=== PATIENT | male | born 1960 | race Caucasian/White ===

== ENCOUNTER 2017-02-09 18:19 | Inpatient (IN) | payer MEDICAID, OTHER ==
[~2017-02-09] VITALS: Ht 182.9 cm; Wt 60.0 kg
[~2017-02-09 18:19] MED LIST: IBUP-232 PO
[2017-02-09 18:39] VITALS: BP 98/57; PULSE 101; RESP 16; TEMP 98.5; O2SAT 95
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
[2017-02-09] MEDS ORDERED: SODIUM CHLOR 0.9% 1000 ML INJ 1,000 ML IV ONE (19:15)
[2017-02-09] MEDS ORDERED: predniSONE 20 MG TAB PO ONE (19:15)
[2017-02-09] MEDS: RESP: ALBUTEROL 2.5 MG/IPRATROPIUM 0.5 MG NEB (SCH) INH ×2 (19:33→19:34)
[2017-02-09 19:34] VITALS: O2SAT 94
[2017-02-09] MEDS ORDERED: HYDR-3534 PO (19:39)
[2017-02-09] MEDS ORDERED: OXYC30TA62 PO (19:39)
--- NOTE | 2017-02-09 19:55 | RADRPT ---
EXAM DATE/TIME: 02/09/2017 19:27 [place] COMPARISON: CHEST SINGLE AP, November 18, 2016, 12:59. INDICATIONS : Short of breath. MEDICAL HISTORY : None. SURGICAL HISTORY : None. ENCOUNTER: Initial ACUITY: 2 days PAIN SCORE: 2/10 LOCATION: Bilateral chest FINDINGS: Trace left base atelectasis. Potentially a hazy infiltrate developing in the right upper lobe. No ple ural effusion. No pneumothorax. Heart size stable, within normal limits. CONCLUSION: Suspected early or mild pneumonia in the right upper lobe. Clinical correlation and followup radiogra phs are recommended. Mild left base atelectasis. Kilo Rowell MD on February 09, 2017 at 19:52 Board Certified Radiologist. This report was verified electronically.
[2017-02-09 20:14] LABS: AUTOMATED NEUTROPHIL # 4.7 TH/MM3 (1.8-7.7); BASOPHIL % 0.3 % (0.0-2.0); EOSINOPHIL # 0.1 TH/MM3 (0-0.4); EOSINOPHIL % 0.8 % (0.0-4.0); HEMATOCRIT 37.4 % (39.0-51.0); HEMO FLAGS DIFF FINAL; LYMPH % 21.4 % (9.0-44.0); LYMPHOCYTE # 1.5 TH/MM3 (1.0-4.8); MEAN CELL VOLUME 106.8 FL (80.0-100.0); MEAN CORPUSCULAR HEMOGLOBIN 35.9 PG (27.0-34.0); MEAN CORPUSCULAR HGB CONC 33.6 % (32.0-36.0); MONO % 9.5 % (0.0-8.0); PLATELET COUNT 110 TH/MM3 (150-450); RED CELL DISTRIBUTION WIDTH 14.2 % (11.6-17.2); WHITE BLOOD COUNT 6.9 TH/MM3 (4.0-11.0)
[2017-02-09 20:21] VITALS: O2SAT 86
[2017-02-09 20:22] LABS: BICARBONATE 29.2 MEQ/L (21.0-32.0); TOTAL BILIRUBIN ADULT 1.1 MG/DL (0.2-1.0)
[2017-02-09 20:23] LABS: POTASSIUM 2.9 MEQ/L (3.5-5.1)
[2017-02-09 20:24] LABS: CALCIUM-PROTEIN CORRECTED 7.2 MG/DL (8.5-10.1)
[2017-02-09] MEDS ORDERED: AZITHROMYCIN INJ 500 MG in SODIUM CHLOR 0.9% 250 ML INJ 250 ML IV ONE (20:45)
[2017-02-09] MEDS ORDERED: POTASSIUM CHLORIDE 25 MEQ EFFERVESCENT TAB PO ONE (20:45)
[2017-02-09] MEDS ORDERED: cefTRIAXone INJ 1,000 MG in SODIUM CHLORIDE 0.9% INJ 100 ML IV ONE (20:45)
[2017-02-09] MEDS ORDERED: CALCIUM GLUCONATE INJ 1 GM in SODIUM CHLORIDE 0.9% INJ 100 ML IV ONE (20:45)
--- NOTE | 2017-02-09 21:07 | HHI.HP ---
[facility] No Primary Care Physician Admission Diagnosis pneumonia, hypokalemia, hypocalcemia Diagnoses: (1) Alcohol abuse Diagnosis: Principal (2) PNA (pneumonia) Diagnosis: Principal (3) Hypoxia Diagnosis: Principal (4) COPD (chronic obstructive pulmonary disease) Diagnosis: Principal (5) Thrombocytopenia Diagnosis: Principal (6) Hypocalcemia Diagnosis: Principal (7) Hypokalemia Diagnosis: Principal (8) Lactic acidosis Diagnosis: Principal Travel History International Travel<30 Days: No Contact w/Intl Traveler <30 Da: No Traveled to Known Affected Are: No History of Present Illness This is a 56-year-old Homeless male with a PMH of Depression, Alcohol Abuse and Tobacco Abuse was brought to the ER by Police under [place] Act. Per patient he drinks half a gallon of unknown alcohol daily. Today was found lying on a bench and unable to ambulate. Patient does report recent cough and generalized malaise. On arrival, BP 98/57, HR 101, O2 sat 95% on RA, Afebrile. While in ER , episode of hypoxia with O2 sat 86% on RA. Currently 98%. CBC at baseline. K + 2.9. Lactic Acid 4.8. Ca 7.3. Alcohol 297. CXR with early or mild pneumonia right upper lobe. S/p Blood Cultures, Rocephin/Zithro in ER. Review of Systems Except as stated in HPI: all other systems reviewed are Neg ROS: 14 point review of systems otherwise negative. Past Family Social History Past Medical History PMH: Depression, Alcohol Abuse and Tobacco Abuse Past Surgical History PAST SURGICAL HISTORY: Plate Head Allergies: Coded Allergies: No Known Allergies (Verified , 02/09/17) Family History PAST FAMILY HISTORY: Reviewed. No h/o DM or CAD Social History PAST SOCIAL HISTORY: Positive for alcohol, tobacco and drugs. Physical Exam Vital Signs Vital Signs Date Time Temp Pulse Resp B/P Pulse Ox O2 Delivery O2 Flow Rate FiO2 02/09/17 20:21 86 Room Air 02/09/17 19:34 94 21 02/09/17 18:39 98.5 101 16 98/57 95 Physical Exam PE: GENERAL: Middle-aged male in no acute distress. HEENT: PERRLA, EOMI. No scleral icterus or conjunctival pallor. No lid lag or facial droop. CARDIOVASCULAR: Regular rate and rhythm. No obvious murmurs to auscultation. No chest tenderness to palpation. RESPIRATORY: No obvious rhonchi, +wheezing. Clear to auscultation. Breath sounds equal bilaterally. GASTROINTESTINAL: Abdomen soft, non-tender, nondistended. BS normal. MUSCULOSKELETAL: Extremities without clubbing, cyanosis, or edema. No obvious deformities. NEUROLOGICAL: Awake, alert and oriented x4. No focal neurologic deficits. Moving both upper and lower extremities spontaneously. Laboratory Laboratory Tests Test 02/09/17 19:47 White Blood Count 6.9 Red Blood Count 3.50 Hemoglobin 12.5 Hematocrit 37.4 Mean Corpuscular Volume 106.8 Mean Corpuscular Hemoglobin 35.9 Mean Corpuscular Hemoglobin 33.6 Concent Red Cell Distribution Width 14.2 Platelet Count 110 Mean Platelet Volume 9.1 Neutrophils (%) (Auto) 68.0 Lymphocytes (%) (Auto) 21.4 Monocytes (%) (Auto) 9.5 Eosinophils (%) (Auto) 0.8 Basophils (%) (Auto) 0.3 Neutrophils # (Auto) 4.7 Lymphocytes # (Auto) 1.5 Monocytes # (Auto) 0.7 Eosinophils # (Auto) 0.1 Basophils # (Auto) 0.0 CBC Comment DIFF FINAL Differential Comment Sodium Level 137 Potassium Level 2.9 Chloride Level 99 Carbon Dioxide Level 29.2 Anion Gap 9 Blood Urea Nitrogen 2 Creatinine 0.51 Estimat Glomerular Filtration 169 Rate Random Glucose 82 Calcium Level 7.3 Protein Corrected Calcium 7.2 Total Bilirubin 1.1 Aspartate Amino Transf 191 (AST/SGOT) Alanine Aminotransferase 52 (ALT/SGPT) Alkaline Phosphatase 129 Total Protein 7.4 Albumin 2.1 Ethyl Alcohol Level 297 Result Diagram: 02/09/17194602/09/171946 Assessment and Plan Problem List: (1) Alcohol abuse ICD Code: F10.10 Status: Acute (2) PNA (pneumonia) ICD Code: J18.9 Status: Acute (3) COPD (chronic obstructive pulmonary disease) ICD Code: J44.9 Status: Acute (4) Lactic acidosis ICD Code: E87.2 Status: Acute (5) Hypoxia ICD Code: R09.02 Status: Acute (6) Hypocalcemia ICD Code: E83.51 Status: Acute (7) Hypokalemia ICD Code: E87.6 Status: Acute (8) Thrombocytopenia ICD Code: D69.6 Status: Acute Assessment and Plan A/P: 1. Alcohol Abuse: w/ Acute Alcohol Intoxication, arrived w/ Police under Dean 's Act. Reports drinking "a gallon" of alcohol today. Alcohol 297. CIWA, Seizure Precautions, MVT/Thiamine/Folate replacement. 2. PNA: +cough, episode of Hypoxia while in ER w/ O2 sat 86% on RA, currently 98%. CXR w/ early or mild pneumonia right upper lobe, images reviewed by me. S /p Rocephin/Zithro in ER, will continue w/ IV Abx, DuoNeb prn. 3. COPD: Chronic Respiratory Failure w/ Acute Exacerbation, +wheezing on exam , s/p Prednisone po in ER, will continue w/ Solu-Medrol, DuoNeb, Symbicort, Mucinex 4. Lactic Acidosis: Lactate 4.8, likely combination of acute infection w/ alcohol intoxication. S/p Blood Cultures, will follow, IVF for hydration, repeat Lactic for trend. 5. Hypocalcemia: Ca 7.3, s/p replacement, will recheck and replace as needed. 6. Hypokalemia: K+ 2.9, s/p replacement, recheck labs in am, replace if needed. 7. Thrombocytopenia: Platelets 110, preivously 155 on 10/21/16, no active bleeding, will repeat labs in am. 8. DVT Prophylaxis: SCD/Teds. 9. Social work for d/c planning as needed. 10. Case discussed w/ ER physician at length. Physician Certification 2 Midnight Certification Type: Admission for Inpatient Services Order for Inpatient Services The services are ordered in accordance with Medicare regulations or non- Medicare payer requirements, as applicable. In the case of services not specified as inpatient-only, they are appropriately provided as inpatient services in accordance with the 2-midnight benchmark. Estimated LOS (days): 2 days is the estimated time the patient will need to remain in the hospital, assuming treatment plan goals are met and no additional complications. Post-Hospital Plan: Not yet determined Mary Salcedo MD Feb 09, 2017 21:06
[2017-02-09] MEDS ORDERED: RESP: ALBUTEROL 2.5 MG/IPRATROPIUM 0.5 MG NEB (PRN) NEB (21:15)
[2017-02-09] MEDS ORDERED: MAGNESIUM HYDROXIDE SUSP 30 ML CUP PO PRN (21:15)
[2017-02-09] MEDS ORDERED: HALOPERIDOL LACTATE 5 MG/ML AMP IM PRN (21:15)
[2017-02-09] MEDS ORDERED: LORazepam 2 MG/ML VIAL IV PUSH PRN ×2 (21:15)
[2017-02-09] MEDS ORDERED: ACETAMINOPHEN 325 MG TAB PO PRN (21:15)
[2017-02-09] MEDS ORDERED: SODIUM CHLORIDE 0.9% FLUSH 10 ML FLUSH IV FLUSH PRN (21:15)
[2017-02-09] MEDS ORDERED: SENNOSIDES 8.6 MG TAB PO PRN (21:15)
[2017-02-09] MEDS ORDERED: LACTULOSE SYRUP 20 GM/30 ML CUP PO PRN (21:15)
[2017-02-09] MEDS ORDERED: MORPHINE SULFATE 4 MG/ML INJ IV PRN (21:15)
[2017-02-09] MEDS ORDERED: FLUMAZENIL 0.5 MG/5 ML VIAL IV PUSH PRN (21:15)
[2017-02-09] MEDS ORDERED: BISACODYL 10 MG SUPP RECTAL PRN (21:15)
[2017-02-09] MEDS ORDERED: ONDANSETRON HCL 4 MG/2 ML VIAL IVP PRN (21:15)
[2017-02-09 22:01] VITALS: BP 100/66; PULSE 112; RESP 20; TEMP 98.2; O2SAT 90
[2017-02-09] MEDS: LORazepam 2 MG/ML VIAL IV PUSH PRN (22:02)
[2017-02-09] MEDS: SODIUM CHLOR 0.9% 1000 ML INJ 1,000 ML IV SCH (22:12)
[2017-02-09] MEDS: guaiFENesin E.R. 600 MG TAB PO SCH (22:12)
[2017-02-09] MEDS: BUDESONIDE-FORMOTEROL 160/4.5 MCG INHALER INH SCH (22:46)
[2017-02-09 23:06] LABS: LACTIC ACID GHOST NOT REPORTABLE
[2017-02-09] MEDS: methylPREDNISolone SOD SUCC 40 MG/1 ML VIAL IV PUSH SCH (23:57)
[2017-02-10] VITALS (13 sets, daily range): BP systolic 103–127; BP diastolic 62–94; PULSE 82–120; RESP 18–20; TEMP 96.9–98.3; O2SAT 92–99
[2017-02-10] MEDS: methylPREDNISolone SOD SUCC 40 MG/1 ML VIAL IV PUSH SCH ×4 (06:15→23:11)
[2017-02-10] MEDS: SODIUM CHLOR 0.9% 1000 ML INJ 1,000 ML IV SCH ×2 (07:01→17:01)
[2017-02-10] MEDS: BUDESONIDE-FORMOTEROL 160/4.5 MCG INHALER INH SCH ×2 (08:48→21:44)
[2017-02-10] MEDS: THIAMINE HCL 100 MG TAB PO SCH (08:49)
[2017-02-10] MEDS: MULTIVITAMINS/MINERALS THERAPEUTIC TAB PO SCH (08:49)
[2017-02-10] MEDS: guaiFENesin E.R. 600 MG TAB PO SCH ×2 (08:49→21:44)
[2017-02-10] MEDS: SODIUM CHLORIDE 0.9% FLUSH 10 ML FLUSH IV FLUSH SCH ×2 (08:49→21:45)
[2017-02-10] MEDS: DOCUSATE SODIUM 50 MG/SENNA 8.6 MG TAB PO SCH ×2 (08:49→21:00)
[2017-02-10] MEDS: FOLIC ACID 1 MG TAB PO SCH (08:49)
[2017-02-10] MEDS: LORazepam 1 MG TAB PO PRN ×2 (09:22→21:45)
--- NOTE | 2017-02-10 09:58 | HHI.PR ---
Subjective Remarks Follow up for pneumonia, COPD exacerbation, alcohol abuse. The patient is drowsy upon my evaluation but awakens to answer few questions. He reports recent productive cough with yellow-green sputum. He reports chills and sweats sometimes, but no fevers. He denies chest pain. Does have shortness of breath and occasional wheezing. He states he feels just weak. He does report history of alcohol withdrawal and seizures in the past. Objective Vitals Vital Signs Date Time Temp Pulse Resp B/P Pulse Ox O2 Delivery O2 Flow Rate FiO2 02/10/17 07:48 98.0 82 18 123/89 99 02/10/17 04:04 96.9 89 18 110/73 94 02/10/17 03:45 87 02/10/17 00:21 97 02/10/17 00:08 97.0 98 18 103/62 98 02/09/17 22:01 98.2 112 20 100/66 90 Room Air 02/09/17 20:21 86 Room Air 02/09/17 19:34 94 21 02/09/17 18:39 98.5 101 16 98/57 95 Result Diagram: 02/09/17194602/09/171946 Imaging Last Impressions Chest X-Ray 02/09/17 0000 Signed Impressions: Service Date/Time: Thursday, February 09, 2017 19:27 - CONCLUSION: Suspected early or mild pneumonia in the right upper lobe. Clinical correlation and followup radiographs are recommended. Mild left base atelectasis. Kilo Rowell MD Objective Remarks GENERAL: Well-nourished, well-developed unkempt appearing middle aged male patient in [facility]. SKIN: Warm and dry. No rash. HEENT: Normocephalic. Atraumatic.Pupils equal and round. Mucous membranes pink and moist. NECK: Supple. Trachea midline. CARDIOVASCULAR: Regular rate and rhythm. S1, S2 noted. No murmur appreciated. RESPIRATORY: No accessory muscle use. Diffuse expiratory wheezing. Breath sounds equal bilaterally. GASTROINTESTINAL: Abdomen soft, non-tender, nondistended. Normoactive bowel sounds x4. MUSCULOSKELETAL: No obvious deformities. Extremities without clubbing, cyanosis , or edema. NEUROLOGICAL: Awake and alert. No obvious cranial nerve deficits. Motor grossly within normal limits. Normal speech. PSYCHIATRIC: Appropriate mood and affect; insight and judgment normal. Medications and IVs Current Medications Medications (Trade) Dose Ordered Sig/Veronika Route Start Time Stop Time Status Last Admin (Levaquin 750 Mg Premix Inj) 150 ml @ 100 mls/hr Q24H IV 02/10/17 21:00 (Mucinex Er) 600 mg BID PO 02/09/17 21:15 02/10/17 08:49 (Symbicort 160-4.5 Inh) 2 puff Q12HR INH 02/09/17 21:15 02/10/17 08:48 (Folate) 1 mg DAILY PO 02/10/17 09:00 02/15/17 08:59 02/10/17 08:49 (Vitamin B1) 100 mg DAILY PO 02/10/17 09:00 02/10/17 08:49 (Theragran M Tab) 1 tab DAILY PO 02/10/17 09:00 02/15/17 08:59 02/10/17 08:49 (Romazicon Inj) 0.2 mg Q1M PRN IV PUSH 02/09/17 21:15 (Ativan) 1 mg Q4H PRN PO 02/09/17 21:15 02/10/17 09:22 (Ativan Inj) 1 mg Q4H PRN IV PUSH 02/09/17 21:15 02/10/17 06:15 (Ativan) 2 mg Q2H PRN PO 02/09/17 21:15 (Ativan Inj) 2 mg Q2H PRN IV PUSH 02/09/17 21:15 (Ativan Inj) 2 mg Q1H PRN IV PUSH 02/09/17 21:15 02/09/17 22:02 (Ativan Inj) 2 mg Q15M PRN IV PUSH 02/09/17 21:15 Haloperidol Lactate 2 mg 2 mg Q15M PRN IM 02/09/17 21:15 (NS 1000 ml Inj) 1,000 ml @ 100 mls/hr Q10H IV 02/09/17 21:01 02/10/17 07:01 (NS Flush) 2 ml UNSCH PRN IV FLUSH 02/09/17 21:15 (NS Flush) 2 ml BID IV FLUSH 02/10/17 09:00 (Zofran Inj) 4 mg Q6H PRN IVP 02/09/17 21:15 (Tylenol) 650 mg Q6H PRN PO 02/09/17 21:15 ([place] 5-325 Mg) 1 tab Q4H PRN PO 02/09/17 21:15 (Morphine Inj) 2 mg Q3H PRN IV 02/09/17 21:15 (Christal-Colace) 1 tab BID PO 02/10/17 09:00 (Milk Of Magnesia Liq) 30 ml Q12H PRN PO 02/09/17 21:15 (Senokot) 17.2 mg Q12H PRN PO 02/09/17 21:15 (Dulcolax Supp) 10 mg DAILY PRN RECTAL 02/09/17 21:15 (Lactulose Liq) 30 ml DAILY PRN PO 02/09/17 21:15 (SoluMEDROL INJ) 40 mg Q6HR IV PUSH 02/10/17 00:00 02/10/17 06:15 A/P Problem List: (1) Alcohol abuse ICD Code: F10.10 Status: Acute (2) PNA (pneumonia) ICD Code: J18.9 Status: Acute (3) COPD (chronic obstructive pulmonary disease) ICD Code: J44.9 Status: Acute (4) Lactic acidosis ICD Code: E87.2 Status: Acute (5) Hypoxia ICD Code: R09.02 Status: Acute (6) Hypocalcemia ICD Code: E83.51 Status: Acute (7) Hypokalemia ICD Code: E87.6 Status: Acute (8) Thrombocytopenia ICD Code: D69.6 Status: Acute Assessment and Plan 56-year-old Homeless male with a PMH of Depression, Alcohol Abuse and Tobacco Abuse was brought to the ER by Police under [place] Act. Alcohol Abuse: w/ Acute Alcohol Intoxication, arrived w/ Police under [place]'s Act. Reports drinking "a gallon" of alcohol today. Alcohol 297. CIWA, Seizure Precautions, MVT/Thiamine/Folate replacement. Community Acquired PNA: +cough/sputum; episode of hypoxia while in ER w/ O2 sat 86% on RA, currently 98%. CXR images reviewed, shows pneumonia right upper lobe. Check sputum culture. Continue antibiotics with IV Levaquin. DuoNeb prn. Acute COPD Exacerbation: +wheezing on exam with hypoxia. Continue w/ Solu- Medrol 40mg IV q6h, DuoNeb q6h veronika and q4h prn, Symbicort bid, Mucinex bid. O2 as needed. Monitor for improvement. Lactic Acidosis: Lactate 4.8, likely combination of acute infection w/ alcohol intoxication. Monitor Blood Cultures. Give IVF for hydration. Monitor lactic acid, currently 3.3. Hypocalcemia: Ca 7.3, s/p replacement, will recheck and replace as needed. Hypokalemia: K+ 2.9, s/p replacement, recheck labs in am, replace if needed. Thrombocytopenia: Platelets 110, previously 155 on 10/21/16, no active bleeding , will repeat labs. DVT Prophylaxis: SCD/Teds. Discharge Planning Discharge pending further clinical improvement. Likely needs additional 2-3 days of hospitalization. Lis Darling PA-C Feb 10, 2017 9:58 am
[2017-02-10 10:10] LABS: AUTOMATED NEUTROPHIL # 4.2 TH/MM3 (1.8-7.7); BASOPHIL % 0.3 % (0.0-2.0); HEMATOCRIT 38.4 % (39.0-51.0); HEMO FLAGS DIFF FINAL; LYMPH % 10.9 % (9.0-44.0); LYMPHOCYTE # 0.5 TH/MM3 (1.0-4.8); MEAN CELL VOLUME 105.9 FL (80.0-100.0); MEAN CORPUSCULAR HEMOGLOBIN 36.3 PG (27.0-34.0); MEAN CORPUSCULAR HGB CONC 34.3 % (32.0-36.0); MONO % 2.1 % (0.0-8.0); NEUT % 86.7 % (16.0-70.0); PLATELET COUNT 100 TH/MM3 (150-450); RED BLOOD COUNT 3.62 MIL/MM3 (4.50-5.90); RED CELL DISTRIBUTION WIDTH 13.9 % (11.6-17.2); WHITE BLOOD COUNT 4.9 TH/MM3 (4.0-11.0)
[2017-02-10 10:38] LABS: BICARBONATE 29.5 MEQ/L (21.0-32.0); MAGNESIUM 1.5 MG/DL (1.5-2.5); POTASSIUM 3.6 MEQ/L (3.5-5.1); TOTAL BILIRUBIN ADULT 1.1 MG/DL (0.2-1.0)
[2017-02-10 10:43] LABS: CALCIUM-PROTEIN CORRECTED 7.2 MG/DL (8.5-10.1)
[2017-02-10 12:36] LABS: AUTOMATED NEUTROPHIL # 5.5 TH/MM3 (1.8-7.7); BASOPHIL % 0.3 % (0.0-2.0); HEMATOCRIT 38.2 % (39.0-51.0); HEMO FLAGS DIFF FINAL; LYMPH % 11.5 % (9.0-44.0); LYMPHOCYTE # 0.8 TH/MM3 (1.0-4.8); MEAN CELL VOLUME 105.9 FL (80.0-100.0); MEAN CORPUSCULAR HEMOGLOBIN 35.6 PG (27.0-34.0); MEAN CORPUSCULAR HGB CONC 33.6 % (32.0-36.0); MONO % 6.4 % (0.0-8.0); NEUT % 81.8 % (16.0-70.0); PLATELET COUNT 104 TH/MM3 (150-450); WHITE BLOOD COUNT 6.7 TH/MM3 (4.0-11.0)
[2017-02-10] MEDS: LORazepam 2 MG TAB PO PRN (13:12)
[2017-02-10] MEDS: MAGNESIUM SULFATE 1 GM PREMIX 100 ML IV SCH ×2 (13:43→14:47)
[2017-02-10] MEDS ORDERED: CALCIUM GLUCONATE INJ 1 GM in SODIUM CHLORIDE 0.9% INJ 100 ML IV ONE (14:00)
[2017-02-10 15:41] LABS: BLOOD, URINE MOD (NEG); GLUCOSE,URINE NEG (NEG); KETONE, URINE NEG (NEG); MUCUS URINE FEW /lpf (OCC); NITRITE,URINE NEG (NEG); PH, URINE 5.5 (5.0-8.5); SQUAMOUS EPITHELIAL CELL URINE 1 /hpf (0-5)
[2017-02-10 15:43] LABS: COMMENT (UR) CULT NOT INDICATED; CULTURE IF INDICATED CULT NOT INDICATED; URINE COLOR DARK-BROWN (YELLW/STRAW)
[2017-02-10] MEDS: RESP: ALBUTEROL 2.5 MG/IPRATROPIUM 0.5 MG NEB (SCH) NEB (20:52)
[2017-02-10] MEDS: CALCIUM CARBONATE 500 MG CHEWABLE TAB CHEW SCH (21:44)
[2017-02-10] MEDS: LEVOFLOXACIN 750 MG PREMIX INJ 150 ML IV SCH (21:45)
[2017-02-10 22:26] LABS: LACTIC ACID GHOST NOT REPORTABLE
[2017-02-11] VITALS (9 sets, daily range): BP systolic 119–142; BP diastolic 80–96; PULSE 68–112; RESP 17–20; TEMP 96.8–98.3; O2SAT 62–100
[2017-02-11] MEDS: SODIUM CHLOR 0.9% 1000 ML INJ 1,000 ML IV SCH ×2 (02:01→13:01)
[2017-02-11] MEDS: LORazepam 1 MG TAB PO PRN (02:08)
[2017-02-11 02:37] LABS: BICARBONATE 32.2 MEQ/L (21.0-32.0); MAGNESIUM 1.9 MG/DL (1.5-2.5); POTASSIUM 3.8 MEQ/L (3.5-5.1)
[2017-02-11] MEDS: methylPREDNISolone SOD SUCC 40 MG/1 ML VIAL IV PUSH SCH ×3 (05:03→17:32)
[2017-02-11] MEDS ORDERED: MAGNESIUM SULFATE 1 GM PREMIX 100 ML IV ONE (07:00)
[2017-02-11] MEDS: RESP: ALBUTEROL 2.5 MG/IPRATROPIUM 0.5 MG NEB (SCH) NEB ×3 (07:09→21:39)
[2017-02-11] MEDS: CALCIUM CARBONATE 500 MG CHEWABLE TAB CHEW SCH ×3 (09:00→20:19)
[2017-02-11] MEDS: guaiFENesin E.R. 600 MG TAB PO SCH ×3 (09:00→20:19)
[2017-02-11] MEDS: FOLIC ACID 1 MG TAB PO SCH ×2 (09:00→09:53)
[2017-02-11] MEDS: BUDESONIDE-FORMOTEROL 160/4.5 MCG INHALER INH SCH ×3 (09:00→21:00)
[2017-02-11] MEDS: DOCUSATE SODIUM 50 MG/SENNA 8.6 MG TAB PO SCH ×2 (09:00→20:23)
[2017-02-11] MEDS: SODIUM CHLORIDE 0.9% FLUSH 10 ML FLUSH IV FLUSH SCH ×2 (09:00→20:23)
[2017-02-11] MEDS: MULTIVITAMINS/MINERALS THERAPEUTIC TAB PO SCH ×2 (09:00→09:53)
[2017-02-11] MEDS: THIAMINE HCL 100 MG TAB PO SCH ×2 (09:00→09:53)
--- NOTE | 2017-02-11 13:41 | HHI.PR ---
Subjective Remarks Follow up for pneumonia, COPD exacerbation, alcohol abuse. Patient seen at 9am. The patient is sleeping upon arrival but easily awakens. He reports continued cough productive of yellow-green sputum. He reports shortness of breath and occasional wheezing. Denies fevers/chills today. Denies chest pains. He is oriented to person, place, month/year. He has no other medical complaints at this time. Objective Vitals Vital Signs Date Time Temp Pulse Resp B/P (MAP) Pulse Ox O2 Delivery O2 Flow Rate FiO2 02/11/17 07:46 98.0 95 20 119/81 (94) 93 02/11/17 07:45 96.8 83 127/80 (96) 96 02/11/17 07:09 98 Nasal Cannula 3.00 02/11/17 04:05 98.0 87 19 142/96 (111) 100 02/11/17 04:00 112 02/11/17 00:00 92 02/10/17 23:07 98.0 101 20 121/90 (100) 97 02/10/17 20:54 97 Nasal Cannula 3.00 02/10/17 20:00 112 02/10/17 19:38 97.9 99 18 124/94 (104) 97 02/10/17 15:39 98.3 101 18 119/89 (99) 95 02/10/17 14:08 120 I/O 02/10/17 02/10/17 02/10/17 02/11/17 02/11/17 02/11/17 07:00 15:00 23:00 07:00 15:00 23:00 Output Total 350 ml 300 ml 700 ml Balance -350 ml -300 ml -700 ml Output Urine Total 350 ml 300 ml 700 ml # Voids 2 Result Diagram: 02/10/17 1218 02/11/17 0213 Imaging Last Impressions Chest X-Ray 02/09/17 0000 Signed Impressions: Service Date/Time: Thursday, February 09, 2017 19:27 - CONCLUSION: Suspected early or mild pneumonia in the right upper lobe. Clinical correlation and followup radiographs are recommended. Mild left base atelectasis. Kilo Rowell MD Objective Remarks GENERAL: Well-nourished, well-developed unkempt appearing middle aged male patient in [facility]. SKIN: Warm and dry. No rash. HEENT: Normocephalic. Atraumatic.Pupils equal and round. Mucous membranes pink and moist. NECK: Supple. Trachea midline. CARDIOVASCULAR: Regular rate and rhythm. S1, S2 noted. No murmur appreciated. RESPIRATORY: No accessory muscle use. Diffuse expiratory wheezing with scattered rhonchi. Breath sounds equal bilaterally. GASTROINTESTINAL: Abdomen soft, non-tender, nondistended. Normoactive bowel sounds x4. MUSCULOSKELETAL: No obvious deformities. Extremities without clubbing, cyanosis , or edema. NEUROLOGICAL: Awake and alert. No obvious cranial nerve deficits. Motor grossly within normal limits. Normal speech. PSYCHIATRIC: Appropriate mood and affect; insight and judgment normal. Medications and IVs Current Medications Medications (Trade) Dose Ordered Sig/Veronika Route Start Time Stop Time Status Last Admin Levofloxacin/ Dextrose 150 ml @ 100 mls/hr Q24H IV 02/10/17 21:00 02/10/17 21:45 (Duoneb Neb) 1 ampule Q4HR NEB PRN NEB 02/09/17 21:15 (Mucinex Er) 600 mg BID PO 02/09/17 21:15 02/10/17 21:44 (Symbicort 160-4.5 Inh) 2 puff Q12HR INH 02/09/17 21:15 02/10/17 21:44 (Folate) 1 mg DAILY PO 02/10/17 09:00 02/15/17 08:59 02/10/17 08:49 (Vitamin B1) 100 mg DAILY PO 02/10/17 09:00 02/10/17 08:49 (Theragran M Tab) 1 tab DAILY PO 02/10/17 09:00 02/15/17 08:59 02/10/17 08:49 (Romazicon Inj) 0.2 mg Q1M PRN IV PUSH 02/09/17 21:15 (Ativan) 1 mg Q4H PRN PO 02/09/17 21:15 02/11/17 02:08 (Ativan Inj) 1 mg Q4H PRN IV PUSH 02/09/17 21:15 02/10/17 06:15 (Ativan) 2 mg Q2H PRN PO 02/09/17 21:15 02/10/17 13:12 (Ativan Inj) 2 mg Q2H PRN IV PUSH 02/09/17 21:15 (Ativan Inj) 2 mg Q1H PRN IV PUSH 02/09/17 21:15 02/09/17 22:02 (Ativan Inj) 2 mg Q15M PRN IV PUSH 02/09/17 21:15 (Haldol Inj) 2 mg Q15M PRN IM 02/09/17 21:15 Sodium Chloride 1,000 ml @ 100 mls/hr Q10H IV 02/09/17 21:01 02/11/17 02:01 (NS Flush) 2 ml UNSCH PRN IV FLUSH 02/09/17 21:15 (NS Flush) 2 ml BID IV FLUSH 02/10/17 09:00 02/10/17 21:45 (Zofran Inj) 4 mg Q6H PRN IVP 02/09/17 21:15 (Tylenol) 650 mg Q6H PRN PO 02/09/17 21:15 (Elizabeth 5-325 Mg) 1 tab Q4H PRN PO 02/09/17 21:15 (Morphine Inj) 2 mg Q3H PRN IV 02/09/17 21:15 02/10/17 21:57 (Christal-Colace) 1 tab BID PO 02/10/17 09:00 (Milk Of Magnesia Liq) 30 ml Q12H PRN PO 02/09/17 21:15 (Senokot) 17.2 mg Q12H PRN PO 02/09/17 21:15 (Dulcolax Supp) 10 mg DAILY PRN RECTAL 02/09/17 21:15 (Lactulose Liq) 30 ml DAILY PRN PO 02/09/17 21:15 (SoluMEDROL INJ) 40 mg Q6HR IV PUSH 02/10/17 00:00 02/11/17 05:03 (Duoneb Neb) 1 ampule Q6HR WHILE AWAKE NEB NEB 02/10/17 14:00 02/11/17 13:15 (Tums Chew) 500 mg Q12HR CHEW 02/10/17 21:00 02/10/17 21:44 (Librium) 10 mg Q6H PO 02/10/17 17:00 02/11/17 05:03 A/P Problem List: (1) Alcohol abuse ICD Code: F10.10 - Alcohol abuse, uncomplicated Status: Acute (2) PNA (pneumonia) ICD Code: J18.9 - Pneumonia, unspecified organism Status: Acute (3) COPD (chronic obstructive pulmonary disease) ICD Code: J44.9 - Chronic obstructive pulmonary disease, unspecified Status: Acute (4) Lactic acidosis ICD Code: E87.2 - Acidosis Status: Acute (5) Hypoxia ICD Code: R09.02 - Hypoxemia Status: Acute (6) Hypocalcemia ICD Code: E83.51 - Hypocalcemia Status: Acute (7) Hypokalemia ICD Code: E87.6 - Hypokalemia Status: Acute (8) Thrombocytopenia ICD Code: D69.6 - Thrombocytopenia, unspecified Status: Acute Assessment and Plan 56-year-old Homeless male with a PMH of Depression, Alcohol Abuse and Tobacco Abuse was brought to the ER by Police under [employer] Act. Alcohol Abuse: presented w/ Acute Alcohol Intoxication, arrived w/ Police under [employer] Act. Reports drinking "a gallon" of alcohol. Alcohol 297. High risk of withdrawal. CIWA, Seizure Precautions, MVT/Thiamine/Folate replacement. Started on Librium 10mg q6h. The patient will need to go to [facility] once medically stable. Community Acquired PNA: +cough/sputum; episode of hypoxia while in ER w/ O2 sat 86% on RA, currently 98%. CXR images reviewed, shows pneumonia right upper lobe. Sputum culture pending. Continue antibiotics with IV Levaquin. DuoNeb q6h and prn. Acute COPD Exacerbation: +wheezing on exam with hypoxia. Continue w/ Solu- Medrol 40mg IV q6h, DuoNeb q6h veronika and q4h prn, Symbicort bid, Mucinex bid. O2 as needed. Monitor for improvement. Lactic Acidosis: Lactate 4.8, likely combination of acute infection w/ alcohol intoxication. Monitor Blood Cultures. Give IVF for hydration. Monitor lactic acid, currently 2.3. Hypocalcemia: Ca 7.3, s/p IV Calcium gluconate replacement, repeat Ca 7.9. Continue calcium carbonate bid. Hypokalemia: K+ 2.9, s/p replacement, repeat K 3.8. Hypomagnesemia: Mag 1.5, s/p IV Mag Sulfate x2G, repeat Mag 1.9. Thrombocytopenia: Platelets 110, previously 155 on 10/21/16, no active bleeding , repeat plts stable. DVT Prophylaxis: SCD/Teds. Discharge Planning Discharge pending further clinical improvement. Likely needs additional 2-3 days of hospitalization. Patient is here under Act, will need to go to [facility] after discharge. Lis Darling PA-C Feb 11, 2017 1:41 pm
[2017-02-11] MEDS: LORazepam 2 MG/ML VIAL IV PUSH PRN ×2 (14:08→20:16)
[2017-02-11] MEDS: LORazepam 2 MG TAB PO PRN (18:18)
[2017-02-11] MEDS: LEVOFLOXACIN 750 MG PREMIX INJ 150 ML IV SCH (20:19)
[2017-02-11] MEDS: THIAMINE INJ 100 MG in SODIUM CHLORIDE 0.9% INJ 100 ML IV SCH (22:27)
[2017-02-12] VITALS (7 sets, daily range): BP systolic 116–154; BP diastolic 75–106; PULSE 105–126; RESP 18–22; TEMP 95.6–98; O2SAT 93–96
[2017-02-12] MEDS: methylPREDNISolone SOD SUCC 40 MG/1 ML VIAL IV PUSH SCH ×3 (00:49→10:47)
[2017-02-12] MEDS: SODIUM CHLOR 0.9% 1000 ML INJ 1,000 ML IV SCH (00:49)
[2017-02-12] MEDS: ACETAMINOPHEN/HYDROcodone 325 MG/5 MG TAB PO PRN (02:00)
[2017-02-12] MEDS: LORazepam 2 MG/ML VIAL IV PUSH PRN (05:00)
--- NOTE | 2017-02-12 06:11 | RADRPT ---
EXAM DATE/TIME: 02/12/2017 05:48 [place] COMPARISON: CHEST SINGLE AP, February 09, 2017, 19:27. INDICATIONS : Short of breath, evaluate pneumonia MEDICAL HISTORY : prior rib fractures SURGICAL HISTORY : right arm ENCOUNTER: Subsequent ACUITY: 1 day PAIN SCORE: Non-responsive. LOCATION: Bilateral chest FINDINGS: Subsegmental basilar airspace disease. No significant effusion. No pneumothorax. Heart size within no rmal limits. CONCLUSION: 1. Subsegmental basilar airspace disease most characteristic of atelectasis. Ruy Hussein MD on February 12, 2017 at 6:09 Board Certified Radiologist. This report was verified electronically.
[2017-02-12 08:00] LABS: AUTOMATED NEUTROPHIL # 4.5 TH/MM3 (1.8-7.7); HEMATOCRIT 39.3 % (39.0-51.0); LYMPH % 6.8 % (9.0-44.0); LYMPHOCYTE # 0.3 TH/MM3 (1.0-4.8); MEAN CELL VOLUME 106.2 FL (80.0-100.0); NEUT % 89.2 % (16.0-70.0); PLATELET COUNT 97 TH/MM3 (150-450); RED CELL DISTRIBUTION WIDTH 14.3 % (11.6-17.2)
[2017-02-12 08:07] LABS: HEMO FLAGS AUTO DIFF
[2017-02-12 08:29] LABS: BICARBONATE 30.6 MEQ/L (21.0-32.0); POTASSIUM 3.7 MEQ/L (3.5-5.1)
[2017-02-12] MEDS: RESP: ALBUTEROL 2.5 MG/IPRATROPIUM 0.5 MG NEB (SCH) NEB ×2 (08:39→13:50)
[2017-02-12 08:46] LABS: PLATELET ESTIMATE SMEAR LOW (NORMAL); PLATELET MORPHOLOGY ENLARGED (NORMAL); SCAN/DIFF AUTO DIFF CONFIRMED
[2017-02-12] MEDS: DOCUSATE SODIUM 50 MG/SENNA 8.6 MG TAB PO SCH ×2 (09:00→20:22)
[2017-02-12] MEDS: MULTIVITAMINS/MINERALS THERAPEUTIC TAB PO SCH (10:46)
[2017-02-12] MEDS: FOLIC ACID 1 MG TAB PO SCH (10:46)
[2017-02-12] MEDS: CALCIUM CARBONATE 500 MG CHEWABLE TAB CHEW SCH ×2 (10:46→20:11)
[2017-02-12] MEDS: guaiFENesin E.R. 600 MG TAB PO SCH ×2 (10:46→20:11)
--- NOTE | 2017-02-12 13:50 | HHI.PR ---
Subjective Remarks Follow up for pneumonia, COPD exacerbation, alcohol abuse. Patient is doing well on room air. However, he feels fatigued. No fever, chills. Objective Vitals Vital Signs Date Time Temp Pulse Resp B/P (MAP) Pulse Ox O2 Delivery O2 Flow Rate FiO2 02/12/17 12:50 95.6 114 22 116/99 (105) 96 02/12/17 11:00 115 18 142/97 (112) 96 02/12/17 08:00 97.6 116 20 144/98 (113) 95 02/12/17 05:00 97.7 105 22 140/94 (109) 94 02/12/17 00:00 97.0 108 19 142/94 (110) 93 02/11/17 21:41 96 Nasal Cannula 2.00 02/11/17 20:00 98.3 102 17 123/92 (102) 92 02/11/17 14:59 96.9 68 18 122/80 (94) 62 I/O 02/11/17 02/11/17 02/11/17 02/12/17 02/12/17 02/12/17 06:59 14:59 22:59 06:59 14:59 22:59 Intake Total 720 ml 480 ml Output Total 300 ml 700 ml 2700 ml 4000 ml Balance -300 ml -700 ml -1980 ml -3520 ml Intake Oral 720 ml 480 ml Output Urine Total 300 ml 700 ml 2700 ml 4000 ml # Bowel Movements 1 0 Result Diagram: 02/12/17 0730 02/12/17 0730 Imaging Last Impressions Chest X-Ray 02/09/17 0000 Signed Impressions: Service Date/Time: Thursday, February 09, 2017 19:27 - CONCLUSION: Suspected early or mild pneumonia in the right upper lobe. Clinical correlation and followup radiographs are recommended. Mild left base atelectasis. Kilo Rowell MD Objective Remarks GENERAL: AOX3, NAD. SKIN: Warm and dry. HEAD: Normocephalic. EYES: No scleral icterus. No injection or drainage. NECK: Supple, trachea midline. No JVD or lymphadenopathy. CARDIOVASCULAR: Regular rate and rhythm without murmurs, gallops, or rubs. RESPIRATORY: Moderate air entry, scattered mild wheezing, no accessory muscle use. GASTROINTESTINAL: Abdomen soft, non-tender, nondistended. MUSCULOSKELETAL: No cyanosis, or edema. BACK: Nontender without obvious deformity. No CVA tenderness. Procedures None. A/P Problem List: (1) Alcohol abuse ICD Code: F10.10 - Alcohol abuse, uncomplicated Status: Acute (2) PNA (pneumonia) ICD Code: J18.9 - Pneumonia, unspecified organism Status: Acute (3) COPD (chronic obstructive pulmonary disease) ICD Code: J44.9 - Chronic obstructive pulmonary disease, unspecified Status: Acute (4) Lactic acidosis ICD Code: E87.2 - Acidosis Status: Acute (5) Hypoxia ICD Code: R09.02 - Hypoxemia Status: Acute (6) Hypocalcemia ICD Code: E83.51 - Hypocalcemia Status: Acute (7) Hypokalemia ICD Code: E87.6 - Hypokalemia Status: Acute (8) Thrombocytopenia ICD Code: D69.6 - Thrombocytopenia, unspecified Status: Acute Assessment and Plan 56-year-old Homeless male with a PMH of Depression, Alcohol Abuse and Tobacco Abuse was brought to the ER by Police under [employer] Act. Alcohol Abuse: presented w/ Acute Alcohol Intoxication, [facility]. Reports drinking "a gallon" of alcohol. Alcohol 297. High risk of withdrawal. CIWA, Seizure Precautions, MVT/Thiamine/Folate replacement. Started on Librium 10mg q6h. The patient will need to go to [facility] once medically stable. Community Acquired PNA: +cough/sputum; episode of hypoxia while in ER w/ O2 sat 86% on RA, currently 98%. - CXR images reviewed by me on 02/12/2017, shows pneumonia right upper lobe. - Will start incentive spirometry as well. CXR showed atelectasis. - Repeat CXR reviewed by me on 02/12/2017, shows blunting of the costophrenic angles. Suspicious for aspiration PNA as well. - Continue antibiotics with Levaquin. Will add Flagyl. DuoNeb q6h and prn. Acute COPD Exacerbation: +wheezing on exam - Symbicort bid, Mucinex bid. O2 as needed. - D/C Solu-medrol, start Prednisone 20mg BID and continue breathing tx. Lactic Acidosis: Lactate 4.8, likely combination of acute infection w/ alcohol intoxication. currently 2.3. Hypocalcemia: Ca 7.3, s/p IV Calcium gluconate replacement, repeat Ca 7.9. Continue calcium carbonate bid. Hypokalemia: K+ 2.9, s/p replacement, repeat K 3.8. Hypomagnesemia: Mag 1.5, s/p IV Mag Sulfate x2G, repeat Mag 1.9. Thrombocytopenia: Platelets 110, previously 155 on 10/21/16, no active bleeding , repeat plts stable. DVT Prophylaxis: SCD/Teds. Merna Millard DO Feb 12, 2017 13:50
[2017-02-12] MEDS: LEVOFLOXACIN 750 MG TAB PO SCH (18:26)
[2017-02-12] MEDS: SODIUM CHLORIDE 0.9% FLUSH 10 ML FLUSH IV FLUSH SCH ×2 (18:27→20:16)
[2017-02-12] MEDS: BUDESONIDE-FORMOTEROL 160/4.5 MCG INHALER INH SCH ×2 (18:35→20:21)
[2017-02-12] MEDS: DIAZEPAM 5 MG TAB PO PRN (20:11)
[2017-02-12] MEDS: predniSONE 20 MG TAB PO SCH (20:11)
[2017-02-12] MEDS: NICOTINE 14 MG/24 HR PATCH T-DERMAL SCH (20:14)
[2017-02-12] MEDS ORDERED: REMOVE OLD PATCH T-DERMAL SCH (21:00)
[2017-02-12] MEDS: metroNIDAZOLE 500 MG TAB PO SCH (22:14)
[2017-02-12] MEDS: THIAMINE INJ 100 MG in SODIUM CHLORIDE 0.9% INJ 100 ML IV SCH (22:14)
[2017-02-13] VITALS: BP 148/104; PULSE 86; RESP 18; TEMP 97.6; O2SAT 100
[2017-02-13] MEDS: DIAZEPAM 5 MG TAB PO PRN ×2 (03:30→11:49)
[2017-02-13 04:00] VITALS: BP 145/99; PULSE 93; RESP 18; TEMP 96.4; O2SAT 97
[2017-02-13] MEDS: ACETAMINOPHEN/HYDROcodone 325 MG/5 MG TAB PO PRN ×2 (04:10→08:34)
[2017-02-13] MEDS: metroNIDAZOLE 500 MG TAB PO SCH (04:11)
[2017-02-13 08:00] VITALS: BP 159/111; PULSE 93; RESP 18; TEMP 97.8; O2SAT 97
[2017-02-13] MEDS: RESP: ALBUTEROL 2.5 MG/IPRATROPIUM 0.5 MG NEB (SCH) NEB ×2 (08:00→09:10)
[2017-02-13] MEDS: guaiFENesin E.R. 600 MG TAB PO SCH (08:34)
[2017-02-13] MEDS: DOCUSATE SODIUM 50 MG/SENNA 8.6 MG TAB PO SCH (08:34)
[2017-02-13] MEDS: NICOTINE 14 MG/24 HR PATCH T-DERMAL SCH (08:34)
[2017-02-13] MEDS: predniSONE 20 MG TAB PO SCH (08:34)
[2017-02-13] MEDS: CALCIUM CARBONATE 500 MG CHEWABLE TAB CHEW SCH (08:34)
[2017-02-13] MEDS: FOLIC ACID 1 MG TAB PO SCH (08:34)
[2017-02-13] MEDS: MULTIVITAMINS/MINERALS THERAPEUTIC TAB PO SCH (08:34)
[2017-02-13] MEDS: BUDESONIDE-FORMOTEROL 160/4.5 MCG INHALER INH SCH (08:35)
[2017-02-13] MEDS: SODIUM CHLORIDE 0.9% FLUSH 10 ML FLUSH IV FLUSH SCH (08:35)
[2017-02-13 09:10] VITALS: O2SAT 98
[2017-02-13] MEDS: LEVOFLOXACIN 750 MG TAB PO SCH (11:49)
[2017-02-13 12:00] VITALS: BP 152/99; PULSE 85; RESP 18; TEMP 97; O2SAT 98
[2017-02-13] MEDS ORDERED: PRED20 PO (12:20)
[2017-02-13] MEDS ORDERED: LEVA750T9 PO (12:20)
[2017-02-13] MEDS ORDERED: METR-1 PO (12:20)
[2017-02-13] MEDS ORDERED: FOLI-31 PO (12:20)
[2017-02-13] MEDS ORDERED: DIAZ5 PO (12:20)
[2017-02-13] MEDS ORDERED: GNP100TA3 PO (12:20)
[2017-02-13] MEDS ORDERED: SYMB160A INH (12:20)
--- NOTE | 2017-02-13 12:21 | HHI.DS ---
Discharge Summary Admission Date Feb 09, 2017 at 21:05 Discharge Date: Feb 13, 2017 Admitting Diagnosis pneumonia, hypokalemia, hypocalcemia (1) Alcohol abuse ICD Code: F10.10 - Alcohol abuse, uncomplicated Status: Acute (2) PNA (pneumonia) ICD Code: J18.9 - Pneumonia, unspecified organism Status: Acute (3) COPD (chronic obstructive pulmonary disease) ICD Code: J44.9 - Chronic obstructive pulmonary disease, unspecified Status: Acute (4) Lactic acidosis ICD Code: E87.2 - Acidosis Status: Acute (5) Hypoxia ICD Code: R09.02 - Hypoxemia Status: Acute (6) Hypocalcemia ICD Code: E83.51 - Hypocalcemia Status: Acute (7) Hypokalemia ICD Code: E87.6 - Hypokalemia Status: Acute (8) Thrombocytopenia ICD Code: D69.6 - Thrombocytopenia, unspecified Status: Acute Procedures None. Brief History - From Admission This is a 56-year-old Homeless male with a PMH of Depression, Alcohol Abuse and Tobacco Abuse was brought to the ER by Police under [employer] Act. Per patient he drinks half a gallon of unknown alcohol daily. Today was found lying on a bench and unable to ambulate. Patient does report recent cough and generalized malaise. On arrival, BP 98/57, HR 101, O2 sat 95% on RA, Afebrile. While in ER , episode of hypoxia with O2 sat 86% on RA. Currently 98%. CBC at baseline. K + 2.9. Lactic Acid 4.8. Ca 7.3. Alcohol 297. CXR with early or mild pneumonia right upper lobe. S/p Blood Cultures, Rocephin/Zithro in ER. CBC/BMP: 02/12/17 0730 02/12/17 0730 Significant Findings Laboratory Tests Test 02/10/17 12:42 02/10/17 20:21 02/11/17 02:13 02/11/17 11:58 Urine Color DARK-BROWN (YELLW/STRAW) Urine Occult Blood MOD (NEG) Urine Urobilinogen 8.0 MG/DL (LESS THAN Urine Leukocyte Esterase TRACE (NEG) Urine RBC 27 /hpf (0-3) Urine WBC 7 /hpf (0-5) Urine Mucus FEW /lpf (OCC) Urine Benzodiazepines Screen POS (NEG) Urine Cannabinoids Screen POS (NEG) Lactic Acid Level 2.3 mmol/L (0.4-2.0) 2.1 mmol/L (0.4-2.0) 2.3 mmol/L (0.4-2.0) Blood Urea Nitrogen 6 MG/DL (7-18) Creatinine 0.51 MG/DL (0.60-1.30) Random Glucose 142 MG/DL (74-106) Calcium Level 7.9 MG/DL (8.5-10.1) Carbon Dioxide Level 32.2 MEQ/L (21.0-32.0) Test 02/12/17 07:30 Red Blood Count 3.70 MIL/MM3 (4.50-5.90) Hemoglobin 12.9 GM/DL (13.0-17.0) Mean Corpuscular Volume 106.2 FL (80.0-100.0) Mean Corpuscular Hemoglobin 35.0 PG (27.0-34.0) Platelet Count 97 TH/MM3 (150-450) Neutrophils (%) (Auto) 89.2 % (16.0-70.0) Lymphocytes (%) (Auto) 6.8 % (9.0-44.0) Lymphocytes # (Auto) 0.3 TH/MM3 (1.0-4.8) Platelet Estimate LOW (NORMAL) Platelet Morphology Comment ENLARGED (NORMAL) Creatinine 0.52 MG/DL (0.60-1.30) Random Glucose 192 MG/DL (74-106) Calcium Level 8.0 MG/DL (8.5-10.1) Sodium Level 135 MEQ/L (136-145) Lactic Acid Level 3.0 mmol/L (0.4-2.0) Imaging Last Impressions Chest X-Ray 02/12/17 0600 Signed Impressions: Service Date/Time: Sunday, February 12, 2017 05:48 - CONCLUSION: 1. Subsegmental basilar airspace disease most characteristic of atelectasis. Ruy Hussein MD PE at Discharge GENERAL: AOX3, NAD. SKIN: Warm and dry. HEAD: Normocephalic. EYES: No scleral icterus. No injection or drainage. NECK: Supple, trachea midline. No JVD or lymphadenopathy. CARDIOVASCULAR: Regular rate and rhythm without murmurs, gallops, or rubs. RESPIRATORY: Moderate air entry, scattered mild wheezing, no accessory muscle use. GASTROINTESTINAL: Abdomen soft, non-tender, nondistended. MUSCULOSKELETAL: No cyanosis, or edema. BACK: Nontender without obvious deformity. No CVA tenderness. Pt update on day of discharge Patient is doing well. No fever, chills. Wants to go home. Currently on room air. Hospital Course 56-year-old Homeless male with a PMH of Depression, Alcohol Abuse and Tobacco Abuse was brought to the ER by Police under [employer] Act. Alcohol Abuse: presented w/ Acute Alcohol Intoxication, arrived w/ Police under [employer] Act. Reports drinking "a gallon" of alcohol. Alcohol 297. High risk of withdrawal. CIWA, Seizure Precautions, MVT/Thiamine/Folate replacement. Started on Librium 10mg q6h. The patient will need to go to [facility] once medically stable. Community Acquired PNA: +cough/sputum; episode of hypoxia while in ER w/ O2 sat 86% on RA, currently 98%. - CXR images reviewed by me on 02/12/2017, shows pneumonia right upper lobe. - Will start incentive spirometry as well. CXR showed atelectasis. - Repeat CXR reviewed by me on 02/12/2017, shows blunting of the costophrenic angles. Suspicious for aspiration PNA as well. - Continue antibiotics with Levaquin. Will add Flagyl. DuoNeb q6h and prn. Acute COPD Exacerbation: +wheezing on exam - Symbicort bid, Mucinex bid. O2 as needed. - D/C Solu-medrol, start Prednisone 20mg BID and continue breathing tx. Lactic Acidosis: Lactate 4.8, likely combination of acute infection w/ alcohol intoxication. currently 2.3. Hypocalcemia: Ca 7.3, s/p IV Calcium gluconate replacement, repeat Ca 7.9. Continue calcium carbonate bid. Hypokalemia: K+ 2.9, s/p replacement, repeat K 3.8. Hypomagnesemia: Mag 1.5, s/p IV Mag Sulfate x2G, repeat Mag 1.9. Thrombocytopenia: Platelets 110, previously 155 on 10/21/16, no active bleeding , repeat plts stable. DVT Prophylaxis: SCD/Teds. Pt Condition on Discharge: Good Discharge Disposition: Discharge Home Discharge Time: > 30 minutes Discharge Instructions DIET: Follow Instructions for: As Tolerated, No Restrictions Activities you can perform: Regular-No Restrictions Follow up Referrals: PCP Follow-up - 1 Week New Medications: Folic Acid-B12-B6 (Foltabs) 0.8-115-10 Mg Tab 1 TAB PO DAILY for Nutritional Supplement, #30 TAB 0 Refills Budesonide-Formoterol Inh (Symbicort Inh) 160-4.5 Mcg/Act Aero 2 PUFF INH Q12HR for COPD for 30 Days, INHALER 3 Refills Diazepam (Valium) 5 Mg Tab 5 MG PO Q6HR PRN for WITHDRAWAL SYMPTOMS, #20 TAB Levofloxacin (Levaquin) 750 Mg Tablet 750 MG PO DAILY@1200 for Infection, #5 TAB Metronidazole (Flagyl) 500 Mg Tab 500 MG PO Q8HR for Infection, #15 TAB Prednisone (Prednisone) 20 Mg Tab 20 MG PO BID for COPD, #10 TAB Thiamine HCl (Gnp Vitamin B-1) 100 Mg Tab 100 MG PO DAILY for VITAMIN, #30 TAB Continued Medications: Hydrocodone-Acetaminophen (Lortab) 7.5-325 Mg Tab 1 TAB PO Q4H PRN for PAIN, TAB 0 Refills Discontinued Medications: Oxycodone ER (Oxycontin) 30 Mg Tab 40 MG PO TID for Pain Management, TAB 0 Refills Merna Millard DO Feb 13, 2017 12:21
[2017-02-15] MEDS ORDERED: THIAMINE HCL 100 MG TAB PO SCH (09:00)
== END 2017-02-13 14:35 | disposition home or self-care (01) | DRG 190 ==
LOC: NEPD 18:19 → NEDA 21:05 → NEPFCDU 23:27 → HOCB 02-11 18:51
PROVIDERS: ADMIT Hospitalist; ATTEND Hospitalist
DX: J44.0 Chronic obstructive pulmonary disease with (acute) lower respiratory infection (principal); J18.9 Pneumonia, unspecified organism; J96.21 Acute and chronic respiratory failure with hypoxia; E87.2 Acidosis; D69.6 Thrombocytopenia, unspecified; E83.42 Hypomagnesemia; J44.1 Chronic obstructive pulmonary disease with (acute) exacerbation; E83.51 Hypocalcemia; E87.6 Hypokalemia; Z59.0 Homelessness; F10.129 Alcohol abuse with intoxication, unspecified; Y90.8 Blood alcohol level of 240 mg/100 ml or more; F32.9 Major depressive disorder, single episode, unspecified; F17.200 Nicotine dependence, unspecified, uncomplicated
CPT/HCPCS: 71010; 80048; 80053; 80307; 81001; 82948; 83605; 83735; 85025; 87040; 87070; 87205; 94150; 94640; 94664; 94667; 96361; 96374; J0456; J0610; J0696; J1630; J1956; J2060; J2270; J2920; J3411; J3475; J7030; J7050; J7512

== ENCOUNTER 2017-02-23 06:11 | Inpatient (IN) | payer MEDICAID, OTHER ==
[~2017-02-23] VITALS: Ht 180.3 cm; Wt 53.2 kg
[~2017-02-23 06:11] MED LIST changes: +DIAZ5 PO; +FOLI-31 PO; +GNP100TA3 PO; +HYDR-3534 PO; -IBUP-232 PO; +LEVA750T9 PO; +METR-1 PO; +PRED20 PO; +SYMB160A INH
[2017-02-23 06:14] VITALS: BP 174/96; PULSE 122; RESP 20; TEMP 98.8; O2SAT 94
[2017-02-23] MEDS ORDERED: SODIUM CHLOR 0.9% 1000 ML INJ 1,000 ML IV ONE ×4 (06:19→19:15)
[2017-02-23] MEDS ORDERED: SODIUM CHLOR 0.9% 1000 ML INJ 800 ML IV ONE (06:19)
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
[2017-02-23] MEDS ORDERED: LORazepam 2 MG/ML VIAL IV PUSH ONE ×3 (06:30→09:45)
[2017-02-23] MEDS ORDERED: PIPERACIL-TAZO 3.375 GM PREMIX 50 ML IV ONE (06:30)
[2017-02-23] MEDS ORDERED: VANCOMYCIN INJ 1,000 MG in SODIUM CHLOR 0.9% 250 ML INJ 250 ML IV ONE (06:30)
--- NOTE | 2017-02-23 06:45 | RADRPT ---
EXAM DATE/TIME: 02/23/2017 06:32 [facility] COMPARISON: CHEST SINGLE AP, February 12, 2017, 5:48. INDICATIONS : Shortness of breath MEDICAL HISTORY : None. SURGICAL HISTORY : None. ENCOUNTER: Initial ACUITY: 1 day PAIN SCORE: Non-responsive. LOCATION: Bilateral chest FINDINGS: Examination quality is degraded by motion artifact. Underinflated AP view of the chest demonstrates a normal-sized cardiac silhouette. No pleural effusion, airspace consolidation, or pneumothorax is segun reciated. There is atelectasis at the lung bases. Bones and soft tissues demonstrate no acute finding . There is partially visualized right distal humerus hardware. CONCLUSION: Motion degraded examination. There is underinflation with atelectasis at the lung bases. Otherwise, n o acute finding is appreciated given the technique. Kilo Coulter MD on February 23, 2017 at 6:43 Board Certified Radiologist. This report was verified electronically.
[2017-02-23 06:49] LABS: AUTOMATED NEUTROPHIL # 9.1 TH/MM3 (1.8-7.7); BASOPHIL % 0.1 % (0.0-2.0); HEMATOCRIT 40.3 % (39.0-51.0); HEMO FLAGS DIFF FINAL; LYMPH % 5.4 % (9.0-44.0); LYMPHOCYTE # 0.5 TH/MM3 (1.0-4.8); MEAN CELL VOLUME 106.1 FL (80.0-100.0); MEAN CORPUSCULAR HEMOGLOBIN 36.4 PG (27.0-34.0); MEAN CORPUSCULAR HGB CONC 34.3 % (32.0-36.0); MONO % 3.6 % (0.0-8.0); NEUT % 90.9 % (16.0-70.0); PLATELET COUNT 158 TH/MM3 (150-450); RED CELL DISTRIBUTION WIDTH 14.2 % (11.6-17.2)
[2017-02-23 06:55] LABS: APTT (PATIENT) 29.6 SEC (24.3-30.1); PROTHROMBIN TIME - PATIENT 10.8 SEC (9.8-11.6)
[2017-02-23] MEDS ORDERED: DEXTROSE 50% IN WATER 50 ML VIAL(D50) IV PUSH ONE ×2 (07:00→09:30)
[2017-02-23] MEDS ORDERED: DEXTROSE 50% IN WATER 50 ML SYRINGE ONE (07:01)
[2017-02-23 07:06] LABS: ALT (GPT) 115 U/L (12-78); ANION GAP 8 MEQ/L (5-15); AST (GOT) 196 U/L (15-37); BICARBONATE 31.5 MEQ/L (21.0-32.0); BLOOD UREA NITROGEN 4 MG/DL (7-18); CHLORIDE 95 MEQ/L (98-107); GLOMERULAR FILTRATION RATE 194 ML/MIN (>89); POTASSIUM 3.8 MEQ/L (3.5-5.1); SODIUM (NA) 134 MEQ/L (136-145)
[2017-02-23 07:09] LABS: ALKALINE PHOSPHATASE 169 U/L (45-117); TOTAL BILIRUBIN ADULT 0.9 MG/DL (0.2-1.0)
--- NOTE | 2017-02-23 07:17 | PD ---
Physical Exam Date Seen by Provider: Feb 23, 2017 Narrative seen and reviewed labs, currently pending toxscreen and ct head...currently accucheck is 45 (given d50 amp) GENERAL: SKIN: Warm and dry. HEAD: Atraumatic. Normocephalic. EYES: Pupils equal and round. No scleral icterus. No injection or drainage. ENT: No nasal bleeding or discharge. Mucous membranes pink and moist. NECK: Trachea midline. No JVD. CARDIOVASCULAR: Regular rhythm but tachycardic 120's (decreasing from initial eval) RESPIRATORY: No accessory muscle use. Clear to auscultation. Breath sounds equal bilaterally. GASTROINTESTINAL: Abdomen soft, non-tender, nondistended. Hepatic and splenic margins not palpable. MUSCULOSKELETAL: Extremities without clubbing, cyanosis, or edema. No obvious deformities. rue contracture noted NEUROLOGICAL: Awake but confused, gcs 14/15. No obvious cranial nerve deficits. Motor grossly within normal limits. Five out of 5 muscle strength in the arms and legs. Normal speech. PSYCHIATRIC: Appropriate mood and affect; insight and judgment normal. Data Data Last Documented VS Vital Signs Date Time Temp Pulse Resp B/P (MAP) Pulse Ox O2 Delivery O2 Flow Rate FiO2 02/23/17 08:21 97 Room Air 02/23/17 06:14 98.8 122 20 174/96 (122) Orders Orders Complete Blood Count With Diff (02/23/17 06:19) Comprehensive Metabolic Panel (02/23/17 06:19) Prothrombin Time / Inr (Pt) (02/23/17 06:19) Act Partial Throm Time (Ptt) (02/23/17 06:19) Lactic Acid Sepsis Protocol (02/23/17 06:19) Urinalysis - C+S If Indicated (02/23/17 06:19) Blood Culture (02/23/17 06:19) Chest, Single Ap (02/23/17 06:19) Blood Glucose (02/23/17 06:19) Ecg Monitoring (02/23/17 06:19) Iv Access Insert/Monitor (02/23/17 06:19) Oximetry (02/23/17 06:19) Oxygen Administration (02/23/17 06:19) Sodium Chlor 0.9% 1000 Ml Inj (Ns 1000 M (02/23/17 06:19) Sodium Chlor 0.9% 1000 Ml Inj (Ns 1000 M (02/23/17 06:19) Lorazepam Inj (Ativan Inj) (02/23/17 06:30) Ct Brain W/O Iv Contrast(Rout) (02/23/17 ) Alcohol (Ethanol) (02/23/17 06:21) Vancomycin Inj (Vancomycin Inj) (02/23/17 06:30) Piperacil-Tazo 3.375 Gm Premix (Zosyn 3. (02/23/17 06:30) Sodium Chlor 0.9% 1000 Ml Inj (Ns 1000 M (02/23/17 06:30) Electrocardiogram (02/23/17 ) Dextrose 50% In Orin (Vial) Inj (D50w (Vi (02/23/17 07:00) Dextrose 50% In Orin (Syr) Inj (D50w (Syr (02/23/17 07:01) Lorazepam Inj (Ativan Inj) (02/23/17 07:15) Dextrose 50% In Orin (Vial) Inj (D50w (Vi (02/23/17 09:30) Lorazepam Inj (Ativan Inj) (02/23/17 09:45) Dextrose 50% In Orin (Syr) Inj (D50w (Syr (02/23/17 09:45) Admit Order (Ed Use Only) (02/23/17 09:41) Dextrose 10% Inj (D... W/Sodium Chloride (02/23/17 09:45) Labs Laboratory Tests Test 02/23/17 06:25 02/23/17 08:55 White Blood Count 10.0 TH/MM3 Red Blood Count 3.80 MIL/MM3 Hemoglobin 13.8 GM/DL Hematocrit 40.3 % Mean Corpuscular Volume 106.1 FL Mean Corpuscular Hemoglobin 36.4 PG Mean Corpuscular Hemoglobin Concent 34.3 % Red Cell Distribution Width 14.2 % Platelet Count 158 TH/MM3 Mean Platelet Volume 9.8 FL Neutrophils (%) (Auto) 90.9 % Lymphocytes (%) (Auto) 5.4 % Monocytes (%) (Auto) 3.6 % Eosinophils (%) (Auto) 0.0 % Basophils (%) (Auto) 0.1 % Neutrophils # (Auto) 9.1 TH/MM3 Lymphocytes # (Auto) 0.5 TH/MM3 Monocytes # (Auto) 0.4 TH/MM3 Eosinophils # (Auto) 0.0 TH/MM3 Basophils # (Auto) 0.0 TH/MM3 CBC Comment DIFF FINAL Differential Comment Prothrombin Time 10.8 SEC Prothromb Time International Ratio 1.0 RATIO Activated Partial Thromboplast Time 29.6 SEC Blood Urea Nitrogen 4 MG/DL Creatinine 0.45 MG/DL Random Glucose 105 MG/DL Total Protein 8.0 GM/DL Albumin 2.6 GM/DL Calcium Level 8.1 MG/DL Alkaline Phosphatase 169 U/L Aspartate Amino Transf (AST/SGOT) 196 U/L Alanine Aminotransferase (ALT/SGPT) 115 U/L Total Bilirubin 0.9 MG/DL Sodium Level 134 MEQ/L Potassium Level 3.8 MEQ/L Chloride Level 95 MEQ/L Carbon Dioxide Level 31.5 MEQ/L Anion Gap 8 MEQ/L Estimat Glomerular Filtration Rate 194 ML/MIN Lactic Acid Level 2.5 mmol/L B-Type Natriuretic Peptide 216 PG/ML Ethyl Alcohol Level LESS THAN 3 MG/DL Urine Color YELLOW Urine Turbidity HAZY Urine pH 7.0 Urine Specific [place] 1.008 Urine Protein NEG mg/dL Urine Glucose (UA) TRACE mg/dL Urine Ketones NEG mg/dL Urine Occult Blood MOD Urine Nitrite NEG Urine Bilirubin NEG Urine Urobilinogen LESS THAN 2.0 MG/DL Urine Leukocyte Esterase NEG Urine RBC 2 /hpf Urine WBC 1 /hpf Urine Squamous Epithelial Cells <1 /hpf Urine Bacteria MANY /hpf Microscopic Urinalysis Comment CATH-CULTURE IND Urine Opiates Screen NEG Urine Barbiturates Screen NEG Urine Amphetamines Screen NEG Urine Benzodiazepines Screen POS Urine Cocaine Screen POS Urine Cannabinoids Screen NEG [facility] Medical Record Reviewed: Yes Supervised Visit with YESSICA: No Narrative Course aggressive hydration, benzo iv dosing given improved hr down to 102 and sub 100. patient was also started on a dextrose drip to avoid further continued episodes of hypoglycemia. Critical Care Narrative CRITICAL CARE NOTE: With evaluation of the patient, labs, EKG, receipt of radiologic studies, administration of medications, reevaluation the patient and discussion of the patient with the admitting physicians, the total critical care time was [45] minutes. Time to perform other separately billable procedures was not included in the critical care time. Diagnosis Primary Impression: Alcohol withdrawal Qualified Codes: F10.231 - Alcohol dependence with withdrawal delirium Additional Impression: Hypoglycemia Admitting Information Admitting Physician Requests: Admit Yogesh Barnard MD Feb 23, 2017 07:17
--- NOTE | 2017-02-23 07:57 | RADRPT ---
EXAM DATE/TIME: 02/23/2017 07:38 [facility] COMPARISON: CT BRAIN W/O CONTRAST, March 02, 2015, 12:54. INDICATIONS : Altered mental status RADIATION DOSE: 33.54 CTDIvol (mGy) MEDICAL HISTORY : Cardiovascular disease. Hypertension. SURGICAL HISTORY : None. ENCOUNTER: Initial ACUITY: 1 day PAIN SCALE: Non-responsive LOCATION: cranial TECHNIQUE: Multiple contiguous axial images were obtained of the head. Using automated exposure control and adj ustment of the mA and/or kV according to patient size, radiation dose was kept as low as reasonably a chievable to obtain optimal diagnostic quality images. DICOM format image data is available electro nically for review and comparison. FINDINGS: The examination again demonstrates patchy hypodensity in the bilateral periventricular white matter a nd centrum semiovale, not significantly changed and characteristic of chronic microvascular ischemic disease. No signs of acute infarct, hemorrhage or mass. No fractures. CONCLUSION: No significant change has occurred. Maximus Pavon MD on February 23, 2017 at 7:55 Board Certified Radiologist. This report was verified electronically.
[2017-02-23 08:21] VITALS: O2SAT 97
[2017-02-23 08:41] LABS: LACTIC ACID GHOST NOT REPORTABLE
[2017-02-23] MEDS ORDERED: SODIUM CHLORIDE 23.4% INJ 77 MEQ in DEXTROSE 10% INJ 1,000 ML IV SCH (09:45)
[2017-02-23] MEDS ORDERED: DEXTROSE 50% IN WATER 50 ML SYRINGE IV ONE (09:45)
[2017-02-23 09:47] LABS: BACTERIA, URINE MANY /hpf; BLOOD, URINE MOD (NEG); GLUCOSE,URINE TRACE mg/dL (NEG); KETONE, URINE NEG (NEG); NITRITE,URINE NEG (NEG); SQUAMOUS EPITHELIAL CELL URINE <1 /hpf (0-5)
[2017-02-23 09:53] LABS: URINE COLOR YELLOW (YELLW/STRAW)
[2017-02-23 09:54] LABS: COMMENT (UR) CATH-CULTURE IND; CULTURE IF INDICATED CATH CULTURE IND
[2017-02-23] MEDS ORDERED: LORazepam 2 MG TAB PO PRN (10:00)
[2017-02-23] MEDS ORDERED: LORazepam 2 MG/ML VIAL IV PUSH PRN (10:00)
[2017-02-23] MEDS ORDERED: FLUMAZENIL 0.5 MG/5 ML VIAL IV PUSH PRN (10:00)
[2017-02-23] MEDS ORDERED: SODIUM CHLORIDE 0.9% FLUSH 10 ML FLUSH IV FLUSH PRN (10:00)
[2017-02-23] MEDS ORDERED: ONDANSETRON HCL 4 MG/2 ML VIAL IV PRN (10:00)
[2017-02-23] MEDS ORDERED: GLUCAGON 1 MG/ML VIAL OTHER PRN (10:15)
[2017-02-23] MEDS ORDERED: DEXT 5%-NACL 0.45% 1000 ML INJ 1,000 ML IV SCH (10:15)
[2017-02-23] MEDS ORDERED: DEXTROSE 50% IN WATER 50 ML VIAL(D50) IV PRN (10:15)
--- NOTE | 2017-02-23 11:05 | HHI.HP ---
HPI Service Family Medicine Primary Care Physician Unknown Admission Diagnosis AMS, SUSPECT DELIRIUM TREMENS Diagnoses: International Travel<30 Days: No Contact w/Intl Traveler<30days: No Known Affected Area: No History of Present Illness Patient unable to provide any history. Speech is incoherent. Informed by Dr. Barnard that he was [place] in by [place] Accu-Chek showed glucose in the 40s. They administered glucose and repeat was in the 170s. After administration and upon arrival to the ED, patient remained in an altered mental state. (Joanne Orosco MD R1) Review of Systems ROS Limitations: Clinical Condition, Altered Mental Status, Unresponsive (Joanne Orosco MD R1) Past Family Social History Past Medical History Unable to obtain due to patient's altered mental status Past Surgical History Unable to obtain due to patient's altered mental status Reported Medications Reported Meds & Active Scripts Active Foltabs (Folic Acid-B12-B6) 0.8-115-10 Mg Tab 1 Tab PO DAILY Gnp Vitamin B-1 (Thiamine HCl) 100 Mg Tab 100 Mg PO DAILY Prednisone 20 Mg Tab 20 Mg PO BID Symbicort Inh (Budesonide/Formoterol Fumarate) 160-4.5 Mcg/Act Aero 2 Puff INH Q12HR 30 Days Valium (Diazepam) 5 Mg Tab 5 Mg PO Q6HR PRN Flagyl (Metronidazole) 500 Mg Tab 500 Mg PO Q8HR Levaquin (Levofloxacin) 750 Mg Tablet 750 Mg PO DAILY@1200 Reported Lortab (Hydrocodone-Acetaminophen) 7.5-325 Mg Tab 1 Tab PO Q4H PRN (Joanne Orosco MD R1) Allergies: Coded Allergies: No Known Allergies (Verified , 02/09/17) Active Ordered Medications Current Medications Medications (Trade) Dose Ordered Sig/Veronika Route Start Time Stop Time Status Last Admin Sodium Chloride 77 meq/Dextrose 1,019.25 ml @ 5 mls/hr Q24H IV 02/23/17 09:45 (NS Flush) 2 ml UNSCH PRN IV FLUSH 02/23/17 10:00 UNV (NS Flush) 2 ml BID IV FLUSH 02/23/17 21:00 UNV Multivitamins 10 ml/Folic Acid 1 mg/Sodium Chloride 510.2 ml @ 125 mls/hr Q24H IV 02/23/17 10:00 02/28/17 09:59 UNV Thiamine HCl 100 mg/Sodium Chloride 101 ml @ 100 mls/hr Q24H IV 02/23/17 10:00 02/26/17 09:59 UNV (Zofran Inj) 4 mg Q6H PRN IV 02/23/17 10:00 UNV (Catapres) 0.1 mg Q6H PRN PO 02/23/17 10:00 UNV (Romazicon Inj) 0.2 mg Q1M PRN IV PUSH 02/23/17 10:00 UNV (Ativan) 1 mg Q4H PRN PO 02/23/17 10:00 UNV (Ativan Inj) 1 mg Q4H PRN IV PUSH 02/23/17 10:00 UNV (Ativan) 2 mg Q2H PRN PO 02/23/17 10:00 UNV (Ativan Inj) 2 mg Q2H PRN IV PUSH 02/23/17 10:00 UNV (Ativan Inj) 2 mg Q1H PRN IV PUSH 02/23/17 10:00 UNV (Ativan Inj) 2 mg Q15M PRN IV PUSH 02/23/17 10:00 UNV (Heparin Inj) 5,000 units Q12H SQ 02/23/17 10:00 UNV Dextrose/Sodium Chloride 1,000 ml @ 125 mls/hr Q8H IV 02/23/17 10:15 UNV (D50w (Vial) Inj) 50 ml UNSCH PRN IV 02/23/17 10:15 UNV (Glucagon Inj) 1 mg UNSCH PRN OTHER 02/23/17 10:15 UNV (Duoneb Neb) 1 ampule Q4HR NEB NEB 02/23/17 12:00 UNV Family History Unable to obtain due to patient's altered mental status Social History Unable to obtain due to patient's altered mental status (Joanne Orosco MD R1) Physical Exam Vital Signs Vital Signs Date Time Temp Pulse Resp B/P (MAP) Pulse Ox O2 Delivery O2 Flow Rate FiO2 02/23/17 08:21 97 Room Air 02/23/17 06:15 Room Air 02/23/17 06:14 98.8 122 20 174/96 (122) 94 Physical Exam GENERAL: This is a well-nourished, well-developed patient, laying on the bed, wet with urine, writhing around in no apparent distress. SKIN: No rashes or lesions. Cool and dry. Ecchymoses on bilateral arms HEAD: Atraumatic. Normocephalic. EYES: Pupils equal round and reactive. Extraocular motions intact. No scleral icterus. No injection or drainage. ENT: Nose without bleeding, purulent drainage or septal hematoma. Unable to visualize throat because of patient's inability to cooperate with examination NECK: Trachea midline. No JVD or lymphadenopathy. Supple, nontender, no meningeal signs. CARDIOVASCULAR: Regular rate and rhythm without murmurs, gallops, or rubs. RESPIRATORY: Coarse breath sounds bilaterally auscultated anteriorly. Breath sounds equal bilaterally. GASTROINTESTINAL: Abdomen soft, non-tender, nondistended. No hepato-splenomegaly , or palpable masses. No guarding. MUSCULOSKELETAL: Extremities without clubbing, cyanosis, 2+ pitting edema in bilateral lower extremities to mid calf. No joint tenderness, effusion, or edema noted. No calf tenderness. Negative Homans sign bilaterally. NEUROLOGICAL: Awake and alert. Motor and sensory grossly within normal limits. Incoherent speech. Laboratory Laboratory Tests Test 02/23/17 06:25 02/23/17 08:55 White Blood Count 10.0 Red Blood Count 3.80 Hemoglobin 13.8 Hematocrit 40.3 Mean Corpuscular Volume 106.1 Mean Corpuscular Hemoglobin 36.4 Mean Corpuscular Hemoglobin Concent 34.3 Red Cell Distribution Width 14.2 Platelet Count 158 Mean Platelet Volume 9.8 Neutrophils (%) (Auto) 90.9 Lymphocytes (%) (Auto) 5.4 Monocytes (%) (Auto) 3.6 Eosinophils (%) (Auto) 0.0 Basophils (%) (Auto) 0.1 Neutrophils # (Auto) 9.1 Lymphocytes # (Auto) 0.5 Monocytes # (Auto) 0.4 Eosinophils # (Auto) 0.0 Basophils # (Auto) 0.0 CBC Comment DIFF FINAL Differential Comment Prothrombin Time 10.8 Prothromb Time International Ratio 1.0 Activated Partial Thromboplast Time 29.6 Blood Urea Nitrogen 4 Creatinine 0.45 Random Glucose 105 Total Protein 8.0 Albumin 2.6 Calcium Level 8.1 Alkaline Phosphatase 169 Aspartate Amino Transf (AST/SGOT) 196 Alanine Aminotransferase (ALT/SGPT) 115 Total Bilirubin 0.9 Sodium Level 134 Potassium Level 3.8 Chloride Level 95 Carbon Dioxide Level 31.5 Anion Gap 8 Estimat Glomerular Filtration Rate 194 Lactic Acid Level 2.5 Ethyl Alcohol Level LESS THAN 3 Urine Color YELLOW Urine Turbidity HAZY Urine pH 7.0 Urine Specific [place] 1.008 Urine Protein NEG Urine Glucose (UA) TRACE Urine Ketones NEG Urine Occult Blood MOD Urine Nitrite NEG Urine Bilirubin NEG Urine Urobilinogen LESS THAN 2.0 Urine Leukocyte Esterase NEG Urine RBC 2 Urine WBC 1 Urine Squamous Epithelial Cells <1 Urine Bacteria MANY Microscopic Urinalysis Comment CATH-CULTURE IND Date/Time Source Procedure Growth Status 02/23/17 06:40 Blood Peripheral Aerobic Blood Culture Pending Received 02/23/17 06:40 Blood Peripheral Anaerobic Blood Culture Pending Received 02/23/17 08:55 Urine Catheterized Urine Urine Culture Pending Received (Joanne Orosco MD R1) Result Diagram: 02/23/1725 02/23/1725 Imaging Last Impressions Chest X-Ray 02/23/1719 Signed Impressions: Service Date/Time: Thursday, February 23, 2017 06:32 - CONCLUSION: Motion degraded examination. There is underinflation with atelectasis at the lung bases. Otherwise, no acute finding is appreciated given the technique. Kilo Coulter MD Head CT 02/23/17 0000 Signed Impressions: Service Date/Time: Thursday, February 23, 2017 07:38 - CONCLUSION: No significant change has occurred. Maximus Pavon MD (Joanne Orosco MD R1) Caprini VTE Risk Assessment Caprini VTE Risk Assessment: Mod/High Risk (score >= 2) Caprini Risk Assessment Model Point Value = 1 Point Value = 2 Point Value = 3 Point Value = 5 Age 41-60 Minor surgery BMI > 25 kg/m2 Swollen legs Varicose veins or History of unexplained or recurrent spontaneous Oral contraceptives or hormone replacement Sepsis (< 1 month) Serious lung disease, including pneumonia (< 1 month) Abnormal pulmonary function Acute myocardial infarction Congestive heart failure (< 1 month) History of inflammatory bowel disease Medical patient at bed rest Age 61-74 Arthroscopic surgery Major open surgery (> 45 min) Laparoscopic surgery (> 45 min) Malignancy Confined to bed (> 72 hours) Immobilizing plaster cast Central venous access Age >= 75 History of VTE Family history of VTE Factor V Leiden Prothrombin [id number] Lupus anticoagulant Anticardiolipin antibodies Elevated serum homocysteine Heparin-induced thrombocytopenia Other congenital or acquired thrombophilia Stroke (< 1 month) Elective arthroplasty Hip, pelvis, or leg fracture Acute spinal cord injury (< 1 month) Prophylaxis Regimen Total Risk Factor Score Risk Level Prophylaxis Regimen 0-1 Low Early ambulation 2 Moderate Order ONE of the following: *Sequential Compression Device (SCD) *Heparin 5000 units SQ BID 3-4 Higher Order ONE of the following medications: *Heparin 5000 units SQ TID *Enoxaparin/Lovenox 40 mg SQ daily (WT < 150 kg, CrCl > 30 mL/min) *Enoxaparin/Lovenox 30 mg SQ daily (WT < 150 kg, CrCl > 10-29 mL/min) *Enoxaparin/Lovenox 30 mg SQ BID (WT < 150 kg, CrCl > 30 mL/min) AND/OR *Sequential Compression Device (SCD) 5 or more Highest Order ONE of the following medications: *Heparin 5000 units SQ TID (Preferred with Epidurals) *Enoxaparin/Lovenox 40 mg SQ daily (WT < 150 kg, CrCl > 30 mL/min) *Enoxaparin/Lovenox 30 mg SQ daily (WT < 150 kg, CrCl > 10-29 mL/min) *Enoxaparin/Lovenox 30 mg SQ BID (WT < 150 kg, CrCl > 30 mL/min) AND *Sequential Compression Device (SCD) (Joanne Orosco MD R1) Assessment and Plan Assessment and Plan Mr. Cuevas is a 57-year-old white male with past medical history of alcohol withdrawal presenting to the ED with hypoglycemia and altered mental status. He is being admitted for alcohol withdrawal. Code Status Full code Discussed Condition With Dr. Machado and Dr. Borden (Joanne Orosco MD R1) Attending Attestation The patient has been seen and examined. The chart and all resident notes have been reviewed. I agree that inpatient care is appropriate and that a two midnight stay is expected for the reasons documented in the resident history and physical. I have discussed this with the resident and certify the resident s order for inpatient admission. (Kamala Borden MD) Problem List: (1) Hypoglycemia ICD Codes: E16.2 - Hypoglycemia, unspecified Status: Resolved Plan: [place] with blood glucose in the 40s. Glucose was then administered which increased it to 170s; however, hypoglycemia persisted in the ED. - IVF of D5 1/2 NS at 125 ml/hr - Regular Accuchecks (2) Alcohol withdrawal ICD Codes: F10.239 - Alcohol dependence with withdrawal, unspecified Status: Acute Plan: Patient has a history of multiple admissions to the ED from alcohol intoxication and withdrawal. Labs show macrocytosis on CBC, AST greater than ALT on hepatic function panel. - CIWA protocol - Alcohol withdrawal assessments every 4 hours - Ativan as needed - Rally pack - Nothing by mouth - EEG ordered (3) Cellulitis ICD Codes: L03.90 - Cellulitis, unspecified Status: Acute Plan: Possible cellulitis noted on physical exam - Started Zosyn IV every 6 hours - Vancomycin IV every 12 hrs * Pharmacy consult for dosing * Vanc trough to be drawn in the morning - Blood cultures drawn (4) Lactic acidosis ICD Codes: E87.2 - Acidosis Status: Acute Plan: Lactic acid elevated at 2.5 upon presentation to the ED. Has now trended to normal. -Placed patient on lactic acidosis protocol (5) FEN Status: Acute Plan: Fluids: IVF of D5 1/2 NS at 125 ml/hr Electrolytes: Monitor and replete as needed Nutrition: Nothing by mouth VTE prophylaxis: Heparin 5000 units every 12 hours (Joanne Orosco MD R1) Physician Certification 2 Midnight Certification Type: Admission for Inpatient Services Order for Inpatient Services The services are ordered in accordance with Medicare regulations or non- Medicare payer requirements, as applicable. In the case of services not specified as inpatient-only, they are appropriately provided as inpatient services in accordance with the 2-midnight benchmark. Estimated LOS (days): 3 days is the estimated time the patient will need to remain in the hospital, assuming treatment plan goals are met and no additional complications. Post-Hospital Plan: Home (Joanne Orosco MD R1) Problem Qualifiers (1) Cellulitis: Qualified Codes: L03.119 - Cellulitis of unspecified part of limb Joanne Orosco MD R1 Feb 23, 2017 11:05 Kamala Borden MD Feb 26, 2017 16:16
[2017-02-23] MEDS: RESP: ALBUTEROL 2.5 MG/IPRATROPIUM 0.5 MG NEB (SCH) NEB ×2 (12:29→19:58)
[2017-02-23 13:16] LABS: MAGNESIUM 1.5 MG/DL (1.5-2.5)
[2017-02-23] MEDS: HEPARIN SODIUM - SQ 10,000 UNITS/ML VIAL SQ SCH ×2 (13:52→23:08)
[2017-02-23] MEDS: THIAMINE INJ 100 MG in SODIUM CHLORIDE 0.9% INJ 100 ML IV SCH (13:53)
[2017-02-23] MEDS: MULTIVITAMIN INJ 10 ML, FOLIC ACID INJ 1 MG in SODIUM CHLORID 0.9% 500 ML INJ 500 ML IV SCH (13:53)
[2017-02-23] MEDS: LORazepam 2 MG/ML VIAL IV PUSH PRN ×4 (14:01→23:15)
[2017-02-23] MEDS ORDERED: Vancomycin Consult Pharmacy 1 EA OTHER SCH (15:00)
--- NOTE | 2017-02-23 16:31 | HHI.FPPN ---
Subjective Subjective Patient seen and examined. Case reviewed and discussed Please refer to resident H&P for further details regarding HPI, ROS, PMH, SurgHx , FH and SocHx In summary, patient is a 57-year-old disheveled male who is brought into the emergency room after being brought in by EMS and found to have hypoglycemia at 40. He has a known history of severe alcohol dependence and frequent ER visits. Per the record, he is homeless with a PMH of depression, Hepatitis C, alcohol and tobacco dependence, and drinks half a gallon of unknown alcohol daily. At the time of my encounter, the patient is lying in the emergency room on his hospital bed, awake but minimally responsive. He is able to follow some commands. Nursing reports intermittent agitation with CIWA scores around 11, requiring Ativan and q2h rechecks. [facility] Objective Objective Last Impressions Chest X-Ray 02/23/17 0619 Signed Impressions: Service Date/Time: Thursday, February 23, 2017 06:32 - CONCLUSION: Motion degraded examination. There is underinflation with atelectasis at the lung bases. Otherwise, no acute finding is appreciated given the technique. Kilo Coulter MD Head CT 02/23/17 0000 Signed Impressions: Service Date/Time: Thursday, February 23, 2017 07:38 - CONCLUSION: No significant change has occurred. Maximus Pavon MD Laboratory Tests - Abnormals Test 02/23/17 06:25 02/23/17 08:55 02/23/17 12:45 02/23/17 12:46 Red Blood Count 3.80 MIL/MM3 Mean Corpuscular Volume 106.1 FL Mean Corpuscular Hemoglobin 36.4 PG Neutrophils (%) (Auto) 90.9 % Lymphocytes (%) (Auto) 5.4 % Neutrophils # (Auto) 9.1 TH/MM3 Lymphocytes # (Auto) 0.5 TH/MM3 Blood Urea Nitrogen 4 MG/DL Creatinine 0.45 MG/DL Albumin 2.6 GM/DL Calcium Level 8.1 MG/DL Alkaline Phosphatase 169 U/L Aspartate Amino Transf (AST/SGOT) 196 U/L Alanine Aminotransferase (ALT/SGPT) 115 U/L Sodium Level 134 MEQ/L Chloride Level 95 MEQ/L Lactic Acid Level 2.5 mmol/L B-Type Natriuretic Peptide 216 PG/ML Urine Turbidity HAZY Urine Occult Blood MOD Urine Bacteria MANY /hpf Urine Benzodiazepines Screen POS Troponin I LESS THAN 0.02 NG/ML Test 02/23/17 14:45 Vital Signs 02/23/17 02/23/17 02/23/17 06:14 06:15 08:21 Temp 98.8 Pulse 122 Resp 20 B/P (MAP) 174/96 (122) Pulse Ox 94 97 O2 Delivery Room Air Room Air INTAKE & OUTPUT 02/24/17 07:00 Intake Total 3205 ml Balance 3205 ml Physical exam GENERAL: Disheveled male, lying in bed minimally responsive SKIN: Warm and dry. Bilateral upper extremities with mild edema and erythema and multiple abrasions with evidence of cellulitic changes HEAD: Normocephalic. Atraumatic EYES: No scleral icterus. + injection, no drainage. Pupils sluggishly reactive ENT: Poor oral hygiene, MM dry NECK: Supple, trachea midline. CARDIOVASCULAR: Tachycardic to the 120s without audible murmurs, gallops, or rubs. RESPIRATORY: Breath sounds coarse bilaterally. No accessory muscle use. GASTROINTESTINAL: Abdomen soft, non-tender, nondistended. Normal active bowel sounds. MUSCULOSKELETAL: No cyanosis, or edema. Upper extremities stiff with mild posturing NEURO: Sleepy, minimally responsive, intermittently agitated. Follow some commands, moves all extremities. Does not answer questions clearly. Assessment Assessment 57-year-old male admitted with: Altered mental status, suspect acute alcohol withdrawal Lactic acidosis Tachycardia Uncontrolled Hypertension Transaminitis Alcohol dependency Tobacco use Depression Hepatitis C PLAN PLAN IV fluid resuscitation CIWA protocol Thiamine Accu-Cheks EEG Control blood pressure, likely with Ativan Admit to ICU Neurochecks ABG Drug screen Trend CMP UA, blood cultures, chest x-ray Empiric antibiotics for cellulitis upper extremity If CIWA continues to trend up, will have low threshold for reimbursement auditor consult AMS work-up with ammonia, TSH, RPR Patient seen and examined. Case reviewed and discussed. Agree with plan of care as discussed with me and documented in the resident note. Kamala Borden MD Feb 23, 2017 16:31
[2017-02-23 16:36] LABS: BLOOD GAS BASE EXCESS 4.6 mmol/L (-2-2); BLOOD GAS CARBOXYHEMOGLOBIN 2.1 % (0-4); BLOOD GAS HCO3 29 mmol/L (22-26); BLOOD GAS METHEMOGLOBIN 0.6 % (0-2); BLOOD GAS O2 HGB SATURATION 89 % (90-100); BLOOD GAS OXYGEN CONTENT 15.8 Vol % (12.0-20.0); BLOOD GAS PCO2 42 mmHg (38-42); BLOOD GAS PO2 60 mmHG (61-120); BLOOD GAS TOTAL HGB 12.7 G/DL (12.0-16.0); TEMP CORR TO 98.6
[2017-02-23 16:37] LABS: CRITICAL VALUE YES; DRAW SITE LT RADIAL; FIO2 21 %; NUMBER OF ARTERIAL PUNCTURES 1; STAT YES; ULNAR PULSE PRESENT
[2017-02-23 16:38] VITALS: BP 119/82; PULSE 98; RESP 18; O2SAT 65; O2SAT 98
[2017-02-23 17:25] VITALS: BP 166/106; PULSE 121; RESP 20; TEMP 97.3; O2SAT 97
[2017-02-23] MEDS ORDERED: VANCOMYCIN INJ 1,000 MG in SODIUM CHLOR 0.9% 250 ML INJ 250 ML IV SCH (18:00)
[2017-02-23 19:15] VITALS: BP 150/99; PULSE 122; RESP 18; TEMP 98.1; O2SAT 97
[2017-02-23 20:04] VITALS: O2SAT 98
--- NOTE | 2017-02-23 20:22 | EKG ---
Date Performed: 02/23/2017 Time Performed: 07:57:13 PTAGE: 57 years EKG: Sinus rhythm WITH FREQUENT VENTRICULAR PREMATURE COMPLEXES NON-SPECIFIC ST/T WAVE CHANGES ABNORMAL RHYTHM ECG WAR EDER: DATA QUALITY MAY AFFECT INTERPRETATION PREVIOUS TRACING : 10/21/2016 14.07 Compared to the previous tracing, PVC now noted DOCTOR: Jaziel Mercado Interpretating Date/Time 02/23/2017 20:20:44
[2017-02-23] MEDS: SODIUM CHLORIDE 0.9% FLUSH 10 ML FLUSH IV FLUSH SCH (21:00)
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
[2017-02-23] MEDS: DEXT 5%-NACL 0.45% 1000 ML INJ 1,000 ML IV SCH (23:30)
[2017-02-24] VITALS (16 sets, daily range): BP systolic 90–158; BP diastolic 55–112; PULSE 81–122; RESP 16–18; TEMP 95.6–97.9; O2SAT 90–100
[2017-02-24] MEDS: PIPERACIL-TAZO 3.375 GM PREMIX 50 ML IV SCH ×3 (00:04→11:10)
[2017-02-24] MEDS: LORazepam 2 MG/ML VIAL IV PUSH PRN ×9 (01:45→20:40)
[2017-02-24] MEDS: RESP: ALBUTEROL 2.5 MG/IPRATROPIUM 0.5 MG NEB (SCH) NEB ×5 (04:59→19:29)
[2017-02-24] MEDS: VANCOMYCIN INJ 1,750 MG in SODIUM CHLORID 0.9% 500 ML INJ 500 ML IV SCH ×2 (05:19→16:12)
[2017-02-24 06:42] LABS: PROTHROMBIN TIME - PATIENT 11.1 SEC (9.8-11.6)
[2017-02-24 06:50] LABS: AUTOMATED NEUTROPHIL # 5.2 TH/MM3 (1.8-7.7); BASOPHIL % 0.4 % (0.0-2.0); EOSINOPHIL # 0.1 TH/MM3 (0-0.4); EOSINOPHIL % 0.9 % (0.0-4.0); HEMATOCRIT 43.8 % (39.0-51.0); HEMO FLAGS DIFF FINAL; LYMPH % 23.6 % (9.0-44.0); LYMPHOCYTE # 1.8 TH/MM3 (1.0-4.8); MEAN CELL VOLUME 106.4 FL (80.0-100.0); MEAN CORPUSCULAR HEMOGLOBIN 35.6 PG (27.0-34.0); MEAN CORPUSCULAR HGB CONC 33.5 % (32.0-36.0); MONO % 7.6 % (0.0-8.0); NEUT % 67.5 % (16.0-70.0); PLATELET COUNT 143 TH/MM3 (150-450); RED BLOOD COUNT 4.12 MIL/MM3 (4.50-5.90); RED CELL DISTRIBUTION WIDTH 14.6 % (11.6-17.2); WHITE BLOOD COUNT 7.7 TH/MM3 (4.0-11.0)
[2017-02-24 07:09] LABS: ANION GAP 6 MEQ/L (5-15); AST (GOT) 155 U/L (15-37); BICARBONATE 33.8 MEQ/L (21.0-32.0); BLOOD UREA NITROGEN 2 MG/DL (7-18); CHLORIDE 97 MEQ/L (98-107); GLOMERULAR FILTRATION RATE 223 ML/MIN (>89); POTASSIUM 3.4 MEQ/L (3.5-5.1); SODIUM (NA) 137 MEQ/L (136-145)
[2017-02-24 07:13] LABS: ALKALINE PHOSPHATASE 163 U/L (45-117); ALT (GPT) 99 U/L (12-78); TOTAL BILIRUBIN ADULT 1.6 MG/DL (0.2-1.0)
[2017-02-24] MEDS ORDERED: CALCIUM GLUCONATE INJ 1 GM in SODIUM CHLORIDE 0.9% INJ 100 ML IV ONE (08:15)
[2017-02-24] MEDS: DEXT 5%-NACL 0.45% 1000 ML INJ 1,000 ML IV SCH ×2 (08:30→12:00)
[2017-02-24] MEDS: SODIUM CHLORIDE 0.9% FLUSH 10 ML FLUSH IV FLUSH SCH ×2 (08:30→20:40)
[2017-02-24 08:32] LABS: BETA-HYDROXYBUTYRATE 0.18 MMOL/L (0.00-0.39)
[2017-02-24 08:59] LABS: BLOOD GAS CARBOXYHEMOGLOBIN 1.9 % (0-4); BLOOD GAS HCO3 30 mmol/L (22-26); BLOOD GAS METHEMOGLOBIN 0.6 % (0-2); BLOOD GAS O2 HGB SATURATION 91 % (90-100); BLOOD GAS OXYGEN CONTENT 18.5 Vol % (12.0-20.0); BLOOD GAS PCO2 43 mmHg (38-42); BLOOD GAS PO2 66 mmHg (61-120); BLOOD GAS TOTAL HGB 14.5 G/DL (12.0-16.0); TEMP CORR TO 98.6
[2017-02-24 09:00] LABS: CRITICAL VALUE NO; DRAW SITE RT RADIAL; LITER FLOW 3 L/M; NUMBER OF ARTERIAL PUNCTURES 2; OXYGEN DEVICE NASAL CANNULA; STAT YES; ULNAR PULSE PRESENT
[2017-02-24] MEDS: THIAMINE INJ 100 MG in SODIUM CHLORIDE 0.9% INJ 100 ML IV SCH (10:15)
[2017-02-24] MEDS: HEPARIN SODIUM - SQ 10,000 UNITS/ML VIAL SQ SCH ×2 (10:15→21:10)
[2017-02-24] MEDS: MULTIVITAMIN INJ 10 ML, FOLIC ACID INJ 1 MG in SODIUM CHLORID 0.9% 500 ML INJ 500 ML IV SCH (11:57)
--- NOTE | 2017-02-24 13:42 | HHI.FPPN ---
Subjective Remarks No acute events overnight. Patient is sedated currently, likely from Ativan doses per CIWA protocol. He will say yes or no to simple questions but is not following commands. He is not verbalizing more than that. He falls back asleep easily. He has some diaphoresis. He has no nausea or vomiting. No obvious tremors. Unable to assess for delirium or hallucinations. No seizures reported. CIWA scores have been (from recent to old) 11, 14, 14, 13, 13, 15, 11. He has received nine 2mg doses of IV lorazepam since admission. He is currently on 4L O2 via nasal cannula. (Anderson Marte MD R3) Objective Vitals Vital Signs Date Time Temp Pulse Resp B/P (MAP) Pulse Ox O2 Delivery O2 Flow Rate FiO2 02/24/17 11:53 95.6 103 16 152/99 (116) 94 02/24/17 09:25 95 Nasal Cannula 4.00 02/24/17 09:11 83 02/24/17 09:11 94 Nasal Cannula 3.00 02/24/17 08:00 95.6 122 17 148/100 (116) 96 02/24/17 04:00 97.1 108 16 156/105 (122) 97 02/24/17 00:00 97.9 87 16 138/95 (109) 97 02/23/17 20:04 98 Nasal Cannula 3.00 02/23/17 19:15 98.1 122 18 150/99 (116) 97 02/23/17 17:25 97.3 121 20 166/106 (126) 97 02/23/17 17:01 02/23/17 16:41 99 Nasal Cannula 3.00 02/23/17 16:38 98 18 119/82 (94) 98 Room Air I/O 02/23/17 02/23/17 02/23/17 02/24/17 02/24/17 02/24/17 07:00 15:00 23:00 07:00 15:00 23:00 Intake Total 3205 ml 0 ml 0 ml 250 ml Output Total 2850 ml 2450 ml Balance 3205 ml -2850 ml -2450 ml 250 ml Intake Oral 0 ml 0 ml IV Total 3205 ml 250 ml Output Urine Total 2850 ml 2450 ml (Anderson Marte MD R3) Result Diagram: 02/24/17 0553 02/24/17 0553 Imaging Last 72 hours Impressions Chest X-Ray 02/23/17 0619 Signed Impressions: Service Date/Time: Thursday, February 23, 2017 06:32 - CONCLUSION: Motion degraded examination. There is underinflation with atelectasis at the lung bases. Otherwise, no acute finding is appreciated given the technique. Kilo Coulter MD Head CT 02/23/17 0000 Signed Impressions: Service Date/Time: Thursday, February 23, 2017 07:38 - CONCLUSION: No significant change has occurred. Maximus Pavon MD Objective Remarks GENERAL: Disheveled male, lying in bed, sleeping, will open eyes a little, answers yes or no to simple questions, not following commands, falls back asleep easily SKIN: Bilateral upper extremities with mild edema and erythema and multiple abrasions with evidence of cellulitic changes, appears better today compared to admission, less edema on the right arm, no purulence or abscesses HEAD: Normocephalic. Atraumatic. Some beads of sweat on forehead. ENT: some frothy saliva at mouth, no nasal discharge CARDIOVASCULAR: Tachycardic to the 120s without audible murmurs, gallops, or rubs. RESPIRATORY: Breath sounds coarse bilaterally, listened to anteriorly GASTROINTESTINAL: Abdomen soft, non-tender, nondistended. Hyperactive bowel sounds MUSCULOSKELETAL: No cyanosis, or edema. NEURO: Sleepy, answers yes or no questions. Not following commands very well. Does not answer questions clearly. (Anderson Marte MD R3) A/P Assessment and Plan 57-year-old white male with past medical history of alcohol withdrawal presenting to the ED with hypoglycemia, alcohol withdrawal, and altered mental status. Discharge Planning Pending resolution of alcohol withdrawal and completed workup for altered mental status. (Anderson Marte MD R3) Attending Attestation Patient seen and examined. Case reviewed and discussed Agree with plan of care as discussed with me and documented in the resident note. (Kamala Borden MD) Problem List: (1) Alcohol withdrawal ICD Codes: F10.239 - Alcohol dependence with withdrawal, unspecified Status: Acute Plan: Patient has a history of multiple admissions to the ED from alcohol intoxication and withdrawal. CIWA scores (from recent to old) 11, 14, 14, 13, 13 , 15, 11. Required nine 2mg doses of IV lorazepam. Currently sedated but calm, beads of sweat on forehead, not acutely agitated. Unable to assess for hallucinations. - [facility] protocol - Ativan as needed per protocol - Rally pack, switch to oral when tolerated - Nothing by mouth until more alert and evaluated by speech therapy - Seizure precautions - ICU and precedex/intubation if progressing to more severe withdrawals. (2) Altered mental status ICD Codes: R41.82 - Altered mental status, unspecified Status: Acute Plan: Likely related to alcohol intoxication, also possible alcohol withdrawal seizure and electrolyte disturbances. Also with acute hypoglycemia, was found down on the beach. CK normal. Head CT normal. EEG showing possible mild encephalopathic process. Has respiratory alkalosis, possibly as rebound compensation for metabolic acidosis from lactic acid and/or ketoacid accumulation. Beta hydroxybutyrate normal. Chest x-ray shows no acute process. Drug screen with benzodiazepines and cocaine. Ammonia normal. - Blood cultures pending. - RPR pending (3) Dyspnea ICD Codes: R06.00 - Dyspnea, unspecified Status: Acute Plan: Increasing oxygen needs this morning. Now on 3L nasal cannula. ABG showing high-normal pH, CO2 slightly elevated, bicarb elevated. He has some increased work on breathing on examination. Possible developing aspiration pneumonia versus compensation for metabolic acidosis versus respiratory depression from Ativan. RR is normal. - Continuous pulse ox - Titrate O2 therapy - Monitor for respiratory depression - Check PA/Lateral chest x-ray when more alert (4) Cellulitis ICD Codes: L03.90 - Cellulitis, unspecified Status: Acute Plan: Possible cellulitis noted on physical exam, non-purulent. - Started Zosyn IV every 6 hours, received 02/23/17, d/c'ed on 02/24/17 - Vancomycin IV every 12 hrs * Pharmacy consult for dosing * Vanc trough to be drawn in the morning * Narrow when appropriate - Blood cultures pending, negative to date (5) Hypoglycemia ICD Codes: E16.2 - Hypoglycemia, unspecified Status: Resolved Plan: [place] with blood glucose in the 40s. Now euglycemic with D5 half normal saline. - IVF of D5 1/2 NS at 125 ml/hr - Regular AccuChecks (6) FEN Status: Acute Plan: Fluids: IVF of D5 1/2 NS at 125 ml/hr Electrolytes: Monitor and replace as needed, has mild hypokalemia Nutrition: Nothing by mouth VTE prophylaxis: Heparin 5000 units every 12 hours (Anderson Marte MD R3) Problem Qualifiers (1) Dyspnea: Qualified Codes: R06.02 - Shortness of breath (2) Cellulitis: Qualified Codes: L03.119 - Cellulitis of unspecified part of limb Anderson Marte MD R3 Feb 24, 2017 13:42 Kamala Borden MD Feb 26, 2017 16:21
--- NOTE | 2017-02-24 15:29 | RADRPT ---
EXAM DATE/TIME: 02/24/2017 15:05 [facility] COMPARISON: CHEST SINGLE AP, February 23, 2017, 6:32. INDICATIONS : Shortness of breath. MEDICAL HISTORY : None. SURGICAL HISTORY : None. ENCOUNTER: Subsequent ACUITY: 3 days PAIN SCORE: Non-responsive. LOCATION: chest FINDINGS: There is moderate elevation of the left hemidiaphragm. The lungs are clear. Heart is minimally larg e with vascular is normal. CONCLUSION: Elevation left hemidiaphragm, negative for acute process. Nasir Mack MD FACR on February 24, 2017 at 15:26 Board Certified Radiologist. This report was verified electronically.
[2017-02-24] MEDS: cloNIDine HCL 0.1 MG TAB PO PRN (17:59)
--- NOTE | 2017-02-24 18:38 | HHI.FPPN ---
Addendum to progress note ADDENDUM Reason for addendum: Additonal documentation Additional information S: Interval note: Paged at [phone] by nursing, Meenu, concerning inability to perform head MRI due to pt shaking too much and now concern for elevated BP 157/ 109. Lactic acid up from 1.0 on 02/23 to 1.6 on 02/24, with concern for rattly breathing. O: Vital Signs Date Time Temp Pulse Resp B/P (MAP) Pulse Ox O2 Delivery O2 Flow Rate FiO2 02/24/17 16:08 96.4 118 18 158/112 (127) 90 02/24/17 15:36 Nasal Cannula 3.50 MRI - not done due to pt shaking A/P: High CIWA in 14-17 range and inability to perform MRI. 1. EtOH withdrawal -Continue ativan as per CIWA -Labetalol 10 mg IV q4h PRN for HTN >160/100 2. Respiratory infection vs pneumonitis w/o respiratory depression, but O2 sat 90% on 3.5L NC, rising Lactic acid: 1.0->1.6 - Duonebs q4h -Procalcitonin to r/o bacterial etiology (Eze Castellanos MD R1) Eze Castellanos MD R1 Feb 24, 2017 18:38 Kamala Borden MD Feb 26, 2017 16:21
[2017-02-24] MEDS: LABETALOL HCL 100 MG/20 ML VIAL IV PUSH PRN ×2 (19:04→19:05)
[2017-02-24] MEDS ORDERED: MULTIVITAMIN INJ 10 ML, THIAMINE INJ 100 MG, FOLIC ACID INJ 1 MG in SODIUM CHLOR 0.45% ... IV SCH (20:00)
[2017-02-25] VITALS (12 sets, daily range): BP systolic 129–160; BP diastolic 92–99; PULSE 80–109; RESP 16–33; TEMP 97.4–98.1; O2SAT 93–98
[2017-02-25] MEDS: RESP: ALBUTEROL 2.5 MG/IPRATROPIUM 0.5 MG NEB (SCH) NEB ×7 (00:05→23:49)
[2017-02-25] MEDS: LORazepam 2 MG/ML VIAL IV PUSH PRN ×7 (00:54→21:38)
[2017-02-25] MEDS: DEXT 5%-NACL 0.45% 1000 ML INJ 1,000 ML IV SCH ×3 (00:55→15:30)
[2017-02-25] MEDS: VANCOMYCIN INJ 1,750 MG in SODIUM CHLORID 0.9% 500 ML INJ 500 ML IV SCH (05:22)
[2017-02-25 05:44] LABS: HEMATOCRIT 37.5 % (39.0-51.0); MEAN CELL VOLUME 105.4 FL (80.0-100.0); MEAN CORPUSCULAR HEMOGLOBIN 35.2 PG (27.0-34.0); MEAN CORPUSCULAR HGB CONC 33.4 % (32.0-36.0); PLATELET COUNT 143 TH/MM3 (150-450); RED BLOOD COUNT 3.56 MIL/MM3 (4.50-5.90); RED CELL DISTRIBUTION WIDTH 14.3 % (11.6-17.2); REVIEW FLAG FINAL; WHITE BLOOD COUNT 7.6 TH/MM3 (4.0-11.0)
[2017-02-25] MEDS ORDERED: PHARMACY ORDERED LAB ONE (05:45)
[2017-02-25 06:07] LABS: ANION GAP 6 MEQ/L (5-15); AST (GOT) 118 U/L (15-37); BICARBONATE 31.2 MEQ/L (21.0-32.0); BLOOD UREA NITROGEN 5 MG/DL (7-18); CHLORIDE 100 MEQ/L (98-107); GLOMERULAR FILTRATION RATE 92 ML/MIN (>89); SODIUM (NA) 137 MEQ/L (136-145)
[2017-02-25 06:13] LABS: ALKALINE PHOSPHATASE 116 U/L (45-117); ALT (GPT) 68 U/L (12-78); POTASSIUM 4.1 MEQ/L (3.5-5.1); TOTAL BILIRUBIN ADULT 1.3 MG/DL (0.2-1.0); VANCOMYCIN TROUGH 17.4 MCG/ML (5.0-10.0)
[2017-02-25] MEDS: SODIUM CHLORIDE 0.9% FLUSH 10 ML FLUSH IV FLUSH SCH ×2 (08:26→21:37)
[2017-02-25] MEDS: MULTIVITAMIN INJ 10 ML, THIAMINE INJ 100 MG, FOLIC ACID INJ 1 MG in SODIUM CHLOR 0.45% ... IV SCH (08:26)
[2017-02-25] MEDS: HEPARIN SODIUM - SQ 10,000 UNITS/ML VIAL SQ SCH ×2 (11:00→21:37)
--- NOTE | 2017-02-25 13:53 | RADRPT ---
EXAM DATE/TIME: 02/25/2017 12:37 [facility] COMPARISON: No previous studies available for comparison. INDICATIONS : Altered mental status. MEDICAL HISTORY : Hepatitis C, Seizures, ID, Arthritis, Depression SURGICAL HISTORY : Plates in Bilat legs ENCOUNTER: Subsequent ACUITY: 3 day PAIN SCORE: Nonresponsive. LOCATION: cranial TECHNIQUE: Multiplanar, multisequence MRI of the brain was performed without contrast. FINDINGS: CEREBRUM: There is moderate central and cortical atrophy scattered periventricular white matter changes. There is no extra-axial fluid collection appreciated. There is no restricted diffusion. There is no pare nchymal hemorrhage or acute infarction. WHITE MATTER: Moderate white matter changes EXTRACRANIAL: The visualized portions of the orbits and paranasal sinuses are unremarkable. CONCLUSION: Atrophy, periventricular changes without evidence for acute infarction. Nasir Mack MD FACR on February 25, 2017 at 13:49 Board Certified Radiologist. This report was verified electronically.
--- NOTE | 2017-02-25 14:43 | HHI.FPPN ---
Subjective Remarks Saw and examined the patient this morning. He was unable to respond to any questions as he had just gotten a dose of Ativan. Was transferred to the ICU overnight because of high CIWA scores on the floor. CIWA scores of 22, 22, 16, 16 overnight with 4 doses of Ativan. (Joanne Orosco MD R1) Objective Vitals Vital Signs Date Time Temp Pulse Resp B/P (MAP) Pulse Ox O2 Delivery O2 Flow Rate FiO2 02/25/17 14:00 84 02/25/17 12:00 97.8 97 18 160/97 (118) 97 02/25/17 12:00 84 02/25/17 10:00 84 02/25/17 08:00 87 02/25/17 08:00 98.1 80 18 135/97 (110) 97 02/25/17 07:46 95 Nasal Cannula 2.00 02/25/17 07:00 Nasal Cannula 02/25/17 04:00 97.4 83 16 129/93 (105) 97 02/25/17 04:00 86 02/25/17 00:00 92 02/25/17 00:00 97.9 92 20 131/92 (105) 94 02/24/17 20:00 97.6 81 18 90/55 (67) 100 02/24/17 20:00 81 02/24/17 19:31 95 Nasal Cannula 3.50 02/24/17 19:00 94 Nasal Cannula 2.00 02/24/17 19:00 82 02/24/17 18:50 86 02/24/17 18:42 92 02/24/17 18:40 88 02/24/17 18:38 88 02/24/17 18:29 97.5 02/24/17 16:08 96.4 118 18 158/112 (127) 90 02/24/17 15:36 94 Nasal Cannula 3.50 I/O 02/24/17 02/24/17 02/24/17 02/25/17 02/25/17 02/25/17 07:00 15:00 23:00 07:00 15:00 23:00 Intake Total 0 ml 250 ml 3607 ml 0 ml 1034.5 ml Output Total 2450 ml 1800 ml 375 ml Balance -2450 ml 250 ml 1807 ml -375 ml 1034.5 ml Intake Oral 0 ml 0 ml IV Total 250 ml 3607 ml 1034.5 ml Output Urine Total 2450 ml 1800 ml 375 ml (Joanne Orosco MD R1) Result Diagram: 02/25/17 0455 02/25/17 0600 Objective Remarks GENERAL: Disheveled male, lying in bed, sleeping, will open eyes a little, but does not answer questions SKIN: Bilateral upper extremities with mild edema and erythema and multiple abrasions with evidence of cellulitic changes, no purulence or abscesses HEAD: Normocephalic. Atraumatic. Some beads of sweat on forehead. ENT: some frothy saliva at mouth, no nasal discharge CARDIOVASCULAR: RRR without audible murmurs, gallops, or rubs. RESPIRATORY: Breath sounds coarse bilaterally, listened to anteriorly GASTROINTESTINAL: Abdomen soft, non-tender, nondistended. +bowel sounds MUSCULOSKELETAL: No cyanosis, or edema. NEURO: Afocal. Sleepy (Joanne Orosco MD R1) A/P Assessment and Plan 57-year-old white male with past medical history of alcohol withdrawal presenting to the ED with hypoglycemia, alcohol withdrawal, and altered mental status. Discharge Planning Pending resolution of alcohol withdrawal and completed workup for altered mental status. (Joanne Orosco MD R1) Attending Attestation Patient seen and examined. Case reviewed and discussed Agree with plan of care as discussed with me and documented in the resident note. (Kamala Borden MD) Problem List: (1) Alcohol withdrawal ICD Codes: F10.239 - Alcohol dependence with withdrawal, unspecified Status: Acute Plan: Patient has a history of multiple admissions to the ED from alcohol intoxication and withdrawal. CIWA scores (from recent to old) 12, 12, 12, 12, 12. Transferred to ICU last night because of high CIWA scores. - CIWA protocol - Ativan as needed per protocol - Rally pack, switch to oral when tolerated - Nothing by mouth until more alert and evaluated by speech therapy - Seizure precautions - Precedex/intubation if progressing to more severe withdrawals. (2) Altered mental status ICD Codes: R41.82 - Altered mental status, unspecified Status: Acute Plan: Likely related to alcohol intoxication, also possible alcohol withdrawal seizure and electrolyte disturbances. Also with acute hypoglycemia, [place]. CK normal. Head CT normal. EEG showing possible mild encephalopathic process. Has respiratory alkalosis, possibly as rebound compensation for metabolic acidosis from lactic acid and/or ketoacid accumulation. Beta hydroxybutyrate normal. Chest x-ray shows no acute process. Drug screen with benzodiazepines and cocaine. Ammonia normal. - Blood cultures showing Staph sp coagulase negative. ID to follow - RPR pending (3) Hypertension ICD Codes: I10 - Essential (primary) hypertension Status: Acute Plan: Patient with high pressures not being resolved with Ativan. May have underlying hypertension. -Started on labetalol 10mg IV q4hrs overnight (4) Dyspnea ICD Codes: R06.00 - Dyspnea, unspecified Status: Acute Plan: Increasing oxygen needs yesterday morning. Was on 3L nasal cannula. ABG showed high-normal pH, CO2 slightly elevated, bicarb elevated. He had some increased work on breathing on examination yesterday. Possible developing aspiration pneumonia versus compensation for metabolic acidosis versus respiratory depression from Ativan. RR is normal. Exam improved as of this morning. Repeat chest x-ray was clear. - Continuous pulse ox - Titrate O2 therapy - Monitor for respiratory depression (5) Cellulitis ICD Codes: L03.90 - Cellulitis, unspecified Status: Acute Plan: Possible cellulitis noted on admission physical exam, non-purulent. - Zosyn IV every 6 hours, received 02/23/17, d/c'ed on 02/24/17 - Vancomycin IV every 12 hrs * Pharmacy consult for dosing * Vanc trough to be drawn in the morning * Narrow when appropriate - Blood cultures showing Staph sp coagulase negative. ID to follow (6) Hypoglycemia ICD Codes: E16.2 - Hypoglycemia, unspecified Status: Resolved Plan: [place] with blood glucose in the 40s. Now euglycemic with D5 half normal saline. - IVF of D5 1/2 NS at 125 ml/hr - Regular AccuChecks (7) FEN Status: Acute Plan: Fluids: IVF of D5 1/2 NS at 125 ml/hr Electrolytes: Monitor and replace as needed Nutrition: Nothing by mouth VTE prophylaxis: Heparin 5000 units every 12 hours (Joanne Orosco MD R1) Problem Qualifiers (1) Hypertension: Qualified Codes: I10 - Essential (primary) hypertension (2) Dyspnea: Qualified Codes: R06.02 - Shortness of breath (3) Cellulitis: Qualified Codes: L03.119 - Cellulitis of unspecified part of limb Joanne Orosco MD R1 Feb 25, 2017 14:43 Kamala Borden MD Feb 26, 2017 16:20
[2017-02-25] MEDS: VANCOMYCIN INJ 1,500 MG in SODIUM CHLORID 0.9% 500 ML INJ 500 ML IV SCH (18:17)
[2017-02-25] MEDS: LABETALOL HCL 100 MG/20 ML VIAL IV PUSH PRN (22:06)
[2017-02-26] VITALS (15 sets, daily range): BP systolic 104–156; BP diastolic 74–95; PULSE 85–107; RESP 16–22; TEMP 97.5–98.7; O2SAT 92–100
[2017-02-26] MEDS: RESP: ALBUTEROL 2.5 MG/IPRATROPIUM 0.5 MG NEB (SCH) NEB ×5 (02:57→21:31)
[2017-02-26] MEDS: LORazepam 2 MG/ML VIAL IV PUSH PRN ×3 (05:19→23:05)
[2017-02-26] MEDS: VANCOMYCIN INJ 1,500 MG in SODIUM CHLORID 0.9% 500 ML INJ 500 ML IV SCH (05:20)
[2017-02-26 06:23] LABS: HEMATOCRIT 38.2 % (39.0-51.0); MEAN CELL VOLUME 106.9 FL (80.0-100.0); MEAN CORPUSCULAR HEMOGLOBIN 36.2 PG (27.0-34.0); MEAN CORPUSCULAR HGB CONC 33.9 % (32.0-36.0); PLATELET COUNT 110 TH/MM3 (150-450); RED BLOOD COUNT 3.57 MIL/MM3 (4.50-5.90); RED CELL DISTRIBUTION WIDTH 14.3 % (11.6-17.2); REVIEW FLAG FINAL; WHITE BLOOD COUNT 8.9 TH/MM3 (4.0-11.0)
[2017-02-26 06:49] LABS: ALKALINE PHOSPHATASE 112 U/L (45-117); ALT (GPT) 56 U/L (12-78); ANION GAP 8 MEQ/L (5-15); AST (GOT) 82 U/L (15-37); BICARBONATE 28.4 MEQ/L (21.0-32.0); BLOOD UREA NITROGEN 10 MG/DL (7-18); CHLORIDE 102 MEQ/L (98-107); GLOMERULAR FILTRATION RATE 29 ML/MIN (>89); POTASSIUM 3.2 MEQ/L (3.5-5.1); SODIUM (NA) 138 MEQ/L (136-145); TOTAL BILIRUBIN ADULT 1.2 MG/DL (0.2-1.0)
[2017-02-26] MEDS ORDERED: NS + KCL 40 MEQ INJ 1,000 ML IV SCH (07:45)
[2017-02-26] MEDS ORDERED: SODIUM CHLOR 0.9% 1000 ML INJ 1,000 ML IV ONE (08:00)
--- NOTE | 2017-02-26 08:58 | HHI.FPPN ---
Subjective Remarks Afebrile and vital signs stable overnight. Patient is still difficult to arouse. He is unable to answer questions. After sternal rub, he is able to follow the command of squeeze my finger. Per nurse report, patient is intermittently combative and cursing at her. Family friend at bedside. Apparently, he has been a depressed drinker since his . He has a h/o recent hypoglycemia and seizures. Last drink of alcohol may have been on . (Anderson Matt MD R2) Objective Vitals Vital Signs Date Time Temp Pulse Resp B/P (MAP) Pulse Ox O2 Delivery O2 Flow Rate FiO2 02/26/17 08:00 98.6 89 16 114/77 (89) 92 02/26/17 08:00 86 02/26/17 07:36 94 Nasal Cannula 2.50 02/26/17 06:00 91 02/26/17 04:00 97.5 89 16 131/84 (100) 92 02/26/17 04:00 89 02/26/17 02:00 85 02/26/17 00:00 98.0 95 17 104/74 (84) 98 02/26/17 00:00 95 02/25/17 22:00 108 02/25/17 20:00 109 02/25/17 20:00 97.6 109 33 148/99 (115) 93 02/25/17 19:32 98 Nasal Cannula 2.50 02/25/17 19:00 93 Nasal Cannula 2.00 02/25/17 18:00 84 02/25/17 16:00 84 02/25/17 16:00 98.0 99 18 138/93 (108) 97 02/25/17 14:00 84 02/25/17 12:00 97.8 97 18 160/97 (118) 97 02/25/17 12:00 84 02/25/17 10:00 84 I/O 02/25/17 02/25/17 02/25/17 02/26/17 02/26/17 02/26/17 07:00 15:00 23:00 07:00 15:00 23:00 Intake Total 0 ml 1545.7 ml 2625 ml 515 ml Output Total 375 ml 850 ml 375 ml Balance -375 ml 1545.7 ml 1775 ml 140 ml Intake Oral 0 ml 0 ml IV Total 1545.7 ml 2625 ml 515 ml Output Urine Total 375 ml 850 ml 375 ml (Anderson Matt MD R2) Result Diagram: 02/26/17 0519 02/26/17 0519 Imaging Last Impressions Chest X-Ray 02/26/17 0000 Signed Impressions: Service Date/Time: Sunday, February 26, 2017 09:10 - CONCLUSION: Interval development of mild left lower lobe airspace disease and atelectasis. Maximus Pavon MD Brain MRI 02/25/17 0000 Signed Impressions: Service Date/Time: Saturday, February 25, 2017 12:37 - CONCLUSION: Atrophy, periventricular changes without evidence for acute infarction. Nasir Mack MD FACR Head CT 02/23/17 0000 Signed Impressions: Service Date/Time: Thursday, February 23, 2017 07:38 - CONCLUSION: No significant change has occurred. Maximus Pavon MD Objective Remarks GENERAL: Disheveled male, lying in bed, sleeping, will open eyes a little, but does not answer questions SKIN: Bilateral upper extremities with mild erythema and warmth and multiple well-healing scabs, no purulence or abscesses HEAD: Normocephalic. Atraumatic. Some beads of sweat on forehead. ENT: PERRL, some frothy saliva at mouth, no nasal discharge CARDIOVASCULAR: RRR without audible murmurs, gallops, or rubs. RESPIRATORY: Decreased breath sounds bilaterally, poor air movement GASTROINTESTINAL: Abdomen soft, non-tender, nondistended. +bowel sounds MUSCULOSKELETAL: No cyanosis, or edema. NEURO: Afocal. Sleepy. Patient does open his eyes with sternal rub, and he does squeeze my fingers as commanded. (Anderson Matt MD R2) A/P Assessment and Plan 57-year-old white male with past medical history of alcohol withdrawal presented to the ED with hypoglycemia, alcohol withdrawal, and altered mental status. Discharge Planning Pending resolution of alcohol withdrawal and completed workup for altered mental status. (Anderson Matt MD R2) Attending Attestation Patient seen and examined with the resident team this am. Case reviewed and discussed Agree with plan of care as discussed with me and documented in the resident note. Discussed case with patients friend and nursing at the bedside. ARF and will provide IVF. Monitor accu-checks, urine output Trend BMP (Kamala Borden MD) Problem List: (1) Alcohol withdrawal ICD Codes: F10.239 - Alcohol dependence with withdrawal, unspecified Status: Acute Plan: Patient has a history of multiple admissions to the ED from alcohol intoxication and withdrawal. CIWA scores: 12 for the last nine scorings. Transferred to ICU because of high CIWA scores and difficult to arouse. - CIWA protocol - Ativan as needed per protocol - Rally pack, switch to oral when tolerated - Nothing by mouth until more alert and evaluated by speech therapy. Speech therapy consulted for swallow evaluation and cognitive evaluation - Bolus of normal saline this morning, and then continue maintenance fluids with D5 half-normal saline - Seizure precautions - Precedex/intubation if progressing to more severe withdrawals. (2) Altered mental status ICD Codes: R41.82 - Altered mental status, unspecified Status: Acute Plan: Likely related to alcohol intoxication, also possible alcohol withdrawal seizure, hepatic encephalopathy, Wernicke-Korsakoff syndrome. - Blood cultures showing Staphylococcus hominis hominis. Called microbiology lab. Likely contaminant. We'll repeat blood cultures to be sure. - RPR, hepatitis panel pending (3) SAQIB (acute kidney injury) ICD Codes: N17.9 - Acute kidney failure, unspecified Plan: Patient with SAQIB. Creatinine increased from 0.86 yesterday to 2.35 today. BUN increased from 5 yesterday to 10 today. Unlikely prerenal given BUN to creatinine ratio. Likely caused by vancomycin. -Discontinued vancomycin; replaced with Clindamycin -Normal saline IV fluid bolus -Maintenance fluids with D5 half-normal saline -BMP tomorrow (4) Decreased breath sounds ICD Codes: R06.89 - Other abnormalities of breathing Plan: Patient with decreased breath sounds on exam. - Repeat Chest x-ray today - Duo nebs every 4 hours (5) Cellulitis ICD Codes: L03.90 - Cellulitis, unspecified Status: Acute Plan: Possible cellulitis noted on admission physical exam, non-purulent. - Zosyn IV every 6 hours, received 02/24/17, d/c'ed on 02/24/17. Patient received 3 doses. - Vancomycin IV every 12 hrs, from 02/25-02/26, d/c'ed on 02/26/17. Patient received 2 doses. - Started clindamycin 600 mg IV every 8 hours on 02/26 - Blood cultures showing Staph hominis hominis. Likely contaminant. We'll repeat blood cultures. (6) Dyspnea ICD Codes: R06.00 - Dyspnea, unspecified Status: Acute Plan: On O2 via NC. Weaning off. - Continuous pulse ox - Titrate O2 therapy - Monitor for respiratory depression (7) Hypertension ICD Codes: I10 - Essential (primary) hypertension Status: Acute Plan: Patient with high pressures not being resolved with Ativan. May have underlying hypertension. -Started on labetalol 10mg IV q4hrs PRN for blood pressure over 160/90 -Clonidine 0.1 mg by mouth every 6 hours when necessary For SBP >/= 180, DBP >/ = 100 (8) Hypoglycemia ICD Codes: E16.2 - Hypoglycemia, unspecified Status: Resolved Plan: [place] with blood glucose in the 40s. Now euglycemic with D5 half normal saline. - IVF of D5 1/2 NS at 110 ml/hr - Regular AccuChecks (9) FEN Status: Acute Plan: Fluids: IVF of D5 1/2 NS at 110 ml/hr Electrolytes: Monitor and replace as needed Nutrition: Nothing by mouth VTE prophylaxis: Heparin 5000 units every 12 hours (Anderson Matt MD R2) Problem Qualifiers (1) Cellulitis: Qualified Codes: L03.119 - Cellulitis of unspecified part of limb (2) Dyspnea: Qualified Codes: R06.02 - Shortness of breath (3) Hypertension: Qualified Codes: I10 - Essential (primary) hypertension Anderson Matt MD R2 Feb 26, 2017 08:58 Kamala Borden MD Feb 26, 2017 16:20
[2017-02-26] MEDS: MULTIVITAMIN INJ 10 ML, THIAMINE INJ 100 MG, FOLIC ACID INJ 1 MG in SODIUM CHLOR 0.45% ... IV SCH (09:00)
[2017-02-26] MEDS: SODIUM CHLORIDE 0.9% FLUSH 10 ML FLUSH IV FLUSH SCH ×2 (09:00→22:11)
[2017-02-26] MEDS: DEXT 5%-NACL 0.45% 1000 ML INJ 1,000 ML IV SCH ×2 (09:00→18:06)
--- NOTE | 2017-02-26 09:34 | RADRPT ---
EXAM DATE/TIME: 02/26/2017 09:10 [facility] COMPARISON: CHEST SINGLE AP, February 24, 2017, 15:05. INDICATIONS : Short of breath. MEDICAL HISTORY : Cardiovascular disease. Hypertension SURGICAL HISTORY : None. ENCOUNTER: Subsequent ACUITY: 3 days PAIN SCORE: Non-responsive. LOCATION: Bilateral chest FINDINGS: There is atelectasis at the left lung base and patchy airspace disease present right lung is clear. C ardiomegaly. Mild elevation of the left hemidiaphragm. CONCLUSION: Interval development of mild left lower lobe airspace disease and atelectasis. Maximus Pavon MD on February 26, 2017 at 9:32 Board Certified Radiologist. This report was verified electronically.
[2017-02-26] MEDS: LACTULOSE SYRUP 20 GM/30 ML CUP PO SCH ×4 (09:55→22:11)
[2017-02-26] MEDS: CLINDAMYCIN INJ 600 MG in SODIUM CHLORIDE 0.9% INJ 100 ML IV SCH ×2 (10:00→18:00)
[2017-02-26] MEDS: HEPARIN SODIUM - SQ 10,000 UNITS/ML VIAL SQ SCH ×2 (11:00→22:11)
[2017-02-26] MEDS: LABETALOL HCL 100 MG/20 ML VIAL IV PUSH PRN ×2 (19:31→23:21)
[2017-02-26] MEDS: LORazepam 1 MG TAB PO PRN (19:31)
[2017-02-26] MEDS: cloNIDine HCL 0.1 MG TAB PO PRN (22:12)
[2017-02-27] VITALS (10 sets, daily range): BP systolic 118–144; BP diastolic 80–105; PULSE 80–101; RESP 14; TEMP 97.3–98; O2SAT 98–100
[2017-02-27] MEDS: RESP: ALBUTEROL 2.5 MG/IPRATROPIUM 0.5 MG NEB (SCH) NEB ×6 (00:45→20:21)
[2017-02-27] MEDS: LORazepam 2 MG/ML VIAL IV PUSH PRN ×6 (00:47→21:42)
[2017-02-27] MEDS: CLINDAMYCIN INJ 600 MG in SODIUM CHLORIDE 0.9% INJ 100 ML IV SCH ×3 (01:46→18:23)
[2017-02-27] MEDS: LABETALOL HCL 100 MG/20 ML VIAL IV PUSH PRN ×3 (03:32→18:23)
[2017-02-27] MEDS ORDERED: PHARMACY ORDERED LAB ONE (05:45)
[2017-02-27 06:18] LABS: HEMATOCRIT 36.7 % (39.0-51.0); MEAN CELL VOLUME 106.3 FL (80.0-100.0); MEAN CORPUSCULAR HEMOGLOBIN 35.9 PG (27.0-34.0); MEAN CORPUSCULAR HGB CONC 33.8 % (32.0-36.0); PLATELET COUNT 108 TH/MM3 (150-450); RED BLOOD COUNT 3.45 MIL/MM3 (4.50-5.90); RED CELL DISTRIBUTION WIDTH 14.3 % (11.6-17.2); REVIEW FLAG FINAL; WHITE BLOOD COUNT 6.8 TH/MM3 (4.0-11.0)
[2017-02-27 06:38] LABS: BICARBONATE 24.8 MEQ/L (21.0-32.0); POTASSIUM 3.2 MEQ/L (3.5-5.1)
[2017-02-27] MEDS: cloNIDine HCL 0.1 MG TAB PO PRN (08:24)
[2017-02-27] MEDS: DEXT 5%-NACL 0.45% 1000 ML INJ 1,000 ML IV SCH ×3 (08:24→21:44)
[2017-02-27] MEDS: SODIUM CHLORIDE 0.9% FLUSH 10 ML FLUSH IV FLUSH SCH ×2 (08:32→20:36)
[2017-02-27] MEDS: LACTULOSE SYRUP 20 GM/30 ML CUP PO SCH ×4 (09:00→20:36)
[2017-02-27] MEDS: HEPARIN SODIUM - SQ 10,000 UNITS/ML VIAL SQ SCH (10:52)
[2017-02-27] MEDS: MULTIVITAMIN INJ 10 ML, THIAMINE INJ 100 MG, FOLIC ACID INJ 1 MG in SODIUM CHLOR 0.45% ... IV SCH (14:43)
[2017-02-27] MEDS ORDERED: SODIUM CHLOR 0.9% 1000 ML INJ 1,000 ML IV ONE (15:45)
[2017-02-27] MEDS ORDERED: POTASSIUM CHLORIDE 25 MEQ EFFERVESCENT TAB PO ONE (16:00)
--- NOTE | 2017-02-27 16:38 | HHI.FPPN ---
Subjective Remarks Patient afebrile with vital signs stable overnight. He seems much more awake and alert today. He is opening his eyes and moving his limbs spontaneously. He nods and mumbles in response to questions. I understand him to say that he is not in any pain and he is not having any difficulty breathing. Per nurse report , he is occasionally cursing at her. (Anderson Matt MD R2) Objective Vitals Vital Signs Date Time Temp Pulse Resp B/P (MAP) Pulse Ox O2 Delivery O2 Flow Rate FiO2 02/27/17 12:14 98.0 02/27/17 08:33 97.9 02/27/17 07:29 99 Nasal Cannula 2.00 02/27/17 07:00 Nasal Cannula 2.00 02/27/17 06:00 89 02/27/17 04:00 93 02/27/17 04:00 97.5 93 144/105 (118) 100 02/27/17 02:00 101 02/27/17 00:00 97.3 90 14 118/80 (93) 98 02/27/17 00:00 90 02/26/17 22:00 107 02/26/17 21:32 95 Nasal Cannula 2.00 02/26/17 20:00 91 02/26/17 20:00 98.2 91 19 141/93 (109) 95 02/26/17 19:00 100 Nasal Cannula 2.00 02/26/17 18:00 86 02/26/17 18:00 86 I/O 02/26/17 02/26/17 02/26/17 02/27/17 02/27/17 02/27/17 07:00 15:00 23:00 07:00 15:00 23:00 Intake Total 515 ml 2026 ml 150 ml 1229 ml Output Total 375 ml 850 ml 550 ml Balance 140 ml 2026 ml -700 ml 679 ml Intake Oral 150 ml 100 ml IV Total 515 ml 2026 ml 1129 ml Output Urine Total 375 ml 850 ml 550 ml Stool Total 0 ml # Bowel Movements 1 (Anderson Matt MD R2) Result Diagram: 02/27/17 0546 02/27/17 0546 Imaging Last Impressions Chest X-Ray 02/26/17 0000 Signed Impressions: Service Date/Time: Sunday, February 26, 2017 09:10 - CONCLUSION: Interval development of mild left lower lobe airspace disease and atelectasis. Maximus Pavon MD Brain MRI 02/25/17 0000 Signed Impressions: Service Date/Time: Saturday, February 25, 2017 12:37 - CONCLUSION: Atrophy, periventricular changes without evidence for acute infarction. Nasir Mack MD FACR Head CT 02/23/17 0000 Signed Impressions: Service Date/Time: Thursday, February 23, 2017 07:38 - CONCLUSION: No significant change has occurred. Maximus Pavon MD Objective Remarks GENERAL: Disheveled male, lying in bed, opens eyes and moves limbs spontaneously , mumbles in response to questions SKIN: Bilateral upper extremities with mild erythema and multiple well-healing scabs, no purulence or abscesses. No warmth of UE's today, which is a change from yesterday. HEAD: Normocephalic. Atraumatic. ENT: PERRL, dry mucous membranes, poor dentition CARDIOVASCULAR: RRR without audible murmurs, gallops, or rubs. RESPIRATORY: Coarse, Snoring breath sounds bilaterally, which localized to the upper airway likely transmitted upper airway sounds. Much improved air movement BL GASTROINTESTINAL: Abdomen soft, non-tender, nondistended. +bowel sounds MUSCULOSKELETAL: No cyanosis, or edema. NEURO: Afocal. Awake and alert. Patient does squeeze my fingers as commanded. (Anderson Matt MD R2) A/P Assessment and Plan 57-year-old white male with past medical history of alcohol withdrawal presented to the ED with hypoglycemia, alcohol withdrawal, and altered mental status. Discharge Planning Pending resolution of alcohol withdrawal and completed workup for altered mental status. (Anderson Matt MD R2) Attending Attestation Patient seen and examined. Case reviewed and discussed Agree with plan of care as discussed with me and documented in the resident note. (Kamala Borden MD) Problem List: (1) Alcohol withdrawal ICD Codes: F10.239 - Alcohol dependence with withdrawal, unspecified Status: Acute Plan: Patient has a history of multiple admissions to the ED from alcohol intoxication and withdrawal. CIWA scores since last night at 8 PM: 17, 8, 14 Transferred to ICU because of high CIWA scores and difficult to arouse. - CIWA protocol - Ativan as needed per protocol - Rally pack, switch to oral when tolerated - Speech therapy recommended pure and thin liquids. Feed only when alert. Speech therapy consulted for swallow evaluation and cognitive evaluation - Bolus of normal saline, and continue maintenance fluids with D5 half-normal saline - Seizure precautions - Precedex/intubation if progressing to more severe withdrawals. (2) Altered mental status ICD Codes: R41.82 - Altered mental status, unspecified Status: Acute Plan: Likely related to alcohol intoxication, also possible alcohol withdrawal seizure, hepatic encephalopathy, Wernicke-Korsakoff syndrome, infection. - Blood cultures showing Staphylococcus hominis hominis. Called microbiology lab. Likely contaminant. We'll repeat blood cultures to be sure. Repeat blood cultures negative so far. - RPR, hepatitis panel pending - Continue clindamycin to treat cellulitis (3) SAQIB (acute kidney injury) ICD Codes: N17.9 - Acute kidney failure, unspecified Plan: Patient with SAQIB. Creatinine trended: 0.86, 2.35, to 3.17 today. BUN trended: 5, 15, to 15 today. Unlikely prerenal given BUN to creatinine ratio. Less likely caused by vancomycin. Will initiate work up today. - Renal ultrasound - Urine microscopy -Discontinued vancomycin; replaced with Clindamycin -Normal saline IV fluid bolus -Maintenance fluids with D5 half-normal saline -BMP tomorrow (4) Cellulitis ICD Codes: L03.90 - Cellulitis, unspecified Status: Acute Plan: Possible cellulitis noted on admission physical exam, non-purulent. - Zosyn IV every 6 hours, received 02/24/17, d/c'ed on 02/24/17. Patient received 3 doses. - Vancomycin IV every 12 hrs, from 02/25-02/26, d/c'ed on 02/26/17. Patient received 2 doses. - Started clindamycin 600 mg IV every 8 hours on 02/26 - present. - Blood cultures showing Staph hominis hominis. Likely contaminant. We'll repeat blood cultures. Blood cultures negative so far. (5) Atelectasis ICD Codes: J98.11 - Atelectasis Plan: Patient with decreased breath sounds on exam had repeat Chest x-ray that showed left lung atelectasis. -Chest physiotherapy -Acapella -Patient not using incentive spirometer -Sputum culture -Continue clindamycin to treat possible aspiration pneumonia -Duo nebs every 4 hours (6) Dyspnea ICD Codes: R06.00 - Dyspnea, unspecified Status: Acute Plan: On O2 via NC. Weaning off. - Continuous pulse ox - Titrate O2 therapy - Monitor for respiratory depression (7) Hypertension ICD Codes: I10 - Essential (primary) hypertension Status: Acute Plan: Patient with high pressures not being resolved with Ativan. May have underlying hypertension. -Started on labetalol 10mg IV q4hrs PRN for blood pressure over 160/90 -Clonidine 0.1 mg by mouth every 6 hours when necessary For SBP >/= 180, DBP >/ = 100 (8) Hypoglycemia ICD Codes: E16.2 - Hypoglycemia, unspecified Status: Resolved Plan: [place] with blood glucose in the 40s. Now euglycemic with D5 half normal saline. - IVF of D5 1/2 NS at 110 ml/hr - Regular AccuChecks (9) FEN Status: Acute Plan: Fluids: NS bolus x1, maintenance IVF of D5 1/2 NS at 110 ml/hr Electrolytes: Monitor and replace as needed Nutrition: Nothing by mouth VTE prophylaxis: Heparin 5000 units every 12 hours (Anderson Matt MD R2) Problem Qualifiers (1) Cellulitis: Qualified Codes: L03.119 - Cellulitis of unspecified part of limb (2) Dyspnea: Qualified Codes: R06.02 - Shortness of breath (3) Hypertension: Qualified Codes: I10 - Essential (primary) hypertension Anderson Matt MD R2 Feb 27, 2017 16:38 Kamala Borden MD Feb 27, 2017 23:19
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
[2017-02-28] VITALS (23 sets, daily range): BP systolic 109–163; BP diastolic 67–112; PULSE 75–119; RESP 13–25; TEMP 97.9–98.8; O2SAT 89–100
[2017-02-28] MEDS: HEPARIN SODIUM - SQ 10,000 UNITS/ML VIAL SQ SCH ×3 (00:01→23:38)
[2017-02-28] MEDS: LABETALOL HCL 100 MG/20 ML VIAL IV PUSH PRN ×2 (01:04→21:06)
[2017-02-28] MEDS: LORazepam 2 MG/ML VIAL IV PUSH PRN ×5 (02:51→20:05)
[2017-02-28] MEDS: CLINDAMYCIN INJ 600 MG in SODIUM CHLORIDE 0.9% INJ 100 ML IV SCH ×3 (03:43→15:54)
[2017-02-28] MEDS: RESP: ALBUTEROL 2.5 MG/IPRATROPIUM 0.5 MG NEB (SCH) NEB ×6 (04:00→19:35)
[2017-02-28] MEDS: DEXT 5%-NACL 0.45% 1000 ML INJ 1,000 ML IV SCH ×2 (06:30→09:09)
[2017-02-28] MEDS: MULTIVITAMIN INJ 10 ML, THIAMINE INJ 100 MG, FOLIC ACID INJ 1 MG in SODIUM CHLOR 0.45% ... IV SCH (09:00)
[2017-02-28] MEDS: SODIUM CHLORIDE 0.9% FLUSH 10 ML FLUSH IV FLUSH SCH ×2 (09:08→20:05)
[2017-02-28] MEDS: LACTULOSE SYRUP 20 GM/30 ML CUP PO SCH ×4 (09:08→21:06)
[2017-02-28 14:56] LABS: AUTOMATED NEUTROPHIL # 4.9 TH/MM3 (1.8-7.7); BASOPHIL % 0.4 % (0.0-2.0); EOSINOPHIL # 0.2 TH/MM3 (0-0.4); EOSINOPHIL % 2.7 % (0.0-4.0); HEMATOCRIT 35.9 % (39.0-51.0); HEMO FLAGS DIFF FINAL; LYMPH % 15.7 % (9.0-44.0); LYMPHOCYTE # 1.2 TH/MM3 (1.0-4.8); MEAN CELL VOLUME 105.2 FL (80.0-100.0); MEAN CORPUSCULAR HEMOGLOBIN 35.9 PG (27.0-34.0); MEAN CORPUSCULAR HGB CONC 34.2 % (32.0-36.0); MONO % 14.5 % (0.0-8.0); NEUT % 66.7 % (16.0-70.0); PLATELET COUNT 116 TH/MM3 (150-450); RED BLOOD COUNT 3.41 MIL/MM3 (4.50-5.90); WHITE BLOOD COUNT 7.4 TH/MM3 (4.0-11.0)
--- NOTE | 2017-02-28 15:09 | HHI.FPPN ---
Subjective Remarks Mr. Cuevas was afebrile with intermittent tachycardia (to 105bpm) and BP elevation (SBP in 160's) overnight. Per discussion with nursing staff, patient has been intermittently screening curse words and seems away, but other times since MRSA needed. Patient intermittently pulls at Hall catheter. Patient reportedly had most recent CIWA score of 11 today. In response to questioning, patient was at times understandable with statement of "get the __ away from me" but was generally unintelligible but awake. (Robles Pollock MD, R3) Objective Vitals Vital Signs Date Time Temp Pulse Resp B/P (MAP) Pulse Ox O2 Delivery O2 Flow Rate FiO2 02/28/17 08:34 100 Nasal Cannula 2.00 02/28/17 06:00 77 02/28/17 04:00 105 02/28/17 04:00 98.3 105 25 161/109 (126) 94 02/28/17 02:00 97 02/28/17 00:00 78 02/28/17 00:00 97.9 78 24 163/91 (115) 100 02/27/17 22:00 93 02/27/17 20:22 98 Nasal Cannula 2.00 02/27/17 20:00 80 02/27/17 20:00 97.8 80 133/98 (110) 98 02/27/17 19:00 Room Air I/O 02/27/17 02/27/17 02/27/17 02/28/17 02/28/17 02/28/17 07:00 15:00 23:00 07:00 15:00 23:00 Intake Total 1229 ml 1844 ml 2958 ml 1000 ml Output Total 550 ml 600 ml 650 ml Balance 679 ml 1244 ml 2308 ml 1000 ml Intake Oral 100 ml 240 ml IV Total 1129 ml 1604 ml 2958 ml 1000 ml Output Urine Total 550 ml 600 ml 650 ml Stool Total 0 ml # Bowel Movements 1 0 (Robles Pollock MD, R3) Result Diagram: 02/28/17 1421 02/27/17 0546 Imaging Last Impressions Renal Ultrasound 02/27/17 0000 Signed Impressions: Service Date/Time: Monday, February 27, 2017 20:36 - CONCLUSION: 1. Mildly dilated left renal collecting system. Kidneys normal in size. Trace free fluid. Ruy Hussein MD Chest X-Ray 02/26/17 0000 Signed Impressions: Service Date/Time: Sunday, February 26, 2017 09:10 - CONCLUSION: Interval development of mild left lower lobe airspace disease and atelectasis. Maximus Pavon MD Brain MRI 02/25/17 0000 Signed Impressions: Service Date/Time: Saturday, February 25, 2017 12:37 - CONCLUSION: Atrophy, periventricular changes without evidence for acute infarction. Nasir Mack MD FACR Head CT 02/23/17 0000 Signed Impressions: Service Date/Time: Thursday, February 23, 2017 07:38 - CONCLUSION: No significant change has occurred. Maximus Pavon MD Objective Remarks GENERAL: Disheveled male, lying in bed, awake and moves limbs spontaneously, mumbles in response to questions SKIN: Bilateral upper extremities with mild erythema and multiple well-healing scabs, no purulence or abscesses. No warmth of UE's appreciated. No obvious pain to palpation ENT: Pupils appeared equal and reactive; EOM grossly I. Normal mucous membranes CARDIOVASCULAR: RRR without appreciable murmurs RESPIRATORY: Coughing during exam; course in nature suggestive of lower airway congestion. Also suspect upper airway congestion. GASTROINTESTINAL: Abdomen soft, non-tender, nondistended; normal bowel sounds MUSCULOSKELETAL: No cyanosis, or edema. NEURO: Afocal. Awake and alert. Clear speech at times but other times unintelligible. Patient seemingly oriented to city but would not answer in response to questioning regarding the year or current president. (Robles Pollock MD, R3) A/P Assessment and Plan 57-year-old white male with past medical history of alcohol withdrawal presented to the ED with hypoglycemia, alcohol withdrawal, and altered mental status. Discharge Planning Pending resolution of alcohol withdrawal and completed workup for altered mental status. (Robles Pollock MD, R3) Attending Attestation Patient seen and examined. Case reviewed and discussed Agree with plan of care as discussed with me and documented in the resident note. (Kamala Borden MD) Problem List: (1) Alcohol withdrawal ICD Codes: F10.239 - Alcohol dependence with withdrawal, unspecified Status: Chronic Plan: Impression: Patient has a history of multiple admissions to the ED from alcohol intoxication and withdrawal. Transferred ICU due to concern regarding arousal and agitation/elevated CIWA scores 02/28: Last CIWA score of 11; was previously more elevated 02/27- 19 (02/27 at 1999), 14 (02/27 at 0825) -Continue CIWA protocol - Ativan as needed per protocol - Continue IV Rally pack, switch to oral when tolerated -ST consulted -pure and thin liquids per ST when alert. Feed only when alert - Continue D5 / NS - Seizure precautions - Precedex/intubation if progressing to more severe withdrawals. (2) Altered mental status ICD Codes: R41.82 - Altered mental status, unspecified Status: Acute Plan: Impression: Likely related to alcohol intoxication, also possible alcohol withdrawal seizure, hepatic encephalopathy, Wernicke-Korsakoff syndrome Brain MRI trophy, periventricular changes without evidence for acute infarction Head CT on admission- no significant change EEG Mild background slowing without epileptiform features, may be mild encephalopathic process Ammonia 20, RPR nonreactive CMP on admission with mild hyponatremia (134), transaminase elevations, calcium of 8.1 -Continue IV rally pack -Continue CIWA/ ativan -Hep panel pending -Continue to monitor labs daily (3) SAQIB (acute kidney injury) ICD Codes: N17.9 - Acute kidney failure, unspecified Status: Acute Plan: Impression: Patient with SAQIB. Creatinine trended: 0.86, 2.35, to 3.17 (02/27) BUN/Cr ratio <20/1 On Vancomycin-> discontinued Renal US 02/27 with mild L hydronephrosis; normal kidneys -BMP pending -Will check urine eosinophils -Will repeat UA -Continue maintenance IVF -Will consider nephrology consultation -Continue to monitor urine with catheterization (4) Cellulitis ICD Codes: L03.90 - Cellulitis, unspecified Status: Acute Plan: Impression: Possible cellulitis noted on admission physical exam, non- purulent. Blood cultures 02/23 showing Staph hominis hominis. Likely contaminant. Repeat blood cultures 02/26 negative to date - Started clindamycin 600 mg IV every 8 hours on 02/26 - present. Antibiotic history: - Zosyn IV every 6 hours, received 02/24/17, d/c'ed on 02/24/17. Patient received 3 doses. - Vancomycin IV every 12 hrs, from 02/25-9/4, d/c'ed on 02/26/17. Patient received 2 doses. (5) Atelectasis ICD Codes: J98.11 - Atelectasis Plan: Impression: Patient with decreased breath sounds on exam had repeat Chest x-ray that showed left lung atelectasis. Patient not using incentive spirometer CXR 02/26 with mild LLL airspace disease and atelectasis -Chest physiotherapy -Acapella -Sputum culture ordered; will reorder -Continue clindamycin to treat possible aspiration pneumonia -Duo nebs every 4 hours (6) Dyspnea ICD Codes: R06.00 - Dyspnea, unspecified Status: Acute Plan: Impression: On 2 L O2 via NC. Cough on exam 02/28 CXR 02/26 with mild LLL airspace disease and atelectasis - Continuous pulse ox - Titrate O2 therapy - Monitor for respiratory depression -Duo nebs every 4 hours -Sputum culture ordered; will reorder -Continue clindamycin to treat possible aspiration pneumonia -Will repeat CXR due to cough (7) Hypertension ICD Codes: I10 - Essential (primary) hypertension Status: Chronic Plan: Patient with high pressures not being resolved with Ativan. May have underlying hypertension. -will consider Metoprolol since persistent and may help withdrawal -Started on labetalol 10mg IV q4hrs PRN for blood pressure over 160/90 -Clonidine 0.1 mg by mouth every 6 hours when necessary For SBP >/= 180, DBP >/ = 100 (8) Hypoglycemia ICD Codes: E16.2 - Hypoglycemia, unspecified Status: Resolved Plan: Impression: [place] blood glucose in the 40s. Now euglycemic with D5 half normal saline. Regular accuchecks have been stable - IVF of D5 1/2 NS at 110 ml/hr - Will plan to d/c AccuChecks (9) FEN Status: Acute Plan: Fluids: maintenance IVF of D5 1/2 NS at 110 ml/hr Electrolytes: Monitor and replace as needed Nutrition: Mechanical soft diet VTE prophylaxis: Heparin 5000 units every 12 hours (Robles Pollock MD, R3) Problem Qualifiers (1) Alcohol withdrawal: Qualified Codes: F10.231 - Alcohol dependence with withdrawal delirium (2) Altered mental status: Qualified Codes: R41.0 - Disorientation, unspecified (3) Cellulitis: Qualified Codes: L03.119 - Cellulitis of unspecified part of limb (4) Dyspnea: Qualified Codes: R06.02 - Shortness of breath (5) Hypertension: Qualified Codes: I10 - Essential (primary) hypertension Robles Pollock MD, R3 Feb 28, 2017 15:09 Kamala Borden MD Mar 02, 2017 08:23
[2017-02-28 15:38] LABS: CHLORIDE 110 MEQ/L (98-107); POTASSIUM 3.5 MEQ/L (3.5-5.1); SODIUM (NA) 140 MEQ/L (136-145)
[2017-02-28 15:45] LABS: ALT (GPT) 47 U/L (12-78)
[2017-02-28 16:00] LABS: AST (GOT) 67 U/L (15-37); GLOMERULAR FILTRATION RATE 17 ML/MIN (>89)
[2017-02-28 16:19] LABS: ANION GAP 9 MEQ/L (5-15); BICARBONATE 21.2 MEQ/L (21.0-32.0); BLOOD UREA NITROGEN 17 MG/DL (7-18)
[2017-02-28 16:27] LABS: ALKALINE PHOSPHATASE 104 U/L (45-117); TOTAL BILIRUBIN ADULT 0.9 MG/DL (0.2-1.0)
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
[2017-02-28] MEDS: METOPROLOL TARTRATE 25 MG TAB PO SCH (21:06)
[2017-03-01] VITALS (10 sets, daily range): BP systolic 109–171; BP diastolic 72–112; PULSE 68–121; RESP 14–27; TEMP 97.5–98.9; O2SAT 89–98
[2017-03-01] MEDS: CLINDAMYCIN INJ 600 MG in SODIUM CHLORIDE 0.9% INJ 100 ML IV SCH ×3 (01:24→18:54)
[2017-03-01] MEDS: DEXT 5%-NACL 0.45% 1000 ML INJ 1,000 ML IV SCH ×2 (01:25→22:47)
[2017-03-01] MEDS: LORazepam 2 MG/ML VIAL IV PUSH PRN ×4 (04:29→18:41)
[2017-03-01 06:01] LABS: AUTOMATED NEUTROPHIL # 3.9 TH/MM3 (1.8-7.7); BASOPHIL % 0.5 % (0.0-2.0); EOSINOPHIL # 0.2 TH/MM3 (0-0.4); HEMATOCRIT 35.7 % (39.0-51.0); HEMO FLAGS DIFF FINAL; LYMPH % 16.4 % (9.0-44.0); MEAN CELL VOLUME 105.3 FL (80.0-100.0); MEAN CORPUSCULAR HEMOGLOBIN 35.6 PG (27.0-34.0); MEAN CORPUSCULAR HGB CONC 33.8 % (32.0-36.0); MONO % 15.4 % (0.0-8.0); NEUT % 64.7 % (16.0-70.0); PLATELET COUNT 113 TH/MM3 (150-450); RED BLOOD COUNT 3.39 MIL/MM3 (4.50-5.90); RED CELL DISTRIBUTION WIDTH 14.1 % (11.6-17.2)
--- NOTE | 2017-03-01 06:28 | RADRPT ---
EXAM DATE/TIME: 03/01/2017 05:01 [facility] COMPARISON: CHEST SINGLE AP, February 26, 2017, 9:10. INDICATIONS : Respiratory status. MEDICAL HISTORY : None. SURGICAL HISTORY : None. ENCOUNTER: Subsequent ACUITY: 4 - 6 days PAIN SCORE: Non-responsive. LOCATION: Bilateral chest FINDINGS: Stable left lower lobe airspace disease and associated volume loss. Mild diffuse interstitial promine nce. Cardi result contours are stable. Remainder of the exam is unchanged. CONCLUSION: 1. Stable left lower lobe airspace disease and volume loss. 2. No significant interval change. Kingsley Ricardo MD on March 01, 2017 at 6:25 Board Certified Radiologist. This report was verified electronically.
[2017-03-01 06:32] LABS: ANION GAP 9 MEQ/L (5-15); AST (GOT) 76 U/L (15-37); BLOOD UREA NITROGEN 17 MG/DL (7-18); CHLORIDE 108 MEQ/L (98-107); GLOMERULAR FILTRATION RATE 16 ML/MIN (>89); POTASSIUM 3.5 MEQ/L (3.5-5.1); SODIUM (NA) 139 MEQ/L (136-145)
[2017-03-01 06:34] LABS: ALT (GPT) 47 U/L (12-78)
[2017-03-01 06:36] LABS: ALKALINE PHOSPHATASE 106 U/L (45-117)
--- NOTE | 2017-03-01 07:01 | MB ---
cc: RADHA BAZZI M.D. DATE OF CONSULTATION 02/28/2017 REASON FOR CONSULTATION Mental status change. HISTORY OF PRESENT ILLNESS Mr. Cuevas is a 57-year man who has a history of alcohol abuse who was found to have an alteration in mental status. His drug screen showed cocaine in the urine and benzodiazepines. The patient was very confused. PAST MEDICAL HISTORY No known past medical history. MEDICATIONS Currently are: 1. Clindamycin 2. Metoprolol 25 mg b.i.d. 3. Lactulose 4. DuoNeb 5. Trandate 6. Heparin 5000 b.i.d. 7. Zofran p.r.n. 8. Catapres p.r.n. Ativan p.r.n. NEUROLOGIC EXAMINATION VITAL SIGNS: Blood pressure is 144/105, pulse 77. Higher cortical function, the patient is lethargic but arousable, disoriented to date and place. He has poor recall for both remote and recent events. Poor naming ability. Speech is dysarthric. Cranial nerves intact. Motor exam, there are no focal deficits, but he is generally weak. Reflexes symmetric. MRI of the brain shows atrophy, no acute change present. CT of the brain is unremarkable for any acute change. LABORATORY DATA White count 7004, hemoglobin 12.3, hematocrit 35%, blood count 116,000, PT is 11.1, INR 1, APTT 29.6. Sodium is 140, potassium 3.5, chloride 110, the BUN is 17, creatinine 3.7, GFR 17, AST 67, ALT 47, ammonia level is 20. IMPRESSION Metabolic encephalopathy, I suspect related to alcohol abuse versus alcohol withdrawal. Tox screen was positive as well for benzodiazepines and he also for cocaine which could be contributory. RECOMMENDATIONS Continue supportive care. We will treat the patient with parenteral thiamine as well. MD HOANG Madden/JUAN FRANCISCO /6:48 PM /6:51 AM
[2017-03-01] MEDS: SODIUM CHLORIDE 0.9% FLUSH 10 ML FLUSH IV FLUSH SCH ×2 (09:00→22:56)
[2017-03-01] MEDS: LACTULOSE SYRUP 20 GM/30 ML CUP PO SCH ×4 (09:08→22:49)
[2017-03-01] MEDS: MULTIVITAMIN INJ 10 ML, THIAMINE INJ 100 MG, FOLIC ACID INJ 1 MG in SODIUM CHLOR 0.45% ... IV SCH (09:08)
[2017-03-01] MEDS: METOPROLOL TARTRATE 25 MG TAB PO SCH ×2 (09:08→22:49)
[2017-03-01] MEDS: HEPARIN SODIUM - SQ 10,000 UNITS/ML VIAL SQ SCH ×2 (09:09→22:50)
--- NOTE | 2017-03-01 10:56 | HHI.NPPN ---
Subjective History of Present Illness Naronesi-slwx-lym male with the alcohol withdrawal, altered mental status, acute renal failure Objective Data Data Vital Signs Date Time Temp Pulse Resp B/P (MAP) Pulse Ox O2 Delivery O2 Flow Rate FiO2 03/01/17 08:00 68 03/01/17 07:00 98 Nasal Cannula 2.00 03/01/17 06:00 75 03/01/17 04:00 93 03/01/17 04:00 98.7 93 20 149/94 (112) 03/01/17 02:00 74 03/01/17 00:00 98.8 81 22 109/72 (84) 03/01/17 00:00 81 02/28/17 22:00 98 02/28/17 20:00 98.8 103 18 151/102 (118) 02/28/17 20:00 103 02/28/17 19:36 99 Nasal Cannula 2.00 02/28/17 19:00 98 23 140/101 (114) 02/28/17 19:00 96 Nasal Cannula 2.00 02/28/17 18:13 102 20 151/98 (115) 02/28/17 17:00 100 16 146/91 (109) 98 02/28/17 16:44 104 19 155/112 (126) 99 02/28/17 16:33 108 22 153/107 (122) 94 02/28/17 16:00 105 21 148/103 (118) 96 02/28/17 15:58 108 23 152/107 (122) 95 02/28/17 15:00 119 21 152/104 (120) 95 02/28/17 14:00 101 22 147/103 (118) 98 02/28/17 13:00 100 21 143/96 (112) 89 02/28/17 12:00 95 23 140/95 (110) 93 -: 03/01/17 0552 03/01/17 0552 Physical Exam General Appearance: Malnourished Eyes Eye Exam: Pupils Equal Neck Neck Exam: Neck Supple Pulmonary Resp Exam: Clear Bilaterally, Breath Sounds Equal Cardiology CV Exam: Regular, Normal Sinus Rhythm Gastrointestinal/Abdomen GI Exam: Soft, Non-Tender, Bowel Sounds Present Extremeties Extremities Exam: No Edema Assessment/Plan Problem List: (1) SAQIB (acute kidney injury) ICD Codes: N17.9 - Acute kidney failure, unspecified Status: Acute Plan: Acute renal failure due to dehydration possible vancomycin toxicity and acute tubular necrosis with drug use Continue to hydrate him well Supportive care Await urine studies Monitor BMP His urine output is maintained Creatinine went up to 3.8 (2) Alcohol withdrawal ICD Codes: F10.239 - Alcohol dependence with withdrawal, unspecified Status: Acute Plan: Patient remained in altered mental status (3) Hypertension ICD Codes: I10 - Essential (primary) hypertension Status: Chronic Plan: Patient's blood pressure was labile continue to monitor Problem Qualifiers (1) Hypertension: Qualified Codes: I10 - Essential (primary) hypertension Daryl Martinez MD Mar 01, 2017 10:56
[2017-03-01] MEDS: LORazepam 1 MG TAB PO PRN (12:16)
[2017-03-01] MEDS ORDERED: SODIUM CHLORID 0.9% 500 ML INJ 500 ML IV ONE (13:00)
[2017-03-01] MEDS: LABETALOL HCL 100 MG/20 ML VIAL IV PUSH PRN (15:51)
--- NOTE | 2017-03-01 18:16 | HHI.FPPN ---
Subjective Remarks Mr. Cuevas had no acute events overnight. However, there has been no documentation concerning his CIWA scoring overnight. Vital signs stable with exception for intermittent hypertension to 149/94 and resolving tachycardia below 103. Patient is still in restraints. He is able to respond to yes or no questions however, does not know the name date or place. (Eze Castellanos MD R1) Objective Vitals Vital Signs Date Time Temp Pulse Resp B/P (MAP) Pulse Ox O2 Delivery O2 Flow Rate FiO2 03/01/17 16:00 91 03/01/17 16:00 98.9 91 27 151/101 (118) 89 03/01/17 14:00 85 03/01/17 12:00 98.1 73 17 143/91 (108) 98 03/01/17 12:00 73 03/01/17 10:00 79 03/01/17 08:00 68 03/01/17 08:00 98.4 68 14 114/76 (89) 98 03/01/17 07:00 98 Nasal Cannula 2.00 03/01/17 06:00 75 03/01/17 04:00 93 03/01/17 04:00 98.7 93 20 149/94 (112) 03/01/17 02:00 74 03/01/17 00:00 98.8 81 22 109/72 (84) 03/01/17 00:00 81 02/28/17 22:00 98 02/28/17 20:00 98.8 103 18 151/102 (118) 02/28/17 20:00 103 02/28/17 19:36 99 Nasal Cannula 2.00 02/28/17 19:00 98 23 140/101 (114) 02/28/17 19:00 96 Nasal Cannula 2.00 02/28/17 18:13 102 20 151/98 (115) I/O 02/28/17 02/28/17 02/28/17 03/01/17 03/01/17 03/01/17 07:00 15:00 23:00 07:00 15:00 23:00 Intake Total 2958 ml 1000 ml 240 ml 1471 ml 100 ml 500 ml Output Total 650 ml 700 ml 600 ml Balance 2308 ml 1000 ml -460 ml 871 ml 100 ml 500 ml Intake Oral 240 ml 150 ml IV Total 2958 ml 1000 ml 1321 ml 100 ml 500 ml Output Urine Total 650 ml 700 ml 600 ml # Bowel Movements 0 0 0 (Eze Castellanos MD R1) Result Diagram: 03/01/17 0552 03/01/17 0552 Imaging Last Impressions Chest X-Ray 03/01/17 0600 Signed Impressions: Service Date/Time: February 05:01 - CONCLUSION: 1. Stable left lower lobe airspace disease and volume loss. 2. No significant interval change. Kingsley Ricardo MD Renal Ultrasound 02/27/17 0000 Signed Impressions: Service Date/Time: Monday, February 27, 2017 20:36 - CONCLUSION: 1. Mildly dilated left renal collecting system. Kidneys normal in size. Trace free fluid. Ruy Hussein MD Brain MRI 02/25/17 0000 Signed Impressions: Service Date/Time: Saturday, February 25, 2017 12:37 - CONCLUSION: Atrophy, periventricular changes without evidence for acute infarction. Nasir Mack MD FACR Head CT 02/23/17 0000 Signed Impressions: Service Date/Time: Thursday, February 23, 2017 07:38 - CONCLUSION: No significant change has occurred. Maximus Pavon MD Objective Remarks GENERAL: Disheveled male, lying in bed, awake and moves limbs spontaneously, mumbles in response to questions SKIN: Bilateral upper extremities with mild erythema and multiple well-healing scabs, no purulence or abscesses. No warmth of UE's appreciated. No obvious pain to palpation ENT: Pupils appeared equal and reactive; EOM grossly intact. Normal mucous membranes CARDIOVASCULAR: RRR without appreciable murmurs RESPIRATORY: Coughing during exam; course and nature suggestive of lower airway congestion. Also suspect upper airway congestion from secretions. GASTROINTESTINAL: Abdomen soft, non-tender, nondistended; normal bowel sounds MUSCULOSKELETAL: No cyanosis, or edema. NEURO: Afocal. Awake and alert. Clear speech at times but other times unintelligible. Patient not oriented to name, place or date. (Eze Castellanos MD R1) Urinary Catheter: Yes Assessment to: Continue Hall insert reason: ICU Pt Getting Diuretics Date of Insertion: Feb 23, 2017 (Eze Castellanos MD R1) A/P Assessment and Plan 57-year-old white male with past medical history of alcohol withdrawal presented to the ED with hypoglycemia, alcohol withdrawal, and altered mental status. Metabolic encephalopathy 2/2 EtOH abuse. Discharge Planning Pending resolution of alcohol withdrawal and completed workup for altered mental status. (Eze Castellanos MD R1) Attending Attestation Patient seen and examined with Dr. Castellanos. Case reviewed and discussed Agree with plan of care as discussed with me and documented in the resident note. Discussed with nursing need to continue CIWA protocol as ordered. Transfer out of ICU today if scores remain ok. Monitor BMP, Cr worsening. 1L bolus (Kamala Borden MD) Problem List: (1) Alcohol withdrawal ICD Codes: F10.239 - Alcohol dependence with withdrawal, unspecified Status: Chronic Plan: Impression: Patient has a history of multiple admissions to the ED from alcohol intoxication and withdrawal. Transferred ICU due to concern regarding arousal and agitation/elevated CIWA scores 02/28: Last CIWA score of 11; was previously more elevated 02/27- 19 (02/27 at 2000), 14 (02/27 at 0825) -Continue CIWA protocol - Ativan as needed per protocol - Continue IV Rally pack, switch to oral when tolerated -ST consulted -pure and thin liquids per ST when alert. Feed only when alert - Continue D5 1/2 NS - Seizure precautions - Precedex/intubation if progressing to more severe withdrawals. -Thymine level pending -Neurology consulted -03/01 - Pt more stable today, but still in restraints and moved to the floor (2) Altered mental status ICD Codes: R41.82 - Altered mental status, unspecified Status: Acute Plan: Impression: Likely related to alcohol intoxication, also possible alcohol withdrawal seizure, hepatic/metabolic encephalopathy, Wernicke- Korsakoff syndrome UDS positive for Benzos and Cocaine Brain MRI trophy, periventricular changes without evidence for acute infarction Head CT on admission- no significant change EEG - Mild background slowing without epileptiform features, may be mild encephalopathic process Ammonia 20, RPR nonreactive CMP on admission with mild hyponatremia (134), transaminase elevations, calcium of 8.1 -Continue IV rally pack -Continue CIWA/ ativan -Hep panel pending -Continue to monitor labs daily (3) SAQIB (acute kidney injury) ICD Codes: N17.9 - Acute kidney failure, unspecified Status: Acute Plan: Impression: Patient with SAQIB. Creatinine trended: 0.86, 2.35, to 3.17 (02/27) BUN/Cr ratio <20/1 --> to 3.88 03/01 On Vancomycin-> discontinued Renal US 02/27 with mild L hydronephrosis; normal kidneys -BMP pending -Will check urine eosinophils -Will repeat UA -Given NS 1L bolus today; continue mx IVF -Nephrology consulted, following recs--likely acute tubular necrosis -Continue to monitor urine with catheterization (4) Cellulitis ICD Codes: L03.90 - Cellulitis, unspecified Status: Acute Plan: Impression: Possible cellulitis noted on admission physical exam, non- purulent. Blood cultures 02/23 showing Staph hominis hominis. Likely contaminant. Repeat blood cultures 02/26 negative to date Appear to be resolving on exam 03/01 - Started clindamycin 600 mg IV every 8 hours on 02/26 - present. Antibiotic history: - Zosyn IV every 6 hours, received 02/24/17, d/c'ed on 02/24/17. Patient received 3 doses. - Vancomycin IV every 12 hrs, from 02/25-02/26, d/c'ed on 02/26/17. Patient received 2 doses. (5) Atelectasis ICD Codes: J98.11 - Atelectasis Plan: Impression: Patient with decreased breath sounds on exam had repeat Chest x-ray that showed left lung atelectasis. Patient not using incentive spirometer CXR 02/26 with mild LLL airspace disease and atelectasis -Chest physiotherapy -Acapella -Sputum culture ordered; will reorder -Continue clindamycin to treat possible aspiration pneumonia -Duo nebs every 4 hours -CXR 03/02 ordered as per above (6) Dyspnea ICD Codes: R06.00 - Dyspnea, unspecified Status: Acute Plan: Impression: On 2 L O2 via NC. Cough on exam 02/28 CXR 02/26 with mild LLL airspace disease and atelectasis 03/01 - no longer SOB, but occasional coughing with coarse breath sound bilaterally - Continuous pulse ox - Titrate O2 therapy - Monitor for respiratory depression -Duo nebs every 4 hours -Sputum culture ordered; will reorder -Continue clindamycin to treat possible aspiration pneumonia -Will repeat CXR due to cough (7) Hypertension ICD Codes: I10 - Essential (primary) hypertension Status: Chronic Plan: Patient with high pressures not being resolved with Ativan. May have underlying hypertension. -will consider Metoprolol since persistent and may help withdrawal -Started on labetalol 10mg IV q4hrs PRN for blood pressure over 160/90 -Clonidine 0.1 mg by mouth every 6 hours when necessary For SBP >/= 180, DBP >/ = 100 -03/01 - intermittent systolic BP above 140 overnight--resolving (8) Hypoglycemia ICD Codes: E16.2 - Hypoglycemia, unspecified Status: Resolved Plan: Impression: [place] with blood glucose in the 40s. Now euglycemic with D5 half normal saline. Regular accuchecks have been stable - IVF of D5 1/2 NS at 110 ml/hr - Will plan to d/c AccuChecks (9) FEN Status: Acute Plan: Fluids: maintenance IVF of D5 1/2 NS at 110 ml/hr; given 1L bolus as per above on 03/01 Electrolytes: Monitor and replace as needed Nutrition: Mechanical soft diet VTE prophylaxis: Heparin 5000 units every 12 hours Strict I/Os nursing order to determine if taking PO food so we can d/c D5 IVF (Eze Castellanos MD R1) Problem Qualifiers (1) Alcohol withdrawal: Qualified Codes: F10.231 - Alcohol dependence with withdrawal delirium (2) Altered mental status: Qualified Codes: R41.0 - Disorientation, unspecified (3) Cellulitis: Qualified Codes: L03.119 - Cellulitis of unspecified part of limb (4) Dyspnea: Qualified Codes: R06.02 - Shortness of breath (5) Hypertension: Qualified Codes: I10 - Essential (primary) hypertension Eze Castellanos MD R1 Mar 01, 2017 18:16 Kamala Borden MD Mar 02, 2017 08:28
[2017-03-02] VITALS (12 sets, daily range): BP systolic 122–174; BP diastolic 80–119; PULSE 74–105; RESP 18–28; TEMP 97.5–98.5; O2SAT 90–99
[2017-03-02] MEDS: CLINDAMYCIN INJ 600 MG in SODIUM CHLORIDE 0.9% INJ 100 ML IV SCH ×2 (02:21→09:36)
[2017-03-02] MEDS: LORazepam 2 MG/ML VIAL IV PUSH PRN ×2 (03:48→12:07)
[2017-03-02] MEDS: DEXT 5%-NACL 0.45% 1000 ML INJ 1,000 ML IV SCH (03:53)
[2017-03-02] MEDS: LACTULOSE SYRUP 20 GM/30 ML CUP PO SCH ×4 (09:00→21:00)
[2017-03-02] MEDS: SODIUM CHLORIDE 0.9% FLUSH 10 ML FLUSH IV FLUSH SCH ×2 (09:00→21:20)
[2017-03-02 09:27] LABS: BLOOD GAS VENOUS BASE EXCESS -5.4 mmol/L (-2-2); BLOOD GAS VENOUS HCO3 21 mmol/L (22-26); BLOOD GAS VENOUS O2 CONTENT 10.5 Vol % (9.0-17.0); BLOOD GAS VENOUS O2 HGB SAT 64 % (70-76); BLOOD GAS VENOUS PCO2 49 mmHg (44-48); BLOOD GAS VENOUS PO2 39 mmHg (35-40); BLOOD GAS VENOUS pH 7.25 (7.360-7.400); CRITICAL VALUE YES; DRAW SITE I.V.; LITER FLOW 3 L/M; OXYGEN DEVICE NASAL CANNULA; STAT YES; TEMP CORR TO 98.6
[2017-03-02] MEDS: METOPROLOL TARTRATE 25 MG TAB PO SCH ×2 (09:35→21:00)
--- NOTE | 2017-03-02 09:36 | RADRPT ---
EXAM DATE/TIME: 03/02/2017 08:18 [facility] COMPARISON: CHEST SINGLE AP, March 01, 2017, 5:01. INDICATIONS : Labored breathing. MEDICAL HISTORY : None. SURGICAL HISTORY : None. ENCOUNTER: Initial ACUITY: 4 - 6 days PAIN SCORE: Non-responsive. LOCATION: Bilateral chest FINDINGS: There are increasing consolidative changes left base. The right lung is clear. The heart and pulmona ry vascularity are normal. The portion of the bony skeleton visualized is unremarkable. CONCLUSION: Increasing consolidative changes left base. Nasir Mack MD FACR on March 02, 2017 at 9:34 Board Certified Radiologist. This report was verified electronically.
[2017-03-02 10:02] LABS: BACTERIA, URINE OCC /hpf; BLOOD, URINE SMALL (NEG); GLUCOSE,URINE NEG (NEG); KETONE, URINE NEG (NEG); MUCUS URINE FEW /lpf (OCC); NITRITE,URINE NEG (NEG); URINE COLOR YELLOW (YELLW/STRAW)
[2017-03-02 10:03] LABS: COMMENT2 (UR) CATH
[2017-03-02 10:08] LABS: PHENCYCLIDINE URINE NEG (NEG)
[2017-03-02 10:09] LABS: BATH SALTS (MDPV) UR NEG (NEG); ECSTASY (MDMA) UR NEG (NEG); GABAPENTIN UR NEG (NEG); HEROIN (6-ACETYLMORPHINE) UR NEG (NEG); HYDROMORPHONE U NEG (NEG); K2 SPICE UR NEG (NEG); OBMETHADONE UR NEG (NEG)
[2017-03-02] MEDS: MULTIVITAMIN INJ 10 ML, THIAMINE INJ 100 MG, FOLIC ACID INJ 1 MG in SODIUM CHLOR 0.45% ... IV SCH (10:28)
--- NOTE | 2017-03-02 11:13 | EKG ---
Date Performed: 03/02/2017 Time Performed: 10:47:35 PTAGE: 57 years EKG: Sinus rhythm NORMAL ECG PREVIOUS TRACING : 02/23/2017 07.57 Compared to previous tracing, PAC's are no longer present. DOCTOR: Don Mcgill Interpretating Date/Time 03/02/2017 11:13:07
[2017-03-02 11:16] LABS: AUTOMATED NEUTROPHIL # 4.4 TH/MM3 (1.8-7.7); BASOPHIL % 0.4 % (0.0-2.0); EOSINOPHIL # 0.2 TH/MM3 (0-0.4); EOSINOPHIL % 2.2 % (0.0-4.0); HEMATOCRIT 35.3 % (39.0-51.0); HEMO FLAGS DIFF FINAL; LYMPH % 16.8 % (9.0-44.0); LYMPHOCYTE # 1.2 TH/MM3 (1.0-4.8); MEAN CELL VOLUME 105.8 FL (80.0-100.0); MEAN CORPUSCULAR HEMOGLOBIN 35.5 PG (27.0-34.0); MEAN CORPUSCULAR HGB CONC 33.6 % (32.0-36.0); MONO % 17.6 % (0.0-8.0); PLATELET COUNT 108 TH/MM3 (150-450); RED BLOOD COUNT 3.34 MIL/MM3 (4.50-5.90); RED CELL DISTRIBUTION WIDTH 14.2 % (11.6-17.2)
[2017-03-02 11:32] LABS: ANION GAP 10 MEQ/L (5-15); AST (GOT) 63 U/L (15-37); BICARBONATE 19.5 MEQ/L (21.0-32.0); BLOOD UREA NITROGEN 18 MG/DL (7-18); CHLORIDE 111 MEQ/L (98-107); GLOMERULAR FILTRATION RATE 17 ML/MIN (>89); POTASSIUM 3.6 MEQ/L (3.5-5.1); SODIUM (NA) 140 MEQ/L (136-145)
[2017-03-02 11:35] LABS: ALKALINE PHOSPHATASE 97 U/L (45-117); ALT (GPT) 44 U/L (12-78); TOTAL BILIRUBIN ADULT 0.8 MG/DL (0.2-1.0)
[2017-03-02] MEDS: HEPARIN SODIUM - SQ 10,000 UNITS/ML VIAL SQ SCH ×2 (12:06→21:21)
[2017-03-02] MEDS ORDERED: FUROSEMIDE 100 MG/10 ML VIAL IV PUSH ONE (13:00)
[2017-03-02] MEDS: PANTOPRAZOLE SODIUM 40 MG VIAL IV PUSH SCH ×2 (13:03→21:20)
--- NOTE | 2017-03-02 13:03 | HHI.NPPN ---
Subjective History of Present Illness 57-year-old male with the alcohol withdrawal, altered mental status, acute renal failure Objective Data Data 03/02/17 03/03/17 19:00 07:00 Intake Total 700 ml Balance 700 ml IV Total 700 ml Vital Signs Date Time Temp Pulse Resp B/P (MAP) Pulse Ox O2 Delivery O2 Flow Rate FiO2 03/02/17 08:00 97.5 92 21 164/104 (124) 95 03/02/17 05:38 94 03/02/17 04:00 98.0 88 20 162/99 (120) 99 03/02/17 02:32 94 Nasal Cannula 2.00 03/02/17 00:00 98.4 90 18 146/84 (104) 93 03/01/17 22:01 94 Nasal Cannula 2.00 03/01/17 20:00 97.5 121 20 171/112 (131) 94 03/01/17 16:00 91 03/01/17 16:00 98.9 91 27 151/101 (118) 89 03/01/17 14:00 85 -: 03/02/17 1056 03/02/17 1056 Microbiology 03/02/17 Aerobic Blood Culture, Received Pending 03/02/17 Anaerobic Blood Culture, Received Pending 03/02/17 Aerobic Blood Culture, Received Pending 03/02/17 Anaerobic Blood Culture, Received Pending 03/02/17 Urine Culture, Received Pending 03/02/17 Legionella Antigen - Final, Complete PRESUMPTIVE NEGATIVE FOR LEGIONELLA P... 03/02/17 Streptococcus pneumoniae Antigen (M - Final, Complete PRESUMPTIVE NEGATIVE FOR STREPTOCOCCU... Physical Exam General Appearance: Malnourished Eyes Eye Exam: Pupils Equal Neck Neck Exam: Neck Supple Pulmonary Resp Exam: Crackles, Rhonchi, Diminished Breath Sounds Cardiology CV Exam: Regular, Normal Sinus Rhythm Gastrointestinal/Abdomen GI Exam: Soft, Non-Tender, Bowel Sounds Present Extremeties Extremities Exam: No Edema Assessment/Plan Problem List: (1) SAQIB (acute kidney injury) ICD Codes: N17.9 - Acute kidney failure, unspecified Status: Acute Plan: Acute renal failure acute tubular necrosis with drug use slow down IVF added bicarb CXR increase edema give Lasix Supportive care Await urine studies Monitor BMP His urine output is maintained Creatinine went up to 3.7 (2) Alcohol withdrawal ICD Codes: F10.239 - Alcohol dependence with withdrawal, unspecified Status: Chronic Plan: Patient remained in altered mental status (3) Hypertension ICD Codes: I10 - Essential (primary) hypertension Status: Chronic Plan: Patient's blood pressure was labile continue to monitor Problem Qualifiers (1) Alcohol withdrawal: Qualified Codes: F10.231 - Alcohol dependence with withdrawal delirium (2) Hypertension: Qualified Codes: I10 - Essential (primary) hypertension Daryl Martinez MD Mar 02, 2017 13:02
[2017-03-02] MEDS: SODIUM BICARBONATE 8.4% INJ 100 MEQ in DEXTROSE 5% IN WATE 1000ML INJ 1,000 ML IV SCH ×2 (13:04)
[2017-03-02] MEDS: methylPREDNISolone SOD SUCC 40 MG/1 ML VIAL IV PUSH SCH (13:04)
[2017-03-02] MEDS: PIPERACIL-TAZO 2.25 GM PREMIX 50 ML IV SCH ×2 (14:21→18:55)
[2017-03-02 14:38] LABS: BLOOD GAS VENOUS BASE EXCESS -7.3 mmol/L (-2-2); BLOOD GAS VENOUS HCO3 19 mmol/L (22-26); BLOOD GAS VENOUS O2 CONTENT 12.9 Vol % (9.0-17.0); BLOOD GAS VENOUS O2 HGB SAT 74 % (70-76); BLOOD GAS VENOUS PCO2 46 mmHg (44-48); BLOOD GAS VENOUS PO2 48 mmHg (35-40); BLOOD GAS VENOUS pH 7.23 (7.360-7.400); TEMP CORR TO 98.6
[2017-03-02 14:39] LABS: CRITICAL VALUE YES; DRAW SITE I.V.; LITER FLOW 3 L/M; OXYGEN DEVICE NASAL CANNULA
[2017-03-02 14:40] LABS: STAT NO
[2017-03-02] MEDS: AZITHROMYCIN INJ 500 MG in SODIUM CHLOR 0.9% 250 ML INJ 250 ML IV SCH (14:57)
--- NOTE | 2017-03-02 15:19 | HHI.FPPN ---
Subjective Remarks Patient seen ~0820 Mr. Cuevas was intermittently hypertensive with intermittent tachycardia to HR 90 's and tachypnea to 20's overnight. Patient did not respond to questioning on exam; he appeared to be tearful. Labored breathing at normal rate. Per nursing staff: patient reportedly pulled out IVs overnight. Patient has generally had mumbling speech. Patient had approximately 3 loose, dark stools; nursing staff requested C. difficile and occult blood testing. Patient has continued to cough (Robles Pollock MD, R3) Objective Vitals Vital Signs Date Time Temp Pulse Resp B/P (MAP) Pulse Ox O2 Delivery O2 Flow Rate FiO2 03/02/17 12:00 97.9 105 20 174/114 (134) 92 167/119 (135) 03/02/17 08:00 97.5 92 21 164/104 (124) 95 03/02/17 05:38 94 03/02/17 04:00 98.0 88 20 162/99 (120) 99 03/02/17 02:32 94 Nasal Cannula 2.00 03/02/17 00:00 98.4 90 18 146/84 (104) 93 03/01/17 22:01 94 Nasal Cannula 2.00 03/01/17 20:00 97.5 121 20 171/112 (131) 94 03/01/17 16:00 91 03/01/17 16:00 98.9 91 27 151/101 (118) 89 I/O 03/01/17 03/01/17 03/01/17 03/02/17 03/02/17 03/02/17 07:00 15:00 23:00 07:00 15:00 23:00 Intake Total 1471 ml 100 ml 2111.2 ml 1410 ml Output Total 600 ml 800 ml Balance 871 ml 100 ml 2111.2 ml -800 ml 1410 ml Intake Oral 150 ml IV Total 1321 ml 100 ml 2111.2 ml 1410 ml Output Urine Total 600 ml 800 ml # Bowel Movements 0 3 (Robles Pollock MD, R3) Result Diagram: 03/02/17 1056 03/02/17 1056 Imaging Last Impressions Chest X-Ray 03/02/17 0000 Signed Impressions: Service Date/Time: Thursday, March 02, 2017 08:18 - CONCLUSION: Increasing consolidative changes left base. Nasir Mack MD FACR Renal Ultrasound 02/27/17 Signed Impressions: Service Date/Time: Monday, February 27, 2017 20:36 - CONCLUSION: 1. Mildly dilated left renal collecting system. Kidneys normal in size. Trace free fluid. Ruy Hussein MD Brain MRI 02/25/17 Signed Impressions: Service Date/Time: Saturday, February 25, 2017 12:37 - CONCLUSION: Atrophy, periventricular changes without evidence for acute infarction. Nasir Mack MD FACR Head CT 02/23/17 Signed Impressions: Service Date/Time: Thursday, February 23, 2017 07:38 - CONCLUSION: No significant change has occurred. Maximus Pavon MD Objective Remarks GENERAL: Disheveled male, lying in bed, awake and moves limbs spontaneously, mumbles in response to questions SKIN: Bilateral upper extremities with mild erythema and multiple well-healing scabs, no purulence or abscesses. No warmth of UE's appreciated. No obvious pain to palpation ENT: Pupils appeared equal and reactive; EOM grossly intact. Normal mucous membranes CARDIOVASCULAR: RRR without appreciable murmurs. grossly normal perfusion. No obvious edema RESPIRATORY: Patient with normal rate but increased inspiratory effort. Breath sounds course bilaterally. No audible coughing. GASTROINTESTINAL: Abdomen soft, non-tender, nondistended; normal bowel sounds MUSCULOSKELETAL: No cyanosis, or edema. NEURO: No focal CN defects or peripheral motor/sensory focal defects. Patient did not answer questions but awake (Robles Pollock MD, R3) Date of Insertion: Feb 23, 2017 (Robles Pollock MD, R3) A/P Assessment and Plan 57-year-old white male with past medical history of alcohol withdrawal presented to the ED with hypoglycemia, alcohol withdrawal, and altered mental status. (Robles Pollock MD, R3) Attending Attestation Patient seen and examined. Case reviewed and discussed Agree with plan of care as discussed with me and documented in the resident note. (Kamala Borden MD) Problem List: (1) Altered mental status ICD Codes: R41.82 - Altered mental status, unspecified Status: Acute Plan: Impression: Likely related to alcohol intoxication, also possible alcohol withdrawal seizure, hepatic/metabolic encephalopathy, Wernicke- Korsakoff syndrome UDS positive for Benzos and Cocaine Brain MRI 9/3atrophy, periventricular changes without evidence for acute infarction Head CT on admission- no significant change EEG - Mild background slowing without epileptiform features, may be mild encephalopathic process Ammonia 20, RPR nonreactive CMP on admission with mild hyponatremia (134), transaminase elevations, calcium of 8.1 -Continue IV rally pack -Continue CIWA/ ativan -Hep panel pending -Neuro consulted -Continue supportive care; continue parenteral thiamine -Due to labored breathing and concern for worsened mental status, labs ordered including venous blood gas, lactic acid, blood cultures, CBC, CMP (2) Dyspnea ICD Codes: R06.00 - Dyspnea, unspecified Status: Acute Plan: Impression: Labored breathing 03/02 on exam suggestive of metabolic etiology, but also with congestion. On 2 L O2 via NC. Cough on exam 02/28 CXR 02/26 with mild LLL airspace disease and atelectasis -Will obtain VBG -Will recheck CBC, MP, lactic acid, blood cultures - Continuous pulse ox; titrate O2 therapy -Duo nebs every 4 hours -Started on IV solumedrol 40mg IV BID -Sputum culture ordered; will reorder -Will repeat CXR due to cough (3) SAQIB (acute kidney injury) ICD Codes: N17.9 - Acute kidney failure, unspecified Status: Acute Plan: Impression: Patient with SAQIB. Creatinine trended: 0.86 on admission -> 3.77 03/02 (has been >3 since 02/27) Suspect intrinsic cause as Cr elevation refractory to fluid supplementation, BUN /Cr ratio <20/1, and catheterized Previously on Vancomycin-> discontinued Renal US 02/27 with mild L hydronephrosis; normal kidneys No urine eosinophils Cr 41.6 Urine sodium 97 -Nephrology consulted -Suspect ATN with drug use -Continue IVF -Await urine studies -Monitor BMP (4) Alcohol withdrawal ICD Codes: F10.239 - Alcohol dependence with withdrawal, unspecified Status: Chronic Plan: Impression: Patient has a history of multiple admissions to the ED from alcohol intoxication and withdrawal. Transferred ICU due to concern regarding arousal and agitation/elevated CIWA score. Since prolonged; suspect agitation from cause other than alcohol withdrawal 03/02: Persistent elevations not suspected secondary to withdrawal: 16<-13<-5<-11 -Continue CIWA protocol - Ativan as needed per protocol - Continue IV Rally pack, switch to oral when tolerated -ST consulted -pure and thin liquids per ST when alert. Feed only when alert - Continue IVF while not having adequate intake - Seizure precautions -Thymine level pending -Neurology consulted (5) Cellulitis ICD Codes: L03.90 - Cellulitis, unspecified Status: Resolved Plan: Impression: Possible cellulitis noted on admission physical exam, non- purulent. Blood cultures 02/23 showing Staph hominis hominis. Likely contaminant. Repeat blood cultures 02/26 negative to date 03/02- Not appreciated on exam - Started clindamycin 600 mg IV every 8 hours on 02/26 - present. Antibiotic history: - Zosyn IV every 6 hours, received 02/24/17, d/c'ed on 02/24/17. Patient received 3 doses. - Vancomycin IV every 12 hrs, from 02/25-02/26, d/c'ed on 02/26/17. Patient received 2 doses. (6) Atelectasis ICD Codes: J98.11 - Atelectasis Status: Acute Plan: Impression: Patient with decreased breath sounds on exam had repeat Chest x-ray that showed left lung atelectasis. Patient not using incentive spirometer CXR 02/26 with mild LLL airspace disease and atelectasis -Chest physiotherapy -Acapella -Sputum culture ordered; will reorder -Continue clindamycin to treat possible aspiration pneumonia -Duo nebs every 4 hours -CXR 03/02 ordered as per above (7) Hypertension ICD Codes: I10 - Essential (primary) hypertension Status: Chronic Plan: Patient with high pressures not being resolved with Ativan. May have underlying hypertension. -Continue Metoprolol 25mg BID -Continue labetalol 10mg IV q4hrs PRN for blood pressure over 160/90 -Clonidine 0.1 mg by mouth every 6 hours when necessary For SBP >/= 180, DBP >/ = 100 (8) Hypoglycemia ICD Codes: E16.2 - Hypoglycemia, unspecified Status: Resolved Plan: Impression: [place] with blood glucose in the 40s. Now euglycemic with D5 half normal saline. Regular accuchecks have been stable - Continue IVF containing dextrose supplementation (9) FEN Status: Acute Plan: Fluids: maintenance IVF Electrolytes: Monitor and replace as needed Nutrition: Mechanical soft diet VTE prophylaxis: Heparin 5000 units every 12 hours (Robles Pollock MD, R3) Remarks Labs/imaging reviewed this morning: vBG with pH 7.25, HCO3 21, pO2 39, [id number] Chemistry panel with stable cr ~3.8; other electrolytes wnl, bicarb 21.2 Lactic acid 0.8 CBC largely unchanged with mild anemia and thrombocytopenia CXR 03/02 with increasing consolidative changes L base Plan: Respiratory: -Due to worsening CXR and vBG, patient's clindamycin changed to Azithromycin and Zosyn; will defer addition of Vancomycin initially since poor renal function not on dialysis -Will recheck blood gas -Will monitor labs/cultures/urinary antigen SAQIB (Cr 3.77) w/ labored breathing; low bicarbonate and vBG pH -Discussed with Nephrology; will add 2 amps bicarb to IVF report of blood in stool -Will check C diff and FOBT -Will start on IV Protonix 40mg BID while awaiting FOBT (Robles Pollock MD, R3) Problem Qualifiers (1) Altered mental status: Qualified Codes: R41.0 - Disorientation, unspecified (2) Dyspnea: Qualified Codes: R06.02 - Shortness of breath (3) Alcohol withdrawal: Qualified Codes: F10.231 - Alcohol dependence with withdrawal delirium (4) Cellulitis: Qualified Codes: L03.119 - Cellulitis of unspecified part of limb (5) Hypertension: Qualified Codes: I10 - Essential (primary) hypertension Robles Pollock MD, R3 Mar 02, 2017 15:19 Kamala Borden MD Mar 04, 2017 15:52
[2017-03-02] MEDS: RESP: ALBUTEROL 2.5 MG/IPRATROPIUM 0.5 MG NEB (SCH) NEB ×2 (15:29→21:17)
--- NOTE | 2017-03-02 15:32 | HHI.PR ---
Addendum to Inpatient Note Addendum Reason: Additional Documentation Additional Information Patient re-evaluated this afternoon by attending physician Dr. Borden; patient reportedly had poor worsening respiratory status and signs of fluid overload. -Patient transferred to [facility] for closer monitoring and assistance in management -Per EMR, Lasix 80mg IV per Nephrology given at 1517 for signs of fluid overload Robles Pollock MD, R3 Mar 02, 2017 15:32
[2017-03-02 15:43] LABS: C. DIFF EPI 027 PRESUMPTIVE NEGATIVE (NEGATIVE)
[2017-03-02 17:43] LABS: BLOOD GAS CARBOXYHEMOGLOBIN 1.8 % (0-4); BLOOD GAS HCO3 18 mmol/L (22-26); BLOOD GAS O2 HGB SATURATION 93 % (90-100); BLOOD GAS OXYGEN CONTENT 15.5 Vol % (12.0-20.0); BLOOD GAS PCO2 42 mmHg (38-42); BLOOD GAS PO2 93 mmHg (61-120); BLOOD GAS TOTAL HGB 11.7 G/DL (12.0-16.0); CRITICAL VALUE YES; OXYGEN DEVICE NASAL CANNULA; TEMP CORR TO 98.6
--- NOTE | 2017-03-02 17:43 | PD.CONS ---
[facility] Service Critical Care Medicine Consult Requested By Family Medicine service Dr. Nicole Reason for Consult Respiratory insufficiency with fluid overload, acute kidney injury, altered mental status, EtOH withdrawal Primary Care Physician Unknown History of Present Illness This is a 57-year-old male that was found down and admitted to this hospital 02/23/2017. Urine tox screen revealed patient was positive for benzodiazepines and cocaine at that time. Since admission the patient has been on a [facility] protocol, neurology has been consulted Dr. Wayne, with continued supportive care. Over the last 48 hours the patient was noted to have elevation in his creatinine with a significant decrease in urine output acute renal failure nephrology was consulted the patient continues on gentle diuresis and received 80 mg of Lasix IV this afternoon and is currently on sodium bicarbonate infusion at 110 cc/an hour. Due to the patient's respiratory insufficiency, and altered mental status concern for possible continued respiratory decompensation the patient was transferred to the ICU, and critical care was consulted for management. Upon entering the patient's room the patient was noted to be lethargic having received 4 mg of Ativan in the last 4 hours, but opens eyes to sternal rub. The patient was noted to have O2 saturation of 95% on O2 via nasal cannula at 5 L with no accessory respiratory efforts. Stat ABG was ordered pending, to rule out CO2 narcosis. Since admission to ICU the patient was noted to diuresis of 700 cc. Review of Systems ROS Limitations: Clinical Condition (extremely lethargic.) Past Family Social History Allergies: Coded Allergies: No Known Allergies (Verified , 02/09/17) Past Medical History EtOH abuse, polysubstance abuse, hypertension Past Surgical History Unable to obtain Reported Medications see MAR Active Ordered Medications see MAR Family History Unable to obtain secondary to patient's current medical condition . Social History Polysubstance use Physical Exam Vital Signs Vital Signs Date Time Temp Pulse Resp B/P (MAP) Pulse Ox O2 Delivery O2 Flow Rate FiO2 03/02/17 15:29 90 Nasal Cannula 4.00 03/02/17 12:00 97.9 105 20 174/114 (134) 92 167/119 (135) 03/02/17 09:16 92 Nasal Cannula 3.00 03/02/17 08:00 97.5 92 21 164/104 (124) 95 03/02/17 05:38 94 03/02/17 04:00 98.0 88 20 162/99 (120) 99 03/02/17 02:32 94 Nasal Cannula 2.00 03/02/17 00:00 98.4 90 18 146/84 (104) 93 03/01/17 22:01 94 Nasal Cannula 2.00 03/01/17 20:00 97.5 121 20 171/112 (131) 94 Physical Exam GENERAL: This is a malnourished, lethargic ill male, responsive to deep sternal rub SKIN: Warm and dry. Noted gauze dressing right forearm HEAD: Atraumatic. Normocephalic. EYES: Pupils equal and round. No scleral icterus. No injection or drainage. ENT: No nasal bleeding or discharge. Mucous membranes pink and moist. NECK: Trachea midline. No JVD. CARDIOVASCULAR: Normal rate, regular rhythm. RESPIRATORY: No accessory muscle use. Clear to auscultation. Breath sounds equal bilaterally. Nasal cannula GASTROINTESTINAL: Abdomen soft, non-tender, nondistended. No guarding. MUSCULOSKELETAL: Extremities without clubbing, cyanosis, or edema. No obvious deformities. NEUROLOGICAL: Patient extremely lethargic, not cooperative following my commands. Patient does wake up to painful stimuli, and provides inappropriate voice response Laboratory Laboratory Tests Test 03/02/17 09:17 03/02/17 09:20 03/02/17 10:56 03/02/17 11:50 Blood Gas Puncture Site I.V. Blood Gas Patient Temperature 98.6 Venous Blood pH 7.25 Venous Blood Partial Pressure CO2 49 Venous Blood Partial Pressure O2 39 Venous Blood HCO3 21 Venous Blood Oxygen Saturation 64 Venous Blood Oxygen Content 10.5 Venous Blood Base Excess -5.4 Oxygen Delivery Device NASAL CANNULA Blood Gas Liter Flow 3 Urine Color YELLOW Urine Turbidity CLEAR Urine pH 5.0 Urine Specific Baldwin 1.007 Urine Protein NEG Urine Glucose (UA) NEG Urine Ketones NEG Urine Occult Blood SMALL Urine Nitrite NEG Urine Bilirubin NEG Urine Urobilinogen LESS THAN 2.0 Urine Leukocyte Esterase SMALL Urine RBC 4 Urine WBC 2 Urine Bacteria OCC Urine Mucus FEW Urine Eosinophils NONE SEEN Urine Random Creatinine 41.6 Urine Random Sodium 97 White Blood Count 7.0 Red Blood Count 3.34 Hemoglobin 11.9 Hematocrit 35.3 Mean Corpuscular Volume 105.8 Mean Corpuscular Hemoglobin 35.5 Mean Corpuscular Hemoglobin Concent 33.6 Red Cell Distribution Width 14.2 Platelet Count 108 Mean Platelet Volume 9.8 Neutrophils (%) (Auto) 63.0 Lymphocytes (%) (Auto) 16.8 Monocytes (%) (Auto) 17.6 Eosinophils (%) (Auto) 2.2 Basophils (%) (Auto) 0.4 Neutrophils # (Auto) 4.4 Lymphocytes # (Auto) 1.2 Monocytes # (Auto) 1.2 Eosinophils # (Auto) 0.2 Basophils # (Auto) 0.0 CBC Comment DIFF FINAL Differential Comment Blood Urea Nitrogen 18 Creatinine 3.77 Random Glucose 78 Total Protein 6.5 Albumin 2.1 Calcium Level 8.0 Alkaline Phosphatase 97 Aspartate Amino Transf (AST/SGOT) 63 Alanine Aminotransferase (ALT/SGPT) 44 Total Bilirubin 0.8 Sodium Level 140 Potassium Level 3.6 Chloride Level 111 Carbon Dioxide Level 19.5 Anion Gap 10 Estimat Glomerular Filtration Rate 17 Lactic Acid Level 0.8 Stool C. difficile Toxin (PCR) NEGATIVE Stl C. difficile Toxin Epiderm 027 PRESUMPTIVE NEGATIVE Test 03/02/17 14:28 03/02/17 17:38 Blood Gas Puncture Site I.V. Blood Gas Patient Temperature 98.6 Venous Blood pH 7.23 Venous Blood Partial Pressure CO2 46 Venous Blood Partial Pressure O2 48 Venous Blood HCO3 19 Venous Blood Oxygen Saturation 74 Venous Blood Oxygen Content 12.9 Venous Blood Base Excess -7.3 Oxygen Delivery Device NASAL CANNULA Blood Gas Liter Flow 3 Date/Time Source Procedure Growth Status 03/02/17 10:56 Blood Peripheral Aerobic Blood Culture Pending Received 03/02/17 10:56 Blood Peripheral Anaerobic Blood Culture Pending Received 03/02/17 11:50 Stool Stool Stool Occult Blood (LILLY) Pending Received 03/02/17 09:20 Urine Catheterized Urine Urine Culture Pending Received Result Diagram: 03/02/17 1056 03/02/17 1056 Imaging Last Impressions Chest X-Ray 03/02/17 0000 Signed Impressions: Service Date/Time: Thursday, March 02, 2017 08:18 - CONCLUSION: Increasing consolidative changes left base. Nasir Mack MD FACR Renal Ultrasound 02/27/17 0000 Signed Impressions: Service Date/Time: Monday, February 27, 2017 20:36 - CONCLUSION: 1. Mildly dilated left renal collecting system. Kidneys normal in size. Trace free fluid. Ruy Hussein MD Brain MRI 02/25/17 0000 Signed Impressions: Service Date/Time: Saturday, February 25, 2017 12:37 - CONCLUSION: Atrophy, periventricular changes without evidence for acute infarction. Nasir Mack MD FACR Head CT 02/23/17 0000 Signed Impressions: Service Date/Time: Thursday, February 23, 2017 07:38 - CONCLUSION: No significant change has occurred. Maximus Pavon MD Septic Shock Reassessment Heart: Regular rate and rhythm Lungs: Crackles (in bases) Peripheral Pulses: Bounding Right Radial Bounding Left Radial Bounding Right Dorsalis Pedis Bounding Left Dorsalis Pedis Capillary Refill: Brisk Assessment and Plan Assessment and Plan Neurologic: EtOH withdrawal Polysubstance abuse Altered mental status Neurochecks per ICU protocol Neurology following-Dr. 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 Martinez -- Strict I/Os FEN/GI: Monitor LFT Sodium bicarbonate infusion- Management per nephrology Electrolyte replacement per ICU protocol Maintain nothing by mouth status currently secondary to lethargy and possible aspiration Heme/ID: Cellulitis right forearm Monitor CBC Continue antibiotics Monitor INR Endocrine: Glucose monitoring per ICU protocol -- SSI Prophylaxis: GI Prophylaxis Pepcid DVT Prophylaxis -- SCDs Lines: Peripheral IVs providing adequate access at this time Dispo: This patient remains critically ill with one or more organ systems which are or may become a threat to life. I have spent in excess of 30 minutes discontinuously in the care and management of this patient. This time is exclusive of procedures, and includes, but is not limited to, evaluation of the patient, review of the medical record, discussions with family, consultants, nursing staff, or respiratory therapy, and documentation in the medical record. Code Status Full Discussed Condition With SEISMIC PROSPECTING OBSERVER at bedside Edie Marte MD Mar 02, 2017 17:43
[2017-03-02 17:44] LABS: DRAW SITE LT RADIAL; LITER FLOW 6 L/M; NUMBER OF ARTERIAL PUNCTURES 1; STAT YES; ULNAR PULSE PRESENT
[2017-03-02] MEDS ORDERED: LORazepam 2 MG/ML VIAL IV PUSH PRN ×4 (22:45)
[2017-03-02] MEDS ORDERED: LORazepam 1 MG TAB PO PRN (22:45)
[2017-03-02] MEDS ORDERED: LORazepam 2 MG TAB PO PRN (22:45)
[2017-03-02] MEDS ORDERED: HALOPERIDOL LACTATE 5 MG/ML AMP IM PRN (22:45)
[2017-03-02] MEDS ORDERED: FLUMAZENIL 0.5 MG/5 ML VIAL IV PUSH PRN (22:45)
[2017-03-03] VITALS (8 sets, daily range): BP systolic 146–164; BP diastolic 57–95; PULSE 65–110; RESP 18–24; TEMP 98–98.6; O2SAT 95–99
[2017-03-03] MEDS: PIPERACIL-TAZO 2.25 GM PREMIX 50 ML IV SCH ×5 (00:15→23:32)
[2017-03-03] MEDS: methylPREDNISolone SOD SUCC 40 MG/1 ML VIAL IV PUSH SCH ×2 (00:16→13:08)
[2017-03-03] MEDS: RESP: ALBUTEROL 2.5 MG/IPRATROPIUM 0.5 MG NEB (SCH) NEB ×6 (00:27→20:00)
[2017-03-03] MEDS: LABETALOL HCL 100 MG/20 ML VIAL IV PUSH PRN ×2 (02:20→20:49)
[2017-03-03 06:01] LABS: AUTOMATED NEUTROPHIL # 5.3 TH/MM3 (1.8-7.7); BASOPHIL % 0.3 % (0.0-2.0); HEMATOCRIT 36.6 % (39.0-51.0); HEMO FLAGS DIFF FINAL; LYMPH % 9.9 % (9.0-44.0); LYMPHOCYTE # 0.6 TH/MM3 (1.0-4.8); MEAN CORPUSCULAR HEMOGLOBIN 34.8 PG (27.0-34.0); MEAN CORPUSCULAR HGB CONC 33.2 % (32.0-36.0); MONO % 3.2 % (0.0-8.0); NEUT % 86.6 % (16.0-70.0); PLATELET COUNT 124 TH/MM3 (150-450); RED BLOOD COUNT 3.49 MIL/MM3 (4.50-5.90); RED CELL DISTRIBUTION WIDTH 13.9 % (11.6-17.2); WHITE BLOOD COUNT 6.1 TH/MM3 (4.0-11.0)
[2017-03-03 06:10] LABS: PROTHROMBIN TIME - PATIENT 11.6 SEC (9.8-11.6)
[2017-03-03 06:26] LABS: ALT (GPT) 45 U/L (12-78); ANION GAP 9 MEQ/L (5-15); AST (GOT) 61 U/L (15-37); BICARBONATE 25.2 MEQ/L (21.0-32.0); BLOOD UREA NITROGEN 22 MG/DL (7-18); CHLORIDE 103 MEQ/L (98-107); GLOMERULAR FILTRATION RATE 16 ML/MIN (>89); POTASSIUM 3.6 MEQ/L (3.5-5.1); SODIUM (NA) 137 MEQ/L (136-145)
[2017-03-03 06:29] LABS: ALKALINE PHOSPHATASE 93 U/L (45-117); TOTAL BILIRUBIN ADULT 0.7 MG/DL (0.2-1.0)
[2017-03-03] MEDS: PANTOPRAZOLE SODIUM 40 MG VIAL IV PUSH SCH ×2 (08:34→20:48)
[2017-03-03] MEDS: METOPROLOL TARTRATE 25 MG TAB PO SCH ×2 (08:34→21:00)
[2017-03-03] MEDS: SODIUM BICARBONATE 8.4% INJ 100 MEQ in DEXTROSE 5% IN WATE 1000ML INJ 1,000 ML IV SCH ×2 (08:34)
[2017-03-03] MEDS: SODIUM CHLORIDE 0.9% FLUSH 10 ML FLUSH IV FLUSH SCH ×2 (08:35→20:48)
[2017-03-03] MEDS: chlordiazePOXIDE 25 MG CAP PO SCH ×4 (08:35→17:00)
[2017-03-03] MEDS: LACTULOSE SYRUP 20 GM/30 ML CUP PO SCH ×4 (08:35→21:00)
[2017-03-03] MEDS: MULTIVITAMIN INJ 10 ML, THIAMINE INJ 100 MG, FOLIC ACID INJ 1 MG in SODIUM CHLOR 0.45% ... IV SCH ×2 (08:36→08:46)
--- NOTE | 2017-03-03 09:12 | HHI.CCPN ---
Subjective Remarks/Hospital Course This is a 57-year-old male that was found down and admitted to this hospital 02/23/2017. Urine tox screen revealed patient was positive for benzodiazepines and cocaine at that time. Since admission the patient has been on a [facility] protocol, neurology has been consulted Dr. Wayne, with continued supportive care. Over the last 48 hours the patient was noted to have elevation in his creatinine with a significant decrease in urine output acute renal failure nephrology was consulted the patient continues on gentle diuresis and received 80 mg of Lasix IV this afternoon and is currently on sodium bicarbonate infusion at 110 cc/an hour. Due to the patient's respiratory insufficiency, and altered mental status concern for possible continued respiratory decompensation the patient was transferred to the ICU, and critical care was consulted for management. Upon entering the patient's room the patient was noted to be lethargic having received 4 mg of Ativan in the last 4 hours, but opens eyes to sternal rub. The patient was noted to have O2 saturation of 95% on O2 via nasal cannula at 5 L with no accessory respiratory efforts. Stat ABG was ordered pending, to rule out CO2 narcosis. Since admission to ICU the patient was noted to diuresis of 700 cc. Subjective: 03/03: Afebrile. The patient did not receive any Ativan since 3 PM on 03/02/17. The patient rested well overnight, eventually waking and responding. This a.m. the patient's noted to be sitting up in bed, alert and responsive. Librium has been added to medication regimen for alcohol withdrawal. Noted to be oriented to date of unable to provide name or place at this time. Essential tremors, fine tremors noted. The patient severely weak and unable to feed self without assistance. The patient's diet was advanced to regular diet, tolerating well, 100% consumption. PO meds were held since admission to ICU secondary to lethargy, all by mouth meds resumed this a.m.. The patient currently is compliant following commands, inappropriate responses, with noted incomprehensible words, language at times. Patient is noted to be very weak. Nasal cannula O2 has been weaned down to approximately 3 L, the patient appears in no respiratory distress. Objective Vital Signs Date Time Temp Pulse Resp B/P (MAP) Pulse Ox O2 Delivery O2 Flow Rate FiO2 03/03/17 08:02 95 21 03/03/17 07:31 86 03/03/17 07:31 98.0 20 146/95 (112) Manual Cuff/Auscultation 03/03/17 07:29 Nasal Cannula 2.00 Intake and Output 03/03/17 03/03/17 03/04/17 08:00 16:00 00:00 Intake Total 1530 ml Output Total 1400 ml Balance 130 ml Result Diagram: 03/03/17 0545 03/03/17 0545 Other Results Microbiology Date/Time Source Procedure Growth Status 03/02/17 11:50 Stool Stool Stool Occult Blood (LILLY) - Final HEMOCCULT NEGATIVE Complete 03/02/17 09:20 Urine Catheterized Urine Legionella Antigen - Final PRESUMPTIVE NEGATIVE FOR LEGIONELLA P... Complete 03/02/17 09:20 Urine Catheterized Urine Streptococcus pneumoniae Antigen (M - Final PRESUMPTIVE NEGATIVE FOR STREPTOCOCCU... Complete Laboratory Tests Test 03/02/17 09:17 03/02/17 14:28 03/02/17 17:38 Blood Gas Puncture Site I.V. I.V. LT RADIAL Blood Gas Patient Temperature 98.6 98.6 98.6 Venous Blood pH 7.25 (7.360-7.400) 7.23 (7.360-7.400) Venous Blood Partial Pressure CO2 49 mmHg (44-48) 46 mmHg (44-48) Venous Blood Partial Pressure O2 39 mmHg (35-40) 48 mmHg (35-40) Venous Blood HCO3 21 mmol/L (22-26) 19 mmol/L (22-26) Venous Blood Oxygen Saturation 64 % (70-76) 74 % (70-76) Venous Blood Oxygen Content 10.5 Vol % (9.0-17.0) 12.9 Vol % (9.0-17.0) Venous Blood Base Excess -5.4 mmol/L (-2-2) -7.3 mmol/L (-2-2) Oxygen Delivery Device NASAL CANNULA NASAL CANNULA NASAL CANNULA Blood Gas Liter Flow 3 L/M 3 L/M 6 L/M Blood Gas HCO3 18 mmol/L (22-26) Blood Gas Base Excess -8.0 mmol/L (-2-2) Blood Gas Oxygen Saturation 93 % (90-100) Arterial Blood pH 7.25 (7.380-7.420) Arterial Blood Partial Pressure CO2 42 mmHg (38-42) Arterial Blood Partial Pressure O2 93 mmHg (61-120) Arterial Blood Oxygen Content 15.5 Vol % (12.0-20.0) Arterial Blood Carboxyhemoglobin 1.8 % (0-4) Arterial Blood Methemoglobin 1.0 % (0-2) Blood Gas Hemoglobin 11.7 G/DL (12.0-16.0) Imaging Last Impressions Chest X-Ray 03/02/17 0000 Signed Impressions: Service Date/Time: Thursday, March 02, 2017 08:18 - CONCLUSION: Increasing consolidative changes left base. Nasir Mack MD FACR Renal Ultrasound 02/27/17 0000 Signed Impressions: Service Date/Time: Monday, February 27, 2017 20:36 - CONCLUSION: 1. Mildly dilated left renal collecting system. Kidneys normal in size. Trace free fluid. Ruy Hussein MD Brain MRI 02/25/17 0000 Signed Impressions: Service Date/Time: Saturday, February 25, 2017 12:37 - CONCLUSION: Atrophy, periventricular changes without evidence for acute infarction. Nasir Mack MD FACR Head CT 02/23/17 0000 Signed Impressions: Service Date/Time: Thursday, February 23, 2017 07:38 - CONCLUSION: No significant change has occurred. Maximus Pavon MD Objective Remarks GENERAL: This is a malnourished, male, alert and responsive. Compliant with directions,intermittently conversation/ words incomprehensible SKIN: Warm and dry. Noted gauze dressing right forearm HEAD: Atraumatic. Normocephalic. EYES: Pupils equal and round. No scleral icterus. No injection or drainage. ENT: No nasal bleeding or discharge. Mucous membranes pink and moist. NECK: Trachea midline. No JVD. CARDIOVASCULAR: Normal rate, regular rhythm. RESPIRATORY: No accessory muscle use. Clear to auscultation. Breath sounds equal bilaterally. Nasal cannula@3LPM GASTROINTESTINAL: Abdomen soft, non-tender, nondistended. No guarding. MUSCULOSKELETAL: Extremities without clubbing, cyanosis, or edema. No obvious deformities. Right forearm dressing, noted cellulitis NEUROLOGICAL: GCS 14. Confused, confabulations, incomprehensible words intermittently. Compliant to follow commands. Moves extremities 4. Motor strength 4/5 B/L extremities. Intention tremors noted. Date of Insertion: Feb 23, 2017 A/P Assessment and Plan Neurologic: EtOH withdrawal Polysubstance abuse Altered mental status Polyneuropathy of critical illness Neurochecks per ICU protocol Neurology following-Dr. Wayne Continued monitoring for signs of withdrawal-patient currently on CIWA protocol , discontinue concern for oversedation with Ativan, patient has been admitted approximately 8 days, with acute phase of alcohol withdrawal most likely ended. Ativan 1 mg PRN q 3 hrs added. Patient with noted baseline intention / essential tremors. Librium 50mg TID Seizure precautions Continue MVI, noted thiamine level supratherapeutic F/U ammonia level Continue OT, and PT- currently patient unable to perform ADLs Psychiatry consulted-complete evaluation to determine adequacy for self-care Discontinue soft wrist restraints Respiratory: Possible CO2 narcosis-resolved 03/02 ABG- 7.25/42/93/18/-8-mixed acidosis Maintain O2 sat greater than 92%-patient currently on 3 L nasal cannula Incentive spirometry-encourage use Obtain CXR Cardiovascular: Hypertension Continue antihypertensive meds as scheduled Maintain MAP > 65 mmHG Renal: Nephrology following Dr. Martinez -- Strict I/Os FEN/GI: Mild protein calorie malnutrition Monitor LFT- AST still elevated 63->61. Continue lactulose, recommend twice a day dosing Sodium bicarbonate infusion- Management per nephrology Electrolyte replacement per ICU protocol Resume regular diet, Boost supplemental shakes added with meals Albumin level 2.2 Heme/ID: Cellulitis right forearm Monitor CBC Continue antibiotics Monitor INR Endocrine: Glucose monitoring per ICU protocol -- SSI Prophylaxis: GI Prophylaxis Pepcid DVT Prophylaxis -- SCDs Lines: Peripheral IVs providing adequate access at this time Dispo: The patient is awake and alert, compliant with instructions. The patient remains confused with confabulations as well as inappropriate and incomprehensible use of words. The patient is noted to have essential tremors, concern for ability to self-care. Noted acute/peak phase of alcohol withdrawal which is normally 72 hours should have resolved at this point, the patient is noted baseline tremors may be possibly defined as impending seizure activity and patient provided frequent dosing of Ativan. Ativan dosing now provided as a PRN, with seizure precautions in place. The patient has been hospitalized for approximately 8 days. Psychiatry consulted for complete evaluation for disposition the patient has inability to provide self-care at this time. Social work has also been consulted for disposition post discharge. Level 2 Discussed with JOB HONER at bedside. The patient has a improved from a respiratory standpoint, maintaining his airway adequately. The patient is now alert and responsive. Critical care medicine will sign off now. Case discussed with Dr. Anderson Matt.Thank you for allowing me to participate in the care of this patient. Physician Edie De La Fuente MD Mar 03, 2017 09:12
[2017-03-03] MEDS: HEPARIN SODIUM - SQ 10,000 UNITS/ML VIAL SQ SCH ×2 (11:17→22:35)
--- NOTE | 2017-03-03 11:17 | PD.PSY.CON ---
Provisional Diagnosis Admission Date Feb 23, 2017 at 10:04 [place]. Altered mental status, delirium r 41.0, polysubstance abuse f 19.10, long history of alcohol abuse History of Present Illness Service Psychiatry Consult Requested By Attending David. Reason for Consult Assessment Primary Care Physician Unknown HPI Patient is a 57-year-old thin cachectic appearing white male who is found homeless in the neighborhood brought to the ED with a blood sugar level of 40 urine toxicology positive for cocaine and benzodiazepines, negative for alcohol. Upon review of EMR patient's had multiple ED visits with varying levels of alcohol intoxication ranging into the 2 to 300s going back to 2001. He has been seen at least twice over the years by psychiatry for alcohol- related behavioral issues. Patient discussed with staff nurse prior to seeing patient patient seen in his room soft restraints are released. He is awake alert to my presence, he does answer questions slowly with a marked confusion on his face. He is disoriented to place time situation and date. He does denies suicidality he does deny voices or visions. However he does know his birthday. He has no recollection of events that led to this hospitalization. However staff does state they see some mild improvement in his cognitive ability today. In any event at the present time it appears patient's altered mental status, perhaps delirium he showing some mild resolution. I agree with neurology that she be further supportive care for this patient in observation to assess whenever further improvement might develop. He is not at this time a candidate for admission to the psychiatric unit. He may possibly benefit from extended care facility or rehabilitation type facility. Though I think that decision needs to be referred to a later date. At this time I have no specific recommendations for medications except as noted above with the use of benzodiazepines being judicious. Thanks for consult I will follow on a as needed basis Review of Systems ROS Limitations: Clinical Condition, Altered Mental Status Past Family Social History Coded Allergies: No Known Allergies (Verified , 02/09/17) Past Medical History Please see MedSurg assessments Active Scripts Folic Acid-B12-B6 (Foltabs) 0.8-115-10 Mg Tab, 1 TAB PO DAILY for Nutritional Supplement, #30 TAB 0 Refills Prov:Merna Millard DO 02/13/17 Thiamine HCl (Gnp Vitamin B-1) 100 Mg Tab, 100 MG PO DAILY for VITAMIN, #30 TAB Prov:Merna Millard DO 02/13/17 Prednisone (Prednisone) 20 Mg Tab, 20 MG PO BID for COPD, #10 TAB Prov:Merna Millard DO 02/13/17 Budesonide-Formoterol Inh (Symbicort Inh) 160-4.5 Mcg/Act Aero, 2 PUFF INH Q12HR for COPD for 30 Days, INHALER 3 Refills Prov:Merna Millard DO 02/13/17 Diazepam (Valium) 5 Mg Tab, 5 MG PO Q6HR Y for WITHDRAWAL SYMPTOMS, #20 TAB Prov:Merna Millard DO 02/13/17 Metronidazole (Flagyl) 500 Mg Tab, 500 MG PO Q8HR for Infection, #15 TAB Prov:Merna Millard 02/13/17 Levofloxacin (Levaquin) 750 Mg Tablet, 750 MG PO DAILY@1200 for Infection, #5 TAB Prov:Merna Millard 02/13/17 Reported Medications Hydrocodone-Acetaminophen (Lortab) 7.5-325 Mg Tab, 1 TAB PO Q4H Y for PAIN, TAB 0 Refills 02/09/17 Current Medications Medications (Trade) Dose Ordered Sig/Veronika Route Start Time Stop Time Status Last Admin (NS Flush) 2 ml UNSCH PRN IV FLUSH 02/23/17 10:00 (NS Flush) 2 ml BID IV FLUSH 02/23/17 21:00 03/02/17 21:20 (Zofran Inj) 4 mg Q6H PRN IV 02/23/17 10:00 (Catapres) 0.1 mg Q6H PRN PO 02/23/17 10:00 02/27/17 08:24 (Heparin Inj) 5,000 units Q12H SQ 02/23/17 11:00 03/02/17 21:21 (D50w (Vial) Inj) 50 ml UNSCH PRN IV 02/23/17 10:15 (Glucagon Inj) 1 mg UNSCH PRN OTHER 02/23/17 10:15 (Trandate Inj) 10 mg Q4H PRN IV PUSH 02/24/17 18:15 03/03/17 02:20 Multivitamins 10 ml/Thiamine HCl 100 mg/Folic Acid 1 mg/Sodium Chloride 511.2 ml @ 125 mls/hr DAILY IV 02/25/17 09:00 03/03/17 08:46 (Lactulose Liq) 30 ml QID PO 02/26/17 09:00 03/01/17 22:49 (Lopressor) 25 mg Q12HR PO 02/28/17 21:00 03/03/17 08:34 Azithromycin 500 mg/Sodium Chloride 250 ml @ 250 mls/hr Q24H IV 03/02/17 13:00 03/02/17 14:57 Piperacillin Sod/ Tazobactam Sod 50 ml @ 100 mls/hr Q6H IV 03/02/17 12:00 03/03/17 05:55 (SoluMEDROL INJ) 40 mg Q12H IV PUSH 03/02/17 13:00 03/03/17 00:16 (Duoneb Neb) 1 ampule Q4HR NEB NEB 03/02/17 14:00 03/03/17 08:02 Sodium Bicarbonate 100 meq/Dextrose 1,100 ml @ 70 mls/hr [id number] IV 03/02/17 12:00 03/03/17 08:34 (Protonix Inj) 40 mg Q12HR IV PUSH 03/02/17 12:15 03/03/17 08:34 (Ativan Inj) 1 mg Q3H PRN IV PUSH 03/02/17 18:30 (Librium) 50 mg Q8H PO 03/03/17 09:00 03/03/17 09:11 (Haldol Inj) 2 mg Q15M PRN IM 03/02/17 22:45 (Romazicon Inj) 0.2 mg Q1M PRN IV PUSH 03/02/17 22:45 Family History Unknown at this time due to patient's altered mental status Social History Patient appears homeless chronic alcohol abuse and polysubstance abuse Patient's Strengths (min. 2) Patient appears to be a survivor. I will access healthcare Physical Exam Please see MedSur assessments Vital Signs Vital Signs Date Time Temp Pulse Resp B/P (MAP) Pulse Ox O2 Delivery O2 Flow Rate FiO2 03/03/17 08:02 95 21 03/03/17 07:31 86 03/03/17 07:31 98.0 20 146/95 (112) Manual Cuff/Auscultation 03/03/17 07:29 Nasal Cannula 2.00 I/O 03/03/17 03/03/17 03/04/17 08:00 16:00 00:00 Intake Total 1530 ml Output Total 1400 ml Balance 130 ml Lab Results Test 03/02/17 11:50 03/02/17 14:28 03/02/17 17:38 03/03/17 05:45 Stool C. difficile Toxin (PCR) NEGATIVE Stl C. difficile Toxin Epiderm 027 PRESUMPTIVE NEGATIVE Blood Gas Puncture Site I.V. LT RADIAL Blood Gas Patient Temperature 98.6 98.6 Venous Blood pH 7.23 Venous Blood Partial Pressure CO2 46 mmHg Venous Blood Partial Pressure O2 48 mmHg Venous Blood HCO3 19 mmol/L Venous Blood Oxygen Saturation 74 % Venous Blood Oxygen Content 12.9 Vol % Venous Blood Base Excess -7.3 mmol/L Oxygen Delivery Device NASAL CANNULA NASAL CANNULA Blood Gas Liter Flow 3 L/M 6 L/M Blood Gas HCO3 18 mmol/L Blood Gas Base Excess -8.0 mmol/L Blood Gas Oxygen Saturation 93 % Arterial Blood pH 7.25 Arterial Blood Partial Pressure CO2 42 mmHg Arterial Blood Partial Pressure O2 93 mmHg Arterial Blood Oxygen Content 15.5 Vol % Arterial Blood Carboxyhemoglobin 1.8 % Arterial Blood Methemoglobin 1.0 % Blood Gas Hemoglobin 11.7 G/DL White Blood Count 6.1 TH/MM3 Red Blood Count 3.49 MIL/MM3 Hemoglobin 12.2 GM/DL Hematocrit 36.6 % Mean Corpuscular Volume 105.0 FL Mean Corpuscular Hemoglobin 34.8 PG Mean Corpuscular Hemoglobin Concent 33.2 % Red Cell Distribution Width 13.9 % Platelet Count 124 TH/MM3 Mean Platelet Volume 9.3 FL Neutrophils (%) (Auto) 86.6 % Lymphocytes (%) (Auto) 9.9 % Monocytes (%) (Auto) 3.2 % Eosinophils (%) (Auto) 0.0 % Basophils (%) (Auto) 0.3 % Neutrophils # (Auto) 5.3 TH/MM3 Lymphocytes # (Auto) 0.6 TH/MM3 Monocytes # (Auto) 0.2 TH/MM3 Eosinophils # (Auto) 0.0 TH/MM3 Basophils # (Auto) 0.0 TH/MM3 CBC Comment DIFF FINAL Differential Comment Prothrombin Time 11.6 SEC Prothromb Time International Ratio 1.0 RATIO Blood Urea Nitrogen 22 MG/DL Creatinine 3.97 MG/DL Random Glucose 109 MG/DL Total Protein 6.7 GM/DL Albumin 2.2 GM/DL Calcium Level 7.6 MG/DL Alkaline Phosphatase 93 U/L Aspartate Amino Transf (AST/SGOT) 61 U/L Alanine Aminotransferase (ALT/SGPT) 45 U/L Total Bilirubin 0.7 MG/DL Sodium Level 137 MEQ/L Potassium Level 3.6 MEQ/L Chloride Level 103 MEQ/L Carbon Dioxide Level 25.2 MEQ/L Anion Gap 9 MEQ/L Estimat Glomerular Filtration Rate 16 ML/MIN Date/Time Source Procedure Growth Status 03/02/17 10:56 Blood Peripheral Aerobic Blood Culture Pending Received 03/02/17 10:56 Blood Peripheral Anaerobic Blood Culture Pending Received 03/02/17 11:50 Stool Stool Stool Occult Blood (LILLY) - Final HEMOCCULT NEGATIVE Complete 03/02/17 09:20 Urine Catheterized Urine Urine Culture Pending Received Mental Status Examination Patient thin slender cachectic up. White male confused and delirious Appearance Disheveled Speech: Hesitant, Slow, Other (very faint) Orientation: Person (vaguely) Memory: Impaired (describe) Thought Process: Loose Association Thought Content: Other (markedly disorganized) Language Very poor Fund of Knowledge Very poor Hallucination Type: None (denies) Attention and Concentration: Other (very poor) Suicidal Ideation: No (denies) Previous Suicide Attempts: No (unknown at this time) Homicidal Ideation: No Previous Homicide Attempts: No (denies) Insight: Poor Judgment: Poor Affect: Other (decreased range intensity) Mood: Other (restricted) Motor Activity: Abnormal gait-specify (patient in bed unable to ascertain) Assessment & Plan Problem List: (1) Altered mental status ICD Codes: R41.82 - Altered mental status, unspecified Status: Acute (2) Polysubstance abuse ICD Codes: F19.10 - Other psychoactive substance abuse, uncomplicated Status: Acute Assessment & Plan Estimated LOS: days patient remains with significant altered mental status, perhaps a delirium that may be superimposed on some mild dementing process secondary to his severe chronic alcoholism. For now I would agree with neurology continue supportive treatment. Observe I would be judicious with the benzodiazepines. Also at this time for patient is not a candidate for [facility], there may benefit from some type of extended care facility for inpatient rehabilitation facility. We'll follow on a when necessary basis Discharge Planning See above Problem Qualifiers (1) Altered mental status: Qualified Codes: R41.0 - Disorientation, unspecified Kilo Gamez MD Mar 03, 2017 11:17
[2017-03-03] MEDS: AZITHROMYCIN INJ 500 MG in SODIUM CHLOR 0.9% 250 ML INJ 250 ML IV SCH (13:08)
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
--- NOTE | 2017-03-03 16:44 | HHI.NPPN ---
Subjective History of Present Illness 57-year-old male with the alcohol withdrawal, altered mental status, acute renal failure Additional Remarks transfer due to AMS SOB Objective Data Data 03/03/17 03/04/17 18:59 06:59 Intake Total 50 ml Balance 50 ml IV Total 50 ml Vital Signs Date Time Temp Pulse Resp B/P (MAP) Pulse Ox O2 Delivery O2 Flow Rate FiO2 03/03/17 15:10 98.6 110 20 164/57 (92) 95 03/03/17 15:10 110 03/03/17 15:09 95 Room Air 03/03/17 11:09 108 03/03/17 11:09 95 Room Air 03/03/17 11:06 98.3 108 20 153/92 (112) 98 03/03/17 08:02 95 21 03/03/17 07:31 86 03/03/17 07:31 98.0 86 20 146/95 (112) 98 Manual Cuff/Auscultation 03/03/17 07:29 98 Nasal Cannula 2.00 03/03/17 04:59 98 Nasal Cannula 2.00 03/03/17 03:00 68 03/03/17 03:00 98.0 65 18 164/94 (117) 99 03/03/17 03:00 99 Nasal Cannula 3.00 03/02/17 23:00 74 03/02/17 23:00 99 Nasal Cannula 4.00 03/02/17 23:00 97.6 77 18 122/80 (94) 99 03/02/17 19:00 99 Nasal Cannula 6.00 03/02/17 19:00 98.5 79 18 135/94 (108) 99 03/02/17 19:00 90 03/02/17 17:05 97 Nasal Cannula 6.00 03/02/17 16:45 94 Nasal Cannula 6.00 03/02/17 16:45 88 03/02/17 16:45 97.5 92 28 143/102 (116) 95 -: 03/03/17 0545 03/03/17 0545 Physical Exam General Appearance: Malnourished Eyes Eye Exam: Pupils Equal Neck Neck Exam: Neck Supple Pulmonary Resp Exam: Crackles, Rhonchi, Diminished Breath Sounds Cardiology CV Exam: Regular, Normal Sinus Rhythm Gastrointestinal/Abdomen GI Exam: Soft, Non-Tender, Bowel Sounds Present Extremeties Extremities Exam: No Edema Assessment/Plan Problem List: (1) SAQIB (acute kidney injury) ICD Codes: N17.9 - Acute kidney failure, unspecified Status: Acute Plan: Acute renal failure acute tubular necrosis with drug use inc UOP Cr again 3.9 Monitor BMP His urine output is maintained Creatinine went up to 3.9 (2) Alcohol withdrawal ICD Codes: F10.239 - Alcohol dependence with withdrawal, unspecified Status: Chronic Plan: Patient remained in altered mental status (3) Hypertension ICD Codes: I10 - Essential (primary) hypertension Status: Chronic Plan: Patient's blood pressure was labile continue to monitor Problem Qualifiers (1) Alcohol withdrawal: Qualified Codes: F10.231 - Alcohol dependence with withdrawal delirium (2) Hypertension: Qualified Codes: I10 - Essential (primary) hypertension Daryl Martinez MD Mar 03, 2017 16:44
[2017-03-03] MEDS: LORazepam 2 MG/ML VIAL IV PUSH PRN (22:34)
[2017-03-04] VITALS (7 sets, daily range): BP systolic 112–187; BP diastolic 59–98; PULSE 70–101; RESP 18–21; TEMP 96–98.4; O2SAT 94–96
[2017-03-04] MEDS: methylPREDNISolone SOD SUCC 40 MG/1 ML VIAL IV PUSH SCH ×2 (01:56→15:06)
[2017-03-04] MEDS: SODIUM BICARBONATE 8.4% INJ 100 MEQ in DEXTROSE 5% IN WATE 1000ML INJ 1,000 ML IV SCH ×4 (01:57→10:34)
[2017-03-04] MEDS: LORazepam 2 MG/ML VIAL IV PUSH PRN ×2 (03:25→08:41)
[2017-03-04] MEDS: cloNIDine HCL 0.1 MG TAB PO PRN (05:55)
[2017-03-04] MEDS: PIPERACIL-TAZO 2.25 GM PREMIX 50 ML IV SCH ×4 (05:56→23:39)
[2017-03-04] MEDS: RESP: ALBUTEROL 2.5 MG/IPRATROPIUM 0.5 MG NEB (SCH) NEB ×5 (08:30→20:00)
[2017-03-04 08:38] LABS: BICARBONATE 28.4 MEQ/L (21.0-32.0); POTASSIUM 3.7 MEQ/L (3.5-5.1)
[2017-03-04] MEDS: PANTOPRAZOLE SODIUM 40 MG VIAL IV PUSH SCH ×2 (08:39→20:39)
[2017-03-04] MEDS: SODIUM CHLORIDE 0.9% FLUSH 10 ML FLUSH IV FLUSH SCH ×2 (08:39→20:39)
[2017-03-04] MEDS: LACTULOSE SYRUP 20 GM/30 ML CUP PO SCH ×4 (08:40→20:40)
[2017-03-04] MEDS: MULTIVITAMIN TAB PO SCH (08:40)
[2017-03-04] MEDS: METOPROLOL TARTRATE 25 MG TAB PO SCH (08:40)
[2017-03-04] MEDS ORDERED: chlordiazePOXIDE 25 MG CAP PO PRN ×2 (09:00→17:00)
[2017-03-04] MEDS ORDERED: chlordiazePOXIDE 25 MG CAP PO SCH (09:00)
--- NOTE | 2017-03-04 10:59 | HHI.NPPN ---
Subjective History of Present Illness 57-year-old male with the alcohol withdrawal, altered mental status, acute renal failure Additional Remarks back on floor no change Objective Data Data Vital Signs Date Time Temp Pulse Resp B/P (MAP) Pulse Ox O2 Delivery O2 Flow Rate FiO2 03/04/17 08:31 95 03/04/17 08:00 97.3 101 21 154/97 (116) 95 03/04/17 05:30 97.8 98 18 187/96 (126) 95 03/04/17 00:30 98.0 88 18 142/84 (103) 96 03/03/17 21:21 21 03/03/17 20:00 98 Room Air 03/03/17 20:00 98.0 109 24 148/95 (112) 98 03/03/17 20:00 110 03/03/17 15:10 98.6 110 20 164/57 (92) 95 03/03/17 15:10 110 03/03/17 15:09 95 Room Air 03/03/17 11:09 108 03/03/17 11:09 95 Room Air 03/03/17 11:06 98.3 108 20 153/92 (112) 98 -: 03/03/17 0545 03/04/17 0732 Physical Exam General Appearance: Malnourished Eyes Eye Exam: Pupils Equal Neck Neck Exam: Neck Supple Pulmonary Resp Exam: Crackles, Rhonchi, Diminished Breath Sounds Cardiology CV Exam: Regular, Normal Sinus Rhythm Gastrointestinal/Abdomen GI Exam: Soft, Non-Tender, Bowel Sounds Present Extremeties Extremities Exam: No Edema Assessment/Plan Problem List: (1) SAQIB (acute kidney injury) ICD Codes: N17.9 - Acute kidney failure, unspecified Status: Acute Plan: Acute renal failure acute tubular necrosis with drug use inc UOP Cr again 4 Monitor BMP His urine output is good check CT scan suspect Liver issues give albumin BP high on medications (2) Alcohol withdrawal ICD Codes: F10.239 - Alcohol dependence with withdrawal, unspecified Status: Chronic Plan: Patient remained in altered mental status (3) Hypertension ICD Codes: I10 - Essential (primary) hypertension Status: Chronic Plan: Patient's blood pressure was labile continue to monitor Problem Qualifiers (1) Alcohol withdrawal: Qualified Codes: F10.231 - Alcohol dependence with withdrawal delirium (2) Hypertension: Qualified Codes: I10 - Essential (primary) hypertension Daryl Martinez MD Mar 04, 2017 10:59
--- NOTE | 2017-03-04 11:01 | RADRPT ---
EXAM DATE/TIME: 03/04/2017 10:31 [place] COMPARISON: No previous studies available for comparison. INDICATIONS : Renal failure. ORAL CONTRAST: No oral contrast ingested. RADIATION DOSE: 17.75 CTDIvol (mGy) ; Patient positioning MEDICAL HISTORY : Hypertension. SURGICAL HISTORY : Sternum surgery. ENCOUNTER: Initial ACUITY: 1 day PAIN SCALE: Non-responsive LOCATION: abdomen TECHNIQUE: Volumetric scanning of the abdomen and pelvis was performed. Using automated exposure control and ad justment of the mA and/or kV according to patient size, radiation dose was kept as low as reasonably achievable to obtain optimal diagnostic quality images. DICOM format image data is available electro nically for review and comparison. FINDINGS: There is mild respiratory motion artifact and artifact related to patient are in position. Metallic h ardware in the right arm causes beam hardening artifact. LOWER LUNGS: There are small bilateral pleural effusions, left larger than right with associated compressive atele ctasis. Severe coronary artery calcification is present. LIVER: Diffuse low density without lesion. There is no dilation of the biliary tree. No calcified gallston es. SPLEEN: The spleen has an abnormal appearance with lobulated heterogeneous density structure abutting or moi ing from the spleen and containing linear areas of calcification. This structure measures approximate ly 7.5 x 4.4 cm. PANCREAS: No acute abnormality. KIDNEYS: There is no hydronephrosis or mass. Subtle perinephric high density is present on the medial aspect o f the right kidney and extending to the upper pole where there is high density stranding. ADRENAL GLANDS: Within normal limits. VASCULAR: There is no aortic aneurysm. There is moderate atherosclerotic disease. BOWEL/MESENTERY: The stomach, small bowel, and colon demonstrate no acute abnormality. There is no free intraperitone al air or fluid. ABDOMINAL WALL: Within normal limits. RETROPERITONEUM: There is no lymphadenopathy. BLADDER: No wall thickening or mass. Small amount of air is present within the bladder lumen. REPRODUCTIVE: Within normal limits. INGUINAL: There is no lymphadenopathy or hernia. MUSCULOSKELETAL: There are degenerative changes of the lumbar spine. CONCLUSION: 1. There is no hydronephrosis or renal abnormality to explain the renal failure. However, there is prado btle high density stranding along the medial and upper pole of the right kidney. Suggest followup CT to assess for change. 2. Abnormal mass arising from or abutting the spleen in the left upper quadrant measuring up to 7.5 c m. It contains a small amount of calcification. Suggest correlating with any prior imaging study that could offer additional characterization. If none are available suggest followup imaging to confirm s tability and consider contrast enhanced CT or MRI for further characterization when patient condition permits. 3. Small bilateral pleural effusions, left larger than right, with associated compressive atelectasis . 4. Severe coronary artery calcification. Kilo Coulter MD on March 04, 2017 at 10:53 Board Certified Radiologist. This report was verified electronically.
[2017-03-04] MEDS ORDERED: HALOPERIDOL LACTATE 5 MG/ML AMP IM PRN (12:45)
--- NOTE | 2017-03-04 13:37 | HHI.FPPN ---
Subjective Remarks Mr. Guido was afebrile with intermittent tachycardia and hypertension overnight ; patient's heart rate ranged from 80s - 101 and BP ranged from 140s - 180s systolically. Per nursing staff, patient has been more awake recently but that she was concerned for agitation since he was scheduled to be taken for CT abdomen/ pelvis and several minutes. Interviewing the patient was attempted but limited due to patient's mumbled speech. After repeated questioning, patient provided a telephone number [ presumably to inform a friend/relative regarding his status]. (Robles Pollock MD, R3) Objective Vitals Vital Signs Date Time Temp Pulse Resp B/P (MAP) Pulse Ox O2 Delivery O2 Flow Rate FiO2 03/04/17 12:00 96.0 80 18 112/59 (76) 94 03/04/17 08:31 95 03/04/17 08:00 97.3 101 21 154/97 (116) 95 03/04/17 05:30 97.8 98 18 187/96 (126) 95 03/04/17 00:30 98.0 88 18 142/84 (103) 96 03/03/17 21:21 21 03/03/17 20:00 98 Room Air 03/03/17 20:00 98.0 109 24 148/95 (112) 98 03/03/17 20:00 110 03/03/17 15:10 98.6 110 20 164/57 (92) 95 03/03/17 15:10 110 03/03/17 15:09 95 Room Air I/O 03/03/17 03/03/17 03/03/17 03/04/17 03/04/17 03/04/17 06:59 14:59 22:59 06:59 14:59 22:59 Intake Total 1530 ml 50 ml 2124 ml 504 ml Output Total 1400 ml 1050 ml Balance 130 ml 50 ml 1074 ml 504 ml Intake Oral 800 ml 60 ml Oral Supplement 230 ml IV Total 1530 ml 50 ml 1094 ml 444 ml Output Urine Total 1400 ml 1050 ml # Voids 2 # Bowel Movements 0 0 1 (Robles Pollock MD, R3) Result Diagram: 03/03/17 0545 03/04/17 0732 Imaging Last Impressions Abdomen/Pelvis CT 03/04/17 0000 Signed Impressions: Service Date/Time: Saturday, March 04, 2017 10:31 - CONCLUSION: 1. There is no hydronephrosis or renal abnormality to explain the renal failure. However, there is subtle high density stranding along the medial and upper pole of the right kidney. Suggest followup CT to assess for change. 2. Abnormal mass arising from or abutting the spleen in the left upper quadrant measuring up to 7.5 cm. It contains a small amount of calcification. Suggest correlating with any prior imaging study that could offer additional characterization. If none are available suggest followup imaging to confirm stability and consider contrast enhanced CT or MRI for further characterization when patient condition permits. 3. Small bilateral pleural effusions, left larger than right, with associated compressive atelectasis. 4. Severe coronary artery calcification. Kilo Coulter MD Chest X-Ray 03/02/17 0000 Signed Impressions: Service Date/Time: Thursday, March 02, 2017 08:18 - CONCLUSION: Increasing consolidative changes left base. Nasir Mack MD FACR Renal Ultrasound 02/27/17 0000 Signed Impressions: Service Date/Time: Monday, February 27, 2017 20:36 - CONCLUSION: 1. Mildly dilated left renal collecting system. Kidneys normal in size. Trace free fluid. Ruy Hussein MD Brain MRI 02/25/17 0000 Signed Impressions: Service Date/Time: Saturday, February 25, 2017 12:37 - CONCLUSION: Atrophy, periventricular changes without evidence for acute infarction. Nasir Mack MD FACR Head CT 02/23/17 0000 Signed Impressions: Service Date/Time: Thursday, February 23, 2017 07:38 - CONCLUSION: No significant change has occurred. Maximus Pavon MD Objective Remarks GENERAL: Disheveled male, lying in bed, awake and moves limbs spontaneously, mumbles in response to questions SKIN: Bilateral upper extremities with multiple well-healing scabs; no appreciated erythema or warmth appreciated today. ENT: Pupils appeared symmetrical/3-4 mm in diameter e and were equal and reactive to light; EOM grossly intact CARDIOVASCULAR: RRR without appreciable murmurs. grossly normal perfusion. HR approximately 100 bpm. No obvious edema RESPIRATORY: normal rate; breath sounds equal/course bilaterally without wheezing GASTROINTESTINAL: Abdomen soft, non-tender, nondistended; normal bowel sounds MUSCULOSKELETAL: No cyanosis, or edema. NEURO: No focal CN defects or peripheral motor/sensory focal defects. Patient did answer questions but is difficult to understand (Robles Pollock MD, R3) Date of Insertion: Feb 23, 2017 (Robles Pollock MD, R3) A/P Assessment and Plan 57-year-old white male with past medical history of alcohol withdrawal presented to the ED with hypoglycemia and altered mental status; patient has had progressively worsening renal function and is currently being treated for renal failure and continued altered mental status (Robles Pollock MD, R3) Attending Attestation Pt. examined and case discussed with resident physicians. I have read the above note and agree with the assessment and plan as discussed with me. I was involved in all medical decision making for this patient. Aris Martinez MD (Aris Martinez MD) Problem List: (1) Altered mental status ICD Codes: R41.82 - Altered mental status, unspecified Status: Acute Plan: 03/04: Patient seems to have improved in response to decreasing sedation. 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 -Continue supportive treatment -Recommend judicious benzodiazepine usage -May benefit from some type of extended care facility -Continue occupational therapy -ST consulted -pure and thin liquids per ST when alert. Feed only when alert -Continue IVF while not having adequate intake -Seizure precautions Impression: AMS initially suspected secondary to alcoholism; persistent UDS positive for Benzos and Cocaine Brain MRI 3atrophy, periventricular changes without evidence for acute infarction Head CT on admission- no significant change EEG - Mild background slowing without epileptiform features, may be mild encephalopathic process Ammonia 20, RPR nonreactive CMP on admission with mild hyponatremia (134), transaminase elevations, calcium of 8.1 Hep panel pending Thiamine level high at 325 (2) SAQIB (acute kidney injury) ICD Codes: N17.9 - Acute kidney failure, unspecified Status: Acute Plan: 03/02-03/03- patient given Lasix 80mg IV x1 for concern for fluid overload; patient w/ 3000ml UOP 03/03- 03/04- urine output 1050ml overnight -Nephrology consulted -Suspect ATN -Increase UOP -Monitor BMP -Continue IVF with Bicarbonate (D5 w/ 2 amp bicarb at 70ml/hr) -Albumin 25 g IV every 12hrs scheduled -CT abdomen/pelvis ordered to further evaluate etiology of renal dysfunction -No hydronephrosis. Subtle high density stranding medial/upper right kidney. Abnormal mass arising from/abutting spleen LUQ measuring up to 7.5 cm with small amount of calcification Impression: Patient with SAQIB. Creatinine trended: 0.86 on admission -> 3.97 on 03/03 (has been >3 since 02/27) Suspect intrinsic cause as Cr elevation refractory to fluid supplementation, BUN /Cr ratio <20/1, and catheterized Previously on Vancomycin-> discontinued Renal US 02/27 with mild L hydronephrosis; normal kidneys No urine eosinophils Cr 41.6 Urine sodium 97 (3) PNA (pneumonia) ICD Codes: J18.9 - Pneumonia, unspecified organism Status: Acute Plan: -Continue antibiotic therapy -Azithromycin 500mg IV daily -Zosyn 2/25mg IV q6hrs -Continue Solumedrol 40mg IV BID -Continue Duonebs -Continue O2 as needed Impression: 03/02 chest x-ray with increasing consolidative changes in the left base: Patient with symptoms of cough and intermittent low O2 sats requiring NC O2 supplementation Initial blood cultures + for staph hominis; subsequently negative 02/26, 03/02 Sputum cultures not obtained Urine Legionella, strep pneumo negative (4) Atelectasis ICD Codes: J98.11 - Atelectasis Status: Acute Plan: -Chest physiotherapy -Acapella -Duo nebs every 4 hours Impression: Patient with decreased breath sounds on exam had repeat Chest x-ray that showed left lung atelectasis. Patient not using incentive spirometer. CXR 02/26 with mild LLL airspace disease and atelectasis (5) Hypertension ICD Codes: I10 - Essential (primary) hypertension Status: Chronic Plan: 03/04: SBP 140's-180's overnight -Increase Metoprolol to 50 mg BID -Will schedule Clonidine 0.2mg PO BID -Clonidine 0.1 mg by mouth every 6 hours when necessary For SBP >/= 180, DBP >/ = 100 Impression: Patient with high pressures not being resolved with Ativan. May have underlying hypertension. (6) Hypoglycemia ICD Codes: E16.2 - Hypoglycemia, unspecified Status: Resolved Plan: - Continue IVF containing dextrose supplementation Impression: [place] blood glucose in the 40s. Now euglycemic with D5 w/ Bicarb at 70ml/hr Regular accuchecks have been stable (7) Cellulitis ICD Codes: L03.90 - Cellulitis, unspecified Status: Resolved Plan: Impression: Possible cellulitis noted on admission physical exam, non- purulent. Blood cultures 02/23 showing Staph hominis hominis. Likely contaminant. Repeat blood cultures 02/26 negative to date 03/02-present, Not appreciated on exam Antibiotic history: - Zosyn IV every 6 hours, received 02/24/17, d/c'ed on 02/24/17. Patient received 3 doses. - Vancomycin IV every 12 hrs, from 02/25-02/26, d/c'ed on 02/26/17. Patient received 2 doses. - clindamycin 600 mg IV every 8 hours on 02/26 - 03/02. (8) FEN Status: Acute Plan: Fluids: gentle IVF Electrolytes: Monitor and replace as needed Nutrition: Mechanical soft diet VTE prophylaxis: Heparin 5000 units every 12 hours (Robles Pollock MD, R3) Problem Qualifiers (1) Altered mental status: Qualified Codes: R41.0 - Disorientation, unspecified (2) Hypertension: Qualified Codes: I10 - Essential (primary) hypertension (3) Cellulitis: Qualified Codes: L03.119 - Cellulitis of unspecified part of limb Robles Pollock MD, R3 Mar 04, 2017 13:37 Aris Martinez MD Mar 04, 2017 17:29
[2017-03-04] MEDS: cloNIDine HCL 0.2 MG TAB PO SCH ×2 (15:11→20:39)
[2017-03-04] MEDS: METOPROLOL TARTRATE 50 MG TAB PO SCH ×2 (15:11→20:39)
[2017-03-04] MEDS: ALBUMIN HUMAN 25% 25 GM/100 ML BAGP IV SCH ×2 (15:27→23:17)
[2017-03-04] MEDS: HEPARIN SODIUM - SQ 10,000 UNITS/ML VIAL SQ SCH ×2 (15:27→23:17)
[2017-03-04] MEDS: AZITHROMYCIN INJ 500 MG in SODIUM CHLOR 0.9% 250 ML INJ 250 ML IV SCH (15:28)
[2017-03-05] VITALS (11 sets, daily range): BP systolic 120–178; BP diastolic 79–107; PULSE 70–103; RESP 17–19; TEMP 96.2–98; O2SAT 88–99
[2017-03-05] MEDS: methylPREDNISolone SOD SUCC 40 MG/1 ML VIAL IV PUSH SCH ×3 (00:31→23:50)
[2017-03-05] MEDS: SODIUM BICARBONATE 8.4% INJ 100 MEQ in DEXTROSE 5% IN WATE 1000ML INJ 1,000 ML IV SCH ×4 (01:39→18:45)
[2017-03-05] MEDS: RESP: ALBUTEROL 2.5 MG/IPRATROPIUM 0.5 MG NEB (SCH) NEB ×8 (04:00→19:11)
[2017-03-05] MEDS: PIPERACIL-TAZO 2.25 GM PREMIX 50 ML IV SCH ×4 (06:20→23:20)
[2017-03-05 06:21] LABS: ALT (GPT) 54 U/L (12-78); ANION GAP 9 MEQ/L (5-15); AST (GOT) 70 U/L (15-37); BICARBONATE 29.9 MEQ/L (21.0-32.0); BLOOD UREA NITROGEN 31 MG/DL (7-18); CHLORIDE 103 MEQ/L (98-107); GLOMERULAR FILTRATION RATE 16 ML/MIN (>89); POTASSIUM 3.6 MEQ/L (3.5-5.1); SODIUM (NA) 142 MEQ/L (136-145)
[2017-03-05 06:23] LABS: ALKALINE PHOSPHATASE 59 U/L (45-117); TOTAL BILIRUBIN ADULT 0.6 MG/DL (0.2-1.0)
[2017-03-05 06:26] LABS: AUTOMATED NEUTROPHIL # 5.1 TH/MM3 (1.8-7.7); BASOPHIL % 0.1 % (0.0-2.0); HEMATOCRIT 32.1 % (39.0-51.0); HEMO FLAGS DIFF FINAL; LYMPH % 11.3 % (9.0-44.0); LYMPHOCYTE # 0.7 TH/MM3 (1.0-4.8); MEAN CELL VOLUME 104.4 FL (80.0-100.0); MEAN CORPUSCULAR HEMOGLOBIN 35.5 PG (27.0-34.0); MONO % 5.6 % (0.0-8.0); PLATELET COUNT 115 TH/MM3 (150-450); RED BLOOD COUNT 3.08 MIL/MM3 (4.50-5.90); RED CELL DISTRIBUTION WIDTH 14.1 % (11.6-17.2); WHITE BLOOD COUNT 6.2 TH/MM3 (4.0-11.0)
--- NOTE | 2017-03-05 08:48 | HHI.FPPN ---
Subjective Remarks No acute events overnight. Patient remains intermittently tachycardic and hypertensive and hypoxic. Patient's speech is also still difficult to understand. However, I understand him to say that he is in no pain, going to the bathroom well, breathing okay. (Anderson Matt MD R2) Objective Vitals Vital Signs Date Time Temp Pulse Resp B/P (MAP) Pulse Ox O2 Delivery O2 Flow Rate FiO2 03/05/17 08:20 88 21 03/05/17 04:46 94 Nasal Cannula 1.50 03/05/17 04:06 97.9 86 18 176/98 (124) 94 03/05/17 00:00 98.0 70 18 155/94 (114) 93 03/04/17 19:52 98.4 70 19 152/98 (116) 95 03/04/17 16:00 96.2 96 19 136/81 (99) 94 03/04/17 12:00 96.0 80 18 112/59 (76) 94 I/O 03/04/17 03/04/17 03/04/17 03/05/17 03/05/17 03/05/17 07:00 15:00 23:00 07:00 15:00 23:00 Intake Total 504 ml 480 ml 120 ml 120 ml Output Total 400 ml Balance 504 ml 80 ml 120 ml 120 ml Intake Oral 60 ml 480 ml 120 ml 120 ml IV Total 444 ml Output Urine Total 400 ml # Voids 2 1 1 3 # Bowel Movements 1 2 2 3 (Anderson Matt MD R2) Result Diagram: 03/05/17 0526 03/05/17 0526 Imaging Last Impressions Abdomen/Pelvis CT 03/04/17 0000 Signed Impressions: Service Date/Time: Saturday, March 04, 2017 10:31 - CONCLUSION: 1. There is no hydronephrosis or renal abnormality to explain the renal failure. However, there is subtle high density stranding along the medial and upper pole of the right kidney. Suggest followup CT to assess for change. 2. Abnormal mass arising from or abutting the spleen in the left upper quadrant measuring up to 7.5 cm. It contains a small amount of calcification. Suggest correlating with any prior imaging study that could offer additional characterization. If none are available suggest followup imaging to confirm stability and consider contrast enhanced CT or MRI for further characterization when patient condition permits. 3. Small bilateral pleural effusions, left larger than right, with associated compressive atelectasis. 4. Severe coronary artery calcification. Kilo Coulter MD Chest X-Ray 03/02/17 Signed Impressions: Service Date/Time: Thursday, March 02, 2017 08:18 - CONCLUSION: Increasing consolidative changes left base. Nasir Mack MD FACR Renal Ultrasound 02/27/17 Signed Impressions: Service Date/Time: Monday, February 27, 2017 20:36 - CONCLUSION: 1. Mildly dilated left renal collecting system. Kidneys normal in size. Trace free fluid. Ruy Hussein MD Brain MRI 02/25/17 Signed Impressions: Service Date/Time: Saturday, February 25, 2017 12:37 - CONCLUSION: Atrophy, periventricular changes without evidence for acute infarction. Nasir Mack MD FACR Head CT 02/23/17 Signed Impressions: Service Date/Time: Thursday, February 23, 2017 07:38 - CONCLUSION: No significant change has occurred. Maximus Pavon MD Objective Remarks GENERAL: male, lying in bed, awake and moves limbs spontaneously despite restraints, whispers and mumbles in response to questions, tremulous SKIN: Bilateral upper extremities with multiple well-healing scabs; no appreciated erythema or warmth appreciated today. HEENT: Pupils grossly symmetrical; EOM grossly intact; dry MM CARDIOVASCULAR: RRR without appreciable murmurs. grossly normal perfusion. No edema RESPIRATORY: normal rate; coarse breath sounds bilaterally, likely from upper airway, without wheezing GASTROINTESTINAL: Abdomen soft, non-tender, nondistended; + bowel sounds MUSCULOSKELETAL: No cyanosis or edema. NEURO: No focal CN defects or peripheral motor/sensory focal defects. Patient did answer questions but is difficult to understand. Patient remains tremulous. PSYCH: Seems anxious, but good eye contact; patient seems cordial with male staff members; anxious and insulting with female staff members (Anderson Matt MD R2) Date of Insertion: Feb 23, 2017 (Anderson Matt MD R2) A/P Assessment and Plan 57-year-old white male with past medical history of alcohol withdrawal presented to the ED with hypoglycemia and altered mental status; patient has had progressively worsening renal function and is currently being treated for renal failure and continued altered mental status (Anderson Matt MD R2) Attending Attestation Pt. examined and case discussed with resident physicians. I have read the above note and agree with the assessment and plan as discussed with me. I was involved in all medical decision making for this patient. Aris Martinez MD (Aris Martinez MD) Problem List: (1) Altered mental status ICD Codes: R41.82 - Altered mental status, unspecified Status: Acute Plan: 03/05: Patient seems to have improved in response to decreasing sedation. Patient continues to be difficult to understand. 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 -Continue supportive treatment -Recommend judicious benzodiazepine usage -May benefit from some type of extended care facility -Occupational therapy recommended OT at rehabilitation (PT recommended OT) -ST consulted -regular and thin liquids per ST. patient is dependent with total help required. -Continue IVF while not having adequate intake -Seizure precautions Impression: AMS initially suspected secondary to alcoholism; persistent UDS positive for Benzos and Cocaine Brain MRI on 02/25- atrophy, periventricular changes without evidence for acute infarction Head CT on admission- no significant change EEG- Mild background slowing without epileptiform features, may be mild encephalopathic process Ammonia 20, RPR nonreactive CMP on admission with mild hyponatremia (134), transaminase elevations, calcium of 8.1 Hep panel pending Thiamine level high at 325 (2) SAQIB (acute kidney injury) ICD Codes: N17.9 - Acute kidney failure, unspecified Status: Acute Plan: -Nephrology consulted -Suspect ATN -Increase UOP -Monitor BMP -Continue IVF with Bicarbonate (D5 w/ 2 amp bicarb at 70ml/hr) -Albumin 25 g IV every 12hrs scheduled -CT abdomen/pelvis ordered to further evaluate etiology of renal dysfunction -No hydronephrosis. Subtle high density stranding medial/upper right kidney. Abnormal mass arising from/abutting spleen LUQ measuring up to 7.5 cm with small amount of calcification Impression: Patient with SAQIB. Creatinine trended: 0.86 on admission -> 3.97 on 03/03 (has been >3 since 02/27) Suspect intrinsic cause as Cr elevation refractory to fluid supplementation, BUN /Cr ratio <20/1, and catheterized Previously on Vancomycin-> discontinued Renal US 02/27 with mild L hydronephrosis; normal kidneys No urine eosinophils Cr 41.6 Urine sodium 97 (3) PNA (pneumonia) ICD Codes: J18.9 - Pneumonia, unspecified organism Status: Acute Plan: -Continue antibiotic therapy from 03/02 - present -Azithromycin 500mg IV daily -Zosyn 2/25mg IV q6hrs -Continue Solumedrol 40mg IV BID -Continue Duonebs -Continue O2 as needed Impression: 03/02 chest x-ray with increasing consolidative changes in the left base: Patient with symptoms of cough and intermittent low O2 sats requiring NC O2 supplementation Initial blood cultures + for staph hominis; subsequently negative 02/26, 03/02 Sputum cultures not obtained Urine Legionella, strep pneumo negative (4) Atelectasis ICD Codes: J98.11 - Atelectasis Status: Acute Plan: -Chest physiotherapy -Acapella, incentive spirometer -Duo nebs every 4 hours Impression: Patient with decreased breath sounds on exam had repeat Chest x-ray that showed left lung atelectasis. Patient not using incentive spirometer. CXR 02/26 with mild LLL airspace disease and atelectasis (5) Hypertension ICD Codes: I10 - Essential (primary) hypertension Status: Chronic Plan: 03/04: SBP 140's-180's overnight -Continue Metoprolol to 50 mg BID -Increased Clonidine 0.2mg PO to TID -Clonidine 0.1 mg by mouth every 6 hours when necessary For SBP >/= 180, DBP >/ = 100 Impression: Patient with high pressures not being resolved with Ativan. May have underlying hypertension. (6) FEN Status: Acute Plan: Fluids: gentle IVF Electrolytes: Monitor and replace as needed Nutrition: Regular basic diet thin liquids and boost shakes as supplement VTE prophylaxis: Heparin 5000 units every 12 hours (Anderson Matt MD R2) Problem Qualifiers (1) Altered mental status: Qualified Codes: R41.0 - Disorientation, unspecified (2) Hypertension: Qualified Codes: I10 - Essential (primary) hypertension Anderson Matt MD R2 Mar 05, 2017 08:48 Aris Martinez MD Mar 07, 2017 21:46
[2017-03-05] MEDS: METOPROLOL TARTRATE 50 MG TAB PO SCH ×3 (09:34→21:39)
[2017-03-05] MEDS: MULTIVITAMIN TAB PO SCH ×2 (09:34→09:39)
[2017-03-05] MEDS: LACTULOSE SYRUP 20 GM/30 ML CUP PO SCH ×4 (09:37→21:00)
[2017-03-05] MEDS: SODIUM CHLORIDE 0.9% FLUSH 10 ML FLUSH IV FLUSH SCH ×2 (09:38→23:20)
[2017-03-05] MEDS: cloNIDine HCL 0.2 MG TAB PO SCH ×3 (09:39→17:57)
[2017-03-05] MEDS: PANTOPRAZOLE SODIUM 40 MG VIAL IV PUSH SCH ×2 (09:39→23:20)
[2017-03-05] MEDS ORDERED: chlordiazePOXIDE 25 MG CAP PO ONE (10:30)
[2017-03-05] MEDS: HEPARIN SODIUM - SQ 10,000 UNITS/ML VIAL SQ SCH ×2 (11:35→23:19)
[2017-03-05] MEDS: ALBUMIN HUMAN 25% 25 GM/100 ML BAGP IV SCH ×2 (11:35→23:49)
[2017-03-05] MEDS: AZITHROMYCIN INJ 500 MG in SODIUM CHLOR 0.9% 250 ML INJ 250 ML IV SCH (13:56)
[2017-03-05] MEDS: cloNIDine HCL 0.1 MG TAB PO PRN ×2 (16:15→23:49)
--- NOTE | 2017-03-05 17:46 | HHI.NPPN ---
Subjective History of Present Illness 57-year-old male with the alcohol withdrawal, altered mental status, acute renal failure Additional Remarks no change in clinical picture c/o Left shoulder pain Objective Data Data 03/05/17 03/06/17 19:00 07:00 Intake Total 640 ml Balance 640 ml Intake Oral 240 ml IV Total 400 ml # Voids 4 # Bowel Movements 4 Vital Signs Date Time Temp Pulse Resp B/P (MAP) Pulse Ox O2 Delivery O2 Flow Rate FiO2 03/05/17 16:00 96.2 86 17 166/107 (126) 99 03/05/17 15:33 96 2.00 03/05/17 12:00 97.0 95 17 134/84 (101) 96 03/05/17 10:25 103 150/96 (114) 03/05/17 09:43 Nasal Cannula 03/05/17 08:20 88 21 03/05/17 08:00 96.2 89 17 178/107 (130) 93 03/05/17 04:46 94 Nasal Cannula 1.50 03/05/17 04:06 97.9 86 18 176/98 (124) 94 03/05/17 00:00 98.0 70 18 155/94 (114) 93 03/04/17 19:52 98.4 70 19 152/98 (116) 95 -: 03/05/17 0526 03/05/17 0526 Physical Exam General Appearance: Malnourished Eyes Eye Exam: Pupils Equal Neck Neck Exam: Neck Supple Pulmonary Resp Exam: Crackles, Rhonchi, Diminished Breath Sounds Cardiology CV Exam: Regular, Normal Sinus Rhythm Gastrointestinal/Abdomen GI Exam: Soft, Non-Tender, Bowel Sounds Present Musculoskeletal MS Exam: Unable to Ambulate MS Remarks left shoulder sub laxation ? dislocated Extremeties Extremities Exam: No Edema Assessment/Plan Problem List: (1) SAQIB (acute kidney injury) ICD Codes: N17.9 - Acute kidney failure, unspecified Status: Acute Plan: Acute renal failure acute tubular necrosis with drug use inc UOP Cr 3.9 has ATN refractory to fluids, possible vanco induced pt has possible dislocated left shoulder per Nurse will get Xray Pl consult ortho Monitor BMP His urine output is good CT scan reviewed Subtle high density stranding medial/upper right kidney. Abnormal mass arising from/abutting spleen LUQ measuring up to 7.5 cm with small amount of calcification BP high on medications (2) Alcohol withdrawal ICD Codes: F10.239 - Alcohol dependence with withdrawal, unspecified Status: Chronic Plan: Patient remained in altered mental status (3) Hypertension ICD Codes: I10 - Essential (primary) hypertension Status: Chronic Plan: Patient's blood pressure was labile continue to monitor Problem Qualifiers (1) Alcohol withdrawal: Qualified Codes: F10.231 - Alcohol dependence with withdrawal delirium (2) Hypertension: Qualified Codes: I10 - Essential (primary) hypertension Daryl Martinez MD Mar 05, 2017 17:46
[2017-03-05] MEDS ORDERED: QUEtiapine FUMARATE 25 MG TAB PO SCH (21:00)
--- NOTE | 2017-03-05 21:43 | RADRPT ---
EXAM DATE/TIME: 03/05/2017 20:57 [facility] COMPARISON: No previous studies available for comparison. INDICATIONS : Left shoulder pain, possible dislocation. MEDICAL HISTORY : Unobtainable. SURGICAL HISTORY : Unobtainable. ENCOUNTER: Initial ACUITY: 1 day PAIN SCORE: 10/10 LOCATION: Left shoulder. FINDINGS: Multiple view examination of the left shoulder demonstrates no evidence of fracture or dislocation. The glenohumeral and acromioclavicular joints are maintained. There is normal range of motion betwee n internal and external rotation. Bony mineralization is normal. CONCLUSION: No acute disease. Rick Sanford MD on March 05, 2017 at 21:40 Board Certified Radiologist. This report was verified electronically.
[2017-03-06] VITALS (12 sets, daily range): BP systolic 162–206; BP diastolic 90–134; PULSE 51–87; RESP 16–20; TEMP 95.9–98.5; O2SAT 91–100
[2017-03-06] MEDS: RESP: ALBUTEROL 2.5 MG/IPRATROPIUM 0.5 MG NEB (SCH) NEB ×7 (01:17→19:28)
[2017-03-06] MEDS ORDERED: hydrALAZINE HCL 10 MG TAB PO PRN ×2 (03:00→21:00)
[2017-03-06] MEDS: PIPERACIL-TAZO 2.25 GM PREMIX 50 ML IV SCH (06:31)
[2017-03-06] MEDS: MULTIVITAMIN TAB PO SCH (07:55)
[2017-03-06] MEDS: METOPROLOL TARTRATE 50 MG TAB PO SCH ×2 (07:55→22:15)
[2017-03-06] MEDS: cloNIDine HCL 0.2 MG TAB PO SCH ×3 (07:56→16:46)
[2017-03-06] MEDS: SODIUM CHLORIDE 0.9% FLUSH 10 ML FLUSH IV FLUSH SCH ×2 (07:56→21:00)
[2017-03-06] MEDS: PANTOPRAZOLE SODIUM 40 MG VIAL IV PUSH SCH ×2 (07:56→22:15)
[2017-03-06] MEDS: LACTULOSE SYRUP 20 GM/30 ML CUP PO SCH ×2 (07:56→13:30)
[2017-03-06 09:02] LABS: HEMATOCRIT 31.6 % (39.0-51.0); MEAN CELL VOLUME 104.6 FL (80.0-100.0); MEAN CORPUSCULAR HEMOGLOBIN 35.7 PG (27.0-34.0); MEAN CORPUSCULAR HGB CONC 34.1 % (32.0-36.0); PLATELET COUNT 107 TH/MM3 (150-450); RED BLOOD COUNT 3.02 MIL/MM3 (4.50-5.90); REVIEW FLAG FINAL; WHITE BLOOD COUNT 5.7 TH/MM3 (4.0-11.0)
[2017-03-06 09:18] LABS: BICARBONATE 36.2 MEQ/L (21.0-32.0); POTASSIUM 3.6 MEQ/L (3.5-5.1)
[2017-03-06] MEDS ORDERED: PHENOL 1.4% SOLN 180 ML BTL OROPHARYNG PRN (10:00)
[2017-03-06] MEDS: SODIUM BICARBONATE 8.4% INJ 100 MEQ in DEXTROSE 5% IN WATE 1000ML INJ 1,000 ML IV SCH ×2 (10:37)
[2017-03-06] MEDS: ALBUMIN HUMAN 25% 25 GM/100 ML BAGP IV SCH (11:13)
[2017-03-06] MEDS: HEPARIN SODIUM - SQ 10,000 UNITS/ML VIAL SQ SCH (11:28)
--- NOTE | 2017-03-06 11:33 | HHI.FPPN ---
Subjective Remarks Overnight, patient was overly sedated from dose of Seroquel. Patient has been more hypertensive than usual with one episode of hypoxia to 91% on 2 L nasal cannula. Otherwise, patient has been afebrile with vital signs stable. After spending several minutes trying to understand what the patient was saying in an incoherent whisper, the nurse came in and asked what he is trying to say. He finally became audible and said "you stupid fucking bitch". I understood him to be c/o a sore throat. (Anderson Matt MD R2) Objective Vitals Vital Signs Date Time Temp Pulse Resp B/P (MAP) Pulse Ox O2 Delivery O2 Flow Rate FiO2 03/06/17 08:27 91 Nasal Cannula 2.00 03/06/17 04:30 97.5 62 17 162/96 (118) 98 03/06/17 02:40 97.3 63 20 192/108 (136) 96 03/06/17 01:17 96 Nasal Cannula 2.00 03/06/17 00:48 98.0 51 19 171/100 (123) 98 03/05/17 20:40 97.3 93 19 163/101 (121) 94 03/05/17 18:48 120/79 (93) 03/05/17 16:00 96.2 86 17 166/107 (126) 99 03/05/17 15:33 96 2.00 03/05/17 12:00 97.0 95 17 134/84 (101) 96 I/O 03/05/17 03/05/17 03/05/17 03/06/17 03/06/17 03/06/17 07:00 15:00 23:00 07:00 15:00 23:00 Intake Total 120 ml 640 ml 1420 ml 120 ml Balance 120 ml 640 ml 1420 ml 120 ml Intake Oral 120 ml 240 ml 477 ml 120 ml IV Total 400 ml 943 ml # Voids 3 4 0 4 # Bowel Movements 3 4 0 0 (Anderson Matt MD R2) Result Diagram: 03/06/17 0820 03/06/17 0820 Imaging Last Impressions Shoulder X-Ray 03/05/17 0000 Signed Impressions: Service Date/Time: Sunday, March 05, 2017 20:57 - CONCLUSION: No acute disease. Rick Sanford MD Abdomen/Pelvis CT 03/04/17 0000 Signed Impressions: Service Date/Time: Saturday, March 04, 2017 10:31 - CONCLUSION: 1. There is no hydronephrosis or renal abnormality to explain the renal failure. However, there is subtle high density stranding along the medial and upper pole of the right kidney. Suggest followup CT to assess for change. 2. Abnormal mass arising from or abutting the spleen in the left upper quadrant measuring up to 7.5 cm. It contains a small amount of calcification. Suggest correlating with any prior imaging study that could offer additional characterization. If none are available suggest followup imaging to confirm stability and consider contrast enhanced CT or MRI for further characterization when patient condition permits. 3. Small bilateral pleural effusions, left larger than right, with associated compressive atelectasis. 4. Severe coronary artery calcification. Kilo Coulter MD Chest X-Ray 03/02/17 0000 Signed Impressions: Service Date/Time: Thursday, March 02, 2017 08:18 - CONCLUSION: Increasing consolidative changes left base. Nasir Mack MD FACR Renal Ultrasound 02/27/17 0000 Signed Impressions: Service Date/Time: Monday, February 27, 2017 20:36 - CONCLUSION: 1. Mildly dilated left renal collecting system. Kidneys normal in size. Trace free fluid. Ruy Hussein MD Brain MRI 02/25/17 0000 Signed Impressions: Service Date/Time: Saturday, February 25, 2017 12:37 - CONCLUSION: Atrophy, periventricular changes without evidence for acute infarction. Nasir Mack MD FACR Head CT 02/23/17 0000 Signed Impressions: Service Date/Time: Thursday, February 23, 2017 07:38 - CONCLUSION: No significant change has occurred. Maximus Pavon MD Objective Remarks GENERAL: male, lying in bed, awake and moves limbs spontaneously despite restraints, whispers and mumbles in response to questions, less tremulous today SKIN: Bilateral upper extremities with multiple well-healing scabs; no appreciated erythema or warmth appreciated today. HEENT: Pupils grossly symmetrical; EOM grossly intact; dry MM CARDIOVASCULAR: RRR without appreciable murmurs. grossly normal perfusion. No edema RESPIRATORY: normal rate; coarse breath sounds bilaterally, likely from upper airway, without wheezing GASTROINTESTINAL: Abdomen soft, non-tender, nondistended; + bowel sounds MUSCULOSKELETAL: No cyanosis or edema. NEURO: No focal CN defects or peripheral motor/sensory focal defects. Patient attempts to answer questions but is whispering and difficult to understand. Patient remains tremulous. PSYCH: Seems anxious, but good eye contact; patient seems cordial with male staff members and insulting with female staff members (Anderson Matt MD R2) Date of Insertion: Feb 23, 2017 (Anderson Matt MD R2) A/P Assessment and Plan 57-year-old white male with past medical history of alcohol withdrawal presented to the ED with hypoglycemia and altered mental status; patient has had progressively worsening renal function and is currently being treated for renal failure and continued altered mental status Discharge Planning Pending workup for declining renal function (Anderson Matt MD R2) Attending Attestation Patient seen and examined. Case reviewed and discussed with the resident team. Agree with plan of care as discussed with me and documented in the resident note. will consider asking neurology what his mental state and best case neurologic function could be. an EEG may be helpful. his MRI shows atrophy and white matter changes. it is unclear if his previous low glucose levels, vs alcohol and drug history etc. have effected his cognition permanently. he has some splenic mass. perhaps radiology can give advice about whether this may be malignant. called his brother listed in chart. evidently per old records he has been estranged from his 6 or 7 siblings for quite awhile with his alcohol abuse and personality disorders and had also "been to nursing home 50 times" for various things. if he cannot improve to the point where he can make his own decisions, will need a family member or friend to make them for him but there is no one who visits him or will speak for him that I am aware of. (Betzaida Connolly MD) Problem List: (1) SAQIB (acute kidney injury) ICD Codes: N17.9 - Acute kidney failure, unspecified Status: Acute Plan: Creatinine finally downtrending. -Nephrology consulted -Suspect ATN, likely in the context of drug use -Increase UOP -Monitor BMP -Continue IVF with Bicarbonate (D5 w/ 2 amp bicarb at 70ml/hr) -Albumin 25 g IV every 12hrs scheduled -CT abdomen/pelvis ordered to further evaluate etiology of renal dysfunction -No hydronephrosis. Subtle high density stranding medial/upper right kidney. Abnormal mass arising from/abutting spleen LUQ measuring up to 7.5 cm with small amount of calcification Impression: Patient with SAQIB. Creatinine trended: 0.86 on admission -> 3.97 on 03/03 (has been >3 since 02/27) Suspect intrinsic cause as Cr elevation refractory to fluid supplementation, BUN /Cr ratio <20/1, and catheterized Previously on Vancomycin-> discontinued Renal US 02/27 with mild L hydronephrosis; normal kidneys No urine eosinophils Urine random Cr 41.6 Urine random sodium 97 (2) Altered mental status ICD Codes: R41.82 - Altered mental status, unspecified Status: Acute Plan: 03/05: Patient seems to have improved in response to decreasing sedation. Patient continues to be difficult to understand. -Will continue to treat agitation taper CIWA -Stopped Librium -Stopped Ativan 1mg IV for agitation (patient given 1mg today prior to CT for sedation) -Haldol 1mg PRN q8hrs for agitation/psychosis -Started Seroquel 50 mg by mouth daily at bedtime, but this oversedated the patient. Decreased to Seroquel 25 mg by mouth daily at bedtime. -Continue treatment of chronic alcoholism -Continue PO multivitamin -Thiamine discontinued since Thiamine level high -Neuro consulted- supportive care and parenteral thiamine -Psychiatry consulted- delirium suspected to be superimposed on mild dementing process secondary to severe alcoholism. -Continue supportive treatment -Recommend judicious benzodiazepine usage -May benefit from some type of extended care facility -Occupational therapy recommended OT at rehabilitation (PT recommended OT) -ST consulted -regular and thin liquids per ST. patient is dependent with total help required. -Continue IVF while not having adequate intake -Seizure precautions Impression: AMS initially suspected secondary to alcoholism; persistent UDS positive for Benzos and Cocaine Brain MRI on 02/25- atrophy, periventricular changes without evidence for acute infarction Head CT on admission- no significant change EEG- Mild background slowing without epileptiform features, may be mild encephalopathic process Ammonia 20, RPR nonreactive CMP on admission with mild hyponatremia (134), transaminase elevations, calcium of 8.1 Hep panel pending Thiamine level high at 325 (3) PNA (pneumonia) ICD Codes: J18.9 - Pneumonia, unspecified organism Status: Acute Plan: -Continue antibiotic therapy from 03/02 - present -Azithromycin 500mg IV daily -Zosyn 2/25mg IV q6hrs -Continue Solumedrol 40mg IV BID -Continue Duonebs -Continue O2 as needed Impression: 03/02 chest x-ray with increasing consolidative changes in the left base: Patient with symptoms of cough and intermittent low O2 sats requiring NC O2 supplementation Initial blood cultures + for staph hominis; subsequently negative 02/26, 03/02 Sputum cultures not obtained Urine Legionella, strep pneumo negative (4) Atelectasis ICD Codes: J98.11 - Atelectasis Status: Acute Plan: -Chest physiotherapy -Acapella, incentive spirometer -Duo nebs every 4 hours Impression: Patient with decreased breath sounds on exam had repeat Chest x-ray that showed left lung atelectasis. Patient not using incentive spirometer. CXR 02/26 with mild LLL airspace disease and atelectasis (5) Hypertension ICD Codes: I10 - Essential (primary) hypertension Status: Chronic Plan: Patient still hypertensive. -added amlodipine 5mg po qd -Continue Metoprolol to 50 mg BID -Increased Clonidine 0.2mg PO to TID -Clonidine 0.1 mg by mouth every 6 hours when necessary For SBP >/= 180, DBP >/ = 100 Impression: Patient with high pressures not being resolved with Ativan. May have underlying hypertension. (6) FEN Status: Acute Plan: Fluids: gentle IVF with D5 W with sodium bicarbonate Electrolytes: Monitor and replace as needed Nutrition: Regular basic diet thin liquids and boost shakes as supplement VTE prophylaxis: Heparin 5000 units every 12 hours (Anderson Matt MD R2) Problem Qualifiers (1) Altered mental status: Qualified Codes: R41.0 - Disorientation, unspecified (2) Hypertension: Qualified Codes: I10 - Essential (primary) hypertension Anderson Matt MD R2 Mar 06, 2017 11:33 Betzaida Connolly MD Mar 06, 2017 17:03
[2017-03-06] MEDS: NYSTAT/DIPHENHY/LIDO MOUTHWASH (Adult) 120ML SWISH-SWAL SCH ×3 (13:00→21:00)
[2017-03-06] MEDS: AZITHROMYCIN INJ 500 MG in SODIUM CHLOR 0.9% 250 ML INJ 250 ML IV SCH (13:29)
[2017-03-06] MEDS: cloNIDine HCL 0.1 MG TAB PO PRN (13:29)
[2017-03-06] MEDS: methylPREDNISolone SOD SUCC 40 MG/1 ML VIAL IV PUSH SCH (13:29)
--- NOTE | 2017-03-06 14:12 | HHI.NPPN ---
Subjective History of Present Illness 57-year-old male with the alcohol withdrawal, altered mental status, acute renal failure Additional Remarks no change in clinical picture Objective Data Data Vital Signs Date Time Temp Pulse Resp B/P (MAP) Pulse Ox O2 Delivery O2 Flow Rate FiO2 03/06/17 12:00 97.7 87 16 168/111 (130) 98 03/06/17 08:27 91 Nasal Cannula 2.00 03/06/17 08:00 96.2 72 17 194/116 (142) 95 03/06/17 04:30 97.5 62 17 162/96 (118) 98 03/06/17 02:40 97.3 63 20 192/108 (136) 96 03/06/17 01:17 96 Nasal Cannula 2.00 03/06/17 00:48 98.0 51 19 171/100 (123) 98 03/05/17 20:40 97.3 93 19 163/101 (121) 94 03/05/17 18:48 120/79 (93) 03/05/17 16:00 96.2 86 17 166/107 (126) 99 03/05/17 15:33 96 2.00 -: 03/06/17 0820 03/06/17 0820 Physical Exam General Appearance: Malnourished Eyes Eye Exam: Pupils Equal Neck Neck Exam: Neck Supple Pulmonary Resp Exam: Crackles, Rhonchi, Diminished Breath Sounds Cardiology CV Exam: Regular, Normal Sinus Rhythm Gastrointestinal/Abdomen GI Exam: Soft, Non-Tender, Bowel Sounds Present Musculoskeletal MS Exam: Unable to Ambulate Extremeties Extremities Exam: No Edema Assessment/Plan Problem List: (1) SAQIB (acute kidney injury) ICD Codes: N17.9 - Acute kidney failure, unspecified Status: Acute Plan: Acute renal failure acute tubular necrosis with drug use inc UOP Cr 3.6 has ATN refractory to fluids, possible vanco induced X ray shoulder normal Monitor BMP His urine output is good CT scan reviewed Subtle high density stranding medial/upper right kidney. Abnormal mass arising from/abutting spleen LUQ measuring up to 7.5 cm with small amount of calcification BP Better (2) Alcohol withdrawal ICD Codes: F10.239 - Alcohol dependence with withdrawal, unspecified Status: Chronic Plan: Patient remained in altered mental status (3) Hypertension ICD Codes: I10 - Essential (primary) hypertension Status: Chronic Plan: Patient's blood pressure was labile continue to monitor Problem Qualifiers (1) Alcohol withdrawal: Qualified Codes: F10.231 - Alcohol dependence with withdrawal delirium (2) Hypertension: Qualified Codes: I10 - Essential (primary) hypertension Daryl Martinez MD Mar 06, 2017 14:12
[2017-03-06] MEDS ORDERED: amLODIPine BESYLATE 5 MG TAB PO ONE (16:00)
[2017-03-06] MEDS ORDERED: hydrALAZINE HCL 10 MG TAB PO ONE (16:45)
--- NOTE | 2017-03-06 16:54 | HHI.PR ---
Addendum to Inpatient Note Addendum Reason: Additional Documentation Additional Information Received pages regarding hypertension and patient respiratory exam sounding "junky." Placed orders for hydralazine 10 mg 1 and scheduled and placed new order for more breathing treatments (previous order ) and chest physiotherapy and acapella. Anderson Matt MD R2 Mar 06, 2017 16:54
[2017-03-06] MEDS ORDERED: RESP: ALBUTEROL 2.5 MG/IPRATROPIUM 0.5 MG NEB (PRN) ONE (17:07)
[2017-03-06] MEDS ORDERED: hydrALAZINE HCL 10 MG TAB PO SCH (21:00)
[2017-03-06] MEDS: QUEtiapine FUMARATE 25 MG TAB PO SCH (22:15)
[2017-03-07] VITALS (10 sets, daily range): BP systolic 121–178; BP diastolic 81–108; PULSE 71–85; RESP 18–20; TEMP 95.5–98.1; O2SAT 90–96
[2017-03-07] MEDS: HEPARIN SODIUM - SQ 10,000 UNITS/ML VIAL SQ SCH ×3 (01:01→22:42)
[2017-03-07] MEDS: PIPERACIL-TAZO 2.25 GM PREMIX 50 ML IV SCH ×4 (01:01→18:15)
[2017-03-07] MEDS: methylPREDNISolone SOD SUCC 40 MG/1 ML VIAL IV PUSH SCH ×2 (01:01→13:02)
[2017-03-07] MEDS: SODIUM BICARBONATE 8.4% INJ 100 MEQ in DEXTROSE 5% IN WATE 1000ML INJ 1,000 ML IV SCH ×2 (01:02)
[2017-03-07] MEDS: RESP: ALBUTEROL 2.5 MG/IPRATROPIUM 0.5 MG NEB (SCH) NEB ×5 (03:07→20:30)
[2017-03-07] MEDS: PANTOPRAZOLE SODIUM 40 MG VIAL IV PUSH SCH ×2 (08:47→22:42)
[2017-03-07] MEDS: cloNIDine HCL 0.2 MG TAB PO SCH ×3 (08:47→18:15)
[2017-03-07] MEDS: MULTIVITAMIN TAB PO SCH (08:47)
[2017-03-07] MEDS: METOPROLOL TARTRATE 50 MG TAB PO SCH ×2 (08:47→22:43)
[2017-03-07] MEDS: SODIUM CHLORIDE 0.9% FLUSH 10 ML FLUSH IV FLUSH SCH ×2 (08:47→21:00)
[2017-03-07] MEDS: NYSTAT/DIPHENHY/LIDO MOUTHWASH (Adult) 120ML SWISH-SWAL SCH ×4 (09:00→22:43)
[2017-03-07] MEDS ORDERED: amLODIPine BESYLATE 5 MG TAB PO SCH (09:00)
[2017-03-07] MEDS: AZITHROMYCIN INJ 500 MG in SODIUM CHLOR 0.9% 250 ML INJ 250 ML IV SCH (13:02)
--- NOTE | 2017-03-07 14:10 | HHI.NPPN ---
Subjective History of Present Illness 57-year-old male with the alcohol withdrawal, altered mental status, acute renal failure Additional Remarks no change in clinical picture Objective Data Data Vital Signs Date Time Temp Pulse Resp B/P (MAP) Pulse Ox O2 Delivery O2 Flow Rate FiO2 03/07/17 11:17 95.5 76 20 121/81 (94) 94 03/07/17 07:31 98.1 71 20 167/108 (127) 92 03/07/17 07:30 93 Nasal Cannula 2.00 03/07/17 04:05 96.2 71 20 178/92 (120) 96 Automatic Cuff 03/07/17 00:16 90 Nasal Cannula 3.00 03/06/17 23:55 98.5 80 17 165/90 (115) 92 03/06/17 19:44 Nasal Cannula 2.00 03/06/17 19:00 96.4 75 16 165/90 (115) 93 03/06/17 18:30 178/110 (132) 03/06/17 17:09 98 Nasal Cannula 2.00 03/06/17 16:00 95.9 68 17 206/134 (158) 100 -: 03/06/17 0820 03/06/17 0820 Physical Exam General Appearance: Malnourished Eyes Eye Exam: Pupils Equal Neck Neck Exam: Neck Supple Pulmonary Resp Exam: Crackles, Rhonchi, Diminished Breath Sounds Cardiology CV Exam: Regular, Normal Sinus Rhythm Gastrointestinal/Abdomen GI Exam: Soft, Non-Tender, Bowel Sounds Present Musculoskeletal MS Exam: Unable to Ambulate MS Remarks left shoulder sub laxation ? dislocated Extremeties Extremities Exam: No Edema Assessment/Plan Problem List: (1) SAQIB (acute kidney injury) ICD Codes: N17.9 - Acute kidney failure, unspecified Status: Acute Plan: Acute renal failure acute tubular necrosis with drug use inc UOP Cr 3.6 has ATN refractory to fluids, possible vanco induced may dc Bicarbonate Monitor BMP His urine output is good CT scan reviewed Subtle high density stranding medial/upper right kidney. Abnormal mass arising from/abutting spleen LUQ measuring up to 7.5 cm with small amount of calcification BP high on medications (2) Alcohol withdrawal ICD Codes: F10.239 - Alcohol dependence with withdrawal, unspecified Status: Chronic Plan: Patient remained in altered mental status (3) Hypertension ICD Codes: I10 - Essential (primary) hypertension Status: Chronic Plan: Patient's blood pressure was labile continue to monitor Problem Qualifiers (1) Alcohol withdrawal: Qualified Codes: F10.231 - Alcohol dependence with withdrawal delirium (2) Hypertension: Qualified Codes: I10 - Essential (primary) hypertension Daryl Martinez MD Mar 07, 2017 14:10
--- NOTE | 2017-03-07 15:31 | HHI.FPPN ---
Subjective Remarks No acute events overnight. Patient remains hypertensive with some low pulse ox on 2-3 L nasal cannula. Otherwise, he remains afebrile with vital signs stable. He is still whispering and difficult to understand today. He whispers a phone number and tells us that it is his mother's phone number. We called, but they did not know Mr. Cuevas. (Anderson Matt MD R2) Objective Vitals Vital Signs Date Time Temp Pulse Resp B/P (MAP) Pulse Ox O2 Delivery O2 Flow Rate FiO2 03/07/17 15:25 95.6 72 20 143/89 (107) 92 03/07/17 11:17 95.5 76 20 121/81 (94) 94 03/07/17 07:31 98.1 71 20 167/108 (127) 92 03/07/17 07:30 93 Nasal Cannula 2.00 03/07/17 04:05 96.2 71 20 178/92 (120) 96 Automatic Cuff 03/07/17 00:16 90 Nasal Cannula 3.00 03/06/17 23:55 98.5 80 17 165/90 (115) 92 03/06/17 19:44 Nasal Cannula 2.00 03/06/17 19:00 96.4 75 16 165/90 (115) 93 03/06/17 18:30 178/110 (132) 03/06/17 17:09 98 Nasal Cannula 2.00 03/06/17 16:00 95.9 68 17 206/134 (158) 100 I/O 03/06/17 03/06/17 03/06/17 03/07/17 03/07/17 03/07/17 07:00 15:00 23:00 07:00 15:00 23:00 Intake Total 120 ml 640 ml 1545 ml 800 ml Balance 120 ml 640 ml 1545 ml 800 ml Intake Oral 120 ml 640 ml 240 ml 800 ml IV Total 1305 ml # Voids 4 4 3 4 # Bowel Movements 0 1 0 4 (Anderson Matt MD R2) Result Diagram: 03/06/17 0820 03/06/17 0820 Imaging Last Impressions Shoulder X-Ray 03/05/17 0000 Signed Impressions: Service Date/Time: Sunday, March 05, 2017 20:57 - CONCLUSION: No acute disease. Rick Sanford MD Abdomen/Pelvis CT 03/04/17 0000 Signed Impressions: Service Date/Time: Saturday, March 04, 2017 10:31 - CONCLUSION: 1. There is no hydronephrosis or renal abnormality to explain the renal failure. However, there is subtle high density stranding along the medial and upper pole of the right kidney. Suggest followup CT to assess for change. 2. Abnormal mass arising from or abutting the spleen in the left upper quadrant measuring up to 7.5 cm. It contains a small amount of calcification. Suggest correlating with any prior imaging study that could offer additional characterization. If none are available suggest followup imaging to confirm stability and consider contrast enhanced CT or MRI for further characterization when patient condition permits. 3. Small bilateral pleural effusions, left larger than right, with associated compressive atelectasis. 4. Severe coronary artery calcification. Kilo Coulter MD Chest X-Ray 03/02/17 0000 Signed Impressions: Service Date/Time: Thursday, March 02, 2017 08:18 - CONCLUSION: Increasing consolidative changes left base. Nasir Mack MD FACR Renal Ultrasound 02/27/17 0000 Signed Impressions: Service Date/Time: Monday, February 27, 2017 20:36 - CONCLUSION: 1. Mildly dilated left renal collecting system. Kidneys normal in size. Trace free fluid. Ruy Hussein MD Brain MRI 02/25/17 0000 Signed Impressions: Service Date/Time: Saturday, February 25, 2017 12:37 - CONCLUSION: Atrophy, periventricular changes without evidence for acute infarction. Nasir Mack MD FACR Head CT 02/23/17 0000 Signed Impressions: Service Date/Time: Thursday, February 23, 2017 07:38 - CONCLUSION: No significant change has occurred. Maximus Pavon MD Objective Remarks GENERAL: male, lying in bed, awake and moves limbs spontaneously despite restraints, whispers and mumbles in response to questions, less tremulous today SKIN: Bilateral upper extremities with multiple well-healing scabs; no appreciated erythema or warmth appreciated today. HEENT: Pupils grossly symmetrical; EOM grossly intact; dry MM CARDIOVASCULAR: RRR without appreciable murmurs. grossly normal perfusion. No edema RESPIRATORY: normal rate; more clear breath sounds bilaterally, without wheezing GASTROINTESTINAL: Abdomen soft, non-tender, nondistended; + bowel sounds MUSCULOSKELETAL: No cyanosis or edema. NEURO: No focal CN defects or peripheral motor/sensory focal defects. Patient attempts to answer questions but is whispering and difficult to understand. Patient remains tremulous. (Anderson Matt MD R2) Date of Insertion: Feb 23, 2017 (Anderson Matt MD R2) A/P Assessment and Plan 57-year-old white male with past medical history of alcohol withdrawal presented to the ED with hypoglycemia and altered mental status; patient has had progressively worsening renal function and is currently being worked up for renal failure and continued altered mental status Discharge Planning Pending workup for declining renal function Discussing with case management regarding placement. Possibly SNF (Anderson Matt MD R2) Attending Attestation Patient seen and examined. Case reviewed and discussed with the resident team. Agree with plan of care as discussed with me and documented in the resident note. having a hard time reaching any family or even a friend that will help make decisions for him. his sedation is lightened up tremendously and he is not withdrawing anymore. will keep working on getting his mentation clearer (Betzaida Connolly MD) Problem List: (1) Altered mental status ICD Codes: R41.82 - Altered mental status, unspecified Status: Acute Plan: Patient seems to have improved in response to decreasing sedation. Patient continues to be difficult to understand. -Will continue to treat agitation taper CIWA -Stopped Librium -Stopped Ativan 1mg IV for agitation (patient given 1mg today prior to CT for sedation) -Haldol 1mg PRN q8hrs for agitation/psychosis -Started Seroquel 50 mg by mouth daily at bedtime, but this oversedated the patient. Decreased to Seroquel 25 mg by mouth daily at bedtime. 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 -Continue supportive treatment -Recommend judicious benzodiazepine usage -May benefit from some type of extended care facility -Occupational therapy recommended OT at rehabilitation (PT recommended OT) -ST consulted -regular and thin liquids per ST. patient is dependent with total help required. -Continue IVF while not having adequate intake -Seizure precautions Impression: AMS initially suspected secondary to alcoholism; persistent UDS positive for Benzos and Cocaine Brain MRI on 02/25- atrophy, periventricular changes without evidence for acute infarction Head CT on admission- no significant change EEG- Mild background slowing without epileptiform features, may be mild encephalopathic process Ammonia 20, RPR nonreactive CMP on admission with mild hyponatremia (134), transaminase elevations, calcium of 8.1 Hep panel pending Thiamine level high at 325 (2) SAQIB (acute kidney injury) ICD Codes: N17.9 - Acute kidney failure, unspecified Status: Acute Plan: Creatinine finally downtrending. -Nephrology consulted -Suspect ATN, refractory to fluids, likely in the context of drug use, maybe vancomycin, or other etiology -Increase UOP -Monitor BMP -Discontinue IVF with Bicarbonate (D5 w/ 2 amp bicarb at 70ml/hr) -Stopped Albumin 25 g IV every 12hrs scheduled -CT abdomen/pelvis ordered to further evaluate etiology of renal dysfunction -No hydronephrosis. Subtle high density stranding medial/upper right kidney. Abnormal mass arising from/abutting spleen LUQ measuring up to 7.5 cm with small amount of calcification. Discussed with radiologist. Likely from previous trauma. No further workup indicated. Impression: Patient with SAQIB. Creatinine trended: 0.86 on admission -> 3.97 on 03/03 (has been >3 since 02/27) Suspect intrinsic cause as Cr elevation refractory to fluid supplementation, BUN /Cr ratio <20/1, and catheterized Previously on Vancomycin-> discontinued Renal US 02/27 with mild L hydronephrosis; normal kidneys No urine eosinophils Urine random Cr 41.6 Urine random sodium 97 (3) PNA (pneumonia) ICD Codes: J18.9 - Pneumonia, unspecified organism Status: Acute Plan: -Continue antibiotic therapy from 03/02 - 03/07 for 5-6 days to treat pneumonia; stop today -Azithromycin 500mg IV daily -Zosyn 2/25mg IV q6hrs -Discontinue Solumedrol 40mg IV BID -Continue Duonebs -Continue O2 as needed Impression: 03/02 chest x-ray with increasing consolidative changes in the left base: Patient with symptoms of cough and intermittent low O2 sats requiring NC O2 supplementation Initial blood cultures + for staph hominis; subsequently negative 02/26, 03/02 Sputum cultures not obtained Urine Legionella, strep pneumo negative (4) Atelectasis ICD Codes: J98.11 - Atelectasis Status: Acute Plan: -Chest physiotherapy -Acapella, incentive spirometer -Duo nebs every 4 hours Impression: Patient with decreased breath sounds on exam had repeat Chest x-ray that showed left lung atelectasis. Patient not using incentive spirometer. CXR 02/26 with mild LLL airspace disease and atelectasis (5) Hypertension ICD Codes: I10 - Essential (primary) hypertension Status: Chronic Plan: Patient still hypertensive. -Amlodipine 5mg po qd -Metoprolol 50 mg BID -Clonidine 0.2mg PO to TID -Clonidine 0.1 mg by mouth every 6 hours when necessary For SBP >/= 180, DBP >/ = 100 -hydralazine PRN Impression: Patient with high pressures not being resolved with Ativan. Likely has underlying hypertension. (6) FEN Status: Acute Plan: Fluids: gentle IVF with D5W until tolerating enough PO Electrolytes: Monitor and replace as needed Nutrition: Regular basic diet mechanical soft and boost shakes as supplement VTE prophylaxis: Heparin 5000 units every 12 hours (Anderson Matt MD R2) Problem Qualifiers (1) Altered mental status: Qualified Codes: R41.0 - Disorientation, unspecified (2) Hypertension: Qualified Codes: I10 - Essential (primary) hypertension Anderson Matt MD R2 Mar 07, 2017 15:31 Betzaida Connolly MD Mar 09, 2017 18:00
[2017-03-07] MEDS: DEXTROSE 5% IN WATE 1000ML INJ 1,000 ML IV SCH (16:24)
[2017-03-07] MEDS: QUEtiapine FUMARATE 25 MG TAB PO SCH (22:43)
[2017-03-08] VITALS (8 sets, daily range): BP systolic 109–175; BP diastolic 77–117; PULSE 71–91; RESP 18–19; TEMP 95.9–97.9; O2SAT 87–97
[2017-03-08] MEDS: RESP: ALBUTEROL 2.5 MG/IPRATROPIUM 0.5 MG NEB (SCH) NEB ×6 (00:37→19:45)
[2017-03-08] MEDS: DEXTROSE 5% IN WATE 1000ML INJ 1,000 ML IV SCH ×3 (06:43→20:35)
[2017-03-08 08:43] LABS: BICARBONATE 32.9 MEQ/L (21.0-32.0)
[2017-03-08 08:48] LABS: POTASSIUM 5.9 MEQ/L (3.5-5.1)
[2017-03-08] MEDS: MULTIVITAMIN TAB PO SCH (09:00)
[2017-03-08] MEDS: SODIUM CHLORIDE 0.9% FLUSH 10 ML FLUSH IV FLUSH SCH ×2 (09:00→20:35)
[2017-03-08] MEDS: NYSTAT/DIPHENHY/LIDO MOUTHWASH (Adult) 120ML SWISH-SWAL SCH ×4 (09:00→20:36)
[2017-03-08] MEDS: THIAMINE HCL 100 MG TAB PO SCH (09:15)
[2017-03-08] MEDS ORDERED: amLODIPine BESYLATE 5 MG TAB PO ONE (09:15)
--- NOTE | 2017-03-08 09:32 | HHI.HCPN ---
Palliative care consulted to assist with finding family for this gentleman. In review of records appears patient has a brother listed in EMR that does not want to be involved. Left message this morning around 10am requesting call back to provide any additional information on patient's family and contact information if possible. No return call as of 2pm. Unable to locate on social media. Per past psychiatric records patient has a "grown child" and "many sisters" and the one brother. Spoke with ERNESTO Hay to request accurints. Results found no family members or contact. Accurints ran on patient's brother. Also no family members or contact found. No family member names to attend google/social media searches. Spoke with case mgr to update on above and recommend follow policy for patient's with no available health care proxy. Per medical team currently trying to clear up patient's mental status. If patient's mentation does not improve and he remains confused, social work advantage or guardianship would be needed prior to addressing any goals of care. Spoke with Dr. Rboerto. Updated on above. If brother is unable/unwilling to participate in medical decision making and no further information on other family members can be identified. Social work advantaged recommended if inpatient medical decision is needed. Social work advantage is only utilized during the hospitalization. They do not follow the patient after discharge. Recommend pursuing guardianship through courts if patient is going to need ongoing assistance both during and after the hospitalization. Mr. Cuevas will be potentially a difficult discharge given his history. Palliative care unable to address goals of care until medical proxy decision maker in place. Palliative care will be available if needed to further assist once decision maker identified. Anna Quach, [employer] Mar 08, 2017 09:32
[2017-03-08] MEDS: PANTOPRAZOLE SODIUM 40 MG VIAL IV PUSH SCH (10:13)
--- NOTE | 2017-03-08 10:29 | HHI.FPPN ---
Subjective Remarks Patient is talking and audible today. Though still difficult to understand at times, this is most conversation I have had with this gentleman. He thinks he is in a school and the year is 1978. He is able to joke around with me. He denies any problems breathing or pain anywhere in his body. (Anderson Matt MD R2) Objective Vitals Vital Signs Date Time Temp Pulse Resp B/P (MAP) Pulse Ox O2 Delivery O2 Flow Rate FiO2 03/08/17 07:43 95.9 78 19 175/117 (136) 92 03/08/17 07:28 87 Nasal Cannula 3.00 03/08/17 04:58 97.5 79 18 172/98 (122) 92 03/07/17 23:50 96.4 81 18 149/93 (111) 92 03/07/17 20:30 93 Nasal Cannula 3.00 03/07/17 20:15 Nasal Cannula 2.00 03/07/17 19:00 96.9 85 18 131/92 (105) 94 03/07/17 16:15 82 03/07/17 15:25 95.6 72 20 143/89 (107) 92 03/07/17 11:17 95.5 76 20 121/81 (94) 94 I/O 03/07/17 03/07/17 03/07/17 03/08/17 03/08/17 03/08/17 07:00 15:00 23:00 07:00 15:00 23:00 Intake Total 1545 ml 800 ml 1882 ml 674 ml Balance 1545 ml 800 ml 1882 ml 674 ml Intake Oral 240 ml 800 ml 240 ml 120 ml IV Total 1305 ml 1642 ml 554 ml # Voids 3 4 2 2 # Bowel Movements 0 4 2 0 (Anderson Matt MD R2) Result Diagram: 03/06/17 0820 03/08/17 0747 Imaging Last Impressions Shoulder X-Ray 03/05/17 0000 Signed Impressions: Service Date/Time: Sunday, March 05, 2017 20:57 - CONCLUSION: No acute disease. Rick Sanford MD Abdomen/Pelvis CT 03/04/17 0000 Signed Impressions: Service Date/Time: Saturday, March 04, 2017 10:31 - CONCLUSION: 1. There is no hydronephrosis or renal abnormality to explain the renal failure. However, there is subtle high density stranding along the medial and upper pole of the right kidney. Suggest followup CT to assess for change. 2. Abnormal mass arising from or abutting the spleen in the left upper quadrant measuring up to 7.5 cm. It contains a small amount of calcification. Suggest correlating with any prior imaging study that could offer additional characterization. If none are available suggest followup imaging to confirm stability and consider contrast enhanced CT or MRI for further characterization when patient condition permits. 3. Small bilateral pleural effusions, left larger than right, with associated compressive atelectasis. 4. Severe coronary artery calcification. Kilo Coulter MD Chest X-Ray 03/02/17 0000 Signed Impressions: Service Date/Time: Thursday, March 02, 2017 08:18 - CONCLUSION: Increasing consolidative changes left base. Nasir Mack MD FACR Renal Ultrasound 02/27/17 0000 Signed Impressions: Service Date/Time: Monday, February 27, 2017 20:36 - CONCLUSION: 1. Mildly dilated left renal collecting system. Kidneys normal in size. Trace free fluid. Ruy Hussein MD Brain MRI 02/25/17 0000 Signed Impressions: Service Date/Time: Saturday, February 25, 2017 12:37 - CONCLUSION: Atrophy, periventricular changes without evidence for acute infarction. Nasir Mack MD FACR Head CT 02/23/17 0000 Signed Impressions: Service Date/Time: Thursday, February 23, 2017 07:38 - CONCLUSION: No significant change has occurred. Maximus Pavon MD Objective Remarks GENERAL: male, lying in bed, awake and moves limbs spontaneously despite restraints, responds to questions SKIN: Bilateral upper extremities with multiple well-healing scabs; no appreciated erythema or warmth appreciated today. HEENT: Pupils grossly symmetrical; EOM grossly intact; dry MM CARDIOVASCULAR: RRR without appreciable murmurs. grossly normal perfusion. No edema RESPIRATORY: normal rate; more clear breath sounds bilaterally, without wheezing GASTROINTESTINAL: Abdomen soft, non-tender, nondistended; + bowel sounds MUSCULOSKELETAL: No cyanosis or edema. NEURO: Patient is alert and oriented to person but not place or time or situation. No focal CN defects or peripheral motor/sensory focal defects. Patient attempts to answer questions but is still difficult to understand. (Anderson Matt MD R2) Date of Insertion: Feb 23, 2017 (Anderson Matt MD R2) A/P Assessment and Plan 57-year-old white male with past medical history of alcohol withdrawal presented to the ED with hypoglycemia and altered mental status; patient has had progressively worsening renal function and is currently being worked up for renal failure and continued altered mental status Discharge Planning Pending workup for declining renal function Discussing with case management regarding placement. Possibly SNF (Anderson Matt MD R2) Attending Attestation Patient seen and examined. Case reviewed and discussed with the resident team. Agree with plan of care as discussed with me and documented in the resident note. he is not able to cooperate or make decisions for himself at this time. agree with acapella. he cannot use incentive spirometer properly. he has some physical strength but is not cooperative with PT enough to walk. (Betzaida Connolly MD) Problem List: (1) Altered mental status ICD Codes: R41.82 - Altered mental status, unspecified Status: Acute Plan: Patient seems to have improved in response to decreasing sedation. Patient continues to be difficult to understand. Will need guardianship or competence. -Will continue to treat agitation taper CIWA -Stopped Librium -Stopped Ativan 1mg IV for agitation (patient given 1mg today prior to CT for sedation) -Haldol 1mg PRN q8hrs for agitation/psychosis -Started Seroquel 50 mg by mouth daily at bedtime, but this oversedated the patient. Decreased to Seroquel 25 mg by mouth daily at bedtime. 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 -Continue supportive treatment -Recommend judicious benzodiazepine usage -May benefit from some type of extended care facility -Occupational therapy recommended OT at rehabilitation (PT recommended OT) -ST consulted -regular and thin liquids per ST. patient is dependent with total help required. -Continue IVF while not having adequate intake -Seizure precautions Impression: AMS initially suspected secondary to alcoholism; persistent UDS positive for Benzos and Cocaine Brain MRI on 02/25- atrophy, periventricular changes without evidence for acute infarction Head CT on admission- no significant change EEG- Mild background slowing without epileptiform features, may be mild encephalopathic process Ammonia 20, RPR nonreactive CMP on admission with mild hyponatremia (134), transaminase elevations, calcium of 8.1 Hep panel pending Thiamine level high at 325 (2) SAQIB (acute kidney injury) ICD Codes: N17.9 - Acute kidney failure, unspecified Status: Acute Plan: Creatinine finally downtrending. -Nephrology consulted -Suspect ATN, refractory to fluids, likely in the context of drug use, maybe vancomycin, or other etiology -Increase UOP -Monitor BMP -Discontinue IVF with Bicarbonate (D5 w/ 2 amp bicarb at 70ml/hr) -Stopped Albumin 25 g IV every 12hrs scheduled -CT abdomen/pelvis ordered to further evaluate etiology of renal dysfunction -No hydronephrosis. Subtle high density stranding medial/upper right kidney. Abnormal mass arising from/abutting spleen LUQ measuring up to 7.5 cm with small amount of calcification. Discussed with radiologist. Likely from previous trauma. No further workup indicated. Impression: Patient with SAQIB. Creatinine trended: 0.86 on admission -> 3.97 on 03/03 (has been >3 since 02/27) Suspect intrinsic cause as Cr elevation refractory to fluid supplementation, BUN /Cr ratio <20/1, and catheterized Previously on Vancomycin-> discontinued Renal US 02/27 with mild L hydronephrosis; normal kidneys No urine eosinophils Urine random Cr 41.6 Urine random sodium 97 (3) PNA (pneumonia) ICD Codes: J18.9 - Pneumonia, unspecified organism Status: Acute Plan: -Continue antibiotic therapy from 03/02 - 03/07 for 5-6 days to treat pneumonia; stop today -Azithromycin 500mg IV daily -Zosyn 2/25mg IV q6hrs -Discontinue Solumedrol 40mg IV BID -Continue Duonebs -Continue O2 as needed Impression: 03/02 chest x-ray with increasing consolidative changes in the left base: Patient with symptoms of cough and intermittent low O2 sats requiring NC O2 supplementation Initial blood cultures + for staph hominis; subsequently negative 02/26, 03/02 Sputum cultures not obtained Urine Legionella, strep pneumo negative (4) Atelectasis ICD Codes: J98.11 - Atelectasis Status: Acute Plan: -Chest physiotherapy -Acapella, incentive spirometer -Duo nebs every 4 hours Impression: Patient with decreased breath sounds on exam had repeat Chest x-ray that showed left lung atelectasis. Patient not using incentive spirometer. CXR 02/26 with mild LLL airspace disease and atelectasis (5) Hypertension ICD Codes: I10 - Essential (primary) hypertension Status: Chronic Plan: Patient still hypertensive. -Amlodipine 5mg po qd -Metoprolol 50 mg BID -Clonidine 0.2mg PO to TID -Clonidine 0.1 mg by mouth every 6 hours when necessary For SBP >/= 180, DBP >/ = 100 -hydralazine PRN Impression: Patient with high pressures not being resolved with Ativan. Likely has underlying hypertension. (6) FEN Status: Acute Plan: Fluids: gentle IVF with D5W until tolerating enough PO Electrolytes: Monitor and replace as needed Nutrition: Regular basic diet mechanical soft and boost shakes as supplement VTE prophylaxis: Heparin 5000 units every 12 hours (Anderson Matt MD R2) Problem Qualifiers (1) Altered mental status: Qualified Codes: R41.0 - Disorientation, unspecified (2) Hypertension: Qualified Codes: I10 - Essential (primary) hypertension Anderson Matt MD R2 Mar 08, 2017 10:29 Betzaida Connolly MD Mar 09, 2017 18:03
[2017-03-08] MEDS: HEPARIN SODIUM - SQ 10,000 UNITS/ML VIAL SQ SCH ×2 (12:05→23:00)
[2017-03-08] MEDS: cloNIDine HCL 0.1 MG TAB PO SCH ×2 (13:08→17:34)
--- NOTE | 2017-03-08 13:34 | HHI.NPPN ---
Subjective History of Present Illness 57-year-old male with the alcohol withdrawal, altered mental status, acute renal failure Additional Remarks no change in clinical picture Objective Data Data Vital Signs Date Time Temp Pulse Resp B/P (MAP) Pulse Ox O2 Delivery O2 Flow Rate FiO2 03/08/17 11:33 96.5 71 19 149/91 (110) 94 03/08/17 07:43 95.9 78 19 175/117 (136) 92 03/08/17 07:28 87 Nasal Cannula 3.00 03/08/17 04:58 97.5 79 18 172/98 (122) 92 03/07/17 23:50 96.4 81 18 149/93 (111) 92 03/07/17 20:30 93 Nasal Cannula 3.00 03/07/17 20:15 Nasal Cannula 2.00 03/07/17 19:00 96.9 85 18 131/92 (105) 94 03/07/17 16:15 82 03/07/17 15:25 95.6 72 20 143/89 (107) 92 -: 03/06/17 0820 03/08/17 0747 Physical Exam General Appearance: Malnourished Eyes Eye Exam: Pupils Equal Neck Neck Exam: Neck Supple Pulmonary Resp Exam: Crackles, Rhonchi, Diminished Breath Sounds Cardiology CV Exam: Regular, Normal Sinus Rhythm Gastrointestinal/Abdomen GI Exam: Soft, Non-Tender, Bowel Sounds Present Musculoskeletal MS Exam: Unable to Ambulate MS Remarks left shoulder sub laxation ? dislocated Extremeties Extremities Exam: No Edema Assessment/Plan Problem List: (1) SAQIB (acute kidney injury) ICD Codes: N17.9 - Acute kidney failure, unspecified Status: Acute Plan: Acute renal failure acute tubular necrosis with drug use inc UOP Cr 3.25 has ATN refractory to fluids, possible vanco induced on IVF slow improvement K high but specimen was hemolyzed Monitor BMP His urine output is good CT scan reviewed Subtle high density stranding medial/upper right kidney. Abnormal mass arising from/abutting spleen LUQ measuring up to 7.5 cm with small amount of calcification BP high on medications add Hydralazine 25 mg bid (2) Alcohol withdrawal ICD Codes: F10.239 - Alcohol dependence with withdrawal, unspecified Status: Chronic Plan: Patient remained in altered mental status (3) Hypertension ICD Codes: I10 - Essential (primary) hypertension Status: Chronic Plan: Patient's blood pressure was labile continue to monitor Problem Qualifiers (1) Alcohol withdrawal: Qualified Codes: F10.231 - Alcohol dependence with withdrawal delirium (2) Hypertension: Qualified Codes: I10 - Essential (primary) hypertension Daryl Martinez MD Mar 08, 2017 13:34
--- NOTE | 2017-03-08 15:59 | MG ---
cc: RADHA BAZZI M.D. Lab No: [id number] Date: 03/08/2017 Age: Sex: M Race: TECHNIQUE 17-channel EEG. DESCRIPTION: The background rhythm reveals mild slowing in the theta range at 6 Hz. Amplitude 20-30 microvolts. A fairly prominent muscle artifact is identified. No lateralizing features are identified. No epileptiform features are seen. Photic stimulation results in a poor driving response. INTERPRETATION Abnormal study consistent with a moderate encephalopathy. MD HOANG Madden/TLL /3:30 PM /3:46 PM
[2017-03-08] MEDS: METOPROLOL TARTRATE 100 MG TAB PO SCH (20:35)
[2017-03-08] MEDS: hydrALAZINE HCL 25 MG TAB PO SCH (20:35)
[2017-03-08] MEDS: QUEtiapine FUMARATE 25 MG TAB PO SCH (20:35)
[2017-03-09] VITALS (18 sets, daily range): BP systolic 102–156; BP diastolic 70–95; PULSE 55–80; RESP 14–18; TEMP 96.6–97.8; O2SAT 90–100
[2017-03-09] MEDS: RESP: ALBUTEROL 2.5 MG/IPRATROPIUM 0.5 MG NEB (SCH) NEB ×6 (00:30→20:49)
--- NOTE | 2017-03-09 04:34 | HHI.FPPN ---
Addendum to progress note ADDENDUM Reason for addendum: Additonal documentation Additional information Delayed documentation due to unscheduled [employer] downtime. Patient is a 57-year-old male who was brought to the hospital via [place] Patient was found to have low blood glucose. Patient remained altered following correction of blood glucose. Differential diagnosis for altered mental status includes encephalopathy; patient has history of alcohol use. During hospital stay, patient developed SAQIB and was treated for suspected HCAP versus atelectasis. Patient also suffers from chronic hypertension. Resident team was paged about patient at 23:52. Charge nurse was concerned about change in breathing. She described breathing as "gasping for air." Patient 's oxygen saturation was recorded in upper 90s. Patient was receiving 4 L of oxygen via nasal cannula at that time. Resident team evaluated the patient at bedside shortly after midnight. Patient was laying in bed, sleeping. Breathing appeared labored; patient moved head up and away from pillow with every breath he took. Patient appeared to be breathing through mouth, taking shallow breaths. Patient was aroused easily but appeared lethargic/drowsy. When asked, patient denied shortness of breath and pain, including chest pain. Patient was not oriented to person, time, and place. Vital signs at that time were as follows: Temperature 97.3, heart rate 71, respiratory rate 18, oxygen saturation 94%, blood pressure 109/77. Patient remained on 4 L of oxygen. On exam, regular heart rate and rhythm were noted. Breath sounds were equal bilaterally. Neuro exam grossly normal. Patient responded to commands appropriately. slot technician arrived for scheduled breathing treatment. Oxygen saturation improved slightly (98%) following breathing treatment. Labored breathing, however, continued. Resident team ordered chest x-ray, CBC, CMP, lactic acid, D-dimer, and ammonia level. Resident team received a second page at 4:02. Charge nurse noted that patient's oxygen saturation was now registering at 88/89%. She had called respiratory to switch patient from nasal cannula to breathing mask. The report for the chest X-ray had come available and read as: progressive opacification of the left hemithorax which is now homogeneously opaque; findings could represent a large effusion and/or complete collapse of the left lung. The resident team evaluated the patient again at bedside. Patient's breathing was unchanged from a few hours earlier. He was now receiving 6L of oxygen via a venti-mask. STAT ordered labs were still not available. Dr. Vazquez, intensive care, was called. He asked for a CT chest to be ordered at that time. [facility] arranged. Sobeida Garcia MD R1 Mar 09, 2017 04:34
[2017-03-09 04:50] LABS: AUTOMATED NEUTROPHIL # 5.8 TH/MM3 (1.8-7.7); BASOPHIL % 0.2 % (0.0-2.0); EOSINOPHIL # 0.3 TH/MM3 (0-0.4); EOSINOPHIL % 3.1 % (0.0-4.0); HEMATOCRIT 31.3 % (39.0-51.0); HEMO FLAGS DIFF FINAL; LYMPH % 22.9 % (9.0-44.0); MEAN CELL VOLUME 102.6 FL (80.0-100.0); MEAN CORPUSCULAR HEMOGLOBIN 34.6 PG (27.0-34.0); MEAN CORPUSCULAR HGB CONC 33.7 % (32.0-36.0); MONO % 8.7 % (0.0-8.0); NEUT % 65.1 % (16.0-70.0); PLATELET COUNT 135 TH/MM3 (150-450); RED BLOOD COUNT 3.05 MIL/MM3 (4.50-5.90); RED CELL DISTRIBUTION WIDTH 14.1 % (11.6-17.2); WHITE BLOOD COUNT 8.9 TH/MM3 (4.0-11.0)
[2017-03-09] MEDS ORDERED: ETOMIDATE 20 MG/10 ML VIAL ONE (05:19)
[2017-03-09] MEDS ORDERED: ROCURONIUM INJ 50 MG/5 ML VIAL IV ONE (05:30)
[2017-03-09] MEDS ORDERED: ETOMIDATE 40 MG/20 ML VIAL IV PUSH ONE (05:30)
--- NOTE | 2017-03-09 05:42 | RADRPT ---
EXAM DATE/TIME: 03/09/2017 04:59 [facility] COMPARISON: CT THORAX W/O CONTRAST, February 09, 2011, 8:18. INDICATIONS : Shortness of breath. RADIATION DOSE: 5.73 CTDIvol (mGy) MEDICAL HISTORY : Hypertension. Renal failure. Myocardial infarction. SURGICAL HISTORY : Sternum surgery. ENCOUNTER: Initial ACUITY: 1 day PAIN SCALE: 0/10 LOCATION: chest TECHNIQUE: Volumetric scanning of the chest was performed. Using automated exposure control and adjustment of t he mA and/or kV according to patient size, radiation dose was kept as low as reasonably achievable to obtain optimal diagnostic quality images. DICOM format image data is available electronically for r eview and comparison. Follow-up recommendations for detected pulmonary nodules are based at a minimum on nodule size and pa tient risk factors according to Fleischner Society Guidelines. FINDINGS: LUNGS: Marked atelectasis of the left lung with only a small remaining aerated section in the left upper hem ithorax. There is some right basilar atelectasis as well. Patchy airspace disease in the apices. PLEURAE: Bilateral pleural effusions. Small on the right and moderately large on the left. MEDIASTINUM: Atherosclerotic calcification of the coronary arteries. AXILLAE: Within normal limits. No lymphadenopathy. MUSCULOSKELETAL: Within normal limits for patient age. MISCELLANEOUS: The visualized upper abdominal organs demonstrate no acute abnormality. CONCLUSION: 1. Marked volume loss in the left hemithorax with near-complete collapse of the left lower lobe/lingu la. There is still some aeration in the left upper lung. Some of this is due to the moderate sized le ft-sided effusion although there may be element of airway obstruction/mucus plugging as well. 2. Small right-sided effusion with become atelectatic changes in the right base. 3. Patchy biapical airspace disease.. Tone Henry MD on March 09, 2017 at 5:36 Board Certified Radiologist. This report was verified electronically.
--- NOTE | 2017-03-09 06:29 | PD.PROCEDR ---
Procedure Note Procedure DATE: 03/09/2017 Bronchoscopy with LAVAGE INDICATION: Acute respiratory failure/hypoxemic with mucous plugging CONSENT Informed consent for procedure was obtained DESCRIPTION OF THE PROCEDURE The patient was placed in supine position. The ventilator was ACV 16/500/5/100 %. Patient was intubated at 50 mEq rocuronium. Sedated with propofol at 20 mics grams per kilo per minute and fentanyl drip at 50 mg an hour. Saturations 100%. I entered the 8.0 ET tube with flexible bronchoscopy. There was thick white secretions throughout ET tube. The jared was sharp. The left and main right bronchus were apparent with copious thick white secretions. These were lavaged copiously with multiple saline washings. The left upper lobe/lingula and left lower lobe were investigated to the second subsegments. No masses. Mucosa was normal. In the left main bronchus, 30 cc sterile saline and injected with return small mucous plugs. Sent for appropriate sample see orders. ESTIMATED BLOOD LOSS: Minimal COMPLICATIONS: No apparent complications. STAT chest x-ray pending at time of dictation Barrington Vazquez MD Mar 09, 2017 06:29
[2017-03-09] MEDS: fentaNYL DRIP 250 ML IV PRN (06:30)
[2017-03-09] MEDS: PROPOFOL 1000 MG/100 ML INJ 100 ML IV PRN ×4 (06:30→19:48)
--- NOTE | 2017-03-09 06:30 | PD.PROCEDR ---
Procedure Note Procedure DATE: 03/09/2017 PROCEDURE: Orotracheal intubation INDICATION: Respiratory failure DETAILS OF PROCEDURE The patient was placed in optimal position and preoxygenated with 100% FiO2 via bag valve mask. At the start oxygen saturation was 100%. The patient was administered 20 mg etomidate IV and 50 mg rocuronium IV. I entered the oropharynx with a size 3 Len laryngoscope blade and was only able to observe the epiglottis. Monroe scope was broken. Used #4 Martines blade to lift the epiglottis and ventricle visualized the vocal cords. On single attempt a size 10 cuffed endotracheal tube was passed through the vocal cords. Correct tube location was confirmed with end tidal CO2 detector and by auscultating over bilateral lung thomas. The endotracheal tube was secured with adhesive tape at a depth of 24 cm at the lips. The patient was connected to the ventilator. The patient tolerated the procedure well without any apparent complications. Oxygen saturations were maintained greater than 90% all times. STAT chest x-ray pending at time dictation. Barrington Vazquez MD Mar 09, 2017 06:30
[2017-03-09 06:42] LABS: BLOOD GAS BASE EXCESS 10.4 mmol/L (-2-2); BLOOD GAS CARBOXYHEMOGLOBIN 1.7 % (0-4); BLOOD GAS HCO3 34 mmol/L (22-26); BLOOD GAS METHEMOGLOBIN 0.6 % (0-2); BLOOD GAS O2 HGB SATURATION 98 % (90-100); BLOOD GAS OXYGEN CONTENT 15.5 Vol % (12.0-20.0); BLOOD GAS PCO2 44 mmHg (38-42); BLOOD GAS PO2 271 mmHg (61-120); BLOOD GAS TOTAL HGB 10.9 G/DL (12.0-16.0); CRITICAL VALUE NO; OXYGEN DEVICE VENTILATOR; TEMP CORR TO 98.6
[2017-03-09 06:43] LABS: DRAW SITE LT RADIAL; FIO2 100 %; NUMBER OF ARTERIAL PUNCTURES 1
[2017-03-09 06:44] LABS: STAT NO; ULNAR PULSE PRESENT
--- NOTE | 2017-03-09 06:46 | HHI.CCPN ---
Subjective Remarks/Hospital Course This is a 57-year-old male that was found down and admitted to this hospital 02/23/2017. Urine tox screen revealed patient was positive for benzodiazepines and cocaine at that time. Since admission the patient has been on a [facility] protocol, neurology has been consulted Dr. Wayne, with continued supportive care. Over the last 48 hours the patient was noted to have elevation in his creatinine with a significant decrease in urine output acute renal failure nephrology was consulted the patient continues on gentle diuresis and received 80 mg of Lasix IV this afternoon and is currently on sodium bicarbonate infusion at 110 cc/an hour. Due to the patient's respiratory insufficiency, and altered mental status concern for possible continued respiratory decompensation the patient was transferred to the ICU, and critical care was consulted for management. Upon entering the patient's room the patient was noted to be lethargic having received 4 mg of Ativan in the last 4 hours, but opens eyes to sternal rub. The patient was noted to have O2 saturation of 95% on O2 via nasal cannula at 5 L with no accessory respiratory efforts. Stat ABG was ordered pending, to rule out CO2 narcosis. Since admission to ICU the patient was noted to diuresis of 700 cc. 03/03: Afebrile. The patient did not receive any Ativan since 3 PM on 03/02/17. The patient rested well overnight, eventually waking and responding. This a.m. the patient's noted to be sitting up in bed, alert and responsive. Librium has been added to medication regimen for alcohol withdrawal. Noted to be oriented to date of unable to provide name or place at this time. Essential tremors, fine tremors noted. The patient severely weak and unable to feed self without assistance. The patient's diet was advanced to regular diet, tolerating well, 100% consumption. PO meds were held since admission to ICU secondary to lethargy, all by mouth meds resumed this a.m.. The patient currently is compliant following commands, inappropriate responses, with noted incomprehensible words, language at times. Patient is noted to be very weak. Nasal cannula O2 has been weaned down to approximately 3 L, the patient appears in no respiratory distress. Subjective: 03/09: Reconsulted secondary acute respiratory failure. Chest x-ray earlier in the morning revealed collapse versus large pleural effusion left side. Patient oxygen requirements had increased from 4 L to a nonrebreather mask. CT thorax revealed likely mucous plugging/collapsed lung left side. Small to moderate left pleural effusion. Patient was combative upon arrival ICU in place in soft restraints. Due to mental status/mucous plugging patient was electively intubated using 20 mg etomidate and 50 mg, rocuronium. Patient was prompt aureus which revealed thick white mucous plugging in the left and right mainstem. These were lavaged to left upper lobe/lingula and left lower lobe, right upper middle and lower lobes. Samples were sent see orders. Currently sedated with propofol and fentanyl drips. Objective Vital Signs Date Time Temp Pulse Resp B/P (MAP) Pulse Ox O2 Delivery O2 Flow Rate FiO2 03/09/17 04:30 94 Venturi Mask 6.00 35 03/09/17 03:55 96.6 80 18 129/80 (96) Intake and Output 03/09/17 03/09/17 03/10/17 08:00 16:00 00:00 Intake Total 886 ml Balance 886 ml Result Diagram: 03/09/17 0100 03/08/17 0747 Other Results Microbiology Date/Time Source Procedure Growth Status 03/02/17 10:56 Blood Peripheral Aerobic Blood Culture - Final NO GROWTH IN 5 DAYS Complete 03/02/17 10:56 Blood Peripheral Anaerobic Blood Culture - Final NO GROWTH IN 5 DAYS Complete 03/02/17 11:50 Stool Stool Stool Occult Blood (LILLY) - Final HEMOCCULT NEGATIVE Complete 03/02/17 09:20 Urine Catheterized Urine Urine Culture - Final NO GROWTH IN 48 HOURS. Complete Imaging Last Impressions Shoulder X-Ray 03/05/17 0000 Signed Impressions: Service Date/Time: Sunday, March 05, 2017 20:57 - CONCLUSION: No acute disease. Rick Sanford MD Abdomen/Pelvis CT 03/04/17 0000 Signed Impressions: Service Date/Time: Saturday, March 04, 2017 10:31 - CONCLUSION: 1. There is no hydronephrosis or renal abnormality to explain the renal failure. However, there is subtle high density stranding along the medial and upper pole of the right kidney. Suggest followup CT to assess for change. 2. Abnormal mass arising from or abutting the spleen in the left upper quadrant measuring up to 7.5 cm. It contains a small amount of calcification. Suggest correlating with any prior imaging study that could offer additional characterization. If none are available suggest followup imaging to confirm stability and consider contrast enhanced CT or MRI for further characterization when patient condition permits. 3. Small bilateral pleural effusions, left larger than right, with associated compressive atelectasis. 4. Severe coronary artery calcification. Kilo Coulter MD Chest X-Ray 03/02/17 0000 Signed Impressions: Service Date/Time: Thursday, March 02, 2017 08:18 - CONCLUSION: Increasing consolidative changes left base. Nasir Mack MD FACR Renal Ultrasound 02/27/17 0000 Signed Impressions: Service Date/Time: Monday, February 27, 2017 20:36 - CONCLUSION: 1. Mildly dilated left renal collecting system. Kidneys normal in size. Trace free fluid. Ruy Hussein MD Brain MRI 02/25/17 0000 Signed Impressions: Service Date/Time: Saturday, February 25, 2017 12:37 - CONCLUSION: Atrophy, periventricular changes without evidence for acute infarction. Nasir Mack MD FACR Head CT 02/23/17 0000 Signed Impressions: Service Date/Time: Thursday, February 23, 2017 07:38 - CONCLUSION: No significant change has occurred. Maximus Pavon MD Objective Remarks GENERAL: 57-year-old male, combative on nonrebreather mask SKIN: Warm and dry. Clean gauze dressing right forearm HEAD: Atraumatic. Normocephalic. EYES: Pupils equal and round around 2 mm bilaterally and reactive. No scleral icterus. No injection or drainage. ENT: No nasal bleeding or discharge. Mucous membranes pink and moist. NECK: Trachea midline. No JVD. CARDIOVASCULAR: RRR. S1, S2 no S4. Without murmur RESPIRATORY: Diminished breath sounds left lung thomas. Few crackles appreciated right lower lobe. No wheezing GASTROINTESTINAL: Abdomen soft, non-tender, nondistended. Hypoactive bowel sounds appreciated MUSCULOSKELETAL: Extremities without without significant peripheral edema. No obvious deformities. Right forearm dressing, noted cellulitis NEUROLOGICAL: Cranial nerves II through XII grossly intact. Moving all 4 extremity spontaneously. Withdraws to stimulation. Date of Insertion: Feb 23, 2017 A/P Assessment and Plan Neuro/Psych: Admission with EtOH withdrawal - likely completed Polysubstance abuse including cocaine and benzodiazepines Acute delirium/multifactorial likely toxic metabolic secondary to hypoxia Polyneuropathy of critical illness Patient is currently on propofol/fentanyl drips for sedation/analgesia while intubated Goal of RASS -2 Daily sedation vacation Patient is followed by Dr. Wayne/urology. EEG's reveal moderate encephalopathy no epileptiform activity Previous on Seroquel 25 mg at night and Haldol when necessary Seizure precautions Continue thiamine 100 mg daily Psychiatry consulted-complete evaluation to determine adequacy for self-care Respiratory: Acute hypoxemic respiratory failure secondary to aspiration PRVC 16/500/1//100 Ventilator bundle Albuterol/ipratropium aerosols every 4 hours with albuterol aerosols every 2 hours. Dyspnea At hypertonic saline aerosols every 4 hours 5 days to thin secretions Follow-up chest x-ray CT thorax from 03/09 revealed collapse left upper/lingula lobes with significant secretions left main bronchus. Cardiovascular: Hypertension Currently on amlodipine 10 mg daily, clonidine 0.1 mg 3 times a day and metoprolol 5 mg by mouth twice a day for hypertension Maintain MAP > 65 mmHG Currently on D5 water at 70 cc an hour. Renal: Acute kidney injury secondary to ATN Nephrology following Dr. Martinez Accurate I's and O's Monitor urine output No signs of hydronephrosis on renal imaging Urine eosinophils negative FEN/GI: Mild protein calorie malnutrition HYPERKALEMIA Hep C AB + Patient is currently nothing by mouth NGT to JOSEE Lansoprazole for GI prophylaxis Docusate sodium senna 1 tablet twice a day for bowel regimen AM potassium pending Heme/ID: Macro Anemia Thrombocytopenia Pneumonia Patiently pancultured including bronchoscopy washings, UA. Blood cultures 2 performed Currently on cefepime, Flagyl and azithromycin renally dosed Endocrine: Sliding-scale insulin to maintain euglycemia/low regimen with novulog every 6 hours Prophylaxis: GI Prophylaxis Lansoprazole DVT Prophylaxis -- SCDs/heparin subcutaneous Lines: Peripheral IVs providing adequate access at this time Critical care time 30 minutes Barrington Vazquez MD Mar 09, 2017 06:46
[2017-03-09] MEDS ORDERED: NITROGLYCERIN 2% OINT 1 GM PACKET TOPICAL PRN (07:00)
[2017-03-09] MEDS ORDERED: hydrALAZINE HCL 20 MG/ML VIAL IV PUSH PRN (07:00)
--- NOTE | 2017-03-09 07:07 | RADRPT ---
EXAM DATE/TIME: 03/09/2017 06:27 [facility] COMPARISON: CHEST SINGLE AP, March 09, 2017, 0:36. INDICATIONS : Evaluate intubation- post Bronch MEDICAL HISTORY : None. SURGICAL HISTORY : None. ENCOUNTER: Subsequent ACUITY: 2 weeks PAIN SCORE: Non-responsive. LOCATION: Bilateral chest FINDINGS: There is improved aeration of the left lung. Moderate left effusion and patchy bilateral airspace dis ease. There is cardiomegaly. Endotracheal tube tip at the inferior margin of the clavicles. Enteric t ube side-port at the esophagogastric junction expected location. Left fourth and sixth rib fractures are noted as before. CONCLUSION: Improved aeration. Maximus Pavon MD on March 09, 2017 at 7:05 Board Certified Radiologist. This report was verified electronically.
--- NOTE | 2017-03-09 07:08 | RADRPT ---
EXAM DATE/TIME: 03/09/2017 06:31 [facility] COMPARISON: No previous studies available for comparison. INDICATIONS : Evaluate OG tube MEDICAL HISTORY : None. SURGICAL HISTORY : None. ENCOUNTER: Subsequent ACUITY: 2 weeks PAIN SCORE: Non-responsive. LOCATION: Bilateral Abdomen FINDINGS: The side port of the enteric tube overlies the expected location of the distal esophagus, distal tip of the tube overlies the expected location of the proximal stomach. There is left lower lobe consolid ation and left effusion. CONCLUSION: Enteric tube as above. Maximus Pavon MD on March 09, 2017 at 7:06 Board Certified Radiologist. This report was verified electronically.
[2017-03-09 07:12] LABS: BLOOD UREA NITROGEN 35 MG/DL (7-18); GLOMERULAR FILTRATION RATE 20 ML/MIN (>89)
[2017-03-09 07:13] LABS: ALKALINE PHOSPHATASE 61 U/L (45-117); ALT (GPT) 68 U/L (12-78); ANION GAP 6 MEQ/L (5-15); AST (GOT) 68 U/L (15-37); BICARBONATE 36.5 MEQ/L (21.0-32.0); CHLORIDE 95 MEQ/L (98-107); POTASSIUM 3.9 MEQ/L (3.5-5.1); SODIUM (NA) 137 MEQ/L (136-145); TOTAL BILIRUBIN ADULT 0.5 MG/DL (0.2-1.0)
[2017-03-09] MEDS: RESP: SODIUM CHLORIDE 3% 4 ML NEB NEB SCH ×4 (08:46→20:49)
[2017-03-09] MEDS: METOPROLOL TARTRATE 100 MG TAB PO SCH ×2 (09:00→21:00)
[2017-03-09] MEDS ORDERED: PANTOPRAZOLE SOD 40 MG DELAYED RELEASE TAB PO SCH (09:00)
[2017-03-09] MEDS: NYSTAT/DIPHENHY/LIDO MOUTHWASH (Adult) 120ML SWISH-SWAL SCH ×4 (09:00→21:00)
--- NOTE | 2017-03-09 09:10 | RADRPT ---
EXAM DATE/TIME: 03/09/2017 00:36 [facility] COMPARISON: CHEST SINGLE AP, March 02, 2017, 8:18. INDICATIONS : Shortness of breath. MEDICAL HISTORY : None. SURGICAL HISTORY : None. ENCOUNTER: Subsequent ACUITY: 2 weeks PAIN SCORE: Non-responsive. LOCATION: chest FINDINGS: A single view of the chest demonstrates increasing opacification of the left hemithorax which is now completely opacified. Right lung remains clear. Degenerative spurring of the dorsal spine.. CONCLUSION: Progressive opacification of the left hemithorax which is now homogeneously opaque. Findings cou ld represent a large effusion and/or complete collapse of the left lung. Tone Henry MD on March 09, 2017 at 1:12 Board Certified Radiologist. This report was verified electronically.
[2017-03-09] MEDS: MULTIVITAMIN TAB PO SCH (09:57)
[2017-03-09] MEDS: hydrALAZINE HCL 25 MG TAB PO SCH ×2 (09:57→21:00)
[2017-03-09] MEDS: LANSOPRAZOLE SOLUTAB 30 MG TAB NG SCH (09:57)
[2017-03-09] MEDS: THIAMINE HCL 100 MG TAB PO SCH (09:57)
[2017-03-09] MEDS: cloNIDine HCL 0.1 MG TAB PO SCH ×3 (09:57→18:41)
[2017-03-09] MEDS: SODIUM CHLORIDE 0.9% FLUSH 10 ML FLUSH IV FLUSH SCH ×2 (09:57→21:00)
[2017-03-09] MEDS: metroNIDAZOLE 500 MG INJ 100 ML IV SCH ×2 (09:59→18:41)
[2017-03-09] MEDS: CEFEPIME INJ 2,000 MG in SODIUM CHLORIDE 0.9% INJ 100 ML IV SCH (09:59)
[2017-03-09] MEDS: AZITHROMYCIN INJ 500 MG in SODIUM CHLOR 0.9% 250 ML INJ 250 ML IV SCH (09:59)
[2017-03-09] MEDS: CHLORHEXIDINE 0.12% (ORAL KIT) 15 ML CUP MT SCH ×2 (09:59→20:00)
[2017-03-09 10:09] LABS: BRONCHOAVEOLAR HISTIOCYTES 1 %; BRONCHOAVEOLAR NEUTROPHILS 83 %
[2017-03-09 10:18] LABS: BRONCHOALVEOLAR LAVAGE RBC 34 /MM3; BRONCHOALVEOLAR LAVAGE WBC 31 /MM3
[2017-03-09 10:20] LABS: BRONCHOAVEOLAR LYMPHOCYTES 0 %
--- NOTE | 2017-03-09 10:34 | HHI.HCPN ---
Mr. Cuevas transferred to [facility] overnight. Palliative care following up to assist. In further review of records additional potential family identified. Accurints requested again on these individuals: mom: Steve Cuevas-- (obituary found via google search) additional family information obtained spouse: Meenu Cuevas sister: Trixie Durand (last known in [facility]) #[phone] (just rings no answer no vm) potential match found on social media, private message sent requesting call sister: Lore Darling (last known in [place], [place]) #[phone] (vm for "caesar?" left message requesting call back) potential match living in [facility] found on social media, private message sent requesting call Brother: Vito Cuevas #[phone] (just rings no answer no vm) potential match living in [facility] found on social media, private message sent requesting call Niece/nephew: Yobany Phong (no number w/ google search) and Elvia Phong [employer], wrong number) relationship unknown: Chepe Dewitt possible brother: Chepe Cuevas Palliative care COD[facility]IER telephoned individuals with numbers in chart, see note for information. Either wrong numbers or no answer and unable to leave a message. Awaiting accurints on updated family information. Anna Quach, LARD REFINER Mar 09, 2017 10:34
[2017-03-09] MEDS: ARTIFICIAL TEARS OPTH SOLN 15 ML BTL EACH EYE SCH ×2 (12:15→22:00)
[2017-03-09] MEDS: HEPARIN SODIUM - SQ 10,000 UNITS/ML VIAL SQ SCH ×2 (12:15→23:22)
--- NOTE | 2017-03-09 14:06 | HHI.FPPN ---
Subjective Remarks Mr Cuevas had a progressive respiratory decompensation last night w/O2 sats to 88 % and chest CT concerning for lung collapse vs . The radiation protection specialist was consulted and Dr Vazquez ordered pt transfer to ICU whereupon pt was noted to be combative and was placed in soft restraints, then intubated and a bronchial lavage was performed, removing mucus plugging in left and right main bronchi. Pt is afebrile and breathing comfortably w/O2 sat 94% on 6L venturi mask at 40% FiO2 this morning. He is still intubated and sedated with propofol and fentanyl. (Eze Castellanos MD R1) Objective Vitals Vital Signs Date Time Temp Pulse Resp B/P (MAP) Pulse Ox O2 Delivery O2 Flow Rate FiO2 03/09/17 12:44 100 30 03/09/17 08:51 99 40 03/09/17 06:40 100 100 03/09/17 06:20 100 100 03/09/17 04:30 94 Venturi Mask 6.00 35 03/09/17 03:55 96.6 80 18 129/80 (96) 90 03/09/17 03:25 90 Nasal Cannula 5.00 03/09/17 00:30 94 Nasal Cannula 5.00 03/08/17 23:33 97.3 71 18 109/77 (88) 94 03/08/17 20:00 Nasal Cannula 2.00 03/08/17 19:46 94 Nasal Cannula 4.00 03/08/17 18:55 97.9 90 18 117/88 (98) 97 03/08/17 15:43 96.6 91 19 124/95 (105) 94 I/O 03/08/17 03/08/17 03/08/17 03/09/17 03/09/17 03/09/17 07:00 15:00 23:00 07:00 15:00 23:00 Intake Total 674 ml 650 ml 240 ml 886 ml Output Total 150 ml 600 ml Balance 674 ml 500 ml -360 ml 886 ml Intake Oral 120 ml 650 ml 240 ml IV Total 554 ml 886 ml Output Urine Total 150 ml 600 ml # Voids 2 5 2 # Bowel Movements 0 1 (Eze Castellanos MD R1) Result Diagram: 03/09/17 0100 03/09/17 0100 Imaging Last 24 hours Impressions Chest X-Ray 03/09/17 0000 Signed Impressions: Service Date/Time: Thursday, March 09, 2017 06:27 - CONCLUSION: Improved aeration. Maximus Pavon MD Chest X-Ray 03/09/17 0000 Signed Impressions: Service Date/Time: Thursday, March 09, 2017 00:36 - CONCLUSION: Progressive opacification of the left hemithorax which is now homogeneously opaque. Findings could represent a large effusion and/or complete collapse of the left lung. Tone Henry MD Chest CT 03/09/17 0000 Signed Impressions: Service Date/Time: Thursday, March 09, 2017 04:59 - CONCLUSION: 1. Marked volume loss in the left hemithorax with near-complete collapse of the left lower lobe/lingula. There is still some aeration in the left upper lung. Some of this is due to the moderate sized left-sided effusion although there may be element of airway obstruction/mucus plugging as well. 2. Small right-sided effusion with become atelectatic changes in the right base. 3. Patchy biapical airspace disease.. Tone Henry MD Abdomen X-Ray 03/09/17 0000 Signed Impressions: Service Date/Time: Thursday, March 09, 2017 06:31 - CONCLUSION: Enteric tube as above. Maximus Pavon MD Objective Remarks GENERAL: male, lying in bed, awake and moves limbs spontaneously despite restraints, responds to questions SKIN: Bilateral upper extremities with multiple well-healing scabs; no appreciated erythema or warmth appreciated today. HEENT: Pupils grossly symmetrical; EOM grossly intact; dry MM CARDIOVASCULAR: RRR without appreciable murmurs. grossly normal perfusion. No edema RESPIRATORY: normal rate; more clear breath sounds bilaterally, without wheezing GASTROINTESTINAL: Abdomen soft, non-tender, nondistended; + bowel sounds MUSCULOSKELETAL: No cyanosis or edema. NEURO: Patient is alert and oriented to person but not place or time or situation. No focal CN defects or peripheral motor/sensory focal defects. Patient attempts to answer questions but is still difficult to understand. Medications and IVs Current Medications Medications (Trade) Dose Ordered Sig/Veronika Route Start Time Stop Time Status Last Admin (NS Flush) 2 ml UNSCH PRN IV FLUSH 02/23/17 10:00 (NS Flush) 2 ml BID IV FLUSH 02/23/17 21:00 03/09/17 09:57 (Zofran Inj) 4 mg Q6H PRN IV 02/23/17 10:00 (Catapres) 0.1 mg Q6H PRN PO 02/23/17 10:00 03/06/17 13:29 (Heparin Inj) 5,000 units Q12H SQ 02/23/17 11:00 03/09/17 12:15 (D50w (Vial) Inj) 50 ml UNSCH PRN IV 02/23/17 10:15 (Glucagon Inj) 1 mg UNSCH PRN OTHER 02/23/17 10:15 (Ativan Inj) 1 mg Q3H PRN IV PUSH 03/02/17 18:30 Future Hold 03/04/17 08:41 (Haldol Inj) 2 mg Q15M PRN IM 03/02/17 22:45 Future hold 03/03/17 20:49 (Romazicon Inj) 0.2 mg Q1M PRN IV PUSH 03/02/17 22:45 (Theragran) 1 tab DAILY PO 03/04/17 09:00 03/09/17 09:57 (Haldol Inj) 1 mg Q8H PRN IM 03/04/17 12:45 Future hold 03/05/17 01:38 (Chloraseptic Randolph) 2 spray Q2H PRN OROPHARYNG 03/06/17 10:00 (Magic Mouthwash Adult Liq) 10 ml QID SWISH-SWAL 03/06/17 13:00 03/07/17 22:43 (Duoneb Neb) 1 ampule Q4HR NEB NEB 03/06/17 20:00 03/09/17 12:48 (Apresoline) 10 mg QID PRN PO 03/06/17 21:00 Future hold 03/07/17 04:22 Dextrose 1,000 ml @ 70 mls/hr [id number] IV 03/07/17 14:15 03/08/17 20:35 (Norvasc) 10 mg DAILY PO 03/09/17 09:00 03/09/17 09:57 (Vitamin B1) 100 mg DAILY PO 03/08/17 09:15 03/09/17 09:57 (Lopressor) 100 mg Q12HR PO 03/08/17 21:00 03/08/17 20:35 (Catapres) 0.1 mg TID PO 03/08/17 13:00 03/09/17 12:15 (Apresoline) 25 mg Q12HR PO 03/08/17 21:00 03/09/17 09:57 (Peridex 0.12% Liq) 15 ml BID@08,20 MT 03/09/17 08:00 03/09/17 09:59 Propofol 100 ml @ 2.367 mls/ hr TITRATE PRN IV 03/09/17 05:30 03/09/17 10:00 Fentanyl Citrate 250 ml @ 5 mls/hr TITRATE PRN IV 03/09/17 05:30 03/09/17 06:30 (Albuterol Neb) 2.5 mg Q2HR NEB PRN NEB 03/09/17 06:15 (Sodium Chloride 3% Neb) 2 ml Q4HR NEB NEB 03/09/17 08:00 03/14/17 07:59 03/09/17 12:48 Cefepime HCl 2000 mg/Sodium Chloride 100 ml @ 200 mls/hr DAILY IV 03/09/17 09:00 03/09/17 09:59 Azithromycin 500 mg/Sodium Chloride 250 ml @ 250 mls/hr Q24H IV 03/09/17 08:00 03/09/17 09:59 Metronidazole 100 ml @ 100 mls/hr Q8H IV 03/09/17 10:00 03/09/17 09:59 (Prevacid Odt) 30 mg DAILY NG 03/09/17 09:00 03/09/17 09:57 (Tears Naturale Opth Soln) 1 drop Q8HR EACH EYE 03/09/17 14:00 03/09/17 12:15 (Apresoline Inj) 10 mg Q1HR PRN IV PUSH 03/09/17 07:00 (Nitroglycerin 2% Oint) 2 inch Q6HR PRN TOPICAL 03/09/17 07:00 (Eze Castellanos MD R1) Date of Insertion: Feb 23, 2017 (Eze Castellanos MD R1) A/P Assessment and Plan 57-year-old white male with past medical history of alcohol withdrawal presented to the ED with hypoglycemia and altered mental status; patient has had progressively worsening renal function and is currently being worked up for renal failure and continued altered mental status. Overnight, pt required intubation and sedation for respiratory distress and CT with opacification of the left lung concerning for left lung collapse vs mucus plugging. -Pt intubated and sedated on propofol/fentanyl as managed by radiation protection specialist Discharge Planning Pending workup for declining renal function Discussing with case management regarding placement and establish guardianship. Possibly SNF (Eze Castellanos MD R1) Attending Attestation Patient seen and examined. Case reviewed and discussed with the resident team. Agree with plan of care as discussed with me and documented in the resident note. sadly, Mr Cuevas deteriorated overnight. he has been too confused to give a useful history in some days or really since admission. appreciate help of Director Of Research And Development especially with his mucus plugging. he was on the acapella machine but probably has not been coughing properly for awhile (Betzaiad Connolly MD) Problem List: (1) Mucus plugging of bronchi ICD Codes: J98.09 - Other diseases of bronchus, not elsewhere classified Status: Acute Plan: Progressive worsening of respiratory status 03/09 requiring move to ICU and intubation/sedation and bronchial lavage to remove mucous plugs from both left and right mainstem bronchi -Cx of bronchial washings pending for GS, AFB, Fungal (2) Altered mental status ICD Codes: R41.82 - Altered mental status, unspecified Status: Acute Plan: Patient seems to have improved in response to decreasing sedation. Patient continues to be difficult to understand. Will need guardianship or competence. -Will continue to treat agitation taper CIWA -Stopped Librium -Stopped Ativan 1mg IV for agitation (patient given 1mg today prior to CT for sedation) -Haldol 1mg PRN q8hrs for agitation/psychosis -Started Seroquel 50 mg by mouth daily at bedtime, but this oversedated the patient. Decreased to Seroquel 25 mg by mouth daily at bedtime. 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 -Continue supportive treatment -Recommend judicious benzodiazepine usage -May benefit from some type of extended care facility -Occupational therapy recommended OT at rehabilitation (PT recommended OT) -ST consulted -regular and thin liquids per ST. patient is dependent with total help required. -Continue IVF while not having adequate intake -Seizure precautions Impression: AMS initially suspected secondary to alcoholism; persistent UDS positive for Benzos and Cocaine Brain MRI on 02/25- atrophy, periventricular changes without evidence for acute infarction Head CT on admission- no significant change EEG- Mild background slowing without epileptiform features, may be mild encephalopathic process Ammonia 20, RPR nonreactive CMP on admission with mild hyponatremia (134), transaminase elevations, calcium of 8.1 Hep panel pending Thiamine level high at 325 (3) SAQIB (acute kidney injury) ICD Codes: N17.9 - Acute kidney failure, unspecified Status: Acute Plan: Creatinine finally downtrending. -Nephrology consulted -Suspect ATN, refractory to fluids, likely in the context of drug use, maybe vancomycin, or other etiology -Increase UOP -Monitor BMP -Discontinue IVF with Bicarbonate (D5 w/ 2 amp bicarb at 70ml/hr) -Stopped Albumin 25 g IV every 12hrs scheduled -CT abdomen/pelvis ordered to further evaluate etiology of renal dysfunction -No hydronephrosis. Subtle high density stranding medial/upper right kidney. Abnormal mass arising from/abutting spleen LUQ measuring up to 7.5 cm with small amount of calcification. Discussed with radiologist. Likely from previous trauma. No further workup indicated. Impression: Patient with SAQIB. Creatinine trended: 0.86 on admission -> 3.21 on 03/09 (has been >3 since 02/27) Suspect intrinsic cause as Cr elevation refractory to fluid supplementation, BUN /Cr ratio <20/1, and catheterized Previously on Vancomycin-> discontinued Renal US 02/27 with mild L hydronephrosis; normal kidneys No urine eosinophils Urine random Cr 41.6 Urine random sodium 97 (4) PNA (pneumonia) ICD Codes: J18.9 - Pneumonia, unspecified organism Status: Acute Plan: -Continue antibiotic therapy from 03/02 - 03/07 for 5-6 days to treat pneumonia -Azithromycin 500mg IV daily -Cefepime 2g IV daily renally dosed -Flagyl 500 mg IV daily renally dosed -Discontinue Solumedrol 40mg IV BID -Continue Duonebs q4h -Continue O2 as needed Impression: 03/02 chest x-ray with increasing consolidative changes in the left base: Patient with symptoms of cough and intermittent low O2 sats requiring NC O2 supplementation Initial blood cultures + for staph hominis; subsequently negative 02/26, 03/02 Sputum cultures not obtained Urine Legionella, strep pneumo negative (5) Atelectasis ICD Codes: J98.11 - Atelectasis Status: Acute Plan: -Chest physiotherapy -Acapella, incentive spirometer -Duonebs q4h Impression: Patient with decreased breath sounds on exam had repeat Chest x-ray that showed left lung atelectasis. Patient not using incentive spirometer. CXR 02/26 with mild LLL airspace disease and atelectasis (6) Hypertension ICD Codes: I10 - Essential (primary) hypertension Status: Chronic Plan: Patient BPs normalized over last 24 hours on current regimen. -Amlodipine 10mg PO daily -Metoprolol 100 mg q12h -Clonidine 0.1mg TID -Clonidine 0.1 mg q6h PRN For SBP >/= 180, DBP >/= 100 -Hydralazine 25 mg q12h -Hydralazine 10 mg IV q1h PRN Impression: Patient with high pressures not being resolved with Ativan. Likely has underlying hypertension. (7) Agitation ICD Codes: R45.1 - Restlessness and agitation Status: Chronic Plan: Pt on CIWA for EtOH withdrawal on admission, now weaned from benzodiazepine therapy and increased agitation -Haldol 1 mg q8h IM -Haldol 2mg q15m PRN (8) FEN Status: Acute Plan: Fluids: gentle IVF with D5W @ 75 ml/hr until tolerating enough PO Electrolytes: Monitor and replace as needed Nutrition: Regular basic diet mechanical soft and boost shakes as supplement GI PPx: Lansoprazole 30 mg NG/day VTE prophylaxis: Heparin 5000 units every 12 hours (Eze Castellanos MD R1) Problem Qualifiers (1) Altered mental status: Qualified Codes: R41.0 - Disorientation, unspecified (2) Hypertension: Qualified Codes: I10 - Essential (primary) hypertension Eze Castellanos MD R1 Mar 09, 2017 14:06 Betzaida Connolly MD Mar 09, 2017 18:07
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
--- NOTE | 2017-03-09 19:02 | HHI.NPPN ---
Subjective History of Present Illness 57-year-old male with the alcohol withdrawal, altered mental status, acute renal failure Additional Remarks Patient was intubated and transferred to ICU had a mucous plug in the left bronchus was also was removed Objective Data Data Vital Signs Date Time Temp Pulse Resp B/P (MAP) Pulse Ox O2 Delivery O2 Flow Rate FiO2 03/09/17 15:50 98 30 03/09/17 12:44 100 30 03/09/17 08:51 99 40 03/09/17 06:40 100 100 03/09/17 06:20 100 100 03/09/17 04:30 94 Venturi Mask 6.00 35 03/09/17 03:55 96.6 80 18 129/80 (96) 90 03/09/17 03:25 90 Nasal Cannula 5.00 03/09/17 00:30 94 Nasal Cannula 5.00 03/08/17 23:33 97.3 71 18 109/77 (88) 94 03/08/17 20:00 Nasal Cannula 2.00 03/08/17 19:46 94 Nasal Cannula 4.00 -: 03/09/17 0100 03/09/17 0100 Microbiology 03/09/17 Fungal Smear, Received Pending 03/09/17 Fungal Culture, Received Pending 03/09/17 Acid Fast Stain - Final, Resulted NO ACID FAST BACILLI SEEN 03/09/17 Mycobacterial Culture, Resulted Pending 03/09/17 Gram Stain - Final, Resulted 03/09/17 Bronchial Culture, Resulted Pending Imaging Last Impressions Chest X-Ray 03/09/17 0000 Signed Impressions: Service Date/Time: Thursday, March 09, 2017 06:27 - CONCLUSION: Improved aeration. Maximus Pavon MD Chest CT 03/09/17 0000 Signed Impressions: Service Date/Time: Thursday, March 09, 2017 04:59 - CONCLUSION: 1. Marked volume loss in the left hemithorax with near-complete collapse of the left lower lobe/lingula. There is still some aeration in the left upper lung. Some of this is due to the moderate sized left-sided effusion although there may be element of airway obstruction/mucus plugging as well. 2. Small right-sided effusion with become atelectatic changes in the right base. 3. Patchy biapical airspace disease.. Tone Henry MD Abdomen X-Ray 03/09/17 0000 Signed Impressions: Service Date/Time: Thursday, March 09, 2017 06:31 - CONCLUSION: Enteric tube as above. Maximus Pavon MD Shoulder X-Ray 03/05/17 0000 Signed Impressions: Service Date/Time: Sunday, March 05, 2017 20:57 - CONCLUSION: No acute disease. Rick Sanford MD Abdomen/Pelvis CT 03/04/17 0000 Signed Impressions: Service Date/Time: Saturday, March 04, 2017 10:31 - CONCLUSION: 1. There is no hydronephrosis or renal abnormality to explain the renal failure. However, there is subtle high density stranding along the medial and upper pole of the right kidney. Suggest followup CT to assess for change. 2. Abnormal mass arising from or abutting the spleen in the left upper quadrant measuring up to 7.5 cm. It contains a small amount of calcification. Suggest correlating with any prior imaging study that could offer additional characterization. If none are available suggest followup imaging to confirm stability and consider contrast enhanced CT or MRI for further characterization when patient condition permits. 3. Small bilateral pleural effusions, left larger than right, with associated compressive atelectasis. 4. Severe coronary artery calcification. Kilo Coulter MD Renal Ultrasound 02/27/17 0000 Signed Impressions: Service Date/Time: Monday, February 27, 2017 20:36 - CONCLUSION: 1. Mildly dilated left renal collecting system. Kidneys normal in size. Trace free fluid. Ruy Hussein MD Brain MRI 02/25/17 0000 Signed Impressions: Service Date/Time: Saturday, February 25, 2017 12:37 - CONCLUSION: Atrophy, periventricular changes without evidence for acute infarction. Nasir Mack MD FACR Head CT 02/23/17 0000 Signed Impressions: Service Date/Time: Thursday, February 23, 2017 07:38 - CONCLUSION: No significant change has occurred. Maximus Pavon MD Physical Exam General Appearance: Malnourished Eyes Eye Exam: Pupils Equal Neck Neck Exam: Neck Supple Pulmonary Resp Exam: Crackles, Rhonchi, Diminished Breath Sounds Cardiology CV Exam: Regular, Normal Sinus Rhythm Gastrointestinal/Abdomen GI Exam: Soft, Non-Tender, Bowel Sounds Present Musculoskeletal MS Exam: Unable to Ambulate MS Remarks left shoulder sub laxation ? dislocated Extremeties Extremities Exam: No Edema Assessment/Plan Problem List: (1) SAQIB (acute kidney injury) ICD Codes: N17.9 - Acute kidney failure, unspecified Status: Acute Plan: Acute renal failure acute tubular necrosis with drug use inc UOP Cr 3.21 has ATN refractory to fluids, possible vanco induced on IVF slow improvement Patient is now intubated he has a left bronchus mucous plug which was removed as fourth and sixth broken drips on x-ray Post bronchoscopy with removal of mucous plug intubated Monitor BMP Getting D5W at 70 cc His urine output is good CT scan abdominal reviewed Subtle high density stranding medial/upper right kidney. Abnormal mass arising from/abutting spleen LUQ measuring up to 7.5 cm with small amount of calcification (2) Alcohol withdrawal ICD Codes: F10.239 - Alcohol dependence with withdrawal, unspecified Status: Chronic Plan: Patient remained in altered mental status (3) Hypertension ICD Codes: I10 - Essential (primary) hypertension Status: Chronic Plan: Patient's blood pressure was labile continue to monitor Problem Qualifiers (1) Alcohol withdrawal: Qualified Codes: F10.231 - Alcohol dependence with withdrawal delirium (2) Hypertension: Qualified Codes: I10 - Essential (primary) hypertension Daryl Martinez MD Mar 09, 2017 19:02
[2017-03-09] MEDS: DEXTROSE 5% IN WATE 1000ML INJ 1,000 ML IV SCH (23:21)
[2017-03-10] VITALS (15 sets, daily range): BP systolic 84–117; BP diastolic 53–77; PULSE 56–90; RESP 12–14; TEMP 98.3–99.1; O2SAT 97–100
[2017-03-10] MEDS: RESP: ALBUTEROL 2.5 MG/IPRATROPIUM 0.5 MG NEB (SCH) NEB ×5 (01:08→17:18)
[2017-03-10] MEDS: RESP: SODIUM CHLORIDE 3% 4 ML NEB NEB SCH ×6 (01:08→20:17)
[2017-03-10] MEDS: metroNIDAZOLE 500 MG INJ 100 ML IV SCH ×3 (02:26→18:03)
[2017-03-10] MEDS: PROPOFOL 1000 MG/100 ML INJ 100 ML IV PRN ×4 (02:29→22:42)
--- NOTE | 2017-03-10 05:22 | RADRPT ---
EXAM DATE/TIME: 03/10/2017 04:07 [facility] COMPARISON: CHEST SINGLE AP, March 09, 2017, 6:27. INDICATIONS : Respiratory failure post bronch yesterday. MEDICAL HISTORY : None. SURGICAL HISTORY : None. ENCOUNTER: Subsequent ACUITY: 2 weeks PAIN SCORE: Non-responsive. LOCATION: Bilateral chest FINDINGS: A single view of the chest demonstrates persistent left basilar consolidation/effusion. There may be some improving aeration in the right base. Heart size is normal. Endotracheal and nasogastric tubes a re stable in position. CONCLUSION: 1. Persistent left basilar consolidation/effusion. 2. Improving aeration in the right base. 3. Stable position of life support tubes. Tone Henry MD on March 10, 2017 at 5:20 Board Certified Radiologist. This report was verified electronically.
[2017-03-10] MEDS: fentaNYL DRIP 250 ML IV PRN (05:40)
[2017-03-10] MEDS: ARTIFICIAL TEARS OPTH SOLN 15 ML BTL EACH EYE SCH ×3 (05:41→22:00)
[2017-03-10 07:32] LABS: AUTOMATED NEUTROPHIL # 4.6 TH/MM3 (1.8-7.7); BASOPHIL % 0.4 % (0.0-2.0); EOSINOPHIL # 0.3 TH/MM3 (0-0.4); EOSINOPHIL % 4.6 % (0.0-4.0); HEMO FLAGS DIFF FINAL; LYMPH % 24.9 % (9.0-44.0); LYMPHOCYTE # 1.9 TH/MM3 (1.0-4.8); MEAN CELL VOLUME 104.3 FL (80.0-100.0); MEAN CORPUSCULAR HEMOGLOBIN 35.6 PG (27.0-34.0); MEAN CORPUSCULAR HGB CONC 34.1 % (32.0-36.0); MONO % 7.8 % (0.0-8.0); NEUT % 62.3 % (16.0-70.0); PLATELET COUNT 125 TH/MM3 (150-450); RED BLOOD COUNT 3.16 MIL/MM3 (4.50-5.90); WHITE BLOOD COUNT 7.5 TH/MM3 (4.0-11.0)
[2017-03-10 07:39] LABS: APTT (PATIENT) 30.5 SEC (24.3-30.1); PROTHROMBIN TIME - PATIENT 11.1 SEC (9.8-11.6)
[2017-03-10 08:16] LABS: ALKALINE PHOSPHATASE 67 U/L (45-117); ALT (GPT) 80 U/L (12-78); AMYLASE 34 U/L (25-115); ANION GAP 7 MEQ/L (5-15); AST (GOT) 103 U/L (15-37); BICARBONATE 32.9 MEQ/L (21.0-32.0); BLOOD UREA NITROGEN 33 MG/DL (7-18); CHLORIDE 99 MEQ/L (98-107); GLOMERULAR FILTRATION RATE 21 ML/MIN (>89); MAGNESIUM 1.8 MG/DL (1.5-2.5); POTASSIUM 3.4 MEQ/L (3.5-5.1); SODIUM (NA) 139 MEQ/L (136-145); TOTAL BILIRUBIN ADULT 0.6 MG/DL (0.2-1.0)
[2017-03-10] MEDS: cloNIDine HCL 0.1 MG TAB PO SCH ×3 (09:00→16:52)
[2017-03-10] MEDS: METOPROLOL TARTRATE 100 MG TAB PO SCH ×2 (09:00→21:00)
[2017-03-10] MEDS: SODIUM CHLORIDE 0.9% FLUSH 10 ML FLUSH IV FLUSH SCH ×2 (09:00→21:00)
[2017-03-10] MEDS: hydrALAZINE HCL 25 MG TAB PO SCH ×2 (09:00→21:00)
[2017-03-10] MEDS: AZITHROMYCIN INJ 500 MG in SODIUM CHLOR 0.9% 250 ML INJ 250 ML IV SCH (09:04)
[2017-03-10] MEDS: THIAMINE HCL 100 MG TAB PO SCH (09:05)
[2017-03-10] MEDS: MULTIVITAMIN TAB PO SCH (09:05)
[2017-03-10] MEDS: NYSTAT/DIPHENHY/LIDO MOUTHWASH (Adult) 120ML SWISH-SWAL SCH ×4 (09:05→22:43)
[2017-03-10] MEDS: LANSOPRAZOLE SOLUTAB 30 MG TAB NG SCH (09:05)
--- NOTE | 2017-03-10 09:05 | HHI.CCPN ---
Subjective Remarks/Hospital Course This is a 57-year-old male that was found down and admitted to this hospital 02/23/2017. Urine tox screen revealed patient was positive for benzodiazepines and cocaine at that time. Since admission the patient has been on a [facility] protocol, neurology has been consulted Dr. Wayne, with continued supportive care. Over the last 48 hours the patient was noted to have elevation in his creatinine with a significant decrease in urine output acute renal failure nephrology was consulted the patient continues on gentle diuresis and received 80 mg of Lasix IV this afternoon and is currently on sodium bicarbonate infusion at 110 cc/an hour. Due to the patient's respiratory insufficiency, and altered mental status concern for possible continued respiratory decompensation the patient was transferred to the ICU, and critical care was consulted for management. Upon entering the patient's room the patient was noted to be lethargic having received 4 mg of Ativan in the last 4 hours, but opens eyes to sternal rub. The patient was noted to have O2 saturation of 95% on O2 via nasal cannula at 5 L with no accessory respiratory efforts. Stat ABG was ordered pending, to rule out CO2 narcosis. Since admission to ICU the patient was noted to diuresis of 700 cc. 03/03: Afebrile. The patient did not receive any Ativan since 3 PM on 03/02/17. The patient rested well overnight, eventually waking and responding. This a.m. the patient's noted to be sitting up in bed, alert and responsive. Librium has been added to medication regimen for alcohol withdrawal. Noted to be oriented to date of unable to provide name or place at this time. Essential tremors, fine tremors noted. The patient severely weak and unable to feed self without assistance. The patient's diet was advanced to regular diet, tolerating well, 100% consumption. PO meds were held since admission to ICU secondary to lethargy, all by mouth meds resumed this a.m.. The patient currently is compliant following commands, inappropriate responses, with noted incomprehensible words, language at times. Patient is noted to be very weak. Nasal cannula O2 has been weaned down to approximately 3 L, the patient appears in no respiratory distress. Subjective: 03/09: Reconsulted secondary acute respiratory failure. Chest x-ray earlier in the morning revealed collapse versus large pleural effusion left side. Patient oxygen requirements had increased from 4 L to a nonrebreather mask. CT thorax revealed likely mucous plugging/collapsed lung left side. Small to moderate left pleural effusion. Patient was combative upon arrival ICU in place in soft restraints. Due to mental status/mucous plugging patient was electively intubated using 20 mg etomidate and 50 mg, rocuronium. Patient was prompt aureus which revealed thick white mucous plugging in the left and right mainstem. These were lavaged to left upper lobe/lingula and left lower lobe, right upper middle and lower lobes. Samples were sent see orders. Currently sedated with propofol and fentanyl drips. 03/10: Tonic seizures today when propofol stopped. Seizures ceased with propofol bolus. Left pneumonia persists but improved aeration after bronch 03/09 Objective Vital Signs Date Time Temp Pulse Resp B/P (MAP) Pulse Ox O2 Delivery O2 Flow Rate FiO2 03/10/17 08:28 100 30 03/10/17 08:28 Ventilator 03/10/17 03:00 56 14 107/71 (83) 03/09/17 19:00 97.7 03/09/17 04:30 6.00 Intake and Output 03/10/17 03/10/17 03/11/17 08:00 16:00 00:00 Intake Total 890 ml Output Total 550 ml Balance 340 ml Result Diagram: 03/10/17 0655 03/10/17 0655 Other Results Microbiology Date/Time Source Procedure Growth Status 03/09/17 18:50 Nasal Aspirate Influenza Types A,B Antigen (LILLY) - Final NEGATIVE FOR FLU A AND B ANTIGEN.... Complete 03/09/17 18:50 Urine Catheterized Urine Streptococcus pneumoniae Antigen (M - Final PRESUMPTIVE NEGATIVE FOR STREPTOCOCCU... Complete 03/09/17 18:50 Urine Clean Catch Legionella Antigen - Final PRESUMPTIVE NEGATIVE FOR LEGIONELLA P... Complete Imaging Last Impressions Shoulder X-Ray 03/05/17 0000 Signed Impressions: Service Date/Time: Sunday, March 05, 2017 20:57 - CONCLUSION: No acute disease. Rick Sanford MD Abdomen/Pelvis CT 03/04/17 0000 Signed Impressions: Service Date/Time: Saturday, March 04, 2017 10:31 - CONCLUSION: 1. There is no hydronephrosis or renal abnormality to explain the renal failure. However, there is subtle high density stranding along the medial and upper pole of the right kidney. Suggest followup CT to assess for change. 2. Abnormal mass arising from or abutting the spleen in the left upper quadrant measuring up to 7.5 cm. It contains a small amount of calcification. Suggest correlating with any prior imaging study that could offer additional characterization. If none are available suggest followup imaging to confirm stability and consider contrast enhanced CT or MRI for further characterization when patient condition permits. 3. Small bilateral pleural effusions, left larger than right, with associated compressive atelectasis. 4. Severe coronary artery calcification. Kilo Coulter MD Chest X-Ray 03/02/17 0000 Signed Impressions: Service Date/Time: Thursday, March 02, 2017 08:18 - CONCLUSION: Increasing consolidative changes left base. Nasir Mack MD FACR Renal Ultrasound 02/27/17 0000 Signed Impressions: Service Date/Time: Monday, February 27, 2017 20:36 - CONCLUSION: 1. Mildly dilated left renal collecting system. Kidneys normal in size. Trace free fluid. Ruy Hussein MD Brain MRI 02/25/17 0000 Signed Impressions: Service Date/Time: Saturday, February 25, 2017 12:37 - CONCLUSION: Atrophy, periventricular changes without evidence for acute infarction. Nasir Mack MD FACR Head CT 02/23/17 0000 Signed Impressions: Service Date/Time: Thursday, February 23, 2017 07:38 - CONCLUSION: No significant change has occurred. Maximus Pavon MD Objective Remarks GENERAL: 57-year-old male, combative on nonrebreather mask SKIN: Warm and dry. Clean gauze dressing right forearm HEAD: Atraumatic. Normocephalic. EYES: Pupils equal and round around 2 mm bilaterally and reactive. No scleral icterus. No injection or drainage. ENT: No nasal bleeding or discharge. Mucous membranes pink and moist. NECK: Trachea midline. Orally intubated. CARDIOVASCULAR: RRR. S1, S2 no S4. Without murmur. No JVD. RESPIRATORY: Diminished breath sounds left lung thomas. No wheezing GASTROINTESTINAL: Abdomen soft, non-tender, nondistended. Active bowel sounds appreciated MUSCULOSKELETAL: Extremities without without significant peripheral edema. No obvious deformities. Right forearm dressing, noted cellulitis NEUROLOGICAL: Tonic seizures involving head, neck, left side. Date of Insertion: Feb 23, 2017 A/P Assessment and Plan Neuro/Psych: Admission with EtOH withdrawal - likely completed Polysubstance abuse including cocaine and benzodiazepines Acute delirium/multifactorial likely toxic metabolic secondary to hypoxia Polyneuropathy of critical illness Patient is currently on propofol/fentanyl drips for sedation/analgesia while intubated Goal of RASS -2 Daily sedation vacation Patient is followed by Dr. Wayne/urology. EEG's reveal moderate encephalopathy no epileptiform activity Previous on Seroquel 25 mg at night and Haldol when necessary Seizure precautions Continue thiamine 100 mg daily Psychiatry consulted-complete evaluation to determine adequacy for self-care Seizures 03/10. Respiratory: Acute hypoxemic respiratory failure secondary to aspiration PRVC 16/500///100 Ventilator bundle Albuterol/ipratropium aerosols every 4 hours with albuterol aerosols every 2 hours. Dyspnea At hypertonic saline aerosols every 4 hours 5 days to thin secretions Follow-up chest x-ray CT thorax from 03/09 revealed collapse left upper/lingula lobes with significant secretions left main bronchus. Improved aeration 03/10 Cardiovascular: Hypertension Currently on amlodipine 10 mg daily, clonidine 0.1 mg 3 times a day and metoprolol 5 mg by mouth twice a day for hypertension Maintain MAP > 65 mmHG D/C D5 water at 70 cc an hour. Renal: Acute kidney injury secondary to ATN Nephrology following Dr. Martinez Accurate I's and O's Monitor urine output No signs of hydronephrosis on renal imaging Urine eosinophils negative FEN/GI: Mild protein calorie malnutrition HYPERKALEMIA Hep C AB + Patient is currently nothing by mouth NGT to JOSEE Lansoprazole for GI prophylaxis Docusate sodium senna 1 tablet twice a day for bowel regimen AM potassium pending Start TFs jevity 1.5 Heme/ID: Macro Anemia Thrombocytopenia Pneumonia Patiently pancultured including bronchoscopy washings, UA. Blood cultures 2 performed Currently on cefepime, Flagyl and azithromycin renally dosed Endocrine: Sliding-scale insulin to maintain euglycemia/low regimen with novulog every 6 hours Prophylaxis: GI Prophylaxis Lansoprazole DVT Prophylaxis -- SCDs/heparin subcutaneous Lines: Peripheral IVs providing adequate access at this time Overall impression: Critically ill with new onset seizures and hypoxemic respiratory failure. Unable to wean ventilator. Critical care 37 mins Edward Hernandez MD Mar 10, 2017 09:05
[2017-03-10] MEDS: CHLORHEXIDINE 0.12% (ORAL KIT) 15 ML CUP MT SCH ×2 (09:26→20:39)
[2017-03-10] MEDS: CEFEPIME INJ 2,000 MG in SODIUM CHLORIDE 0.9% INJ 100 ML IV SCH (09:26)
--- NOTE | 2017-03-10 09:57 | HHI.NPPN ---
Subjective History of Present Illness 57-year-old male with the alcohol withdrawal, altered mental status, acute renal failure Additional Remarks Intubated yesterday, had bronchoscopy because of mucus plug. On Cefepime, Zithromax and Flagyl. Objective Data Data Vital Signs Date Time Temp Pulse Resp B/P (MAP) Pulse Ox O2 Delivery O2 Flow Rate FiO2 03/10/17 08:28 100 30 03/10/17 08:28 100 Ventilator 30 03/10/17 03:34 99 30 03/10/17 03:00 56 14 107/71 (83) 98 03/10/17 03:00 56 03/10/17 01:11 98 30 03/09/17 23:00 56 14 112/75 (87) 98 03/09/17 23:00 56 03/09/17 20:53 98 30 03/09/17 19:00 98 Mechanical Ventilator 40 03/09/17 19:00 59 03/09/17 19:00 97.7 59 14 102/70 (81) 98 03/09/17 18:00 58 03/09/17 16:00 57 03/09/17 16:00 97.4 57 14 156/95 (115) 100 03/09/17 15:50 98 30 03/09/17 14:00 57 03/09/17 12:44 100 30 03/09/17 12:00 96.8 55 14 136/92 (107) 100 03/09/17 12:00 55 03/09/17 10:00 58 -: 03/10/17 0655 03/10/17 0655 Microbiology 03/09/17 Influenza Types A,B Antigen (LILLY) - Final, Complete NEGATIVE FOR FLU A AND B ANTIGEN.... 03/09/17 Streptococcus pneumoniae Antigen (M - Final, Complete PRESUMPTIVE NEGATIVE FOR STREPTOCOCCU... 03/09/17 Legionella Antigen - Final, Complete PRESUMPTIVE NEGATIVE FOR LEGIONELLA P... Physical Exam General Appearance: Malnourished Eyes Eye Exam: Pupils Equal Neck Neck Exam: Neck Supple Pulmonary Resp Exam: Crackles, Rhonchi, Diminished Breath Sounds Cardiology CV Exam: Regular, Normal Sinus Rhythm Gastrointestinal/Abdomen GI Exam: Soft, Non-Tender, Bowel Sounds Present Musculoskeletal MS Exam: Unable to Ambulate Extremeties Extremities Exam: No Edema Assessment/Plan Problem List: (1) SAQIB (acute kidney injury) ICD Codes: N17.9 - Acute kidney failure, unspecified Status: Acute Plan: Acute renal failure acute tubular necrosis with drug use Non oliguric, creatinine is better. Change IVF to D51/2NS. Patient is now intubated he has a left bronchus mucous plug which was removed as fourth and sixth broken drips on x-ray s/p bronchoscopy with removal of mucous plug intubated Monitor BMP CT scan abdominal reviewed Subtle high density stranding medial/upper right kidney. Abnormal mass arising from/abutting spleen LUQ measuring up to 7.5 cm with small amount of calcification (2) Alcohol withdrawal ICD Codes: F10.239 - Alcohol dependence with withdrawal, unspecified Status: Chronic Plan: Patient remained in altered mental status (3) Hypertension ICD Codes: I10 - Essential (primary) hypertension Status: Chronic Plan: Patient's blood pressure was labile continue to monitor Problem Qualifiers (1) Alcohol withdrawal: Qualified Codes: F10.231 - Alcohol dependence with withdrawal delirium (2) Hypertension: Qualified Codes: I10 - Essential (primary) hypertension Darren Dobson MD Mar 10, 2017 09:56
[2017-03-10] MEDS: chlordiazePOXIDE 25 MG CAP PO SCH ×2 (12:12→22:42)
[2017-03-10] MEDS: HEPARIN SODIUM - SQ 10,000 UNITS/ML VIAL SQ SCH ×2 (12:12→22:43)
[2017-03-10] MEDS: DEXT 5%-NACL 0.45% 1000 ML INJ 1,000 ML IV SCH ×2 (12:27→22:43)
[2017-03-10] MEDS: BENEPROTEIN POWDER 1 PACK G-TUBE SCH ×2 (12:28→18:00)
[2017-03-10] MEDS ORDERED: levETIRAcetam 1000 MG INJ 100 ML IV ONE (12:30)
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
[2017-03-10 15:02] LABS: POTASSIUM 3.7 MEQ/L (3.5-5.1)
--- NOTE | 2017-03-10 16:16 | RADRPT ---
EXAM DATE/TIME: 03/10/2017 15:01 [facility] COMPARISON: MRI BRAIN W/O CONTRAST, February 25, 2017, 12:37. INDICATIONS : Seizures. MEDICAL HISTORY : Hepatitis C. Seizures. SURGICAL HISTORY : Orthopaedic. ENCOUNTER: Initial ACUITY: 1 day PAIN SCORE: 0/10 LOCATION: cranial TECHNIQUE: Multiplanar, multisequence MRI of the brain was performed without contrast. FINDINGS: CEREBRUM: The ventricles are normal for age. No evidence of midline shift, mass lesion, hemorrhage or acute in farction. No extraaxial fluid collections are seen. The pituitary gland and suprasellar cistern are normal in configuration. Atrophy again noted. WHITE MATTER: Moderate to severe, chronic symmetric periventricular white matter flair signal abnormality again not ed. POSTERIOR FOSSA: The cerebellum and brainstem are intact. The 4th ventricle is midline. The cerebellopontine angle is unremarkable. The cerebellar tonsils are normal in position. DIFFUSION IMAGING: No focal areas of restricted diffusion are seen. No evidence of acute infarction. EXTRACRANIAL: The visualized portions of the orbits and paranasal sinuses are unremarkable. Left March oh again n oted. CONCLUSION: No acute infarct or other acute intracranial abnormality. Atrophy and chronic white matter changes ar e again noted. Kilo Rowell MD on March 10, 2017 at 16:12 Board Certified Radiologist. This report was verified electronically.
[2017-03-10] MEDS ORDERED: LORazepam 2 MG/ML VIAL IV PUSH ONE (20:15)
[2017-03-10] MEDS: SODIUM CHLORID 0.9% 500 ML INJ 500 ML IV SCH ×5 (20:15→22:19)
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
--- NOTE | 2017-03-10 21:42 | MG ---
cc: RAUL ROWAN Lab No: [id number] Date: 03/10/17 Age: 57 Sex: M Race: A 57-year-old man, alcohol, depression, shaking. MEDICATIONS 1. Keppra. 2. Diprivan. Bifrontal muscle artifact is seen towards the end of the recording. The beginning of the recording shows diffuse 4-5 Hz symmetric rhythms and looks like primarily medication effect. No epileptiform or seizure activity is noted. No hemisphere asymmetries. Photic stimulation was performed without significant posterior driving. Some left arm jerking and head-shaking was noted without any seizure activity. IMPRESSION Just medication effect. No focal abnormality. No seizure activity was noted. Raul Rowan MD DJM/EO /9:15 PM /9:34 PM
[2017-03-11] VITALS (18 sets, daily range): BP systolic 92–109; BP diastolic 63–75; PULSE 60–98; RESP 12–18; TEMP 98.4–99.2; O2SAT 95–100
[2017-03-11] MEDS: RESP: SODIUM CHLORIDE 3% 4 ML NEB NEB SCH ×6 (00:38→20:03)
[2017-03-11] MEDS: metroNIDAZOLE 500 MG INJ 100 ML IV SCH ×3 (02:45→17:32)
[2017-03-11 05:36] LABS: ALKALINE PHOSPHATASE 83 U/L (45-117); ALT (GPT) 74 U/L (12-78); ANION GAP 8 MEQ/L (5-15); AST (GOT) 101 U/L (15-37); BICARBONATE 29.2 MEQ/L (21.0-32.0); BLOOD UREA NITROGEN 33 MG/DL (7-18); CHLORIDE 101 MEQ/L (98-107); GLOMERULAR FILTRATION RATE 21 ML/MIN (>89); POTASSIUM 4.7 MEQ/L (3.5-5.1); SODIUM (NA) 138 MEQ/L (136-145); TOTAL BILIRUBIN ADULT 0.7 MG/DL (0.2-1.0)
[2017-03-11] MEDS: PROPOFOL 1000 MG/100 ML INJ 100 ML IV PRN ×2 (05:58→16:29)
[2017-03-11] MEDS: ARTIFICIAL TEARS OPTH SOLN 15 ML BTL EACH EYE SCH ×3 (06:00→22:07)
[2017-03-11 06:06] LABS: AUTOMATED NEUTROPHIL # 6.3 TH/MM3 (1.8-7.7); BASOPHIL # 0.1 TH/MM3 (0-0.2); BASOPHIL % 0.6 % (0.0-2.0); EOSINOPHIL # 0.3 TH/MM3 (0-0.4); HEMATOCRIT 36.2 % (39.0-51.0); HEMO FLAGS DIFF FINAL; LYMPH % 19.3 % (9.0-44.0); LYMPHOCYTE # 1.9 TH/MM3 (1.0-4.8); MEAN CELL VOLUME 104.6 FL (80.0-100.0); MEAN CORPUSCULAR HEMOGLOBIN 34.2 PG (27.0-34.0); MEAN CORPUSCULAR HGB CONC 32.7 % (32.0-36.0); MONO % 12.2 % (0.0-8.0); NEUT % 64.9 % (16.0-70.0); PLATELET COUNT 115 TH/MM3 (150-450); RED BLOOD COUNT 3.47 MIL/MM3 (4.50-5.90); RED CELL DISTRIBUTION WIDTH 14.2 % (11.6-17.2); WHITE BLOOD COUNT 9.8 TH/MM3 (4.0-11.0)
[2017-03-11] MEDS: CHLORHEXIDINE 0.12% (ORAL KIT) 15 ML CUP MT SCH ×2 (08:00→20:00)
[2017-03-11] MEDS: RESP: ALBUTEROL 2.5 MG/3 ML NEB (PRN) NEB (08:36)
[2017-03-11] MEDS: METOPROLOL TARTRATE 100 MG TAB PO SCH ×2 (09:00→20:56)
[2017-03-11] MEDS: CEFEPIME INJ 2,000 MG in SODIUM CHLORIDE 0.9% INJ 100 ML IV SCH (09:00)
[2017-03-11] MEDS: SODIUM CHLORIDE 0.9% FLUSH 10 ML FLUSH IV FLUSH SCH ×2 (09:00→20:57)
[2017-03-11] MEDS: BENEPROTEIN POWDER 1 PACK G-TUBE SCH ×3 (09:00→17:29)
[2017-03-11] MEDS: hydrALAZINE HCL 25 MG TAB PO SCH ×2 (09:00→20:57)
[2017-03-11] MEDS: cloNIDine HCL 0.1 MG TAB PO SCH ×3 (09:00→17:28)
--- NOTE | 2017-03-11 09:07 | HHI.PR ---
Objective Vital Signs Date Time Temp Pulse Resp B/P (MAP) Pulse Ox O2 Delivery O2 Flow Rate FiO2 03/11/17 08:36 100 30 03/11/17 08:36 100 Ventilator 30 03/11/17 06:00 76 03/11/17 04:15 95 30 03/11/17 04:00 76 03/11/17 04:00 98.5 76 12 104/64 (77) 96 03/11/17 02:00 70 03/11/17 00:38 100 30 03/11/17 00:00 98.8 98 18 109/73 (85) 100 03/11/17 00:00 60 03/10/17 22:00 60 03/10/17 20:17 99 30 03/10/17 20:00 98.3 90 13 114/77 (89) 100 03/10/17 20:00 100 Mechanical Ventilator 30 03/10/17 20:00 90 03/10/17 17:27 100 30 03/10/17 16:00 98.6 61 12 84/53 (63) 97 03/10/17 16:00 61 03/10/17 14:30 100 100 03/10/17 14:00 63 03/10/17 12:24 100 30 03/10/17 12:00 60 03/10/17 12:00 99.1 60 12 100/66 (77) 97 03/10/17 10:00 62 I/O 03/10/17 03/10/17 03/10/17 03/11/17 03/11/17 03/11/17 07:00 15:00 23:00 07:00 15:00 23:00 Intake Total 890 ml 1650 ml 729 ml 1637 ml Output Total 550 ml 0 ml 500.0 ml 400 ml Balance 340 ml 1650 ml 229.0 ml 1237 ml IV Total 890 ml 1650 ml 598 ml 961 ml Tube Feeding 131 ml 436 ml Other 240 ml Output Urine Total 550 ml 500 ml 400 ml Gastric Drainage Total 0 ml Tube Feeding Residual Discard 0 ml 0 ml 0 ml # Bowel Movements 0 0 1 Result Diagram: 03/11/1744403/11/17444 Objective Remarks sedated when nurse stimulates with sx he begins to have rhythmic jerks of head arms and eyelids and slowly fatigues Assessment and Plan Assessment and Plan imp eeg yest neg will recheck today with stimulation and if eeg neg may be med rxt and dc sedatives and see how does check cpk and abg b12 esr etc rpr on [facility] Raul Giles am, MD Mar 11, 2017 09:07
[2017-03-11] MEDS: AZITHROMYCIN INJ 500 MG in SODIUM CHLOR 0.9% 250 ML INJ 250 ML IV SCH (09:53)
[2017-03-11] MEDS: THIAMINE HCL 100 MG TAB PO SCH (09:53)
[2017-03-11] MEDS: MULTIVITAMIN TAB PO SCH (09:53)
[2017-03-11] MEDS: LANSOPRAZOLE SOLUTAB 30 MG TAB NG SCH (09:53)
[2017-03-11] MEDS: chlordiazePOXIDE 25 MG CAP PO SCH ×2 (09:53→22:06)
[2017-03-11] MEDS: NYSTAT/DIPHENHY/LIDO MOUTHWASH (Adult) 120ML SWISH-SWAL SCH ×4 (09:53→20:59)
--- NOTE | 2017-03-11 09:56 | HHI.FPPN ---
Subjective Remarks Per nurse report, yesterday, patient was noted to have what looked like seizure activity. EEG was performed, but no seizure activity was noted. Neurologist Dr. Kingston ordered another EEG for today. Tube feeds were advanced until patient had an episode of emesis. Patient did have a BM yesterday. Urine output is between 400-500 mL q12h. Patient slightly opens his eyes with sternal rub, but is otherwise unresponsive on vent with sedation with Propofol and Fentanyl. (Anedrson Matt MD R2) Objective Vitals Vital Signs Date Time Temp Pulse Resp B/P (MAP) Pulse Ox O2 Delivery O2 Flow Rate FiO2 03/11/17 08:36 100 30 03/11/17 08:36 100 Ventilator 30 03/11/17 06:00 76 03/11/17 04:15 95 30 03/11/17 04:00 76 03/11/17 04:00 98.5 76 12 104/64 (77) 96 03/11/17 02:00 70 03/11/17 00:38 100 30 03/11/17 00:00 98.8 98 18 109/73 (85) 100 03/11/17 00:00 60 03/10/17 22:00 60 03/10/17 20:17 99 30 03/10/17 20:00 98.3 90 13 114/77 (89) 100 03/10/17 20:00 100 Mechanical Ventilator 30 03/10/17 20:00 90 03/10/17 17:27 100 30 03/10/17 16:00 98.6 61 12 84/53 (63) 97 03/10/17 16:00 61 03/10/17 14:30 100 100 03/10/17 14:00 63 03/10/17 12:24 100 30 03/10/17 12:00 60 03/10/17 12:00 99.1 60 12 100/66 (77) 97 03/10/17 10:00 62 I/O 03/10/17 03/10/17 03/10/17 03/11/17 03/11/17 03/11/17 07:00 15:00 23:00 07:00 15:00 23:00 Intake Total 890 ml 1650 ml 729 ml 1637 ml Output Total 550 ml 0 ml 500.0 ml 400 ml Balance 340 ml 1650 ml 229.0 ml 1237 ml IV Total 890 ml 1650 ml 598 ml 961 ml Tube Feeding 131 ml 436 ml Other 240 ml Output Urine Total 550 ml 500 ml 400 ml Gastric Drainage Total 0 ml Tube Feeding Residual Discard 0 ml 0 ml 0 ml # Bowel Movements 0 0 1 (Anderson Matt MD R2) Result Diagram: 03/11/17 0445 03/11/17 0445 Imaging Last Impressions Chest X-Ray 03/10/17 0600 Signed Impressions: Service Date/Time: Friday, March 10, 2017 04:07 - CONCLUSION: 1. Persistent left basilar consolidation/effusion. 2. Improving aeration in the right base. 3. Stable position of life support tubes. Tone Henry MD Brain MRI 03/10/17 0000 Signed Impressions: Service Date/Time: Friday, March 10, 2017 15:01 - CONCLUSION: No acute infarct or other acute intracranial abnormality. Atrophy and chronic white matter changes are again noted. Kilo Rowell MD Chest CT 03/09/17 0000 Signed Impressions: Service Date/Time: Thursday, March 09, 2017 04:59 - CONCLUSION: 1. Marked volume loss in the left hemithorax with near-complete collapse of the left lower lobe/lingula. There is still some aeration in the left upper lung. Some of this is due to the moderate sized left-sided effusion although there may be element of airway obstruction/mucus plugging as well. 2. Small right-sided effusion with become atelectatic changes in the right base. 3. Patchy biapical airspace disease.. Tone Henry MD Abdomen X-Ray 03/09/17 0000 Signed Impressions: Service Date/Time: Thursday, March 09, 2017 06:31 - CONCLUSION: Enteric tube as above. Maximus Pavon MD Shoulder X-Ray 03/05/17 0000 Signed Impressions: Service Date/Time: Sunday, March 05, 2017 20:57 - CONCLUSION: No acute disease. Rick Sanford MD Abdomen/Pelvis CT 03/04/17 0000 Signed Impressions: Service Date/Time: Saturday, March 04, 2017 10:31 - CONCLUSION: 1. There is no hydronephrosis or renal abnormality to explain the renal failure. However, there is subtle high density stranding along the medial and upper pole of the right kidney. Suggest followup CT to assess for change. 2. Abnormal mass arising from or abutting the spleen in the left upper quadrant measuring up to 7.5 cm. It contains a small amount of calcification. Suggest correlating with any prior imaging study that could offer additional characterization. If none are available suggest followup imaging to confirm stability and consider contrast enhanced CT or MRI for further characterization when patient condition permits. 3. Small bilateral pleural effusions, left larger than right, with associated compressive atelectasis. 4. Severe coronary artery calcification. Kilo Coulter MD Renal Ultrasound 02/27/17 0000 Signed Impressions: Service Date/Time: Monday, February 27, 2017 20:36 - CONCLUSION: 1. Mildly dilated left renal collecting system. Kidneys normal in size. Trace free fluid. Ruy Hussein MD Head CT 02/23/17 0000 Signed Impressions: Service Date/Time: Thursday, February 23, 2017 07:38 - CONCLUSION: No significant change has occurred. Maximus Pavon MD Objective Remarks GENERAL: male, lying in bed, Patient slightly opens his eyes with sternal rub, but is otherwise unresponsive on vent with sedation with Propofol and Fentanyl. SKIN: Bilateral upper extremities with multiple well-healing scabs; no erythema or warmth HEENT: ETT in place. Pupils pinpoint and grossly symmetrical CARDIOVASCULAR: RRR without appreciable murmurs. grossly normal perfusion. No edema RESPIRATORY: normal rate; more clear breath sounds bilaterally, without wheezing GASTROINTESTINAL: Abdomen soft, non-tender, nondistended; + bowel sounds MUSCULOSKELETAL: No cyanosis or edema. NEURO: Patient slightly opens his eyes with sternal rub, but is otherwise unresponsive on vent with sedation with Propofol and Fentanyl. (Anderson Matt MD R2) Date of Insertion: Feb 23, 2017 (Anderson Matt MD R2) A/P Assessment and Plan 57-year-old white male with past medical history of alcohol withdrawal presented to the ED with hypoglycemia and altered mental status; patient has had progressively worsening renal function and is currently being worked up for renal failure and continued altered mental status. Pt recently required intubation and sedation for respiratory distress and CT with opacification of the left lung concerning for left lung collapse vs mucus plugging. -Pt intubated and sedated on propofol/fentanyl as managed by humanities division chair 03/10-03/11 - Pt having seizure-like activity - neuro consulted (Dr Kingston), stat Brain MRI w/o contrast, stat EEG, and Keppra 1g IV bolus, Lactate 1.9 today vs 1.5 yesterday. Repeat EEG today. Discharge Planning Pending workup for declining renal function, AMS Discussing with case management regarding placement and establish guardianship. Possibly SNF (Anderson Matt MD R2) Attending Attestation Patient seen and examined. Case reviewed and discussed with the resident team. Agree with plan of care as discussed with me and documented in the resident note. unclear exactly what caused Mr Cuevas to get worse Neurologically. Thankfully he is not having seizures and he is off sedation today. He just stares absently with no purposeful movement but is breathing (Betzaida Connolly MD) Problem List: (1) Observed seizure-like activity ICD Codes: R56.9 - Unspecified convulsions Status: Acute Plan: Seizure-like activity observed this morning in setting of no known prior seizures and s/p CIWA protocol -Neuro consult appreciated: eeg yesterday negative. will recheck today with stimulation. if eeg negative, may be medically treated. dc sedatives and see how he does. check cpk and abg, b12, esr, etc, rpr -MRI brain w/o contrast -EEG -Keppra 1g IV bolus (2) Mucus plugging of bronchi ICD Codes: J98.09 - Other diseases of bronchus, not elsewhere classified Status: Acute Plan: Progressive worsening of respiratory status 03/09 requiring move to ICU and intubation/sedation and bronchial lavage to remove mucous plugs from both left and right mainstem bronchi. Much improved physical exam since then. -Cx of bronchial washings for GS, AFB, Fungal -AFB negative -GS and Fungal pending (3) Altered mental status ICD Codes: R41.82 - Altered mental status, unspecified Status: Acute Plan: Patient currently intubated and sedated. However, patient seemed to have improved in response to decreasing sedation. Patient continued to be difficult to understand. Will need guardianship or competence. -Treat agitation taper CIWA -Stopped Librium -Stopped Ativan 1mg IV for agitation (patient given 1mg today prior to CT for sedation) -Haldol 1mg PRN q8hrs for agitation/psychosis -Holding Seroquel 25 mg PO qhs due to being intubated/sedated. -Continue treatment of chronic alcoholism -Continue PO multivitamin -Thiamine discontinued since Thiamine level high -Neuro consulted- supportive care and parenteral thiamine -EEG 03/06 normal -Neuro re-consulted 03/10 for seizure-like activity--new EEG ordered -Psychiatry consulted- delirium suspected to be superimposed on mild dementing process secondary to severe alcoholism. -Continue supportive treatment -Recommend judicious benzodiazepine usage--benzos stopped -May benefit from some type of extended care facility -Occupational therapy recommended OT at rehabilitation (PT recommended OT) -ST consulted -regular and thin liquids per ST. patient is dependent with total help required. -Continue IVF while not having adequate intake -Seizure precautions Impression: AMS initially suspected secondary to alcoholism; persistent UDS positive for Benzos and Cocaine Brain MRI on 02/25- atrophy, periventricular changes without evidence for acute infarction Head CT on admission- no significant change EEG- Mild background slowing without epileptiform features, may be mild encephalopathic process Ammonia 20, RPR nonreactive CMP on admission with mild hyponatremia (134), transaminase elevations, calcium of 8.1 Hep panel pending Thiamine level high at 325 (4) SAQIB (acute kidney injury) ICD Codes: N17.9 - Acute kidney failure, unspecified Status: Acute Plan: Creatinine stuck around 3. -Nephrology consulted: Diagnosed with Acute renal failure acute tubular necrosis with drug use, Non oliguric, creatinine is slightly worse. Changed IVF to D51/2NS, reduced the rate to 40 ml/hour. Monitor BMP -CT abdomen/pelvis ordered to further evaluate etiology of renal dysfunction -No hydronephrosis. Subtle high density stranding medial/upper right kidney. Abnormal mass arising from/abutting spleen LUQ measuring up to 7.5 cm with small amount of calcification. Discussed with radiologist. Likely from previous trauma. No further workup indicated. Impression: Patient with SAQIB. Creatinine trended: 0.86 on admission -> 3.21 on 03/09 (has been >3 since 02/27) Suspect intrinsic cause as Cr elevation refractory to fluid supplementation, BUN /Cr ratio <20/1, and catheterized Previously on Vancomycin-> discontinued Renal US 02/27 with mild L hydronephrosis; normal kidneys No urine eosinophils Urine random Cr 41.6 Urine random sodium 97 (5) PNA (pneumonia) ICD Codes: J18.9 - Pneumonia, unspecified organism Status: Acute Plan: -Was treated with antibiotic therapy from 03/02 - 03/07 for 5-6 days to treat pneumonia; repeat broader spectrum abx since 03/09 to present: -Azithromycin 500mg IV daily -Cefepime 2g IV daily renally dosed -Flagyl 500 mg IV daily renally dosed -Discontinue Solumedrol 40mg IV BID -Continue Duonebs q4h -Continue O2 as needed Impression: 03/02 chest x-ray with increasing consolidative changes in the left base: Patient with symptoms of cough and intermittent low O2 sats requiring NC O2 supplementation Initial blood cultures + for staph hominis; subsequently negative 02/26, 03/02 Sputum cultures not obtained Urine Legionella, strep pneumo negative (6) Atelectasis ICD Codes: J98.11 - Atelectasis Status: Acute Plan: When more awake: -Chest physiotherapy -Acapella, incentive spirometer -Duonebs q4h Impression: Patient with decreased breath sounds on exam had repeat Chest x-ray that showed left lung atelectasis. Patient not using incentive spirometer. CXR 02/26 with mild LLL airspace disease and atelectasis Mucus plugs removed 03/09. (7) Hypertension ICD Codes: I10 - Essential (primary) hypertension Status: Chronic Plan: Patient BPs normalized over last 24 hours on current regimen. -Amlodipine 10mg PO daily -Metoprolol 100 mg q12h -Clonidine 0.1mg TID -Clonidine 0.1 mg q6h PRN For SBP >/= 180, DBP >/= 100 -Hydralazine 25 mg q12h -Hydralazine 10 mg IV q1h PRN Impression: Patient with high pressures not being resolved with Ativan. Likely has underlying hypertension. (8) Agitation ICD Codes: R45.1 - Restlessness and agitation Status: Chronic Plan: Pt on CIWA for EtOH withdrawal on admission, now weaned from benzodiazepine therapy and increased agitation -Haldol 1 mg q8h IM -Haldol 2mg q15m PRN (9) FEN Status: Acute Plan: Fluids: gentle IVF with D5W @ 75 ml/hr until tolerating enough PO Electrolytes: Monitor and replace as needed Nutrition: Regular basic diet mechanical soft and boost shakes as supplement GI PPx: Lansoprazole 30 mg NG/day VTE prophylaxis: Heparin 5000 units every 12 hours (Anderson Matt MD R2) Problem Qualifiers (1) Altered mental status: Qualified Codes: R41.0 - Disorientation, unspecified (2) Hypertension: Qualified Codes: I10 - Essential (primary) hypertension Anderson Matt MD R2 Mar 11, 2017 09:56 Betzaida Connolly MD Mar 12, 2017 14:00
[2017-03-11 10:06] LABS: BLOOD GAS BASE EXCESS 5.7 mmol/L (-2-2); BLOOD GAS CARBOXYHEMOGLOBIN 1.7 % (0-4); BLOOD GAS HCO3 31 mmol/L (22-26); BLOOD GAS METHEMOGLOBIN 0.7 % (0-2); BLOOD GAS O2 HGB SATURATION 91 % (90-100); BLOOD GAS OXYGEN CONTENT 13.2 Vol % (12.0-20.0); BLOOD GAS PCO2 54 mmHg (38-42); BLOOD GAS PO2 69 mmHg (61-120); BLOOD GAS TOTAL HGB 10.2 G/DL (12.0-16.0); TEMP CORR TO 98.6
[2017-03-11 10:07] LABS: CRITICAL VALUE YES; OXYGEN DEVICE VENTILATOR
[2017-03-11 10:08] LABS: DRAW SITE RT RADIAL; FIO2 30 %; NUMBER OF ARTERIAL PUNCTURES 1; STAT YES; ULNAR PULSE PRESENT
--- NOTE | 2017-03-11 10:45 | HHI.CCPN ---
Subjective Remarks/Hospital Course This is a 57-year-old male that was found down and admitted to this hospital 02/23/2017. Urine tox screen revealed patient was positive for benzodiazepines and cocaine at that time. Since admission the patient has been on a [facility] protocol, neurology has been consulted Dr. Wayne, with continued supportive care. Over the last 48 hours the patient was noted to have elevation in his creatinine with a significant decrease in urine output acute renal failure nephrology was consulted the patient continues on gentle diuresis and received 80 mg of Lasix IV this afternoon and is currently on sodium bicarbonate infusion at 110 cc/an hour. Due to the patient's respiratory insufficiency, and altered mental status concern for possible continued respiratory decompensation the patient was transferred to the ICU, and critical care was consulted for management. Upon entering the patient's room the patient was noted to be lethargic having received 4 mg of Ativan in the last 4 hours, but opens eyes to sternal rub. The patient was noted to have O2 saturation of 95% on O2 via nasal cannula at 5 L with no accessory respiratory efforts. Stat ABG was ordered pending, to rule out CO2 narcosis. Since admission to ICU the patient was noted to diuresis of 700 cc. 03/03: Afebrile. The patient did not receive any Ativan since 3 PM on 03/02/17. The patient rested well overnight, eventually waking and responding. This a.m. the patient's noted to be sitting up in bed, alert and responsive. Librium has been added to medication regimen for alcohol withdrawal. Noted to be oriented to date of unable to provide name or place at this time. Essential tremors, fine tremors noted. The patient severely weak and unable to feed self without assistance. The patient's diet was advanced to regular diet, tolerating well, 100% consumption. PO meds were held since admission to ICU secondary to lethargy, all by mouth meds resumed this a.m.. The patient currently is compliant following commands, inappropriate responses, with noted incomprehensible words, language at times. Patient is noted to be very weak. Nasal cannula O2 has been weaned down to approximately 3 L, the patient appears in no respiratory distress. Subjective: 03/09: Reconsulted secondary acute respiratory failure. Chest x-ray earlier in the morning revealed collapse versus large pleural effusion left side. Patient oxygen requirements had increased from 4 L to a nonrebreather mask. CT thorax revealed likely mucous plugging/collapsed lung left side. Small to moderate left pleural effusion. Patient was combative upon arrival ICU in place in soft restraints. Due to mental status/mucous plugging patient was electively intubated using 20 mg etomidate and 50 mg, rocuronium. Patient was prompt aureus which revealed thick white mucous plugging in the left and right mainstem. These were lavaged to left upper lobe/lingula and left lower lobe, right upper middle and lower lobes. Samples were sent see orders. Currently sedated with propofol and fentanyl drips. 03/10: Tonic seizures today when propofol stopped. Seizures ceased with propofol bolus. Left pneumonia persists but improved aeration after bronch . 03/11: Gas exchange acceptable. Continues to have tonic "seizures" when propofol is lightened. EEG 03/10 states no seizures but we will repeat EEG again today with stimulation and off propofol. Can't extubate until this "seizure" activity is resolved. Vomited tube feeds, will reduce and add reglan. Objective Vital Signs Date Time Temp Pulse Resp B/P (MAP) Pulse Ox O2 Delivery O2 Flow Rate FiO2 03/11/17 08:36 100 30 03/11/17 08:36 Ventilator 03/11/17 06:00 76 03/11/17 04:00 98.5 12 104/64 (77) 03/09/17 04:30 6.00 Intake and Output 03/11/17 03/11/17 03/12/17 08:00 16:00 00:00 Intake Total 1637 ml Output Total 400 ml Balance 1237 ml Result Diagram: 03/11/17 0445 03/11/17 0445 Other Results Microbiology Date/Time Source Procedure Growth Status 03/09/17 18:50 Nasal Aspirate Influenza Types A,B Antigen (LILLY) - Final NEGATIVE FOR FLU A AND B ANTIGEN.... Complete 03/09/17 18:50 Urine Catheterized Urine Streptococcus pneumoniae Antigen (M - Final PRESUMPTIVE NEGATIVE FOR STREPTOCOCCU... Complete 03/09/17 18:50 Urine Clean Catch Legionella Antigen - Final PRESUMPTIVE NEGATIVE FOR LEGIONELLA P... Complete Laboratory Tests Test 03/11/17 09:49 Blood Gas Puncture Site RT RADIAL Blood Gas Patient Temperature 98.6 Blood Gas HCO3 31 mmol/L (22-26) Blood Gas Base Excess 5.7 mmol/L (-2-2) Blood Gas Oxygen Saturation 91 % (90-100) Arterial Blood pH 7.38 (7.380-7.420) Arterial Blood Partial Pressure CO2 54 mmHg (38-42) Arterial Blood Partial Pressure O2 69 mmHg (61-120) Arterial Blood Oxygen Content 13.2 Vol % (12.0-20.0) Arterial Blood Carboxyhemoglobin 1.7 % (0-4) Arterial Blood Methemoglobin 0.7 % (0-2) Blood Gas Hemoglobin 10.2 G/DL (12.0-16.0) Oxygen Delivery Device VENTILATOR Blood Gas Ventilator Setting 500/12/+5/1.0 Blood Gas Inspired Oxygen 30 % Imaging Last Impressions Shoulder X-Ray 03/05/17 0000 Signed Impressions: Service Date/Time: Sunday, March 05, 2017 20:57 - CONCLUSION: No acute disease. Rick Sanford MD Abdomen/Pelvis CT 03/04/17 0000 Signed Impressions: Service Date/Time: Saturday, March 04, 2017 10:31 - CONCLUSION: 1. There is no hydronephrosis or renal abnormality to explain the renal failure. However, there is subtle high density stranding along the medial and upper pole of the right kidney. Suggest followup CT to assess for change. 2. Abnormal mass arising from or abutting the spleen in the left upper quadrant measuring up to 7.5 cm. It contains a small amount of calcification. Suggest correlating with any prior imaging study that could offer additional characterization. If none are available suggest followup imaging to confirm stability and consider contrast enhanced CT or MRI for further characterization when patient condition permits. 3. Small bilateral pleural effusions, left larger than right, with associated compressive atelectasis. 4. Severe coronary artery calcification. Kilo Coulter MD Chest X-Ray 03/02/17 0000 Signed Impressions: Service Date/Time: Thursday, March 02, 2017 08:18 - CONCLUSION: Increasing consolidative changes left base. Nasir Mack MD FACR Renal Ultrasound 02/27/17 0000 Signed Impressions: Service Date/Time: Monday, February 27, 2017 20:36 - CONCLUSION: 1. Mildly dilated left renal collecting system. Kidneys normal in size. Trace free fluid. Ruy Hussein MD Brain MRI 9/3/17 0000 Signed Impressions: Service Date/Time: Saturday, February 25, 2017 12:37 - CONCLUSION: Atrophy, periventricular changes without evidence for acute infarction. Nasir Mack MD FACR Head CT 02/23/17 0000 Signed Impressions: Service Date/Time: Thursday, February 23, 2017 07:38 - CONCLUSION: No significant change has occurred. Maximus Pavon MD Objective Remarks GENERAL: 57-year-old male, combative on nonrebreather mask SKIN: Warm and dry. Clean gauze dressing right forearm HEAD: Atraumatic. Normocephalic. EYES: Pupils equal and round around 2 mm bilaterally and reactive. No scleral icterus. No injection or drainage. ENT: No nasal bleeding or discharge. Mucous membranes pink and moist. NECK: Trachea midline. Orally intubated. CARDIOVASCULAR: RRR. S1, S2 no S4. Without murmur. No JVD. RESPIRATORY: Diminished breath sounds left lung thomas. No wheezing GASTROINTESTINAL: Abdomen soft, non-tender, nondistended. Active bowel sounds appreciated MUSCULOSKELETAL: Extremities without without significant peripheral edema. No obvious deformities. Right forearm dressing, noted cellulitis NEUROLOGICAL: Tonic seizures involving head, neck, left side. Stop with propofol bolus. Date of Insertion: Feb 23, 2017 A/P Assessment and Plan Neuro/Psych: Admission with EtOH withdrawal - likely completed Polysubstance abuse including cocaine and benzodiazepines Acute delirium/multifactorial likely toxic metabolic secondary to hypoxia Polyneuropathy of critical illness Patient is currently on propofol/fentanyl drips for sedation/analgesia while intubated Goal of RASS -2 Daily sedation vacation Patient is followed by Dr. Wayne/urology. EEG's reveal moderate encephalopathy no epileptiform activity Previous on Seroquel 25 mg at night and Haldol when necessary Seizure precautions Continue thiamine 100 mg daily Psychiatry consulted-complete evaluation to determine adequacy for self-care Seizures 03/10, recur when propofol off. Respiratory: Acute hypoxemic respiratory failure secondary to aspiration PRVC 16/500/1/5/100 Ventilator bundle Albuterol/ipratropium aerosols every 4 hours with albuterol aerosols every 2 hours. Dyspnea At hypertonic saline aerosols every 4 hours 5 days to thin secretions Follow-up chest x-ray CT thorax from 03/09 revealed collapse left upper/lingula lobes with significant secretions left main bronchus. Improved aeration 09/16 Cardiovascular: Hypertension Currently on amlodipine 10 mg daily, clonidine 0.1 mg 3 times a day and metoprolol 5 mg by mouth twice a day for hypertension Maintain MAP > 65 mmHG D/C D5 water at 70 cc an hour. Renal: Acute kidney injury secondary to ATN Nephrology following Dr. Martinez Accurate I's and O's Monitor urine output No signs of hydronephrosis on renal imaging Urine eosinophils negative FEN/GI: Mild protein calorie malnutrition HYPERKALEMIA Hep C AB + Patient is currently nothing by mouth NGT to LIWS Lansoprazole for GI prophylaxis Docusate sodium senna 1 tablet twice a day for bowel regimen AM potassium pending Start TFs jevity 1.5 Heme/ID: Macro Anemia Thrombocytopenia Pneumonia Patiently pancultured including bronchoscopy washings, UA. Blood cultures 2 performed Currently on cefepime, Flagyl and azithromycin renally dosed Endocrine: Sliding-scale insulin to maintain euglycemia/low regimen with novulog every 6 hours Prophylaxis: GI Prophylaxis Lansoprazole DVT Prophylaxis -- SCDs/heparin subcutaneous Lines: Peripheral IVs providing adequate access at this time Overall impression: Critically ill with new onset recurrent seizures and hypoxemic respiratory failure. Left lung more well aerated after bronchoscopy. Unable to wean ventilator. Chronic alcoholic. Critical care 35 mins Edward Hernandez MD Mar 11, 2017 10:45
[2017-03-11] MEDS: HEPARIN SODIUM - SQ 10,000 UNITS/ML VIAL SQ SCH ×2 (11:16→22:08)
--- NOTE | 2017-03-11 11:51 | HHI.NPPN ---
Subjective History of Present Illness 57-year-old male with the alcohol withdrawal, altered mental status, acute renal failure Additional Remarks Intubated on the , had bronchoscopy because of mucus plug. On Cefepime, Zithromax and Flagyl. Underwent EEG today, he is having involuntary jerky movements of the arms. Objective Data Data Vital Signs Date Time Temp Pulse Resp B/P (MAP) Pulse Ox O2 Delivery O2 Flow Rate FiO2 03/11/17 08:36 100 30 03/11/17 08:36 100 Ventilator 30 03/11/17 06:00 76 03/11/17 04:15 95 30 03/11/17 04:00 76 03/11/17 04:00 98.5 76 12 104/64 (77) 96 03/11/17 02:00 70 03/11/17 00:38 100 30 03/11/17 00:00 98.8 98 18 109/73 (85) 100 03/11/17 00:00 60 03/10/17 22:00 60 03/10/17 20:17 99 30 03/10/17 20:00 98.3 90 13 114/77 (89) 100 03/10/17 20:00 100 Mechanical Ventilator 30 03/10/17 20:00 90 03/10/17 17:27 100 30 03/10/17 16:00 98.6 61 12 84/53 (63) 97 03/10/17 16:00 61 03/10/17 14:30 100 100 03/10/17 14:00 63 03/10/17 12:24 100 30 03/10/17 12:00 60 03/10/17 12:00 99.1 60 12 100/66 (77) 97 -: 03/11/17 0445 03/11/17 0445 Physical Exam General Appearance: Malnourished Eyes Eye Exam: Pupils Equal Neck Neck Exam: Neck Supple Pulmonary Resp Exam: Crackles, Rhonchi, Diminished Breath Sounds Cardiology CV Exam: Regular, Normal Sinus Rhythm Gastrointestinal/Abdomen GI Exam: Soft, Non-Tender, Bowel Sounds Present Musculoskeletal MS Exam: Unable to Ambulate Extremeties Extremities Exam: No Edema Assessment/Plan Problem List: (1) SAQIB (acute kidney injury) ICD Codes: N17.9 - Acute kidney failure, unspecified Status: Acute Plan: Acute renal failure acute tubular necrosis with drug use Non oliguric, creatinine is slightly worse. Changed IVF to D51/2NS, reduce the rate to 40 ml/hour. s/p bronchoscopy with removal of mucous plug intubated Monitor BMP CT scan abdominal reviewed Subtle high density stranding medial/upper right kidney. Abnormal mass arising from/abutting spleen LUQ measuring up to 7.5 cm with small amount of calcification (2) Alcohol withdrawal ICD Codes: F10.239 - Alcohol dependence with withdrawal, unspecified Status: Chronic Plan: Patient remained in altered mental status (3) Hypertension ICD Codes: I10 - Essential (primary) hypertension Status: Chronic Plan: Patient's blood pressure was labile continue to monitor Problem Qualifiers (1) Alcohol withdrawal: Qualified Codes: F10.231 - Alcohol dependence with withdrawal delirium (2) Hypertension: Qualified Codes: I10 - Essential (primary) hypertension Darren Dobson MD Mar 11, 2017 11:51
[2017-03-11] MEDS: DEXT 5%-NACL 0.45% 1000 ML INJ 1,000 ML IV SCH (13:16)
[2017-03-11] MEDS: METOCLOPRAMIDE HCL 10 MG/2 ML VIAL IV PUSH SCH ×2 (13:17→22:06)
[2017-03-11] MEDS: fentaNYL DRIP 250 ML IV PRN (16:30)
[2017-03-12] VITALS (18 sets, daily range): BP systolic 82–165; BP diastolic 59–107; PULSE 64–134; RESP 12–24; TEMP 98–98.6; O2SAT 86–100
[2017-03-12] MEDS: RESP: SODIUM CHLORIDE 3% 4 ML NEB NEB SCH ×7 (00:21→23:59)
[2017-03-12] MEDS: metroNIDAZOLE 500 MG INJ 100 ML IV SCH ×3 (01:13→18:06)
[2017-03-12] MEDS: PROPOFOL 1000 MG/100 ML INJ 100 ML IV PRN ×3 (01:14→22:00)
[2017-03-12] MEDS: RESP: ALBUTEROL 2.5 MG/3 ML NEB (PRN) NEB ×3 (03:25→23:59)
[2017-03-12] MEDS: METOCLOPRAMIDE HCL 10 MG/2 ML VIAL IV PUSH SCH ×3 (05:41→22:12)
[2017-03-12] MEDS: ARTIFICIAL TEARS OPTH SOLN 15 ML BTL EACH EYE SCH ×3 (05:43→21:58)
[2017-03-12 05:53] LABS: HEMATOCRIT 34.1 % (39.0-51.0); MEAN CELL VOLUME 103.4 FL (80.0-100.0); MEAN CORPUSCULAR HEMOGLOBIN 34.3 PG (27.0-34.0); MEAN CORPUSCULAR HGB CONC 33.2 % (32.0-36.0); PLATELET COUNT 100 TH/MM3 (150-450); RED CELL DISTRIBUTION WIDTH 14.1 % (11.6-17.2); WHITE BLOOD COUNT 10.2 TH/MM3 (4.0-11.0)
[2017-03-12 05:54] LABS: HEMO FLAGS AUTO DIFF
--- NOTE | 2017-03-12 05:54 | MG ---
cc: SAJAN ROWAN M.D. Lab No: [id number] Date: 03/11/2017 Age: Sex: M Race: NOTE Alcohol, seizure-like activity. FINDINGS The recording begins with a diffuse 4 Hz slowing. The recording overall is synchronous and symmetric. No epileptiform or seizure activity is noted. Photic stimulation was performed without significant posterior driving. The patient is then stimulated by the nurse and muscle artifact is seen, but no epileptiform or seizure activity is associated with that. No seizure activity is noted. No hemisphere asymmetries are noted. Has head shaking, biting tube, left arm shaking. None of that correlates with any epileptiform activity on EEG. IMPRESSION Diffuse slowing with medication effect and diffuse encephalopathy but no focal abnormalities noted. No seizure activity was seen, specifically with his jerking episodes no seizure activity was noted. MD CHRISS Hansen/PERRY /11:44 PM /5:47 AM
[2017-03-12 06:24] LABS: BICARBONATE 28.6 MEQ/L (21.0-32.0); MAGNESIUM 1.9 MG/DL (1.5-2.5); POTASSIUM 4.1 MEQ/L (3.5-5.1)
[2017-03-12 07:20] LABS: BANDS 1 % (0-6); BASOPHILS 2 % (0-2); EOSINOPHILS 2 % (0-4); NEUTROPHIL # MANUAL DIFF 5.4 TH/MM3 (1.8-7.7); POLYS (SEG NEUTROPHILS) 52 % (16-70); WBC DIFF SAMPLE 100
[2017-03-12 07:21] LABS: PLATELET ESTIMATE SMEAR LOW (NORMAL); PLATELET MORPHOLOGY NORMAL (NORMAL); TARGET CELLS 1+ (NORMAL)
[2017-03-12 07:22] LABS: SCAN/DIFF FINAL DIFF MANUAL
--- NOTE | 2017-03-12 07:59 | HHI.PR ---
Objective Vital Signs Date Time Temp Pulse Resp B/P (MAP) Pulse Ox O2 Delivery O2 Flow Rate FiO2 03/12/17 07:42 100 30 03/12/17 06:00 64 03/12/17 04:00 98.0 64 24 82/60 (67) 100 03/12/17 04:00 64 03/12/17 02:00 64 03/12/17 00:22 97 30 03/12/17 00:00 98.3 67 15 93/59 (70) 99 03/12/17 00:00 67 03/11/17 22:00 68 03/11/17 22:00 70 03/11/17 20:03 98 30 03/11/17 20:00 70 03/11/17 20:00 98.8 70 12 92/64 (73) 97 03/11/17 20:00 100 Mechanical Ventilator 30 03/11/17 18:00 77 03/11/17 16:48 100 30 03/11/17 16:00 98.4 70 13 107/75 (86) 98 03/11/17 16:00 70 03/11/17 14:00 76 03/11/17 12:19 100 30 03/11/17 12:00 98.8 72 12 92/63 (73) 98 03/11/17 12:00 72 03/11/17 10:00 69 03/11/17 08:36 100 30 03/11/17 08:36 100 Ventilator 30 03/11/17 08:00 99.2 74 12 94/67 (76) 98 03/11/17 08:00 74 I/O 03/11/17 03/11/17 03/11/17 03/12/17 03/12/17 03/12/17 07:00 15:00 23:00 07:00 15:00 23:00 Intake Total 1637 ml 1015 ml 444 ml 1328 ml Output Total 400 ml 0 ml 400.0 ml 425 ml Balance 1237 ml 1015 ml 44.0 ml 903 ml IV Total 961 ml 1015 ml 263 ml 864 ml Tube Feeding 436 ml 181 ml 224 ml Other 240 ml 240 ml Output Urine Total 400 ml 400 ml 425 ml Tube Feeding Residual Discard 0 ml 0 ml 0 ml 0 ml # Bowel Movements 1 1 0 Result Diagram: 03/12/1752203/12/17522 Objective Remarks arouses slightly w/o jerk this am Assessment and Plan Assessment and Plan imp 2 eeg neg during jerks ok to get off sedatives on keppra Raul Giles am, MD Mar 12, 2017 07:59
[2017-03-12] MEDS: cloNIDine HCL 0.1 MG TAB PO SCH ×3 (09:00→18:00)
[2017-03-12] MEDS: hydrALAZINE HCL 25 MG TAB PO SCH (09:00)
[2017-03-12] MEDS: CHLORHEXIDINE 0.12% (ORAL KIT) 15 ML CUP MT SCH ×2 (09:57→21:57)
[2017-03-12] MEDS: MULTIVITAMIN TAB PO SCH (09:58)
[2017-03-12] MEDS: SODIUM CHLORIDE 0.9% FLUSH 10 ML FLUSH IV FLUSH SCH ×2 (09:58→21:00)
[2017-03-12] MEDS: THIAMINE HCL 100 MG TAB PO SCH (09:58)
[2017-03-12] MEDS: chlordiazePOXIDE 25 MG CAP PO SCH ×2 (09:58→22:13)
[2017-03-12] MEDS: LANSOPRAZOLE SOLUTAB 30 MG TAB NG SCH (09:58)
[2017-03-12] MEDS: HEPARIN SODIUM - SQ 10,000 UNITS/ML VIAL SQ SCH ×2 (09:58→22:13)
[2017-03-12] MEDS: AZITHROMYCIN INJ 500 MG in SODIUM CHLOR 0.9% 250 ML INJ 250 ML IV SCH (09:59)
[2017-03-12] MEDS: NYSTAT/DIPHENHY/LIDO MOUTHWASH (Adult) 120ML SWISH-SWAL SCH (09:59)
[2017-03-12] MEDS: CEFEPIME INJ 2,000 MG in SODIUM CHLORIDE 0.9% INJ 100 ML IV SCH (10:25)
[2017-03-12] MEDS: BENEPROTEIN POWDER 1 PACK G-TUBE SCH ×3 (10:25→18:00)
--- NOTE | 2017-03-12 12:08 | HHI.HCPN ---
No return calls or messages from social media engagement with potential family last week. 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 RELATIVES LISTED. ~ NO RECORDS FOUND FOR CHEMO FREED IN [facility] ~ TOO MANY DOREEN ARRIAGA'S ALL IN 40'S" 330pm- requested additional accurints as Chemo Freed evidently in [place], [place] per social media. Also requested accurints on neice/nephaustin Haywood and Elvia Freed. Awaiting results. Anna Quach STATISTICAL PROGRAMMER, ANIMATION DIRECTOR Mar 12, 2017 11:29
[2017-03-12] MEDS: METOPROLOL TARTRATE 100 MG TAB PO SCH ×2 (12:18→21:00)
[2017-03-12] MEDS: DEXT 5%-NACL 0.45% 1000 ML INJ 1,000 ML IV SCH (12:19)
--- NOTE | 2017-03-12 13:50 | HHI.FPPN ---
Subjective Remarks Mr. Cuevas was afebrile with hypotension overnight (MAP in upper 60's). Per nursing staff and respiratory therapy staff at bedside: patient breathing well on CPAP. Patient's sedation has been weaned; he has not been responsive to verbal commands. Patient not responsive on exam. (Robles Pollock MD, R3) Objective Vitals Vital Signs Date Time Temp Pulse Resp B/P (MAP) Pulse Ox O2 Delivery O2 Flow Rate FiO2 03/12/17 11:23 94 30 03/12/17 10:53 30 03/12/17 07:42 100 30 03/12/17 07:00 98 Mechanical Ventilator 30 03/12/17 06:00 64 03/12/17 04:00 98.0 64 24 82/60 (67) 100 03/12/17 04:00 64 03/12/17 02:00 64 03/12/17 00:22 97 30 03/12/17 00:00 98.3 67 15 93/59 (70) 99 03/12/17 00:00 67 03/11/17 22:00 68 03/11/17 22:00 70 03/11/17 20:03 98 30 03/11/17 20:00 70 03/11/17 20:00 98.8 70 12 92/64 (73) 97 03/11/17 20:00 100 Mechanical Ventilator 30 03/11/17 18:00 77 03/11/17 16:48 100 30 03/11/17 16:00 98.4 70 13 107/75 (86) 98 03/11/17 16:00 70 03/11/17 14:00 76 I/O 03/11/17 03/11/17 03/11/17 03/12/17 03/12/17 03/12/17 07:00 15:00 23:00 07:00 15:00 23:00 Intake Total 1637 ml 1015 ml 444 ml 1328 ml 299 ml Output Total 400 ml 0 ml 400.0 ml 425 ml 0 ml Balance 1237 ml 1015 ml 44.0 ml 903 ml 299 ml IV Total 961 ml 1015 ml 263 ml 864 ml Tube Feeding 436 ml 181 ml 224 ml 139 ml Other 240 ml 240 ml 160 ml Output Urine Total 400 ml 400 ml 425 ml Tube Feeding Residual Discard 0 ml 0 ml 0 ml 0 ml 0 ml # Bowel Movements 1 1 0 (Robles Pollock MD, R3) Result Diagram: 03/12/17 0503/12/17 0523 Imaging Last Impressions Chest X-Ray 03/10/17 0600 Signed Impressions: Service Date/Time: Friday, March 10, 2017 04:07 - CONCLUSION: 1. Persistent left basilar consolidation/effusion. 2. Improving aeration in the right base. 3. Stable position of life support tubes. Tone Henry MD Brain MRI 03/10/17 0000 Signed Impressions: Service Date/Time: Friday, March 10, 2017 15:01 - CONCLUSION: No acute infarct or other acute intracranial abnormality. Atrophy and chronic white matter changes are again noted. Kilo Rowell MD Chest CT 03/09/17 0000 Signed Impressions: Service Date/Time: Thursday, March 09, 2017 04:59 - CONCLUSION: 1. Marked volume loss in the left hemithorax with near-complete collapse of the left lower lobe/lingula. There is still some aeration in the left upper lung. Some of this is due to the moderate sized left-sided effusion although there may be element of airway obstruction/mucus plugging as well. 2. Small right-sided effusion with become atelectatic changes in the right base. 3. Patchy biapical airspace disease.. Tone Henry MD Abdomen X-Ray 03/09/17 0000 Signed Impressions: Service Date/Time: Thursday, March 09, 2017 06:31 - CONCLUSION: Enteric tube as above. Maximus Pavon MD Shoulder X-Ray 03/05/17 0000 Signed Impressions: Service Date/Time: Sunday, March 05, 2017 20:57 - CONCLUSION: No acute disease. Rick Sanford MD Abdomen/Pelvis CT 03/04/17 0000 Signed Impressions: Service Date/Time: Saturday, March 04, 2017 10:31 - CONCLUSION: 1. There is no hydronephrosis or renal abnormality to explain the renal failure. However, there is subtle high density stranding along the medial and upper pole of the right kidney. Suggest followup CT to assess for change. 2. Abnormal mass arising from or abutting the spleen in the left upper quadrant measuring up to 7.5 cm. It contains a small amount of calcification. Suggest correlating with any prior imaging study that could offer additional characterization. If none are available suggest followup imaging to confirm stability and consider contrast enhanced CT or MRI for further characterization when patient condition permits. 3. Small bilateral pleural effusions, left larger than right, with associated compressive atelectasis. 4. Severe coronary artery calcification. Kilo Coulter MD Renal Ultrasound 02/27/17 0000 Signed Impressions: Service Date/Time: Monday, February 27, 2017 20:36 - CONCLUSION: 1. Mildly dilated left renal collecting system. Kidneys normal in size. Trace free fluid. Ruy Hussein MD Head CT 02/23/17 0000 Signed Impressions: Service Date/Time: Thursday, February 23, 2017 07:38 - CONCLUSION: No significant change has occurred. Maximus Pavon MD Objective Remarks GENERAL: male, lying in bed, awake; no obvious distress SKIN: Bilateral upper extremities with multiple well-healing scabs HEENT: ETT in place. Pupils grossly symmetrical; diameter ~2-3mm CARDIOVASCULAR: RRR without appreciable murmurs. grossly normal perfusion. No edema RESPIRATORY: normal rate; more clear breath sounds bilaterally, without wheezing GASTROINTESTINAL: Abdomen soft, non-tender, nondistended; + bowel sounds MUSCULOSKELETAL: No cyanosis or edema. NEURO: Awake, not alert. Not responsive to verbal commands. No obvious facial asymmetry. Peripheral motor/sensory function not assessed due to lack of responsiveness to questioning/command. (Robles Pollock MD, R3) Date of Insertion: Feb 23, 2017 (Robles Pollock MD, R3) A/P Assessment and Plan 57-year-old white male with past medical history of alcohol withdrawal presented to the ED with hypoglycemia and altered mental status; patient has had progressively worsening renal function and is currently being worked up for renal failure and continued altered mental status. Pt recently required intubation and sedation for respiratory distress and CT with opacification of the left lung concerning for left lung collapse vs mucus plugging. -Pt intubated and sedated on propofol/fentanyl as managed by base wad operator adjuster 03/10-03/11 - Pt having seizure-like activity - neuro consulted (Dr Kingston), stat Brain MRI w/o contrast, stat EEG, and Keppra 1g IV bolus, Lactate 1.9 today vs 1.5 yesterday. Repeat EEG today. Discharge Planning Pending workup for declining renal function, AMS Discussing with case management regarding placement and establish guardianship. Possibly SNF (Robles Pollock MD, R3) Attending Attestation Patient seen and examined. Case reviewed and discussed with the resident team. Agree with plan of care as discussed with me and documented in the resident note. hopefully Mr Cuevas improves. there was no more tremulous activity today. appreciate Dr Kingston's help! will need to start again to see what shape he will be in and if he can get accepted at a SNF. Hopefully, he is pleasant and cooperative. (Betzaida Connolly MD) Problem List: (1) Altered mental status ICD Codes: R41.82 - Altered mental status, unspecified Status: Acute Plan: 03/12- Sedation stopped this morning. Patient awake but not responsive to commands. -Neuro consulted- -Continue Keppra -OK to stop sedatives -EEG negative; jerking not suspected to be seizure activity -Treat agitation -CIWA tapered -Stopped Librium, stopped Ativan -Haldol 1mg PRN q8hrs for agitation/psychosis -Holding Seroquel 25 mg PO qhs due to being intubated/sedated. 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 -Continue supportive treatment -Recommend judicious benzodiazepine usage--benzos stopped -May benefit from some type of extended care facility -Occupational therapy recommended OT at rehabilitation (PT recommended OT) -ST consulted -regular and thin liquids per ST. patient is dependent with total help required. -Continue IVF while not having adequate intake -D5 1/2 NS at 40ml/hr -Seizure precautions Impression: AMS initially suspected secondary to alcoholism; persistent UDS positive for Benzos and Cocaine Brain MRI on 02/25- atrophy, periventricular changes without evidence for acute infarction Head CT on admission- no significant change EEG 03/12- diffuse slowing with medication effect and diffuse encephalopathy without focal abnormalities. No seizure activity; jerking episodes witnessed w/ o seizure activity Ammonia 20, RPR nonreactive CMP on admission with mild hyponatremia (134), transaminase elevations, calcium of 8.1 Hep panel pending Thiamine level high at 325 (2) Observed seizure-like activity ICD Codes: R56.9 - Unspecified convulsions Status: Resolved Plan: Impression: EEG 03/12 not suggestive of seizure activity MRI 03/10 without acute infarct or other acute intracranial abnormality. Atrophy and chronic white matter changes again noted ABG 03/11- pH 7.38, pCO2 54, pO2 69 Labs 03/11- ESR 33, B12 602, CK 24, RPR nonreactive, Cr 2.83, Ca 8.2, Na 139 -Neurology consulted -Continue Keppra -OK to wean sedation (3) Respiratory disease ICD Codes: J98.9 - Respiratory disorder, unspecified Plan: Impression: Progressive worsening of respiratory status 03/09 requiring move to ICU and intubation/sedation and bronchial lavage to remove mucous plugs from both left and right mainstem bronchi. CXR 03/10 with persistent L basilar consolidation/effusion. Improving aeration in right base. Stable position of life support tubes Bronchial washing cultures: Fungal culture with yeast AFB negative; culture pending Bronchial bacterial culture with light growth of normal ariela -Continue CPAP, O2 per CC/respiratory therapy (4) PNA (pneumonia) ICD Codes: J18.9 - Pneumonia, unspecified organism Status: Acute Plan: -Was treated with antibiotic therapy from 03/02 - 03/07 for 5-6 days to treat pneumonia; repeat broader spectrum abx since 03/09 to present: -Azithromycin 500mg IV daily -Cefepime 2g IV daily renally dosed -Flagyl 500 mg IV daily renally dosed -s/p Solumedrol 40mg IV BID -Continue Duonebs q4h -Continue O2 as needed Impression: Patient with symptoms of cough and intermittent hypoxia to low 90' s requiring O2 supplementation; worsening of respiratory disease 03/09 with subsequent intubation and bronchoscopy w/ washing. CXR 03/02 with increasing consolidative changes in the left base. CXR 03/10 with persistent L basilar consolidation/effusion. Improving aeration in right base. Stable position of life support tubes Initial blood cultures + for staph hominis; subsequently negative 02/26, 03/02 Sputum cultures not obtained Urine Legionella, strep pneumo negative (5) SAQIB (acute kidney injury) ICD Codes: N17.9 - Acute kidney failure, unspecified Status: Acute Plan: 03/12: Creatinine 2.83 -Nephrology consulted: Diagnosed with Acute renal failure acute tubular necrosis with drug use, Non oliguric, creatinine is slightly worse. -Changed IVF to D51/2NS, reduced the rate to 40 ml/hour. -Monitor BMP -CT abdomen/pelvis- No hydronephrosis. Subtle high density stranding medial/ upper right kidney. Abnormal mass arising from/abutting spleen LUQ measuring up to 7.5 cm with small amount of calcification. - Discussed with radiologist. Likely from previous trauma. No further workup indicated. Impression: Patient with SAQIB. Creatinine trended: 0.86 on admission -> 3.21 on 03/09 (has been >3 since 02/27) Suspect intrinsic cause as Cr elevation refractory to fluid supplementation, BUN /Cr ratio <20/1, and catheterized Previously on Vancomycin-> discontinued Renal US 02/27 with mild L hydronephrosis; normal kidneys No urine eosinophils Urine random Cr 41.6 Urine random sodium 97 (6) Hypertension ICD Codes: I10 - Essential (primary) hypertension Status: Resolved Plan: 03/12- Patient has recently been hypotensive with MAP's in upper 60's -Continue Amlodipine 10mg PO daily -Will hold Hydralazine 25 mg q12h since hypotensive -Metoprolol 100 mg q12h -Clonidine 0.1mg TID -Clonidine 0.1 mg q6h PRN For SBP >/= 180, DBP >/= 100 (7) FEN Status: Acute Plan: Fluids: gentle IVF with D5W 1/2 NS @ 40 ml/hr Electrolytes: Monitor and replace as needed Nutrition: Tube feeds GI PPx: Lansoprazole 30 mg NG/day VTE prophylaxis: Heparin 5000 units every 12 hours (Robles Pollock MD, R3) Problem Qualifiers (1) Altered mental status: Qualified Codes: R41.0 - Disorientation, unspecified (2) Hypertension: Qualified Codes: I10 - Essential (primary) hypertension Robles Pollock MD, R3 Mar 12, 2017 13:50 Betzaida Connolly MD Mar 12, 2017 15:46
[2017-03-12 14:30] LABS: ANA SCREEN POS (NEG)
--- NOTE | 2017-03-12 14:48 | HHI.CCPN ---
Subjective Remarks/Hospital Course This is a 57-year-old male that was found down and admitted to this hospital 02/23/2017. Urine tox screen revealed patient was positive for benzodiazepines and cocaine at that time. Since admission the patient has been on a [facility] protocol, neurology has been consulted Dr. Wayne, with continued supportive care. Over the last 48 hours the patient was noted to have elevation in his creatinine with a significant decrease in urine output acute renal failure nephrology was consulted the patient continues on gentle diuresis and received 80 mg of Lasix IV this afternoon and is currently on sodium bicarbonate infusion at 110 cc/an hour. Due to the patient's respiratory insufficiency, and altered mental status concern for possible continued respiratory decompensation the patient was transferred to the ICU, and critical care was consulted for management. Upon entering the patient's room the patient was noted to be lethargic having received 4 mg of Ativan in the last 4 hours, but opens eyes to sternal rub. The patient was noted to have O2 saturation of 95% on O2 via nasal cannula at 5 L with no accessory respiratory efforts. Stat ABG was ordered pending, to rule out CO2 narcosis. Since admission to ICU the patient was noted to diuresis of 700 cc. 03/03: Afebrile. The patient did not receive any Ativan since 3 PM on 03/02/17. The patient rested well overnight, eventually waking and responding. This a.m. the patient's noted to be sitting up in bed, alert and responsive. Librium has been added to medication regimen for alcohol withdrawal. Noted to be oriented to date of unable to provide name or place at this time. Essential tremors, fine tremors noted. The patient severely weak and unable to feed self without assistance. The patient's diet was advanced to regular diet, tolerating well, 100% consumption. PO meds were held since admission to ICU secondary to lethargy, all by mouth meds resumed this a.m.. The patient currently is compliant following commands, inappropriate responses, with noted incomprehensible words, language at times. Patient is noted to be very weak. Nasal cannula O2 has been weaned down to approximately 3 L, the patient appears in no respiratory distress. Subjective: 03/09: Reconsulted secondary acute respiratory failure. Chest x-ray earlier in the morning revealed collapse versus large pleural effusion left side. Patient oxygen requirements had increased from 4 L to a nonrebreather mask. CT thorax revealed likely mucous plugging/collapsed lung left side. Small to moderate left pleural effusion. Patient was combative upon arrival ICU in place in soft restraints. Due to mental status/mucous plugging patient was electively intubated using 20 mg etomidate and 50 mg, rocuronium. Patient was prompt aureus which revealed thick white mucous plugging in the left and right mainstem. These were lavaged to left upper lobe/lingula and left lower lobe, right upper middle and lower lobes. Samples were sent see orders. Currently sedated with propofol and fentanyl drips. 03/10: Tonic seizures today when propofol stopped. Seizures ceased with propofol bolus. Left pneumonia persists but improved aeration after bronch . 03/11: Gas exchange acceptable. Continues to have tonic "seizures" when propofol is lightened. EEG 03/10 states no seizures but we will repeat EEG again today with stimulation and off propofol. Can't extubate until this "seizure" activity is resolved. Vomited tube feeds, will reduce and add reglan. 03/12: Off sedation tolerating CPAP even though intermittently apneic. Appears to follows commands but weekly on the upper extremity. No obvious seizures. EEG negative for seizure 03/11/17. Creatinine slightly improved to 2.8 from 3 Objective Vital Signs Date Time Temp Pulse Resp B/P (MAP) Pulse Ox O2 Delivery O2 Flow Rate FiO2 03/12/17 13:45 93 Nasal Cannula 5.00 03/12/17 11:23 30 03/12/17 06:00 64 03/12/17 04:00 98.0 24 82/60 (67) Intake and Output 03/12/17 03/12/17 03/13/17 08:00 16:00 00:00 Intake Total 1328 ml 299 ml Output Total 425.0 ml Balance 903.0 ml 299 ml Result Diagram: 03/12/17 0523 03/12/17 0523 Other Results Microbiology Date/Time Source Procedure Growth Status 03/09/17 18:50 Nasal Aspirate Influenza Types A,B Antigen (LILLY) - Final NEGATIVE FOR FLU A AND B ANTIGEN.... Complete 03/09/17 18:50 Urine Catheterized Urine Streptococcus pneumoniae Antigen (M - Final PRESUMPTIVE NEGATIVE FOR STREPTOCOCCU... Complete 03/09/17 18:50 Urine Clean Catch Legionella Antigen - Final PRESUMPTIVE NEGATIVE FOR LEGIONELLA P... Complete Imaging Last Impressions Shoulder X-Ray 03/05/17 0000 Signed Impressions: Service Date/Time: Sunday, March 05, 2017 20:57 - CONCLUSION: No acute disease. Rick Sanford MD Abdomen/Pelvis CT 03/04/17 0000 Signed Impressions: Service Date/Time: Saturday, March 04, 2017 10:31 - CONCLUSION: 1. There is no hydronephrosis or renal abnormality to explain the renal failure. However, there is subtle high density stranding along the medial and upper pole of the right kidney. Suggest followup CT to assess for change. 2. Abnormal mass arising from or abutting the spleen in the left upper quadrant measuring up to 7.5 cm. It contains a small amount of calcification. Suggest correlating with any prior imaging study that could offer additional characterization. If none are available suggest followup imaging to confirm stability and consider contrast enhanced CT or MRI for further characterization when patient condition permits. 3. Small bilateral pleural effusions, left larger than right, with associated compressive atelectasis. 4. Severe coronary artery calcification. Kilo Coulter MD Chest X-Ray 03/02/17 0000 Signed Impressions: Service Date/Time: Thursday, March 02, 2017 08:18 - CONCLUSION: Increasing consolidative changes left base. Nasir Mack MD FACR Renal Ultrasound 02/27/17 0000 Signed Impressions: Service Date/Time: Monday, February 27, 2017 20:36 - CONCLUSION: 1. Mildly dilated left renal collecting system. Kidneys normal in size. Trace free fluid. Ruy Hussein MD Brain MRI 02/25/17 0000 Signed Impressions: Service Date/Time: Saturday, February 25, 2017 12:37 - CONCLUSION: Atrophy, periventricular changes without evidence for acute infarction. Nasir Mack MD FACR Head CT 02/23/17 0000 Signed Impressions: Service Date/Time: Thursday, February 23, 2017 07:38 - CONCLUSION: No significant change has occurred. Maximus Pavon MD Objective Remarks GENERAL: 57-year-old male, Awake on vent, encephalopathy SKIN: Warm and dry. Clean gauze dressing right forearm HEAD: Atraumatic. Normocephalic. EYES: Pupils equal and round around 2 mm bilaterally and reactive. No scleral icterus. No injection or drainage. ENT: No nasal bleeding or discharge. Mucous membranes pink and moist. NECK: Trachea midline. Orally intubated. CARDIOVASCULAR: RRR. S1, S2 no S4. Without murmur. No JVD. RESPIRATORY: Diminished breath sounds left lung thomas. No wheezing GASTROINTESTINAL: Abdomen soft, non-tender, nondistended. Active bowel sounds appreciated MUSCULOSKELETAL: Extremities without without significant peripheral edema. No obvious deformities. Right forearm dressing, noted cellulitis NEUROLOGICAL: Eyes are open spontaneously follows commands intermittently in the upper extremity. Moving all 4 extremities equally. Tolerating CPAP Date of Insertion: Feb 23, 2017 A/P Assessment and Plan Neuro/Psych: Admission with EtOH withdrawal - likely completed Polysubstance abuse including cocaine and benzodiazepines Acute delirium/multifactorial likely toxic metabolic secondary to hypoxia Polyneuropathy of critical illness Patient is currently on propofol/fentanyl drips for sedation/analgesia while intubated. Hold all sedation for possible extubation Goal of RASS -0 Patient is followed by Dr. Wayne/neurology. EEG's reveal moderate encephalopathy no epileptiform activity Previous on Seroquel 25 mg at night and Haldol when necessary Currently on Librium 50 mg twice a day, will reduce to 25 mg twice a day Seizure precautions Seizures 03/10, recur when propofol off. Continue thiamine 100 mg daily Psychiatry consulted-complete evaluation to determine adequacy for self-care Respiratory: Acute hypoxemic respiratory failure secondary to aspiration PRVC 16/500/1/5/100. CPAP trial with possible extubation Ventilator bundle. Albuterol/ipratropium aerosols every 4 hours with albuterol aerosols every 2 hours. Dyspnea At hypertonic saline aerosols every 4 hours 5 days to thin secretions Follow-up chest x-ray. CT thorax from 03/09 revealed collapse left upper/lingula lobes with significant secretions left main bronchus. Improved aeration 03/10 Cardiovascular: Hypertension Currently on amlodipine 10 mg daily, clonidine 0.1 mg 3 times a day and metoprolol 5 mg by mouth twice a day for hypertension Maintain MAP > 65 mmHG Renal: Acute kidney injury secondary to ATN Nephrology following Dr. Martinez. Creat improved from 3 to 2.8 Accurate I's and O's Monitor urine output No signs of hydronephrosis on renal imaging Urine eosinophils negative FEN/GI: Mild protein calorie malnutrition Hyperkalemia Hep C AB + Patient is currently nothing by mouth for possible extubation Place NGT post extubation. Swallowing eval in 24 hours Lansoprazole for GI prophylaxis Docusate sodium senna 1 tablet twice a day for bowel regimen Heme/ID: Macro Anemia Thrombocytopenia Pneumonia Patiently pancultured including bronchoscopy washings, UA. Blood cultures 2 performed Currently on cefepime, Flagyl and azithromycin renally dosed since 03/09/17 Endocrine: Sliding-scale insulin to maintain euglycemia/low regimen with NovoLog every 6 hours Prophylaxis: GI Prophylaxis Lansoprazole DVT Prophylaxis -- SCDs/heparin subcutaneous Lines: Peripheral IVs providing adequate access at this time Overall impression: Critically ill with new onset recurrent seizures and hypoxemic respiratory failure. Left lung more well aerated after bronchoscopy. Tolerated weaning trial today. Extubate. Level 3 Grace Boateng MD Mar 12, 2017 14:48
[2017-03-12] MEDS ORDERED: DEXMEDETOMIDINE INJ 200 MCG in SODIUM CHLORIDE 0.9% INJ 50 ML IV PRN (18:00)
[2017-03-12] MEDS ORDERED: BUMETANIDE INJ 1 MG/4 ML VIAL IV PUSH ONE (18:00)
--- NOTE | 2017-03-12 18:05 | HHI.NPPN ---
Subjective History of Present Illness 57-year-old male with the alcohol withdrawal, altered mental status, acute renal failure Additional Remarks Intubated on the , had bronchoscopy because of mucus plug. On Cefepime, Zithromax and Flagyl. extubated remains confused Objective Data Data 03/12/17 03/13/17 19:00 07:00 Intake Total 1156 ml Output Total 0 ml Balance 1156 ml IV Total 857 ml Tube Feeding 139 ml Other 160 ml Tube Feeding Residual Discard 0 ml Vital Signs Date Time Temp Pulse Resp B/P (MAP) Pulse Ox O2 Delivery O2 Flow Rate FiO2 03/12/17 18:00 87 Nasal Cannula 5.00 03/12/17 16:00 98.4 84 15 104/67 (79) 95 03/12/17 16:00 84 03/12/17 14:00 104 03/12/17 13:45 93 Nasal Cannula 5.00 03/12/17 13:45 93 Nasal Cannula 5 03/12/17 13:45 93 Nasal Cannula 5.00 03/12/17 12:00 98.6 134 17 165/107 (126) 94 03/12/17 12:00 134 03/12/17 11:23 94 30 03/12/17 10:53 30 03/12/17 10:00 87 03/12/17 08:00 98.2 90 12 100/66 (77) 99 03/12/17 08:00 90 03/12/17 07:42 100 30 03/12/17 07:00 98 Mechanical Ventilator 30 03/12/17 06:00 64 03/12/17 04:00 98.0 64 24 82/60 (67) 100 03/12/17 04:00 64 03/12/17 02:00 64 03/12/17 00:22 97 30 03/12/17 00:00 98.3 67 15 93/59 (70) 99 03/12/17 00:00 67 03/11/17 22:00 68 03/11/17 22:00 70 03/11/17 20:03 98 30 03/11/17 20:00 70 03/11/17 20:00 98.8 70 12 92/64 (73) 97 03/11/17 20:00 100 Mechanical Ventilator 30 -: 03/12/17 0523 03/12/17 0523 Physical Exam General Appearance: Malnourished Eyes Eye Exam: Pupils Equal Neck Neck Exam: Neck Supple Pulmonary Resp Exam: Crackles, Rhonchi, Diminished Breath Sounds Cardiology CV Exam: Regular, Normal Sinus Rhythm Gastrointestinal/Abdomen GI Exam: Soft, Non-Tender, Bowel Sounds Present Musculoskeletal MS Exam: Unable to Ambulate MS Remarks left shoulder sub laxation ? dislocated Extremeties Extremities Exam: No Edema Assessment/Plan Problem List: (1) SAQIB (acute kidney injury) ICD Codes: N17.9 - Acute kidney failure, unspecified Status: Acute Plan: Acute renal failure acute tubular necrosis with drug use Non oliguric, creatinine is better Hepatitis C positive check Ammonia s/p bronchoscopy with removal of mucous plug intubated Monitor BMP CT scan abdominal reviewed Subtle high density stranding medial/upper right kidney. Abnormal mass arising from/abutting spleen LUQ measuring up to 7.5 cm with small amount of calcification (2) Alcohol withdrawal ICD Codes: F10.239 - Alcohol dependence with withdrawal, unspecified Status: Chronic Plan: Patient remained in altered mental status (3) Hypertension ICD Codes: I10 - Essential (primary) hypertension Status: Resolved Plan: Patient's blood pressure was labile continue to monitor Problem Qualifiers (1) Alcohol withdrawal: Qualified Codes: F10.231 - Alcohol dependence with withdrawal delirium (2) Hypertension: Qualified Codes: I10 - Essential (primary) hypertension Daryl Martinez MD Mar 12, 2017 18:05
--- NOTE | 2017-03-12 18:27 | RADRPT ---
EXAM DATE/TIME: 03/12/2017 17:55 [facility] COMPARISON: CHEST SINGLE AP, March 10, 2017, 4:07. INDICATIONS : Respiratory distress. MEDICAL HISTORY : Hepatitis C, Seizures, MT, Arthritis, Depression SURGICAL HISTORY : None. ENCOUNTER: Subsequent ACUITY: 2 weeks PAIN SCORE: Non-responsive. LOCATION: Bilateral chest FINDINGS: A single view of the chest demonstrates continued improvement aeration right base with persistent lef t basilar consolidation/effusion. Heart size remains prominent. Endotracheal and nasogastric tubes perry ve been removed. CONCLUSION: 1. Interval removal of the endotracheal and nasogastric tubes. 2. Continued improved aeration in the right base. Persistent but stable left basilar consolidation/ef fusion. Tone Henry MD on March 12, 2017 at 18:25 Board Certified Radiologist. This report was verified electronically.
[2017-03-12] MEDS ORDERED: PROPOFOL 1000 MG/100 ML INJ 100 ML ONE (19:37)
[2017-03-12] MEDS ORDERED: SUCCINYLCHOLINE CHLORIDE 100 MG/5 ML SYRINGE IV PUSH ONE (20:00)
--- NOTE | 2017-03-12 20:17 | RADRPT ---
EXAM DATE/TIME: 03/12/2017 19:45 [facility] COMPARISON: CHEST SINGLE AP, March 10, 2017, 4:07. CHEST SINGLE AP, March 12, 2017, 17:55. INDICATIONS : ET tube placement MEDICAL HISTORY : Hepatitis C, Seizures, CT, Arthritis, Depression SURGICAL HISTORY : None. ENCOUNTER: Subsequent ACUITY: 2 weeks PAIN SCORE: Non-responsive. LOCATION: Chest FINDINGS: The endotracheal tube has its tip in good position 4 cm above the jared. The left lung is clear. M ild diffuse increased interstitial markings are noted involving the right lung. The heart is enlarge d. Degenerative changes are noted throughout the thoracolumbar spine. CONCLUSION: 1. Endotracheal tube in good position 4 cm above the jared. 2. Mild diffuse increased interstitial markings involving the right lung consistent with atelectasis and/or infiltrate. 3. Cardiomegaly. 4. Degenerative changes and scoliosis of the thoracolumbar spine. Rick Sanford MD on March 12, 2017 at 20:12 Board Certified Radiologist. This report was verified electronically.
--- NOTE | 2017-03-12 21:04 | PD.PROCEDR ---
Procedure Note Procedure Endotracheal Intubation A time-out was completed verifying correct patient, procedure, site, positioning , and special equipment if applicable. The patient was placed in a flat position. Sedation was obtained using Etomidate 20mg. The patient was easily ventilated using an ambu bag. The [employer]/ MAC 4 BLADE was used and inserted into the oropharynx at which time there was a Grade 1 view of the vocal cords. A 8-malay endotracheal tube was inserted and visualized going through the vocal cords. The stylette was removed. Colorimetric change was visualized on the CO2 meter. Breath sounds were heard in both lung thomas equally. The endotracheal tube was placed at 23 cm, measured at the teeth. A chest x-ray was ordered to assess for pneumothorax and verify endotrachealtube placement. Estimated Blood Loss: 0 The patient tolerated the procedure well and there were no complications. El Cid MD Mar 12, 2017 9:04 pm
[2017-03-12 22:11] LABS: BLOOD GAS CARBOXYHEMOGLOBIN 1.3 % (0-4); BLOOD GAS HCO3 27 mmol/L (22-26); BLOOD GAS METHEMOGLOBIN 0.8 % (0-2); BLOOD GAS O2 HGB SATURATION 65 % (90-100); BLOOD GAS OXYGEN CONTENT 10.3 Vol % (12.0-20.0); BLOOD GAS PCO2 50 mmHg (38-42); BLOOD GAS PO2 37 mmHg (61-120); BLOOD GAS TOTAL HGB 11.2 G/DL (12.0-16.0); TEMP CORR TO 98.6
[2017-03-12 22:13] LABS: CRITICAL VALUE YES; OXYGEN DEVICE VENTILATOR
[2017-03-12 22:15] LABS: DRAW SITE RT RADIAL; FIO2 100 %; NUMBER OF ARTERIAL PUNCTURES 1; ULNAR PULSE PRESENT
[2017-03-12 22:16] LABS: STAT YES
[2017-03-13] VITALS (18 sets, daily range): BP systolic 85–117; BP diastolic 56–87; PULSE 72–107; RESP 18–24; TEMP 97.9–98.5; O2SAT 100
[2017-03-13] MEDS: PROPOFOL 1000 MG/100 ML INJ 100 ML IV PRN ×3 (02:34→19:12)
[2017-03-13] MEDS: metroNIDAZOLE 500 MG INJ 100 ML IV SCH ×3 (02:34→17:12)
[2017-03-13] MEDS: RESP: SODIUM CHLORIDE 3% 4 ML NEB NEB SCH ×5 (03:55→19:58)
[2017-03-13] MEDS: RESP: ALBUTEROL 2.5 MG/3 ML NEB (PRN) NEB ×3 (03:55→19:58)
[2017-03-13] MEDS: METOCLOPRAMIDE HCL 10 MG/2 ML VIAL IV PUSH SCH ×2 (05:31→12:42)
[2017-03-13] MEDS: ARTIFICIAL TEARS OPTH SOLN 15 ML BTL EACH EYE SCH ×3 (05:31→22:07)
[2017-03-13] MEDS ORDERED: BUMETANIDE INJ 1 MG/4 ML VIAL IV PUSH ONE (06:00)
[2017-03-13 06:06] LABS: ANION GAP 10 MEQ/L (5-15); AST (GOT) 59 U/L (15-37); BICARBONATE 28.1 MEQ/L (21.0-32.0); CHLORIDE 102 MEQ/L (98-107); GLOMERULAR FILTRATION RATE 23 ML/MIN (>89); POTASSIUM 4.5 MEQ/L (3.5-5.1); SODIUM (NA) 140 MEQ/L (136-145)
[2017-03-13 06:09] LABS: ALKALINE PHOSPHATASE 82 U/L (45-117); ALT (GPT) 42 U/L (12-78); TOTAL BILIRUBIN ADULT 0.9 MG/DL (0.2-1.0)
[2017-03-13 06:15] LABS: BLOOD UREA NITROGEN 33 MG/DL (7-18)
[2017-03-13] MEDS: CHLORHEXIDINE 0.12% (ORAL KIT) 15 ML CUP MT SCH ×2 (08:00→20:00)
[2017-03-13] MEDS: AZITHROMYCIN INJ 500 MG in SODIUM CHLOR 0.9% 250 ML INJ 250 ML IV SCH (08:17)
[2017-03-13] MEDS: chlordiazePOXIDE 25 MG CAP PO SCH ×2 (08:22→22:02)
[2017-03-13] MEDS: LANSOPRAZOLE SOLUTAB 30 MG TAB NG SCH (08:22)
[2017-03-13] MEDS: MULTIVITAMIN TAB PO SCH (08:22)
[2017-03-13] MEDS: BENEPROTEIN POWDER 1 PACK G-TUBE SCH ×3 (08:23→17:12)
[2017-03-13] MEDS: THIAMINE HCL 100 MG TAB PO SCH (08:23)
[2017-03-13] MEDS: cloNIDine HCL 0.1 MG TAB PO SCH ×3 (08:23→17:11)
[2017-03-13] MEDS: SODIUM CHLORIDE 0.9% FLUSH 10 ML FLUSH IV FLUSH SCH ×2 (08:24→22:02)
--- NOTE | 2017-03-13 08:55 | HHI.CCPN ---
Subjective Remarks/Hospital Course This is a 57-year-old male that was found down and admitted to this hospital 02/23/2017. Urine tox screen revealed patient was positive for benzodiazepines and cocaine at that time. Since admission the patient has been on a [facility] protocol, neurology has been consulted Dr. Wayne, with continued supportive care. Over the last 48 hours the patient was noted to have elevation in his creatinine with a significant decrease in urine output acute renal failure nephrology was consulted the patient continues on gentle diuresis and received 80 mg of Lasix IV this afternoon and is currently on sodium bicarbonate infusion at 110 cc/an hour. Due to the patient's respiratory insufficiency, and altered mental status concern for possible continued respiratory decompensation the patient was transferred to the ICU, and critical care was consulted for management. Upon entering the patient's room the patient was noted to be lethargic having received 4 mg of Ativan in the last 4 hours, but opens eyes to sternal rub. The patient was noted to have O2 saturation of 95% on O2 via nasal cannula at 5 L with no accessory respiratory efforts. Stat ABG was ordered pending, to rule out CO2 narcosis. Since admission to ICU the patient was noted to diuresis of 700 cc. 03/03: Afebrile. The patient did not receive any Ativan since 3 PM on 03/02/17. The patient rested well overnight, eventually waking and responding. This a.m. the patient's noted to be sitting up in bed, alert and responsive. Librium has been added to medication regimen for alcohol withdrawal. Noted to be oriented to date of unable to provide name or place at this time. Essential tremors, fine tremors noted. The patient severely weak and unable to feed self without assistance. The patient's diet was advanced to regular diet, tolerating well, 100% consumption. PO meds were held since admission to ICU secondary to lethargy, all by mouth meds resumed this a.m.. The patient currently is compliant following commands, inappropriate responses, with noted incomprehensible words, language at times. Patient is noted to be very weak. Nasal cannula O2 has been weaned down to approximately 3 L, the patient appears in no respiratory distress. Subjective: 03/09: Reconsulted secondary acute respiratory failure. Chest x-ray earlier in the morning revealed collapse versus large pleural effusion left side. Patient oxygen requirements had increased from 4 L to a nonrebreather mask. CT thorax revealed likely mucous plugging/collapsed lung left side. Small to moderate left pleural effusion. Patient was combative upon arrival ICU in place in soft restraints. Due to mental status/mucous plugging patient was electively intubated using 20 mg etomidate and 50 mg, rocuronium. Patient was prompt aureus which revealed thick white mucous plugging in the left and right mainstem. These were lavaged to left upper lobe/lingula and left lower lobe, right upper middle and lower lobes. Samples were sent see orders. Currently sedated with propofol and fentanyl drips. 03/10: Tonic seizures today when propofol stopped. Seizures ceased with propofol bolus. Left pneumonia persists but improved aeration after bronch . 03/11: Gas exchange acceptable. Continues to have tonic "seizures" when propofol is lightened. EEG 03/10 states no seizures but we will repeat EEG again today with stimulation and off propofol. Can't extubate until this "seizure" activity is resolved. Vomited tube feeds, will reduce and add reglan. 03/12: Off sedation tolerating CPAP even though intermittently apneic. Appears to follows commands but weekly on the upper extremity. No obvious seizures. EEG negative for seizure 03/11/17. Creatinine slightly improved to 2.8 from 3 03/13: Failed extubation on 03/12. Currently sedated, orally intubated on mechanical ventilation. Has thick copious respiratory secretions per [employer]. Objective Vital Signs Date Time Temp Pulse Resp B/P (MAP) Pulse Ox O2 Delivery O2 Flow Rate FiO2 03/13/17 07:55 100 40 03/13/17 06:00 86 03/13/17 04:00 98.5 24 85/60 (68) 03/12/17 20:00 Mechanical Ventilator 03/12/17 18:00 5.00 Intake and Output 03/13/17 03/13/17 03/14/17 08:00 16:00 00:00 Intake Total 252 ml Output Total 900 ml Balance -648 ml Result Diagram: 03/12/17 0523 03/13/17 0501 Other Results Laboratory Tests Test 03/12/17 20:00 03/13/17 05:01 Blood Gas Puncture Site RT RADIAL Blood Gas Patient Temperature 98.6 Blood Gas HCO3 27 mmol/L Blood Gas Base Excess 2.0 mmol/L Blood Gas Oxygen Saturation 65 % Arterial Blood pH 7.35 Arterial Blood Partial Pressure CO2 50 mmHg Arterial Blood Partial Pressure O2 37 mmHg Arterial Blood Oxygen Content 10.3 Vol % Arterial Blood Carboxyhemoglobin 1.3 % Arterial Blood Methemoglobin 0.8 % Blood Gas Hemoglobin 11.2 G/DL Oxygen Delivery Device VENTILATOR Blood Gas Ventilator Setting SEE COMMENT Blood Gas Inspired Oxygen 100 % Blood Urea Nitrogen 33 MG/DL Creatinine 2.88 MG/DL Random Glucose 75 MG/DL Total Protein 6.1 GM/DL Albumin 2.5 GM/DL Calcium Level 8.6 MG/DL Alkaline Phosphatase 82 U/L Aspartate Amino Transf (AST/SGOT) 59 U/L Alanine Aminotransferase (ALT/SGPT) 42 U/L Total Bilirubin 0.9 MG/DL Sodium Level 140 MEQ/L Potassium Level 4.5 MEQ/L Chloride Level 102 MEQ/L Carbon Dioxide Level 28.1 MEQ/L Anion Gap 10 MEQ/L Estimat Glomerular Filtration Rate 23 ML/MIN Ammonia 19 MCMOL/L Imaging Last Impressions Shoulder X-Ray 03/05/17 0000 Signed Impressions: Service Date/Time: Sunday, March 05, 2017 20:57 - CONCLUSION: No acute disease. Rick Sanford MD Abdomen/Pelvis CT 03/04/17 0000 Signed Impressions: Service Date/Time: Saturday, March 04, 2017 10:31 - CONCLUSION: 1. There is no hydronephrosis or renal abnormality to explain the renal failure. However, there is subtle high density stranding along the medial and upper pole of the right kidney. Suggest followup CT to assess for change. 2. Abnormal mass arising from or abutting the spleen in the left upper quadrant measuring up to 7.5 cm. It contains a small amount of calcification. Suggest correlating with any prior imaging study that could offer additional characterization. If none are available suggest followup imaging to confirm stability and consider contrast enhanced CT or MRI for further characterization when patient condition permits. 3. Small bilateral pleural effusions, left larger than right, with associated compressive atelectasis. 4. Severe coronary artery calcification. Kilo Coulter MD Chest X-Ray 03/02/17 0000 Signed Impressions: Service Date/Time: Thursday, March 02, 2017 08:18 - CONCLUSION: Increasing consolidative changes left base. Nasir Mack MD FACR Renal Ultrasound 02/27/17 0000 Signed Impressions: Service Date/Time: Monday, February 27, 2017 20:36 - CONCLUSION: 1. Mildly dilated left renal collecting system. Kidneys normal in size. Trace free fluid. Ruy Hussein MD Brain MRI 02/25/17 0000 Signed Impressions: Service Date/Time: Saturday, February 25, 2017 12:37 - CONCLUSION: Atrophy, periventricular changes without evidence for acute infarction. Nasir Mack MD FACR Head CT 02/23/17 0000 Signed Impressions: Service Date/Time: Thursday, February 23, 2017 07:38 - CONCLUSION: No significant change has occurred. Maximus Pavon MD Objective Remarks GENERAL: 57-year-old male, Awake on vent, encephalopathy SKIN: Warm and dry. Clean gauze dressing right forearm HEAD: Atraumatic. Normocephalic. EYES: Pupils equal and round around 2 mm bilaterally and reactive. No scleral icterus. No injection or drainage. ENT: No nasal bleeding or discharge. Mucous membranes pink and moist. NECK: Trachea midline. Orally intubated. CARDIOVASCULAR: RRR. S1, S2 no S4. Without murmur. No JVD. RESPIRATORY: Orally intubated on mechanical ventilation, Diminished breath sounds left lung thomas. No wheezing GASTROINTESTINAL: Abdomen soft, non-tender, nondistended. Active bowel sounds appreciated MUSCULOSKELETAL: Extremities without without significant peripheral edema. No obvious deformities. Right forearm dressing, noted cellulitis NEUROLOGICAL: Eyes are open spontaneously follows commands intermittently in the upper extremity. Moving all 4 extremities equally. Date of Insertion: Feb 23, 2017 A/P Assessment and Plan Neuro/Psych: Admission with EtOH withdrawal - likely completed Polysubstance abuse including cocaine and benzodiazepines Acute delirium/multifactorial likely toxic metabolic secondary to hypoxia Polyneuropathy of critical illness Patient is currently on propofol/fentanyl drips for sedation/analgesia while intubated. Hold all sedation for possible extubation Goal of RASS -0 Patient is followed by Dr. Wayne/neurology. EEG's reveal moderate encephalopathy no epileptiform activity Previous on Seroquel 25 mg at night and Haldol when necessary Librium decreaswed from 50mg BID to 25 mg twice a day on 03/12 Seizure precautions Seizures 03/10, recur when propofol off. Continue thiamine 100 mg daily Psychiatry consulted-complete evaluation to determine adequacy for self-care Respiratory: Acute hypoxemic respiratory failure secondary to aspiration [facility] 16/500/06/29/39. CPAP trial with possible extubation Ventilator bundle. Albuterol/ipratropium aerosols every 4 hours with albuterol aerosols every 2 hours. Dyspnea hypertonic saline aerosols every 4 hours 5 days to thin secretions Follow-up chest x-ray. CT thorax from 03/09 revealed collapse left upper/lingula lobes with significant secretions left main bronchus. Improved aeration 03/10 Cardiovascular: Hypertension Currently on amlodipine 10 mg daily, clonidine 0.1 mg 3 times a day and metoprolol 5 mg by mouth twice a day for hypertension Maintain MAP > 65 mmHG Renal: Acute kidney injury secondary to ATN Nephrology following Dr. Martinez. Creat improved from 3 to 2.8 Accurate I's and O's Monitor urine output No signs of hydronephrosis on renal imaging Urine eosinophils negative FEN/GI: Mild protein calorie malnutrition Hyperkalemia Hep C AB + Patient is currently nothing by mouth for possible extubation Place NGT post extubation. Swallowing eval in 24 hours Lansoprazole for GI prophylaxis Docusate sodium senna 1 tablet twice a day for bowel regimen Heme/ID: Macro Anemia Thrombocytopenia Pneumonia Patiently pancultured including bronchoscopy washings, UA. Blood cultures 2 performed Currently on cefepime, Flagyl and azithromycin renally dosed since 03/09/17 Endocrine: Sliding-scale insulin to maintain euglycemia/low regimen with NovoLog every 6 hours Prophylaxis: GI Prophylaxis Lansoprazole DVT Prophylaxis -- SCDs/heparin subcutaneous Lines: Peripheral IVs providing adequate access at this time Overall impression: Critically ill with new onset recurrent seizures and hypoxemic respiratory failure. Left lung more well aerated after bronchoscopy. Failed extubation on 03/12 and required reintubation. Level 3 Kevon Morales MD Mar 13, 2017 08:55
[2017-03-13] MEDS: METOPROLOL TARTRATE 100 MG TAB PO SCH ×2 (09:00→21:00)
[2017-03-13] MEDS: CEFEPIME INJ 2,000 MG in SODIUM CHLORIDE 0.9% INJ 100 ML IV SCH (09:09)
[2017-03-13] MEDS: HEPARIN SODIUM - SQ 10,000 UNITS/ML VIAL SQ SCH ×2 (10:06→22:03)
--- NOTE | 2017-03-13 11:03 | HHI.FPPN ---
Subjective Remarks Patient was extubated yesterday. He was not following commands. He had an increasing oxygen requirement, and was subsequently reintubated around 8 PM last night. Per nurse report, he is still not following commands, he is having bowel movements and being given lactulose for hyperammonemia, and they are unsure about OG-tube placement. Ordered x-ray to confirm OG tube placement. Patient is unresponsive and not following commands. (Anderson Matt MD R2) Objective Vitals Vital Signs Date Time Temp Pulse Resp B/P (MAP) Pulse Ox O2 Delivery O2 Flow Rate FiO2 03/13/17 07:55 100 40 03/13/17 07:00 100 Mechanical Ventilator 50 03/13/17 06:00 86 03/13/17 04:00 88 03/13/17 04:00 98.5 88 24 85/60 (68) 100 03/13/17 03:57 100 50 03/13/17 02:00 92 03/13/17 00:00 90 03/13/17 00:00 98.2 90 21 99/70 (80) 100 03/12/17 23:59 100 90 03/12/17 22:00 85 03/12/17 20:28 94 100 03/12/17 20:00 86 Mechanical Ventilator 100 03/12/17 20:00 98.5 78 18 102/71 (81) 86 03/12/17 20:00 78 03/12/17 18:00 84 03/12/17 18:00 87 Nasal Cannula 5.00 03/12/17 16:00 98.4 84 15 104/67 (79) 95 03/12/17 16:00 84 03/12/17 14:00 104 03/12/17 13:45 93 Nasal Cannula 5.00 03/12/17 13:45 93 Nasal Cannula 5 03/12/17 13:45 93 Nasal Cannula 5.00 03/12/17 12:00 98.6 134 17 165/107 (126) 94 03/12/17 12:00 134 03/12/17 11:23 94 30 I/O 03/12/17 03/12/17 03/12/17 03/13/17 03/13/17 03/13/17 07:00 15:00 23:00 07:00 15:00 23:00 Intake Total 1328 ml 1156 ml 100 ml 252 ml 250 ml Output Total 425 ml 0 ml 850 ml 900 ml Balance 903 ml 1156 ml -750 ml -648 ml 250 ml IV Total 864 ml 857 ml 100 ml 222 ml 250 ml Tube Feeding 224 ml 139 ml Other 240 ml 160 ml 30 ml Output Urine Total 425 ml 850 ml 900 ml Tube Feeding Residual Discard 0 ml 0 ml # Bowel Movements 0 3 1 (Anderson Matt MD R2) Result Diagram: 03/12/17 0523 03/13/17 0501 Imaging Last Impressions Chest X-Ray 03/12/17 0000 Signed Impressions: Service Date/Time: Sunday, March 12, 2017 19:45 - CONCLUSION: 1. Endotracheal tube in good position 4 cm above the jared. 2. Mild diffuse increased interstitial markings involving the right lung consistent with atelectasis and/or infiltrate. 3. Cardiomegaly. 4. Degenerative changes and scoliosis of the thoracolumbar spine. Rick Sanford MD Brain MRI 03/10/17 0000 Signed Impressions: Service Date/Time: Friday, March 10, 2017 15:01 - CONCLUSION: No acute infarct or other acute intracranial abnormality. Atrophy and chronic white matter changes are again noted. Kilo Rowell MD Chest CT 03/09/17 0000 Signed Impressions: Service Date/Time: Thursday, March 09, 2017 04:59 - CONCLUSION: 1. Marked volume loss in the left hemithorax with near-complete collapse of the left lower lobe/lingula. There is still some aeration in the left upper lung. Some of this is due to the moderate sized left-sided effusion although there may be element of airway obstruction/mucus plugging as well. 2. Small right-sided effusion with become atelectatic changes in the right base. 3. Patchy biapical airspace disease.. Tone Henry MD Abdomen X-Ray 03/09/17 0000 Signed Impressions: Service Date/Time: Thursday, March 09, 2017 06:31 - CONCLUSION: Enteric tube as above. Maximus Pavon MD Shoulder X-Ray 03/05/17 0000 Signed Impressions: Service Date/Time: Sunday, March 05, 2017 20:57 - CONCLUSION: No acute disease. Rick Sanford MD Abdomen/Pelvis CT 03/04/17 0000 Signed Impressions: Service Date/Time: Saturday, March 04, 2017 10:31 - CONCLUSION: 1. There is no hydronephrosis or renal abnormality to explain the renal failure. However, there is subtle high density stranding along the medial and upper pole of the right kidney. Suggest followup CT to assess for change. 2. Abnormal mass arising from or abutting the spleen in the left upper quadrant measuring up to 7.5 cm. It contains a small amount of calcification. Suggest correlating with any prior imaging study that could offer additional characterization. If none are available suggest followup imaging to confirm stability and consider contrast enhanced CT or MRI for further characterization when patient condition permits. 3. Small bilateral pleural effusions, left larger than right, with associated compressive atelectasis. 4. Severe coronary artery calcification. Kilo Coulter MD Renal Ultrasound 02/27/17 0000 Signed Impressions: Service Date/Time: Monday, February 27, 2017 20:36 - CONCLUSION: 1. Mildly dilated left renal collecting system. Kidneys normal in size. Trace free fluid. Ruy Hussein MD Head CT 02/23/17 0000 Signed Impressions: Service Date/Time: Thursday, February 23, 2017 07:38 - CONCLUSION: No significant change has occurred. Maximus Pavon MD Objective Remarks GENERAL: male, lying in bed, eyes open but sedated and unresponsive; no obvious distress SKIN: Bilateral upper extremities with multiple well-healing scabs HEENT: ETT in place; OGT in place. Pupils grossly symmetrical; diameter ~2-3mm CARDIOVASCULAR: RRR without appreciable murmurs. grossly normal perfusion. No edema RESPIRATORY: normal rate; more clear breath sounds bilaterally, without wheezing GASTROINTESTINAL: Abdomen soft, non-tender, nondistended; + bowel sounds MUSCULOSKELETAL: No cyanosis or edema. NEURO: Awake, not alert. Not responsive to verbal commands. No obvious facial asymmetry. Peripheral motor/sensory function not assessed due to lack of responsiveness to questioning/command. (Anderson Matt MD R2) Date of Insertion: Feb 23, 2017 (Anderson Matt MD R2) A/P Assessment and Plan 57-year-old white male with past medical history of alcohol withdrawal presented to the ED with hypoglycemia and altered mental status; patient has had progressively worsening renal function and is currently being worked up for renal failure and continued altered mental status. Pt recently required intubation and sedation for respiratory distress and CT with opacification of the left lung concerning for left lung collapse in the context of mucus plugging , which was removed on 03/09. -Pt intubated and sedated on propofol/fentanyl as managed by career coach 03/10-03/12 - Pt having seizure-like activity - neuro consulted (Dr Kingston), stat Brain MRI w/o contrast, stat EEG, and Keppra 1g IV bolus, Lactate 1.9 today vs 1.5 yesterday. Repeat EEG still negative. 03/12 - Pt ex-tubated, had increasing O2 requirement, and was subsequently re- intubated. Discharge Planning Pending workup for declining renal function, AMS Discussing with case management regarding placement and establish guardianship. Possibly SNF (Anderson Matt MD R2) Attending Attestation Patient seen and examined. Case reviewed and discussed with the resident team. Agree with plan of care as discussed with me and documented in the resident note. failing extubation is a bad prognostic sign unfortunately (Betzaida Connolly MD) Problem List: (1) Altered mental status ICD Codes: R41.82 - Altered mental status, unspecified Status: Acute Plan: Patient awake with eyes open but not responsive to commands. -Neuro consulted- -Continue Keppra -OK to stop sedatives -EEG negative; jerking not suspected to be seizure activity -Treat agitation -CIWA tapered -Stopped Librium, stopped Ativan -Haldol 1mg PRN q8hrs for agitation/psychosis -Holding Seroquel 25 mg PO qhs due to being intubated/sedated. 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 -Continue supportive treatment -Recommend judicious benzodiazepine usage--benzos stopped -May benefit from some type of extended care facility -Occupational therapy recommended OT at rehabilitation (PT recommended OT) -ST consulted -regular and thin liquids per ST. patient is dependent with total help required. -Continue IVF while not having adequate intake -D5 1/2 NS at 40ml/hr -Seizure precautions Impression: AMS initially suspected secondary to alcoholism; persistent UDS positive for Benzos and Cocaine Brain MRI on 02/25- atrophy, periventricular changes without evidence for acute infarction Head CT on admission- no significant change EEG 03/12- diffuse slowing with medication effect and diffuse encephalopathy without focal abnormalities. No seizure activity; jerking episodes witnessed w/ o seizure activity Ammonia 20, RPR nonreactive CMP on admission with mild hyponatremia (134), transaminase elevations, calcium of 8.1 Hep panel pending Thiamine level high at 325 (2) Respiratory disease ICD Codes: J98.9 - Respiratory disorder, unspecified Plan: Impression: Progressive worsening of respiratory status 03/09 requiring move to ICU and intubation/sedation and bronchial lavage to remove mucous plugs from both left and right mainstem bronchi. CXR 03/10 with persistent L basilar consolidation/effusion. Improving aeration in right base. Stable position of life support tubes Bronchial washing cultures: Fungal culture with yeast AFB negative; culture pending Bronchial bacterial culture with light growth of normal ariela -Continue CPAP, O2 per CC/respiratory therapy (3) PNA (pneumonia) ICD Codes: J18.9 - Pneumonia, unspecified organism Status: Acute Plan: -Was treated with antibiotic therapy from 03/02 - 03/07 for 5-6 days to treat pneumonia; repeat broader spectrum abx since 03/09 to present: -Azithromycin 500mg IV daily -Cefepime 2g IV daily renally dosed -Flagyl 500 mg IV daily renally dosed -s/p Solumedrol 40mg IV BID -Continue Duonebs q4h -Continue O2 as needed Impression: Patient with symptoms of cough and intermittent hypoxia to low 90' s requiring O2 supplementation; worsening of respiratory disease 03/09 with subsequent intubation and bronchoscopy w/ washing. CXR 03/02 with increasing consolidative changes in the left base. CXR 03/10 with persistent L basilar consolidation/effusion. Improving aeration in right base. Stable position of life support tubes Initial blood cultures + for staph hominis; subsequently negative 02/26, 03/02 Sputum cultures not obtained Urine Legionella, strep pneumo negative (4) SAQIB (acute kidney injury) ICD Codes: N17.9 - Acute kidney failure, unspecified Status: Acute Plan: Cr downtrending since 03/13. -Nephrology consulted: Diagnosed with Acute renal failure acute tubular necrosis with drug use, Non oliguric, creatinine is slightly worse. -Changed IVF to D51/2NS, reduced the rate to 40 ml/hour. -Monitor BMP -CT abdomen/pelvis- No hydronephrosis. Subtle high density stranding medial/ upper right kidney. Abnormal mass arising from/abutting spleen LUQ measuring up to 7.5 cm with small amount of calcification. Discussed with radiologist. Likely from previous trauma. No further workup indicated. Impression: Patient with SAQIB. Creatinine trended: 0.86 on admission Suspect intrinsic cause as Cr elevation refractory to fluid supplementation, BUN /Cr ratio <20/1, and catheterized Previously on Vancomycin-> discontinued Renal US 02/27 with mild L hydronephrosis; normal kidneys No urine eosinophils Urine random Cr 41.6 Urine random sodium 97 (5) Hypertension ICD Codes: I10 - Essential (primary) hypertension Status: Resolved Plan: 03/12- Patient has recently been hypotensive with MAP's in upper 60's -Continue Amlodipine 10mg PO daily -Will hold Hydralazine 25 mg q12h since hypotensive -Metoprolol 100 mg q12h -Clonidine 0.1mg TID -Clonidine 0.1 mg q6h PRN For SBP >/= 180, DBP >/= 100 (6) FEN Status: Acute Plan: Fluids: gentle IVF with D5W 1/2 NS @ 40 ml/hr Electrolytes: Monitor and replace as needed Nutrition: Tube feeds GI PPx: Lansoprazole 30 mg NG/day VTE prophylaxis: Heparin 5000 units every 12 hours (Anderson Matt MD R2) Problem Qualifiers (1) Altered mental status: Qualified Codes: R41.0 - Disorientation, unspecified (2) PNA (pneumonia): Qualified Codes: J18.9 - Pneumonia, unspecified organism (3) Hypertension: Qualified Codes: I10 - Essential (primary) hypertension Anderson Matt MD R2 Mar 13, 2017 11:03 Betzaida Connolly MD Mar 16, 2017 15:51
--- NOTE | 2017-03-13 12:11 | HHI.NPPN ---
Subjective History of Present Illness 57-year-old male with the alcohol withdrawal, altered mental status, acute renal failure Additional Remarks reintubated Objective Data Data 03/13/17 03/14/17 18:59 06:59 Intake Total 250 ml Balance 250 ml IV Total 250 ml Vital Signs Date Time Temp Pulse Resp B/P (MAP) Pulse Ox O2 Delivery O2 Flow Rate FiO2 03/13/17 11:21 100 40 03/13/17 10:00 87 03/13/17 08:00 97.9 107 20 117/87 (97) 100 03/13/17 08:00 107 03/13/17 07:55 100 40 03/13/17 07:00 100 Mechanical Ventilator 50 03/13/17 06:00 86 03/13/17 04:00 88 03/13/17 04:00 98.5 88 24 85/60 (68) 100 03/13/17 03:57 100 50 03/13/17 02:00 92 03/13/17 00:00 90 03/13/17 00:00 98.2 90 21 99/70 (80) 100 03/12/17 23:59 100 90 03/12/17 22:00 85 03/12/17 20:28 94 100 03/12/17 20:00 86 Mechanical Ventilator 100 03/12/17 20:00 98.5 78 18 102/71 (81) 86 03/12/17 20:00 78 03/12/17 18:00 84 03/12/17 18:00 87 Nasal Cannula 5.00 03/12/17 16:00 98.4 84 15 104/67 (79) 95 03/12/17 16:00 84 03/12/17 14:00 104 03/12/17 13:45 93 Nasal Cannula 5.00 03/12/17 13:45 93 Nasal Cannula 5 03/12/17 13:45 93 Nasal Cannula 5.00 -: 03/12/17 0523 03/13/17 0501 Physical Exam General Appearance: Malnourished Eyes Eye Exam: Pupils Equal Neck Neck Exam: Neck Supple Pulmonary Resp Exam: Crackles, Rhonchi, Diminished Breath Sounds Cardiology CV Exam: Regular, Normal Sinus Rhythm Gastrointestinal/Abdomen GI Exam: Soft, Non-Tender, Bowel Sounds Present Musculoskeletal MS Exam: Unable to Ambulate MS Remarks left shoulder sub laxation ? dislocated Extremeties Extremities Exam: No Edema Assessment/Plan Problem List: (1) SAQIB (acute kidney injury) ICD Codes: N17.9 - Acute kidney failure, unspecified Status: Acute Plan: Acute renal failure acute tubular necrosis with drug use Non oliguric, creatinine is stable at 2.88 Hepatitis C positive Ammonia not high s/p bronchoscopy with removal of mucous plug self extubated FU FIDEL TB test Monitor BMP CT scan abdominal reviewed Subtle high density stranding medial/upper right kidney. Abnormal mass arising from/abutting spleen LUQ measuring up to 7.5 cm with small amount of calcification (2) Alcohol withdrawal ICD Codes: F10.239 - Alcohol dependence with withdrawal, unspecified Status: Chronic Plan: Patient remained in altered mental status (3) Hypertension ICD Codes: I10 - Essential (primary) hypertension Status: Resolved Plan: Patient's blood pressure was labile continue to monitor Problem Qualifiers (1) Alcohol withdrawal: Qualified Codes: F10.231 - Alcohol dependence with withdrawal delirium (2) Hypertension: Qualified Codes: I10 - Essential (primary) hypertension Daryl Martinez MD Mar 13, 2017 12:11
--- NOTE | 2017-03-13 12:56 | HHI.HCPN ---
Reason for visit a. To assist with evaluation and management of symptoms including: Shortness of breath, debility b. To assist medical decision maker(s) with: better understanding of current medical conditions; weighing benefits/burdens of medical treatment options; making medical treatment decisions. Subjective/Interval History Mr. Cuevas is a 57 years old male with a medical history significant for EtOH use and abuse, tobacco use and abuse and depression. Patient was brought to [facility] ED on 02/23/17 via [place] the 40s. Patient was admitted for management of altered mental status associated with withdrawal delirium tremens and cellulitis to right upper extremity. Clinical course complicated by acute kidney failure, persistent altered mental status and respiratory failure requiring intubation and mechanical ventilation. Palliative care consulted for further clarifications of goals of care. Patient seen in ICU, lying in bed orally intubated and sedated. FIO2 40%. O2 saturation high 90s. Patient was medically extubated yesterday 03/12/17, he was not following commands. Patient failed extubation, requiring subsequent reintubation secondary to acute respiratory failure. Laboratory work Today revealing sodium 140, potassium 4.5, BUN/creatinine 33/2.88. Ammonia 19. Albumin 2.5. Patient remains afebrile, stable hemodynamically. Patient remains sedated on propofol. No signs of discomfort noted. Case discussed with Dr. Morales. Ongoing attempts at contacting next of kin. See palliative care social group worker Anna Quach notes. . Family/friend interactions No family at bedside. Attempted to contact pt's family members as follow. -Zachary Cuevas -listed as mother. --. -Vito Cuevas -listed as mother? . Telephone call, no answer. Unable to leave message. -Meenu Cuevas -listed as spouse . Telephone call, no answer. Unable to leave message. -? Patient reported being a . -Ed Slatter -listed as family/other . - -wrong number -Ed Faith -listed as brother -wrong number Pending [employer] reports from additional family members. . Advance Directives Advance Directive Specifics Health Care Surrogate(s): Unknown at this time if advance directives has been completed, no records in file. Palliative care has been unable to locate any family member at this time. . Significant change in goals: Full code, aggressive care by default at this time. . Objective Vital Signs Date Time Temp Pulse Resp B/P (MAP) Pulse Ox O2 Delivery O2 Flow Rate FiO2 03/13/17 12:00 98.3 91 18 114/69 (84) 100 03/13/17 12:00 91 03/13/17 11:21 100 40 03/13/17 10:00 87 03/13/17 08:00 97.9 107 20 117/87 (97) 100 03/13/17 08:00 107 03/13/17 07:55 100 40 03/13/17 07:00 100 Mechanical Ventilator 50 03/13/17 06:00 86 03/13/17 04:00 88 03/13/17 04:00 98.5 88 24 85/60 (68) 100 03/13/17 03:57 100 50 03/13/17 02:00 92 03/13/17 00:00 90 03/13/17 00:00 98.2 90 21 99/70 (80) 100 03/12/17 23:59 100 90 03/12/17 22:00 85 03/12/17 20:28 94 100 03/12/17 20:00 86 Mechanical Ventilator 100 03/12/17 20:00 98.5 78 18 102/71 (81) 86 03/12/17 20:00 78 03/12/17 18:00 84 03/12/17 18:00 87 Nasal Cannula 5.00 03/12/17 16:00 98.4 84 15 104/67 (79) 95 03/12/17 16:00 84 03/12/17 14:00 104 03/12/17 13:45 93 Nasal Cannula 5.00 03/12/17 13:45 93 Nasal Cannula 5 03/12/17 13:45 93 Nasal Cannula 5.00 Intake & Output 03/13/17 03/13/17 07:00 19:00 Intake Total 352 ml 450 ml Output Total 900 ml Balance -548 ml 450 ml IV Total 322 ml 450 ml Other 30 ml Output Urine Total 900 ml # Bowel Movements 1 Physical Exam CONSTITUTIONAL/GENERAL: This is an ill looking male who looks older than stated age, orally intubated and sedated. TUBES/LINES/DRAINS: ETT, OG, PIVs, Hall catheter, SCDs, bilateral soft wrist restraints. SKIN: Rash/ecchymosis to RUE. Scattered ecchymoses on upper extremities. Open areas/scabs to right upper extremity. Edema to right upper extremity. Skin temperature appropriate. Not diaphoretic. HEAD: Atraumatic. Normocephalic. EYES: Pupils equal and round and reactive. No scleral icterus. No injection or drainage. Fundi not examined. ENT: Nose without bleeding or purulent drainage. Moist oral mucosa. Orally intubated. Copious amounts of clear oral secretions noted. NECK: Trachea midline. Supple, nontender. CARDIOVASCULAR: Regular rate- sinus bradycardic and rhythm without murmurs, gallops, or rubs. No JVD. Peripheral pulses symmetric. RESPIRATORY/CHEST: Symmetric, unlabored respirations. Clear to auscultation. GASTROINTESTINAL: Abdomen soft, non-tender, nondistended. Bowel sounds present. GENITOURINARY: Without palpable bladder distension. Hall catheter in place with moderate amount of straw colored urine. MUSCULOSKELETAL: Extremities without clubbing, cyanosis. Edema to right forearm. . No mottling or clubbing. NEUROLOGICAL: Patient orally intubated on mechanical ventilation and sedated. Not following any commands. PSYCHIATRIC: Unable to assess at this time due to clinical condition. Appears calm. . Diagnostic Tests Laboratory Laboratory Tests Test 03/10/17 14:18 03/11/17 04:45 03/11/17 09:49 03/11/17 11:24 Blood Urea Nitrogen 33 MG/DL (7-18) 33 MG/DL (7-18) Creatinine 2.96 MG/DL (0.60-1.30) 3.06 MG/DL (0.60-1.30) Random Glucose 91 MG/DL (74-106) 92 MG/DL (74-106) Calcium Level 8.0 MG/DL (8.5-10.1) 8.3 MG/DL (8.5-10.1) Sodium Level 140 MEQ/L (136-145) 138 MEQ/L (136-145) Potassium Level 3.7 MEQ/L (3.5-5.1) 4.7 MEQ/L (3.5-5.1) Chloride Level 102 MEQ/L (98-107) 101 MEQ/L (98-107) Carbon Dioxide Level 31.0 MEQ/L (21.0-32.0) 29.2 MEQ/L (21.0-32.0) Anion Gap 7 MEQ/L (5-15) 8 MEQ/L (5-15) Estimat Glomerular Filtration Rate 22 ML/MIN (>89) 21 ML/MIN (>89) White Blood Count 9.8 TH/MM3 (4.0-11.0) Red Blood Count 3.47 MIL/MM3 (4.50-5.90) Hemoglobin 11.8 GM/DL (13.0-17.0) Hematocrit 36.2 % (39.0-51.0) Mean Corpuscular Volume 104.6 FL (80.0-100.0) Mean Corpuscular Hemoglobin 34.2 PG (27.0-34.0) Mean Corpuscular Hemoglobin Concent 32.7 % (32.0-36.0) Red Cell Distribution Width 14.2 % (11.6-17.2) Platelet Count 115 TH/MM3 (150-450) Mean Platelet Volume 10.8 FL (7.0-11.0) Neutrophils (%) (Auto) 64.9 % (16.0-70.0) Lymphocytes (%) (Auto) 19.3 % (9.0-44.0) Monocytes (%) (Auto) 12.2 % (0.0-8.0) Eosinophils (%) (Auto) 3.0 % (0.0-4.0) Basophils (%) (Auto) 0.6 % (0.0-2.0) Neutrophils # (Auto) 6.3 TH/MM3 (1.8-7.7) Lymphocytes # (Auto) 1.9 TH/MM3 (1.0-4.8) Monocytes # (Auto) 1.2 TH/MM3 (0-0.9) Eosinophils # (Auto) 0.3 TH/MM3 (0-0.4) Basophils # (Auto) 0.1 TH/MM3 (0-0.2) CBC Comment DIFF FINAL Differential Comment Hematology Comments Total Protein 6.5 GM/DL (6.4-8.2) Albumin 2.3 GM/DL (3.4-5.0) Alkaline Phosphatase 83 U/L (45-117) Aspartate Amino Transf (AST/SGOT) 101 U/L (15-37) Alanine Aminotransferase (ALT/SGPT) 74 U/L (12-78) Total Bilirubin 0.7 MG/DL (0.2-1.0) Blood Gas Puncture Site RT RADIAL Blood Gas Patient Temperature 98.6 Blood Gas HCO3 31 mmol/L (22-26) Blood Gas Base Excess 5.7 mmol/L (-2-2) Blood Gas Oxygen Saturation 91 % (90-100) Arterial Blood pH 7.38 (7.380-7.420) Arterial Blood Partial Pressure CO2 54 mmHg (38-42) Arterial Blood Partial Pressure O2 69 mmHg (61-120) Arterial Blood Oxygen Content 13.2 Vol % (12.0-20.0) Arterial Blood Carboxyhemoglobin 1.7 % (0-4) Arterial Blood Methemoglobin 0.7 % (0-2) Blood Gas Hemoglobin 10.2 G/DL (12.0-16.0) Oxygen Delivery Device VENTILATOR Blood Gas Ventilator Setting 500/12/+5/1.0 Blood Gas Inspired Oxygen 30 % Erythrocyte Sedimentation Rate 33 mm/hr (0-20) Total Creatine Kinase 24 U/L (39-308) Vitamin B12 Level 602 PG/ML (193-986) Folate 10.9 NG/ML (3.1-17.5) Anti-Nuclear Antibody Screen POS (NEG) Rapid Plasma Reagin NON-REACTIVE (NON-REACTVE) Test 03/12/17 05:23 03/12/17 20:00 03/13/17 05:01 White Blood Count 10.2 TH/MM3 (4.0-11.0) Red Blood Count 3.30 MIL/MM3 (4.50-5.90) Hemoglobin 11.3 GM/DL (13.0-17.0) Hematocrit 34.1 % (39.0-51.0) Mean Corpuscular Volume 103.4 FL (80.0-100.0) Mean Corpuscular Hemoglobin 34.3 PG (27.0-34.0) Mean Corpuscular Hemoglobin Concent 33.2 % (32.0-36.0) Red Cell Distribution Width 14.1 % (11.6-17.2) Platelet Count 100 TH/MM3 (150-450) Mean Platelet Volume 10.6 FL (7.0-11.0) CBC Comment AUTO DIFF Differential Total Cells Counted 100 Neutrophils % (Manual) 52 % (16-70) Band Neutrophils % 1 % (0-6) Lymphocytes % 28 % (9-44) Monocytes % 15 % (0-8) Eosinophils % 2 % (0-4) Basophils % 2 % (0-2) Neutrophils # (Manual) 5.4 TH/MM3 (1.8-7.7) Differential Comment FINAL DIFF MANUAL Platelet Estimate LOW (NORMAL) Platelet Morphology Comment NORMAL (NORMAL) Target Cells 1+ (NORMAL) Blood Urea Nitrogen 31 MG/DL (7-18) 33 MG/DL (7-18) Creatinine 2.83 MG/DL (0.60-1.30) 2.88 MG/DL (0.60-1.30) Random Glucose 91 MG/DL (74-106) 75 MG/DL (74-106) Calcium Level 8.2 MG/DL (8.5-10.1) 8.6 MG/DL (8.5-10.1) Phosphorus Level 4.1 MG/DL (2.5-4.9) Magnesium Level 1.9 MG/DL (1.5-2.5) Sodium Level 139 MEQ/L (136-145) 140 MEQ/L (136-145) Potassium Level 4.1 MEQ/L (3.5-5.1) 4.5 MEQ/L (3.5-5.1) Chloride Level 102 MEQ/L (98-107) 102 MEQ/L (98-107) Carbon Dioxide Level 28.6 MEQ/L (21.0-32.0) 28.1 MEQ/L (21.0-32.0) Anion Gap 8 MEQ/L (5-15) 10 MEQ/L (5-15) Estimat Glomerular Filtration Rate 23 ML/MIN (>89) 23 ML/MIN (>89) Blood Gas Puncture Site RT RADIAL Blood Gas Patient Temperature 98.6 Blood Gas HCO3 27 mmol/L (22-26) Blood Gas Base Excess 2.0 mmol/L (-2-2) Blood Gas Oxygen Saturation 65 % (90-100) Arterial Blood pH 7.35 (7.380-7.420) Arterial Blood Partial Pressure CO2 50 mmHg (38-42) Arterial Blood Partial Pressure O2 37 mmHg (61-120) Arterial Blood Oxygen Content 10.3 Vol % (12.0-20.0) Arterial Blood Carboxyhemoglobin 1.3 % (0-4) Arterial Blood Methemoglobin 0.8 % (0-2) Blood Gas Hemoglobin 11.2 G/DL (12.0-16.0) Oxygen Delivery Device VENTILATOR Blood Gas Ventilator Setting SEE COMMENT Blood Gas Inspired Oxygen 100 % Total Protein 6.1 GM/DL (6.4-8.2) Albumin 2.5 GM/DL (3.4-5.0) Alkaline Phosphatase 82 U/L (45-117) Aspartate Amino Transf (AST/SGOT) 59 U/L (15-37) Alanine Aminotransferase (ALT/SGPT) 42 U/L (12-78) Total Bilirubin 0.9 MG/DL (0.2-1.0) Ammonia 19 MCMOL/L (11-32) Result Diagram: 03/12/17 0523 03/13/17 0501 Procedures * 03/12/17 -reintubated * 03/12/17 -medical extubated * 03/09/17 -endotracheal Intubation * 03/09/17 -Bronchoscopy . Assessment and Plan Disease Oriented Problem List: (1) Acute hypoxemic respiratory failure (2) Acute kidney injury (3) PNA (pneumonia) (4) Encephalopathy (5) Cellulitis (6) Protein-calorie malnutrition (7) Physical deconditioning Symptom Scale: (1) Shortness of breath 0-10 Scale: Unable to quantify Comment: Currently intubated on mechanical ventilation. Reintubated 03/12/17. (2) Anxiety 0-10 Scale: Unable to quantify (3) Debility 0-10 Scale: Unable to quantify Comment: Progressive given acute events and prolonged hospitalization. Pertinent Non-Medical Issues Psychosocial: Patient is homeless. Chronic alcohol abuse and polysubstance abuse. On an admission in April, patient stated that he grew up in [place], [place], highest level of education is high school. Patient has as per records. Patient's mother and father . Patient also reported that he had been incarcerated at least 50 times. Spiritual: Unknown. Legal: unknown if advance directives have been completed. Ethical issues impacting care: Patient currently unable to make any medical decisions for himself secondary to current clinical condition, intubated on mechanical ventilation, sedated. Ongoing attempts at contacting next of kin. Important Contacts Ongoing attempts at contacting next of kin. Please see palliative care social group worker note. . Prognosis Mr. Cuevas is a 57 years old male with a medical history significant for EtOH use and abuse, tobacco use and abuse and depression. Patient was brought to [facility] ED on 02/23/17 via [place] sugar [place] the 40s. Patient was admitted for management of altered mental status associated with withdrawal delirium tremens and cellulitis to right upper extremity. Clinical course complicated by persistent encephalopathy, acute kidney injury and respiratory failure required intubation and mechanical ventilation. Patient is at high risk for further complications, continue decline and . . Code Status: Full Code Plan * CODE STATUS: Full Code by default. * HEALTHCARE DECISION-MAKING: Patient is unable to make medical decisions at this time given clinical status -persistent encephalopathy, delirium, polysubstance abuse, no history of alcohol abuse. Patient now endotracheally intubated on mechanical ventilation, sedated. Unclear at this time if advance directives have been completed, no records in chart. Ongoing attempts at contacting next of kin. * GOALS OF CARE: 03/13/17 -Palliative care is unable at this time to address goals of care until medical proxy decision maker is in place. Goals of care aggressive at this time by default. Ongoing attempts at contacting next of kin , please see palliative care social group worker notes, pending [employer] report on possible additional family members. * SYMPTOMS:== Pain, multifactorial, secondary to endotracheal intubation, cellulitis to right arm, bedrest. Currently on Fentanyl gtt. patient appears comfortable. == Shortness of breath, secondary to acute respiratory failure. Currently intubated on mechanical ventilation. Reintubated 03/12/17. == Debility, secondary to acute illness and prolonged hospitalization. * Case discussed with Dr. Morales. * Palliative care will continue to follow up for further clarification of goals of care as patient's clinical course continues to evolve. . Time Spent Total Floor Time (mins): 33 (Total time to include review medical records, physical exam, attempts at contacting patient's family members -multiple telephone calls. Case discussed with Dr. Morales.) >50% Counseling/Coord of Care: Yes Attestation To help prompt me to consider important information that might be impacting today's encounter and assessment, information from prior notes written by myself or my colleagues may have been "brought forward" into today's note. My signature on this note, however, is an attestation that I personally performed the exam, history, and/or decision-making noted today, and, unless otherwise indicated, the interactions with patient, family, and staff as well as the review of records all occurred today. I also attest that the listed assessment and stated plan reflect my best clinical judgment today based on the combination of historical information, prior notes, and today's exam/ interactions. When time spent is documented, it refers only to time spent today by the signer, or if indicated, combined time spent today by collaborating physician/nurse practitioner. Gini Cummins Mar 13, 2017 12:56
--- NOTE | 2017-03-13 14:04 | RADRPT ---
EXAM DATE/TIME: 03/13/2017 13:04 [facility] COMPARISON: CHEST SINGLE AP, March 12, 2017, 19:45. INDICATIONS : Confirm NG tube placement. MEDICAL HISTORY : Hypertension. Renal failure. Myocardial infarction. SURGICAL HISTORY : Sternum surgery. ENCOUNTER: Subsequent ACUITY: 3 weeks PAIN SCORE: Non-responsive. LOCATION: Bilateral Abdomen. FINDINGS: There is a nasogastric tube present with the tip of the tube is just through the GE junction within t he stomach. There is bowel gas pattern is within normal limits. Note is made of small effusion and consolidation in the left lung base. The osseous structures are grossly intact. CONCLUSION: 1. The tip of the NG tube is just through the GE junction and into the stomach. Cliff Mack MD on March 13, 2017 at 14:02 Board Certified Radiologist. This report was verified electronically.
[2017-03-13 16:30] LABS: HEMATOCRIT 32.4 % (39.0-51.0); MEAN CELL VOLUME 103.1 FL (80.0-100.0); MEAN CORPUSCULAR HEMOGLOBIN 34.5 PG (27.0-34.0); MEAN CORPUSCULAR HGB CONC 33.4 % (32.0-36.0); PLATELET COUNT 142 TH/MM3 (150-450); RED BLOOD COUNT 3.15 MIL/MM3 (4.50-5.90); RED CELL DISTRIBUTION WIDTH 14.1 % (11.6-17.2); REVIEW FLAG FINAL; WHITE BLOOD COUNT 9.4 TH/MM3 (4.0-11.0)
[2017-03-14] VITALS (20 sets, daily range): BP systolic 105–137; BP diastolic 69–91; PULSE 64–114; RESP 18–25; TEMP 97.9–99.2; O2SAT 94–100
[2017-03-14] MEDS: RESP: SODIUM CHLORIDE 3% 4 ML NEB NEB SCH ×2 (00:32→04:23)
[2017-03-14] MEDS: PROPOFOL 1000 MG/100 ML INJ 100 ML IV PRN ×3 (01:12→22:39)
[2017-03-14] MEDS: metroNIDAZOLE 500 MG INJ 100 ML IV SCH ×3 (01:21→17:26)
[2017-03-14] MEDS: RESP: ALBUTEROL 2.5 MG/3 ML NEB (PRN) NEB ×2 (04:23→08:10)
[2017-03-14] MEDS: ARTIFICIAL TEARS OPTH SOLN 15 ML BTL EACH EYE SCH ×3 (05:13→22:00)
[2017-03-14 05:39] LABS: BICARBONATE 27.5 MEQ/L (21.0-32.0); POTASSIUM 3.2 MEQ/L (3.5-5.1)
[2017-03-14] MEDS: AZITHROMYCIN INJ 500 MG in SODIUM CHLOR 0.9% 250 ML INJ 250 ML IV SCH (08:07)
[2017-03-14] MEDS: MULTIVITAMIN TAB PO SCH (08:27)
[2017-03-14] MEDS: METOPROLOL TARTRATE 100 MG TAB PO SCH ×2 (08:27→20:14)
[2017-03-14] MEDS: chlordiazePOXIDE 25 MG CAP PO SCH ×2 (08:27→22:31)
[2017-03-14] MEDS: BENEPROTEIN POWDER 1 PACK G-TUBE SCH ×3 (08:27→17:26)
[2017-03-14] MEDS: cloNIDine HCL 0.1 MG TAB PO SCH ×3 (08:27→17:26)
[2017-03-14] MEDS: LANSOPRAZOLE SOLUTAB 30 MG TAB NG SCH (08:27)
[2017-03-14] MEDS: THIAMINE HCL 100 MG TAB PO SCH (08:27)
[2017-03-14] MEDS: SODIUM CHLORIDE 0.9% FLUSH 10 ML FLUSH IV FLUSH SCH ×2 (08:28→20:14)
[2017-03-14] MEDS: CHLORHEXIDINE 0.12% (ORAL KIT) 15 ML CUP MT SCH ×2 (08:28→20:10)
--- NOTE | 2017-03-14 09:15 | HHI.FPPN ---
Subjective Remarks Poor Mr Cuevas is not waking up well and failed his extubation. He still has occasional rhythmic movements of his arms and head that thankfully are not seizures. Unfortunately, he has no friend or relative who has come by the hospital or even answered a phone call except one friend who was here at the beginning of his hospitalization and has not been seen again. His eyes are a little dry today. he was placed back on some propofol because off all sedation he was "bucking the vent" plus making his rhythmic movements where he would lift his head off the bed and move his arms in a tremor like manner. A guardian has been applied for by case management or that is in process at this time. he does not exhibit any meaningful interaction with anyone. He does not respond to voice or light touch nor follow any commands. appreciate help of palliative who is contacting any family members they can. per their note, Mr Cuevas had alienated everyone by threatening to kill them and their families and/ or burn their houses down. Objective Vitals Vital Signs Date Time Temp Pulse Resp B/P (MAP) Pulse Ox O2 Delivery O2 Flow Rate FiO2 03/14/17 08:10 100 40 03/14/17 06:00 76 03/14/17 04:23 100 40 03/14/17 04:00 98.1 64 18 115/72 (86) 99 03/14/17 04:00 40 03/14/17 04:00 64 03/14/17 02:00 76 03/14/17 01:18 100 40 03/14/17 00:00 79 03/14/17 00:00 40 03/14/17 00:00 98.2 79 25 129/91 (104) 99 03/13/17 22:18 100 40 03/13/17 22:00 72 03/13/17 20:00 40 03/13/17 20:00 98.4 82 18 90/60 (70) 100 03/13/17 20:00 82 03/13/17 19:59 100 40 03/13/17 19:00 100 Mechanical Ventilator 40 03/13/17 18:00 82 03/13/17 16:00 98.2 82 18 93/56 (68) 100 03/13/17 16:00 82 03/13/17 15:42 100 40 03/13/17 14:00 106 03/13/17 12:00 98.3 91 18 114/69 (84) 100 03/13/17 12:00 91 03/13/17 11:21 100 40 03/13/17 10:00 87 I/O 03/13/17 03/13/17 03/13/17 03/14/17 03/14/17 03/14/17 07:00 15:00 23:00 07:00 15:00 23:00 Intake Total 252 ml 550 ml 663 ml 687 ml 250 ml Output Total 900 ml 800 ml 375 ml Balance -648 ml 550 ml -137 ml 312 ml 250 ml IV Total 222 ml 550 ml 100 ml 300 ml 250 ml Tube Feeding 113 ml 387 ml Other 30 ml 450 ml Output Urine Total 900 ml 800 ml 375 ml Bladder Scan Volume Amount 375 ml 230 ml # Bowel Movements 1 1 0 Result Diagram: 03/13/17 1535 03/14/17 0420 Objective Remarks GENERAL: male, lying in bed, eyes open but sedated and unresponsive; no obvious distress SKIN: Bilateral upper extremities with multiple well-healing scabs HEENT: ETT in place; OGT in place. Pupils grossly symmetrical; diameter ~2-3mm CARDIOVASCULAR: RRR without appreciable murmurs. grossly normal perfusion. No edema RESPIRATORY: normal rate; more clear breath sounds bilaterally, without wheezing GASTROINTESTINAL: Abdomen soft, non-tender, nondistended; + bowel sounds + condom cath MUSCULOSKELETAL: No cyanosis or edema. NEURO: Awake, not alert. Not responsive to verbal commands. No obvious facial asymmetry. Peripheral motor/sensory function not assessed due to lack of responsiveness to questioning/command.He does move his arms spontaneously but not purposefully. Urinary Catheter: No Date of Insertion: Feb 23, 2017 A/P Assessment and Plan 57-year-old white male with past medical history of alcohol withdrawal presented to the ED with severe hypoglycemia and altered mental status; patient has had progressively worsening renal function and is currently being followed for renal failure and continued altered mental status. Pt recently required intubation and sedation for respiratory distress and CT with opacification of the left lung concerning for left lung collapse in the context of mucus plugging , which was removed on 03/09. -Pt intubated and sedated on propofol/fentanyl as managed by blueprint blocker 03/10-03/12 - Pt having seizure-like activity - neuro consulted (Dr Kingston), stat Brain MRI w/o contrast, stat EEG, and Keppra 1g IV bolus, Lactate 1.9 today vs 1.5 yesterday. Repeat EEG still negative. Not having true seizures 03/12 - Pt ex-tubated, had increasing O2 requirement, and was subsequently re- intubated. Discharge Planning Pending workup for declining renal function, AMS Discussing with case management regarding placement and establish guardianship. Possibly SNF. Hope for some direction and guidance on his wishes from his family. appreciate help palliative Problem List: (1) Altered mental status ICD Codes: R41.82 - Altered mental status, unspecified Status: Acute Plan: Patient awake with eyes open but not responsive to commands. -Neuro consulted- -Continue Keppra -he requires minimal sedation as he moves erratically without it and fights his ventilator -EEG negative; jerking not suspected to be seizure activity -Treat agitation with minimal sedation -CIWA tapered -Stopped Librium, stopped Ativan -Haldol 1mg PRN q8hrs for agitation/psychosis -Holding Seroquel 25 mg PO qhs due to being intubated/sedated. 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 -Continue supportive treatment -Recommend judicious benzodiazepine usage initially now benzos stopped as he is done with alcohol withdrawal -May benefit from some type of extended care facility if he can improve enough for placement if he does well enough to be placed, will need to see if he can participate in PT/OT -ST consulted -regular and thin liquids per ST prior to his latest decline. he would need reevaluation if able to stay off his vent Impression: AMS initially suspected secondary to alcoholism and report glucose of 16!, persistent UDS positive for Benzos and Cocaine Brain MRI on 02/25- atrophy, periventricular changes without evidence for acute infarction Head CT on admission- no significant change EEG 03/12- diffuse slowing with medication effect and diffuse encephalopathy without focal abnormalities. No seizure activity; jerking episodes witnessed w/ o seizure activity Ammonia not extremely high, RPR nonreactive, FIDEL positive but titers pending Thiamine level high at 325 now but had severe hypoglycemia prior to admission reportedly for hours It is unclear at this point how much cognitive function he will be able to develop. He has never in this hospitalization had the capacity to make decisions for himself. Hope very much that some family member steps forward. (2) Respiratory disease ICD Codes: J98.9 - Respiratory disorder, unspecified Plan: Impression: Progressive worsening of respiratory status 03/09 requiring move to ICU and intubation/sedation and bronchial lavage to remove mucous plugs from both left and right mainstem bronchi. CXR 03/10 with persistent L basilar consolidation/effusion. Improving aeration in right base. Stable position of life support tubes 03/12 he was extubated and reintubated as he was unable to protect his airway Bronchial washing cultures: Fungal culture with yeast AFB negative; culture pending Bronchial bacterial culture with light growth of normal ariela -Continue CPAP as tolerated, O2 per CC/respiratory therapy. because he failed extubation, it is more difficult to get and keep him off a vent (3) PNA (pneumonia) ICD Codes: J18.9 - Pneumonia, unspecified organism Status: Acute Plan: -Was treated with antibiotic therapy from 03/02 - 03/07 for 5-6 days to treat pneumonia; repeat broader spectrum abx since 03/09 to present: -Azithromycin 500mg IV daily -Cefepime 2g IV daily renally dosed -Flagyl 500 mg IV daily renally dosed -s/p Solumedrol 40mg IV BID -Continue Duonebs q4h -Continue O2 as needed Impression: Patient with symptoms of cough and intermittent hypoxia to low 90' s requiring O2 supplementation; worsening of respiratory disease 03/09 with subsequent intubation and bronchoscopy w/ washing. CXR 03/02 with increasing consolidative changes in the left base. CXR 03/10 with persistent L basilar consolidation/effusion. Improving aeration in right base. Stable position of life support tubes Initial blood cultures + for staph hominis; subsequently negative 02/26, 03/02 Sputum cultures not obtained Urine Legionella, strep pneumo negative (4) SAQIB (acute kidney injury) ICD Codes: N17.9 - Acute kidney failure, unspecified Status: Acute Plan: Cr downtrending since 03/13. -Nephrology consulted: Diagnosed with Acute renal failure acute tubular necrosis with drug use, Non oliguric -Changed IVF to D51/2NS, reduced the rate to 40 ml/hour. -Monitor BMP -CT abdomen/pelvis- No hydronephrosis. Subtle high density stranding medial/ upper right kidney. Abnormal mass arising from/abutting spleen LUQ measuring up to 7.5 cm with small amount of calcification. Discussed with radiologist. Likely from previous trauma. No further workup indicated. Impression: Patient with SAQIB. Creatinine trended: 0.86 on admission Suspect intrinsic cause as Cr elevation refractory to fluid supplementation, BUN /Cr ratio <20/1, and catheterized Previously on Vancomycin-> discontinued Renal US 02/27 with mild L hydronephrosis; normal kidneys No urine eosinophils Urine random Cr 41.6 Urine random sodium 97 he is slowly improving with his renal fxn (5) Hypertension ICD Codes: I10 - Essential (primary) hypertension Status: Resolved Plan: 03/12- Patient has recently been hypotensive with MAP's in upper 60's -Continue Amlodipine 10mg PO daily -Will hold Hydralazine 25 mg q12h since hypotensive -Metoprolol 100 mg q12h, will decrease as he had some bradycardia overnight -Clonidine 0.1mg TID -Clonidine 0.1 mg q6h PRN For SBP >/= 180, DBP >/= 100 (6) FEN Status: Acute Plan: Fluids: gentle IVF with D5W 1/2 NS @ 40 ml/hr Electrolytes: Monitor and replace as needed Nutrition: Tube feeds GI PPx: Lansoprazole 30 mg NG/day VTE prophylaxis: Heparin 5000 units every 12 hours (7) Observed seizure-like activity ICD Codes: R56.9 - Unspecified convulsions Status: Resolved Plan: Impression: EEG 03/12 not suggestive of seizure activity MRI 03/10 without acute infarct or other acute intracranial abnormality. Atrophy and chronic white matter changes again noted ABG 03/11- pH 7.38, pCO2 54, pO2 69 Labs 03/11- ESR 33, B12 602, CK 24, RPR nonreactive, Cr 2.83, Ca 8.2, Na 139 unclear why he has these movements but suspect this may be due to his underlying brain dysfunction -Neurology consulted -Continue Keppra -OK to wean sedation Problem Qualifiers (1) Altered mental status: Qualified Codes: R41.0 - Disorientation, unspecified (2) PNA (pneumonia): Qualified Codes: J18.9 - Pneumonia, unspecified organism (3) Hypertension: Qualified Codes: I10 - Essential (primary) hypertension Betzaida Connolly MD Mar 14, 2017 09:15
[2017-03-14] MEDS: CEFEPIME INJ 2,000 MG in SODIUM CHLORIDE 0.9% INJ 100 ML IV SCH (09:41)
--- NOTE | 2017-03-14 10:18 | HHI.HCPN ---
[facility] results: Lay Darling: [phone], -- straight to VM- left message on both numbers requesting call back Hugo Darling (Lay ): [phone]--Was able to speak with Lay. Elvia/Yobany Darling (Lay's children?): #[phone] Lay is unsure if Mr. Cuevas ever had children. There was reportedly a son but "it was never confirmed by DNA". 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 Lay confirms parents are . Confirms there are multiple siblings. per [place] Statutes, medical decision making falls to majority of siblings as patient is not , no confirmed children, and both parents . Lay is currently reaching out to other siblings to see if they wish to participate in medical decision making. Informed her if they do not wish to participate they need to contact palliative SW. Otherwise, family meeting via conference will be set up. Awaiting call back from Lay with day/time for meeting to address goals of care. Lay reports Mr. Cuevas has estranged himself from family due to his behaviors. She reports he is very threatening towards family (threatens to kill them, their kids, burn their homes down). States he was the same way to their mother all his life. 11am-- recevied call from brother Vito Cuevas. Confirms desire to be involved in decision making. Also attempting to set up meeting with siblings. Will contact palliative care with day and time. 12pm- received call form sister Trixie Durand. Answered her questions to the best of my ability. Expressed concerns with patient being estranged and not knowing him well enough anymore to make decisions, reports she "didn't even know if he was already ". States she will contact her siblings. 140pm- received call from sister Trixie Durand. States she has spoken with her brother and sister, Lay and Vito, and none of them wish to serve as medical proxy decision maker. Informed her I would need to speak with Lay and Vito directly to hear they do not wish to serve. Inquired about any additional family. She confirms there is NO OTHER FAMILY. She inquires about "what happens next" regarding who would make decisions. Explained given there is no other family and none of the siblings wish to serve in this capacity, the hospital would get a marketing representative from [employer] to review his medical record, speak with the medical providers, and make educated decisions regarding what's in the patient's best interest given his medical condition, etc. Trixie Durand confirms she DOES NOT wish to participate in medical decision making. Currently awaiting to hear back from other siblings. May need [employer] if brother and other sister (lay) indeed do not wish to serve as health care proxy(ies). Important Contacts: Lay Darling (sister): [phone]- Hugo Phong (brother in law): [phone] Vito Faith (brother): [phone] Trixie Durand (sister): [phone]-- does not wish to participate in decision making. Damien Mackemili (half brother): Lay provided my contact information for him to contact palliative care regarding participate in decision making. Palliative care will continue to follow throughout hospitalization. Anna Quach, BUDGET TECHNICIAN Mar 14, 2017 10:18
--- NOTE | 2017-03-14 10:50 | HHI.NPPN ---
Subjective History of Present Illness 57-year-old male with the alcohol withdrawal, altered mental status, acute renal failure Additional Remarks reintubated Objective Data Data 03/14/17 03/15/17 19:00 07:00 Intake Total 350 ml Balance 350 ml IV Total 350 ml Vital Signs Date Time Temp Pulse Resp B/P (MAP) Pulse Ox O2 Delivery O2 Flow Rate FiO2 03/14/17 09:55 40 03/14/17 09:55 98 40 03/14/17 08:10 100 40 03/14/17 06:00 76 03/14/17 04:23 100 40 03/14/17 04:00 98.1 64 18 115/72 (86) 99 03/14/17 04:00 40 03/14/17 04:00 64 03/14/17 02:00 76 03/14/17 01:18 100 40 03/14/17 00:00 79 03/14/17 00:00 40 03/14/17 00:00 98.2 79 25 129/91 (104) 99 03/13/17 22:18 100 40 03/13/17 22:00 72 03/13/17 20:00 40 03/13/17 20:00 98.4 82 18 90/60 (70) 100 03/13/17 20:00 82 03/13/17 19:59 100 40 03/13/17 19:00 100 Mechanical Ventilator 40 03/13/17 18:00 82 03/13/17 16:00 98.2 82 18 93/56 (68) 100 03/13/17 16:00 82 03/13/17 15:42 100 40 03/13/17 14:00 106 03/13/17 12:00 98.3 91 18 114/69 (84) 100 03/13/17 12:00 91 03/13/17 11:21 100 40 -: 03/13/17 1535 03/14/17 0420 Physical Exam General Appearance: Malnourished Eyes Eye Exam: Pupils Equal Neck Neck Exam: Neck Supple Pulmonary Resp Exam: Crackles, Rhonchi, Diminished Breath Sounds Cardiology CV Exam: Regular, Normal Sinus Rhythm Gastrointestinal/Abdomen GI Exam: Soft, Non-Tender, Bowel Sounds Present Musculoskeletal MS Exam: Unable to Ambulate MS Remarks left shoulder sub laxation ? dislocated Extremeties Extremities Exam: No Edema Assessment/Plan Problem List: (1) SAQIB (acute kidney injury) ICD Codes: N17.9 - Acute kidney failure, unspecified Status: Acute Plan: Acute renal failure acute tubular necrosis with drug use Non oliguric, creatinine is stable at 2.67 replace K Hepatitis C positive Ammonia not high s/p bronchoscopy with removal of mucous plug self extubated FU FIDEL TB test Monitor BMP CT scan abdominal reviewed Subtle high density stranding medial/upper right kidney. Abnormal mass arising from/abutting spleen LUQ measuring up to 7.5 cm with small amount of calcification (2) Alcohol withdrawal ICD Codes: F10.239 - Alcohol dependence with withdrawal, unspecified Status: Chronic Plan: Patient remained in altered mental status (3) Hypertension ICD Codes: I10 - Essential (primary) hypertension Status: Resolved Plan: Patient's blood pressure was labile continue to monitor Problem Qualifiers (1) Alcohol withdrawal: Qualified Codes: F10.231 - Alcohol dependence with withdrawal delirium (2) Hypertension: Qualified Codes: I10 - Essential (primary) hypertension Daryl Martinez MD Mar 14, 2017 10:50
--- NOTE | 2017-03-14 10:52 | HHI.CCPN ---
Subjective Remarks/Hospital Course This is a 57-year-old male that was found down and admitted to this hospital 02/23/2017. Urine tox screen revealed patient was positive for benzodiazepines and cocaine at that time. Since admission the patient has been on a [facility] protocol, neurology has been consulted Dr. Wayne, with continued supportive care. Over the last 48 hours the patient was noted to have elevation in his creatinine with a significant decrease in urine output acute renal failure nephrology was consulted the patient continues on gentle diuresis and received 80 mg of Lasix IV this afternoon and is currently on sodium bicarbonate infusion at 110 cc/an hour. Due to the patient's respiratory insufficiency, and altered mental status concern for possible continued respiratory decompensation the patient was transferred to the ICU, and critical care was consulted for management. Upon entering the patient's room the patient was noted to be lethargic having received 4 mg of Ativan in the last 4 hours, but opens eyes to sternal rub. The patient was noted to have O2 saturation of 95% on O2 via nasal cannula at 5 L with no accessory respiratory efforts. Stat ABG was ordered pending, to rule out CO2 narcosis. Since admission to ICU the patient was noted to diuresis of 700 cc. 03/03: Afebrile. The patient did not receive any Ativan since 3 PM on 03/02/17. The patient rested well overnight, eventually waking and responding. This a.m. the patient's noted to be sitting up in bed, alert and responsive. Librium has been added to medication regimen for alcohol withdrawal. Noted to be oriented to date of unable to provide name or place at this time. Essential tremors, fine tremors noted. The patient severely weak and unable to feed self without assistance. The patient's diet was advanced to regular diet, tolerating well, 100% consumption. PO meds were held since admission to ICU secondary to lethargy, all by mouth meds resumed this a.m.. The patient currently is compliant following commands, inappropriate responses, with noted incomprehensible words, language at times. Patient is noted to be very weak. Nasal cannula O2 has been weaned down to approximately 3 L, the patient appears in no respiratory distress. Subjective: 03/09: Reconsulted secondary acute respiratory failure. Chest x-ray earlier in the morning revealed collapse versus large pleural effusion left side. Patient oxygen requirements had increased from 4 L to a nonrebreather mask. CT thorax revealed likely mucous plugging/collapsed lung left side. Small to moderate left pleural effusion. Patient was combative upon arrival ICU in place in soft restraints. Due to mental status/mucous plugging patient was electively intubated using 20 mg etomidate and 50 mg, rocuronium. Patient was bronched which revealed thick white mucous plugging in the left and right mainstem. These were lavaged to left upper lobe/lingula and left lower lobe, right upper middle and lower lobes. Samples were sent see orders. Currently sedated with propofol and fentanyl drips. 03/10: Tonic seizures today when propofol stopped. Seizures ceased with propofol bolus. Left pneumonia persists but improved aeration after bronch . 03/11: Gas exchange acceptable. Continues to have tonic "seizures" when propofol is lightened. EEG 03/10 states no seizures but we will repeat EEG again today with stimulation and off propofol. Can't extubate until this "seizure" activity is resolved. Vomited tube feeds, will reduce and add reglan. 03/12: Off sedation tolerating CPAP even though intermittently apneic. Appears to follows commands but weekly on the upper extremity. No obvious seizures. EEG negative for seizure 03/11/17. Creatinine slightly improved to 2.8 from 3 03/13: Failed extubation on 03/12. Currently sedated, orally intubated on mechanical ventilation. Has thick copious respiratory secretions per [employer]. 03/14: Remains sedated, orally intubated on mechanical ventilation. Feeling C Pap trials. Not following commands on lightening sedation. Objective Vital Signs Date Time Temp Pulse Resp B/P (MAP) Pulse Ox O2 Delivery O2 Flow Rate FiO2 03/14/17 09:55 40 03/14/17 09:55 98 03/14/17 06:00 76 03/14/17 04:00 98.1 18 115/72 (86) 03/13/17 19:00 Mechanical Ventilator 03/12/17 18:00 5.00 Intake and Output 03/14/17 03/14/17 03/15/17 08:00 16:00 00:00 Intake Total 687 ml 250 ml Output Total 375 ml Balance 312 ml 250 ml Result Diagram: 03/13/17 1535 03/14/17 0420 Imaging Last Impressions Shoulder X-Ray 03/05/17 0000 Signed Impressions: Service Date/Time: Sunday, March 05, 2017 20:57 - CONCLUSION: No acute disease. Rick Sanford MD Abdomen/Pelvis CT 03/04/17 0000 Signed Impressions: Service Date/Time: Saturday, March 04, 2017 10:31 - CONCLUSION: 1. There is no hydronephrosis or renal abnormality to explain the renal failure. However, there is subtle high density stranding along the medial and upper pole of the right kidney. Suggest followup CT to assess for change. 2. Abnormal mass arising from or abutting the spleen in the left upper quadrant measuring up to 7.5 cm. It contains a small amount of calcification. Suggest correlating with any prior imaging study that could offer additional characterization. If none are available suggest followup imaging to confirm stability and consider contrast enhanced CT or MRI for further characterization when patient condition permits. 3. Small bilateral pleural effusions, left larger than right, with associated compressive atelectasis. 4. Severe coronary artery calcification. Kilo Coulter MD Chest X-Ray 03/02/17 0000 Signed Impressions: Service Date/Time: Thursday, March 02, 2017 08:18 - CONCLUSION: Increasing consolidative changes left base. Nasir Mack MD FACR Renal Ultrasound 02/27/17 0000 Signed Impressions: Service Date/Time: Monday, February 27, 2017 20:36 - CONCLUSION: 1. Mildly dilated left renal collecting system. Kidneys normal in size. Trace free fluid. Ruy Hussein MD Brain MRI 02/25/17 0000 Signed Impressions: Service Date/Time: Saturday, February 25, 2017 12:37 - CONCLUSION: Atrophy, periventricular changes without evidence for acute infarction. Nasir Mack MD FACR Head CT 02/23/17 0000 Signed Impressions: Service Date/Time: Thursday, February 23, 2017 07:38 - CONCLUSION: No significant change has occurred. Maximus Pavon MD Objective Remarks GENERAL: 57-year-old male, Awake on vent, encephalopathy SKIN: Warm and dry. Clean gauze dressing right forearm HEAD: Atraumatic. Normocephalic. EYES: Pupils equal and round around 2 mm bilaterally and reactive. No scleral icterus. No injection or drainage. ENT: No nasal bleeding or discharge. Mucous membranes pink and moist. NECK: Trachea midline. Orally intubated. CARDIOVASCULAR: RRR. S1, S2 no S4. Without murmur. No JVD. RESPIRATORY: Orally intubated on mechanical ventilation, Diminished breath sounds left lung thomas. No wheezing GASTROINTESTINAL: Abdomen soft, non-tender, nondistended. Active bowel sounds appreciated MUSCULOSKELETAL: Extremities without without significant peripheral edema. No obvious deformities. Right forearm dressing, noted cellulitis NEUROLOGICAL: Eyes are open spontaneously follows commands intermittently in the upper extremity. Moving all 4 extremities equally. Date of Insertion: Feb 23, 2017 A/P Assessment and Plan Neuro/Psych: Admission with EtOH withdrawal - likely completed Polysubstance abuse including cocaine and benzodiazepines Acute delirium/multifactorial likely toxic metabolic secondary to hypoxia Polyneuropathy of critical illness Patient is currently on propofol/fentanyl drips for sedation/analgesia while intubated. Hold all sedation for possible extubation Goal of RASS -0 Patient is followed by Dr. Wayne/neurology. EEG's reveal moderate encephalopathy no epileptiform activity Previous on Seroquel 25 mg at night and Haldol when necessary Librium decreased from 50mg BID to 25 mg twice a day on 03/12 Seizure precautions Seizures 03/10, recur when propofol off. Continue thiamine 100 mg daily Psychiatry consulted-complete evaluation to determine adequacy for self-care Respiratory: Acute hypoxemic respiratory failure secondary to aspiration PRVC 16/500/06/29/39. CPAP trial with possible extubation Ventilator bundle. Albuterol/ipratropium aerosols every 4 hours with albuterol aerosols every 2 hours. Dyspnea hypertonic saline aerosols every 4 hours 5 days to thin secretions Follow-up chest x-ray. CT thorax from 03/09 revealed collapse left upper/lingula lobes with significant secretions left main bronchus. Improved aeration 03/10 Cardiovascular: Hypertension Currently on amlodipine 10 mg daily, clonidine 0.1 mg 3 times a day and metoprolol 5 mg by mouth twice a day for hypertension Maintain MAP > 65 mmHG Renal: Acute kidney injury secondary to ATN Nephrology following Dr. Martinez. Accurate I's and O's Monitor urine output No signs of hydronephrosis on renal imaging Urine eosinophils negative FEN/GI: Mild protein calorie malnutrition Hyperkalemia Hep C AB + Continue tube feeds and advanced to goal as tolerated Lansoprazole for GI prophylaxis Docusate sodium senna 1 tablet twice a day for bowel regimen Heme/ID: Macro Anemia Thrombocytopenia Pneumonia Patiently pancultured including bronchoscopy washings, UA. Blood cultures 2 performed Currently on cefepime, Flagyl and azithromycin renally dosed since 03/09/17 Endocrine: Sliding-scale insulin to maintain euglycemia/low regimen with NovoLog every 6 hours Prophylaxis: GI Prophylaxis Lansoprazole DVT Prophylaxis -- SCDs/heparin subcutaneous Lines: Peripheral IVs providing adequate access at this time. Palliative care team following to assist with deciding goals of therapy. Overall impression: Critically ill with new onset recurrent seizures and hypoxemic respiratory failure. Left lung more well aerated after bronchoscopy. Failed extubation on 03/12 and required reintubation. Level 3 Kevon Morales MD Mar 14, 2017 10:52
[2017-03-14] MEDS ORDERED: POTASSIUM CHLOR 20 MEQ PREMIX 100 ML IV ONE (11:00)
[2017-03-14] MEDS: HEPARIN SODIUM - SQ 10,000 UNITS/ML VIAL SQ SCH ×2 (11:39→22:31)
--- NOTE | 2017-03-14 11:48 | HHI.HCPN ---
Reason for visit a. To assist with evaluation and management of symptoms including: Shortness of breath, debility b. To assist medical decision maker(s) with: better understanding of current medical conditions; weighing benefits/burdens of medical treatment options; making medical treatment decisions. Subjective/Interval History Mr. Cuevas is a 57 years old male with a medical history significant for EtOH use and abuse, tobacco use and abuse and depression. Patient was brought to [facility] ED on 02/23/17 via EMS [place] sugar in the 40s. Patient was admitted for management of altered mental status associated with withdrawal delirium tremens and cellulitis to right upper extremity. Clinical course complicated by acute kidney failure, persistent altered mental status and respiratory failure requiring intubation and mechanical ventilation. Palliative care consulted for further clarifications of goals of care. Patient seen in ICU, lying in bed orally intubated and sedated. FIO2 40%, O2 saturation high 90s -Patient reintubated 03/12/17. Patient with eyes opening, intermittently tracking. Not following any commands or attempting to communicate. Ongoing CPAP trials during my visit, Patient off sedation. Patient remains afebrile, stable hemodynamically. Laboratory workup today revealing sodium 139, potassium 3.2, BUN/creatinine 34/2.67. No new imaging for review. Case discussed with Dr. Morales. Ongoing attempts at contacting next of kin. See palliative care child welfare social worker Anna Quach notes. . Family/friend interactions Palliative care child welfare social worker contacted patient's sister Lore Darling. Additional siblings reported. Sr. Lore to reach palliative care with additional siblings information and schedule family meeting via conference call for goals of care discussion. Palliative care to follow-up. . Advance Directives Advance Directive Specifics Health Care Surrogate(s): Unknown at this time if advance directives has been completed, no records in file. Palliative care has been unable to locate any family member at this time. . Significant change in goals: Pending next of kin information for goals of care discussion. . Objective Vital Signs Date Time Temp Pulse Resp B/P (MAP) Pulse Ox O2 Delivery O2 Flow Rate FiO2 03/14/17 09:55 40 03/14/17 09:55 98 40 03/14/17 08:10 100 40 03/14/17 06:00 76 03/14/17 04:23 100 40 03/14/17 04:00 98.1 64 18 115/72 (86) 99 03/14/17 04:00 40 03/14/17 04:00 64 03/14/17 02:00 76 03/14/17 01:18 100 40 03/14/17 00:00 79 03/14/17 00:00 40 03/14/17 00:00 98.2 79 25 129/91 (104) 99 03/13/17 22:18 100 40 03/13/17 22:00 72 03/13/17 20:00 40 03/13/17 20:00 98.4 82 18 90/60 (70) 100 03/13/17 20:00 82 03/13/17 19:59 100 40 03/13/17 19:00 100 Mechanical Ventilator 40 03/13/17 18:00 82 03/13/17 16:00 98.2 82 18 93/56 (68) 100 03/13/17 16:00 82 03/13/17 15:42 100 40 03/13/17 14:00 106 03/13/17 12:00 98.3 91 18 114/69 (84) 100 03/13/17 12:00 91 Intake & Output 03/14/17 03/14/17 07:00 19:00 Intake Total 787 ml 350 ml Output Total 375 ml Balance 412 ml 350 ml IV Total 400 ml 350 ml Tube Feeding 387 ml Output Urine Total 375 ml Bladder Scan Volume Amount 375 ml 230 ml # Bowel Movements 0 Physical Exam CONSTITUTIONAL/GENERAL: This is an ill looking male who looks older than stated age, orally intubated. On sedation, currently on CPAP trial. TUBES/LINES/DRAINS: ETT, OG, PIVs, Hall catheter, SCDs, bilateral soft wrist restraints. SKIN: Rash/ecchymosis to RUE. Scattered ecchymoses on upper extremities. Open areas/scabs to right upper extremity. Scattered scabs on face. Skin temperature appropriate. HEAD: Atraumatic. Normocephalic. EYES: Pupils equal and round and reactive. No scleral icterus. No injection or drainage. Conjunctival erythema. ENT: Nose without bleeding or purulent drainage. Moist oral mucosa. Orally intubated. NECK: Trachea midline. Supple, nontender. CARDIOVASCULAR: Regular rate- sinus bradycardic and rhythm without murmurs, gallops, or rubs. No JVD. Peripheral pulses symmetric. RESPIRATORY/CHEST: Symmetric, unlabored respirations. Clear to auscultation. GASTROINTESTINAL: Abdomen soft, non-tender, nondistended. Bowel sounds present. GENITOURINARY: Without palpable bladder distension. Hall catheter in place with moderate amount of straw colored urine. MUSCULOSKELETAL: Extremities without clubbing, cyanosis. Edema to right forearm and bilateral lower extremities . No mottling or clubbing. NEUROLOGICAL: Patient orally intubated on mechanical ventilation. Eyes open, intermittently tracking. Not following any commands. PSYCHIATRIC: Unable to assess at this time due to clinical condition. Appears calm. . Diagnostic Tests Laboratory Laboratory Tests Test 03/12/17 05:23 03/12/17 20:00 03/13/17 05:01 03/13/17 15:35 White Blood Count 10.2 TH/MM3 (4.0-11.0) 9.4 TH/MM3 (4.0-11.0) Red Blood Count 3.30 MIL/MM3 (4.50-5.90) 3.15 MIL/MM3 (4.50-5.90) Hemoglobin 11.3 GM/DL (13.0-17.0) 10.8 GM/DL (13.0-17.0) Hematocrit 34.1 % (39.0-51.0) 32.4 % (39.0-51.0) Mean Corpuscular Volume 103.4 FL (80.0-100.0) 103.1 FL (80.0-100.0) Mean Corpuscular Hemoglobin 34.3 PG (27.0-34.0) 34.5 PG (27.0-34.0) Mean Corpuscular Hemoglobin Concent 33.2 % (32.0-36.0) 33.4 % (32.0-36.0) Red Cell Distribution Width 14.1 % (11.6-17.2) 14.1 % (11.6-17.2) Platelet Count 100 TH/MM3 (150-450) 142 TH/MM3 (150-450) Mean Platelet Volume 10.6 FL (7.0-11.0) 9.8 FL (7.0-11.0) CBC Comment AUTO DIFF Differential Total Cells Counted 100 Neutrophils % (Manual) 52 % (16-70) Band Neutrophils % 1 % (0-6) Lymphocytes % 28 % (9-44) Monocytes % 15 % (0-8) Eosinophils % 2 % (0-4) Basophils % 2 % (0-2) Neutrophils # (Manual) 5.4 TH/MM3 (1.8-7.7) Differential Comment FINAL DIFF MANUAL Platelet Estimate LOW (NORMAL) Platelet Morphology Comment NORMAL (NORMAL) Target Cells 1+ (NORMAL) Blood Urea Nitrogen 31 MG/DL (7-18) 33 MG/DL (7-18) Creatinine 2.83 MG/DL (0.60-1.30) 2.88 MG/DL (0.60-1.30) Random Glucose 91 MG/DL (74-106) 75 MG/DL (74-106) Calcium Level 8.2 MG/DL (8.5-10.1) 8.6 MG/DL (8.5-10.1) Phosphorus Level 4.1 MG/DL (2.5-4.9) Magnesium Level 1.9 MG/DL (1.5-2.5) Sodium Level 139 MEQ/L (136-145) 140 MEQ/L (136-145) Potassium Level 4.1 MEQ/L (3.5-5.1) 4.5 MEQ/L (3.5-5.1) Chloride Level 102 MEQ/L (98-107) 102 MEQ/L (98-107) Carbon Dioxide Level 28.6 MEQ/L (21.0-32.0) 28.1 MEQ/L (21.0-32.0) Anion Gap 8 MEQ/L (5-15) 10 MEQ/L (5-15) Estimat Glomerular Filtration Rate 23 ML/MIN (>89) 23 ML/MIN (>89) Blood Gas Puncture Site RT RADIAL Blood Gas Patient Temperature 98.6 Blood Gas HCO3 27 mmol/L (22-26) Blood Gas Base Excess 2.0 mmol/L (-2-2) Blood Gas Oxygen Saturation 65 % (90-100) Arterial Blood pH 7.35 (7.380-7.420) Arterial Blood Partial Pressure CO2 50 mmHg (38-42) Arterial Blood Partial Pressure O2 37 mmHg (61-120) Arterial Blood Oxygen Content 10.3 Vol % (12.0-20.0) Arterial Blood Carboxyhemoglobin 1.3 % (0-4) Arterial Blood Methemoglobin 0.8 % (0-2) Blood Gas Hemoglobin 11.2 G/DL (12.0-16.0) Oxygen Delivery Device VENTILATOR Blood Gas Ventilator Setting SEE COMMENT Blood Gas Inspired Oxygen 100 % Total Protein 6.1 GM/DL (6.4-8.2) Albumin 2.5 GM/DL (3.4-5.0) Alkaline Phosphatase 82 U/L (45-117) Aspartate Amino Transf (AST/SGOT) 59 U/L (15-37) Alanine Aminotransferase (ALT/SGPT) 42 U/L (12-78) Total Bilirubin 0.9 MG/DL (0.2-1.0) Ammonia 19 MCMOL/L (11-32) Test 03/14/17 04:20 Blood Urea Nitrogen 34 MG/DL (7-18) Creatinine 2.67 MG/DL (0.60-1.30) Random Glucose 100 MG/DL (74-106) Calcium Level 8.3 MG/DL (8.5-10.1) Sodium Level 139 MEQ/L (136-145) Potassium Level 3.2 MEQ/L (3.5-5.1) Chloride Level 102 MEQ/L (98-107) Carbon Dioxide Level 27.5 MEQ/L (21.0-32.0) Anion Gap 10 MEQ/L (5-15) Estimat Glomerular Filtration Rate 25 ML/MIN (>89) Result Diagram: 03/13/17 1535 03/14/17 0420 Procedures * 03/12/17 -reintubated * 03/12/17 -medical extubated * 03/09/17 -endotracheal Intubation * 03/09/17 -Bronchoscopy . Assessment and Plan Disease Oriented Problem List: (1) Acute hypoxemic respiratory failure (2) Acute kidney injury (3) PNA (pneumonia) (4) Encephalopathy (5) Cellulitis (6) Protein-calorie malnutrition (7) Physical deconditioning Symptom Scale: (1) Shortness of breath 0-10 Scale: Unable to quantify Comment: Currently intubated on mechanical ventilation. Reintubated 03/12/17. (2) Anxiety 0-10 Scale: Unable to quantify (3) Debility 0-10 Scale: Unable to quantify Comment: Progressive given acute events and prolonged hospitalization. Pertinent Non-Medical Issues Psychosocial: Patient is homeless. Chronic alcohol abuse and polysubstance abuse. On an admission in April, patient stated that he grew up in [place], [place], highest level of education is high school. Patient has as per records. Patient's mother and father . Patient also reported that he had been incarcerated at least 50 times. Spiritual: Unknown. Legal: unknown if advance directives have been completed. Ethical issues impacting care: Patient currently unable to make any medical decisions for himself secondary to current clinical condition, intubated on mechanical ventilation, sedated. Ongoing attempts at contacting next of kin. Important Contacts Ongoing attempts at contacting next of kin. Please see palliative care child welfare social worker note. . Prognosis Mr. Cuevas is a 57 years old male with a medical history significant for EtOH use and abuse, tobacco use and abuse and depression. Patient was brought to [facility] ED on 02/23/17 via EMS [place] sugar in the 40s. Patient was admitted for management of altered mental status associated with withdrawal delirium tremens and cellulitis to right upper extremity. Clinical course complicated by persistent encephalopathy, acute kidney injury and respiratory failure required intubation and mechanical ventilation. Patient is at high risk for further complications, continue decline and . . Code Status: Full Code Plan * CODE STATUS: Full Code by default. * HEALTHCARE DECISION-MAKING: Patient is unable to make medical decisions at this time given clinical status -persistent encephalopathy, delirium, polysubstance abuse, no history of alcohol abuse. Patient now endotracheally intubated on mechanical ventilation, sedated. Unclear at this time if advance directives have been completed, no records in chart. Ongoing attempts at contacting next of kin. As per patient's sister, when sure if patient ever had children. There was reportedly a son but he was never confirmed by DNA. As per [place] Statute, medical proxy decision making falls to majority of siblings as patient is not , no confirmed children, and both parents . * GOALS OF CARE: 03/14/17 - Palliative care attempting to identify proxy decision maker. Patient's sister Lore Darling located and contacted, additional siblings reported. Please see palliative care child welfare social worker's note: "Lore is currently reaching out to other siblings to see if they wish to participate in medical decision making. Informed her if they do not wish to participate they need to contact palliative SW. Otherwise, family meeting via conference will be set up. Awaiting call back from Lore with day/time for meeting to address goals of care". * SYMPTOMS:== Pain, multifactorial, secondary to endotracheal intubation, cellulitis to right arm, bedrest. Currently on Fentanyl gtt. patient appears comfortable. == Shortness of breath, secondary to acute respiratory failure. Currently intubated on mechanical ventilation. Reintubated 03/12/17. == Debility, secondary to acute illness and prolonged hospitalization. Likely to continue to worsen. Overall poor prognosis for a meaningful recovery. * Case discussed with Dr. Morales. Goals of care aggressive at this time by default. * Palliative care will continue to follow up for further clarification of goals of care as patient's clinical course continues to evolve. . Time Spent Total Floor Time (mins): 26 (Total time to include review of medical records, physical exam, case discussion with Dr. Morales, case discussion with palliative care child welfare social worker Skip Peña ) >50% Counseling/Coord of Care: Yes Attestation To help prompt me to consider important information that might be impacting today's encounter and assessment, information from prior notes written by myself or my colleagues may have been "brought forward" into today's note. My signature on this note, however, is an attestation that I personally performed the exam, history, and/or decision-making noted today, and, unless otherwise indicated, the interactions with patient, family, and staff as well as the review of records all occurred today. I also attest that the listed assessment and stated plan reflect my best clinical judgment today based on the combination of historical information, prior notes, and today's exam/ interactions. When time spent is documented, it refers only to time spent today by the signer, or if indicated, combined time spent today by collaborating physician/nurse practitioner. Gini Cummins Mar 14, 2017 11:48
[2017-03-15] VITALS (22 sets, daily range): BP systolic 69–140; BP diastolic 46–75; PULSE 56–119; RESP 18–22; TEMP 98.1–99.4; O2SAT 93–100
[2017-03-15] MEDS: metroNIDAZOLE 500 MG INJ 100 ML IV SCH ×2 (01:45→09:39)
--- NOTE | 2017-03-15 03:48 | RADRPT ---
EXAM DATE/TIME: 03/15/2017 02:45 [facility] COMPARISON: CHEST SINGLE AP, March 12, 2017, 19:45. INDICATIONS : Respiratory failure. MEDICAL HISTORY : Hepatitis C, Seizures, NV, Arthritis SURGICAL HISTORY : None. ENCOUNTER: Subsequent ACUITY: 3 weeks PAIN SCORE: Non-responsive. LOCATION: Bilateral chest FINDINGS: A single portable frontal view of the chest shows an endotracheal tube with the tip 4 cm proximal to jared. Nasogastric tube courses off the inferior margin of the film. Consolidation is seen involving the left lung base with small left effusion. This is new. The right lung is clear. No effusion on th e right. Heart is at the upper limits of normal in terms of size. CONCLUSION: 1. New left lower lobe infiltrate with small left effusion. Rigo Quach Jr., MD on March 15, 2017 at 3:46 Board Certified Radiologist. This report was verified electronically.
[2017-03-15] MEDS: PROPOFOL 1000 MG/100 ML INJ 100 ML IV PRN (05:00)
[2017-03-15] MEDS: ARTIFICIAL TEARS OPTH SOLN 15 ML BTL EACH EYE SCH ×3 (05:07→22:00)
[2017-03-15 05:18] LABS: AUTOMATED NEUTROPHIL # 4.4 TH/MM3 (1.8-7.7); BASOPHIL % 0.3 % (0.0-2.0); EOSINOPHIL # 0.3 TH/MM3 (0-0.4); EOSINOPHIL % 3.7 % (0.0-4.0); HEMO FLAGS DIFF FINAL; LYMPH % 20.1 % (9.0-44.0); LYMPHOCYTE # 1.5 TH/MM3 (1.0-4.8); MEAN CELL VOLUME 102.4 FL (80.0-100.0); MEAN CORPUSCULAR HEMOGLOBIN 34.1 PG (27.0-34.0); MEAN CORPUSCULAR HGB CONC 33.3 % (32.0-36.0); MONO % 16.1 % (0.0-8.0); NEUT % 59.8 % (16.0-70.0); PLATELET COUNT 131 TH/MM3 (150-450); RED BLOOD COUNT 3.02 MIL/MM3 (4.50-5.90); RED CELL DISTRIBUTION WIDTH 13.9 % (11.6-17.2); WHITE BLOOD COUNT 7.4 TH/MM3 (4.0-11.0)
[2017-03-15 05:45] LABS: ANION GAP 9 MEQ/L (5-15); AST (GOT) 39 U/L (15-37); BICARBONATE 28.3 MEQ/L (21.0-32.0); BLOOD UREA NITROGEN 34 MG/DL (7-18); CHLORIDE 106 MEQ/L (98-107); GLOMERULAR FILTRATION RATE 26 ML/MIN (>89); POTASSIUM 3.3 MEQ/L (3.5-5.1); SODIUM (NA) 143 MEQ/L (136-145)
[2017-03-15 05:49] LABS: ALKALINE PHOSPHATASE 78 U/L (45-117); ALT (GPT) 28 U/L (12-78); TOTAL BILIRUBIN ADULT 0.5 MG/DL (0.2-1.0)
[2017-03-15] MEDS: cloNIDine HCL 0.1 MG TAB PO SCH ×2 (09:00→13:00)
[2017-03-15] MEDS: METOPROLOL TARTRATE 100 MG TAB PO SCH ×2 (09:00→20:39)
[2017-03-15] MEDS: CEFEPIME INJ 2,000 MG in SODIUM CHLORIDE 0.9% INJ 100 ML IV SCH (09:39)
[2017-03-15] MEDS: AZITHROMYCIN INJ 500 MG in SODIUM CHLOR 0.9% 250 ML INJ 250 ML IV SCH (09:40)
[2017-03-15] MEDS: SODIUM CHLORIDE 0.9% FLUSH 10 ML FLUSH IV FLUSH SCH ×2 (09:41→21:00)
[2017-03-15] MEDS: CHLORHEXIDINE 0.12% (ORAL KIT) 15 ML CUP MT SCH ×2 (09:41→20:38)
[2017-03-15] MEDS: BENEPROTEIN POWDER 1 PACK G-TUBE SCH ×3 (09:41→17:38)
[2017-03-15] MEDS: LANSOPRAZOLE SOLUTAB 30 MG TAB NG SCH (09:42)
[2017-03-15] MEDS: chlordiazePOXIDE 25 MG CAP PO SCH (09:42)
[2017-03-15] MEDS: THIAMINE HCL 100 MG TAB PO SCH (09:42)
[2017-03-15] MEDS: HEPARIN SODIUM - SQ 10,000 UNITS/ML VIAL SQ SCH ×2 (09:42→21:29)
[2017-03-15] MEDS: MULTIVITAMIN TAB PO SCH (09:42)
--- NOTE | 2017-03-15 09:51 | HHI.FPPN ---
Subjective Remarks Patient has been mildly hypotensive on propofol drip. Plan to wean off propofol drip. Otherwise, patient has remained afebrile with vital signs stable overnight. No acute events overnight. Discussed plan of care with pillowcase turner and palliative care social human services assistants. The palliative care social human services assistants got in contact with all of the patient's siblings. None of the siblings want to be involved in the patient's plan of care, except perhaps one sibling. However, they should be getting back to the palliative care social human services assistants sometime today. They may be able to help clarify the patient's wishes. However, they were estranged from the patient and were surprised to hear that he is still alive given the patient's behavioral problems. (Anderson Matt MD R2) Objective Vitals Vital Signs Date Time Temp Pulse Resp B/P (MAP) Pulse Ox O2 Delivery O2 Flow Rate FiO2 03/15/17 08:22 100 50 03/15/17 07:00 100 Mechanical Ventilator 55 03/15/17 06:00 72 03/15/17 04:52 100 55 03/15/17 04:00 55 03/15/17 04:00 78 03/15/17 04:00 98.3 78 18 93/62 (72) 100 03/15/17 02:00 62 03/15/17 00:06 100 Ventilator 03/15/17 00:00 55 03/15/17 00:00 98.1 56 18 110/74 (86) 100 Manual Cuff/Auscultation 03/15/17 00:00 56 03/14/17 23:58 100 55 03/14/17 22:00 78 03/14/17 20:08 100 55 03/14/17 20:00 98.8 103 18 124/78 (93) 100 03/14/17 20:00 66 03/14/17 20:00 55 03/14/17 19:00 90 Mechanical Ventilator 55 03/14/17 18:00 83 03/14/17 17:23 99 50 03/14/17 16:00 40 03/14/17 16:00 103 03/14/17 16:00 97.9 103 18 105/76 (86) 97 03/14/17 14:00 106 03/14/17 12:00 100 03/14/17 12:00 99.2 100 19 115/69 (84) 96 03/14/17 12:00 40 03/14/17 11:48 94 50 03/14/17 10:00 96 03/14/17 09:55 40 03/14/17 09:55 98 40 I/O 03/14/17 03/14/17 03/14/17 03/15/17 03/15/17 03/15/17 07:00 15:00 23:00 07:00 15:00 23:00 Intake Total 687 ml 550 ml 1241 ml 790 ml Output Total 375 ml 550 ml 400 ml Balance 312 ml 550 ml 691 ml 390 ml IV Total 300 ml 550 ml 200 ml Tube Feeding 387 ml 741 ml 590 ml Other 500 ml Output Urine Total 375 ml 550 ml 400 ml Bladder Scan Volume Amount 230 ml # Bowel Movements 0 2 0 (Anderson Matt MD R2) Result Diagram: 03/15/17 0436 03/15/17 0436 Imaging Last Impressions Chest X-Ray 03/15/17 0600 Signed Impressions: Service Date/Time: February 02:45 - CONCLUSION: 1. New left lower lobe infiltrate with small left effusion. Rigo Quach Jr., MD Abdomen X-Ray 03/13/17 0000 Signed Impressions: Service Date/Time: Monday, March 13, 2017 13:04 - CONCLUSION: 1. The tip of the NG tube is just through the GE junction and into the stomach. Cliff Mack MD Brain MRI 03/10/17 0000 Signed Impressions: Service Date/Time: Friday, March 10, 2017 15:01 - CONCLUSION: No acute infarct or other acute intracranial abnormality. Atrophy and chronic white matter changes are again noted. Kilo Rowell MD Chest CT 03/09/17 0000 Signed Impressions: Service Date/Time: Thursday, March 09, 2017 04:59 - CONCLUSION: 1. Marked volume loss in the left hemithorax with near-complete collapse of the left lower lobe/lingula. There is still some aeration in the left upper lung. Some of this is due to the moderate sized left-sided effusion although there may be element of airway obstruction/mucus plugging as well. 2. Small right-sided effusion with become atelectatic changes in the right base. 3. Patchy biapical airspace disease.. Tone Henry MD Shoulder X-Ray 03/05/17 Signed Impressions: Service Date/Time: Sunday, March 05, 2017 20:57 - CONCLUSION: No acute disease. Rick Sanford MD Abdomen/Pelvis CT 03/04/17 0000 Signed Impressions: Service Date/Time: Saturday, March 04, 2017 10:31 - CONCLUSION: 1. There is no hydronephrosis or renal abnormality to explain the renal failure. However, there is subtle high density stranding along the medial and upper pole of the right kidney. Suggest followup CT to assess for change. 2. Abnormal mass arising from or abutting the spleen in the left upper quadrant measuring up to 7.5 cm. It contains a small amount of calcification. Suggest correlating with any prior imaging study that could offer additional characterization. If none are available suggest followup imaging to confirm stability and consider contrast enhanced CT or MRI for further characterization when patient condition permits. 3. Small bilateral pleural effusions, left larger than right, with associated compressive atelectasis. 4. Severe coronary artery calcification. Kilo Coulter MD Renal Ultrasound 02/27/17 0000 Signed Impressions: Service Date/Time: Monday, February 27, 2017 20:36 - CONCLUSION: 1. Mildly dilated left renal collecting system. Kidneys normal in size. Trace free fluid. Ruy Hussein MD Head CT 02/23/17 0000 Signed Impressions: Service Date/Time: Thursday, February 23, 2017 07:38 - CONCLUSION: No significant change has occurred. Maximus Pavon MD Objective Remarks GENERAL: male, lying in bed, eyes open but sedated and unresponsive; no obvious distress SKIN: Bilateral upper extremities with multiple well-healing scabs HEENT: ETT in place; OGT in place. Pupils grossly symmetrical; CARDIOVASCULAR: RRR without appreciable murmurs. grossly normal perfusion. No edema RESPIRATORY: normal rate; clear anterior breath sounds bilaterally, without wheezing GASTROINTESTINAL: Abdomen soft, non-tender, nondistended; + bowel sounds + condom cath MUSCULOSKELETAL: No cyanosis or edema. NEURO: Awake, not alert. Not responsive to verbal commands. No obvious facial asymmetry. Peripheral motor/sensory function not assessed due to lack of responsiveness to questioning/command. He does move his arms spontaneously but not purposefully. (Anderson Matt MD R2) Date of Insertion: Feb 23, 2017 (Anderson Matt MD R2) A/P Assessment and Plan 57-year-old white male with past medical history of alcohol withdrawal presented to the ED with severe hypoglycemia and altered mental status; patient has had progressively worsening renal function and is currently being followed for renal failure and continued altered mental status. Pt recently required intubation and sedation for respiratory distress and CT with opacification of the left lung concerning for left lung collapse in the context of mucus plugging , which was removed on 03/09. -Pt intubated and sedated on propofol/fentanyl as managed by breaking machine operator 03/10-03/12 - Pt having seizure-like activity - neuro consulted (Dr Kingston), stat Brain MRI w/o contrast, stat EEG, and Keppra 1g IV bolus, Lactate 1.9 today vs 1.5 yesterday. Repeat EEG still negative. Not having true seizures 03/12 - Pt ex-tubated, had increasing O2 requirement, and was subsequently re- intubated. Patient has remained mostly unresponsive since this time, and has not shown signs of improvement. Discharge Planning Pending workup for declining renal function, AMS, weaning off vent, which may not be possible Discussed plan of care with pillowcase turner and palliative care social human services assistants. The palliative care social human services assistants got in contact with all of the patient's siblings. None of the siblings want to be involved in the patient's plan of care , except perhaps one sibling. However, they should be getting back to the palliative care social human services assistants sometime today. They may be able to help clarify the patient's wishes. However, they were estranged from the patient and were surprised to hear that he is still alive. (Anderson Matt MD R2) Attending Attestation Patient seen and examined. Case reviewed and discussed with the resident team. Agree with plan of care as discussed with me and documented in the resident note. greatly appreciate every effort of palliative to contact his family as it has been very difficult to have anyone answer back with phone calls (Betzaida Connolly MD) Problem List: (1) Altered mental status ICD Codes: R41.82 - Altered mental status, unspecified Status: Acute Plan: Patient awake with eyes open but not responsive to commands. -Neuro consulted- -Continue Keppra -OK to stop sedatives -EEG negative; jerking not suspected to be seizure activity -Treat agitation -CIWA tapered -Stopped Librium, stopped Ativan -Haldol 1mg PRN q8hrs for agitation/psychosis -Holding Seroquel 25 mg PO qhs due to being intubated/sedated. 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 -Continue supportive treatment -Recommend judicious benzodiazepine usage--benzos stopped -May benefit from some type of extended care facility -Occupational therapy recommended OT at rehabilitation (PT recommended OT) -ST consulted -regular and thin liquids per ST. patient is dependent with total help required. -Continue IVF while not having adequate intake -D5 1/2 NS at 40ml/hr -Seizure precautions Impression: AMS initially suspected secondary to alcoholism; persistent UDS positive for Benzos and Cocaine Brain MRI on 02/25- atrophy, periventricular changes without evidence for acute infarction Head CT on admission- no significant change EEG 03/12- diffuse slowing with medication effect and diffuse encephalopathy without focal abnormalities. No seizure activity; jerking episodes witnessed w/ o seizure activity RPR nonreactive CMP on admission with mild hyponatremia (134), transaminase elevations, calcium of 8.1 Hep panel pending Thiamine level high at 325 Ammonia normal then high (2) Respiratory disease ICD Codes: J98.9 - Respiratory disorder, unspecified Plan: Impression: Progressive worsening of respiratory status 03/09 requiring move to ICU and intubation/sedation and bronchial lavage to remove mucous plugs from both left and right mainstem bronchi. CXR 03/10 with persistent L basilar consolidation/effusion. Improving aeration in right base. Stable position of life support tubes Bronchial washing cultures: Fungal culture with yeast AFB negative; culture pending Bronchial bacterial culture with light growth of normal ariela -Continue CPAP, O2 per CC/respiratory therapy (3) PNA (pneumonia) ICD Codes: J18.9 - Pneumonia, unspecified organism Status: Acute Plan: -Was treated with antibiotic therapy from 03/02 - 03/07 for 5-6 days to treat pneumonia; repeat broader spectrum abx since 03/09 to present (03/15). Today is day 7 of abx. -Azithromycin 500mg IV daily -Cefepime 2g IV daily renally dosed -Flagyl 500 mg IV daily renally dosed -s/p Solumedrol 40mg IV BID -Continue Duonebs q4h -Continue O2 as needed Impression: Patient with symptoms of cough and intermittent hypoxia to low 90's requiring O2 supplementation; worsening of respiratory disease 03/09 with subsequent intubation and bronchoscopy w/ washing. CXR 03/02 with increasing consolidative changes in the left base. CXR 03/10 with persistent L basilar consolidation/effusion. Improving aeration in right base. Stable position of life support tubes Initial blood cultures + for staph hominis; subsequently negative 02/26, 03/02 Sputum cultures not obtained Urine Legionella, strep pneumo negative (4) SAQIB (acute kidney injury) ICD Codes: N17.9 - Acute kidney failure, unspecified Status: Acute Plan: Cr downtrending since 03/13. -Nephrology consulted: Diagnosed with Acute renal failure acute tubular necrosis with drug use, Non oliguric, creatinine is slightly worse. -Changed IVF to D51/2NS, reduced the rate to 40 ml/hour. -Monitor BMP -CT abdomen/pelvis- No hydronephrosis. Subtle high density stranding medial/ upper right kidney. Abnormal mass arising from/abutting spleen LUQ measuring up to 7.5 cm with small amount of calcification. Discussed with radiologist. Likely from previous trauma. No further workup indicated. Impression: Patient with SAQIB. Creatinine trended: 0.86 on admission Suspect intrinsic cause as Cr elevation refractory to fluid supplementation, BUN /Cr ratio <20/1, and catheterized Previously on Vancomycin-> discontinued Renal US 02/27 with mild L hydronephrosis; normal kidneys No urine eosinophils Urine random Cr 41.6 Urine random sodium 97 (5) Hypertension ICD Codes: I10 - Essential (primary) hypertension Status: Resolved Plan: Since propofol drip, patient has been intermittently hypotensive. If blood pressure tolerates, -Continue Amlodipine 10mg PO daily -Will hold Hydralazine 25 mg q12h since hypotensive -Metoprolol 100 mg q12h -Clonidine 0.1mg TID -Clonidine 0.1 mg q6h PRN For SBP >/= 180, DBP >/= 100 (6) FEN Status: Acute Plan: Fluids: none Electrolytes: Monitor and replace per protocol Nutrition: Tube feeds GI PPx: Lansoprazole 30 mg NG/day VTE prophylaxis: Heparin 5000 units every 12 hours (Anderson Matt MD R2) Problem Qualifiers (1) Altered mental status: Qualified Codes: R41.0 - Disorientation, unspecified (2) PNA (pneumonia): Qualified Codes: J18.9 - Pneumonia, unspecified organism (3) Hypertension: Qualified Codes: I10 - Essential (primary) hypertension Anderson Matt MD R2 Mar 15, 2017 09:51 Betzaida Connolly MD Mar 16, 2017 15:53
--- NOTE | 2017-03-15 11:10 | HHI.NPPN ---
Subjective History of Present Illness 57-year-old male with the alcohol withdrawal, altered mental status, acute renal failure Additional Remarks On ventilator Objective Data Data Vital Signs Date Time Temp Pulse Resp B/P (MAP) Pulse Ox O2 Delivery O2 Flow Rate FiO2 03/15/17 08:22 100 50 03/15/17 07:00 100 Mechanical Ventilator 55 03/15/17 06:00 72 03/15/17 04:52 100 55 03/15/17 04:00 55 03/15/17 04:00 78 03/15/17 04:00 98.3 78 18 93/62 (72) 100 03/15/17 02:00 62 03/15/17 00:06 100 Ventilator 03/15/17 00:00 55 03/15/17 00:00 98.1 56 18 110/74 (86) 100 Manual Cuff/Auscultation 03/15/17 00:00 56 03/14/17 23:58 100 55 03/14/17 22:00 78 03/14/17 20:08 100 55 03/14/17 20:00 98.8 103 18 124/78 (93) 100 03/14/17 20:00 66 03/14/17 20:00 55 03/14/17 19:00 90 Mechanical Ventilator 55 03/14/17 18:00 83 03/14/17 17:23 99 50 03/14/17 16:00 40 03/14/17 16:00 103 03/14/17 16:00 97.9 103 18 105/76 (86) 97 03/14/17 14:00 106 03/14/17 12:00 100 03/14/17 12:00 99.2 100 19 115/69 (84) 96 03/14/17 12:00 40 03/14/17 11:48 94 50 -: 03/15/17 0436 03/15/17 0436 Physical Exam General Appearance: Malnourished Eyes Eye Exam: Pupils Equal Neck Neck Exam: Neck Supple Pulmonary Resp Exam: Crackles, Rhonchi, Diminished Breath Sounds Cardiology CV Exam: Regular, Normal Sinus Rhythm Gastrointestinal/Abdomen GI Exam: Soft, Non-Tender, Bowel Sounds Present Musculoskeletal MS Exam: Unable to Ambulate MS Remarks left shoulder sub laxation ? dislocated Extremeties Extremities Exam: No Edema Assessment/Plan Problem List: (1) SAQIB (acute kidney injury) ICD Codes: N17.9 - Acute kidney failure, unspecified Status: Acute Plan: Acute renal failure acute tubular necrosis with drug use Non oliguric, creatinine is stable at 2.67 replace K Hepatitis C positive Ammonia not high s/p bronchoscopy with removal of mucous plug self extubated FU FIDEL TB test Creatinine is slowly declining 2.6 and remains nonoliguric Replace potassium [address] scan abdominal reviewed Subtle high density stranding medial/upper right kidney. Abnormal mass arising from/abutting spleen LUQ measuring up to 7.5 cm with small amount of calcification (2) Alcohol withdrawal ICD Codes: F10.239 - Alcohol dependence with withdrawal, unspecified Status: Chronic Plan: Patient remained in altered mental status (3) Hypertension ICD Codes: I10 - Essential (primary) hypertension Status: Resolved Plan: Patient's blood pressure was labile continue to monitor Problem Qualifiers (1) Alcohol withdrawal: Qualified Codes: F10.231 - Alcohol dependence with withdrawal delirium (2) Hypertension: Qualified Codes: I10 - Essential (primary) hypertension Daryl Martinez MD Mar 15, 2017 10:56
--- NOTE | 2017-03-15 12:09 | HHI.CCPN ---
Subjective Remarks/Hospital Course This is a 57-year-old male that was found down and admitted to this hospital 02/23/2017. Urine tox screen revealed patient was positive for benzodiazepines and cocaine at that time. Since admission the patient has been on a [facility] protocol, neurology has been consulted Dr. Wayne, with continued supportive care. Over the last 48 hours the patient was noted to have elevation in his creatinine with a significant decrease in urine output acute renal failure nephrology was consulted the patient continues on gentle diuresis and received 80 mg of Lasix IV this afternoon and is currently on sodium bicarbonate infusion at 110 cc/an hour. Due to the patient's respiratory insufficiency, and altered mental status concern for possible continued respiratory decompensation the patient was transferred to the ICU, and critical care was consulted for management. Upon entering the patient's room the patient was noted to be lethargic having received 4 mg of Ativan in the last 4 hours, but opens eyes to sternal rub. The patient was noted to have O2 saturation of 95% on O2 via nasal cannula at 5 L with no accessory respiratory efforts. Stat ABG was ordered pending, to rule out CO2 narcosis. Since admission to ICU the patient was noted to diuresis of 700 cc. 03/03: Afebrile. The patient did not receive any Ativan since 3 PM on 03/02/17. The patient rested well overnight, eventually waking and responding. This a.m. the patient's noted to be sitting up in bed, alert and responsive. Librium has been added to medication regimen for alcohol withdrawal. Noted to be oriented to date of unable to provide name or place at this time. Essential tremors, fine tremors noted. The patient severely weak and unable to feed self without assistance. The patient's diet was advanced to regular diet, tolerating well, 100% consumption. PO meds were held since admission to ICU secondary to lethargy, all by mouth meds resumed this a.m.. The patient currently is compliant following commands, inappropriate responses, with noted incomprehensible words, language at times. Patient is noted to be very weak. Nasal cannula O2 has been weaned down to approximately 3 L, the patient appears in no respiratory distress. Subjective: 03/09: Reconsulted secondary acute respiratory failure. Chest x-ray earlier in the morning revealed collapse versus large pleural effusion left side. Patient oxygen requirements had increased from 4 L to a nonrebreather mask. CT thorax revealed likely mucous plugging/collapsed lung left side. Small to moderate left pleural effusion. Patient was combative upon arrival ICU in place in soft restraints. Due to mental status/mucous plugging patient was electively intubated using 20 mg etomidate and 50 mg, rocuronium. Patient was bronched which revealed thick white mucous plugging in the left and right mainstem. These were lavaged to left upper lobe/lingula and left lower lobe, right upper middle and lower lobes. Samples were sent see orders. Currently sedated with propofol and fentanyl drips. 03/10: Tonic seizures today when propofol stopped. Seizures ceased with propofol bolus. Left pneumonia persists but improved aeration after bronch . 03/11: Gas exchange acceptable. Continues to have tonic "seizures" when propofol is lightened. EEG 03/10 states no seizures but we will repeat EEG again today with stimulation and off propofol. Can't extubate until this "seizure" activity is resolved. Vomited tube feeds, will reduce and add reglan. 03/12: Off sedation tolerating CPAP even though intermittently apneic. Appears to follows commands but weekly on the upper extremity. No obvious seizures. EEG negative for seizure 03/11/17. Creatinine slightly improved to 2.8 from 3 03/13: Failed extubation on 03/12. Currently sedated, orally intubated on mechanical ventilation. Has thick copious respiratory secretions per [employer]. 03/14: Remains sedated, orally intubated on mechanical ventilation. Feeling C Pap trials. Not following commands on lightening sedation. 03/15: Remains intubated encephalopathy. Left lower lobe infiltrate again indicating probable mucous plugging/collapse. Palliative care meeting with family today. I recommend tracheostomy and PEG tube placement. D/W palliative care team Objective Vital Signs Date Time Temp Pulse Resp B/P (MAP) Pulse Ox O2 Delivery O2 Flow Rate FiO2 03/15/17 11:29 99 50 03/15/17 07:00 Mechanical Ventilator 03/15/17 06:00 72 03/15/17 04:00 98.3 18 93/62 (72) 03/12/17 18:00 5.00 Intake and Output 03/15/17 03/15/17 03/16/17 08:00 16:00 00:00 Intake Total 790 ml Output Total 400 ml Balance 390 ml Result Diagram: 03/15/17 0436 03/15/17 0436 Imaging Last Impressions Shoulder X-Ray 03/05/17 0000 Signed Impressions: Service Date/Time: Sunday, March 05, 2017 20:57 - CONCLUSION: No acute disease. Rick Sanford MD Abdomen/Pelvis CT 03/04/17 0000 Signed Impressions: Service Date/Time: Saturday, March 04, 2017 10:31 - CONCLUSION: 1. There is no hydronephrosis or renal abnormality to explain the renal failure. However, there is subtle high density stranding along the medial and upper pole of the right kidney. Suggest followup CT to assess for change. 2. Abnormal mass arising from or abutting the spleen in the left upper quadrant measuring up to 7.5 cm. It contains a small amount of calcification. Suggest correlating with any prior imaging study that could offer additional characterization. If none are available suggest followup imaging to confirm stability and consider contrast enhanced CT or MRI for further characterization when patient condition permits. 3. Small bilateral pleural effusions, left larger than right, with associated compressive atelectasis. 4. Severe coronary artery calcification. Kilo Coulter MD Chest X-Ray 03/02/17 0000 Signed Impressions: Service Date/Time: Thursday, March 02, 2017 08:18 - CONCLUSION: Increasing consolidative changes left base. Nasir Mack MD FACR Renal Ultrasound 02/27/17 0000 Signed Impressions: Service Date/Time: Monday, February 27, 2017 20:36 - CONCLUSION: 1. Mildly dilated left renal collecting system. Kidneys normal in size. Trace free fluid. Ruy Hussein MD Brain MRI 02/25/17 0000 Signed Impressions: Service Date/Time: Saturday, February 25, 2017 12:37 - CONCLUSION: Atrophy, periventricular changes without evidence for acute infarction. Nasir Mack MD FACR Head CT 02/23/17 0000 Signed Impressions: Service Date/Time: Thursday, February 23, 2017 07:38 - CONCLUSION: No significant change has occurred. Maximus Pavon MD Objective Remarks GENERAL: 57-year-old male, Awake on vent, encephalopathic with a blank stare SKIN: Warm and dry. Clean gauze dressing right forearm HEAD: Atraumatic. Normocephalic. EYES: Pupils equal and round around 2 mm bilaterally and reactive. No scleral icterus. No injection or drainage. ENT: No nasal bleeding or discharge. Mucous membranes pink and moist. NECK: Trachea midline. Orally intubated. CARDIOVASCULAR: RRR. S1, S2 no S4. Without murmur. No JVD. RESPIRATORY: Orally intubated on mechanical ventilation, Diminished breath sounds left lung thomas. No wheezing. Moderate ET secretions GASTROINTESTINAL: Abdomen soft, non-tender, nondistended. Active bowel sounds appreciated MUSCULOSKELETAL: Extremities without without significant peripheral edema. No obvious deformities. Right forearm dressing NEUROLOGICAL: Eyes are open spontaneously not following commands for me. Moving all 4 extremities equally. Date of Insertion: Feb 23, 2017 A/P Assessment and Plan Neuro/Psych: Encephalopathy/Delirium most likely metabolic Admission with EtOH withdrawal - likely completed Polysubstance abuse including cocaine and benzodiazepines Polyneuropathy of critical illness Patient is currently on propofol for sedation/analgesia while intubated. Patient is followed by Dr. Wayne/neurology. EEG's reveal moderate encephalopathy no epileptiform activity MRI negative for acute findings Previous on Seroquel 25 mg at night and Haldol when necessary Librium decreased from 50mg BID to 25 mg twice a day on 03/12-DC today Seizure precautions Seizures 03/10, recur when propofol off. Continue thiamine 100 mg daily Respiratory: Acute hypoxemic respiratory failure secondary to aspiration Recommend left lower lobe collapse/mucus plugging Bronchoscopy today. Recommend tracheostomy as the patient will not be able to protect airway PRVC 16/500/1/5/40. Daily breathing trials Ventilator bundle. Albuterol/ipratropium aerosols every 4 hours with albuterol aerosols every 2 hours.PRN hypertonic saline aerosols every 4 hours 5 days to thin secretions CT thorax from 03/09 revealed collapse left upper/lingula lobes with significant secretions left main bronchus. Improved aeration 03/10 Cardiovascular: Hypertension Currently on amlodipine 10 mg daily, clonidine 0.1 mg 3 times a day and metoprolol 5 mg by mouth twice a day for hypertension Maintain MAP > 65 mmHG Renal: Acute kidney injury secondary to ATN Nephrology following Dr. Martinez. Accurate I's and O's Monitor urine output No signs of hydronephrosis on renal imaging Urine eosinophils negative FEN/GI: Mild protein calorie malnutrition Hyperkalemia Hep C Continue tube feeds and advanced to goal as tolerated Lansoprazole for GI prophylaxis Docusate sodium senna 1 tablet twice a day for bowel regimen Heme/ID: Macro Anemia Thrombocytopenia Pneumonia Patiently pancultured including bronchoscopy washings, UA. Blood cultures 2 performed Currently on cefepime-continue, DC Flagyl and azithromycin renally dosed since -03/15/17 Endocrine: Sliding-scale insulin to maintain euglycemia/low regimen with NovoLog every 6 hours Prophylaxis: GI Prophylaxis Lansoprazole DVT Prophylaxis -- SCDs/heparin subcutaneous Lines: Peripheral IVs providing adequate access at this time. Palliative care team following to assist with deciding goals of therapy. Overall impression: Critically ill with new onset recurrent seizures and hypoxemic respiratory failure. Left lung more well aerated after bronchoscopy. Failed extubation on 03/12 and required reintubation. Recommend trach and PEG. Family meeting with palliative care today Level 3 Grace Boateng MD Mar 15, 2017 12:08
[2017-03-15] MEDS: POTASSIUM CHLOR 20 MEQ PREMIX 100 ML IV SCH ×2 (14:03→16:27)
--- NOTE | 2017-03-15 14:35 | HHI.HCPN ---
Spoke with patient's sister, Lore. She is willing to participate in decision making. She tells me patient's brother, Vito, has essentially deferred to her. Received call from Vito confirming he does not wish to participate in medical decision making but would like to say that he feels Mr. Cuevas would not fine this level of care (ventilator, feeding tube, etc) acceptable and quality of life. Health care proxy falls to patient's sister Lore Darling as other siblings have opted out. Lore inquires about patient's medical status. Answered her questions and concerns to the best of my ability. In review of notes, gently discussed possibility of trach and peg. She immediately responds with "no feeding tube". She further reports she does not feel Mr. Cuevas would find this to be quality of life and would not find it acceptable. Lore talks about his free spirited nature and "drinking being his poison". She talks about the families experience with their mother dying and none of them "would want that" referring to the ventilator. She further tells me what is being done at this point would probably be unacceptable to Mr. Cuevas. She asks about transition to comfort measures. Answered her questions and concerns. Informed her palliative care WALL COVERING CONTRACTOR will phone her to provide medical update and answer questions/concerns. If transition to comfort measures only and compassionate withdrawal of life support if chosen, brother, Vito, desires a courtesy call when tubes are removed and when he passes away. Lore remains appreciative of medical team and palliative support. She provided her work number ([phone]) and fax number should any documents need to be signed: #[phone]. Important Contacts: Lore Darling (sister): [phone]- desires to participate in medical decision making Hugo Darling (brother in law): [phone] Vito Cuevas (brother): [phone]-- does not wish to participate Trixie Durand (sister): [phone]-- does not wish to participate in decision making. Damien Faith (half brother): Lore provided my contact information for him to contact palliative care, no call, Lore reports he does not wish to participate especially given no contact to pal-care. Palliative care will continue to follow throughout hospitalization. Anna Quach, ENGINE TESTER Mar 15, 2017 14:34
[2017-03-15] MEDS ORDERED: MIDAZOLAM HCL 5 MG/5 ML VIAL IV PUSH ONE (15:00)
[2017-03-15] MEDS ORDERED: fentaNYL CITRATE 250 MCG/5 ML AMP IV PUSH ONE (15:00)
[2017-03-15] MEDS ORDERED: ROCURONIUM INJ 50 MG/5 ML VIAL IV ONE (15:00)
[2017-03-15] MEDS ORDERED: MIDAZOLAM HCL 5 MG/ML VIAL (1 ML) ONE (15:04)
--- NOTE | 2017-03-15 15:27 | PD.PROCEDR ---
Procedure Note Procedure Procedure: Bronchoscopy with bronchoalveolar lavage DATE: 03/15/2017 INDICATION: LLL collapse with mucous plugging DESCRIPTION OF THE PROCEDURE The patient was placed in supine position. The ventilator was ACV 16/500/5/100 %. ]Sedated with propofol, additional sedation provided with 5 mg IV Versed, 200 g fentanyl, and rocuronium 50 mg IV 1. Saturations 100%. I entered the 8.0 ET tube with flexible bronchoscopy. There was thick white secretions throughout L main bronchus and left upper and lower lobe bronchi including the subsegmental bronchi. These were lavaged copiously with multiple saline washings. Mucosa was normal. BAL specimen collected from left lower lobe. Right bronchi including subsegmental bronchi was devoid of any major secretions ESTIMATED BLOOD LOSS: Minimal COMPLICATIONS: No apparent complications. STAT chest x-ray pending at this time Grace Boateng MD Mar 15, 2017 15:27
--- NOTE | 2017-03-15 16:10 | RADRPT ---
EXAM DATE/TIME: 03/15/2017 15:27 [facility] COMPARISON: CHEST SINGLE AP, March 15, 2017, 2:45. INDICATIONS : S/p bronchoscopy. MEDICAL HISTORY : Hepatitis C. Myocardial infarction. seizures, arthritis, depression SURGICAL HISTORY : None. ENCOUNTER: Initial ACUITY: 3 weeks PAIN SCORE: Non-responsive. LOCATION: Bilateral chest FINDINGS: A single view of the chest demonstrates improving aeration in the left base marked reduction in the l eft basilar consolidation/effusion. Minimal right perihilar atelectatic changes. Right lung is otherw ise clear. No pneumothorax. Heart size is normal. Endotracheal tube is appropriately positioned above the jared with the nasogastric tube traversing the GE junction. Osseous structures are intact. CONCLUSION: 1. No pneumothorax post bronchoscopy. 2. Improved aeration in the left base with resolving consolidation/effusion. Minimal atelectatic ol[place] ges remain. 3. Minimal right perihilar atelectatic changes. Right lung is otherwise clear. 4. Stable position of life support tubes Tone Henry MD on March 15, 2017 at 16:07 Board Certified Radiologist. This report was verified electronically.
--- NOTE | 2017-03-15 16:36 | HHI.HCPN ---
Reason for visit a. To assist with evaluation and management of symptoms including: Shortness of breath, debility b. To assist medical decision maker(s) with: better understanding of current medical conditions; weighing benefits/burdens of medical treatment options; making medical treatment decisions. Subjective/Interval History Mr. Cuevas is a 57 years old male with a medical history significant for EtOH use and abuse, tobacco use and abuse and depression. Patient was brought to [facility] ED on 02/23/17 via [place] the 40s. Patient was admitted for management of altered mental status associated with withdrawal delirium tremens and cellulitis to right upper extremity. Clinical course complicated by acute kidney failure, persistent altered mental status and respiratory failure requiring intubation and mechanical ventilation. Palliative care consulted for further clarifications of goals of care. Patient seen in ICU, remains intubated and sedated. FIO2 40%, O2 saturation high 90s. Patient has his eyes open, tracking with spontaneous movement to LUE. Not following any commands or attempting to communicate. Failed CPAP trial today. Patient remains afebrile, SBP 90s-140s. Chest x-ray today revealed new left lower lobe infiltrate with small left effusion. Patient underwent bronchoscopy with bronchoalveolar lavage today. Laboratory workup today revealing WBC 11.4 hemoglobin 10.3 platelet count 131, sodium 143, potassium 3.3 , BUN/creatinine 34/2.60, Albumin 2.0. Case discussed with Dr. Boateng and bedside RN Trixie. . Family/friend interactions Telephone conversation with patient`s sister Lore Darling. Medical update provided. Shared concerns of patient's overall poor prognosis given persistent respiratory failure required intubation and mechanical ventilation/not tolerating CPAP trials, persistent encephalopathy, acute kidney injury and overall physical deconditioning. Patient's sister electing comfort-directed care to include DNR/DNI, NO tracheostomy, NO PEG tube and NO additional invasive interventions/procedures. As per previous telephone conversation with palliative care social organization professor Skip Quach, pt's sister reports "she does not feel Mr. Cuevas would find this to be quality of life and would not find it acceptable. Lore talks about his free spirited nature and "drinking being his poison". She talks about the families experience with their mother dying and none of them "would want that" referring to the ventilator. She further tells me what is being done at this point would probably be unacceptable to Mr. Cuevas. She asks about transition to comfort measures". Patient sister electing no CODE STATUS. . Advance Directives Advance Directive Specifics Health Care Surrogate(s): Unknown at this time if advance directives has been completed, no records in file. Palliative care has been able to communicate with patient`s siblings and his sister opted to serve as his health care proxy. . Significant change in goals: No code. Patient's sister and electing comfort-directed care. . Objective Vital Signs Date Time Temp Pulse Resp B/P (MAP) Pulse Ox O2 Delivery O2 Flow Rate FiO2 03/15/17 14:00 98 03/15/17 12:00 98.6 104 22 140/71 (94) 93 03/15/17 12:00 104 03/15/17 12:00 50 03/15/17 11:30 50 03/15/17 11:29 99 50 03/15/17 10:00 97 03/15/17 08:22 100 50 03/15/17 08:00 86 03/15/17 08:00 99.0 86 18 109/72 (84) 100 03/15/17 08:00 50 03/15/17 07:00 100 Mechanical Ventilator 55 03/15/17 06:00 72 03/15/17 04:52 100 55 03/15/17 04:00 55 03/15/17 04:00 78 03/15/17 04:00 98.3 78 18 93/62 (72) 100 03/15/17 02:00 62 03/15/17 00:06 100 Ventilator 03/15/17 00:00 55 03/15/17 00:00 98.1 56 18 110/74 (86) 100 Manual Cuff/Auscultation 03/15/17 00:00 56 03/14/17 23:58 100 55 03/14/17 22:00 78 03/14/17 20:08 100 55 03/14/17 20:00 98.8 103 18 124/78 (93) 100 03/14/17 20:00 66 03/14/17 20:00 55 03/14/17 19:00 90 Mechanical Ventilator 55 03/14/17 18:00 83 03/14/17 17:23 99 50 03/14/17 16:00 40 03/14/17 16:00 103 03/14/17 16:00 97.9 103 18 105/76 (86) 97 Intake & Output 03/15/17 03/15/17 07:00 19:00 Intake Total 790 ml 450 ml Output Total 400 ml 0 ml Balance 390 ml 450 ml IV Total 200 ml 450 ml Tube Feeding 590 ml Output Urine Total 400 ml Tube Feeding Residual Discard 0 ml # Bowel Movements 0 Physical Exam CONSTITUTIONAL/GENERAL: This is an ill looking male who looks older than stated age, orally intubated. TUBES/LINES/DRAINS: ETT, OGT, PIVs, Hall catheter, SCDs, bilateral soft wrist restraints. SKIN: Rash/ecchymosis to RUE. Scattered ecchymoses on upper extremities. Open areas/scabs to right upper extremity. Scattered scabs on face. Skin temperature appropriate. HEAD: Atraumatic. Normocephalic. EYES: Pupils equal and round and reactive. No scleral icterus. No injection or drainage. Conjunctival erythema. ENT: Nose without bleeding or purulent drainage. Moist oral mucosa. Orally intubated. NECK: Trachea midline. Supple, nontender. CARDIOVASCULAR: Regular rate- sinus bradycardic and rhythm without murmurs, gallops, or rubs. No JVD. Peripheral pulses symmetric. RESPIRATORY/CHEST: Symmetric, unlabored respirations. Coarse breath sounds bilaterally. GASTROINTESTINAL: Abdomen soft, non-tender, nondistended. Bowel sounds present. GENITOURINARY: Without palpable bladder distension. Hall catheter in place with moderate amount of straw colored urine. MUSCULOSKELETAL: Extremities without clubbing, cyanosis. Edema to right forearm and bilateral lower extremities . No mottling or clubbing. NEUROLOGICAL: Patient orally intubated on mechanical ventilation. Eyes open, intermittently tracking. Not following any commands. PSYCHIATRIC: Unable to assess at this time due to clinical condition. Appears calm. . Diagnostic Tests Laboratory Laboratory Tests Test 03/12/17 20:00 03/13/17 05:01 03/13/17 15:35 03/14/17 04:20 Blood Gas Puncture Site RT RADIAL Blood Gas Patient Temperature 98.6 Blood Gas HCO3 27 mmol/L (22-26) Blood Gas Base Excess 2.0 mmol/L (-2-2) Blood Gas Oxygen Saturation 65 % (90-100) Arterial Blood pH 7.35 (7.380-7.420) Arterial Blood Partial Pressure CO2 50 mmHg (38-42) Arterial Blood Partial Pressure O2 37 mmHg (61-120) Arterial Blood Oxygen Content 10.3 Vol % (12.0-20.0) Arterial Blood Carboxyhemoglobin 1.3 % (0-4) Arterial Blood Methemoglobin 0.8 % (0-2) Blood Gas Hemoglobin 11.2 G/DL (12.0-16.0) Oxygen Delivery Device VENTILATOR Blood Gas Ventilator Setting SEE COMMENT Blood Gas Inspired Oxygen 100 % Blood Urea Nitrogen 33 MG/DL (7-18) 34 MG/DL (7-18) Creatinine 2.88 MG/DL (0.60-1.30) 2.67 MG/DL (0.60-1.30) Random Glucose 75 MG/DL (74-106) 100 MG/DL (74-106) Total Protein 6.1 GM/DL (6.4-8.2) Albumin 2.5 GM/DL (3.4-5.0) Calcium Level 8.6 MG/DL (8.5-10.1) 8.3 MG/DL (8.5-10.1) Alkaline Phosphatase 82 U/L (45-117) Aspartate Amino Transf (AST/SGOT) 59 U/L (15-37) Alanine Aminotransferase (ALT/SGPT) 42 U/L (12-78) Total Bilirubin 0.9 MG/DL (0.2-1.0) Sodium Level 140 MEQ/L (136-145) 139 MEQ/L (136-145) Potassium Level 4.5 MEQ/L (3.5-5.1) 3.2 MEQ/L (3.5-5.1) Chloride Level 102 MEQ/L (98-107) 102 MEQ/L (98-107) Carbon Dioxide Level 28.1 MEQ/L (21.0-32.0) 27.5 MEQ/L (21.0-32.0) Anion Gap 10 MEQ/L (5-15) 10 MEQ/L (5-15) Estimat Glomerular Filtration Rate 23 ML/MIN (>89) 25 ML/MIN (>89) Ammonia 19 MCMOL/L (11-32) White Blood Count 9.4 TH/MM3 (4.0-11.0) Red Blood Count 3.15 MIL/MM3 (4.50-5.90) Hemoglobin 10.8 GM/DL (13.0-17.0) Hematocrit 32.4 % (39.0-51.0) Mean Corpuscular Volume 103.1 FL (80.0-100.0) Mean Corpuscular Hemoglobin 34.5 PG (27.0-34.0) Mean Corpuscular Hemoglobin Concent 33.4 % (32.0-36.0) Red Cell Distribution Width 14.1 % (11.6-17.2) Platelet Count 142 TH/MM3 (150-450) Mean Platelet Volume 9.8 FL (7.0-11.0) Test 03/15/17 04:36 White Blood Count 7.4 TH/MM3 (4.0-11.0) Red Blood Count 3.02 MIL/MM3 (4.50-5.90) Hemoglobin 10.3 GM/DL (13.0-17.0) Hematocrit 31.0 % (39.0-51.0) Mean Corpuscular Volume 102.4 FL (80.0-100.0) Mean Corpuscular Hemoglobin 34.1 PG (27.0-34.0) Mean Corpuscular Hemoglobin Concent 33.3 % (32.0-36.0) Red Cell Distribution Width 13.9 % (11.6-17.2) Platelet Count 131 TH/MM3 (150-450) Mean Platelet Volume 8.9 FL (7.0-11.0) Neutrophils (%) (Auto) 59.8 % (16.0-70.0) Lymphocytes (%) (Auto) 20.1 % (9.0-44.0) Monocytes (%) (Auto) 16.1 % (0.0-8.0) Eosinophils (%) (Auto) 3.7 % (0.0-4.0) Basophils (%) (Auto) 0.3 % (0.0-2.0) Neutrophils # (Auto) 4.4 TH/MM3 (1.8-7.7) Lymphocytes # (Auto) 1.5 TH/MM3 (1.0-4.8) Monocytes # (Auto) 1.2 TH/MM3 (0-0.9) Eosinophils # (Auto) 0.3 TH/MM3 (0-0.4) Basophils # (Auto) 0.0 TH/MM3 (0-0.2) CBC Comment DIFF FINAL Differential Comment Blood Urea Nitrogen 34 MG/DL (7-18) Creatinine 2.60 MG/DL (0.60-1.30) Random Glucose 120 MG/DL (74-106) Total Protein 6.2 GM/DL (6.4-8.2) Albumin 2.0 GM/DL (3.4-5.0) Calcium Level 8.5 MG/DL (8.5-10.1) Magnesium Level 2.0 MG/DL (1.5-2.5) Alkaline Phosphatase 78 U/L (45-117) Aspartate Amino Transf (AST/SGOT) 39 U/L (15-37) Alanine Aminotransferase (ALT/SGPT) 28 U/L (12-78) Total Bilirubin 0.5 MG/DL (0.2-1.0) Sodium Level 143 MEQ/L (136-145) Potassium Level 3.3 MEQ/L (3.5-5.1) Chloride Level 106 MEQ/L (98-107) Carbon Dioxide Level 28.3 MEQ/L (21.0-32.0) Anion Gap 9 MEQ/L (5-15) Estimat Glomerular Filtration Rate 26 ML/MIN (>89) Result Diagram: 03/15/17 0436 03/15/17 0436 Procedures * 03/15/17 -bronchoscopy * 03/12/17 -reintubated * 03/12/17 -medical extubated * 03/09/17 -endotracheal Intubation * 03/09/17 -Bronchoscopy . Assessment and Plan Disease Oriented Problem List: (1) Acute hypoxemic respiratory failure (2) Acute kidney injury (3) PNA (pneumonia) (4) Encephalopathy (5) Cellulitis (6) Protein-calorie malnutrition (7) Physical deconditioning Symptom Scale: (1) Shortness of breath 0-10 Scale: Unable to quantify Comment: Currently intubated on mechanical ventilation. Reintubated 03/12/17. (2) Anxiety 0-10 Scale: Unable to quantify (3) Debility 0-10 Scale: Unable to quantify Comment: Progressive given acute events and prolonged hospitalization. Pertinent Non-Medical Issues Psychosocial: Patient is homeless. Chronic alcohol abuse and polysubstance abuse. On an admission in April, patient stated that he grew up in [place], [place], highest level of education is high school. Patient has as per records. Patient's mother and father . Patient also reported that he had been incarcerated at least 50 times. Spiritual: Unknown. Legal: unknown if advance directives have been completed. Ethical issues impacting care: Patient currently unable to make any medical decisions for himself secondary to current clinical condition, intubated on mechanical ventilation, sedated. Ongoing attempts at contacting next of kin. Important Contacts Lore Darling (sister): [phone] . Prognosis Mr. Cuevas is a 57 years old male with a medical history significant for EtOH use and abuse, tobacco use and abuse and depression. Patient was brought to [facility] ED on 02/23/17 via [place] sugar [place] the 40s. Patient was admitted for management of altered mental status associated with withdrawal delirium tremens and cellulitis to right upper extremity. Clinical course complicated by persistent encephalopathy, acute kidney injury and respiratory failure required intubation and mechanical ventilation. Patient's overall prognosis is poor given the above. . Code Status: No Code Plan * CODE STATUS: No code. Patient's sister Lore Darling electing no CODE STATUS. * HEALTHCARE DECISION-MAKING: Patient is unable to make medical decisions at this time given clinical status -persistent encephalopathy, delirium, polysubstance abuse, no history of alcohol abuse. Patient now endotracheally intubated on mechanical ventilation, sedated. As per [place] Statute, medical proxy decision making falls to majority of siblings as patient is not , no confirmed children, and both parents . Health care proxy decision- making falls to patient's sister Lore Darling as other 3 siblings have opted out (please see palliative care SW note 03/15/17). * GOALS OF CARE: 03/15/17 - Patient's sister Lore acting as healthcare proxy decision maker electing to transition patient to comfort-directed care to include NO code, NO tracheostomy, NO PEG tube and NO additional invasive interventions/procedures. Sister reports that "what is being done at this point would probably be unacceptable to Mr. Cuevas". She asks about transition to comfort measures/compassionate withdrawal life support. * SYMPTOMS:== Pain, multifactorial, secondary to endotracheal intubation, cellulitis to right arm, bedrest. Currently on Fentanyl gtt. patient appears comfortable. == Shortness of breath, secondary to acute respiratory failure. Currently intubated on mechanical ventilation. Reintubated 03/12/17. == Debility, secondary to acute illness and prolonged hospitalization. Likely to continue to worsen. Overall poor prognosis for a meaningful recovery. * Exhibit sign by patient's sister and palliative care consulting physician. Case discussed with Dr. Boateng. * Palliative care will continue to follow up for further clarification of goals of care as patient's clinical course continues to evolve. . Time Spent Total Floor Time (mins): 48 (Total time to include review of medical records, physical exam, goals of care conversation with patient's sister, case discussion with Dr. Boateng and bedside RN.) >50% Counseling/Coord of Care: Yes Attestation To help prompt me to consider important information that might be impacting today's encounter and assessment, information from prior notes written by myself or my colleagues may have been "brought forward" into today's note. My signature on this note, however, is an attestation that I personally performed the exam, history, and/or decision-making noted today, and, unless otherwise indicated, the interactions with patient, family, and staff as well as the review of records all occurred today. I also attest that the listed assessment and stated plan reflect my best clinical judgment today based on the combination of historical information, prior notes, and today's exam/ interactions. When time spent is documented, it refers only to time spent today by the signer, or if indicated, combined time spent today by collaborating physician/nurse practitioner. . Gini Cummins Mar 15, 2017 16:36
[2017-03-15 18:58] LABS: BRONCHOALVEOLAR LAVAGE WBC 2318 /MM3
[2017-03-15 18:59] LABS: BRONCHOALVEOLAR LAVAGE RBC 930 /MM3; BRONCHOAVEOLAR LYMPHOCYTES 1 %; BRONCHOAVEOLAR NEUTROPHILS 99 %
[2017-03-15] MEDS: RESP: ALBUTEROL 2.5 MG/IPRATROPIUM 0.5 MG NEB (SCH) NEB ×2 (19:44→23:30)
[2017-03-15] MEDS: RESP: ACETYLCYSTEINE 20% 30 ML NEB NEB SCH ×2 (20:00→23:46)
[2017-03-16] VITALS (17 sets, daily range): BP systolic 91–125; BP diastolic 51–74; PULSE 90–107; RESP 18–28; TEMP 98.6–100.2; O2SAT 91–100
[2017-03-16] MEDS: RESP: ALBUTEROL 2.5 MG/IPRATROPIUM 0.5 MG NEB (SCH) NEB ×5 (03:26→20:23)
[2017-03-16] MEDS: RESP: ACETYLCYSTEINE 20% 30 ML NEB NEB SCH ×5 (03:46→20:23)
[2017-03-16 05:43] LABS: BICARBONATE 30.8 MEQ/L (21.0-32.0); MAGNESIUM 2.1 MG/DL (1.5-2.5)
[2017-03-16] MEDS: ARTIFICIAL TEARS OPTH SOLN 15 ML BTL EACH EYE SCH ×3 (06:00→21:41)
[2017-03-16] MEDS: CHLORHEXIDINE 0.12% (ORAL KIT) 15 ML CUP MT SCH ×2 (07:23→21:41)
--- NOTE | 2017-03-16 08:17 | HHI.CCPN ---
Subjective Remarks/Hospital Course This is a 57-year-old male that was found down and admitted to this hospital 02/23/2017. Urine tox screen revealed patient was positive for benzodiazepines and cocaine at that time. Since admission the patient has been on a [facility] protocol, neurology has been consulted Dr. Wayne, with continued supportive care. Over the last 48 hours the patient was noted to have elevation in his creatinine with a significant decrease in urine output acute renal failure nephrology was consulted the patient continues on gentle diuresis and received 80 mg of Lasix IV this afternoon and is currently on sodium bicarbonate infusion at 110 cc/an hour. Due to the patient's respiratory insufficiency, and altered mental status concern for possible continued respiratory decompensation the patient was transferred to the ICU, and critical care was consulted for management. Upon entering the patient's room the patient was noted to be lethargic having received 4 mg of Ativan in the last 4 hours, but opens eyes to sternal rub. The patient was noted to have O2 saturation of 95% on O2 via nasal cannula at 5 L with no accessory respiratory efforts. Stat ABG was ordered pending, to rule out CO2 narcosis. Since admission to ICU the patient was noted to diuresis of 700 cc. 03/03: Afebrile. The patient did not receive any Ativan since 3 PM on 03/02/17. The patient rested well overnight, eventually waking and responding. This a.m. the patient's noted to be sitting up in bed, alert and responsive. Librium has been added to medication regimen for alcohol withdrawal. Noted to be oriented to date of unable to provide name or place at this time. Essential tremors, fine tremors noted. The patient severely weak and unable to feed self without assistance. The patient's diet was advanced to regular diet, tolerating well, 100% consumption. PO meds were held since admission to ICU secondary to lethargy, all by mouth meds resumed this a.m.. The patient currently is compliant following commands, inappropriate responses, with noted incomprehensible words, language at times. Patient is noted to be very weak. Nasal cannula O2 has been weaned down to approximately 3 L, the patient appears in no respiratory distress. Subjective: 03/09: Reconsulted secondary acute respiratory failure. Chest x-ray earlier in the morning revealed collapse versus large pleural effusion left side. Patient oxygen requirements had increased from 4 L to a nonrebreather mask. CT thorax revealed likely mucous plugging/collapsed lung left side. Small to moderate left pleural effusion. Patient was combative upon arrival ICU in place in soft restraints. Due to mental status/mucous plugging patient was electively intubated using 20 mg etomidate and 50 mg, rocuronium. Patient was bronched which revealed thick white mucous plugging in the left and right mainstem. These were lavaged to left upper lobe/lingula and left lower lobe, right upper middle and lower lobes. Samples were sent see orders. Currently sedated with propofol and fentanyl drips. 03/10: Tonic seizures today when propofol stopped. Seizures ceased with propofol bolus. Left pneumonia persists but improved aeration after bronch . 03/11: Gas exchange acceptable. Continues to have tonic "seizures" when propofol is lightened. EEG 03/10 states no seizures but we will repeat EEG again today with stimulation and off propofol. Can't extubate until this "seizure" activity is resolved. Vomited tube feeds, will reduce and add reglan. 03/12: Off sedation tolerating CPAP even though intermittently apneic. Appears to follows commands but weekly on the upper extremity. No obvious seizures. EEG negative for seizure 03/11/17. Creatinine slightly improved to 2.8 from 3 03/13: Failed extubation on 03/12. Currently sedated, orally intubated on mechanical ventilation. Has thick copious respiratory secretions per REPAIR CAMERAMAN. 03/14: Remains sedated, orally intubated on mechanical ventilation. Feeling C Pap trials. Not following commands on lightening sedation. 03/15: Remains intubated encephalopathy. Left lower lobe infiltrate again indicating probable mucous plugging/collapse. Palliative care meeting with family today. I recommend tracheostomy and PEG tube placement. D/W palliative care team 03/16: Off sedation since yesterday 5PM. Eyes open spontaneously. Following commands bilateral upper extremity, he squeezes with both hands. Discussed with Dr. Kingston. Will continue weaning attempt with plan for wean to extubate. s/p bronchoscopy yesterday, with re expansion of L lung. Has moderate secretions. I have updated Lore Darling (sister) about improvement in neuro exam. See below Objective Vital Signs Date Time Temp Pulse Resp B/P (MAP) Pulse Ox O2 Delivery O2 Flow Rate FiO2 03/16/17 06:00 103 03/16/17 04:00 98.6 18 95/59 (71) 99 03/16/17 04:00 50 03/16/17 03:29 Ventilator 03/12/17 18:00 5.00 Intake and Output 03/16/17 03/16/17 03/17/17 08:00 16:00 00:00 Intake Total 426 ml Output Total 300 ml Balance 126 ml Result Diagram: 03/15/17 0436 03/16/17 0455 Imaging Last Impressions Shoulder X-Ray 03/05/17 0000 Signed Impressions: Service Date/Time: Sunday, March 05, 2017 20:57 - CONCLUSION: No acute disease. Rick Sanford MD Abdomen/Pelvis CT 03/04/17 0000 Signed Impressions: Service Date/Time: Saturday, March 04, 2017 10:31 - CONCLUSION: 1. There is no hydronephrosis or renal abnormality to explain the renal failure. However, there is subtle high density stranding along the medial and upper pole of the right kidney. Suggest followup CT to assess for change. 2. Abnormal mass arising from or abutting the spleen in the left upper quadrant measuring up to 7.5 cm. It contains a small amount of calcification. Suggest correlating with any prior imaging study that could offer additional characterization. If none are available suggest followup imaging to confirm stability and consider contrast enhanced CT or MRI for further characterization when patient condition permits. 3. Small bilateral pleural effusions, left larger than right, with associated compressive atelectasis. 4. Severe coronary artery calcification. Kilo Coulter MD Chest X-Ray 03/02/17 0000 Signed Impressions: Service Date/Time: Thursday, March 02, 2017 08:18 - CONCLUSION: Increasing consolidative changes left base. Nasir Mack MD FACR Renal Ultrasound 02/27/17 0000 Signed Impressions: Service Date/Time: Monday, February 27, 2017 20:36 - CONCLUSION: 1. Mildly dilated left renal collecting system. Kidneys normal in size. Trace free fluid. Ruy Hussein MD Brain MRI 02/25/17 0000 Signed Impressions: Service Date/Time: Saturday, February 25, 2017 12:37 - CONCLUSION: Atrophy, periventricular changes without evidence for acute infarction. Nasir Mack MD FACR Head CT 02/23/17 0000 Signed Impressions: Service Date/Time: Thursday, February 23, 2017 07:38 - CONCLUSION: No significant change has occurred. Maximus Pavon MD Objective Remarks GENERAL: 57-year-old male, Awake on vent, eyes open spontaneously. Follows commands bilateral upper extremity SKIN: Warm and dry. Clean gauze dressing right forearm HEAD: Atraumatic. Normocephalic. EYES: Pupils equal and round around 2 mm bilaterally and reactive. No scleral icterus. No injection or drainage. ENT: No nasal bleeding or discharge. Mucous membranes pink and moist. Orally intubated. NECK: Trachea midline. CARDIOVASCULAR: RRR. S1, S2 no S4. Without murmur. No JVD. RESPIRATORY: Orally intubated on mechanical ventilation, Diminished breath sounds left lung thomas. No wheezing. Moderate ET secretions GASTROINTESTINAL: Abdomen soft, non-tender, nondistended. Active bowel sounds appreciated MUSCULOSKELETAL: Extremities without without significant peripheral edema. No obvious deformities. Right forearm dressing NEUROLOGICAL: Eyes are open spontaneously, follows commands bilateral upper extremities by squeezing. Moves all extremities spontaneously Date of Insertion: Feb 23, 2017 A/P Assessment and Plan Neuro/Psych: Encephalopathy/Delirium most likely metabolic Admission with EtOH withdrawal - likely completed Polysubstance abuse including cocaine and benzodiazepines Polyneuropathy of critical illness Off all sedation since 5 PM 03/15/17. Improving neuro exam. Following commands today 03/16/17 Patient is followed by Dr. Rogel neurology. EEG's reveal moderate encephalopathy no epileptiform activity MRI negative for acute findings Previously on Seroquel 25 mg at night and Haldol when necessary-Haldol discontinued 03/15/17 Librium decreased from 50mg BID to 25 mg twice a day on 03/12-DCd 03/15/17 Seizure precautions Seizures 03/10. Continue thiamine 100 mg daily Respiratory: Acute hypoxemic respiratory failure secondary to aspiration Recurrent left lower lobe collapse/mucus plugging s/p Bronchoscopy 03/15. L main bronchus had mucus plugging. PRVC 16/500/40. Daily breathing trials. Ventilator bundle. Albuterol/ipratropium aerosols every 4 hours with albuterol aerosols every 2 hours.PRN hypertonic saline aerosols every 4 hours 5 days to thin secretions. Mucomyst every [address] thorax from 03/09 revealed collapse left upper/lingula lobes with significant secretions left main bronchus. s/p bronch Improved aeration 03/10 Cardiovascular: Hypertension Currently on amlodipine 10 mg daily, clonidine 0.1 mg 3 times a day and metoprolol 5 mg by mouth twice a day for hypertension, with holding parameters Maintain MAP > 65 mmHG Renal: Acute kidney injury secondary to ATN Nephrology following Dr. Martinez. Creat worsening 2.6 to 2.9. UO 650 ml in 24 hours IV hydration with NS, monitor CMP daily. Give 500 ml NS bolus Accurate I's and O's, Monitor urine output No signs of hydronephrosis on renal imaging Urine eosinophils negative FEN/GI: Mild protein calorie malnutrition Hyperkalemia- Hep C Continue tube feeds and advanced to goal as tolerated Lansoprazole for GI prophylaxis Docusate sodium senna 1 tablet twice a day for bowel regimen Heme/ID: Macro Anemia Thrombocytopenia Pneumonia F/U BAL 03/15 On previous cultures in BAL have been negative except 02/23 coag negative staph which is contamination Currently on cefepime-continue, DCd Flagyl and azithromycin renally dosed since 03/09/17-03/15/17 Endocrine: Sliding-scale insulin to maintain euglycemia/low regimen with NovoLog every 6 hours Prophylaxis: GI Prophylaxis Lansoprazole DVT Prophylaxis -- SCDs/heparin subcutaneous Lines: Peripheral IVs providing adequate access at this time. Palliative care team following to assist with deciding goals of therapy. Overall impression: Critically ill with new onset recurrent seizures and hypoxemic respiratory failure. Left lung more well aerated after bronchoscopy. Failed extubation on 03/12 and required reintubation. DNR but continue aggressive care Level 3 I discussed and updated Lore Darling (sister) over the phone: [phone]. I explained to her improvement in neurological status. She is agreeable to continued care since there is improvement, and she does not want any other invasive procedures at this time and if there is any further clinical deterioration she wants to pursue comfort measures Grace Boateng MD Mar 16, 2017 08:17
--- NOTE | 2017-03-16 08:48 | HHI.PR ---
Objective Vital Signs Date Time Temp Pulse Resp B/P (MAP) Pulse Ox O2 Delivery O2 Flow Rate FiO2 03/16/17 08:12 100 50 03/16/17 06:00 103 03/16/17 04:00 98.6 101 18 95/59 (71) 99 03/16/17 04:00 101 03/16/17 04:00 50 03/16/17 03:29 100 Ventilator 03/16/17 03:29 100 50 03/16/17 02:00 93 03/16/17 00:00 98.8 97 18 98/51 (67) 99 03/16/17 00:00 95 03/16/17 00:00 50 03/15/17 23:25 99 50 03/15/17 22:00 90 03/15/17 20:00 100 Mechanical Ventilator 55 03/15/17 20:00 119 03/15/17 20:00 50 03/15/17 20:00 98.7 119 20 108/75 (86) 97 03/15/17 19:49 96 Ventilator 03/15/17 19:45 95 50 03/15/17 18:00 110 03/15/17 16:36 96 50 03/15/17 16:30 104/72 (83) 03/15/17 16:00 50 03/15/17 16:00 75 03/15/17 16:00 99.4 98 18 69/46 (54) 96 03/15/17 15:00 100 100 03/15/17 14:00 98 03/15/17 12:00 98.6 104 22 140/71 (94) 93 03/15/17 12:00 104 03/15/17 12:00 50 03/15/17 11:30 50 03/15/17 11:29 99 50 03/15/17 10:00 97 I/O 03/15/17 03/15/17 03/15/17 03/16/17 03/16/17 03/16/17 07:00 15:00 23:00 07:00 15:00 23:00 Intake Total 790 ml 450 ml 816 ml 426 ml Output Total 400 ml 0 ml 350 ml 300 ml Balance 390 ml 450 ml 466 ml 126 ml IV Total 200 ml 450 ml 243 ml Tube Feeding 590 ml 413 ml 366 ml Other 160 ml 60 ml Output Urine Total 400 ml 350 ml 300 ml Tube Feeding Residual Discard 0 ml 0 ml # Bowel Movements 0 2 2 Result Diagram: 03/15/17 0436 03/16/17 0455 Objective Remarks arouses pos rxt to threat not follwing commands for me but did for dr garcia Assessment and Plan Assessment and Plan imp 2 eeg neg during jerks he is improving neurowise and i would hold sedatives and should improve neurowise off sedatives i would hold withdrawal as has good chance for recovery neurowise no jerking now Raul iKngston MD Mar 16, 2017 08:48
[2017-03-16] MEDS: SODIUM CHLORIDE 0.9% FLUSH 10 ML FLUSH IV FLUSH SCH ×2 (09:00→21:00)
--- NOTE | 2017-03-16 09:18 | RADRPT ---
EXAM DATE/TIME: 03/16/2017 08:17 [facility] COMPARISON: CHEST SINGLE AP, March 15, 2017, 15:27. INDICATIONS : Recheck respiratory status MEDICAL HISTORY : Hepatitis C. Myocardial infarction. Seizures, athritis, depression. SURGICAL HISTORY : None. ENCOUNTER: Initial ACUITY: 3 weeks PAIN SCORE: 0/10 LOCATION: Bilateral chest FINDINGS: ET tube remains above the and nasogastric tube to the midline and into the stomach. Left basilar cons olidation persists with volume loss in the left lung field. CONCLUSION: Stable chest Abraham Luz MD on March 16, 2017 at 9:16 Board Certified Radiologist. This report was verified electronically.
[2017-03-16] MEDS: CEFEPIME INJ 2,000 MG in SODIUM CHLORIDE 0.9% INJ 100 ML IV SCH (10:09)
[2017-03-16] MEDS: MULTIVITAMIN TAB PO SCH (10:10)
[2017-03-16] MEDS: THIAMINE HCL 100 MG TAB PO SCH (10:10)
[2017-03-16] MEDS: LANSOPRAZOLE SOLUTAB 30 MG TAB NG SCH (10:10)
[2017-03-16] MEDS: BENEPROTEIN POWDER 1 PACK G-TUBE SCH ×3 (10:10→19:45)
[2017-03-16] MEDS: METOPROLOL TARTRATE 100 MG TAB PO SCH ×2 (10:10→21:41)
[2017-03-16] MEDS: HEPARIN SODIUM - SQ 10,000 UNITS/ML VIAL SQ SCH ×2 (10:17→23:51)
[2017-03-16] MEDS: SODIUM CHLOR 0.9% 1000 ML INJ 1,000 ML IV SCH ×3 (10:17→22:01)
--- NOTE | 2017-03-16 13:26 | HHI.NPPN ---
Subjective History of Present Illness 57-year-old male with the alcohol withdrawal, altered mental status, acute renal failure Additional Remarks On ventilator Objective Data Data Vital Signs Date Time Temp Pulse Resp B/P (MAP) Pulse Ox O2 Delivery O2 Flow Rate FiO2 03/16/17 11:37 93 45 03/16/17 08:12 100 50 03/16/17 06:00 103 03/16/17 04:00 98.6 101 18 95/59 (71) 99 03/16/17 04:00 101 03/16/17 04:00 50 03/16/17 03:29 100 Ventilator 03/16/17 03:29 100 50 03/16/17 02:00 93 03/16/17 00:00 98.8 97 18 98/51 (67) 99 03/16/17 00:00 95 03/16/17 00:00 50 03/15/17 23:25 99 50 03/15/17 22:00 90 03/15/17 20:00 100 Mechanical Ventilator 55 03/15/17 20:00 119 03/15/17 20:00 50 03/15/17 20:00 98.7 119 20 108/75 (86) 97 03/15/17 19:49 96 Ventilator 03/15/17 19:45 95 50 03/15/17 18:00 110 03/15/17 16:36 96 50 03/15/17 16:30 104/72 (83) 03/15/17 16:00 50 03/15/17 16:00 75 03/15/17 16:00 99.4 98 18 69/46 (54) 96 03/15/17 15:00 100 100 03/15/17 14:00 98 -: 03/15/17 0436 03/16/17 0455 Microbiology 03/15/17 Fungal Smear - Final, Resulted NO FUNGAL ELEMENTS SEEN. 03/15/17 Fungal Culture, Resulted Pending 03/15/17 Acid Fast Stain, Received Pending 03/15/17 Mycobacterial Culture, Received Pending 03/15/17 Gram Stain - Final, Resulted 03/15/17 Bronchial Culture - Preliminary, Resulted NO GROWTH IN 24 HOURS. Physical Exam General Appearance: Malnourished Eyes Eye Exam: Pupils Equal Neck Neck Exam: Neck Supple Pulmonary Resp Exam: Crackles, Rhonchi, Diminished Breath Sounds Cardiology CV Exam: Regular, Normal Sinus Rhythm Gastrointestinal/Abdomen GI Exam: Soft, Non-Tender, Bowel Sounds Present Musculoskeletal MS Exam: Unable to Ambulate MS Remarks left shoulder sub laxation ? dislocated Extremeties Extremities Exam: No Edema Assessment/Plan Problem List: (1) SAQIB (acute kidney injury) ICD Codes: N17.9 - Acute kidney failure, unspecified Status: Acute Plan: Acute renal failure acute tubular necrosis with drug use Non oliguric, creatinine is stable at 2.67 replace K Hepatitis C positive Ammonia not high s/p bronchoscopy with removal of mucous plug self extubated FU FIDEL TB test Creatinine is increased to 2.9 getting IVF and remains nonoliguric possible extubation K OK CT scan abdominal reviewed Subtle high density stranding medial/upper right kidney. Abnormal mass arising from/abutting spleen LUQ measuring up to 7.5 cm with small amount of calcification (2) Alcohol withdrawal ICD Codes: F10.239 - Alcohol dependence with withdrawal, unspecified Status: Chronic Plan: Patient remained in altered mental status (3) Hypertension ICD Codes: I10 - Essential (primary) hypertension Status: Resolved Plan: Patient's blood pressure was labile continue to monitor Problem Qualifiers (1) Alcohol withdrawal: Qualified Codes: F10.231 - Alcohol dependence with withdrawal delirium (2) Hypertension: Qualified Codes: I10 - Essential (primary) hypertension Daryl Martinez MD Mar 16, 2017 13:26
--- NOTE | 2017-03-16 13:35 | HHI.FPPN ---
Subjective Remarks Mr. Cuevas was afebrile with mild tachycardia overnight (HR 90's-100's). BP with MAP in low 70's. Per EMR review, patient with positive I/O balance for past several days. Patient alert, would orient/look at providers, no verbal responses. (Robles Pollock MD, R3) Objective Vitals Vital Signs Date Time Temp Pulse Resp B/P (MAP) Pulse Ox O2 Delivery O2 Flow Rate FiO2 03/16/17 11:37 93 45 03/16/17 08:12 100 50 03/16/17 06:00 103 03/16/17 04:00 98.6 101 18 95/59 (71) 99 03/16/17 04:00 101 03/16/17 04:00 50 03/16/17 03:29 100 Ventilator 03/16/17 03:29 100 50 03/16/17 02:00 93 03/16/17 00:00 98.8 97 18 98/51 (67) 99 03/16/17 00:00 95 03/16/17 00:00 50 03/15/17 23:25 99 50 03/15/17 22:00 90 03/15/17 20:00 100 Mechanical Ventilator 55 03/15/17 20:00 119 03/15/17 20:00 50 03/15/17 20:00 98.7 119 20 108/75 (86) 97 03/15/17 19:49 96 Ventilator 03/15/17 19:45 95 50 03/15/17 18:00 110 03/15/17 16:36 96 50 03/15/17 16:30 104/72 (83) 03/15/17 16:00 50 03/15/17 16:00 75 03/15/17 16:00 99.4 98 18 69/46 (54) 96 03/15/17 15:00 100 100 03/15/17 14:00 98 I/O 03/15/17 03/15/17 03/15/17 03/16/17 03/16/17 03/16/17 07:00 15:00 23:00 07:00 15:00 23:00 Intake Total 790 ml 450 ml 816 ml 426 ml Output Total 400 ml 0 ml 350 ml 300 ml Balance 390 ml 450 ml 466 ml 126 ml IV Total 200 ml 450 ml 243 ml Tube Feeding 590 ml 413 ml 366 ml Other 160 ml 60 ml Output Urine Total 400 ml 350 ml 300 ml Tube Feeding Residual Discard 0 ml 0 ml # Bowel Movements 0 2 2 (Robles Pollock MD, R3) Result Diagram: 03/15/17 0436 03/16/17 0455 Imaging Last Impressions Chest X-Ray 03/16/17 0000 Signed Impressions: Service Date/Time: Thursday, March 16, 2017 08:17 - CONCLUSION: Stable chest Abraham Luz MD Abdomen X-Ray 03/13/17 0000 Signed Impressions: Service Date/Time: Monday, March 13, 2017 13:04 - CONCLUSION: 1. The tip of the NG tube is just through the GE junction and into the stomach. Cliff Mack MD Brain MRI 03/10/17 0000 Signed Impressions: Service Date/Time: Friday, March 10, 2017 15:01 - CONCLUSION: No acute infarct or other acute intracranial abnormality. Atrophy and chronic white matter changes are again noted. Kilo Rowell MD Chest CT 03/09/17 0000 Signed Impressions: Service Date/Time: Thursday, March 09, 2017 04:59 - CONCLUSION: 1. Marked volume loss in the left hemithorax with near-complete collapse of the left lower lobe/lingula. There is still some aeration in the left upper lung. Some of this is due to the moderate sized left-sided effusion although there may be element of airway obstruction/mucus plugging as well. 2. Small right-sided effusion with become atelectatic changes in the right base. 3. Patchy biapical airspace disease.. Tone Henry MD Shoulder X-Ray 03/05/17 0000 Signed Impressions: Service Date/Time: Sunday, March 05, 2017 20:57 - CONCLUSION: No acute disease. Rick Sanford MD Abdomen/Pelvis CT 03/04/17 0000 Signed Impressions: Service Date/Time: Saturday, March 04, 2017 10:31 - CONCLUSION: 1. There is no hydronephrosis or renal abnormality to explain the renal failure. However, there is subtle high density stranding along the medial and upper pole of the right kidney. Suggest followup CT to assess for change. 2. Abnormal mass arising from or abutting the spleen in the left upper quadrant measuring up to 7.5 cm. It contains a small amount of calcification. Suggest correlating with any prior imaging study that could offer additional characterization. If none are available suggest followup imaging to confirm stability and consider contrast enhanced CT or MRI for further characterization when patient condition permits. 3. Small bilateral pleural effusions, left larger than right, with associated compressive atelectasis. 4. Severe coronary artery calcification. Kilo Coulter MD Renal Ultrasound 02/27/17 0000 Signed Impressions: Service Date/Time: Monday, February 27, 2017 20:36 - CONCLUSION: 1. Mildly dilated left renal collecting system. Kidneys normal in size. Trace free fluid. Ruy Hussein MD Head CT 02/23/17 0000 Signed Impressions: Service Date/Time: Thursday, February 23, 2017 07:38 - CONCLUSION: No significant change has occurred. Maximus Pavon MD Objective Remarks GENERAL: male, lying in bed, eyes open but sedated and unresponsive; no obvious distress SKIN: Bilateral upper extremities with multiple well-healing scabs HEENT: ETT in place; OGT in place. Pupils grossly symmetrical CARDIOVASCULAR: RRR without appreciable murmurs. grossly normal perfusion. No edema RESPIRATORY: normal rate; clear anterior breath sounds bilaterally, without wheezing GASTROINTESTINAL: Abdomen soft, non-tender, nondistended; + bowel sounds : Not assessed today MUSCULOSKELETAL: LUE with edema NEURO: Awake, will track providers as if alert. Not responsive to brief attempts at verbal commands. No obvious facial asymmetry. Peripheral motor/ sensory function not assessed due to lack of responsiveness to questioning/ command. He does move his arms spontaneously but not purposefully. (Robles Pollock MD, R3) Date of Insertion: Feb 23, 2017 (Robles Pollock MD, R3) A/P Assessment and Plan 57-year-old white male with past medical history of alcohol withdrawal presented to the ED with severe hypoglycemia and altered mental status; patient has had progressively worsening renal function and is currently being followed for renal failure and continued altered mental status. Pt recently required intubation and sedation for respiratory distress and CT with opacification of the left lung concerning for left lung collapse in the context of mucus plugging , which was removed on 03/09. -Pt intubated and sedated on propofol/fentanyl as managed by artificial insemination technician 03/10-03/12 - Pt having seizure-like activity - neuro consulted (Dr Kingston), stat Brain MRI w/o contrast, stat EEG, and Keppra 1g IV bolus, Lactate 1.9 today vs 1.5 yesterday. Repeat EEG still negative. Not having true seizures 03/12 - present: Pt ex-tubated, had increasing O2 requirement, and was subsequently re-intubated. Patient has remained mostly unresponsive with encephalopathy; sedation weaned 03/15 . Palliatice care discussed with family; DNR status recommended. Will attempt extubation. Discharge Planning Pending workup for declining renal function, AMS, weaning off vent Discussed plan of care with rifle case repairer and palliative care public health social worker. The palliative care public health social worker in contact with all of the patient's siblings; made DNR/DNI (Robles Pollock MD, R3) Attending Attestation Patient seen and examined. Case reviewed and discussed with the resident team. Agree with plan of care as discussed with me and documented in the resident note. it is wonderful that his family is more involved in his care and making decisions at this point (Betzaida Connolly MD) Problem List: (1) Altered mental status ICD Codes: R41.82 - Altered mental status, unspecified Status: Acute Plan: Patient awake with eyes open but not responsive to commands. -Neuro consulted- -Continue Keppra -OK to stop sedatives -EEG negative; jerking not suspected to be seizure activity -Treat agitation -CIWA tapered -Stopped Librium, stopped Ativan -Haldol 1mg PRN q8hrs for agitation/psychosis -Holding Seroquel 25 mg PO qhs due to being intubated/sedated. 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 -Continue supportive treatment -Recommend judicious benzodiazepine usage--benzos stopped -May benefit from some type of extended care facility -Occupational therapy recommended OT at rehabilitation (PT recommended OT) -ST consulted -regular and thin liquids per ST. patient is dependent with total help required. -Continue tube feeds/IVF -NS at 100ml/hr -Seizure precautions Impression: AMS initially suspected secondary to alcoholism; persistent UDS positive for Benzos and Cocaine Brain MRI on 02/25- atrophy, periventricular changes without evidence for acute infarction Head CT on admission- no significant change EEG 03/12- diffuse slowing with medication effect and diffuse encephalopathy without focal abnormalities. No seizure activity; jerking episodes witnessed w/ o seizure activity RPR nonreactive CMP on admission with mild hyponatremia (134), transaminase elevations, calcium of 8.1 Hep panel - Hep C reactive Thiamine level high at 325 Ammonia- normal/high (2) Respiratory disease ICD Codes: J98.9 - Respiratory disorder, unspecified Plan: Impression: Progressive worsening of respiratory status 03/09 requiring move to ICU and intubation/sedation and bronchial lavage to remove mucous plugs from both left and right mainstem bronchi. CXR 03/10 with persistent L basilar consolidation/effusion. Improving aeration in right base. Stable position of life support tubes CXR 03/16 stable Bronchial washing cultures: Fungal culture with yeast AFB negative; culture pending Bronchial bacterial culture with light growth of normal ariela -Continue CPAP, O2 per CC/respiratory therapy and attempt to extubate (3) PNA (pneumonia) ICD Codes: J18.9 - Pneumonia, unspecified organism Status: Acute Plan: -Continue Cefepime 2g IV renally dosed s/p Azithromycin and Flagyl 03/09-03/15 -s/p Solumedrol 40mg IV BID -Continue Duonebs q4h -Continue O2 as needed Impression: Patient with symptoms of cough and intermittent hypoxia to low 90's requiring O2 supplementation; worsening of respiratory disease 03/09 with subsequent intubation and bronchoscopy w/ washing. CXR 03/02 with increasing consolidative changes in the left base. CXR 03/10 with persistent L basilar consolidation/effusion. Improving aeration in right base. Stable position of life support tubes CXR 03/16 stable Initial blood cultures + for staph hominis; subsequently negative 02/26, 03/02 Sputum cultures not obtained Urine Legionella, strep pneumo negative (4) SAQIB (acute kidney injury) ICD Codes: N17.9 - Acute kidney failure, unspecified Status: Acute Plan: -Nephrology consulted: Diagnosed with Acute renal failure acute tubular necrosis with drug use, Non oliguric, creatinine is slightly worse. -Changed IVF to NS at 100ml/hr -Monitor BMP -CT abdomen/pelvis- No hydronephrosis. Subtle high density stranding medial/ upper right kidney. Abnormal mass arising from/abutting spleen LUQ measuring up to 7.5 cm with small amount of calcification. Discussed with radiologist. Likely from previous trauma. No further workup indicated. Impression: Patient with SAQIB. Creatinine trended: 0.86 on admission Suspect intrinsic cause as Cr elevation refractory to fluid supplementation, BUN /Cr ratio <20/1, and catheterized Previously on Vancomycin-> discontinued Renal US 02/27 with mild L hydronephrosis; normal kidneys No urine eosinophils Urine random Cr 41.6 Urine random sodium 97 TB testing negative FIDEL negative 03/16- Cr stable at 2.6-2.95 (5) Hypertension ICD Codes: I10 - Essential (primary) hypertension Status: Resolved Plan: Impression: BP with MAP in upper 60's-80's. -Continue Amlodipine 10mg PO daily -Will hold Hydralazine 25 mg q12h since hypotensive -Metoprolol 100 mg q12h -Clonidine 0.1mg TID -Clonidine 0.1 mg q6h PRN For SBP >/= 180, DBP >/= 100 (6) FEN Status: Acute Plan: Fluids: none Electrolytes: Monitor and replace per protocol Nutrition: Tube feeds GI PPx: Lansoprazole 30 mg NG/day VTE prophylaxis: Heparin 5000 units every 12 hours (Robles Pollock MD, R3) Problem Qualifiers (1) Altered mental status: Qualified Codes: R41.0 - Disorientation, unspecified (2) PNA (pneumonia): Qualified Codes: J18.9 - Pneumonia, unspecified organism (3) Hypertension: Qualified Codes: I10 - Essential (primary) hypertension Robles Pollock MD, R3 Mar 16, 2017 13:35 Betzaida Connolly MD Mar 16, 2017 15:54
--- NOTE | 2017-03-16 14:41 | HHI.HCPN ---
Reason for visit a. To assist with evaluation and management of symptoms including: Shortness of breath, debility b. To assist medical decision maker(s) with: better understanding of current medical conditions; weighing benefits/burdens of medical treatment options; making medical treatment decisions. (Ana Posadas) Subjective/Interval History Mr. Cuevas is a 57 years old male with a medical history significant for EtOH use and abuse, tobacco use and abuse and depression. Patient was brought to [facility] ED on 02/23/17 via [place] the 40s. Patient was admitted for management of altered mental status associated with withdrawal delirium tremens and cellulitis to right upper extremity. Clinical course complicated by acute kidney failure, persistent altered mental status and respiratory failure requiring intubation and mechanical ventilation. Palliative care consulted for further clarifications of goals of care. Patient seen in ICU, remains intubated and off sedation since 03/15/17 at 1700hrs. Vent settings CPAP 5/15/45%, O2 saturation low 90s-100. Chest x-ray today status post bronchoscopy revealing stable chest. Patient awake, eyes open -tracking and followed commands with bilateral upper extremities. Laboratory workup revealing sodium 143, potassium 4.0, BUN/creatinine 39/2.95, random glucose 115. Patient is afebrile. SBP high 90s-low 100s. Telephone conversation with patient's sister Lore Darling. Medical status update provided. Sister agreed to continue with current medical care, and if possible allow medical extubation. Sister also reinforced keeping patient as DNR and not to pursue any other invasive procedures in case of any decline in clinical condition. Case discussed and bedside RN . . Family/friend interactions Telephone conversation with patient`s sister.See interval note. . (Ana Posadas) Advance Directives Advance Directive Specifics Health Care Surrogate(s): Unknown at this time if advance directives has been completed, no records in file. Palliative care has been able to communicate with patient`s siblings and his sister opted to serve as his health care proxy. . (Ana Posadas) Objective Vital Signs Date Time Temp Pulse Resp B/P (MAP) Pulse Ox O2 Delivery O2 Flow Rate FiO2 03/16/17 11:37 93 45 03/16/17 08:12 100 50 03/16/17 06:00 103 03/16/17 04:00 98.6 101 18 95/59 (71) 99 03/16/17 04:00 101 03/16/17 04:00 50 03/16/17 03:29 100 Ventilator 03/16/17 03:29 100 50 03/16/17 02:00 93 03/16/17 00:00 98.8 97 18 98/51 (67) 99 03/16/17 00:00 95 03/16/17 00:00 50 03/15/17 23:25 99 50 03/15/17 22:00 90 03/15/17 20:00 100 Mechanical Ventilator 55 03/15/17 20:00 119 03/15/17 20:00 50 03/15/17 20:00 98.7 119 20 108/75 (86) 97 03/15/17 19:49 96 Ventilator 03/15/17 19:45 95 50 03/15/17 18:00 110 03/15/17 16:36 96 50 03/15/17 16:30 104/72 (83) 03/15/17 16:00 50 03/15/17 16:00 75 03/15/17 16:00 99.4 98 18 69/46 (54) 96 03/15/17 15:00 100 100 03/15/17 14:00 98 Intake & Output 03/16/17 03/16/17 07:00 19:00 Intake Total 426 ml Output Total 300 ml Balance 126 ml Tube Feeding 366 ml Other 60 ml Output Urine Total 300 ml # Bowel Movements 2 Physical Exam CONSTITUTIONAL/GENERAL: This is an ill looking male who looks older than stated age, orally intubated on CPAP. TUBES/LINES/DRAINS: ETT, OGT, PIVs, Hall catheter, SCDs, bilateral soft wrist restraints. SKIN: Rash/ecchymosis to RUE. Scattered ecchymoses on upper extremities. Open areas/scabs to right upper extremity. Scattered scabs on face. Skin temperature appropriate. HEAD: Atraumatic. Normocephalic. EYES: Pupils equal and round and reactive. No scleral icterus. No injection or drainage. Conjunctival erythema. ENT: Nose without bleeding or purulent drainage. Moist oral mucosa. Orally intubated. NECK: Trachea midline. Supple, nontender. CARDIOVASCULAR: Regular rate- sinus tachycardic, rhythm without murmurs, gallops , or rubs. No JVD. Peripheral pulses symmetric. RESPIRATORY/CHEST: Symmetric, unlabored respirations. Coarse breath sounds bilaterally. GASTROINTESTINAL: Abdomen soft, non-tender, nondistended. Bowel sounds present. GENITOURINARY: Without palpable bladder distension. Hall catheter in place with moderate amount of straw colored urine. MUSCULOSKELETAL: Extremities without clubbing, cyanosis. Edema to right forearm and bilateral lower extremities . No mottling or clubbing. NEUROLOGICAL: Patient orally intubated on mechanical ventilation. Eyes open, tracking. Following simple commands with bilateral upper extremities. PSYCHIATRIC: Unable to assess at this time due to clinical condition. Appears calm. . (Ana Posadas) Diagnostic Tests Laboratory Laboratory Tests Test 03/13/17 15:35 03/14/17 04:20 03/15/17 04:36 03/15/17 15:40 White Blood Count 9.4 TH/MM3 (4.0-11.0) 7.4 TH/MM3 (4.0-11.0) Red Blood Count 3.15 MIL/MM3 (4.50-5.90) 3.02 MIL/MM3 (4.50-5.90) Hemoglobin 10.8 GM/DL (13.0-17.0) 10.3 GM/DL (13.0-17.0) Hematocrit 32.4 % (39.0-51.0) 31.0 % (39.0-51.0) Mean Corpuscular Volume 103.1 FL (80.0-100.0) 102.4 FL (80.0-100.0) Mean Corpuscular Hemoglobin 34.5 PG (27.0-34.0) 34.1 PG (27.0-34.0) Mean Corpuscular Hemoglobin Concent 33.4 % (32.0-36.0) 33.3 % (32.0-36.0) Red Cell Distribution Width 14.1 % (11.6-17.2) 13.9 % (11.6-17.2) Platelet Count 142 TH/MM3 (150-450) 131 TH/MM3 (150-450) Mean Platelet Volume 9.8 FL (7.0-11.0) 8.9 FL (7.0-11.0) Blood Urea Nitrogen 34 MG/DL (7-18) 34 MG/DL (7-18) Creatinine 2.67 MG/DL (0.60-1.30) 2.60 MG/DL (0.60-1.30) Random Glucose 100 MG/DL (74-106) 120 MG/DL (74-106) Calcium Level 8.3 MG/DL (8.5-10.1) 8.5 MG/DL (8.5-10.1) Sodium Level 139 MEQ/L (136-145) 143 MEQ/L (136-145) Potassium Level 3.2 MEQ/L (3.5-5.1) 3.3 MEQ/L (3.5-5.1) Chloride Level 102 MEQ/L (98-107) 106 MEQ/L (98-107) Carbon Dioxide Level 27.5 MEQ/L (21.0-32.0) 28.3 MEQ/L (21.0-32.0) Anion Gap 10 MEQ/L (5-15) 9 MEQ/L (5-15) Estimat Glomerular Filtration Rate 25 ML/MIN (>89) 26 ML/MIN (>89) Neutrophils (%) (Auto) 59.8 % (16.0-70.0) Lymphocytes (%) (Auto) 20.1 % (9.0-44.0) Monocytes (%) (Auto) 16.1 % (0.0-8.0) Eosinophils (%) (Auto) 3.7 % (0.0-4.0) Basophils (%) (Auto) 0.3 % (0.0-2.0) Neutrophils # (Auto) 4.4 TH/MM3 (1.8-7.7) Lymphocytes # (Auto) 1.5 TH/MM3 (1.0-4.8) Monocytes # (Auto) 1.2 TH/MM3 (0-0.9) Eosinophils # (Auto) 0.3 TH/MM3 (0-0.4) Basophils # (Auto) 0.0 TH/MM3 (0-0.2) CBC Comment DIFF FINAL Differential Comment Total Protein 6.2 GM/DL (6.4-8.2) Albumin 2.0 GM/DL (3.4-5.0) Magnesium Level 2.0 MG/DL (1.5-2.5) Alkaline Phosphatase 78 U/L (45-117) Aspartate Amino Transf (AST/SGOT) 39 U/L (15-37) Alanine Aminotransferase (ALT/SGPT) 28 U/L (12-78) Total Bilirubin 0.5 MG/DL (0.2-1.0) Bronchoalveolar Lavage WBC 2318 /MM3 Bronchoalveolar Lavage RBC 930 /MM3 Bronchoalveolar Lavage Neutrophils 99 % Bronchoalveolar Lavage Lymphocytes 1 % Lavage Fluid Total Volume 11.0 ML Lavage Fluid Total WBC Count 25.500 MILLION (4.700-7.100) Test 03/16/17 04:55 Blood Urea Nitrogen 39 MG/DL (7-18) Creatinine 2.95 MG/DL (0.60-1.30) Random Glucose 115 MG/DL (74-106) Calcium Level 8.6 MG/DL (8.5-10.1) Magnesium Level 2.1 MG/DL (1.5-2.5) Sodium Level 143 MEQ/L (136-145) Potassium Level 4.0 MEQ/L (3.5-5.1) Chloride Level 108 MEQ/L (98-107) Carbon Dioxide Level 30.8 MEQ/L (21.0-32.0) Anion Gap 4 MEQ/L (5-15) Estimat Glomerular Filtration Rate 22 ML/MIN (>89) (Ana Posadas) Result Diagram: 03/15/17 0436 03/16/17 0455 Microbiology Microbiology Date/Time Source Procedure Growth Status 03/15/17 15:40 Bronchial Brushings Left Lower Lobe Fungal Smear - Final NO FUNGAL ELEMENTS SEEN. Resulted 03/15/17 15:40 Bronchial Brushings Left Lower Lobe Fungal Culture Pending Resulted 03/15/17 15:40 Bronchial Washings Left Lower Lobe Acid Fast Stain Pending Received 03/15/17 15:40 Bronchial Washings Left Lower Lobe Mycobacterial Culture Pending Received 03/15/17 15:40 Bronchial Washings Left Lower Lobe Gram Stain - Final Resulted 03/15/17 15:40 Bronchial Washings Left Lower Lobe Bronchial Culture - Preliminary NO GROWTH IN 24 HOURS. Resulted Imaging Last 24 hours Impressions Chest X-Ray 03/16/17 0000 Signed Impressions: Service Date/Time: Thursday, March 16, 2017 08:17 - CONCLUSION: Stable chest Abraham Luz MD Procedures * 03/15/17 -bronchoscopy * 03/12/17 -reintubated * 03/12/17 -medical extubated * 03/09/17 -endotracheal Intubation * 03/09/17 -Bronchoscopy . (Ana Posadas) Assessment and Plan Disease Oriented Problem List: (1) Acute hypoxemic respiratory failure (2) Acute kidney injury (3) PNA (pneumonia) (4) Encephalopathy (5) Cellulitis (6) Protein-calorie malnutrition (7) Physical deconditioning Symptom Scale: (1) Shortness of breath 0-10 Scale: Unable to quantify Comment: Currently intubated on mechanical ventilation. Reintubated 03/12/17. (2) Anxiety 0-10 Scale: Unable to quantify (3) Debility 0-10 Scale: Unable to quantify Comment: Progressive given acute events and prolonged hospitalization. Pertinent Non-Medical Issues Psychosocial: Patient is homeless. Chronic alcohol abuse and polysubstance abuse. On an admission in April, patient stated that he grew up in [place], [place], highest level of education is high school. Patient has as per records. Patient's mother and father . Patient also reported that he had been incarcerated at least 50 times. Spiritual: Unknown. Legal: unknown if advance directives have been completed. Ethical issues impacting care: Patient currently unable to make any medical decisions for himself secondary to current clinical condition, intubated on mechanical ventilation, sedated. Ongoing attempts at contacting next of kin. Important Contacts Lore Darling (sister): [phone] . Prognosis Mr. Cuevas is a 57 years old male with a medical history significant for EtOH use and abuse, tobacco use and abuse and depression. Patient was brought to [facility] ED on 02/23/17 via [place] sugar in the 40s. Patient was admitted for management of altered mental status associated with withdrawal delirium tremens and cellulitis to right upper extremity. Clinical course complicated by persistent encephalopathy, acute kidney injury and respiratory failure required intubation and mechanical ventilation. Patient's overall prognosis is poor given the above. . Code Status: No Code Plan * CODE STATUS: No code. Patient's sister Lore Darling electing no CODE STATUS. * HEALTHCARE DECISION-MAKING: Patient is unable to make medical decisions at this time given clinical status -persistent encephalopathy, delirium, polysubstance abuse, no history of alcohol abuse. Patient now endotracheally intubated on mechanical ventilation. As per [place] Statute, medical proxy decision making falls to majority of siblings as patient is not , no confirmed children, and both parents . Health care proxy decision- making falls to patient's sister Lore Darling as other 3 siblings have opted out (please see palliative care SW note 03/15/17). * GOALS OF CARE: 03/16/17 - Patient's sister Lore acting as healthcare proxy decision maker agreed to continue with current medical care, and if possible allow medical extubation. Sister also reinforced keeping patient as DNR and not to pursue any other invasive procedures in case of any decline in clinical condition. * SYMPTOMS:== Pain, multifactorial, secondary to endotracheal intubation, cellulitis to right arm, bedrest. Patient appears comfortable. == Shortness of breath, secondary to acute respiratory failure. Currently intubated on mechanical ventilation. Reintubated 03/12/17. == Debility, secondary to acute illness and prolonged hospitalization. Likely to continue to worsen. Overall poor prognosis for a meaningful recovery. * Case discussed with bedside RN. * Telephone conversation with patient`s sister. * Palliative care will continue to follow up for further clarification of goals of care as patient's clinical course continues to evolve. . (Ana Posadas) Code Status: No Code Plan Total visit with GREGORY Huddleston, patient currently is awake, eyes open, responding by squeezing hands. Plan is to continue CPAP trials per supervisor dried yeast protocol and attempt medical extubation this weekend if possible. Her brew dose discussion with his sister, all the DNR status is to continue. Will assist her wishes no further aggressive measures. I agree with above assessment and plan. (Shannan Armas) Attestation To help prompt me to consider important information that might be impacting today's encounter and assessment, information from prior notes written by myself or my colleagues may have been "brought forward" into today's note. My signature on this note, however, is an attestation that I personally performed the exam, history, and/or decision-making noted today, and, unless otherwise indicated, the interactions with patient, family, and staff as well as the review of records all occurred today. I also attest that the listed assessment and stated plan reflect my best clinical judgment today based on the combination of historical information, prior notes, and today's exam/ interactions. When time spent is documented, it refers only to time spent today by the signer, or if indicated, combined time spent today by collaborating physician/nurse practitioner. (Shannan Armas) Ana Posadas Mar 16, 2017 14:41 Shannan Armas Mar 16, 2017 17:19
[2017-03-16] MEDS ORDERED: ACETAMINOPHEN 500 MG CPLT PO PRN (15:30)
[2017-03-17] VITALS (18 sets, daily range): BP systolic 109–140; BP diastolic 72–93; PULSE 82–108; RESP 18–27; TEMP 98.3–100.3; O2SAT 95–100
[2017-03-17] MEDS: RESP: ALBUTEROL 2.5 MG/IPRATROPIUM 0.5 MG NEB (SCH) NEB ×7 (00:12→23:24)
[2017-03-17] MEDS: RESP: ACETYLCYSTEINE 20% 30 ML NEB NEB SCH ×7 (00:12→23:26)
[2017-03-17] MEDS: SODIUM CHLOR 0.9% 1000 ML INJ 1,000 ML IV SCH (04:15)
[2017-03-17] MEDS: ARTIFICIAL TEARS OPTH SOLN 15 ML BTL EACH EYE SCH ×3 (05:42→22:00)
[2017-03-17 05:43] LABS: AUTOMATED NEUTROPHIL # 5.1 TH/MM3 (1.8-7.7); BASOPHIL % 0.1 % (0.0-2.0); EOSINOPHIL # 0.1 TH/MM3 (0-0.4); EOSINOPHIL % 0.7 % (0.0-4.0); HEMATOCRIT 28.8 % (39.0-51.0); HEMO FLAGS DIFF FINAL; LYMPHOCYTE # 1.8 TH/MM3 (1.0-4.8); MEAN CELL VOLUME 102.6 FL (80.0-100.0); MEAN CORPUSCULAR HEMOGLOBIN 34.8 PG (27.0-34.0); MEAN CORPUSCULAR HGB CONC 33.9 % (32.0-36.0); MONO % 11.1 % (0.0-8.0); NEUT % 65.1 % (16.0-70.0); PLATELET COUNT 102 TH/MM3 (150-450); RED CELL DISTRIBUTION WIDTH 14.2 % (11.6-17.2); WHITE BLOOD COUNT 7.8 TH/MM3 (4.0-11.0)
[2017-03-17 05:58] LABS: ANION GAP 8 MEQ/L (5-15); AST (GOT) 54 U/L (15-37); BICARBONATE 27.6 MEQ/L (21.0-32.0); BLOOD UREA NITROGEN 41 MG/DL (7-18); CHLORIDE 111 MEQ/L (98-107); GLOMERULAR FILTRATION RATE 22 ML/MIN (>89); MAGNESIUM 2.3 MG/DL (1.5-2.5); POTASSIUM 3.7 MEQ/L (3.5-5.1); SODIUM (NA) 147 MEQ/L (136-145)
[2017-03-17 06:05] LABS: ALKALINE PHOSPHATASE 78 U/L (45-117); ALT (GPT) 29 U/L (12-78); TOTAL BILIRUBIN ADULT 0.6 MG/DL (0.2-1.0)
--- NOTE | 2017-03-17 06:09 | RADRPT ---
EXAM DATE/TIME: 03/17/2017 04:32 [facility] COMPARISON: CHEST SINGLE AP, March 16, 2017, 8:17. INDICATIONS : Respiratory disease. MEDICAL HISTORY : Hepatitis C. Myocardial infarction. seizures, arthritis, depression SURGICAL HISTORY : None. ENCOUNTER: Subsequent ACUITY: 3 weeks PAIN SCORE: Non-responsive. LOCATION: Bilateral chest FINDINGS: ET tube tip well above the jared. Gastric tube traverses the [id number]. Persistent consolidati on left mid and lower lung with loss of delineation left hemidiaphragm. The right lung is clear. He art is upper limits normal in size, stable from prior. CONCLUSION: Persistent consolidative infiltrates left mid and lower lung. Rigo Ferguson MD on March 17, 2017 at 6:07 Board Certified Radiologist. This report was verified electronically.
--- NOTE | 2017-03-17 07:13 | HHI.CCPN ---
Subjective Remarks/Hospital Course This is a 57-year-old male that was found down and admitted to this hospital 02/23/2017. Urine tox screen revealed patient was positive for benzodiazepines and cocaine at that time. Since admission the patient has been on a [facility] protocol, neurology has been consulted Dr. Wayne, with continued supportive care. Over the last 48 hours the patient was noted to have elevation in his creatinine with a significant decrease in urine output acute renal failure nephrology was consulted the patient continues on gentle diuresis and received 80 mg of Lasix IV this afternoon and is currently on sodium bicarbonate infusion at 110 cc/an hour. Due to the patient's respiratory insufficiency, and altered mental status concern for possible continued respiratory decompensation the patient was transferred to the ICU, and critical care was consulted for management. Upon entering the patient's room the patient was noted to be lethargic having received 4 mg of Ativan in the last 4 hours, but opens eyes to sternal rub. The patient was noted to have O2 saturation of 95% on O2 via nasal cannula at 5 L with no accessory respiratory efforts. Stat ABG was ordered pending, to rule out CO2 narcosis. Since admission to ICU the patient was noted to diuresis of 700 cc. 03/03: Afebrile. The patient did not receive any Ativan since 3 PM on 03/02/17. The patient rested well overnight, eventually waking and responding. This a.m. the patient's noted to be sitting up in bed, alert and responsive. Librium has been added to medication regimen for alcohol withdrawal. Noted to be oriented to date of unable to provide name or place at this time. Essential tremors, fine tremors noted. The patient severely weak and unable to feed self without assistance. The patient's diet was advanced to regular diet, tolerating well, 100% consumption. PO meds were held since admission to ICU secondary to lethargy, all by mouth meds resumed this a.m.. The patient currently is compliant following commands, inappropriate responses, with noted incomprehensible words, language at times. Patient is noted to be very weak. Nasal cannula O2 has been weaned down to approximately 3 L, the patient appears in no respiratory distress. Subjective: 03/09: Reconsulted secondary acute respiratory failure. Chest x-ray earlier in the morning revealed collapse versus large pleural effusion left side. Patient oxygen requirements had increased from 4 L to a nonrebreather mask. CT thorax revealed likely mucous plugging/collapsed lung left side. Small to moderate left pleural effusion. Patient was combative upon arrival ICU in place in soft restraints. Due to mental status/mucous plugging patient was electively intubated using 20 mg etomidate and 50 mg, rocuronium. Patient was bronched which revealed thick white mucous plugging in the left and right mainstem. These were lavaged to left upper lobe/lingula and left lower lobe, right upper middle and lower lobes. Samples were sent see orders. Currently sedated with propofol and fentanyl drips. 03/10: Tonic seizures today when propofol stopped. Seizures ceased with propofol bolus. Left pneumonia persists but improved aeration after bronch . 03/11: Gas exchange acceptable. Continues to have tonic "seizures" when propofol is lightened. EEG 03/10 states no seizures but we will repeat EEG again today with stimulation and off propofol. Can't extubate until this "seizure" activity is resolved. Vomited tube feeds, will reduce and add reglan. 03/12: Off sedation tolerating CPAP even though intermittently apneic. Appears to follows commands but weekly on the upper extremity. No obvious seizures. EEG negative for seizure 03/11/17. Creatinine slightly improved to 2.8 from 3 03/13: Failed extubation on 03/12. Currently sedated, orally intubated on mechanical ventilation. Has thick copious respiratory secretions per CHOKE SETTER. 03/14: Remains sedated, orally intubated on mechanical ventilation. Feeling C Pap trials. Not following commands on lightening sedation. 03/15: Remains intubated encephalopathy. Left lower lobe infiltrate again indicating probable mucous plugging/collapse. Palliative care meeting with family today. I recommend tracheostomy and PEG tube placement. D/W palliative care team 03/16: Off sedation since yesterday 5PM. Eyes open spontaneously. Following commands bilateral upper extremity, he squeezes with both hands. Discussed with Dr. Kingston. Will continue weaning attempt with plan for wean to extubate. s/p bronchoscopy yesterday, with re expansion of L lung. Has moderate secretions. I have updated Lore Darling (sister) about improvement in neuro exam. See below 03/17: Tolerated CPAP 7 hours yesterday. Currently on CPAP. Lethargic/somnolent but follows commands, gives thumbs up on bilateral UE. Creat stable. UO 750 ml in 24 hours. BAL negative to date Objective Vital Signs Date Time Temp Pulse Resp B/P (MAP) Pulse Ox O2 Delivery O2 Flow Rate FiO2 03/17/17 06:00 82 03/17/17 04:00 98.3 18 130/87 (101) 100 03/17/17 04:00 45 03/16/17 19:00 Mechanical Ventilator Intake and Output 03/17/17 03/17/17 03/18/17 08:00 16:00 00:00 Intake Total 1636 ml Output Total 375 ml Balance 1261 ml Result Diagram: 03/17/17 0500 03/17/17 0500 Imaging Last Impressions Shoulder X-Ray 03/05/17 0000 Signed Impressions: Service Date/Time: Sunday, March 05, 2017 20:57 - CONCLUSION: No acute disease. Rick Sanford MD Abdomen/Pelvis CT 03/04/17 0000 Signed Impressions: Service Date/Time: Saturday, March 04, 2017 10:31 - CONCLUSION: 1. There is no hydronephrosis or renal abnormality to explain the renal failure. However, there is subtle high density stranding along the medial and upper pole of the right kidney. Suggest followup CT to assess for change. 2. Abnormal mass arising from or abutting the spleen in the left upper quadrant measuring up to 7.5 cm. It contains a small amount of calcification. Suggest correlating with any prior imaging study that could offer additional characterization. If none are available suggest followup imaging to confirm stability and consider contrast enhanced CT or MRI for further characterization when patient condition permits. 3. Small bilateral pleural effusions, left larger than right, with associated compressive atelectasis. 4. Severe coronary artery calcification. Kilo Coulter MD Chest X-Ray 03/02/17 0000 Signed Impressions: Service Date/Time: Thursday, March 02, 2017 08:18 - CONCLUSION: Increasing consolidative changes left base. Nasir Mack MD FACR Renal Ultrasound 02/27/17 0000 Signed Impressions: Service Date/Time: Monday, February 27, 2017 20:36 - CONCLUSION: 1. Mildly dilated left renal collecting system. Kidneys normal in size. Trace free fluid. Ruy Hussein MD Brain MRI 02/25/17 0000 Signed Impressions: Service Date/Time: Saturday, February 25, 2017 12:37 - CONCLUSION: Atrophy, periventricular changes without evidence for acute infarction. Nasir Mack MD FACR Head CT 02/23/17 0000 Signed Impressions: Service Date/Time: Thursday, February 23, 2017 07:38 - CONCLUSION: No significant change has occurred. Maximus Pavon MD Objective Remarks GENERAL: 57-year-old male, Awake on vent, eyes open spontaneously. Follows commands bilateral upper extremity SKIN: Warm and dry. Clean gauze dressing right forearm HEAD: Atraumatic. Normocephalic. EYES: Pupils equal and round around 2 mm bilaterally and reactive. No scleral icterus. No injection or drainage. ENT: No nasal bleeding or discharge. Mucous membranes pink and moist. Orally intubated. NECK: Trachea midline. CARDIOVASCULAR: RRR. S1, S2 no S4. Without murmur. No JVD. RESPIRATORY: Orally intubated on mechanical ventilation, Diminished breath sounds left lung thomas. No wheezing. Moderate ET secretions GASTROINTESTINAL: Abdomen soft, non-tender, nondistended. Active bowel sounds appreciated MUSCULOSKELETAL: Extremities without without significant peripheral edema. No obvious deformities. Right forearm dressing NEUROLOGICAL: Eyes are open spontaneously, follows commands bilateral upper extremities by squeezing, and giving thumbs though more lethargic today. Moves all extremities spontaneously. Weaker in bilateral LE Urinary Catheter: Yes Assessment to: Continue Date of Insertion: Feb 23, 2017 A/P Assessment and Plan Neuro/Psych: Encephalopathy/Delirium most likely metabolic Admission with EtOH withdrawal - likely completed Polysubstance abuse including cocaine and benzodiazepines Polyneuropathy of critical illness Off all sedation since 5 PM 03/15/17. Improving neuro exam. Follows commands Patient is followed by Dr. Rogel neurology. EEG's reveal moderate encephalopathy no epileptiform activity. MRI negative for acute findings Previously on Seroquel 25 mg at night and Haldol when necessary-Haldol discontinued 03/15/17 Librium decreased from 50mg BID to 25 mg twice a day on 03/12-DCd 03/15/17 Seizure precautions Seizures 03/10. Continue thiamine 100 mg daily AVOID ALL SEDATION AND NEUROLEPTS Respiratory: Acute hypoxemic respiratory failure secondary to aspiration Recurrent left lower lobe collapse/mucus plugging s/p Bronchoscopy 03/15. L main bronchus had mucus plugging. PRVC 16/500/06/29/39. Daily spont breathing trials. Ventilator bundle. Albuterol/ipratropium aerosols every 4 hours with albuterol aerosols every 2 hours.PRN IV Solumedrol 60 q12 03/17/17 hypertonic saline aerosols every 4 hours 5 days to thin secretions. Mucomyst every [address] thorax from 03/09 revealed collapse left upper/lingula lobes with significant secretions left main bronchus. s/p bronch Improved aeration 03/10 Cardiovascular: Hypertension Currently on amlodipine 10 mg daily, clonidine 0.1 mg 3 times a day and metoprolol 5 mg by mouth twice a day for hypertension, with holding parameters Maintain MAP > 65 mmHG Renal: Acute kidney injury secondary to ATN Nephrology following Dr. Martinez. Creat 2.9. UO 750 ml in 24 hours IV hydration with 1/2 NS, monitor CMP daily. Accurate I's and O's, Monitor urine output No signs of hydronephrosis on renal imaging Urine eosinophils negative FEN/GI: Mild protein calorie malnutrition Hyperkalemia- Hep C Continue tube feeds and advanced to goal as tolerated Lansoprazole for GI prophylaxis Docusate sodium senna 1 tablet twice a day for bowel regimen Having daily BM Heme/ID: Macro Anemia Thrombocytopenia Pneumonia F/U BAL 03/15-neg to date On previous cultures in BAL have been negative except 02/23 coag negative staph which is contamination Currently on cefepime-continue, DCd Flagyl and azithromycin renally dosed since 03/09/17-03/15/17 Endocrine: Sliding-scale insulin to maintain euglycemia/low regimen with NovoLog every 6 hours Prophylaxis: GI Prophylaxis Lansoprazole DVT Prophylaxis -- SCDs/heparin subcutaneous Lines: Peripheral IVs providing adequate access at this time. Palliative care team following to assist with deciding goals of therapy. Overall impression: Critically ill with recurrent mucus plugging and hypoxemic respiratory failure. Left lung more well aerated after bronchoscopy. Failed extubation on 03/12 and required reintubation. DNR but continue aggressive care Level 3 I discussed and updated Lore Darling (sister) over the phone: [phone]. I explained to her improvement in neurological status. She is agreeable to continued care since there is improvement, and she does not want any other invasive procedures at this time and if there is any further clinical deterioration she wants to pursue comfort measures Grace Boateng MD Mar 17, 2017 07:12
[2017-03-17] MEDS: SODIUM CHLOR 0.45% 1000 ML INJ 1,000 ML IV SCH ×2 (07:15→17:12)
[2017-03-17] MEDS: CHLORHEXIDINE 0.12% (ORAL KIT) 15 ML CUP MT SCH ×2 (08:00→20:00)
[2017-03-17] MEDS: BENEPROTEIN POWDER 1 PACK G-TUBE SCH ×3 (09:00→16:11)
--- NOTE | 2017-03-17 10:05 | HHI.FPPN ---
Subjective Remarks Mr Cuevas is more alert today than yesterday. He appears very fatigued but moved his thumb a little and per his nurse is following commands today. he is going to be extubated today if all goes well. He was made a DNR per his sister. Mr Cuevas was very hypoglycemic perhaps for hours prior to this hospitalization with a glucose as low as 16 reported. The history related (as Mr Cuevas has never been able to give a clear history this whole hospitalization) was that his glucose was extremely low at 16 [place] the [place] and an ambulance was called. Reportedly, Mr Cuevas refused any transport to the hospital at that time and sent the paramedics away. some hours later he was comatose and his glucose was still low but he was too obtunded to refuse the ambulance. In his prior hospitalizations, he would often leave AMA and would usually refuse further treatments once he was able to make decisions for himself. He has never recovered sufficient cognitive function to have the capacity to make decisions for himself this entire hospitalization despite stopping all sedating meds for days and giving him maximal support, the best he got was saying fragments of sentences and doing some purposeful behaviors. Unfortunately , then he developed more respiratory problems and ended up on his ventilator. Objective Vitals Vital Signs Date Time Temp Pulse Resp B/P (MAP) Pulse Ox O2 Delivery O2 Flow Rate FiO2 03/17/17 07:34 45 03/17/17 07:29 100 45 03/17/17 06:00 82 03/17/17 04:00 98.3 96 18 130/87 (101) 100 03/17/17 04:00 99 45 03/17/17 04:00 45 03/17/17 04:00 96 03/17/17 02:00 105 03/17/17 00:13 100 45 03/17/17 00:00 90 03/17/17 00:00 98.5 90 18 118/83 (95) 100 03/17/17 00:00 45 03/16/17 22:00 90 03/16/17 20:15 100 45 03/16/17 20:00 99.4 102 18 110/69 (83) 100 03/16/17 20:00 45 03/16/17 20:00 102 03/16/17 19:00 100 Mechanical Ventilator 45 03/16/17 18:11 45 03/16/17 18:00 107 03/16/17 17:16 100 45 03/16/17 16:00 99.8 104 28 125/74 (91) 99 03/16/17 16:00 45 03/16/17 16:00 94 03/16/17 14:00 97 03/16/17 12:00 45 03/16/17 12:00 100.2 94 26 105/70 (82) 97 03/16/17 12:00 94 03/16/17 11:37 93 45 I/O 03/16/17 03/16/17 03/16/17 03/17/17 03/17/17 03/17/17 07:00 15:00 23:00 07:00 15:00 23:00 Intake Total 426 ml 98 ml 2630 ml 1636 ml 225 ml Output Total 300 ml 375 ml 375 ml Balance 126 ml 98 ml 2255 ml 1261 ml 225 ml IV Total 98 ml 1719 ml 931 ml 225 ml Tube Feeding 366 ml 791 ml 665 ml Other 60 ml 120 ml 40 ml Output Urine Total 300 ml 375 ml 375 ml # Bowel Movements 2 2 1 Result Diagram: 03/17/17 0500 03/17/17 0500 Objective Remarks GENERAL: male, lying in bed, eyes open and following some commands SKIN: Bilateral upper extremities with multiple well-healing scabs HEENT: ETT in place; OGT in place. Pupils grossly symmetrical CARDIOVASCULAR: RRR without appreciable murmurs. grossly normal perfusion. No edema RESPIRATORY: normal rate; clear anterior breath sounds bilaterally, without wheezing GASTROINTESTINAL: Abdomen soft, non-tender, nondistended; + bowel sounds : Not assessed today MUSCULOSKELETAL: LUE with edema NEURO: Awake, will track providers as if alert.responsive to brief attempts at verbal commands. No obvious facial asymmetry. He does move his arms spontaneously and somewhat purposefully. Urinary Catheter: No Date of Insertion: Feb 23, 2017 Vascular Central Line Catheter: No A/P Assessment and Plan 57-year-old white male with past medical history of alcohol withdrawal presented to the ED with severe hypoglycemia and altered mental status; patient has had progressively worsening renal function and is currently being followed for renal failure and continued altered mental status. Pt recently required intubation and sedation for respiratory distress and CT with opacification of the left lung concerning for left lung collapse in the context of mucus plugging , which was removed on 03/09. -Pt intubated and sedated on propofol/fentanyl as managed by field crop farmworker 03/10-03/12 - Pt having seizure-like activity - neuro consulted, stat Brain MRI w/ o contrast, stat EEG, and Keppra 1g IV bolus, Lactate 1.9 today vs 1.5 yesterday. Repeat EEG still negative. Not having true seizures 03/12 - present: Pt ex-tubated, had increasing O2 requirement, and was subsequently re-intubated. Patient has remained mostly unresponsive with encephalopathy; sedation weaned 03/15 . Palliatice care discussed with family; DNR status recommended. Will attempt extubation. Discharge Planning Pending workup for declining renal function, AMS, weaning off vent Discussed plan of care with casey saw operator and palliative care social media community manager. The palliative care social media community manager in contact with all of the patient's siblings; made DNR/DNI Problem List: (1) Altered mental status ICD Codes: R41.82 - Altered mental status, unspecified Status: Acute Plan: Patient awake with eyes open -Neuro consulted- -stop sedatives -EEG negative; jerking not suspected to be seizure activity -Treat agitation -CIWA tapered -Stopped Librium, stopped Ativan -Haldol 1mg PRN q8hrs for agitation/psychosis -Holding Seroquel 25 mg PO qhs due to being intubated/sedated. 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 He was much more alert at one point. -Continue supportive treatment -Recommend judicious benzodiazepine usage--benzos stopped -May benefit from some type of extended care facility if he does well enough -Occupational therapy recommended OT at rehabilitation (PT recommended OT) when he was at his best. he probably needs full rehab if he improves -ST consulted -regular and thin liquids per ST when he was at his best. patient is dependent with total help required now. -Continue tube feeds/IVF Seizure precautions Impression: AMS initially suspected secondary to alcoholism; persistent. could be from hypoglycemia UDS positive for Benzos and Cocaine Brain MRI on 02/25- atrophy, periventricular changes without evidence for acute infarction Head CT on admission- no significant change EEG 03/12- diffuse slowing with medication effect and diffuse encephalopathy without focal abnormalities. No seizure activity; jerking episodes witnessed w/ o seizure activity RPR nonreactive CMP on admission with mild hyponatremia (134), transaminase elevations, calcium of 8.1 Hep panel - Hep C reactive Thiamine level high at 325 Ammonia- normal/high (2) Respiratory disease ICD Codes: J98.9 - Respiratory disorder, unspecified Status: Acute Plan: Impression: Progressive worsening of respiratory status 03/09 requiring move to ICU and intubation/sedation and bronchial lavage to remove mucous plugs from both left and right mainstem bronchi. CXR 03/10 with persistent L basilar consolidation/effusion. Improving aeration in right base. Stable position of life support tubes CXR 03/16 stable Bronchial washing cultures: Fungal culture with yeast AFB negative; culture pending Bronchial bacterial culture with light growth of normal ariela -Continue CPAP, O2 per CC/respiratory therapy and attempt to extubate (3) PNA (pneumonia) ICD Codes: J18.9 - Pneumonia, unspecified organism Status: Acute Plan: -Continue Cefepime 2g IV renally dosed s/p Azithromycin and Flagyl 03/09-03/15 -s/p Solumedrol 40mg IV BID -Continue Duonebs q4h -Continue O2 as needed Impression: Patient with symptoms of cough and intermittent hypoxia to low 90's requiring O2 supplementation; worsening of respiratory disease 03/09 with subsequent intubation and bronchoscopy w/ washing. CXR 03/02 with increasing consolidative changes in the left base. CXR 03/10 with persistent L basilar consolidation/effusion. Improving aeration in right base. Stable position of life support tubes CXR 03/16 stable Initial blood cultures + for staph hominis; subsequently negative 02/26, 03/02 Sputum cultures not obtained Urine Legionella, strep pneumo negative (4) Hypertension ICD Codes: I10 - Essential (primary) hypertension Status: Resolved Plan: Impression: BP with MAP in upper 60's-80's. -Continue Amlodipine 10mg PO daily -Will hold Hydralazine 25 mg q12h since hypotensive -Metoprolol 100 mg q12h -Clonidine 0.1mg TID -Clonidine 0.1 mg q6h PRN For SBP >/= 180, DBP >/= 100 (5) FEN Status: Acute Plan: Fluids: none Electrolytes: Monitor and replace per protocol Nutrition: Tube feeds GI PPx: Lansoprazole 30 mg NG/day VTE prophylaxis: Heparin 5000 units every 12 hours (6) SAQIB (acute kidney injury) ICD Codes: N17.9 - Acute kidney failure, unspecified Status: Acute Plan: -Nephrology consulted: Diagnosed with Acute renal failure acute tubular necrosis with drug use, Non oliguric, creatinine is slightly worse. -Changed IVF to NS at 100ml/hr -Monitor BMP -CT abdomen/pelvis- No hydronephrosis. Subtle high density stranding medial/ upper right kidney. Abnormal mass arising from/abutting spleen LUQ measuring up to 7.5 cm with small amount of calcification. Discussed with radiologist. Likely from previous trauma. No further workup indicated. Impression: Patient with SAQIB. Creatinine trended: 0.86 on admission Suspect intrinsic cause as Cr elevation refractory to fluid supplementation, BUN /Cr ratio <20/1, and catheterized Previously on Vancomycin-> discontinued Renal US 02/27 with mild L hydronephrosis; normal kidneys No urine eosinophils Urine random Cr 41.6 Urine random sodium 97 TB testing negative FIDEL negative Cr stable at 2.6-2.95 Problem Qualifiers (1) Altered mental status: Qualified Codes: R41.0 - Disorientation, unspecified (2) PNA (pneumonia): Qualified Codes: J18.9 - Pneumonia, unspecified organism (3) Hypertension: Qualified Codes: I10 - Essential (primary) hypertension Betzaida Connolly MD Mar 17, 2017 10:05
[2017-03-17] MEDS: METOPROLOL TARTRATE 100 MG TAB PO SCH ×2 (10:09→21:59)
[2017-03-17] MEDS: HEPARIN SODIUM - SQ 10,000 UNITS/ML VIAL SQ SCH ×2 (10:09→21:58)
[2017-03-17] MEDS: THIAMINE HCL 100 MG TAB PO SCH (10:09)
[2017-03-17] MEDS: methylPREDNISolone SOD SUCC 125 MG/2 ML VIAL IV PUSH SCH ×2 (10:09→21:58)
[2017-03-17] MEDS: LANSOPRAZOLE SOLUTAB 30 MG TAB NG SCH (10:09)
[2017-03-17] MEDS: MULTIVITAMIN TAB PO SCH (10:09)
[2017-03-17] MEDS: CEFEPIME INJ 2,000 MG in SODIUM CHLORIDE 0.9% INJ 100 ML IV SCH (10:10)
[2017-03-17] MEDS: SODIUM CHLORIDE 0.9% FLUSH 10 ML FLUSH IV FLUSH SCH ×2 (10:10→22:00)
[2017-03-17] MEDS: HYOSCYAMINE 0.125 MG TAB PO PRN ×2 (10:12→21:59)
--- NOTE | 2017-03-17 16:48 | HHI.NPPN ---
Subjective History of Present Illness 57-year-old male with the alcohol withdrawal, altered mental status, acute renal failure Additional Remarks Patient remain on the vent. and sedated. Objective Data Data 03/17/17 03/18/17 19:00 07:00 Intake Total 325 ml Balance 325 ml IV Total 325 ml Vital Signs Date Time Temp Pulse Resp B/P (MAP) Pulse Ox O2 Delivery O2 Flow Rate FiO2 03/17/17 15:16 98 40 03/17/17 12:00 94 03/17/17 12:00 45 03/17/17 12:00 98.9 97 22 140/93 (109) 97 03/17/17 11:04 97 40 03/17/17 10:00 108 03/17/17 08:00 102 03/17/17 08:00 45 03/17/17 08:00 99.8 102 27 122/82 (95) 100 03/17/17 07:34 45 03/17/17 07:29 100 45 03/17/17 07:00 99 Mechanical Ventilator 45 03/17/17 06:00 82 03/17/17 04:00 98.3 96 18 130/87 (101) 100 03/17/17 04:00 99 45 03/17/17 04:00 45 03/17/17 04:00 96 03/17/17 02:00 105 03/17/17 00:13 100 45 03/17/17 00:00 90 03/17/17 00:00 98.5 90 18 118/83 (95) 100 03/17/17 00:00 45 03/16/17 22:00 90 03/16/17 20:15 100 45 03/16/17 20:00 99.4 102 18 110/69 (83) 100 03/16/17 20:00 45 03/16/17 20:00 102 03/16/17 19:00 100 Mechanical Ventilator 45 03/16/17 18:11 45 03/16/17 18:00 107 03/16/17 17:16 100 45 -: 03/17/17 0500 03/17/17 0500 Physical Exam General Appearance: Malnourished Appearance Remarks Intubated and sedated. Eyes Eye Exam: Pupils Equal Throat Throat Exam: Oral Mucosa [place] & Moist Neck Neck Exam: Neck Supple Pulmonary Resp Exam: Crackles, Rhonchi, Decreased Bases, Diminished Breath Sounds Cardiology CV Exam: Regular, Normal Sinus Rhythm Gastrointestinal/Abdomen GI Exam: Soft, Non-Tender, Bowel Sounds Present Extremeties Extremities Exam: Trace Edema Neurologic Neuro Exam: Sedated Assessment/Plan Problem List: (1) SAQIB (acute kidney injury) ICD Codes: N17.9 - Acute kidney failure, unspecified Status: Acute Plan: Acute renal failure acute tubular necrosis with drug use Non oliguric, creatinine is stable at 2.67 replace K Hepatitis C positive Ammonia not high s/p bronchoscopy with removal of mucous plug self extubated CT scan abdominal reviewed Subtle high density stranding medial/upper right kidney. Abnormal mass arising from/abutting spleen LUQ measuring up to 7.5 cm with small amount of calcification. FIDEL is positive 1:80, low titre. Creatinine is stable at 2.9, started on IVF, follow the urine out put and BMP. (2) Alcohol withdrawal ICD Codes: F10.239 - Alcohol dependence with withdrawal, unspecified Status: Chronic Plan: Patient remained in altered mental status (3) Hypertension ICD Codes: I10 - Essential (primary) hypertension Status: Resolved Plan: Patient's blood pressure was labile continue to monitor Problem Qualifiers (1) Alcohol withdrawal: Qualified Codes: F10.231 - Alcohol dependence with withdrawal delirium (2) Hypertension: Qualified Codes: I10 - Essential (primary) hypertension Gilbert Quan MD Mar 17, 2017 16:47
[2017-03-18] VITALS (22 sets, daily range): BP systolic 94–147; BP diastolic 61–101; PULSE 68–106; RESP 18–29; TEMP 97.2–99.7; O2SAT 92–100
[2017-03-18] MEDS: RESP: ALBUTEROL 2.5 MG/IPRATROPIUM 0.5 MG NEB (SCH) NEB ×6 (03:59→23:33)
[2017-03-18] MEDS: RESP: ACETYLCYSTEINE 20% 30 ML NEB NEB SCH ×6 (03:59→23:32)
[2017-03-18 05:17] LABS: ALT (GPT) 34 U/L (12-78); ANION GAP 9 MEQ/L (5-15); AST (GOT) 60 U/L (15-37); BICARBONATE 26.5 MEQ/L (21.0-32.0); BLOOD UREA NITROGEN 45 MG/DL (7-18); CHLORIDE 109 MEQ/L (98-107); GLOMERULAR FILTRATION RATE 22 ML/MIN (>89); MAGNESIUM 2.4 MG/DL (1.5-2.5); POTASSIUM 4.3 MEQ/L (3.5-5.1); SODIUM (NA) 144 MEQ/L (136-145)
[2017-03-18 05:19] LABS: ALKALINE PHOSPHATASE 81 U/L (45-117); TOTAL BILIRUBIN ADULT 0.5 MG/DL (0.2-1.0)
--- NOTE | 2017-03-18 05:33 | RADRPT ---
EXAM DATE/TIME: 03/18/2017 03:53 [facility] COMPARISON: CHEST SINGLE AP, March 12, 2017, 19:45. CHEST SINGLE AP, March 17, 2017, 4:32. INDICATIONS : Respiratory failure MEDICAL HISTORY : Hepatitis C. Myocardial infarction. Seizures, arthritis, depression SURGICAL HISTORY : None. ENCOUNTER: Subsequent ACUITY: 3 weeks PAIN SCORE: Non-responsive. LOCATION: Bilateral chest FINDINGS: Mild patient rotation towards the left. ET tube tip 4 cm above the jared. Gastric tube traverses t he [id number]. The patient is rotated slightly towards the left. Interval development of complet e opacification of left hemithorax with associated mild mediastinal shift. The right lung is clear. Multiple healed left rib fractures CONCLUSION: Interval development of complete opacification of the left hemithorax and mediastinal shift towards t he left. Rigo Ferguson MD on March 18, 2017 at 5:30 Board Certified Radiologist. This report was verified electronically.
[2017-03-18] MEDS: SODIUM CHLOR 0.45% 1000 ML INJ 1,000 ML IV SCH ×2 (05:43→13:18)
[2017-03-18] MEDS: ARTIFICIAL TEARS OPTH SOLN 15 ML BTL EACH EYE SCH ×3 (05:43→22:00)
[2017-03-18] MEDS: SODIUM CHLORIDE 0.9% FLUSH 10 ML FLUSH IV FLUSH SCH ×2 (07:40→21:00)
[2017-03-18] MEDS: BENEPROTEIN POWDER 1 PACK G-TUBE SCH ×3 (07:41→15:55)
[2017-03-18] MEDS: LANSOPRAZOLE SOLUTAB 30 MG TAB NG SCH (07:41)
[2017-03-18] MEDS: THIAMINE HCL 100 MG TAB PO SCH (07:41)
[2017-03-18] MEDS: MULTIVITAMIN TAB PO SCH (07:41)
[2017-03-18] MEDS: methylPREDNISolone SOD SUCC 125 MG/2 ML VIAL IV PUSH SCH ×2 (07:41→22:22)
[2017-03-18] MEDS: CHLORHEXIDINE 0.12% (ORAL KIT) 15 ML CUP MT SCH ×2 (07:42→20:00)
--- NOTE | 2017-03-18 08:14 | HHI.CCPN ---
Subjective Remarks/Hospital Course This is a 57-year-old male that was found down and admitted to this hospital 02/23/2017. Urine tox screen revealed patient was positive for benzodiazepines and cocaine at that time. Since admission the patient has been on a [facility] protocol, neurology has been consulted Dr. Wayne, with continued supportive care. Over the last 48 hours the patient was noted to have elevation in his creatinine with a significant decrease in urine output acute renal failure nephrology was consulted the patient continues on gentle diuresis and received 80 mg of Lasix IV this afternoon and is currently on sodium bicarbonate infusion at 110 cc/an hour. Due to the patient's respiratory insufficiency, and altered mental status concern for possible continued respiratory decompensation the patient was transferred to the ICU, and critical care was consulted for management. Upon entering the patient's room the patient was noted to be lethargic having received 4 mg of Ativan in the last 4 hours, but opens eyes to sternal rub. The patient was noted to have O2 saturation of 95% on O2 via nasal cannula at 5 L with no accessory respiratory efforts. Stat ABG was ordered pending, to rule out CO2 narcosis. Since admission to ICU the patient was noted to diuresis of 700 cc. 03/03: Afebrile. The patient did not receive any Ativan since 3 PM on 03/02/17. The patient rested well overnight, eventually waking and responding. This a.m. the patient's noted to be sitting up in bed, alert and responsive. Librium has been added to medication regimen for alcohol withdrawal. Noted to be oriented to date of unable to provide name or place at this time. Essential tremors, fine tremors noted. The patient severely weak and unable to feed self without assistance. The patient's diet was advanced to regular diet, tolerating well, 100% consumption. PO meds were held since admission to ICU secondary to lethargy, all by mouth meds resumed this a.m.. The patient currently is compliant following commands, inappropriate responses, with noted incomprehensible words, language at times. Patient is noted to be very weak. Nasal cannula O2 has been weaned down to approximately 3 L, the patient appears in no respiratory distress. Subjective: 03/09: Reconsulted secondary acute respiratory failure. Chest x-ray earlier in the morning revealed collapse versus large pleural effusion left side. Patient oxygen requirements had increased from 4 L to a nonrebreather mask. CT thorax revealed likely mucous plugging/collapsed lung left side. Small to moderate left pleural effusion. Patient was combative upon arrival ICU in place in soft restraints. Due to mental status/mucous plugging patient was electively intubated using 20 mg etomidate and 50 mg, rocuronium. Patient was bronched which revealed thick white mucous plugging in the left and right mainstem. These were lavaged to left upper lobe/lingula and left lower lobe, right upper middle and lower lobes. Samples were sent see orders. Currently sedated with propofol and fentanyl drips. 03/10: Tonic seizures today when propofol stopped. Seizures ceased with propofol bolus. Left pneumonia persists but improved aeration after bronch . 03/11: Gas exchange acceptable. Continues to have tonic "seizures" when propofol is lightened. EEG 03/10 states no seizures but we will repeat EEG again today with stimulation and off propofol. Can't extubate until this "seizure" activity is resolved. Vomited tube feeds, will reduce and add reglan. 03/12: Off sedation tolerating CPAP even though intermittently apneic. Appears to follows commands but weekly on the upper extremity. No obvious seizures. EEG negative for seizure 03/11/17. Creatinine slightly improved to 2.8 from 3 03/13: Failed extubation on 03/12. Currently sedated, orally intubated on mechanical ventilation. Has thick copious respiratory secretions per [employer]. 03/14: Remains sedated, orally intubated on mechanical ventilation. Feeling C Pap trials. Not following commands on lightening sedation. 03/15: Remains intubated encephalopathy. Left lower lobe infiltrate again indicating probable mucous plugging/collapse. Palliative care meeting with family today. I recommend tracheostomy and PEG tube placement. D/W palliative care team 03/16: Off sedation since yesterday 5PM. Eyes open spontaneously. Following commands bilateral upper extremity, he squeezes with both hands. Discussed with Dr. Kingston. Will continue weaning attempt with plan for wean to extubate. s/p bronchoscopy yesterday, with re expansion of L lung. Has moderate secretions. I have updated Lore Darling (sister) about improvement in neuro exam. See below 03/17: Tolerated CPAP 7 hours yesterday. Currently on CPAP. Lethargic/somnolent but follows commands, gives thumbs up on bilateral UE. Creat stable. UO 750 ml in 24 hours. BAL negative to date 03/18: Remains intubated off sedation. There is further improvement in neuro exam, able to move both feet to command, gives thumbs up on both upper extremities. Chest x-ray shows complete white out of the left lung field. We' ll plan for emergency bronchoscopy Objective Vital Signs Date Time Temp Pulse Resp B/P (MAP) Pulse Ox O2 Delivery O2 Flow Rate FiO2 03/18/17 07:21 95 35 03/18/17 06:00 90 03/18/17 04:00 97.2 19 127/81 (96) 03/17/17 19:00 Mechanical Ventilator Intake and Output 03/18/17 03/18/17 03/19/17 08:00 16:00 00:00 Intake Total 850 ml Output Total 700 ml Balance 150 ml Result Diagram: 03/17/17 0500 03/18/17 0411 Other Results Microbiology Date/Time Source Procedure Growth Status 03/15/17 15:40 Bronchial Washings Left Lower Lobe Gram Stain - Final Complete 03/15/17 15:40 Bronchial Washings Left Lower Lobe Bronchial Culture - Final RARE GROWTH NORMAL RESPIRATORY MEG Complete Imaging Last Impressions Shoulder X-Ray 03/05/17 0000 Signed Impressions: Service Date/Time: Sunday, March 05, 2017 20:57 - CONCLUSION: No acute disease. Rick Sanford MD Abdomen/Pelvis CT 03/04/17 0000 Signed Impressions: Service Date/Time: Saturday, March 04, 2017 10:31 - CONCLUSION: 1. There is no hydronephrosis or renal abnormality to explain the renal failure. However, there is subtle high density stranding along the medial and upper pole of the right kidney. Suggest followup CT to assess for change. 2. Abnormal mass arising from or abutting the spleen in the left upper quadrant measuring up to 7.5 cm. It contains a small amount of calcification. Suggest correlating with any prior imaging study that could offer additional characterization. If none are available suggest followup imaging to confirm stability and consider contrast enhanced CT or MRI for further characterization when patient condition permits. 3. Small bilateral pleural effusions, left larger than right, with associated compressive atelectasis. 4. Severe coronary artery calcification. Kilo Coulter MD Chest X-Ray 03/02/17 0000 Signed Impressions: Service Date/Time: Thursday, March 02, 2017 08:18 - CONCLUSION: Increasing consolidative changes left base. Nasir Mack MD FACR Renal Ultrasound 02/27/17 0000 Signed Impressions: Service Date/Time: Monday, February 27, 2017 20:36 - CONCLUSION: 1. Mildly dilated left renal collecting system. Kidneys normal in size. Trace free fluid. Ruy Hussein MD Brain MRI 02/25/17 0000 Signed Impressions: Service Date/Time: Saturday, February 25, 2017 12:37 - CONCLUSION: Atrophy, periventricular changes without evidence for acute infarction. Nasir Mack MD FACR Head CT 02/23/17 0000 Signed Impressions: Service Date/Time: Thursday, February 23, 2017 07:38 - CONCLUSION: No significant change has occurred. Maximus Pavon MD Objective Remarks GENERAL: 57-year-old male, Awake on vent, eyes open spontaneously. Follows commands bilateral upper and lower extremity SKIN: Warm and dry. Clean gauze dressing right forearm HEAD: Atraumatic. Normocephalic. EYES: Pupils equal and round around 2 mm bilaterally and reactive. No scleral icterus. No injection or drainage. ENT: No nasal bleeding or discharge. Mucous membranes pink and moist. Orally intubated. NECK: Trachea midline. CARDIOVASCULAR: RRR. S1, S2 no S4. Without murmur. No JVD. RESPIRATORY: Orally intubated on mechanical ventilation, Diminished breath sounds left lung thomas. Few coarse rhonchi. Moderate ET secretions GASTROINTESTINAL: Abdomen soft, non-tender, nondistended. Active bowel sounds appreciated MUSCULOSKELETAL: Extremities without without significant peripheral edema. No obvious deformities. Right forearm dressing NEUROLOGICAL: Eyes are open spontaneously, follows commands bilateral upper and lower extremities. Moves all extremities spontaneously. Weaker in bilateral LE Date of Insertion: Feb 23, 2017 A/P Assessment and Plan Neuro/Psych: Encephalopathy/Delirium most likely metabolic Admission with EtOH withdrawal - likely completed Polysubstance abuse including cocaine and benzodiazepines Polyneuropathy of critical illness Off all sedation since 5 PM 03/15/17. Improving neuro exam. Follows commands Patient is followed by Dr. Rogel neurology. EEG's reveal moderate encephalopathy no epileptiform activity. MRI negative for acute findings Previously on Seroquel 25 mg at night and Haldol when necessary-Haldol discontinued 9/21/17 Librium decreased from 50mg BID to 25 mg twice a day on 03/12-DCd 03/15/17 Seizure precautions Seizures 03/10. Continue thiamine 100 mg daily AVOID ALL SEDATION AND NEUROLEPTIC Respiratory: Acute hypoxemic respiratory failure secondary to aspiration Recurrent left lower lobe collapse/mucus plugging Complete opacification of left lung field due to mucus plugging 03/18/70 Plan for emergency bronchoscopy today 03/18/17 s/p Bronchoscopy 03/15. L main bronchus had mucus plugging. PRVC /500/06/29/39. Daily spont breathing trials. Ventilator bundle. Albuterol/ ipratropium aerosols every 4 hours with albuterol aerosols every 2 hours.PRN IV Solumedrol 60 q12 03/17/17 hypertonic saline aerosols every 4 hours 5 days to thin secretions. Mucomyst every [address] thorax from 03/09 revealed collapse left upper/lingula lobes with significant secretions left main bronchus. s/p bronch Improved aeration 03/10 Cardiovascular: Hypertension Currently on amlodipine 10 mg daily, clonidine 0.1 mg 3 times a day and metoprolol 5 mg by mouth twice a day for hypertension, with holding parameters Maintain MAP > 65 mmHG Renal: Acute kidney injury secondary to ATN Nephrology following Dr. Martinez. Creat 2.9. UO 1100 ml in 24 hours IV hydration with 1/2 NS, monitor CMP daily. Accurate I's and O's, Monitor urine output No signs of hydronephrosis on renal imaging,Urine eosinophils negative FEN/GI: Mild protein calorie malnutrition Hyperkalemia-resolved Hep C Continue tube feeds and advanced to goal as tolerated. Hold for bronchoscopy Lansoprazole for GI prophylaxis Docusate sodium senna 1 tablet twice a day for bowel regimen. Having daily BM Heme/ID: Macro Anemia Thrombocytopenia Pneumonia F/U BAL 03/15-neg to date On previous cultures in BAL have been negative except 02/23 coag negative staph which is contamination Currently on cefepime-continue, DCd Flagyl and azithromycin 03/09/17-03/15/17 Endocrine: Sliding-scale insulin to maintain euglycemia/low regimen with NovoLog every 6 hours Prophylaxis: GI Prophylaxis Lansoprazole DVT Prophylaxis -- SCDs/heparin subcutaneous Lines: Peripheral IVs providing adequate access at this time. Palliative care team following to assist with deciding goals of therapy. Overall impression: Critically ill with recurrent mucus plugging and hypoxemic respiratory failure. Left lung more well aerated after bronchoscopy. Failed extubation on 03/12 and required reintubation. DNR but continue aggressive care CCT 35. Acute change in clinical condition has complete left lower lobe collapse with midline shift. Will need emergency bronchoscopy I discussed and updated Lore Darling (sister) over the phone: [phone]. I explained to her improvement in neurological status. She is agreeable to continued care since there is improvement, and she does not want any other invasive procedures at this time and if there is any further clinical deterioration she wants to pursue comfort measures Grace Boateng MD Mar 18, 2017 08:14
[2017-03-18] MEDS ORDERED: fentaNYL CITRATE 250 MCG/5 ML AMP IV PUSH ONE (09:00)
[2017-03-18] MEDS ORDERED: MIDAZOLAM HCL 5 MG/5 ML VIAL IV PUSH ONE (09:00)
[2017-03-18] MEDS ORDERED: ROCURONIUM INJ 100 MG/10 ML VIAL IV ONE (09:00)
[2017-03-18] MEDS ORDERED: MIDAZOLAM HCL 5 MG/ML VIAL (1 ML) ONE (09:05)
[2017-03-18] MEDS ORDERED: ROCURONIUM INJ 50 MG/5 ML VIAL ONE ×2 (09:05→10:36)
--- NOTE | 2017-03-18 09:36 | HHI.FPPN ---
Subjective Remarks Patient is alert and tracking me with his eyes and following commands this morning. He had decreased breath sounds on the left, and CXR showed white out of left lung. Patient received versed and fentanyl in preparation for bronchoscopy. Washing/irrigation and aspiration of mucus plug was performed at bedside. Still plan to extubate patient today or tomorrow depending on sedation. (Anderson Matt MD R2) Objective Vitals Vital Signs Date Time Temp Pulse Resp B/P (MAP) Pulse Ox O2 Delivery O2 Flow Rate FiO2 03/18/17 08:25 100 100 03/18/17 07:21 95 35 03/18/17 07:00 35 03/18/17 06:00 90 03/18/17 04:02 96 35 03/18/17 04:00 45 03/18/17 04:00 94 03/18/17 04:00 97.2 88 19 127/81 (96) 97 03/18/17 02:00 68 03/18/17 01:38 99 35 03/18/17 00:00 40 03/18/17 00:00 98.7 103 18 127/80 (96) 92 03/18/17 00:00 87 03/17/17 22:59 18 03/17/17 22:36 97 35 03/17/17 22:00 101 03/17/17 20:00 98.7 101 27 140/90 (107) 98 03/17/17 20:00 101 03/17/17 20:00 45 03/17/17 19:37 95 40 03/17/17 19:00 99 Mechanical Ventilator 40 03/17/17 18:00 100 03/17/17 16:00 86 03/17/17 16:00 40 03/17/17 16:00 100.3 86 24 109/72 (84) 99 03/17/17 15:16 98 40 03/17/17 14:00 90 03/17/17 12:00 94 03/17/17 12:00 45 03/17/17 12:00 98.9 97 22 140/93 (109) 97 03/17/17 11:04 97 40 03/17/17 10:00 108 I/O 03/17/17 03/17/17 03/17/17 03/18/17 03/18/17 03/18/17 07:00 15:00 23:00 07:00 15:00 23:00 Intake Total 1636 ml 325 ml 991 ml 850 ml Output Total 375 ml 400 ml 700 ml Balance 1261 ml 325 ml 591 ml 150 ml IV Total 931 ml 325 ml 790 ml Tube Feeding 665 ml 141 ml 450 ml Tube Irrigant 60 ml Other 40 ml 400 ml Output Urine Total 375 ml 400 ml 700 ml Stool Total 0 ml # Bowel Movements 1 2 (Anderson Matt MD R2) Result Diagram: 03/17/17 0500 03/18/17 0411 Imaging Last Impressions Chest X-Ray 03/18/17 0600 Signed Impressions: Service Date/Time: Saturday, March 18, 2017 03:53 - CONCLUSION: Interval development of complete opacification of the left hemithorax and mediastinal shift towards the left. Rigo Ferguson MD Abdomen X-Ray 03/13/17 0000 Signed Impressions: Service Date/Time: Monday, March 13, 2017 13:04 - CONCLUSION: 1. The tip of the NG tube is just through the GE junction and into the stomach. Cliff Mack MD Brain MRI 03/10/17 0000 Signed Impressions: Service Date/Time: Friday, March 10, 2017 15:01 - CONCLUSION: No acute infarct or other acute intracranial abnormality. Atrophy and chronic white matter changes are again noted. Kilo Rowell MD Chest CT 03/09/17 0000 Signed Impressions: Service Date/Time: Thursday, March 09, 2017 04:59 - CONCLUSION: 1. Marked volume loss in the left hemithorax with near-complete collapse of the left lower lobe/lingula. There is still some aeration in the left upper lung. Some of this is due to the moderate sized left-sided effusion although there may be element of airway obstruction/mucus plugging as well. 2. Small right-sided effusion with become atelectatic changes in the right base. 3. Patchy biapical airspace disease.. Tone Henry MD Shoulder X-Ray 03/05/17 0000 Signed Impressions: Service Date/Time: Sunday, March 05, 2017 20:57 - CONCLUSION: No acute disease. Rick Sanford MD Abdomen/Pelvis CT 03/04/17 0000 Signed Impressions: Service Date/Time: Saturday, March 04, 2017 10:31 - CONCLUSION: 1. There is no hydronephrosis or renal abnormality to explain the renal failure. However, there is subtle high density stranding along the medial and upper pole of the right kidney. Suggest followup CT to assess for change. 2. Abnormal mass arising from or abutting the spleen in the left upper quadrant measuring up to 7.5 cm. It contains a small amount of calcification. Suggest correlating with any prior imaging study that could offer additional characterization. If none are available suggest followup imaging to confirm stability and consider contrast enhanced CT or MRI for further characterization when patient condition permits. 3. Small bilateral pleural effusions, left larger than right, with associated compressive atelectasis. 4. Severe coronary artery calcification. Kilo Coulter MD Renal Ultrasound 02/27/17 0000 Signed Impressions: Service Date/Time: Monday, February 27, 2017 20:36 - CONCLUSION: 1. Mildly dilated left renal collecting system. Kidneys normal in size. Trace free fluid. Ruy Hussein MD Head CT 02/23/17 0000 Signed Impressions: Service Date/Time: Thursday, February 23, 2017 07:38 - CONCLUSION: No significant change has occurred. Maximus Pavon MD Objective Remarks GENERAL: male, lying in bed, eyes open, tracking me with his eyes, and following some commands; he can squeeze my fingers and let go SKIN: Bilateral upper extremities with multiple well-healing scabs HEENT: ETT in place; OGT in place. Pupils grossly symmetrical CARDIOVASCULAR: RRR without appreciable murmurs. grossly normal perfusion. No edema RESPIRATORY: normal rate; clear anterior breath sounds bilaterally, without wheezing GASTROINTESTINAL: Abdomen soft, non-tender, nondistended; + bowel sounds : Not assessed today MUSCULOSKELETAL: no cyanosis or pitting edema NEURO: Awake, will track providers as if alert. responsive to brief attempts at verbal commands. No obvious facial asymmetry. He does move his arms spontaneously and somewhat purposefully. (Anderson Matt MD R2) Date of Insertion: Feb 23, 2017 (Anderson Matt MD R2) A/P Assessment and Plan 57-year-old white male with past medical history of alcohol withdrawal presented to the ED with severe hypoglycemia and altered mental status; patient has had progressively worsening renal function and is currently being followed for renal failure and continued altered mental status. Pt recently required intubation and sedation for respiratory distress and CT with opacification of the left lung concerning for left lung collapse in the context of mucus plugging , which was removed on 03/09. -Pt intubated and sedated on propofol/fentanyl as managed by manager program 03/10-03/12 - Pt having seizure-like activity - neuro consulted, stat Brain MRI w/ o contrast, stat EEG, and Keppra 1g IV bolus, Lactate 1.9 today vs 1.5 yesterday. Repeat EEG still negative. Not having true seizures 03/12: Pt ex-tubated, had increasing O2 requirement, and was subsequently re- intubated. Patient has remained mostly unresponsive with encephalopathy; sedation weaned 03/15 . Palliative care discussed with family; DNR status recommended. Will attempt extubation. 03/18 - chest x-ray showed whiteout of left lung field. Patient underwent flexible bronchoscopy with washing/irrigation and aspiration of mucous plug Discharge Planning Pending workup for declining renal function, AMS, weaning off vent Discussed plan of care with case management assistant and palliative care social services analyst. The palliative care social services analyst in contact with all of the patient's siblings; made DNR/DNI (Anderson Matt MD R2) Attending Attestation Patient seen and examined. Case reviewed and discussed with the resident team. Agree with plan of care as discussed with me and documented in the resident note. poor Mr Faith has never been the same since he had the long hours of severe hypoglycemia. (Betzaida Connolly MD) Problem List: (1) Altered mental status ICD Codes: R41.82 - Altered mental status, unspecified Status: Acute Plan: Patient awake with eyes open, apparently following commands. -Manual Tester consulted and appreciated- hold all sedatives except for bronchoscopy today. Plan to extubate as soon as possible. -Neuro consulted- -stop sedatives -EEG negative; jerking not suspected to be seizure activity -Treat agitation -CIWA tapered -Stopped Librium, stopped Ativan -Haldol 1mg PRN q8hrs for agitation/psychosis -Holding Seroquel 25 mg PO qhs due to being intubated/sedated. 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 He was much more alert at one point. -Continue supportive treatment -Recommend judicious benzodiazepine usage--benzos stopped -May benefit from some type of extended care facility if he does well enough -Occupational therapy recommended OT at rehabilitation (PT recommended OT) when he was at his best. he probably needs full rehab if he improves -ST consulted -regular and thin liquids per ST when he was at his best. patient is dependent with total help required now. -Continue tube feeds/IVF; Seizure precautions Impression: AMS initially suspected secondary to alcoholism; persistent. could be from hypoglycemia UDS positive for Benzos and Cocaine Brain MRI on 02/25- atrophy, periventricular changes without evidence for acute infarction Head CT on admission- no significant change EEG 03/12- diffuse slowing with medication effect and diffuse encephalopathy without focal abnormalities. No seizure activity; jerking episodes witnessed w/ o seizure activity RPR nonreactive CMP on admission with mild hyponatremia (134), transaminase elevations, calcium of 8.1 Hep panel - Hep C reactive Thiamine level high at 325 Ammonia- normal/high (2) Respiratory disease ICD Codes: J98.9 - Respiratory disorder, unspecified Status: Acute Plan: -Continue vent, breathing treatments, O2 per CC/respiratory therapy and attempt to extubate angie -Mucomyst Impression: Progressive worsening of respiratory status 03/09 requiring move to ICU and intubation/sedation and bronchial lavage to remove mucous plugs from both left and right mainstem bronchi. CXR 03/10 with persistent L basilar consolidation/effusion. Improving aeration in right base. Stable position of life support tubes CXR 03/16 stable CXR 03/18 white out of left lung field - patient underwent bronchoscopy with removal of mucous plug; patient has thick secretions, thought to be because of his COPD Bronchial washing cultures: Fungal culture with yeast AFB negative; culture pending Bronchial bacterial culture with light growth of normal ariela (3) SAQIB (acute kidney injury) ICD Codes: N17.9 - Acute kidney failure, unspecified Status: Acute Plan: -Nephrology consulted: Diagnosed with Acute renal failure acute tubular necrosis with drug use, Non oliguric, creatinine is slightly worse. -Changed IVF to NS at 100ml/hr -Monitor BMP -CT abdomen/pelvis- No hydronephrosis. Subtle high density stranding medial/ upper right kidney. Abnormal mass arising from/abutting spleen LUQ measuring up to 7.5 cm with small amount of calcification. Discussed with radiologist. Likely from previous trauma. No further workup indicated. Impression: Patient with SAQIB. Creatinine trended: 0.86 on admission Suspect intrinsic cause as Cr elevation refractory to fluid supplementation, BUN /Cr ratio <20/1, and catheterized Previously on Vancomycin-> discontinued Renal US 02/27 with mild L hydronephrosis; normal kidneys No urine eosinophils Urine random Cr 41.6 Urine random sodium 97 TB testing negative FIDEL negative Cr stable at 2.6-2.95 (4) PNA (pneumonia) ICD Codes: J18.9 - Pneumonia, unspecified organism Status: Resolved Plan: -Continue Duonebs q4h -Continue O2 as needed Impression: Patient with symptoms of cough and intermittent hypoxia to low 90's requiring O2 supplementation; worsening of respiratory disease 03/09 with subsequent intubation and bronchoscopy w/ washing. CXR 03/02 with increasing consolidative changes in the left base. CXR 03/10 with persistent L basilar consolidation/effusion. Improving aeration in right base. Stable position of life support tubes CXR 03/16 stable Initial blood cultures + for staph hominis; subsequently negative 02/26, 03/02 Sputum cultures not obtained Urine Legionella, strep pneumo negative Abx: s/p Azithromycin and Flagyl 03/09-03/15; Cefepime 03/09-03/17 -s/p Solumedrol 40mg IV BID (5) Hypertension ICD Codes: I10 - Essential (primary) hypertension Status: Resolved Plan: Impression: BPs labile -Continue Amlodipine 10mg PO daily -Will hold Hydralazine 25 mg q12h since hypotensive -Metoprolol 100 mg q12h -Clonidine 0.1mg TID -Clonidine 0.1 mg q6h PRN For SBP >/= 180, DBP >/= 100 (6) FEN Status: Acute Plan: Fluids: NS IV at 100ml/hr Electrolytes: Monitor and replace per protocol Nutrition: Tube feeds GI PPx: Lansoprazole 30 mg NG/day VTE prophylaxis: Heparin 5000 units every 12 hours (Anderson Matt MD R2) Problem Qualifiers (1) Altered mental status: Qualified Codes: R41.0 - Disorientation, unspecified (2) PNA (pneumonia): Qualified Codes: J18.9 - Pneumonia, unspecified organism (3) Hypertension: Qualified Codes: I10 - Essential (primary) hypertension Anderson Matt MD R2 Mar 18, 2017 09:36 Betzaida Connolly MD Mar 20, 2017 09:44
[2017-03-18] MEDS: METOPROLOL TARTRATE 100 MG TAB PO SCH ×2 (11:25→21:00)
[2017-03-18] MEDS: HEPARIN SODIUM - SQ 10,000 UNITS/ML VIAL SQ SCH ×2 (11:25→22:23)
[2017-03-18] MEDS ORDERED: ROCURONIUM INJ 50 MG/5 ML VIAL IV PUSH ONE (12:15)
--- NOTE | 2017-03-18 12:19 | HHI.FPPN ---
Subjective Remarks Patient is alert and tracking me with his eyes and following commands this morning. He had decreased breath sounds on the left, and CXR showed white out of left lung. Patient received versed and fentanyl in preparation for bronchoscopy. Washing/irrigation and aspiration of mucus plug was performed at bedside. Still plan to extubate patient today or tomorrow depending on sedation. Objective Vitals Vital Signs Date Time Temp Pulse Resp B/P (MAP) Pulse Ox O2 Delivery O2 Flow Rate FiO2 03/18/17 11:12 100 50 03/18/17 10:45 100 100 03/18/17 10:00 106 03/18/17 08:25 100 100 03/18/17 08:00 40 03/18/17 08:00 99.7 102 29 94/61 (72) 99 03/18/17 08:00 102 03/18/17 07:21 95 35 03/18/17 07:00 96 Mechanical Ventilator 40 03/18/17 07:00 35 03/18/17 06:00 90 03/18/17 04:02 96 35 03/18/17 04:00 45 03/18/17 04:00 94 03/18/17 04:00 97.2 88 19 127/81 (96) 97 03/18/17 02:00 68 03/18/17 01:38 99 35 03/18/17 00:00 40 03/18/17 00:00 98.7 103 18 127/80 (96) 92 03/18/17 00:00 87 03/17/17 22:59 18 03/17/17 22:36 97 35 03/17/17 22:00 101 03/17/17 20:00 98.7 101 27 140/90 (107) 98 03/17/17 20:00 101 03/17/17 20:00 45 03/17/17 19:37 95 40 03/17/17 19:00 99 Mechanical Ventilator 40 03/17/17 18:00 100 03/17/17 16:00 86 03/17/17 16:00 40 03/17/17 16:00 100.3 86 24 109/72 (84) 99 03/17/17 15:16 98 40 03/17/17 14:00 90 I/O 03/17/17 03/17/17 03/17/17 03/18/17 03/18/1717 07:00 15:00 23:00 07:00 15:00 23:00 Intake Total 1636 ml 325 ml 991 ml 850 ml Output Total 375 ml 400 ml 700 ml Balance 1261 ml 325 ml 591 ml 150 ml IV Total 931 ml 325 ml 790 ml Tube Feeding 665 ml 141 ml 450 ml Tube Irrigant 60 ml Other 40 ml 400 ml Output Urine Total 375 ml 400 ml 700 ml Stool Total 0 ml # Bowel Movements 1 2 Result Diagram: 03/17/17 0500 03/18/17 0411 Objective Remarks GENERAL: male, lying in bed, eyes open and following some commands SKIN: Bilateral upper extremities with multiple well-healing scabs HEENT: ETT in place; OGT in place. Pupils grossly symmetrical CARDIOVASCULAR: RRR without appreciable murmurs. grossly normal perfusion. No edema RESPIRATORY: normal rate; clear anterior breath sounds bilaterally, without wheezing GASTROINTESTINAL: Abdomen soft, non-tender, nondistended; + bowel sounds : Not assessed today MUSCULOSKELETAL: LUE with edema NEURO: Awake, will track providers as if alert.responsive to brief attempts at verbal commands. No obvious facial asymmetry. He does move his arms spontaneously and somewhat purposefully. Date of Insertion: Feb 23, 2017 A/P Assessment and Plan 57-year-old white male with past medical history of alcohol withdrawal presented to the ED with severe hypoglycemia and altered mental status; patient has had progressively worsening renal function and is currently being followed for renal failure and continued altered mental status. Pt recently required intubation and sedation for respiratory distress and CT with opacification of the left lung concerning for left lung collapse in the context of mucus plugging , which was removed on 03/09. -Pt intubated and sedated on propofol/fentanyl as managed by counter attendant 03/10-03/12 - Pt having seizure-like activity - neuro consulted, stat Brain MRI w/ o contrast, stat EEG, and Keppra 1g IV bolus, Lactate 1.9 today vs 1.5 yesterday. Repeat EEG still negative. Not having true seizures 03/12 - present: Pt ex-tubated, had increasing O2 requirement, and was subsequently re-intubated. Patient has remained mostly unresponsive with encephalopathy; sedation weaned 03/15 . Palliatice care discussed with family; DNR status recommended. Will attempt extubation. Discharge Planning Pending workup for declining renal function, AMS, weaning off vent Discussed plan of care with casey saw operator and palliative care social studies teacher. The palliative care social studies teacher in contact with all of the patient's siblings; made DNR/DNI Problem List: (1) Altered mental status ICD Codes: R41.82 - Altered mental status, unspecified Status: Acute Plan: Patient awake with eyes open -Neuro consulted- -stop sedatives -EEG negative; jerking not suspected to be seizure activity -Treat agitation -CIWA tapered -Stopped Librium, stopped Ativan -Haldol 1mg PRN q8hrs for agitation/psychosis -Holding Seroquel 25 mg PO qhs due to being intubated/sedated. 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 He was much more alert at one point. -Continue supportive treatment -Recommend judicious benzodiazepine usage--benzos stopped -May benefit from some type of extended care facility if he does well enough -Occupational therapy recommended OT at rehabilitation (PT recommended OT) when he was at his best. he probably needs full rehab if he improves -ST consulted -regular and thin liquids per ST when he was at his best. patient is dependent with total help required now. -Continue tube feeds/IVF Seizure precautions Impression: AMS initially suspected secondary to alcoholism; persistent. could be from hypoglycemia UDS positive for Benzos and Cocaine Brain MRI on 02/25- atrophy, periventricular changes without evidence for acute infarction Head CT on admission- no significant change EEG 03/12- diffuse slowing with medication effect and diffuse encephalopathy without focal abnormalities. No seizure activity; jerking episodes witnessed w/ o seizure activity RPR nonreactive CMP on admission with mild hyponatremia (134), transaminase elevations, calcium of 8.1 Hep panel - Hep C reactive Thiamine level high at 325 Ammonia- normal/high (2) Respiratory disease ICD Codes: J98.9 - Respiratory disorder, unspecified Status: Acute Plan: Impression: Progressive worsening of respiratory status 03/09 requiring move to ICU and intubation/sedation and bronchial lavage to remove mucous plugs from both left and right mainstem bronchi. CXR 03/10 with persistent L basilar consolidation/effusion. Improving aeration in right base. Stable position of life support tubes CXR 03/16 stable Bronchial washing cultures: Fungal culture with yeast AFB negative; culture pending Bronchial bacterial culture with light growth of normal ariela -Continue CPAP, O2 per CC/respiratory therapy and attempt to extubate (3) PNA (pneumonia) ICD Codes: J18.9 - Pneumonia, unspecified organism Status: Acute Plan: -Continue Cefepime 2g IV renally dosed s/p Azithromycin and Flagyl 03/09-03/15 -s/p Solumedrol 40mg IV BID -Continue Duonebs q4h -Continue O2 as needed Impression: Patient with symptoms of cough and intermittent hypoxia to low 90's requiring O2 supplementation; worsening of respiratory disease 03/09 with subsequent intubation and bronchoscopy w/ washing. CXR 03/02 with increasing consolidative changes in the left base. CXR 03/10 with persistent L basilar consolidation/effusion. Improving aeration in right base. Stable position of life support tubes CXR 03/16 stable Initial blood cultures + for staph hominis; subsequently negative 02/26, 03/02 Sputum cultures not obtained Urine Legionella, strep pneumo negative (4) Hypertension ICD Codes: I10 - Essential (primary) hypertension Status: Resolved Plan: Impression: BP with MAP in upper 60's-80's. -Continue Amlodipine 10mg PO daily -Will hold Hydralazine 25 mg q12h since hypotensive -Metoprolol 100 mg q12h -Clonidine 0.1mg TID -Clonidine 0.1 mg q6h PRN For SBP >/= 180, DBP >/= 100 (5) FEN Status: Acute Plan: Fluids: none Electrolytes: Monitor and replace per protocol Nutrition: Tube feeds GI PPx: Lansoprazole 30 mg NG/day VTE prophylaxis: Heparin 5000 units every 12 hours (6) SAQIB (acute kidney injury) ICD Codes: N17.9 - Acute kidney failure, unspecified Status: Acute Plan: -Nephrology consulted: Diagnosed with Acute renal failure acute tubular necrosis with drug use, Non oliguric, creatinine is slightly worse. -Changed IVF to NS at 100ml/hr -Monitor BMP -CT abdomen/pelvis- No hydronephrosis. Subtle high density stranding medial/ upper right kidney. Abnormal mass arising from/abutting spleen LUQ measuring up to 7.5 cm with small amount of calcification. Discussed with radiologist. Likely from previous trauma. No further workup indicated. Impression: Patient with SAQIB. Creatinine trended: 0.86 on admission Suspect intrinsic cause as Cr elevation refractory to fluid supplementation, BUN /Cr ratio <20/1, and catheterized Previously on Vancomycin-> discontinued Renal US 02/27 with mild L hydronephrosis; normal kidneys No urine eosinophils Urine random Cr 41.6 Urine random sodium 97 TB testing negative FIDEL negative Cr stable at 2.6-2.95 Problem Qualifiers (1) Altered mental status: Qualified Codes: R41.0 - Disorientation, unspecified (2) PNA (pneumonia): Qualified Codes: J18.9 - Pneumonia, unspecified organism (3) Hypertension: Qualified Codes: I10 - Essential (primary) hypertension Anderson Matt MD R2 Mar 18, 2017 12:19
[2017-03-18] MEDS: cloNIDine HCL 0.1 MG TAB PO PRN (13:17)
--- NOTE | 2017-03-18 13:19 | RADRPT ---
EXAM DATE/TIME: 03/18/2017 12:50 [facility] COMPARISON: CHEST SINGLE AP, March 18, 2017, 3:53. INDICATIONS : Posts bronchoscope MEDICAL HISTORY : Hepatitis C. Myocardial infarction. Seizures, arthritis, depression SURGICAL HISTORY : None. ENCOUNTER: Subsequent ACUITY: 3 weeks PAIN SCORE: Non-responsive. LOCATION: chest FINDINGS: A single view of the chest demonstrates marked improved aeration of the left lung which was previousl y a completely opacified. There is still some consolidation/effusion in the left perihilar distributi on in left base but there is marked improvement in the upper lobe. No pneumothorax post bronchoscopy. Increased parenchymal density may represent some reexpansion edema. Right lung remains clear. Endotr acheal and nasogastric tubes are unchanged in position. Nasogastric tube is somewhat shallow with the side-port at the GE junction. Heart size is upper limits of normal. Osseous structures are intact wi th some degenerative spurring of the dorsal spine. Old healed fracture deformities of the posterolate ral left mid chest. CONCLUSION: 1. Markedly improved aeration in the left hemithorax. This was previously completely opacified. 2. There is some increased perihilar density with a left basilar effusion. This may represent some re sidual fluid and/ or reexpansion edema. 3. Right lung remains clear. 4. Stable position of life support tubes. Nasogastric tube could be advanced a few centimeters. The s luz-port is at the GE junction. Tone Henry MD on March 18, 2017 at 13:12 Board Certified Radiologist. This report was verified electronically.
--- NOTE | 2017-03-18 13:31 | HHI.NPPN ---
Subjective History of Present Illness 57-year-old male with the alcohol withdrawal, altered mental status, acute renal failure Additional Remarks Patient remain on the vent. and awake, following some commands. Objective Data Data Vital Signs Date Time Temp Pulse Resp B/P (MAP) Pulse Ox O2 Delivery O2 Flow Rate FiO2 03/18/17 13:20 40 03/18/17 12:00 99.2 93 18 147/101 (116) 100 03/18/17 12:00 93 03/18/17 12:00 100 03/18/17 11:12 100 50 03/18/17 11:00 100 03/18/17 10:45 100 100 03/18/17 10:00 106 03/18/17 08:25 100 100 03/18/17 08:00 40 03/18/17 08:00 99.7 102 29 94/61 (72) 99 03/18/17 08:00 102 03/18/17 07:21 95 35 03/18/17 07:00 96 Mechanical Ventilator 40 03/18/17 07:00 35 03/18/17 06:00 90 03/18/17 04:02 96 35 03/18/17 04:00 45 03/18/17 04:00 94 03/18/17 04:00 97.2 88 19 127/81 (96) 97 03/18/17 02:00 68 03/18/17 01:38 99 35 03/18/17 00:00 40 03/18/17 00:00 98.7 103 18 127/80 (96) 92 03/18/17 00:00 87 03/17/17 22:59 18 03/17/17 22:36 97 35 03/17/17 22:00 101 03/17/17 20:00 98.7 101 27 140/90 (107) 98 03/17/17 20:00 101 03/17/17 20:00 45 03/17/17 19:37 95 40 03/17/17 19:00 99 Mechanical Ventilator 40 03/17/17 18:00 100 03/17/17 16:00 86 03/17/17 16:00 40 03/17/17 16:00 100.3 86 24 109/72 (84) 99 03/17/17 15:16 98 40 03/17/17 14:00 90 -: 03/17/17 0500 03/18/17 0411 Physical Exam General Appearance: Malnourished Appearance Remarks Intubated and awake. Eyes Eye Exam: Pupils Equal Throat Throat Exam: Oral Mucosa [place] & Moist Neck Neck Exam: Neck Supple Pulmonary Resp Exam: Crackles, Rhonchi, Decreased Bases, Diminished Breath Sounds Cardiology CV Exam: Regular, Normal Sinus Rhythm Gastrointestinal/Abdomen GI Exam: Soft, Non-Tender, Bowel Sounds Present Extremeties Extremities Exam: Trace Edema Neurologic Neuro Exam: Obtunded Assessment/Plan Problem List: (1) SAQIB (acute kidney injury) ICD Codes: N17.9 - Acute kidney failure, unspecified Status: Acute Plan: Acute renal failure acute tubular necrosis with drug use Non oliguric, creatinine is stable at 2.67 replace K Hepatitis C positive Ammonia not high s/p bronchoscopy with removal of mucous plug self extubated CT scan abdominal reviewed Subtle high density stranding medial/upper right kidney. Abnormal mass arising from/abutting spleen LUQ measuring up to 7.5 cm with small amount of calcification. FIDEL is positive 1:80, low titre. Creatinine is stable at 2.9, Urine out put is better. Follow urine out put and BMP. send Anti DNA as FIDEL was positive. (2) Alcohol withdrawal ICD Codes: F10.239 - Alcohol dependence with withdrawal, unspecified Status: Chronic Plan: Patient remained in altered mental status (3) Hypertension ICD Codes: I10 - Essential (primary) hypertension Status: Resolved Plan: Patient's blood pressure was labile continue to monitor Problem Qualifiers (1) Alcohol withdrawal: Qualified Codes: F10.231 - Alcohol dependence with withdrawal delirium (2) Hypertension: Qualified Codes: I10 - Essential (primary) hypertension Gilbert Quan MD Mar 18, 2017 13:31
--- NOTE | 2017-03-18 14:03 | PD.PROCEDR ---
Procedure Note Procedure Procedure: Bronchoscopy with bronchoalveolar lavage DATE: 03/18/2017 INDICATION: Complete LLL collapse with mucous plugging DESCRIPTION OF THE PROCEDURE The patient was placed in supine position. The ventilator was ACV 16/500/5/100 %. Sedated with 5 mg IV Versed, 200 g fentanyl, and rocuronium 100 mg IV 1. Saturations 100%. I entered the 8.0 ET tube with flexible bronchoscopy. The entire left main bronchus was blocked with thick white tenacious secretions. Also left upper and lower lobe bronchi including the subsegmental bronchi were blocked with secretions. These were lavaged copiously with multiple saline washings. Mucosa was normal. Right bronchi including subsegmental bronchi was devoid of any major secretions ESTIMATED BLOOD LOSS: Minimal COMPLICATIONS: No apparent complications. Chest x-ray pending at this time Grace Boateng MD Mar 18, 2017 14:03
[2017-03-18] MEDS ORDERED: BUMETANIDE INJ 1 MG/4 ML VIAL IV PUSH ONE (18:30)
[2017-03-18] MEDS ORDERED: MORPHINE SULFATE 8 MG/ML INJ IV PUSH PRN (20:00)
[2017-03-19] VITALS (15 sets, daily range): BP systolic 116–140; BP diastolic 78–94; PULSE 76–98; RESP 12–22; TEMP 96.7–98.9; O2SAT 89–100
[2017-03-19] MEDS: LORazepam 2 MG/ML VIAL IV PUSH PRN (03:12)
[2017-03-19] MEDS: RESP: ALBUTEROL 2.5 MG/IPRATROPIUM 0.5 MG NEB (SCH) NEB ×6 (03:54→23:11)
[2017-03-19] MEDS: ARTIFICIAL TEARS OPTH SOLN 15 ML BTL EACH EYE SCH ×3 (06:00→20:05)
[2017-03-19 07:08] LABS: AUTOMATED NEUTROPHIL # 5.7 TH/MM3 (1.8-7.7); BASOPHIL % 0.2 % (0.0-2.0); HEMATOCRIT 34.8 % (39.0-51.0); HEMO FLAGS DIFF FINAL; LYMPH % 13.5 % (9.0-44.0); LYMPHOCYTE # 0.9 TH/MM3 (1.0-4.8); MEAN CELL VOLUME 102.1 FL (80.0-100.0); MEAN CORPUSCULAR HEMOGLOBIN 33.6 PG (27.0-34.0); MEAN CORPUSCULAR HGB CONC 32.9 % (32.0-36.0); MONO % 4.3 % (0.0-8.0); PLATELET COUNT 104 TH/MM3 (150-450); RED BLOOD COUNT 3.41 MIL/MM3 (4.50-5.90); WHITE BLOOD COUNT 6.9 TH/MM3 (4.0-11.0)
[2017-03-19] MEDS ORDERED: MORPHINE SULFATE 4 MG/ML INJ IV PUSH PRN (07:15)
[2017-03-19] MEDS ORDERED: BUMETANIDE INJ 1 MG/4 ML VIAL IV PUSH ONE (07:30)
--- NOTE | 2017-03-19 07:30 | HHI.CCPN ---
Subjective Remarks/Hospital Course This is a 57-year-old male that was found down and admitted to this hospital 02/23/2017. Urine tox screen revealed patient was positive for benzodiazepines and cocaine at that time. Since admission the patient has been on a [facility] protocol, neurology has been consulted Dr. Wayne, with continued supportive care. Over the last 48 hours the patient was noted to have elevation in his creatinine with a significant decrease in urine output acute renal failure nephrology was consulted the patient continues on gentle diuresis and received 80 mg of Lasix IV this afternoon and is currently on sodium bicarbonate infusion at 110 cc/an hour. Due to the patient's respiratory insufficiency, and altered mental status concern for possible continued respiratory decompensation the patient was transferred to the ICU, and critical care was consulted for management. Upon entering the patient's room the patient was noted to be lethargic having received 4 mg of Ativan in the last 4 hours, but opens eyes to sternal rub. The patient was noted to have O2 saturation of 95% on O2 via nasal cannula at 5 L with no accessory respiratory efforts. Stat ABG was ordered pending, to rule out CO2 narcosis. Since admission to ICU the patient was noted to diuresis of 700 cc. 03/03: Afebrile. The patient did not receive any Ativan since 3 PM on 03/02/17. The patient rested well overnight, eventually waking and responding. This a.m. the patient's noted to be sitting up in bed, alert and responsive. Librium has been added to medication regimen for alcohol withdrawal. Noted to be oriented to date of unable to provide name or place at this time. Essential tremors, fine tremors noted. The patient severely weak and unable to feed self without assistance. The patient's diet was advanced to regular diet, tolerating well, 100% consumption. PO meds were held since admission to ICU secondary to lethargy, all by mouth meds resumed this a.m.. The patient currently is compliant following commands, inappropriate responses, with noted incomprehensible words, language at times. Patient is noted to be very weak. Nasal cannula O2 has been weaned down to approximately 3 L, the patient appears in no respiratory distress. Subjective: 03/09: Reconsulted secondary acute respiratory failure. Chest x-ray earlier in the morning revealed collapse versus large pleural effusion left side. Patient oxygen requirements had increased from 4 L to a nonrebreather mask. CT thorax revealed likely mucous plugging/collapsed lung left side. Small to moderate left pleural effusion. Patient was combative upon arrival ICU in place in soft restraints. Due to mental status/mucous plugging patient was electively intubated using 20 mg etomidate and 50 mg, rocuronium. Patient was bronched which revealed thick white mucous plugging in the left and right mainstem. These were lavaged to left upper lobe/lingula and left lower lobe, right upper middle and lower lobes. Samples were sent see orders. Currently sedated with propofol and fentanyl drips. 03/10: Tonic seizures today when propofol stopped. Seizures ceased with propofol bolus. Left pneumonia persists but improved aeration after bronch . 03/11: Gas exchange acceptable. Continues to have tonic "seizures" when propofol is lightened. EEG 03/10 states no seizures but we will repeat EEG again today with stimulation and off propofol. Can't extubate until this "seizure" activity is resolved. Vomited tube feeds, will reduce and add reglan. 03/12: Off sedation tolerating CPAP even though intermittently apneic. Appears to follows commands but weekly on the upper extremity. No obvious seizures. EEG negative for seizure 03/11/17. Creatinine slightly improved to 2.8 from 3 03/13: Failed extubation on 03/12. Currently sedated, orally intubated on mechanical ventilation. Has thick copious respiratory secretions per STAFF DEVELOPMENT COORDINATOR. 03/14: Remains sedated, orally intubated on mechanical ventilation. Feeling C Pap trials. Not following commands on lightening sedation. 03/15: Remains intubated encephalopathy. Left lower lobe infiltrate again indicating probable mucous plugging/collapse. Palliative care meeting with family today. I recommend tracheostomy and PEG tube placement. D/W palliative care team 03/16: Off sedation since yesterday 5PM. Eyes open spontaneously. Following commands bilateral upper extremity, he squeezes with both hands. Discussed with Dr. Kingston. Will continue weaning attempt with plan for wean to extubate. s/p bronchoscopy yesterday, with re expansion of L lung. Has moderate secretions. I have updated Lore Darling (sister) about improvement in neuro exam. See below 03/17: Tolerated CPAP 7 hours yesterday. Currently on CPAP. Lethargic/somnolent but follows commands, gives thumbs up on bilateral UE. Creat stable. UO 750 ml in 24 hours. BAL negative to date 03/18: Remains intubated off sedation. There is further improvement in neuro exam, able to move both feet to command, gives thumbs up on both upper extremities. Chest x-ray shows complete white out of the left lung field. We' ll plan for emergency bronchoscopy 03/19: Extubated yesterday, overnight appeared to be having mucus plugging involving L lung. But currently patient is saturating well. He somnolent but wakes up easily and nodding appropriately and following commands, in the bilateral upper extremity Objective Vital Signs Date Time Temp Pulse Resp B/P (MAP) Pulse Ox O2 Delivery O2 Flow Rate FiO2 03/19/17 06:00 82 03/19/17 04:00 97.8 13 140/94 (109) 100 03/19/17 03:56 Venturi Mask 6.00 50 Intake and Output 03/19/17 03/19/17 03/20/17 08:00 16:00 00:00 Output Total 1000 ml Balance -1000 ml Result Diagram: 03/19/17 0648 03/18/17 0411 Imaging Last Impressions Shoulder X-Ray 03/05/17 0000 Signed Impressions: Service Date/Time: Sunday, March 05, 2017 20:57 - CONCLUSION: No acute disease. Rick Sanford MD Abdomen/Pelvis CT 03/04/17 0000 Signed Impressions: Service Date/Time: Saturday, March 04, 2017 10:31 - CONCLUSION: 1. There is no hydronephrosis or renal abnormality to explain the renal failure. However, there is subtle high density stranding along the medial and upper pole of the right kidney. Suggest followup CT to assess for change. 2. Abnormal mass arising from or abutting the spleen in the left upper quadrant measuring up to 7.5 cm. It contains a small amount of calcification. Suggest correlating with any prior imaging study that could offer additional characterization. If none are available suggest followup imaging to confirm stability and consider contrast enhanced CT or MRI for further characterization when patient condition permits. 3. Small bilateral pleural effusions, left larger than right, with associated compressive atelectasis. 4. Severe coronary artery calcification. Kilo Coulter MD Chest X-Ray 03/02/17 0000 Signed Impressions: Service Date/Time: Thursday, March 02, 2017 08:18 - CONCLUSION: Increasing consolidative changes left base. Nasir Mack MD FACR Renal Ultrasound 02/27/17 0000 Signed Impressions: Service Date/Time: Monday, February 27, 2017 20:36 - CONCLUSION: 1. Mildly dilated left renal collecting system. Kidneys normal in size. Trace free fluid. Ruy Hussein MD Brain MRI 02/25/17 0000 Signed Impressions: Service Date/Time: Saturday, February 25, 2017 12:37 - CONCLUSION: Atrophy, periventricular changes without evidence for acute infarction. Nasir Mack MD FACR Head CT 02/23/17 0000 Signed Impressions: Service Date/Time: Thursday, February 23, 2017 07:38 - CONCLUSION: No significant change has occurred. Maximus Pavon MD Objective Remarks GENERAL: 57-year-old male, somnolent but wakes up easily. Follows commands bilateral upper and lower extremity SKIN: Warm and dry. Clean gauze dressing right forearm HEAD: Atraumatic. Normocephalic. EYES: Pupils equal and round around 2 mm bilaterally and reactive. No scleral icterus. No injection or drainage. ENT: No nasal bleeding or discharge. Mucous membranes pink and moist. NECK: Trachea midline. CARDIOVASCULAR: RRR. S1, S2 no S4. Without murmur. No JVD. RESPIRATORY: Slightly diminished breath sounds left lung thomas. Few coarse rhonchi. GASTROINTESTINAL: Abdomen soft, non-tender, nondistended. Active bowel sounds appreciated MUSCULOSKELETAL: Extremities without without significant peripheral edema. No obvious deformities. Right forearm dressing NEUROLOGICAL: Somnolent but wakes up easily, nodding appropriately to questions , follows commands bilateral upper and lower extremities. Moves all extremities spontaneously. Date of Insertion: Feb 23, 2017 A/P Assessment and Plan Neuro/Psych: Encephalopathy/Delirium most likely metabolic Admission with EtOH withdrawal - likely completed Polysubstance abuse including cocaine and benzodiazepines Polyneuropathy of critical illness Off all sedation since 5 PM 03/15/17. Improved neuro exam. Follows commands Patient is followed by Dr. Rogel neurology. EEG's reveal moderate encephalopathy no epileptiform activity. MRI negative for acute findings Previously on Seroquel 25 mg at night and Haldol when necessary-Haldol discontinued 03/15/17 Librium DCd 03/15/17 Seizure precautions ?Seizures 03/10. Continue thiamine 100 mg daily Use Morphine for shortness of breath respiratory distress. Transition to comfort measures only if there is significant respiratory decline Respiratory: Acute hypoxemic respiratory failure secondary to aspiration Recurrent left lower lobe collapse/mucus plugging Complete opacification of left lung field due to mucus plugging 03/18/70 Status post extubation after therapeutic bronchoscopy 03/18/17 s/p Bronchoscopy 03/15. L main bronchus had mucus plugging. Use BiPAP PRN. Albuterol/ipratropium aerosols every 4 hours with albuterol aerosols every 2 hours. PRN IV Solumedrol 60 q12 03/17/17 CT thorax from 03/09 revealed collapse left upper/lingula lobes with significant secretions left main bronchus. s/p bronch Improved aeration 03/10 Cardiovascular: Hypertension Amlodipine 10 mg daily, clonidine 0.1 mg 3 times a day and metoprolol 5 mg by mouth twice a day for hypertension, with holding parameters Maintain MAP > 65 mmHG Renal: Acute kidney injury secondary to ATN Nephrology following Dr. Martinez. Creat 2.9 03/18. UO 1300 ml in 24 hours DC all IVMF. Accurate I's and O's, Monitor urine output. Continue Hall catheter due to worsening renal failure No signs of hydronephrosis on renal imaging,Urine eosinophils negative FEN/GI: Mild protein calorie malnutrition Hyperkalemia-resolved Hep C NPO except meds Lansoprazole for GI prophylaxis Docusate sodium senna 1 tablet twice a day for bowel regimen. Having daily BM Heme/ID: Macro Anemia Thrombocytopenia Pneumonia F/U BAL 03/15-neg to date On previous cultures in BAL have been negative except 02/23 coag negative staph which is contamination Currently on cefepime. DC today, DCd Flagyl and azithromycin 03/09/17-03/15/17 Endocrine: Sliding-scale insulin to maintain euglycemia/low regimen with NovoLog every 6 hours Prophylaxis: GI Prophylaxis Lansoprazole DVT Prophylaxis -- SCDs/heparin subcutaneous Lines: Peripheral IVs providing adequate access at this time. Palliative care team following to assist with deciding goals of therapy. Level 3 Overall impression: Critically ill with recurrent mucus plugging and hypoxemic respiratory failure. Left lung more well aerated after bronchoscopy. Failed extubation on 9/18 and required reintubation. DNR, extubated 03/18, but continue aggressive care unless significant respiratory decline 03/15/17 I discussed and updated Lore Darling (sister) over the phone: . I explained to her improvement in neurological status. She is agreeable to continued care since there is improvement, and she does not want any other invasive procedures at this time and if there is any further clinical deterioration she wants to pursue comfort measures Grace Boateng MD Mar 19, 2017 07:30
--- NOTE | 2017-03-19 08:16 | HHI.PR ---
Objective Vital Signs Date Time Temp Pulse Resp B/P (MAP) Pulse Ox O2 Delivery O2 Flow Rate FiO2 03/19/17 08:11 96 Nasal Cannula 2.00 03/19/17 06:00 82 03/19/17 04:00 80 03/19/17 04:00 97.8 80 13 140/94 (109) 100 03/19/17 03:56 100 Venturi Mask 6.00 50 03/19/17 02:00 82 03/19/17 00:00 86 03/19/17 00:00 96.7 86 14 120/78 (92) 100 03/18/17 23:35 100 35 03/18/17 22:29 18 03/18/17 22:00 102 03/18/17 20:48 100 40 03/18/17 20:00 99 03/18/17 20:00 96 Bi-Pap 40 03/18/17 20:00 98.0 99 26 140/95 (110) 96 03/18/17 18:14 95 45 03/18/17 18:00 87 Venturi Mask 50 03/18/17 18:00 89 03/18/17 16:00 87 03/18/17 16:00 99.0 87 20 132/94 (107) 99 03/18/17 15:50 Nasal Cannula 4.00 03/18/17 15:40 98 Nasal Cannula 5 03/18/17 15:40 98 Nasal Cannula 5.00 03/18/17 15:35 99 Nasal Cannula 5.00 03/18/17 14:53 35 03/18/17 14:00 84 03/18/17 13:20 40 03/18/17 12:00 99.2 93 18 147/101 (116) 100 03/18/17 12:00 93 03/18/17 12:00 100 03/18/17 11:12 100 50 03/18/17 11:00 100 03/18/17 10:45 100 100 03/18/17 10:00 106 03/18/17 08:25 100 100 I/O 03/18/17 03/18/17 03/18/17 03/19/17 03/19/17 03/19/17 07:00 15:00 23:00 07:00 15:00 23:00 Intake Total 850 ml 765 ml 500 ml Output Total 700 ml 350 ml 1000 ml Balance 150 ml 765 ml 150 ml -1000 ml IV Total 765 ml 500 ml Tube Feeding 450 ml Other 400 ml Output Urine Total 700 ml 350 ml 1000 ml Stool Total 0 ml # Bowel Movements 1 1 Result Diagram: 03/19/17 0648 03/18/17 0411 Objective Remarks very lethargic and agonal resp opens eyes and arouses to voice Assessment and Plan Assessment and Plan imp i dw dr garcia consider narcan and mazicon and if not any more alert and better then maybe comfort measures? as looks very poor resp walsh Raul Kingston MD Mar 19, 2017 08:16
[2017-03-19] MEDS: RESP: ACETYLCYSTEINE 20% 30 ML NEB NEB SCH ×4 (08:34→23:11)
[2017-03-19] MEDS: methylPREDNISolone SOD SUCC 125 MG/2 ML VIAL IV PUSH SCH ×2 (08:52→20:05)
[2017-03-19] MEDS: SODIUM CHLORIDE 0.9% FLUSH 10 ML FLUSH IV FLUSH SCH ×2 (08:52→20:00)
[2017-03-19] MEDS: BENEPROTEIN POWDER 1 PACK G-TUBE SCH ×3 (08:55→18:00)
[2017-03-19] MEDS: CHLORHEXIDINE 0.12% (ORAL KIT) 15 ML CUP MT SCH ×2 (08:55→19:58)
[2017-03-19] MEDS: LANSOPRAZOLE SOLUTAB 30 MG TAB NG SCH (08:55)
[2017-03-19] MEDS: METOPROLOL TARTRATE 100 MG TAB PO SCH ×2 (08:56→20:05)
[2017-03-19] MEDS: THIAMINE HCL 100 MG TAB PO SCH (08:56)
[2017-03-19] MEDS: MULTIVITAMIN TAB PO SCH (08:56)
--- NOTE | 2017-03-19 09:38 | HHI.FPPN ---
Subjective Remarks Patient had bronchoscopy with mucous plug removal yesterday and then was extubated successfully. Patient is satting in the 90s on 2 L nasal cannula. He is lying in bed and appears to be back to his baseline for this admission. Patient is awake and alert with eyes open, tracking me with his eyes. He is able to vocalize responses to my questions, but he is whispering and muttering and I cannot understand him. (Anderson Matt MD R2) Objective Vitals Vital Signs Date Time Temp Pulse Resp B/P (MAP) Pulse Ox O2 Delivery O2 Flow Rate FiO2 03/19/17 08:11 96 Nasal Cannula 2.00 03/19/17 06:00 82 03/19/17 04:00 80 03/19/17 04:00 97.8 80 13 140/94 (109) 100 03/19/17 03:56 100 Venturi Mask 6.00 50 03/19/17 02:00 82 03/19/17 00:00 86 03/19/17 00:00 96.7 86 14 120/78 (92) 100 03/18/17 23:35 100 35 03/18/17 22:29 18 03/18/17 22:00 102 03/18/17 20:48 100 40 03/18/17 20:00 99 03/18/17 20:00 96 Bi-Pap 40 03/18/17 20:00 98.0 99 26 140/95 (110) 96 03/18/17 18:14 95 45 03/18/17 18:00 87 Venturi Mask 50 03/18/17 18:00 89 03/18/17 16:00 87 03/18/17 16:00 99.0 87 20 132/94 (107) 99 03/18/17 15:50 Nasal Cannula 4.00 03/18/17 15:40 98 Nasal Cannula 5 03/18/17 15:40 98 Nasal Cannula 5.00 03/18/17 15:35 99 Nasal Cannula 5.00 03/18/17 14:53 35 03/18/17 14:00 84 03/18/17 13:20 40 03/18/17 12:00 99.2 93 18 147/101 (116) 100 03/18/17 12:00 93 03/18/17 12:00 100 03/18/17 11:12 100 50 03/18/17 11:00 100 03/18/17 10:45 100 100 03/18/17 10:00 106 I/O 03/18/17 03/18/17 03/18/17 03/19/17 03/19/17 03/19/17 07:00 15:00 23:00 07:00 15:00 23:00 Intake Total 850 ml 765 ml 500 ml Output Total 700 ml 350 ml 1000 ml Balance 150 ml 765 ml 150 ml -1000 ml IV Total 765 ml 500 ml Tube Feeding 450 ml Other 400 ml Output Urine Total 700 ml 350 ml 1000 ml Stool Total 0 ml # Bowel Movements 1 1 (Anderson Matt MD R2) Result Diagram: 03/19/17 0648 03/18/17 0411 Imaging Last Impressions Chest X-Ray 03/18/17 0600 Signed Impressions: Service Date/Time: Saturday, March 18, 2017 03:53 - CONCLUSION: Interval development of complete opacification of the left hemithorax and mediastinal shift towards the left. Rigo Ferguson MD Abdomen X-Ray 03/13/17 0000 Signed Impressions: Service Date/Time: Monday, March 13, 2017 13:04 - CONCLUSION: 1. The tip of the NG tube is just through the GE junction and into the stomach. Cliff Mack MD Brain MRI 03/10/17 0000 Signed Impressions: Service Date/Time: Friday, March 10, 2017 15:01 - CONCLUSION: No acute infarct or other acute intracranial abnormality. Atrophy and chronic white matter changes are again noted. Kilo Rowell MD Chest CT 03/09/17 0000 Signed Impressions: Service Date/Time: Thursday, March 09, 2017 04:59 - CONCLUSION: 1. Marked volume loss in the left hemithorax with near-complete collapse of the left lower lobe/lingula. There is still some aeration in the left upper lung. Some of this is due to the moderate sized left-sided effusion although there may be element of airway obstruction/mucus plugging as well. 2. Small right-sided effusion with become atelectatic changes in the right base. 3. Patchy biapical airspace disease.. Tone Henry MD Shoulder X-Ray 03/05/17 0000 Signed Impressions: Service Date/Time: Sunday, March 05, 2017 20:57 - CONCLUSION: No acute disease. Rick Sanford MD Abdomen/Pelvis CT 03/04/17 0000 Signed Impressions: Service Date/Time: Saturday, March 04, 2017 10:31 - CONCLUSION: 1. There is no hydronephrosis or renal abnormality to explain the renal failure. However, there is subtle high density stranding along the medial and upper pole of the right kidney. Suggest followup CT to assess for change. 2. Abnormal mass arising from or abutting the spleen in the left upper quadrant measuring up to 7.5 cm. It contains a small amount of calcification. Suggest correlating with any prior imaging study that could offer additional characterization. If none are available suggest followup imaging to confirm stability and consider contrast enhanced CT or MRI for further characterization when patient condition permits. 3. Small bilateral pleural effusions, left larger than right, with associated compressive atelectasis. 4. Severe coronary artery calcification. Kilo Coulter MD Renal Ultrasound 02/27/17 0000 Signed Impressions: Service Date/Time: Monday, February 27, 2017 20:36 - CONCLUSION: 1. Mildly dilated left renal collecting system. Kidneys normal in size. Trace free fluid. Ruy Hussein MD Head CT 02/23/17 0000 Signed Impressions: Service Date/Time: Thursday, February 23, 2017 07:38 - CONCLUSION: No significant change has occurred. Maximus Pavon MD Objective Remarks GENERAL: male, lying in bed, eyes open, tracking me with his eyes, and trying to respond, but he is muttering and whispering and incoherent, which is baseline for this admission SKIN: Bilateral upper extremities with multiple well-healing scabs HEENT: Pupils grossly symmetrical CARDIOVASCULAR: RRR without appreciable murmurs. grossly normal perfusion. No edema RESPIRATORY: normal rate; clear anterior breath sounds bilaterally, without wheezing GASTROINTESTINAL: Abdomen soft, non-tender, nondistended; + bowel sounds MUSCULOSKELETAL: no cyanosis or pitting edema NEURO: Awake and alert with eyes open, tracking providers, but somnolent with heavy eyelids. attempts to verbalize responses, but incoherent. No obvious facial asymmetry. muscle fasciculations of right UE noted. (Anderson Matt MD R2) Date of Insertion: Feb 23, 2017 (Anderson Matt MD R2) A/P Assessment and Plan 57-year-old white male with past medical history of alcohol withdrawal presented to the ED with severe hypoglycemia and altered mental status; patient has had progressively worsening renal function and is currently being followed for renal failure and continued altered mental status. Pt recently required intubation and sedation for respiratory distress and CT with opacification of the left lung concerning for left lung collapse in the context of mucus plugging , which was removed on 03/09 and again on 03/18. -Pt intubated and sedated on propofol/fentanyl as managed by machine design teacher 03/10-03/12 - Pt having seizure-like activity - neuro consulted, stat Brain MRI w/ o contrast, stat EEG, and Keppra 1g IV bolus, Lactate 1.9 today vs 1.5 yesterday. Repeat EEG still negative. Not having true seizures 03/12: Pt ex-tubated, had increasing O2 requirement, and was subsequently re- intubated. Patient has remained mostly unresponsive with encephalopathy; sedation weaned 03/15 . Palliative care discussed with family; DNR status recommended. Will attempt extubation. 03/18 - chest x-ray showed whiteout of left lung field. Patient underwent flexible bronchoscopy with washing/irrigation and aspiration of mucous plug and successful extubation 03/19 - patient awake and alert and back to baseline for this admission Discharge Planning Pending workup for declining renal function, AMS, weaning off vent Discussed plan of care with machine adjuster leader case trim and palliative care social work job titles. The palliative care social work job titles in contact with all of the patient's siblings; made DNR/DNI (Anderson Matt MD R2) Attending Attestation Patient examined and case discussed with resident physicians I have read the above note and agree with the assessment/plan as discussed with me I was involved in all medical decision making for this patient Aris Martinez M.D. (Aris Martinez MD) Problem List: (1) Altered mental status ICD Codes: R41.82 - Altered mental status, unspecified Status: Acute Plan: Patient awake and alert and extubated (03/18/17), but unclear if patient has capacity to make any medical decisions. -Inspector [employer] consulted and appreciated- extubated and satting well on RA -Neuro consulted- -stop sedatives -EEG negative; jerking not suspected to be seizure activity -Treat agitation -CIWA tapered -Stopped Librium, stopped Ativan -d/c Haldol 1mg PRN q8hrs for agitation/psychosis -Holding Seroquel 25 mg PO qhs due to being intubated/sedated. 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 He was much more alert at one point. -Continue supportive treatment -Recommend judicious benzodiazepine usage--benzos stopped -May benefit from some type of extended care facility if he does well enough -Occupational therapy recommended OT at rehabilitation (PT recommended OT) when he was at his best. he probably needs full rehab if he improves -ST consulted -regular and thin liquids per ST when he was at his best. patient is dependent with total help required now. -Continue tube feeds/IVF; Seizure precautions Impression: AMS initially suspected secondary to alcoholism; persistent. could be from hypoglycemia UDS positive for Benzos and Cocaine Brain MRI on 02/25- atrophy, periventricular changes without evidence for acute infarction Head CT on admission- no significant change EEG 03/12- diffuse slowing with medication effect and diffuse encephalopathy without focal abnormalities. No seizure activity; jerking episodes witnessed w/ o seizure activity RPR nonreactive CMP on admission with mild hyponatremia (134), transaminase elevations, calcium of 8.1 Hep panel - Hep C reactive Thiamine level high at 325 Ammonia- normal/high (2) Respiratory disease ICD Codes: J98.9 - Respiratory disorder, unspecified Status: Acute Plan: Patient extubated on 03/18/17. -Continue breathing treatments, O2 per CC/respiratory therapy and attempt to extubate angie -Mucomyst Impression: Progressive worsening of respiratory status 03/09 requiring move to ICU and intubation/sedation and bronchial lavage to remove mucous plugs from both left and right mainstem bronchi. CXR 03/10 with persistent L basilar consolidation/effusion. Improving aeration in right base. Stable position of life support tubes CXR 03/16 stable CXR 03/18 white out of left lung field - patient underwent bronchoscopy with removal of mucous plug; patient has thick secretions, thought to be because of his COPD Bronchial washing cultures: Fungal culture with yeast AFB negative; culture pending Bronchial bacterial culture with light growth of normal ariela (3) SAQIB (acute kidney injury) ICD Codes: N17.9 - Acute kidney failure, unspecified Status: Acute Plan: -Nephrology consulted: Diagnosed with Acute renal failure acute tubular necrosis with drug use, Non oliguric, creatinine is slightly worse. -Stopped IVF to NS at 100ml/hr -Monitor BMP -CT abdomen/pelvis- No hydronephrosis. Subtle high density stranding medial/ upper right kidney. Abnormal mass arising from/abutting spleen LUQ measuring up to 7.5 cm with small amount of calcification. Discussed with radiologist. Likely from previous trauma. No further workup indicated. Impression: Patient with SAQIB. Creatinine trended: 0.86 on admission Suspect intrinsic cause as Cr elevation refractory to fluid supplementation, BUN /Cr ratio <20/1, and catheterized Previously on Vancomycin-> discontinued Renal US 02/27 with mild L hydronephrosis; normal kidneys No urine eosinophils Urine random Cr 41.6 Urine random sodium 97 TB testing negative FIDEL negative Cr stable at 2.6-2.95 (4) PNA (pneumonia) ICD Codes: J18.9 - Pneumonia, unspecified organism Status: Resolved Plan: -Continue Duonebs q4h -Continue O2 as needed Impression: Patient with symptoms of cough and intermittent hypoxia to low 90's requiring O2 supplementation; worsening of respiratory disease 03/09 with subsequent intubation and bronchoscopy w/ washing. CXR 03/02 with increasing consolidative changes in the left base. CXR 03/10 with persistent L basilar consolidation/effusion. Improving aeration in right base. Stable position of life support tubes CXR 03/16 stable Initial blood cultures + for staph hominis; subsequently negative 02/26, 03/02 Sputum cultures not obtained Urine Legionella, strep pneumo negative Abx: s/p Azithromycin and Flagyl 03/09-03/15; Cefepime 03/09-03/17 -s/p Solumedrol 40mg IV BID (5) Hypertension ICD Codes: I10 - Essential (primary) hypertension Status: Resolved Plan: Impression: BPs labile -Continue Amlodipine 10mg PO daily -Will hold Hydralazine 25 mg q12h since hypotensive -Metoprolol 100 mg q12h -Clonidine 0.1mg TID -Clonidine 0.1 mg q6h PRN For SBP >/= 180, DBP >/= 100 (6) FEN Status: Acute Plan: Fluids: Stopped NS IV at 100ml/hr Electrolytes: Monitor and replace per protocol Nutrition: Tube feeds GI PPx: Lansoprazole 30 mg NG/day VTE prophylaxis: Heparin 5000 units every 12 hours (Anderson Matt MD R2) Problem Qualifiers (1) Altered mental status: Qualified Codes: R41.0 - Disorientation, unspecified (2) PNA (pneumonia): Qualified Codes: J18.9 - Pneumonia, unspecified organism (3) Hypertension: Qualified Codes: I10 - Essential (primary) hypertension Anderson Matt MD R2 Mar 19, 2017 09:38 Aris Martinez MD Mar 19, 2017 14:47
[2017-03-19] MEDS: HEPARIN SODIUM - SQ 10,000 UNITS/ML VIAL SQ SCH ×2 (11:00→22:45)
--- NOTE | 2017-03-19 13:31 | HHI.NPPN ---
Subjective History of Present Illness 57-year-old male with the alcohol withdrawal, altered mental status, acute renal failure Additional Remarks Patient extubated and awake, following some commands. Objective Data Data Vital Signs Date Time Temp Pulse Resp B/P (MAP) Pulse Ox O2 Delivery O2 Flow Rate FiO2 03/19/17 08:11 96 Nasal Cannula 2.00 03/19/17 06:00 82 03/19/17 04:00 80 03/19/17 04:00 97.8 80 13 140/94 (109) 100 03/19/17 03:56 100 Venturi Mask 6.00 50 03/19/17 02:00 82 03/19/17 00:00 86 03/19/17 00:00 96.7 86 14 120/78 (92) 100 03/18/17 23:35 100 35 03/18/17 22:29 18 03/18/17 22:00 102 03/18/17 20:48 100 40 03/18/17 20:00 99 03/18/17 20:00 96 Bi-Pap 40 03/18/17 20:00 98.0 99 26 140/95 (110) 96 03/18/17 18:14 95 45 03/18/17 18:00 87 Venturi Mask 50 03/18/17 18:00 89 03/18/17 16:00 87 03/18/17 16:00 99.0 87 20 132/94 (107) 99 03/18/17 15:50 Nasal Cannula 4.00 03/18/17 15:40 98 Nasal Cannula 5 03/18/17 15:40 98 Nasal Cannula 5.00 03/18/17 15:35 99 Nasal Cannula 5.00 03/18/17 14:53 35 03/18/17 14:00 84 -: 03/19/17 0648 03/18/17 0411 Physical Exam General Appearance: Malnourished Eyes Eye Exam: Pupils Equal Throat Throat Exam: Oral Mucosa Seguin & Moist Neck Neck Exam: Neck Supple Pulmonary Resp Exam: Crackles, Rhonchi, Decreased Bases, Diminished Breath Sounds Cardiology CV Exam: Regular, Normal Sinus Rhythm Gastrointestinal/Abdomen GI Exam: Soft, Non-Tender, Bowel Sounds Present Musculoskeletal MS Remarks left shoulder sub laxation ? dislocated Extremeties Extremities Exam: Trace Edema Neurologic Neuro Exam: Obtunded Assessment/Plan Problem List: (1) SAQIB (acute kidney injury) ICD Codes: N17.9 - Acute kidney failure, unspecified Status: Acute Plan: Acute renal failure acute tubular necrosis with drug use Non oliguric, creatinine is stable at 2.9 Hepatitis C positive Ammonia not high s/p bronchoscopy with removal of mucous plug self extubated CT scan abdominal reviewed Subtle high density stranding medial/upper right kidney. Abnormal mass arising from/abutting spleen LUQ measuring up to 7.5 cm with small amount of calcification. FIDEL is positive 1:80, low titre. Creatinine is stable at 2.9, Urine out put is better. Follow urine out put and BMP. send Anti DNA as FIDEL was positive. check ANCA C3 C4 (2) Alcohol withdrawal ICD Codes: F10.239 - Alcohol dependence with withdrawal, unspecified Status: Chronic Plan: Patient remained in altered mental status (3) Hypertension ICD Codes: I10 - Essential (primary) hypertension Status: Resolved Plan: Patient's blood pressure was labile continue to monitor Problem Qualifiers (1) Alcohol withdrawal: Qualified Codes: F10.231 - Alcohol dependence with withdrawal delirium (2) Hypertension: Qualified Codes: I10 - Essential (primary) hypertension Daryl Martinez MD Mar 19, 2017 13:31
[2017-03-19 16:34] LABS: ALKALINE PHOSPHATASE 97 U/L (45-117); ALT (GPT) 44 U/L (12-78); ANION GAP 9 MEQ/L (5-15); AST (GOT) 81 U/L (15-37); BICARBONATE 23.8 MEQ/L (21.0-32.0); BLOOD UREA NITROGEN 57 MG/DL (7-18); CHLORIDE 107 MEQ/L (98-107); GLOMERULAR FILTRATION RATE 23 ML/MIN (>89); POTASSIUM 4.7 MEQ/L (3.5-5.1); SODIUM (NA) 140 MEQ/L (136-145); TOTAL BILIRUBIN ADULT 0.5 MG/DL (0.2-1.0)
[2017-03-20] VITALS (18 sets, daily range): BP systolic 139–168; BP diastolic 86–105; PULSE 73–106; RESP 16–27; TEMP 97.4–98.5; O2SAT 91–100
[2017-03-20] MEDS: RESP: ACETYLCYSTEINE 20% 30 ML NEB NEB SCH ×6 (03:48→23:15)
[2017-03-20] MEDS: RESP: ALBUTEROL 2.5 MG/IPRATROPIUM 0.5 MG NEB (SCH) NEB ×6 (03:48→23:15)
[2017-03-20] MEDS: RESP: ALBUTEROL 2.5 MG/3 ML NEB (PRN) NEB ×2 (05:00→07:00)
[2017-03-20 05:11] LABS: AUTOMATED NEUTROPHIL # 6.6 TH/MM3 (1.8-7.7); BASOPHIL % 0.1 % (0.0-2.0); HEMATOCRIT 32.6 % (39.0-51.0); HEMO FLAGS DIFF FINAL; LYMPH % 10.6 % (9.0-44.0); LYMPHOCYTE # 0.8 TH/MM3 (1.0-4.8); MEAN CELL VOLUME 101.5 FL (80.0-100.0); MEAN CORPUSCULAR HEMOGLOBIN 34.5 PG (27.0-34.0); MONO % 4.9 % (0.0-8.0); NEUT % 84.4 % (16.0-70.0); PLATELET COUNT 131 TH/MM3 (150-450); RED BLOOD COUNT 3.21 MIL/MM3 (4.50-5.90); RED CELL DISTRIBUTION WIDTH 13.8 % (11.6-17.2); WHITE BLOOD COUNT 7.8 TH/MM3 (4.0-11.0)
[2017-03-20 05:30] LABS: ANION GAP 10 MEQ/L (5-15); AST (GOT) 96 U/L (15-37); BICARBONATE 27.2 MEQ/L (21.0-32.0); BLOOD UREA NITROGEN 62 MG/DL (7-18); CHLORIDE 105 MEQ/L (98-107); GLOMERULAR FILTRATION RATE 23 ML/MIN (>89); MAGNESIUM 2.4 MG/DL (1.5-2.5); POTASSIUM 4.4 MEQ/L (3.5-5.1); SODIUM (NA) 142 MEQ/L (136-145)
[2017-03-20 05:31] LABS: ALT (GPT) 59 U/L (12-78)
[2017-03-20 05:33] LABS: ALKALINE PHOSPHATASE 112 U/L (45-117); TOTAL BILIRUBIN ADULT 0.5 MG/DL (0.2-1.0)
[2017-03-20] MEDS ORDERED: ETOMIDATE 20 MG/10 ML VIAL IV PUSH ONE ×2 (05:45→11:00)
[2017-03-20] MEDS ORDERED: RESP: ACETYLCYSTEINE 20% 30 ML NEB NEB ONE (05:45)
[2017-03-20] MEDS ORDERED: LIDOCAINE HCL 5% OINT 37 GM TUBE TOPICAL ONE (05:45)
[2017-03-20] MEDS ORDERED: LIDOCAINE HCL 1% 20 ML VIAL INFIL ONE (05:45)
[2017-03-20] MEDS ORDERED: ROCURONIUM INJ 50 MG/5 ML VIAL IV ONE ×2 (05:45→11:30)
[2017-03-20] MEDS ORDERED: MIDAZOLAM HCL 5 MG/ML VIAL (1 ML) IV PUSH ONE ×2 (05:45→11:00)
[2017-03-20] MEDS ORDERED: LIDOCAINE HCL 1% 50 ML VIAL ONE (05:53)
--- NOTE | 2017-03-20 06:35 | RADRPT ---
EXAM DATE/TIME: 03/20/2017 05:46 [facility] COMPARISON: CHEST SINGLE AP, March 18, 2017, 12:50. INDICATIONS : Respiratory disease. MEDICAL HISTORY : Hepatitis C. Myocardial infarction. Seizures, arthritis, depression SURGICAL HISTORY : None. ENCOUNTER: Subsequent ACUITY: 3 weeks PAIN SCORE: Non-responsive. LOCATION: Bilateral chest FINDINGS: A single view of the chest demonstrates a basilar airspace disease and pleural effusions, left greate r than right. Findings have worsened since March 18 comparison. This has been extubated and NG tu be has been removed. CONCLUSION: 1. Interval extubation with increasing basilar airspace disease and left pleural effusion. Ruy Hussein MD on March 20, 2017 at 6:33 Board Certified Radiologist. This report was verified electronically.
[2017-03-20] MEDS: ARTIFICIAL TEARS OPTH SOLN 15 ML BTL EACH EYE SCH ×3 (07:30→22:42)
[2017-03-20] MEDS: CHLORHEXIDINE 0.12% (ORAL KIT) 15 ML CUP MT SCH ×3 (07:30→20:00)
[2017-03-20] MEDS ORDERED: BUMETANIDE INJ 1 MG/4 ML VIAL IV PUSH ONE (07:30)
[2017-03-20] MEDS: ALBUMIN HUMAN 25% 25 GM/100 ML BAGP IV SCH ×2 (07:42→20:16)
--- NOTE | 2017-03-20 07:44 | HHI.CCPN ---
Subjective Remarks/Hospital Course This is a 57-year-old male that was found down and admitted to this hospital 02/23/2017. Urine tox screen revealed patient was positive for benzodiazepines and cocaine at that time. Since admission the patient has been on a [facility] protocol, neurology has been consulted Dr. Wayne, with continued supportive care. Over the last 48 hours the patient was noted to have elevation in his creatinine with a significant decrease in urine output acute renal failure nephrology was consulted the patient continues on gentle diuresis and received 80 mg of Lasix IV this afternoon and is currently on sodium bicarbonate infusion at 110 cc/an hour. Due to the patient's respiratory insufficiency, and altered mental status concern for possible continued respiratory decompensation the patient was transferred to the ICU, and critical care was consulted for management. Upon entering the patient's room the patient was noted to be lethargic having received 4 mg of Ativan in the last 4 hours, but opens eyes to sternal rub. The patient was noted to have O2 saturation of 95% on O2 via nasal cannula at 5 L with no accessory respiratory efforts. Stat ABG was ordered pending, to rule out CO2 narcosis. Since admission to ICU the patient was noted to diuresis of 700 cc. 03/03: Afebrile. The patient did not receive any Ativan since 3 PM on 03/02/17. The patient rested well overnight, eventually waking and responding. This a.m. the patient's noted to be sitting up in bed, alert and responsive. Librium has been added to medication regimen for alcohol withdrawal. Noted to be oriented to date of unable to provide name or place at this time. Essential tremors, fine tremors noted. The patient severely weak and unable to feed self without assistance. The patient's diet was advanced to regular diet, tolerating well, 100% consumption. PO meds were held since admission to ICU secondary to lethargy, all by mouth meds resumed this a.m.. The patient currently is compliant following commands, inappropriate responses, with noted incomprehensible words, language at times. Patient is noted to be very weak. Nasal cannula O2 has been weaned down to approximately 3 L, the patient appears in no respiratory distress. Subjective: 03/09: Reconsulted secondary acute respiratory failure. Chest x-ray earlier in the morning revealed collapse versus large pleural effusion left side. Patient oxygen requirements had increased from 4 L to a nonrebreather mask. CT thorax revealed likely mucous plugging/collapsed lung left side. Small to moderate left pleural effusion. Patient was combative upon arrival ICU in place in soft restraints. Due to mental status/mucous plugging patient was electively intubated using 20 mg etomidate and 50 mg, rocuronium. Patient was bronched which revealed thick white mucous plugging in the left and right mainstem. These were lavaged to left upper lobe/lingula and left lower lobe, right upper middle and lower lobes. Samples were sent see orders. Currently sedated with propofol and fentanyl drips. 03/10: Tonic seizures today when propofol stopped. Seizures ceased with propofol bolus. Left pneumonia persists but improved aeration after bronch . 03/11: Gas exchange acceptable. Continues to have tonic "seizures" when propofol is lightened. EEG 03/10 states no seizures but we will repeat EEG again today with stimulation and off propofol. Can't extubate until this "seizure" activity is resolved. Vomited tube feeds, will reduce and add reglan. 03/12: Off sedation tolerating CPAP even though intermittently apneic. Appears to follows commands but weekly on the upper extremity. No obvious seizures. EEG negative for seizure 03/11/17. Creatinine slightly improved to 2.8 from 3 03/13: Failed extubation on 03/12. Currently sedated, orally intubated on mechanical ventilation. Has thick copious respiratory secretions per [employer]. 03/14: Remains sedated, orally intubated on mechanical ventilation. Feeling C Pap trials. Not following commands on lightening sedation. 03/15: Remains intubated encephalopathy. Left lower lobe infiltrate again indicating probable mucous plugging/collapse. Palliative care meeting with family today. I recommend tracheostomy and PEG tube placement. D/W palliative care team 03/16: Off sedation since yesterday 5PM. Eyes open spontaneously. Following commands bilateral upper extremity, he squeezes with both hands. Discussed with Dr. Kingston. Will continue weaning attempt with plan for wean to extubate. s/p bronchoscopy yesterday, with re expansion of L lung. Has moderate secretions. I have updated Lore Darling (sister) about improvement in neuro exam. See below 03/17: Tolerated CPAP 7 hours yesterday. Currently on CPAP. Lethargic/somnolent but follows commands, gives thumbs up on bilateral UE. Creat stable. UO 750 ml in 24 hours. BAL negative to date 03/18: Remains intubated off sedation. There is further improvement in neuro exam, able to move both feet to command, gives thumbs up on both upper extremities. Chest x-ray shows complete white out of the left lung field. We' ll plan for emergency bronchoscopy 03/19: Extubated yesterday, overnight appeared to be having mucus plugging involving L lung. But currently patient is saturating well. He somnolent but wakes up easily and nodding appropriately and following commands, in the bilateral upper extremity 03/20: Today around 5.30 AM, patient acutely became hypoxemic with diminished breath sounds on the left lung field. Placed on nonrebreather clinical exam was consistent with left lower lobe mucus plugging according to Dr. Chadwick. With aggressive suctioning and Mucomyst and DuoNeb breathing treatments, patient 's air entry and saturation improved slightly. Currently on 100% nonrebreather oxygen saturation 90-92% tachypneic but not in severe distress. I discussed tracheostomy with the patient, witnessed by WHITNEY Marcial and Dixie. I explained to him that If he gets reintubated he will need tracheostomy due to frequent mucus plugging, with left lung collapse. Patient understands tracheostomy procedure, and wants tracheostomy done in case of reintubation. Objective Vital Signs Date Time Temp Pulse Resp B/P (MAP) Pulse Ox O2 Delivery O2 Flow Rate FiO2 03/20/17 06:00 106 03/20/17 05:30 96 Nasal Cannula 6.00 03/20/17 04:00 98.5 23 147/98 (114) 03/19/17 03:56 50 Intake and Output 03/20/17 03/20/17 03/21/17 08:00 16:00 00:00 Output Total 600 ml Balance -600 ml Result Diagram: 03/20/17 0413 03/20/17 0413 Imaging Last Impressions Shoulder X-Ray 03/05/17 0000 Signed Impressions: Service Date/Time: Sunday, March 05, 2017 20:57 - CONCLUSION: No acute disease. Rick Sanford MD Abdomen/Pelvis CT 03/04/17 0000 Signed Impressions: Service Date/Time: Saturday, March 04, 2017 10:31 - CONCLUSION: 1. There is no hydronephrosis or renal abnormality to explain the renal failure. However, there is subtle high density stranding along the medial and upper pole of the right kidney. Suggest followup CT to assess for change. 2. Abnormal mass arising from or abutting the spleen in the left upper quadrant measuring up to 7.5 cm. It contains a small amount of calcification. Suggest correlating with any prior imaging study that could offer additional characterization. If none are available suggest followup imaging to confirm stability and consider contrast enhanced CT or MRI for further characterization when patient condition permits. 3. Small bilateral pleural effusions, left larger than right, with associated compressive atelectasis. 4. Severe coronary artery calcification. Kilo Coulter MD Chest X-Ray 03/02/17 0000 Signed Impressions: Service Date/Time: Thursday, March 02, 2017 08:18 - CONCLUSION: Increasing consolidative changes left base. Nasir Mack MD FACR Renal Ultrasound 02/27/17 0000 Signed Impressions: Service Date/Time: Monday, February 27, 2017 20:36 - CONCLUSION: 1. Mildly dilated left renal collecting system. Kidneys normal in size. Trace free fluid. Ruy Hussein MD Brain MRI 02/25/17 0000 Signed Impressions: Service Date/Time: Saturday, February 25, 2017 12:37 - CONCLUSION: Atrophy, periventricular changes without evidence for acute infarction. Nasir Mack MD FACR Head CT 02/23/17 0000 Signed Impressions: Service Date/Time: Thursday, February 23, 2017 07:38 - CONCLUSION: No significant change has occurred. Maximus Pavon MD Objective Remarks GENERAL: 57-year-old male, awake alert in moderate respiratory distress hypoxic on 100% nonrebreather SKIN: Warm and dry. Clean gauze dressing right forearm HEAD: Atraumatic. Normocephalic. EYES: Pupils equal and round around 2 mm bilaterally and reactive. No scleral icterus. No injection or drainage. ENT: No nasal bleeding or discharge. Oral cavity is moist NECK: Trachea midline. CARDIOVASCULAR: RRR, tachycardic. S1, S2 no S4. Without murmur. No JVD. RESPIRATORY: Diminished breath sounds left lung thomas. Few coarse rhonchi. Bilateral course crackles GASTROINTESTINAL: Abdomen soft, non-tender, nondistended. Active bowel sounds appreciated MUSCULOSKELETAL: Extremities without without significant peripheral edema. No obvious deformities. Right forearm dressing NEUROLOGICAL: Awake alert oriented to person place and time, nodding appropriately to questions, and conversant. Follows commands bilateral upper and lower extremities. Moves all extremities spontaneously. Date of Insertion: Feb 23, 2017 A/P Assessment and Plan Neuro/Psych: Encephalopathy/Delirium most likely metabolic Admission with EtOH withdrawal - likely completed Polysubstance abuse including cocaine and benzodiazepines Polyneuropathy of critical illness Improved neuro exam. Follows commands, oriented to person place and time Patient is followed by Dr. Rogel neurology. EEG's reveal moderate encephalopathy no epileptiform activity. MRI negative for acute findings Previously on Seroquel 25 mg at night DCd and Haldol when necessary- discontinued 03/15/17 Librium DCd 03/15/17 Seizure precautions ?Seizures 03/10-EEG negative for seizures. Continue thiamine 100 mg daily Discontinue morphine when necessary 03/20/17 Respiratory: Acute hypoxemic respiratory failure secondary to aspiration Recurrent left lower lobe collapse/mucus plugging Complete opacification of left lung field due to mucus plugging 03/18/70 Status post extubation after therapeutic bronchoscopy 03/18/17 Episode of mucus plugging today 03/20/17 on NRB but oxygenation slowly improving , check repeat chest x-ray afternoon Plan for bedside ultrasound, evaluate for left pleural effusion Discussed with patient about reintubation and tracheostomy today 03/20/17 Patient wants to continue full code wants reintubation if he needs it and also consented for tracheostomy if he gets reintubated. Witnessed by RNs Aniket and Dixie Use BiPAP PRN. Albuterol/ipratropium aerosols every 4 hours with albuterol aerosols every 2 hours. PRN IV Solumedrol 60 q12 03/17/17. Start Symbicort and Spiriva CT thorax from 03/09 revealed collapse left upper/lingula lobes with significant secretions left main bronchus. s/p bronch Improved aeration 03/10 Cardiovascular: Hypertension Fluid overload Amlodipine 10 mg daily, clonidine 0.1 mg 3 times a day and metoprolol 5 mg by mouth twice a day for hypertension, with holding parameters Use when necessary labetalol and hydralazine when patient is nothing by mouth Maintain MAP > 65 mmHG Bumex as below Renal: Acute kidney injury secondary to ATN Nephrology following Dr. Martinez. Creat 2.8 03/20. UO 1.5L in 24 hours Accurate I's and O's, Monitor urine output. Continue Hall catheter due to worsening renal failure Start scheduled Bumex 2 mg now and 1 mg every 12 starting 03/20/17 No signs of hydronephrosis on renal imaging,Urine eosinophils negative FEN/GI: Mild protein calorie malnutrition Hyperkalemia-resolved Hep C NPO except meds due to respiratory status deterioration Lansoprazole for GI prophylaxis Docusate sodium senna 1 tablet twice a day for bowel regimen. Having daily BM Heme/ID: Macro Anemia Thrombocytopenia Pneumonia F/U BAL 03/15-neg to date On previous cultures in BAL have been negative except 02/23 coag negative staph which is contamination Cefepime discontinued 03/19/17, DCd Flagyl and azithromycin 03/09/17-03/15/17 Endocrine: Sliding-scale insulin to maintain euglycemia/low regimen with NovoLog every 6 hours Prophylaxis: GI Prophylaxis Lansoprazole DVT Prophylaxis SCDs/heparin subcutaneous Lines: Peripheral IVs providing adequate access at this time. Palliative care team following to assist with deciding goals of therapy. CCT 45 MIN Overall impression: Critically ill with acute respiratory deterioration from recurrent mucus plugging and hypoxemic respiratory failure. If patient gets reintubated he will need a tracheostomy due to recurrent mucus plugging, patient has given verbal consent and consent is in the chart. I will attempt to update family, but I was unable to reach Lore Darling by phone yesterday 03/19/17 03/15/17: I discussed and updated Lore Darling (sister) over the phone: . I explained to her improvement in neurological status. She is agreeable to continued care since there is improvement, and she does not want any other invasive procedures at this time and if there is any further clinical deterioration she wants to pursue comfort measures Grace Boateng MD Mar 20, 2017 07:44
[2017-03-20] MEDS: hydrALAZINE HCL 20 MG/ML VIAL IV PUSH PRN ×2 (07:47→16:11)
[2017-03-20] MEDS: BENEPROTEIN POWDER 1 PACK G-TUBE SCH ×3 (09:00→18:00)
[2017-03-20] MEDS: MULTIVITAMIN TAB PO SCH (09:00)
[2017-03-20] MEDS: SODIUM CHLORIDE 0.9% FLUSH 10 ML FLUSH IV FLUSH SCH ×2 (09:00→21:00)
[2017-03-20] MEDS: METOPROLOL TARTRATE 25 MG TAB PO SCH ×2 (09:00→20:16)
[2017-03-20] MEDS: BUDESONIDE-FORMOTEROL 160/4.5 MCG INHALER INH SCH ×3 (09:00→21:00)
[2017-03-20] MEDS: LANSOPRAZOLE SOLUTAB 30 MG TAB NG SCH (09:00)
[2017-03-20] MEDS: THIAMINE HCL 100 MG TAB PO SCH (09:00)
[2017-03-20] MEDS: TIOTROPIUM BROMIDE 18 MCG INH INH SCH ×2 (09:00→11:00)
[2017-03-20 09:11] LABS: BLOOD GAS BASE EXCESS 1.2 mmol/L (-2-2); BLOOD GAS CARBOXYHEMOGLOBIN 1.3 % (0-4); BLOOD GAS HCO3 25 mmol/L (22-26); BLOOD GAS METHEMOGLOBIN 0.8 % (0-2); BLOOD GAS O2 HGB SATURATION 93 % (90-100); BLOOD GAS OXYGEN CONTENT 14.6 Vol % (12.0-20.0); BLOOD GAS PCO2 39 mmHg (38-42); BLOOD GAS PO2 75 mmHg (61-120); BLOOD GAS TOTAL HGB 11.1 G/DL (12.0-16.0); CRITICAL VALUE NO; TEMP CORR TO 98.6
[2017-03-20 09:12] LABS: DRAW SITE RT RADIAL; FIO2 100 %; LITER FLOW 15 L/M; NUMBER OF ARTERIAL PUNCTURES 1; STAT NO; ULNAR PULSE PRESENT
[2017-03-20] MEDS: methylPREDNISolone SOD SUCC 125 MG/2 ML VIAL IV PUSH SCH ×2 (10:00→20:15)
[2017-03-20] MEDS: BUMETANIDE INJ 1 MG/4 ML VIAL IV PUSH SCH ×2 (10:00→19:00)
[2017-03-20] MEDS: fentaNYL CITRATE 250 MCG/5 ML AMP IV PUSH ONE ×2 (10:50→12:03)
--- NOTE | 2017-03-20 10:50 | HHI.HCPN ---
Reason for visit a. To assist with evaluation and management of symptoms including: Shortness of breath, debility b. To assist medical decision maker(s) with: better understanding of current medical conditions; weighing benefits/burdens of medical treatment options; making medical treatment decisions. Subjective/Interval History Mr. Cuevas is a 57 years old male with a medical history significant for EtOH use and abuse, tobacco use and abuse and depression. Patient was brought to [facility] ED on 02/23/17 via [place] the 40s. Patient was admitted for management of altered mental status associated with withdrawal delirium tremens and cellulitis to right upper extremity. Clinical course complicated by acute kidney failure, persistent altered mental status and respiratory failure requiring intubation and mechanical ventilation. Palliative care consulted for further clarifications of goals of care. Interval history: He was intubated 03/09 and 03/12. He was extubated 03/18 and is now requiring partial nonrebreather support at 12 L of oxygen. He is lethargic and unable to speak at this time. Per the ER and he was speaking earlier today but now appears fatigued. ABG drawn to evaluate for CO2 narcosis showing pH 7.42, CO2 39, PO2 75, HCO3 25, base excess 1.2. WBC 7.8, hemoglobin 11.1, hematocrit 32.6 , platelets 131, sodium 142, potassium 4.4, BUN 62, creatinine 2.82, GFR 23, AST 96, ALT 59, albumin 3.0. Chest x-ray today shows basilar airspace disease and pleural effusions, left greater than right worsening since 03/14 for comparison. He is able to nod and appears to understand. Both yesterday and today he was queried by physician and RN regarding his goals of care and he reiterated consistently on all conversations that he would wish to be reintubated, would accept tracheostomy and cardiac resuscitation. At this visit he reconfirmed by nodding that he would wish his sister to be his healthcare decision maker in case of his incapacitation, however is too weak to sign HCS and sister is already HCP. Conversation witnessed also by [facility]. HCS completed as witnessed. Addendum: Returned to home 30 minutes after initial assessment and patient had just been intubated for respiratory failure. . Advance Directives Living Will: Never completed Health Care Surrogate: Never completed Durable Power of Strategic Sourcing Manager: Never completed Advance Directive Specifics Health Care Surrogate(s): Unknown at this time if advance directives has been completed, no records in file. Palliative care has been able to communicate with patient`s siblings and his sister opted to serve as his health care proxy. Patient confirmed that he would wish for her to be his decision maker however at this time is too lethargic and weak to sign HCS. . Significant change in goals: Patient was previously a DNR as indicated by his sister who was serving as the healthcare proxy. Once extubated the patient was determined to be capacitated to make his own decisions and requested full CODE STATUS. . Objective Vital Signs Date Time Temp Pulse Resp B/P (MAP) Pulse Ox O2 Delivery O2 Flow Rate FiO2 03/20/17 09:56 94 Partial Rebreather 12.00 03/20/17 06:00 106 03/20/17 05:30 96 Nasal Cannula 6.00 03/20/17 04:00 98.5 91 23 147/98 (114) 93 03/20/17 04:00 91 03/20/17 02:00 90 03/20/17 00:00 93 03/20/17 00:00 97.8 93 21 139/92 (108) 91 03/19/17 22:00 76 03/19/17 20:00 95 Nasal Cannula 2.00 03/19/17 20:00 98.9 96 22 136/90 (105) 95 03/19/17 20:00 96 03/19/17 19:23 92 Nasal Cannula 2.00 03/19/17 18:00 98 03/19/17 16:00 98.0 84 20 116/85 (95) 89 03/19/17 16:00 84 03/19/17 14:00 83 03/19/17 12:00 98.5 88 16 139/88 (105) 94 03/19/17 12:00 88 Intake & Output 03/20/17 03/20/17 07:00 19:00 Output Total 600 ml Balance -600 ml Output Urine Total 600 ml # Bowel Movements 3 Physical Exam CONSTITUTIONAL/GENERAL: This is an ill looking male who looks older than stated age, on partial nonrebreather. TUBES/LINES/DRAINS: PIVs, Ahll catheter, SCDs. SKIN: Rash/ecchymosis to RUE. Scattered ecchymoses on upper extremities. Open areas/scabs to right upper extremity. Scattered scabs on face. Skin temperature appropriate. HEAD: Atraumatic. Normocephalic. EYES: Pupils equal and round and reactive. No scleral icterus. No injection or drainage. NECK: Trachea midline. Supple, nontender. CARDIOVASCULAR: Regular rhythm, controlled rate, S1, S2, S3 gallop, no murmur. RESPIRATORY/CHEST: Symmetric, unlabored respirations. Breath sounds clear, diminished. GASTROINTESTINAL: Abdomen soft, non-tender, nondistended. Bowel sounds present. GENITOURINARY: Without palpable bladder distension. Hall catheter in place with moderate amount of straw colored urine. MUSCULOSKELETAL: Extremities without clubbing, cyanosis. 1+ dependent edema. NEUROLOGICAL: Awake, lethargic, weak, nods appropriately, previously saying a few words. PSYCHIATRIC: Calm, fatigued . Diagnostic Tests Laboratory Laboratory Tests Test 03/18/17 04:11 03/19/17 06:48 03/19/17 15:38 03/20/17 04:13 Blood Urea Nitrogen 45 MG/DL (7-18) 57 MG/DL (7-18) 62 MG/DL (7-18) Creatinine 2.92 MG/DL (0.60-1.30) 2.89 MG/DL (0.60-1.30) 2.82 MG/DL (0.60-1.30) Random Glucose 126 MG/DL (74-106) 95 MG/DL (74-106) 101 MG/DL (74-106) Total Protein 6.9 GM/DL (6.4-8.2) 7.4 GM/DL (6.4-8.2) 7.7 GM/DL (6.4-8.2) Albumin 2.4 GM/DL (3.4-5.0) 2.6 GM/DL (3.4-5.0) 3.0 GM/DL (3.4-5.0) Calcium Level 8.8 MG/DL (8.5-10.1) 9.1 MG/DL (8.5-10.1) 9.0 MG/DL (8.5-10.1) Magnesium Level 2.4 MG/DL (1.5-2.5) 2.4 MG/DL (1.5-2.5) Alkaline Phosphatase 81 U/L (45-117) 97 U/L (45-117) 112 U/L (45-117) Aspartate Amino Transf (AST/SGOT) 60 U/L (15-37) 81 U/L (15-37) 96 U/L (15-37) Alanine Aminotransferase (ALT/SGPT) 34 U/L (12-78) 44 U/L (12-78) 59 U/L (12-78) Total Bilirubin 0.5 MG/DL (0.2-1.0) 0.5 MG/DL (0.2-1.0) 0.5 MG/DL (0.2-1.0) Sodium Level 144 MEQ/L (136-145) 140 MEQ/L (136-145) 142 MEQ/L (136-145) Potassium Level 4.3 MEQ/L (3.5-5.1) 4.7 MEQ/L (3.5-5.1) 4.4 MEQ/L (3.5-5.1) Chloride Level 109 MEQ/L (98-107) 107 MEQ/L (98-107) 105 MEQ/L (98-107) Carbon Dioxide Level 26.5 MEQ/L (21.0-32.0) 23.8 MEQ/L (21.0-32.0) 27.2 MEQ/L (21.0-32.0) Anion Gap 9 MEQ/L (5-15) 9 MEQ/L (5-15) 10 MEQ/L (5-15) Estimat Glomerular Filtration Rate 22 ML/MIN (>89) 23 ML/MIN (>89) 23 ML/MIN (>89) White Blood Count 6.9 TH/MM3 (4.0-11.0) 7.8 TH/MM3 (4.0-11.0) Red Blood Count 3.41 MIL/MM3 (4.50-5.90) 3.21 MIL/MM3 (4.50-5.90) Hemoglobin 11.4 GM/DL (13.0-17.0) 11.1 GM/DL (13.0-17.0) Hematocrit 34.8 % (39.0-51.0) 32.6 % (39.0-51.0) Mean Corpuscular Volume 102.1 FL (80.0-100.0) 101.5 FL (80.0-100.0) Mean Corpuscular Hemoglobin 33.6 PG (27.0-34.0) 34.5 PG (27.0-34.0) Mean Corpuscular Hemoglobin Concent 32.9 % (32.0-36.0) 34.0 % (32.0-36.0) Red Cell Distribution Width 14.0 % (11.6-17.2) 13.8 % (11.6-17.2) Platelet Count 104 TH/MM3 (150-450) 131 TH/MM3 (150-450) Mean Platelet Volume 10.0 FL (7.0-11.0) 10.5 FL (7.0-11.0) Neutrophils (%) (Auto) 82.0 % (16.0-70.0) 84.4 % (16.0-70.0) Lymphocytes (%) (Auto) 13.5 % (9.0-44.0) 10.6 % (9.0-44.0) Monocytes (%) (Auto) 4.3 % (0.0-8.0) 4.9 % (0.0-8.0) Eosinophils (%) (Auto) 0.0 % (0.0-4.0) 0.0 % (0.0-4.0) Basophils (%) (Auto) 0.2 % (0.0-2.0) 0.1 % (0.0-2.0) Neutrophils # (Auto) 5.7 TH/MM3 (1.8-7.7) 6.6 TH/MM3 (1.8-7.7) Lymphocytes # (Auto) 0.9 TH/MM3 (1.0-4.8) 0.8 TH/MM3 (1.0-4.8) Monocytes # (Auto) 0.3 TH/MM3 (0-0.9) 0.4 TH/MM3 (0-0.9) Eosinophils # (Auto) 0.0 TH/MM3 (0-0.4) 0.0 TH/MM3 (0-0.4) Basophils # (Auto) 0.0 TH/MM3 (0-0.2) 0.0 TH/MM3 (0-0.2) CBC Comment DIFF FINAL DIFF FINAL Differential Comment Hematology Comments Complement C3 87 MG/DL (90-180) Complement C4 15 MG/DL (10-40) Test 03/20/17 09:01 Blood Gas Puncture Site RT RADIAL Blood Gas Patient Temperature 98.6 Blood Gas HCO3 25 mmol/L (22-26) Blood Gas Base Excess 1.2 mmol/L (-2-2) Blood Gas Oxygen Saturation 93 % (90-100) Arterial Blood pH 7.42 (7.380-7.420) Arterial Blood Partial Pressure CO2 39 mmHg (38-42) Arterial Blood Partial Pressure O2 75 mmHg (61-120) Arterial Blood Oxygen Content 14.6 Vol % (12.0-20.0) Arterial Blood Carboxyhemoglobin 1.3 % (0-4) Arterial Blood Methemoglobin 0.8 % (0-2) Blood Gas Hemoglobin 11.1 G/DL (12.0-16.0) Oxygen Delivery Device Non-Rebreathing Mask Blood Gas Liter Flow 15 L/M Blood Gas Inspired Oxygen 100 % . Result Diagram: 03/20/17 0413 03/20/17 0413 Imaging Last Impressions Chest X-Ray 03/20/17 0600 Signed Impressions: Service Date/Time: Monday, March 20, 2017 05:46 - CONCLUSION: 1. Interval extubation with increasing basilar airspace disease and left pleural effusion. Ruy Hussein MD Abdomen X-Ray 03/13/17 0000 Signed Impressions: Service Date/Time: Monday, March 13, 2017 13:04 - CONCLUSION: 1. The tip of the NG tube is just through the GE junction and into the stomach. Cliff Mack MD Brain MRI 03/10/17 0000 Signed Impressions: Service Date/Time: Friday, March 10, 2017 15:01 - CONCLUSION: No acute infarct or other acute intracranial abnormality. Atrophy and chronic white matter changes are again noted. Kilo Rowell MD Chest CT 03/09/17 0000 Signed Impressions: Service Date/Time: Thursday, March 09, 2017 04:59 - CONCLUSION: 1. Marked volume loss in the left hemithorax with near-complete collapse of the left lower lobe/lingula. There is still some aeration in the left upper lung. Some of this is due to the moderate sized left-sided effusion although there may be element of airway obstruction/mucus plugging as well. 2. Small right-sided effusion with become atelectatic changes in the right base. 3. Patchy biapical airspace disease.. Tone Henry MD Shoulder X-Ray 03/05/17 0000 Signed Impressions: Service Date/Time: Sunday, March 05, 2017 20:57 - CONCLUSION: No acute disease. Rick Sanford MD Abdomen/Pelvis CT 03/04/17 0000 Signed Impressions: Service Date/Time: Saturday, March 04, 2017 10:31 - CONCLUSION: 1. There is no hydronephrosis or renal abnormality to explain the renal failure. However, there is subtle high density stranding along the medial and upper pole of the right kidney. Suggest followup CT to assess for change. 2. Abnormal mass arising from or abutting the spleen in the left upper quadrant measuring up to 7.5 cm. It contains a small amount of calcification. Suggest correlating with any prior imaging study that could offer additional characterization. If none are available suggest followup imaging to confirm stability and consider contrast enhanced CT or MRI for further characterization when patient condition permits. 3. Small bilateral pleural effusions, left larger than right, with associated compressive atelectasis. 4. Severe coronary artery calcification. Kilo Coulter MD Renal Ultrasound 02/27/17 0000 Signed Impressions: Service Date/Time: Monday, February 27, 2017 20:36 - CONCLUSION: 1. Mildly dilated left renal collecting system. Kidneys normal in size. Trace free fluid. Ruy Hussein MD Head CT 02/23/17 0000 Signed Impressions: Service Date/Time: Thursday, February 23, 2017 07:38 - CONCLUSION: No significant change has occurred. Maximus Pavon MD Procedures * 03/15/17 -bronchoscopy * 03/12/17 -reintubated * 03/12/17 -medical extubated * 03/09/17 -endotracheal Intubation * 03/09/17 -Bronchoscopy . Assessment and Plan Disease Oriented Problem List: (1) Acute hypoxemic respiratory failure (2) Acute kidney injury (3) PNA (pneumonia) (4) Encephalopathy (5) Cellulitis (6) Protein-calorie malnutrition (7) Physical deconditioning Symptom Scale: (1) Shortness of breath 0-10 Scale: Unable to quantify Comment: Currently intubated on mechanical ventilation. Reintubated 03/12/17. (2) Anxiety 0-10 Scale: Unable to quantify (3) Debility 0-10 Scale: Unable to quantify Comment: Progressive given acute events and prolonged hospitalization. Pertinent Non-Medical Issues Psychosocial: Patient is homeless. Chronic alcohol abuse and polysubstance abuse. On an admission in April, patient stated that he grew up in [place], [place], highest level of education is high school. Patient has as per records. Patient's mother and father . Patient also reported that he had been incarcerated at least 50 times. Spiritual: Unknown. Legal: unknown if advance directives have been completed. Ethical issues impacting care: Important Contacts Lore Darling (sister): [phone] . Prognosis Mr. Cuevas is a 57 years old male with a medical history significant for EtOH use and abuse, tobacco use and abuse and depression. Patient was brought to [facility] ED on 02/23/17 via [place] sugar [place] the 40s. Patient was admitted for management of altered mental status associated with withdrawal delirium tremens and cellulitis to right upper extremity. Clinical course complicated by persistent encephalopathy, acute kidney injury and respiratory failure required intubation and mechanical ventilation. Patient's overall prognosis is poor given the above. . Code Status: No Code Plan PLAN: Legal decision maker: Patient currently capacitated to make his own decisions , however states that he would like his sister to continue as his decision- maker in case of his incapacitation. Goals: Aggressive. CODE STATUS: FULL CODE SYMPTOMS: * Dyspnea - saturating adequately on 100% partial rebreather, appears exhausted , has worsening pleural effusions left greater than right. Has received Bumex this morning and is diuresing well. Also receiving Symbicort, Spiriva, Mucomyst , DuoNeb, Solu-Medrol and albuterol. Would recommend aggressive pulmonary toilet to prevent re-intubation. Patient states that he would want reintubation in case of recurrent respiratory failure. * Debility - he is extremely weak and fatigued, to exhausted at this point to speak. Physical therapy and occupational therapy are following. Up to stretcher chair only at this time. Will need continuous and extensive therapy. Palliative care will continue to follow the patient during hospital course as condition evolves, to assist patient/decision-maker with understanding of their medical conditions, weighing benefits/burdens of treatment options, for clarification of goals of treatment. Additionally will assist with any symptoms of palliative concern Attestation To help prompt me to consider important information that might be impacting today's encounter and assessment, information from prior notes written by myself or my colleagues may have been "brought forward" into today's note. My signature on this note, however, is an attestation that I personally performed the exam, history, and/or decision-making noted today, and, unless otherwise indicated, the interactions with patient, family, and staff as well as the review of records all occurred today. I also attest that the listed assessment and stated plan reflect my best clinical judgment today based on the combination of historical information, prior notes, and today's exam/ interactions. When time spent is documented, it refers only to time spent today by the signer, or if indicated, combined time spent today by collaborating physician/nurse practitioner. Shannan Armas Mar 20, 2017 10:50 am
[2017-03-20] MEDS: HEPARIN SODIUM - SQ 10,000 UNITS/ML VIAL SQ SCH ×3 (11:00→23:32)
[2017-03-20] MEDS ORDERED: fentaNYL DRIP 250 ML IV PRN (11:00)
[2017-03-20] MEDS ORDERED: ROCURONIUM INJ 50 MG/5 ML VIAL IV PUSH ONE (11:00)
--- NOTE | 2017-03-20 11:19 | PD.PROCEDR ---
Procedure Note Procedure PROCEDURE: Orotracheal intubation INDICATION: Acute hypoxemic respiratory failure DETAILS OF PROCEDURE The patient was placed in optimal position and preoxygenated with 100% FiO2 via bag valve mask. At the start oxygen saturation was 88%. The patient was administered 5 mg IV Versed, 20 mg etomidate IV and 50 mg rocuronium IV. I entered the oropharynx with a size 4 Len laryngoscope blade and got a Grade 1 view. On single attempt a size 8 cuffed endotracheal tube was passed through the vocal cords. Correct tube location was confirmed with end tidal CO2 detector and by auscultating over bilateral lung thomas. The endotracheal tube was secured with adhesive tape at a depth of 24 cm at the lips. The patient was connected to the ventilator. The patient tolerated the procedure well without any apparent complications. Oxygen saturations were maintained greater than 88% all times. STAT chest x-ray pending at time dictation. Grace Boateng MD Mar 20, 2017 11:19
[2017-03-20] MEDS ORDERED: fentaNYL CITRATE 250 MCG/5 ML AMP IV PUSH ONE (11:30)
[2017-03-20] MEDS: PROPOFOL 1000 MG/100 ML INJ 100 ML IV PRN ×2 (11:57→21:47)
--- NOTE | 2017-03-20 12:18 | HHI.FPPN ---
Subjective Remarks Yesterday, patient was able to clarify his CODE STATUS to the security engineer by nodding or shaking his head. Thus, patient is now full code again. Today, around 5:30 AM, patient acutely became hypoxemic with diminished breath sounds on the left lung field. Placed on nonrebreather clinical exam was consistent with left lower lobe mucus plugging according to Dr. Chadwick. With aggressive suctioning and Mucomyst and DuoNeb breathing treatments, patient's air entry and saturation improved slightly. Body Finisher Dr. Boateng discussed with the patient that if he gets reintubated he will need tracheostomy due to frequent mucus plugging with left lung collapse. Patient seemed to understand tracheostomy procedure, and wants tracheostomy done in case of reintubation. Patient was subsequently re-intubated and tracheostomy is planned for today. (Anderson Matt MD R2) Objective Vitals Vital Signs Date Time Temp Pulse Resp B/P (MAP) Pulse Ox O2 Delivery O2 Flow Rate FiO2 03/20/17 10:59 95 50 03/20/17 09:56 94 Partial Rebreather 12.00 03/20/17 06:00 106 03/20/17 05:30 96 Nasal Cannula 6.00 03/20/17 04:00 98.5 91 23 147/98 (114) 93 03/20/17 04:00 91 03/20/17 02:00 90 03/20/17 00:00 93 03/20/17 00:00 97.8 93 21 139/92 (108) 91 03/19/17 22:00 76 03/19/17 20:00 95 Nasal Cannula 2.00 03/19/17 20:00 98.9 96 22 136/90 (105) 95 03/19/17 20:00 96 03/19/17 19:23 92 Nasal Cannula 2.00 03/19/17 18:00 98 03/19/17 16:00 98.0 84 20 116/85 (95) 89 03/19/17 16:00 84 03/19/17 14:00 83 I/O 03/19/17 03/19/17 03/19/17 03/20/17 03/20/17 03/20/17 07:00 15:00 23:00 07:00 15:00 23:00 Intake Total 240 ml Output Total 1000 ml 850 ml 600 ml Balance -1000 ml -610 ml -600 ml Intake Oral 240 ml Output Urine Total 1000 ml 850 ml 600 ml # Bowel Movements 1 0 3 (Anderson Matt MD R2) Result Diagram: 03/20/1741203/20/17412 Imaging Last Impressions Chest X-Ray 03/20/17 0600 Signed Impressions: Service Date/Time: Monday, March 20, 2017 05:46 - CONCLUSION: 1. Interval extubation with increasing basilar airspace disease and left pleural effusion. Ruy Hussein MD Abdomen X-Ray 03/13/17 0000 Signed Impressions: Service Date/Time: Monday, March 13, 2017 13:04 - CONCLUSION: 1. The tip of the NG tube is just through the GE junction and into the stomach. Cliff Mack MD Brain MRI 03/10/17 0000 Signed Impressions: Service Date/Time: Friday, March 10, 2017 15:01 - CONCLUSION: No acute infarct or other acute intracranial abnormality. Atrophy and chronic white matter changes are again noted. Kilo Rowell MD Chest CT 03/09/17 0000 Signed Impressions: Service Date/Time: Thursday, March 09, 2017 04:59 - CONCLUSION: 1. Marked volume loss in the left hemithorax with near-complete collapse of the left lower lobe/lingula. There is still some aeration in the left upper lung. Some of this is due to the moderate sized left-sided effusion although there may be element of airway obstruction/mucus plugging as well. 2. Small right-sided effusion with become atelectatic changes in the right base. 3. Patchy biapical airspace disease.. Tone Henry MD Shoulder X-Ray 03/05/17 0000 Signed Impressions: Service Date/Time: Sunday, March 05, 2017 20:57 - CONCLUSION: No acute disease. Rick Sanford MD Abdomen/Pelvis CT 03/04/17 0000 Signed Impressions: Service Date/Time: Saturday, March 04, 2017 10:31 - CONCLUSION: 1. There is no hydronephrosis or renal abnormality to explain the renal failure. However, there is subtle high density stranding along the medial and upper pole of the right kidney. Suggest followup CT to assess for change. 2. Abnormal mass arising from or abutting the spleen in the left upper quadrant measuring up to 7.5 cm. It contains a small amount of calcification. Suggest correlating with any prior imaging study that could offer additional characterization. If none are available suggest followup imaging to confirm stability and consider contrast enhanced CT or MRI for further characterization when patient condition permits. 3. Small bilateral pleural effusions, left larger than right, with associated compressive atelectasis. 4. Severe coronary artery calcification. Kilo Coulter MD Renal Ultrasound 02/27/17 0000 Signed Impressions: Service Date/Time: Monday, February 27, 2017 20:36 - CONCLUSION: 1. Mildly dilated left renal collecting system. Kidneys normal in size. Trace free fluid. Ruy Hussein MD Head CT 02/23/17 0000 Signed Impressions: Service Date/Time: Thursday, February 23, 2017 07:38 - CONCLUSION: No significant change has occurred. Maximus Pavon MD Objective Remarks GENERAL: male, lying in bed intubated and unresponsive, even to painful stimulus, eyes slightly open SKIN: Bilateral upper extremities with multiple well-healing scabs on right arm. HEENT: Intubated. Pupils grossly symmetrical and reactive. Sclera injected bilaterally. CARDIOVASCULAR: RRR without appreciable murmurs. grossly normal perfusion. No edema RESPIRATORY: normal rate; clear anterior breath sounds bilaterally, without wheezing GASTROINTESTINAL: Abdomen soft, non-tender, nondistended; + bowel sounds MUSCULOSKELETAL: no cyanosis. 2+ pitting edema of right arm from wrist to elbow. No calf tenderness. NEURO: Unresponsive, even to painful stimulus. (Anderson Matt MD R2) Date of Insertion: Feb 23, 2017 (Anderson Matt MD R2) A/P Assessment and Plan 57-year-old white male with past medical history of alcohol withdrawal presented to the ED with severe hypoglycemia and altered mental status; patient has had progressively worsening renal function and is currently being followed for renal failure and continued altered mental status. Pt recently required intubation and sedation for respiratory distress and imaging with opacification of the left lung concerning for left lung collapse in the context of mucus plugging, which was removed on 03/09 and again on 03/18 and again on 03/20. Patient has been asked mid and reintubated multiple times. Tracheostomy on 03/20. Discharge Planning Pending workup for declining renal function, AMS, weaning off vent Discussed plan of care with complex case manager and palliative care social worker masters. The palliative care social worker masters in contact with all of the patient's siblings; made DNR/DNI (Anderson Matt MD R2) Attending Attestation Patient examined and case discussed with resident physician I have read the above note and agree with the assessment/plan as discussed with me I was involved in all medical decision making for this patient Aris Martinez M.D. (Aris Martinez MD) Problem List: (1) Altered mental status ICD Codes: R41.82 - Altered mental status, unspecified Status: Acute Plan: Patient reintubated again this morning. Unresponsive today. Patient was effectively communicating his wishes to the security engineer when he was awake and alert. Thus, patient is full code and he consented to tracheostomy. -Body Finisher consulted and appreciated- intubated and satting well -Continue treatment of chronic alcoholism -Continue PO multivitamin -Occupational therapy recommended OT at rehabilitation (PT recommended OT) when he was at his best. He probably needs full rehab if he improves. -Continue tube feeds/IVF; Seizure precautions Impression: AMS initially suspected secondary to alcoholism or polysubstance abuse; persistent. could be anoxic brain injury from hypoglycemia (2) Respiratory disease ICD Codes: J98.9 - Respiratory disorder, unspecified Status: Acute Plan: Patient re-intubated on 03/20/17. -Plan for tracheostomy removal of mucous plug today. -Continue breathing treatments, O2 per CC/respiratory therapy -Mucomyst -Bronchial washing cultures negative. Impression: Encephalopathic with likely FARMHAND damage from polysubstance abuse and/ or anoxic brain injury from hypoglycemia. Thus, patient may be unable to protect airway. Patient with repeated mucous plugging and lung collapses on imaging. Thick secretions likely due to undiagnosed COPD. (3) SAQIB (acute kidney injury) ICD Codes: N17.9 - Acute kidney failure, unspecified Status: Acute Plan: -Nephrology consulted: Diagnosed with Acute renal failure acute tubular necrosis with drug use, Non oliguric, creatinine is stable. -Monitor BMP (4) Hypertension ICD Codes: I10 - Essential (primary) hypertension Status: Resolved Plan: Impression: BPs stable since 03/19 -Continue Amlodipine 10mg PO daily -Will hold Hydralazine 25 mg q12h since hypotension -Hydralazine 20 mg IV push every hour when necessary for blood pressure over 160 /90 -Labetalol 20 mg IV push every 4 hours when necessary for systolic blood pressure over 160 -Metoprolol 25 mg q12h -Clonidine 0.1 mg q6h PRN For SBP >/= 170, DBP >/= 100 (5) FEN Status: Acute Plan: Fluids: none Electrolytes: Monitor and replace per protocol Nutrition: Tube feeds GI PPx: Lansoprazole 30 mg NG/day VTE prophylaxis: Heparin 5000 units every 12 hours (Anderson Matt MD R2) Problem Qualifiers (1) Altered mental status: Qualified Codes: R41.0 - Disorientation, unspecified (2) Hypertension: Qualified Codes: I10 - Essential (primary) hypertension Anderson Matt MD R2 Mar 20, 2017 12:18 Aris Martinez MD Mar 20, 2017 16:45
[2017-03-20 12:21] LABS: BLOOD GAS BASE EXCESS 0.6 mmol/L (-2-2); BLOOD GAS CARBOXYHEMOGLOBIN 1.2 % (0-4); BLOOD GAS HCO3 25 mmol/L (22-26); BLOOD GAS METHEMOGLOBIN 0.7 % (0-2); BLOOD GAS O2 HGB SATURATION 96 % (90-100); BLOOD GAS PCO2 39 mmHg (38-42); BLOOD GAS PO2 108 mmHg (61-120); CRITICAL VALUE NO; OXYGEN DEVICE VENTILATOR; TEMP CORR TO 98.6
[2017-03-20 12:22] LABS: DRAW SITE LT RADIAL; FIO2 70 %; NUMBER OF ARTERIAL PUNCTURES 1; STAT NO; ULNAR PULSE PRESENT
--- NOTE | 2017-03-20 12:38 | RADRPT ---
EXAM DATE/TIME: 03/20/2017 11:37 [facility] COMPARISON: CHEST SINGLE AP, March 20, 2017, 5:46. INDICATIONS : Respiratory distress. Intubation. MEDICAL HISTORY : Myocardial infarction. Hypertension Arthritis. Seizures. Dyspnea. SURGICAL HISTORY : Multiple orthopaedic surgeries. ENCOUNTER: Subsequent ACUITY: 1 month PAIN SCORE: Non-responsive. LOCATION: chest FINDINGS: Endotracheal tube is present in satisfactory position with tip 5-6 cm above the jared. A nasogastric tube descends to the stomach. There is complete opacification of the left hemithorax consistent with interval collapse of the left lung to accompany pre-existing effusion and infiltrate. There is mild diffuse interstitial prominence in the contralateral right lung. CONCLUSION: Total opacification of the left hemithorax. Kilo Maravilla MD on March 20, 2017 at 12:32 Board Certified Radiologist. This report was verified electronically.
--- NOTE | 2017-03-20 12:49 | HHI.NPPN ---
Subjective History of Present Illness 57-year-old male with the alcohol withdrawal, altered mental status, acute renal failure Additional Remarks Patient extubated and awake, Objective Data Data Vital Signs Date Time Temp Pulse Resp B/P (MAP) Pulse Ox O2 Delivery O2 Flow Rate FiO2 03/20/17 10:59 95 50 03/20/17 09:56 94 Partial Rebreather 12.00 03/20/17 06:00 106 03/20/17 05:30 96 Nasal Cannula 6.00 03/20/17 04:00 98.5 91 23 147/98 (114) 93 03/20/17 04:00 91 03/20/17 02:00 90 03/20/17 00:00 93 03/20/17 00:00 97.8 93 21 139/92 (108) 91 03/19/17 22:00 76 03/19/17 20:00 95 Nasal Cannula 2.00 03/19/17 20:00 98.9 96 22 136/90 (105) 95 03/19/17 20:00 96 03/19/17 19:23 92 Nasal Cannula 2.00 03/19/17 18:00 98 03/19/17 16:00 98.0 84 20 116/85 (95) 89 03/19/17 16:00 84 03/19/17 14:00 83 -: 03/20/17 0413 03/20/17 0413 Physical Exam General Appearance: Malnourished Eyes Eye Exam: Pupils Equal Throat Throat Exam: Oral Mucosa [place] & Moist Neck Neck Exam: Neck Supple Pulmonary Resp Exam: Crackles, Rhonchi, Decreased Bases, Diminished Breath Sounds Cardiology CV Exam: Regular, Normal Sinus Rhythm Gastrointestinal/Abdomen GI Exam: Soft, Non-Tender, Bowel Sounds Present Musculoskeletal MS Remarks left shoulder sub laxation ? dislocated Extremeties Extremities Exam: Trace Edema Neurologic Neuro Exam: Obtunded Assessment/Plan Problem List: (1) SAQIB (acute kidney injury) ICD Codes: N17.9 - Acute kidney failure, unspecified Status: Acute Plan: Acute renal failure acute tubular necrosis with drug use Non oliguric, creatinine is stable at 2.8 Hepatitis C positive Ammonia not high s/p bronchoscopy with removal of mucous plug self extubated CT scan abdominal reviewed Subtle high density stranding medial/upper right kidney. Abnormal mass arising from/abutting spleen LUQ measuring up to 7.5 cm with small amount of calcification. FIDEL is positive 1:80, low titre. Creatinine is stable at 2.8, Urine out put is better. Follow urine out put and BMP. send Anti DNA as FIDEL was positive low titer check ANCA C3 87 slightly low C4 normal doubt auto immune process (2) Alcohol withdrawal ICD Codes: F10.239 - Alcohol dependence with withdrawal, unspecified Status: Chronic Plan: Patient remained in altered mental status (3) Hypertension ICD Codes: I10 - Essential (primary) hypertension Status: Resolved Plan: Patient's blood pressure was labile continue to monitor Problem Qualifiers (1) Alcohol withdrawal: Qualified Codes: F10.231 - Alcohol dependence with withdrawal delirium (2) Hypertension: Qualified Codes: I10 - Essential (primary) hypertension Daryl Martinez MD Mar 20, 2017 12:49
--- NOTE | 2017-03-20 12:58 | HHI.NPPN ---
Subjective History of Present Illness 57-year-old male with the alcohol withdrawal, altered mental status, acute renal failure Additional Remarks Patient re intubated again sedated Objective Data Data Vital Signs Date Time Temp Pulse Resp B/P (MAP) Pulse Ox O2 Delivery O2 Flow Rate FiO2 03/20/17 10:59 95 50 03/20/17 09:56 94 Partial Rebreather 12.00 03/20/17 06:00 106 03/20/17 05:30 96 Nasal Cannula 6.00 03/20/17 04:00 98.5 91 23 147/98 (114) 93 03/20/17 04:00 91 03/20/17 02:00 90 03/20/17 00:00 93 03/20/17 00:00 97.8 93 21 139/92 (108) 91 03/19/17 22:00 76 03/19/17 20:00 95 Nasal Cannula 2.00 03/19/17 20:00 98.9 96 22 136/90 (105) 95 03/19/17 20:00 96 03/19/17 19:23 92 Nasal Cannula 2.00 03/19/17 18:00 98 03/19/17 16:00 98.0 84 20 116/85 (95) 89 03/19/17 16:00 84 03/19/17 14:00 83 -: 03/20/17 0413 03/20/17 0413 Physical Exam General Appearance: Malnourished Eyes Eye Exam: Pupils Equal Throat Throat Exam: Oral Mucosa [place] & Moist Neck Neck Exam: Neck Supple Pulmonary Resp Exam: Crackles, Rhonchi, Decreased Bases, Diminished Breath Sounds Cardiology CV Exam: Regular, Normal Sinus Rhythm Gastrointestinal/Abdomen GI Exam: Soft, Non-Tender, Bowel Sounds Present Musculoskeletal MS Remarks left shoulder sub laxation ? dislocated Extremeties Extremities Exam: Trace Edema Neurologic Neuro Exam: Obtunded Assessment/Plan Problem List: (1) SAQIB (acute kidney injury) ICD Codes: N17.9 - Acute kidney failure, unspecified Status: Acute Plan: Acute renal failure acute tubular necrosis with drug use Non oliguric, creatinine is stable at 2.8 Hepatitis C positive Ammonia not high s/p bronchoscopy with removal of mucous plug self extubated, multiple re intubations, now going to have Trach CT scan abdominal reviewed Subtle high density stranding medial/upper right kidney. Abnormal mass arising from/abutting spleen LUQ measuring up to 7.5 cm with small amount of calcification. FIDEL is positive 1:80, low titre. Creatinine is stable at 2.8, Urine out put is better. Follow urine out put and BMP. send Anti DNA as FIDEL was positive low titer check ANCA C3 87 slightly low C4 normal doubt auto immune process (2) Alcohol withdrawal ICD Codes: F10.239 - Alcohol dependence with withdrawal, unspecified Status: Chronic Plan: Patient remained in altered mental status (3) Hypertension ICD Codes: I10 - Essential (primary) hypertension Status: Resolved Plan: Patient's blood pressure was labile continue to monitor Problem Qualifiers (1) Alcohol withdrawal: Qualified Codes: F10.231 - Alcohol dependence with withdrawal delirium (2) Hypertension: Qualified Codes: I10 - Essential (primary) hypertension Daryl Martinez MD Mar 20, 2017 12:58
--- NOTE | 2017-03-20 15:06 | PD.PROCEDR ---
Procedure Note Procedure DX: Respiratory Failure (J96.01) OP: Therapeutic Bronchoscopy (27004) Procedure: Time out. Usual ICU monitoring in place, intubated and mechanically ventilated. Through elbow sidepiece the scope was insertion and the tracheobronchial tree inspected. All segments clear aside from the lingula and left basilar segments which were inspissated with thick white secretions. Repeated suction and saline irrigation cleared these segments. The scope and ET tube were then withdrawn to the level of the cricoid to provide guidance for the percutaneous tracheostomy dictated separately. After trach insertion the scope was passed down the new trach tube to confirm correct position of the new tube above the jared. Residual secretions were suction clear. Edward Hernandez MD Mar 20, 2017 15:06
--- NOTE | 2017-03-20 15:21 | PD.PROCEDR ---
Procedure Note Procedure Percutaneous Dilation Tracheostomy Tube Placement Diagnosis: Recurrent Left lung collapse and hypoxemic respiratory failure Indications: Recurrent Left lung collapse and hypoxemic respiratory failure Anesthesia: Fentanyl IV, propofol gtt Neuromuscular Blockade: Rocuronium Description of the Procedure: The patient was sedated and paralyzed. The patient was positioned in the supine position with a chest roll. The patient's neck was slightly extended. Landmarks were palpated and the anatomy of the anterior neck was deemed normal. A time out procedure was performed. The patient was placed on a volume control mode of ventilation, on 100% FiO2. The patient was prepped and draped sterilely. After negative aspiration, 1% lidocaine with 1:100k epinephrine was injected subcutaneously in the midline neck. An approximately 1.5cm skin incision was made using a #15 blade. Under direct bronchoscopic guidance, the cuff of the endotracheal tube was deflated and the endotracheal tube was retracted to a level above the level of the skin incision. At this point, a 15G introducer needle/catheter was advanced midline under negative aspiration with saline filled syringe until bubbles were seen and the needle and catheter were visualized in the lumen of the trachea. The needle was withdrawn leaving the catheter in place. J-shaped guidewire was advanced through the catheter into the lumen of the trachea. Using a modified Seldinger technique, a 14 Fr, 4.5 cm introducer dilator was used, followed by a Blue Rhino Percutaneous Tracheostomy Dilator, and finally a 28 Fr tracheostomy loading catheter with 8.0 Cuffed Shiley tracheostomy tube. The loading catheter and guidewire were removed and the tracheostomy tube was confirmed in the lumen of the trachea with direct bronchoscopic visualization through tracheostomy, and returning volumes on the ventilator. The tracheostomy was sewn to the skin with interrupted 2.0 Prolene sutures, and a tracheostomy tie was applied to the skin. There were no immediate complications. There was minimal EBL. A chest x-ray has been ordered. I personally performed procedure with Grace Schaffer MD Mar 20, 2017 15:21
--- NOTE | 2017-03-20 16:27 | RADRPT ---
EXAM DATE/TIME: 03/20/2017 15:45 [facility] COMPARISON: CHEST SINGLE AP, March 20, 2017, 11:37. INDICATIONS : S/p tracheostomy MEDICAL HISTORY : Hepatitis C. Myocardial infarction. Arthritis. seizures, depression SURGICAL HISTORY : None. ENCOUNTER: Initial ACUITY: 1 month PAIN SCORE: Non-responsive. LOCATION: Bilateral cranial FINDINGS: The examination demonstrates a partial interval reinflation of the left lung. There is continued atel ectatic change in the left lower lobe. There is mild hyperinflation the right lung. The trach is in g ood position. The osseous structures are intact. CONCLUSION: 1. Significant interval improvement post tracheostomy. There has been partial reinflation of the left lung. There is continued atelectasis of the left lower lobe. 2. No pneumothorax is seen. The tracheostomy is in good position. Cliff Mack MD on March 20, 2017 at 16:24 Board Certified Radiologist. This report was verified electronically.
[2017-03-21] VITALS (19 sets, daily range): BP systolic 124–158; BP diastolic 84–96; PULSE 70–108; RESP 14–18; TEMP 97.8–98.7; O2SAT 93–100
[2017-03-21] MEDS: PROPOFOL 1000 MG/100 ML INJ 100 ML IV PRN ×2 (01:25→05:30)
[2017-03-21] MEDS: RESP: ACETYLCYSTEINE 20% 30 ML NEB NEB SCH ×6 (03:23→23:54)
[2017-03-21] MEDS: RESP: ALBUTEROL 2.5 MG/IPRATROPIUM 0.5 MG NEB (SCH) NEB ×6 (03:23→23:54)
--- NOTE | 2017-03-21 04:49 | RADRPT ---
EXAM DATE/TIME: 03/21/2017 03:55 [facility] COMPARISON: CHEST SINGLE AP, March 20, 2017, 15:45. INDICATIONS : Shortness of breath. MEDICAL HISTORY : Hepatitis C. Myocardial infarction. Arthritis. seizures, depression SURGICAL HISTORY : None. ENCOUNTER: Subsequent ACUITY: 1 month PAIN SCORE: Non-responsive. LOCATION: Bilateral chest FINDINGS: A single view of the chest demonstrates tracheostomy in good position. Nasogastric tube enters stomac h. Basilar lung airspace disease left greater than right but improved from March 20. CONCLUSION: 1. Improving basilar airspace disease. Small left effusion. Tracheostomy and nasogastric tube [facility] ed. Ruy Hussein MD on March 21, 2017 at 4:44 Board Certified Radiologist. This report was verified electronically.
[2017-03-21 04:57] LABS: AUTOMATED NEUTROPHIL # 4.3 TH/MM3 (1.8-7.7); HEMATOCRIT 32.4 % (39.0-51.0); HEMO FLAGS DIFF FINAL; LYMPH % 11.3 % (9.0-44.0); LYMPHOCYTE # 0.6 TH/MM3 (1.0-4.8); MEAN CORPUSCULAR HEMOGLOBIN 34.2 PG (27.0-34.0); MEAN CORPUSCULAR HGB CONC 33.9 % (32.0-36.0); MONO % 6.2 % (0.0-8.0); NEUT % 82.5 % (16.0-70.0); PLATELET COUNT 129 TH/MM3 (150-450); RED BLOOD COUNT 3.21 MIL/MM3 (4.50-5.90); RED CELL DISTRIBUTION WIDTH 14.1 % (11.6-17.2); WHITE BLOOD COUNT 5.2 TH/MM3 (4.0-11.0)
[2017-03-21 05:14] LABS: ALT (GPT) 73 U/L (12-78); ANION GAP 10 MEQ/L (5-15); AST (GOT) 97 U/L (15-37); BICARBONATE 25.8 MEQ/L (21.0-32.0); BLOOD UREA NITROGEN 63 MG/DL (7-18); CHLORIDE 106 MEQ/L (98-107); GLOMERULAR FILTRATION RATE 22 ML/MIN (>89); MAGNESIUM 2.4 MG/DL (1.5-2.5); SODIUM (NA) 142 MEQ/L (136-145)
[2017-03-21 05:16] LABS: ALKALINE PHOSPHATASE 107 U/L (45-117); TOTAL BILIRUBIN ADULT 0.7 MG/DL (0.2-1.0)
[2017-03-21] MEDS: ARTIFICIAL TEARS OPTH SOLN 15 ML BTL EACH EYE SCH ×3 (06:35→22:08)
[2017-03-21] MEDS: CHLORHEXIDINE 0.12% (ORAL KIT) 15 ML CUP MT SCH ×4 (08:00→20:45)
[2017-03-21] MEDS: ALBUMIN HUMAN 25% 25 GM/100 ML BAGP IV SCH ×2 (08:53→20:52)
[2017-03-21] MEDS: BUDESONIDE-FORMOTEROL 160/4.5 MCG INHALER INH SCH ×2 (08:54→21:00)
[2017-03-21] MEDS: TIOTROPIUM BROMIDE 18 MCG INH INH SCH (08:54)
[2017-03-21] MEDS: BENEPROTEIN POWDER 1 PACK G-TUBE SCH ×3 (08:54→18:00)
[2017-03-21] MEDS: methylPREDNISolone SOD SUCC 125 MG/2 ML VIAL IV PUSH SCH ×2 (08:55→20:53)
[2017-03-21] MEDS: LANSOPRAZOLE SOLUTAB 30 MG TAB NG SCH (08:55)
[2017-03-21] MEDS: BUMETANIDE INJ 1 MG/4 ML VIAL IV PUSH SCH ×2 (08:55→18:00)
[2017-03-21] MEDS: SODIUM CHLORIDE 0.9% FLUSH 10 ML FLUSH IV FLUSH SCH ×2 (08:55→21:00)
[2017-03-21] MEDS: METOPROLOL TARTRATE 25 MG TAB PO SCH ×2 (08:55→20:53)
[2017-03-21] MEDS: MULTIVITAMIN TAB PO SCH (08:56)
[2017-03-21] MEDS: THIAMINE HCL 100 MG TAB PO SCH (08:56)
--- NOTE | 2017-03-21 09:58 | HHI.FPPN ---
Subjective Remarks Per nurse report, no bowel movement since yesterday. No other concerns. Patient is mostly unresponsive today, but does open his eyes in response to sternal rub. Then he quickly goes back to sleep. Afebrile and vital signs stable with intermittent mild hypertension overnight. Objective Vitals Vital Signs Date Time Temp Pulse Resp B/P (MAP) Pulse Ox O2 Delivery O2 Flow Rate FiO2 03/21/17 08:47 100 40 03/21/17 06:00 71 03/21/17 05:14 100 40 03/21/17 04:00 60 03/21/17 04:00 98.7 71 16 138/90 (106) 100 03/21/17 04:00 71 03/21/17 02:25 100 50 03/21/17 02:00 70 03/21/17 00:00 98.2 72 16 139/90 (106) 100 03/21/17 00:00 72 03/21/17 00:00 60 03/20/17 22:00 73 03/20/17 20:00 94 03/20/17 20:00 98.0 74 16 139/86 (103) 100 03/20/17 20:00 70 03/20/17 19:30 100 60 03/20/17 19:00 100 Mechanical Ventilator 60 03/20/17 18:00 78 03/20/17 16:16 100 100 03/20/17 16:00 82 03/20/17 16:00 70 03/20/17 16:00 97.8 82 20 160/100 (120) 100 03/20/17 15:00 100 03/20/17 14:30 100 100 03/20/17 14:00 76 03/20/17 12:00 97.8 82 18 151/93 (112) 100 03/20/17 12:00 82 03/20/17 12:00 50 03/20/17 10:59 95 50 03/20/17 10:50 50 03/20/17 10:00 86 03/20/17 09:56 94 Partial Rebreather 12.00 I/O 03/20/17 03/20/17 03/20/17 03/21/17 03/21/17 03/21/17 07:00 15:00 23:00 07:00 15:00 23:00 Intake Total 282 ml Output Total 600 ml 1350 ml 1650 ml Balance -600 ml -1350 ml -1368 ml IV Total 282 ml Output Urine Total 600 ml 1000 ml 1550 ml Gastric Drainage Total 350 ml 100 ml # Bowel Movements 3 2 0 Result Diagram: 03/21/1741303/21/174 Imaging Last Impressions Chest X-Ray 03/21/17 0600 Signed Impressions: Service Date/Time: Tuesday, March 21, 2017 03:55 - CONCLUSION: 1. Improving basilar airspace disease. Small left effusion. Tracheostomy and nasogastric tube unchanged. Ruy Hussein MD Abdomen X-Ray 03/13/17 0000 Signed Impressions: Service Date/Time: Monday, March 13, 2017 13:04 - CONCLUSION: 1. The tip of the NG tube is just through the GE junction and into the stomach. Cliff Mack MD Brain MRI 03/10/17 0000 Signed Impressions: Service Date/Time: Friday, March 10, 2017 15:01 - CONCLUSION: No acute infarct or other acute intracranial abnormality. Atrophy and chronic white matter changes are again noted. Kilo Rowell MD Chest CT 03/09/17 0000 Signed Impressions: Service Date/Time: Thursday, March 09, 2017 04:59 - CONCLUSION: 1. Marked volume loss in the left hemithorax with near-complete collapse of the left lower lobe/lingula. There is still some aeration in the left upper lung. Some of this is due to the moderate sized left-sided effusion although there may be element of airway obstruction/mucus plugging as well. 2. Small right-sided effusion with become atelectatic changes in the right base. 3. Patchy biapical airspace disease.. Tone Henry MD Shoulder X-Ray 03/05/17 0000 Signed Impressions: Service Date/Time: Sunday, March 05, 2017 20:57 - CONCLUSION: No acute disease. Rick Sanford MD Abdomen/Pelvis CT 03/04/17 0000 Signed Impressions: Service Date/Time: Saturday, March 04, 2017 10:31 - CONCLUSION: 1. There is no hydronephrosis or renal abnormality to explain the renal failure. However, there is subtle high density stranding along the medial and upper pole of the right kidney. Suggest followup CT to assess for change. 2. Abnormal mass arising from or abutting the spleen in the left upper quadrant measuring up to 7.5 cm. It contains a small amount of calcification. Suggest correlating with any prior imaging study that could offer additional characterization. If none are available suggest followup imaging to confirm stability and consider contrast enhanced CT or MRI for further characterization when patient condition permits. 3. Small bilateral pleural effusions, left larger than right, with associated compressive atelectasis. 4. Severe coronary artery calcification. Kilo Coulter MD Renal Ultrasound 02/27/17 0000 Signed Impressions: Service Date/Time: Monday, February 27, 2017 20:36 - CONCLUSION: 1. Mildly dilated left renal collecting system. Kidneys normal in size. Trace free fluid. Ruy Hussein MD Head CT 02/23/17 0000 Signed Impressions: Service Date/Time: Thursday, February 23, 2017 07:38 - CONCLUSION: No significant change has occurred. Maximus Pavon MD Objective Remarks GENERAL: male, lying in bed on vent to trach and eyes closed, but he opens his eyes in response to painful stimulus SKIN: Bilateral upper extremities with multiple well-healing scabs on right arm. HEENT: On trach to vent. Pupils grossly symmetrical and reactive. Sclera injected bilaterally. CARDIOVASCULAR: RRR without appreciable murmurs. grossly normal perfusion. No edema RESPIRATORY: normal rate; clear anterior breath sounds bilaterally, without wheezing GASTROINTESTINAL: Abdomen firm, distended, non-tender MUSCULOSKELETAL: no cyanosis. 2+ pitting edema of right arm from wrist to elbow. No calf tenderness. NEURO: opens his eyes in response to sternal rub. otherwise, unresponsive. Procedures Tracheostomy on 03/20 Date of Insertion: Feb 23, 2017 A/P Assessment and Plan 57-year-old white male with past medical history of alcohol withdrawal presented to the ED with severe hypoglycemia and altered mental status; patient has had progressively worsening renal function and is currently being followed for renal failure and continued altered mental status. Pt recently required intubation and sedation for respiratory distress and imaging with opacification of the left lung concerning for left lung collapse in the context of mucus plugging, which was removed on 03/09 and again on 03/18 and again on 03/20. Patient has been reintubated multiple times. Tracheostomy on 03/20. Discharge Planning Pending workup for declining renal function, AMS, weaning off vent Working on plan of care with nurse case management and palliative care social media analyst. While patient was briefly awake and alert, the varnish mixer clarified his code status. He is full code. Problem List: (1) Altered mental status ICD Codes: R41.82 - Altered mental status, unspecified Status: Acute Plan: Patient on vent to trach. Mostly unresponsive today; only responsive to pain. Patient was effectively communicating his wishes to the varnish mixer when he was awake and alert. Thus, patient is full code and he consented to tracheostomy, which was done on 03/20/17. -Ornamental Plasterer Helper consulted and appreciated- intubated and satting well -wean off sedatives -IV solumedrol q12h -CPT -Continue treatment of chronic alcoholism -Continue PO multivitamin -PO thiamine -Occupational therapy recommended OT at rehabilitation (PT recommended OT) when he was at his best. He probably needs full rehab if he improves. -PT, OT, ST -Continue tube feeds at 55ml/hr and 1L of free water per dietary; Seizure precautions Impression: AMS initially suspected secondary to alcoholism or polysubstance abuse; persistent. could be anoxic brain injury from hypoglycemia (2) Respiratory disease ICD Codes: J98.9 - Respiratory disorder, unspecified Status: Acute Plan: Patient re-intubated on 03/20/17. -Plan for tracheostomy removal of mucous plug today. -Continue breathing treatments, O2 per CC/respiratory therapy -Mucomyst -CPT -Bronchial washing cultures negative. Impression: Encephalopathic with likely ORDER ENTRY CLERK damage from polysubstance abuse and/ or anoxic brain injury from hypoglycemia. Thus, patient may be unable to protect airway. Patient with repeated mucous plugging and lung collapses on imaging. Thick secretions likely due to undiagnosed COPD. (3) SAQIB (acute kidney injury) ICD Codes: N17.9 - Acute kidney failure, unspecified Status: Acute Plan: -Nephrology consulted: Diagnosed with Acute renal failure acute tubular necrosis with drug use, Non oliguric, creatinine is stable. -Monitor BMP -Bumex 1mg q12h (4) Hypertension ICD Codes: I10 - Essential (primary) hypertension Status: Chronic Plan: Impression: BPs stable since 03/19 -Continue Amlodipine 10mg PO daily -Hold Hydralazine 25 mg q12h since hypotension -Hydralazine 20 mg IV push every hour when necessary for blood pressure over 160 /90 -Labetalol 20 mg IV push every 4 hours when necessary for systolic blood pressure over 160 -Metoprolol 25 mg q12h -Clonidine 0.1 mg q6h PRN For SBP >/= 170, DBP >/= 100 -Maintain MAP > 65 mmHG -Bumex as above (5) FEN Status: Acute Plan: Fluids: none Electrolytes: Monitor and replace per protocol Nutrition: Tube feeds with free water GI PPx: Lansoprazole 30 mg NG/day VTE prophylaxis: Heparin 5000 units every 12 hours and SCDs Problem Qualifiers (1) Altered mental status: Qualified Codes: R41.0 - Disorientation, unspecified (2) Hypertension: Qualified Codes: I10 - Essential (primary) hypertension Anderson Matt MD R2 Mar 21, 2017 09:58
[2017-03-21] MEDS ORDERED: SENNOSIDES SYRUP 8.8 MG/5 ML CUP PO PRN (10:00)
[2017-03-21] MEDS: FREE WATER G-TUBE SCH ×3 (10:00→22:08)
[2017-03-21] MEDS ORDERED: LACTULOSE SYRUP 20 GM/30 ML CUP PO PRN (10:00)
[2017-03-21] MEDS ORDERED: DOCUSATE SODIUM 100 MG/10 ML UDC PO PRN (10:00)
--- NOTE | 2017-03-21 10:30 | HHI.CCPN ---
Subjective Remarks/Hospital Course This is a 57-year-old male that was found down and admitted to this hospital 02/23/2017. Urine tox screen revealed patient was positive for benzodiazepines and cocaine at that time. Since admission the patient has been on a [facility] protocol, neurology has been consulted Dr. Wayne, with continued supportive care. Over the last 48 hours the patient was noted to have elevation in his creatinine with a significant decrease in urine output acute renal failure nephrology was consulted the patient continues on gentle diuresis and received 80 mg of Lasix IV this afternoon and is currently on sodium bicarbonate infusion at 110 cc/an hour. Due to the patient's respiratory insufficiency, and altered mental status concern for possible continued respiratory decompensation the patient was transferred to the ICU, and critical care was consulted for management. Upon entering the patient's room the patient was noted to be lethargic having received 4 mg of Ativan in the last 4 hours, but opens eyes to sternal rub. The patient was noted to have O2 saturation of 95% on O2 via nasal cannula at 5 L with no accessory respiratory efforts. Stat ABG was ordered pending, to rule out CO2 narcosis. Since admission to ICU the patient was noted to diuresis of 700 cc. 03/03: Afebrile. The patient did not receive any Ativan since 3 PM on 03/02/17. The patient rested well overnight, eventually waking and responding. This a.m. the patient's noted to be sitting up in bed, alert and responsive. Librium has been added to medication regimen for alcohol withdrawal. Noted to be oriented to date of unable to provide name or place at this time. Essential tremors, fine tremors noted. The patient severely weak and unable to feed self without assistance. The patient's diet was advanced to regular diet, tolerating well, 100% consumption. PO meds were held since admission to ICU secondary to lethargy, all by mouth meds resumed this a.m.. The patient currently is compliant following commands, inappropriate responses, with noted incomprehensible words, language at times. Patient is noted to be very weak. Nasal cannula O2 has been weaned down to approximately 3 L, the patient appears in no respiratory distress. Subjective: 03/09: Reconsulted secondary acute respiratory failure. Chest x-ray earlier in the morning revealed collapse versus large pleural effusion left side. Patient oxygen requirements had increased from 4 L to a nonrebreather mask. CT thorax revealed likely mucous plugging/collapsed lung left side. Small to moderate left pleural effusion. Patient was combative upon arrival ICU in place in soft restraints. Due to mental status/mucous plugging patient was electively intubated using 20 mg etomidate and 50 mg, rocuronium. Patient was bronched which revealed thick white mucous plugging in the left and right mainstem. These were lavaged to left upper lobe/lingula and left lower lobe, right upper middle and lower lobes. Samples were sent see orders. Currently sedated with propofol and fentanyl drips. 03/10: Tonic seizures today when propofol stopped. Seizures ceased with propofol bolus. Left pneumonia persists but improved aeration after bronch . 03/11: Gas exchange acceptable. Continues to have tonic "seizures" when propofol is lightened. EEG 03/10 states no seizures but we will repeat EEG again today with stimulation and off propofol. Can't extubate until this "seizure" activity is resolved. Vomited tube feeds, will reduce and add reglan. 03/12: Off sedation tolerating CPAP even though intermittently apneic. Appears to follows commands but weekly on the upper extremity. No obvious seizures. EEG negative for seizure 03/11/17. Creatinine slightly improved to 2.8 from 3 03/13: Failed extubation on 03/12. Currently sedated, orally intubated on mechanical ventilation. Has thick copious respiratory secretions per COMMODITY ANALYST. 03/14: Remains sedated, orally intubated on mechanical ventilation. Feeling C Pap trials. Not following commands on lightening sedation. 03/15: Remains intubated encephalopathy. Left lower lobe infiltrate again indicating probable mucous plugging/collapse. Palliative care meeting with family today. I recommend tracheostomy and PEG tube placement. D/W palliative care team 03/16: Off sedation since yesterday 5PM. Eyes open spontaneously. Following commands bilateral upper extremity, he squeezes with both hands. Discussed with Dr. Kingston. Will continue weaning attempt with plan for wean to extubate. s/p bronchoscopy yesterday, with re expansion of L lung. Has moderate secretions. I have updated Lore Darling (sister) about improvement in neuro exam. See below 03/17: Tolerated CPAP 7 hours yesterday. Currently on CPAP. Lethargic/somnolent but follows commands, gives thumbs up on bilateral UE. Creat stable. UO 750 ml in 24 hours. BAL negative to date 03/18: Remains intubated off sedation. There is further improvement in neuro exam, able to move both feet to command, gives thumbs up on both upper extremities. Chest x-ray shows complete white out of the left lung field. We' ll plan for emergency bronchoscopy 03/19: Extubated yesterday, overnight appeared to be having mucus plugging involving L lung. But currently patient is saturating well. He somnolent but wakes up easily and nodding appropriately and following commands, in the bilateral upper extremity 03/20: Today around 5.30 AM, patient acutely became hypoxemic with diminished breath sounds on the left lung field. Placed on nonrebreather clinical exam was consistent with left lower lobe mucus plugging according to Dr. Chadwick. With aggressive suctioning and Mucomyst and DuoNeb breathing treatments, patient 's air entry and saturation improved slightly. Currently on 100% nonrebreather oxygen saturation 90-92% tachypneic but not in severe distress. I discussed tracheostomy with the patient, witnessed by RN Aniket and Dixie. I explained to him that If he gets reintubated he will need tracheostomy due to frequent mucus plugging, with left lung collapse. Patient understands tracheostomy procedure, and wants tracheostomy done in case of reintubation. 03/21: Re intubated yesterday for LLL collapse. Tracheostomy performed yesterday afternoon. Difficult bronchoscopy with therapeutic bronchoscope and multiple attempts to remove the mucus plugging because of the very thick tenacious nature of the plugs. Continue breathing treatments Mucomyst for now. Chest percussion with speciality bed Objective Vital Signs Date Time Temp Pulse Resp B/P (MAP) Pulse Ox O2 Delivery O2 Flow Rate FiO2 03/21/17 08:47 100 40 03/21/17 08:00 77 03/21/17 07:00 Mechanical Ventilator 03/21/17 04:00 98.7 16 138/90 (106) 03/20/17 09:56 12.00 Intake and Output 03/21/17 03/21/17 03/22/17 08:00 16:00 00:00 Intake Total 282 ml Output Total 1650 ml Balance -1368 ml Result Diagram: 03/21/17 0414 03/21/17 0414 Other Results Laboratory Tests Test 03/20/17 12:06 Blood Gas Puncture Site LT RADIAL Blood Gas Patient Temperature 98.6 Blood Gas HCO3 25 mmol/L (22-26) Blood Gas Base Excess 0.6 mmol/L (-2-2) Blood Gas Oxygen Saturation 96 % (90-100) Arterial Blood pH 7.41 (7.380-7.420) Arterial Blood Partial Pressure CO2 39 mmHg (38-42) Arterial Blood Partial Pressure O2 108 mmHg (61-120) Arterial Blood Oxygen Content 15.0 Vol % (12.0-20.0) Arterial Blood Carboxyhemoglobin 1.2 % (0-4) Arterial Blood Methemoglobin 0.7 % (0-2) Blood Gas Hemoglobin 11.0 G/DL (12.0-16.0) Oxygen Delivery Device VENTILATOR Blood Gas Ventilator Setting Blood Gas Inspired Oxygen 70 % Imaging Last Impressions Shoulder X-Ray 03/05/17 0000 Signed Impressions: Service Date/Time: Sunday, March 05, 2017 20:57 - CONCLUSION: No acute disease. Rick Sanford MD Abdomen/Pelvis CT 03/04/17 0000 Signed Impressions: Service Date/Time: Saturday, March 04, 2017 10:31 - CONCLUSION: 1. There is no hydronephrosis or renal abnormality to explain the renal failure. However, there is subtle high density stranding along the medial and upper pole of the right kidney. Suggest followup CT to assess for change. 2. Abnormal mass arising from or abutting the spleen in the left upper quadrant measuring up to 7.5 cm. It contains a small amount of calcification. Suggest correlating with any prior imaging study that could offer additional characterization. If none are available suggest followup imaging to confirm stability and consider contrast enhanced CT or MRI for further characterization when patient condition permits. 3. Small bilateral pleural effusions, left larger than right, with associated compressive atelectasis. 4. Severe coronary artery calcification. Kilo Coulter MD Chest X-Ray 03/02/17 0000 Signed Impressions: Service Date/Time: Thursday, March 02, 2017 08:18 - CONCLUSION: Increasing consolidative changes left base. Nasir Mack MD FACR Renal Ultrasound 02/27/17 0000 Signed Impressions: Service Date/Time: Monday, February 27, 2017 20:36 - CONCLUSION: 1. Mildly dilated left renal collecting system. Kidneys normal in size. Trace free fluid. Ruy Hussein MD Brain MRI 02/25/17 0000 Signed Impressions: Service Date/Time: Saturday, February 25, 2017 12:37 - CONCLUSION: Atrophy, periventricular changes without evidence for acute infarction. Nasir Mack MD FACR Head CT 02/23/17 0000 Signed Impressions: Service Date/Time: Thursday, February 23, 2017 07:38 - CONCLUSION: No significant change has occurred. Maximus Pavon MD Objective Remarks GENERAL: 57-year-old male, awake alert in moderate respiratory distress hypoxic on 100% nonrebreather SKIN: Warm and dry. Clean gauze dressing right forearm HEAD: Atraumatic. Normocephalic. EYES: Pupils equal and round around 2 mm bilaterally and reactive. No scleral icterus. No injection or drainage. ENT: No nasal bleeding or discharge. Oral cavity is moist NECK: Trachea midline. CARDIOVASCULAR: RRR, tachycardic. S1, S2 no S4. Without murmur. No JVD. RESPIRATORY: Diminished breath sounds left lung thomas. Few coarse rhonchi. Bilateral course crackles GASTROINTESTINAL: Abdomen soft, non-tender, nondistended. Active bowel sounds appreciated MUSCULOSKELETAL: Extremities without without significant peripheral edema. No obvious deformities. Right forearm dressing NEUROLOGICAL: Awake alert oriented to person place and time, nodding appropriately to questions, and conversant. Follows commands bilateral upper and lower extremities. Moves all extremities spontaneously. Date of Insertion: Feb 23, 2017 A/P Assessment and Plan Neuro/Psych: Encephalopathy/Delirium most likely metabolic Admission with EtOH withdrawal - likely completed Polysubstance abuse including cocaine and benzodiazepines Polyneuropathy of critical illness Improved neuro exam. Was following commands, oriented to person place and time before sedation for intubation and trach 03/20/17 Wean propofol and fentanyl as tolerated Patient is followed by Dr. Rogel neurology. EEG's reveal moderate encephalopathy no epileptiform activity. MRI negative for acute findings Previously on Seroquel 25 mg at night DCd and Haldol when necessary- discontinued 03/15/17 Librium DCd 03/15/17 Seizure precautions ?Seizures 03/10-EEG negative for seizures. Continue thiamine 100 mg daily Respiratory: Acute hypoxemic respiratory failure secondary to aspiration Recurrent left lower lobe collapse/mucus plugging Complete opacification of left lung field due to mucus plugging 03/18/17 s/p tracheostomy 03/20/17 Status post extubation after therapeutic bronchoscopy 03/18/17 and reintubated for left lower lobe collapse on 03/20/17 s/p Tracheostomy 03/21/17. Difficult bronchoscopy with therapeutic scope and multiple attempts to remove very thick mucus plugs from left main bronchus. Continue breathing treatments Mucomyst for now. Chest percussion with speciality bed Patient wants to continue full code and also consented for tracheostomy if he gets reintubated. Witnessed by RNs Aniket and Dixie on 03/20/17 IV Solumedrol 60 q12 03/17/17. Was on Symbicort and Spiriva CT thorax from 03/09 revealed collapse left upper/lingula lobes with significant secretions left main bronchus. s/p bronch Improved aeration 03/10 Cardiovascular: Hypertension Fluid overload Amlodipine 10 mg daily, clonidine 0.1 mg 3 times a day and metoprolol 5 mg by mouth twice a day for hypertension, with holding parameters Use when necessary labetalol and hydralazine when patient is nothing by mouth Maintain MAP > 65 mmHG Bumex as below Renal: Acute kidney injury secondary to ATN Nephrology following Dr. Martinez. Creat 2.9. UO 2.5 L in 24 hours Accurate I's and O's, Monitor urine output. Continue Hall catheter due to worsening renal failure Start scheduled Bumex 2 mg now and 1 mg every 12 03/20/17 No signs of hydronephrosis on renal imaging,Urine eosinophils negative FEN/GI: Mild protein calorie malnutrition Hyperkalemia-resolved Hep C Continue tube feeds, hold off PEG tube as patient may be able to take PO diet once off vent Lansoprazole for GI prophylaxis Docusate sodium senna 1 tablet twice a day for bowel regimen. Having daily BM Heme/ID: Macro Anemia Thrombocytopenia Probable Pneumonia F/U BAL 03/15-neg to date On previous cultures in BAL have been negative except 02/23 coag negative staph which is contamination Cefepime discontinued 03/19/17, DCd Flagyl and azithromycin 03/09/17-03/15/17 Endocrine: Sliding-scale insulin to maintain euglycemia/low regimen with NovoLog every 6 hours Prophylaxis: GI Prophylaxis Lansoprazole DVT Prophylaxis SCDs/heparin subcutaneous Lines: Peripheral IVs providing adequate access at this time. Palliative care team following to assist with deciding goals of therapy. CCT 35 MIN Overall impression: Critically ill with acute respiratory deterioration from recurrent mucus plugging and hypoxemic respiratory failure. Intubated and trached 03/20/17 03/15/17: I discussed and updated Lore Darling (sister) over the phone: [phone]. I explained to her improvement in neurological status. She is agreeable to continued care since there is improvement, and she does not want any other invasive procedures at this time and if there is any further clinical deterioration she wants to pursue comfort measures Grace Boateng MD Mar 21, 2017 10:30
[2017-03-21] MEDS: HEPARIN SODIUM - SQ 10,000 UNITS/ML VIAL SQ SCH ×2 (10:48→23:44)
--- NOTE | 2017-03-21 14:39 | HHI.NPPN ---
Subjective History of Present Illness 57-year-old male with the alcohol withdrawal, altered mental status, acute renal failure Additional Remarks Patient re intubated again s/p Trach Objective Data Data Vital Signs Date Time Temp Pulse Resp B/P (MAP) Pulse Ox O2 Delivery O2 Flow Rate FiO2 03/21/17 12:52 100 40 03/21/17 12:00 76 03/21/17 12:00 60 03/21/17 10:00 95 03/21/17 08:47 100 40 03/21/17 08:00 77 03/21/17 08:00 97.8 72 16 158/96 (116) 100 03/21/17 08:00 60 03/21/17 07:00 100 Mechanical Ventilator 60 03/21/17 06:00 71 03/21/17 05:14 100 40 03/21/17 04:00 60 03/21/17 04:00 98.7 71 16 138/90 (106) 100 03/21/17 04:00 71 03/21/17 02:25 100 50 03/21/17 02:00 70 03/21/17 00:00 98.2 72 16 139/90 (106) 100 03/21/17 00:00 72 03/21/17 00:00 60 03/20/17 22:00 73 03/20/17 20:00 94 03/20/17 20:00 98.0 74 16 139/86 (103) 100 03/20/17 20:00 70 03/20/17 19:30 100 60 03/20/17 19:00 100 Mechanical Ventilator 60 03/20/17 18:00 78 03/20/17 16:16 100 100 03/20/17 16:00 82 03/20/17 16:00 70 03/20/17 16:00 97.8 82 20 160/100 (120) 100 03/20/17 15:00 100 -: 03/21/17 0414 03/21/17413 Physical Exam General Appearance: Malnourished Eyes Eye Exam: Pupils Equal Throat Throat Exam: Oral Mucosa [place] & Moist Neck Neck Exam: Neck Supple Pulmonary Resp Exam: Crackles, Rhonchi, Decreased Bases, Diminished Breath Sounds Cardiology CV Exam: Regular, Normal Sinus Rhythm Gastrointestinal/Abdomen GI Exam: Soft, Non-Tender, Bowel Sounds Present Musculoskeletal MS Remarks left shoulder sub laxation ? dislocated Extremeties Extremities Exam: Trace Edema Neurologic Neuro Exam: Obtunded Assessment/Plan Problem List: (1) SAQIB (acute kidney injury) ICD Codes: N17.9 - Acute kidney failure, unspecified Status: Acute Plan: Acute renal failure acute tubular necrosis with drug use Non oliguric, creatinine is higher at 2.9 s/p Trach Hepatitis C positive Ammonia not high s/p bronchoscopy with removal of mucous plug self extubated, multiple re intubations, now going to have Trach CT scan abdominal reviewed Subtle high density stranding medial/upper right kidney. Abnormal mass arising from/abutting spleen LUQ measuring up to 7.5 cm with small amount of calcification. FIDEL is positive 1:80, low titre. Creatinine is at 2.9, Urine out put is better. Follow urine out put and BMP. send Anti DNA as FIDEL was positive low titer check ANCA C3 87 slightly low C4 normal doubt auto immune process may need a Kidney biopsy if do not improve may need to be off vent (2) Alcohol withdrawal ICD Codes: F10.239 - Alcohol dependence with withdrawal, unspecified Status: Chronic Plan: Patient remained in altered mental status (3) Hypertension ICD Codes: I10 - Essential (primary) hypertension Status: Chronic Plan: Patient's blood pressure was labile continue to monitor Problem Qualifiers (1) Alcohol withdrawal: Qualified Codes: F10.231 - Alcohol dependence with withdrawal delirium (2) Hypertension: Qualified Codes: I10 - Essential (primary) hypertension Daryl Martinez MD Mar 21, 2017 14:39
--- NOTE | 2017-03-21 16:33 | HHI.HCPN ---
Reason for visit a. To assist with evaluation and management of symptoms including: Shortness of breath, debility b. To assist medical decision maker(s) with: better understanding of current medical conditions; weighing benefits/burdens of medical treatment options; making medical treatment decisions. (Ana Posadas) Subjective/Interval History Mr. Cuevas is a 57 years old male with a medical history significant for EtOH use and abuse, tobacco use and abuse and depression. Patient was brought to [facility] ED on 02/23/17 via [place] the 40s. Patient was admitted for management of altered mental status associated with withdrawal delirium tremens and cellulitis to right upper extremity. Clinical course complicated by acute kidney failure, persistent altered mental status and respiratory failure requiring intubation and mechanical ventilation. Palliative care consulted for further clarifications of goals of care. Interval history: Patient was reintubated and tracheostomy placement performed yesterday. Patient seen in ICU, awake and alert, trached on mechanical ventilation with no sedation. Followed simple commands with bilateral upper extremities. Vent settings PRVC/AC 16/600/8/IP 1.0/40% . O2 saturation high 90s to 100. Chest x -ray today revealing proven basilar a space disease and small left effusion. Patient afebrile. SBP 130s to 150s. Laboratory results 03/21/17 revealing WBC 5.2, hemoglobin 11.0, hematocrit 32.4, platelet count 129, sodium 142, potassium 4.0, BUN/creatinine 63/2.92, AST 97, AL T 73, albumin 3.2. Telephone conversation with patient's sister Lore Darling, medical status update provided. Case discussed with Dr. Boateng. Family/friend interactions Telephone conversation with patient's sister Lore Darling . (Ana Posadas) Advance Directives Living Will: Copy in medical record Health Care Surrogate: Never completed Durable Power of Bottle Dealer: Never completed (Ana Posadas) Advance Directive Specifics Date completed: 03/20/2017 . Health Care Surrogate(s): Sister-Lore Darling . (Ana Posadas) Objective Vital Signs Date Time Temp Pulse Resp B/P (MAP) Pulse Ox O2 Delivery O2 Flow Rate FiO2 03/21/17 14:00 97 03/21/17 12:52 100 40 9/27/17 12:00 97.8 91 14 137/88 (104) 98 03/21/17 12:00 76 03/21/17 12:00 60 03/21/17 10:00 95 03/21/17 08:47 100 40 03/21/17 08:00 77 03/21/17 08:00 97.8 72 16 158/96 (116) 100 03/21/17 08:00 60 03/21/17 07:00 100 Mechanical Ventilator 60 03/21/17 06:00 71 03/21/17 05:14 100 40 03/21/17 04:00 60 03/21/17 04:00 98.7 71 16 138/90 (106) 100 03/21/17 04:00 71 03/21/17 02:25 100 50 03/21/17 02:00 70 03/21/17 00:00 98.2 72 16 139/90 (106) 100 03/21/17 00:00 72 03/21/17 00:00 60 03/20/17 22:00 73 03/20/17 20:00 94 03/20/17 20:00 98.0 74 16 139/86 (103) 100 03/20/17 20:00 70 03/20/17 19:30 100 60 03/20/17 19:00 100 Mechanical Ventilator 60 03/20/17 18:00 78 03/20/17 16:16 100 100 03/20/17 16:00 82 03/20/17 16:00 70 03/20/17 16:00 97.8 82 20 160/100 (120) 100 Intake & Output 03/21/17 03/21/17 07:00 19:00 Intake Total 282 ml Output Total 1650 ml Balance -1368 ml IV Total 282 ml Output Urine Total 1550 ml Gastric Drainage Total 100 ml # Bowel Movements 0 Physical Exam CONSTITUTIONAL/GENERAL: This is an ill looking male who looks older than stated age, trached and on mechanical ventilation TUBES/LINES/DRAINS: PIVs, Hall catheter, SCDs. SKIN: Rash/ecchymosis to RUE. Scattered ecchymoses on upper extremities. Open areas/scabs to right upper extremity. Scattered scabs on face. Skin temperature appropriate. HEAD: Atraumatic. Normocephalic. EYES: Pupils equal and round and reactive. No scleral icterus. No injection or drainage. NECK: Trachea midline. Supple, nontender. CARDIOVASCULAR: Regular rhythm, controlled rate, S1, S2, S3 gallop, no murmur. RESPIRATORY/CHEST: Symmetric, unlabored respirations. Lungs rhonchi to auscultation. GASTROINTESTINAL: Abdomen soft, non-tender, nondistended. Bowel sounds present. GENITOURINARY: Without palpable bladder distension. Hall catheter in place. MUSCULOSKELETAL: Extremities without clubbing, cyanosis. 1+ dependent edema. NEUROLOGICAL: Awake, lethargic, weak, nods appropriately, previously saying a few words. PSYCHIATRIC: Calm, fatigued . (Ana Posadas) Diagnostic Tests Laboratory Laboratory Tests Test 03/19/17 06:48 03/19/17 15:38 03/20/17 04:13 03/20/17 09:01 White Blood Count 6.9 TH/MM3 (4.0-11.0) 7.8 TH/MM3 (4.0-11.0) Red Blood Count 3.41 MIL/MM3 (4.50-5.90) 3.21 MIL/MM3 (4.50-5.90) Hemoglobin 11.4 GM/DL (13.0-17.0) 11.1 GM/DL (13.0-17.0) Hematocrit 34.8 % (39.0-51.0) 32.6 % (39.0-51.0) Mean Corpuscular Volume 102.1 FL (80.0-100.0) 101.5 FL (80.0-100.0) Mean Corpuscular Hemoglobin 33.6 PG (27.0-34.0) 34.5 PG (27.0-34.0) Mean Corpuscular Hemoglobin Concent 32.9 % (32.0-36.0) 34.0 % (32.0-36.0) Red Cell Distribution Width 14.0 % (11.6-17.2) 13.8 % (11.6-17.2) Platelet Count 104 TH/MM3 (150-450) 131 TH/MM3 (150-450) Mean Platelet Volume 10.0 FL (7.0-11.0) 10.5 FL (7.0-11.0) Neutrophils (%) (Auto) 82.0 % (16.0-70.0) 84.4 % (16.0-70.0) Lymphocytes (%) (Auto) 13.5 % (9.0-44.0) 10.6 % (9.0-44.0) Monocytes (%) (Auto) 4.3 % (0.0-8.0) 4.9 % (0.0-8.0) Eosinophils (%) (Auto) 0.0 % (0.0-4.0) 0.0 % (0.0-4.0) Basophils (%) (Auto) 0.2 % (0.0-2.0) 0.1 % (0.0-2.0) Neutrophils # (Auto) 5.7 TH/MM3 (1.8-7.7) 6.6 TH/MM3 (1.8-7.7) Lymphocytes # (Auto) 0.9 TH/MM3 (1.0-4.8) 0.8 TH/MM3 (1.0-4.8) Monocytes # (Auto) 0.3 TH/MM3 (0-0.9) 0.4 TH/MM3 (0-0.9) Eosinophils # (Auto) 0.0 TH/MM3 (0-0.4) 0.0 TH/MM3 (0-0.4) Basophils # (Auto) 0.0 TH/MM3 (0-0.2) 0.0 TH/MM3 (0-0.2) CBC Comment DIFF FINAL DIFF FINAL Differential Comment Hematology Comments Blood Urea Nitrogen 57 MG/DL (7-18) 62 MG/DL (7-18) Creatinine 2.89 MG/DL (0.60-1.30) 2.82 MG/DL (0.60-1.30) Random Glucose 95 MG/DL (74-106) 101 MG/DL (74-106) Total Protein 7.4 GM/DL (6.4-8.2) 7.7 GM/DL (6.4-8.2) Albumin 2.6 GM/DL (3.4-5.0) 3.0 GM/DL (3.4-5.0) Calcium Level 9.1 MG/DL (8.5-10.1) 9.0 MG/DL (8.5-10.1) Alkaline Phosphatase 97 U/L (45-117) 112 U/L (45-117) Aspartate Amino Transf (AST/SGOT) 81 U/L (15-37) 96 U/L (15-37) Alanine Aminotransferase (ALT/SGPT) 44 U/L (12-78) 59 U/L (12-78) Total Bilirubin 0.5 MG/DL (0.2-1.0) 0.5 MG/DL (0.2-1.0) Sodium Level 140 MEQ/L (136-145) 142 MEQ/L (136-145) Potassium Level 4.7 MEQ/L (3.5-5.1) 4.4 MEQ/L (3.5-5.1) Chloride Level 107 MEQ/L (98-107) 105 MEQ/L (98-107) Carbon Dioxide Level 23.8 MEQ/L (21.0-32.0) 27.2 MEQ/L (21.0-32.0) Anion Gap 9 MEQ/L (5-15) 10 MEQ/L (5-15) Estimat Glomerular Filtration Rate 23 ML/MIN (>89) 23 ML/MIN (>89) Anti-Double Strand DNA Antibody <12.3 IU/mL Magnesium Level 2.4 MG/DL (1.5-2.5) Complement C3 87 MG/DL (90-180) Complement C4 15 MG/DL (10-40) Blood Gas Puncture Site RT RADIAL Blood Gas Patient Temperature 98.6 Blood Gas HCO3 25 mmol/L (22-26) Blood Gas Base Excess 1.2 mmol/L (-2-2) Blood Gas Oxygen Saturation 93 % (90-100) Arterial Blood pH 7.42 (7.380-7.420) Arterial Blood Partial Pressure CO2 39 mmHg (38-42) Arterial Blood Partial Pressure O2 75 mmHg (61-120) Arterial Blood Oxygen Content 14.6 Vol % (12.0-20.0) Arterial Blood Carboxyhemoglobin 1.3 % (0-4) Arterial Blood Methemoglobin 0.8 % (0-2) Blood Gas Hemoglobin 11.1 G/DL (12.0-16.0) Oxygen Delivery Device Non-Rebreathing Mask Blood Gas Liter Flow 15 L/M Blood Gas Inspired Oxygen 100 % Test 03/20/17 12:06 03/21/17 04:14 Blood Gas Puncture Site LT RADIAL Blood Gas Patient Temperature 98.6 Blood Gas HCO3 25 mmol/L (22-26) Blood Gas Base Excess 0.6 mmol/L (-2-2) Blood Gas Oxygen Saturation 96 % (90-100) Arterial Blood pH 7.41 (7.380-7.420) Arterial Blood Partial Pressure CO2 39 mmHg (38-42) Arterial Blood Partial Pressure O2 108 mmHg (61-120) Arterial Blood Oxygen Content 15.0 Vol % (12.0-20.0) Arterial Blood Carboxyhemoglobin 1.2 % (0-4) Arterial Blood Methemoglobin 0.7 % (0-2) Blood Gas Hemoglobin 11.0 G/DL (12.0-16.0) Oxygen Delivery Device VENTILATOR Blood Gas Ventilator Setting Blood Gas Inspired Oxygen 70 % White Blood Count 5.2 TH/MM3 (4.0-11.0) Red Blood Count 3.21 MIL/MM3 (4.50-5.90) Hemoglobin 11.0 GM/DL (13.0-17.0) Hematocrit 32.4 % (39.0-51.0) Mean Corpuscular Volume 101.0 FL (80.0-100.0) Mean Corpuscular Hemoglobin 34.2 PG (27.0-34.0) Mean Corpuscular Hemoglobin Concent 33.9 % (32.0-36.0) Red Cell Distribution Width 14.1 % (11.6-17.2) Platelet Count 129 TH/MM3 (150-450) Mean Platelet Volume 10.1 FL (7.0-11.0) Neutrophils (%) (Auto) 82.5 % (16.0-70.0) Lymphocytes (%) (Auto) 11.3 % (9.0-44.0) Monocytes (%) (Auto) 6.2 % (0.0-8.0) Eosinophils (%) (Auto) 0.0 % (0.0-4.0) Basophils (%) (Auto) 0.0 % (0.0-2.0) Neutrophils # (Auto) 4.3 TH/MM3 (1.8-7.7) Lymphocytes # (Auto) 0.6 TH/MM3 (1.0-4.8) Monocytes # (Auto) 0.3 TH/MM3 (0-0.9) Eosinophils # (Auto) 0.0 TH/MM3 (0-0.4) Basophils # (Auto) 0.0 TH/MM3 (0-0.2) CBC Comment DIFF FINAL Differential Comment Blood Urea Nitrogen 63 MG/DL (7-18) Creatinine 2.92 MG/DL (0.60-1.30) Random Glucose 101 MG/DL (74-106) Total Protein 7.6 GM/DL (6.4-8.2) Albumin 3.2 GM/DL (3.4-5.0) Calcium Level 9.0 MG/DL (8.5-10.1) Magnesium Level 2.4 MG/DL (1.5-2.5) Alkaline Phosphatase 107 U/L (45-117) Aspartate Amino Transf (AST/SGOT) 97 U/L (15-37) Alanine Aminotransferase (ALT/SGPT) 73 U/L (12-78) Total Bilirubin 0.7 MG/DL (0.2-1.0) Sodium Level 142 MEQ/L (136-145) Potassium Level 4.0 MEQ/L (3.5-5.1) Chloride Level 106 MEQ/L (98-107) Carbon Dioxide Level 25.8 MEQ/L (21.0-32.0) Anion Gap 10 MEQ/L (5-15) Estimat Glomerular Filtration Rate 22 ML/MIN (>89) (Ana Posadas) Result Diagram: 03/21/1741303/21/17413 Imaging Last 72 hours Impressions Chest X-Ray 03/21/17 0600 Signed Impressions: Service Date/Time: Tuesday, March 21, 2017 03:55 - CONCLUSION: 1. Improving basilar airspace disease. Small left effusion. Tracheostomy and nasogastric tube unchanged. Ruy Hussein MD Chest X-Ray 03/20/17 0600 Signed Impressions: Service Date/Time: Monday, March 20, 2017 05:46 - CONCLUSION: 1. Interval extubation with increasing basilar airspace disease and left pleural effusion. Ruy Hussein MD Chest X-Ray 03/20/17 0000 Signed Impressions: Service Date/Time: Monday, March 20, 2017 15:45 - CONCLUSION: 1. Significant interval improvement post tracheostomy. There has been partial reinflation of the left lung. There is continued atelectasis of the left lower lobe. 2. No pneumothorax is seen. The tracheostomy is in good position. Cliff Mack MD Chest X-Ray 03/20/17 0000 Signed Impressions: Service Date/Time: Monday, March 20, 2017 11:37 - CONCLUSION: Total opacification of the left hemithorax. Kilo Maravilla MD Procedures * 03/20/17 -Bronchoscopy & Tracheostomy placement * 03/20/17-Reintubation * 03/19/17 -Extubated * 03/18/17 -Bronchoscopy * 03/15/17 -bronchoscopy * 03/12/17 -reintubated * 03/12/17 -medical extubated * 03/09/17 -endotracheal Intubation * 03/09/17 -Bronchoscopy . (Ana Posadas) Assessment and Plan Disease Oriented Problem List: (1) Acute hypoxemic respiratory failure (2) Acute kidney injury (3) PNA (pneumonia) (4) Encephalopathy (5) Cellulitis (6) Protein-calorie malnutrition (7) Physical deconditioning Symptom Scale: (1) Shortness of breath 0-10 Scale: Unable to quantify Comment: Currently intubated on mechanical ventilation. Reintubated 03/12/17. (2) Anxiety 0-10 Scale: Unable to quantify (3) Debility 0-10 Scale: Unable to quantify Comment: Progressive given acute events and prolonged hospitalization. Pertinent Non-Medical Issues Psychosocial: Patient is homeless. Chronic alcohol abuse and polysubstance abuse. On an admission in April, patient stated that he grew up in [place], [place], highest level of education is high school. Patient has as per records. Patient's mother and father . Patient also reported that he had been incarcerated at least 50 times. Spiritual: Unknown. Legal: unknown if advance directives have been completed. Ethical issues impacting care: Important Contacts Lore Darling (sister): [phone] . Prognosis Mr. Cuevas is a 57 years old male with a medical history significant for EtOH use and abuse, tobacco use and abuse and depression. Patient was brought to [facility] ED on 02/23/17 via [place] the 40s. Patient was admitted for management of altered mental status associated with withdrawal delirium tremens and cellulitis to right upper extremity. Clinical course complicated by persistent encephalopathy, acute kidney injury and respiratory failure required intubation , tracheostomy and mechanical ventilation. Patient's overall prognosis is poor given the above. . Code Status: No Code Plan PLAN: Legal decision maker: Patient trached on a ventilator with no sedation, awake and following simple commands. Patient capacitated to make his own medical decisions, however patient`s sister Lore Darling is now his [place] care surrogate and will assist with medical decision in case of his incapacitation. Goals: Continue to be aggressive. CODE STATUS: FULL CODE SYMPTOMS: * Dyspnea - patient trached 03/20/17 and remains on mechanical ventilation. O2 Sat high 90s-100s. Patient receiving, Symbicort, Spiriva, Mucomyst, DuoNeb, Solu-Medrol and albuterol. Chest percussion with speciality bed. * Debility - he is extremely weak and fatigued. Physical therapy and occupational therapy are following. Up to stretcher chair only at this time. Will need continuous and extensive therapy. Palliative care will continue to follow the patient during hospital course as condition evolves, to assist patient/decision-maker with understanding of their medical conditions, weighing benefits/burdens of treatment options, for clarification of goals of treatment. Additionally will assist with any symptoms of palliative concern . (Ana Posadas) Plan Patient seen interval visit with GREGORY Huddleston. Reviewed about documentation and agree with same. (Shannan Armas) Attestation To help prompt me to consider important information that might be impacting todays encounter, some historical information from prior notes written by myself or my colleagues may have been brought forward into todays note. My signature on this note, however, is an attestation that I personally performed the exam noted today, and, unless otherwise dated, the interactions with patient , family, and staff as well as the review of records noted all occurred today. I also attest that the listed assessment and stated plan reflect my best clinical judgment today based on the combination of historical information, prior notes, and todays exam/ interactions. The level of evaluation / management services and/or time that is claimed for this visit does NOT include work or time done by myself or other providers on previous visits. . (Ana Posadas) Attestation To help prompt me to consider important information that might be impacting today's encounter and assessment, information from prior notes written by myself or my colleagues may have been "brought forward" into today's note. My signature on this note, however, is an attestation that I personally performed the exam, history, and/or decision-making noted today, and, unless otherwise indicated, the interactions with patient, family, and staff as well as the review of records all occurred today. I also attest that the listed assessment and stated plan reflect my best clinical judgment today based on the combination of historical information, prior notes, and today's exam/ interactions. When time spent is documented, it refers only to time spent today by the signer, or if indicated, combined time spent today by collaborating physician/nurse practitioner. (Shannan Armas) Ana Posadas Mar 21, 2017 16:27 Shannan Armas Mar 21, 2017 17:15
[2017-03-22] VITALS (20 sets, daily range): BP systolic 131–152; BP diastolic 83–95; PULSE 69–98; RESP 16–26; TEMP 97.7–99.9; O2SAT 95–100
[2017-03-22] MEDS: RESP: ALBUTEROL 2.5 MG/IPRATROPIUM 0.5 MG NEB (SCH) NEB ×6 (03:31→23:31)
[2017-03-22] MEDS: RESP: ACETYLCYSTEINE 20% 30 ML NEB NEB SCH ×6 (03:31→23:32)
[2017-03-22 05:47] LABS: BICARBONATE 28.8 MEQ/L (21.0-32.0); POTASSIUM 3.9 MEQ/L (3.5-5.1)
[2017-03-22] MEDS: ARTIFICIAL TEARS OPTH SOLN 15 ML BTL EACH EYE SCH ×3 (06:31→20:53)
[2017-03-22] MEDS: FREE WATER G-TUBE SCH ×3 (06:31→22:00)
[2017-03-22] MEDS: CHLORHEXIDINE 0.12% (ORAL KIT) 15 ML CUP MT SCH ×4 (08:00→20:53)
--- NOTE | 2017-03-22 08:37 | HHI.PR ---
Objective Vital Signs Date Time Temp Pulse Resp B/P (MAP) Pulse Ox O2 Delivery O2 Flow Rate FiO2 03/22/17 08:13 40 03/22/17 07:30 97 40 03/22/17 07:00 95 Mechanical Ventilator 40 03/22/17 06:00 91 03/22/17 04:24 95 40 03/22/17 04:00 98.8 90 16 137/87 (104) 99 03/22/17 04:00 60 03/22/17 04:00 90 03/22/17 02:00 96 03/22/17 01:15 98 40 03/22/17 00:00 96 03/22/17 00:00 97.7 96 16 133/89 (104) 98 03/22/17 00:00 60 03/21/17 22:00 90 03/21/17 20:00 60 03/21/17 20:00 108 03/21/17 20:00 98.5 108 18 124/84 (97) 94 03/21/17 19:28 94 40 03/21/17 19:00 94 Mechanical Ventilator 40 03/21/17 18:00 94 03/21/17 17:12 93 T-piece 6.00 45 03/21/17 16:50 97 T-piece 6.00 03/21/17 16:00 60 03/21/17 16:00 87 03/21/17 14:00 97 03/21/17 12:52 100 40 03/21/17 12:00 97.8 91 14 137/88 (104) 98 03/21/17 12:00 76 03/21/17 12:00 60 03/21/17 10:00 95 03/21/17 08:47 100 40 I/O 03/21/17 03/21/17 03/21/17 03/22/17 03/22/17 03/22/17 07:00 15:00 23:00 07:00 15:00 23:00 Intake Total 282 ml 883 ml Output Total 1650 ml 1700 ml Balance -1368 ml -817 ml IV Total 282 ml Tube Feeding 883 ml Output Urine Total 1550 ml 1700 ml Gastric Drainage Total 100 ml # Bowel Movements 0 0 Result Diagram: 03/21/17 0414 03/22/17 0418 Objective Remarks aweake alert follwing commands all 4 ext and shows me thumbs up Assessment and Plan Assessment and Plan imp he looks much better neurowise and on trach now oob when able and PT Raul Kingston MD Mar 22, 2017 08:37
[2017-03-22] MEDS: SODIUM CHLORIDE 0.9% FLUSH 10 ML FLUSH IV FLUSH SCH ×2 (09:00→20:53)
[2017-03-22] MEDS: TIOTROPIUM BROMIDE 18 MCG INH INH SCH (09:00)
[2017-03-22] MEDS: BENEPROTEIN POWDER 1 PACK G-TUBE SCH ×4 (09:00→17:41)
[2017-03-22] MEDS: BUDESONIDE-FORMOTEROL 160/4.5 MCG INHALER INH SCH ×2 (09:00→21:00)
--- NOTE | 2017-03-22 09:01 | HHI.FPPN ---
Subjective Remarks Patient is awake and alert this morning. His eyes are open and he is tracking me with his eyes. He follows my commands to show me a thumbs up and to grab my fingers and to let go. Per nurse report, patient tolerating tube feeds well. Patient is also communicating by nodding and shaking his head. He reports that he does not know his name, where he is, what the date is, why he is here. I informed him of all these things. Patient also reports that he does not want to be trached and on the vent. He does not want to be full code. He wants to be DNR. We will further discuss with palliative care and check scaler before changing CODE STATUS. (Anderson Matt MD R2) Objective Vitals Vital Signs Date Time Temp Pulse Resp B/P (MAP) Pulse Ox O2 Delivery O2 Flow Rate FiO2 03/22/17 08:13 40 03/22/17 07:30 97 40 03/22/17 07:00 95 Mechanical Ventilator 40 03/22/17 06:00 91 03/22/17 04:24 95 40 03/22/17 04:00 98.8 90 16 137/87 (104) 99 03/22/17 04:00 60 03/22/17 04:00 90 03/22/17 02:00 96 03/22/17 01:15 98 40 03/22/17 00:00 96 03/22/17 00:00 97.7 96 16 133/89 (104) 98 03/22/17 00:00 60 03/21/17 22:00 90 03/21/17 20:00 60 03/21/17 20:00 108 03/21/17 20:00 98.5 108 18 124/84 (97) 94 03/21/17 19:28 94 40 03/21/17 19:00 94 Mechanical Ventilator 40 03/21/17 18:00 94 03/21/17 17:12 93 T-piece 6.00 45 03/21/17 16:50 97 T-piece 6.00 03/21/17 16:00 60 03/21/17 16:00 87 03/21/17 14:00 97 03/21/17 12:52 100 40 03/21/17 12:00 97.8 91 14 137/88 (104) 98 03/21/17 12:00 76 03/21/17 12:00 60 03/21/17 10:00 95 I/O 03/21/17 03/21/17 03/21/17 03/22/17 03/22/17 03/22/17 07:00 15:00 23:00 07:00 15:00 23:00 Intake Total 282 ml 883 ml Output Total 1650 ml 1700 ml Balance -1368 ml -817 ml IV Total 282 ml Tube Feeding 883 ml Output Urine Total 1550 ml 1700 ml Gastric Drainage Total 100 ml # Bowel Movements 0 0 (Anderson Matt MD R2) Result Diagram: 03/21/17 0414 03/22/17 0418 Imaging Last Impressions Chest X-Ray 03/21/17 0600 Signed Impressions: Service Date/Time: Tuesday, March 21, 2017 03:55 - CONCLUSION: 1. Improving basilar airspace disease. Small left effusion. Tracheostomy and nasogastric tube unchanged. Ruy Hussein MD Abdomen X-Ray 03/13/17 0000 Signed Impressions: Service Date/Time: Monday, March 13, 2017 13:04 - CONCLUSION: 1. The tip of the NG tube is just through the GE junction and into the stomach. Cliff Mack MD Brain MRI 03/10/17 0000 Signed Impressions: Service Date/Time: Friday, March 10, 2017 15:01 - CONCLUSION: No acute infarct or other acute intracranial abnormality. Atrophy and chronic white matter changes are again noted. Kilo Rowell MD Chest CT 03/09/17 0000 Signed Impressions: Service Date/Time: Thursday, March 09, 2017 04:59 - CONCLUSION: 1. Marked volume loss in the left hemithorax with near-complete collapse of the left lower lobe/lingula. There is still some aeration in the left upper lung. Some of this is due to the moderate sized left-sided effusion although there may be element of airway obstruction/mucus plugging as well. 2. Small right-sided effusion with become atelectatic changes in the right base. 3. Patchy biapical airspace disease.. Tone Henry MD Shoulder X-Ray 03/05/17 0000 Signed Impressions: Service Date/Time: Sunday, March 05, 2017 20:57 - CONCLUSION: No acute disease. Rick Sanford MD Abdomen/Pelvis CT 03/04/17 0000 Signed Impressions: Service Date/Time: Saturday, March 04, 2017 10:31 - CONCLUSION: 1. There is no hydronephrosis or renal abnormality to explain the renal failure. However, there is subtle high density stranding along the medial and upper pole of the right kidney. Suggest followup CT to assess for change. 2. Abnormal mass arising from or abutting the spleen in the left upper quadrant measuring up to 7.5 cm. It contains a small amount of calcification. Suggest correlating with any prior imaging study that could offer additional characterization. If none are available suggest followup imaging to confirm stability and consider contrast enhanced CT or MRI for further characterization when patient condition permits. 3. Small bilateral pleural effusions, left larger than right, with associated compressive atelectasis. 4. Severe coronary artery calcification. Kilo Coulter MD Renal Ultrasound 02/27/17 0000 Signed Impressions: Service Date/Time: Monday, February 27, 2017 20:36 - CONCLUSION: 1. Mildly dilated left renal collecting system. Kidneys normal in size. Trace free fluid. Ruy Hussein MD Head CT 02/23/17 0000 Signed Impressions: Service Date/Time: Thursday, February 23, 2017 07:38 - CONCLUSION: No significant change has occurred. Maximus Pavon MD Objective Remarks GENERAL: male, lying in bed on vent to trach and eyes open and tracking, and following commands. Patient leaning slightly to his left. SKIN: Bilateral upper extremities with multiple well-healing scabs on right arm. HEENT: On trach to vent. Pupils grossly symmetrical and reactive. Sclera injected bilaterally. CARDIOVASCULAR: RRR without appreciable murmurs. grossly normal perfusion. No edema RESPIRATORY: normal rate; decreased breath sounds on the left. without wheezing GASTROINTESTINAL: Abdomen soft, non-distended, non-tender MUSCULOSKELETAL: no cyanosis, no edema. No calf tenderness. NEURO: Patient is awake and alert this morning. His eyes are open and he is tracking me with his eyes. He follows my commands to show me a thumbs up and to grab my fingers and to let go. He is disoriented to person, place, time, situation. Procedures * 03/20/17 -Bronchoscopy & Tracheostomy placement * 03/20/17 -Reintubation * 03/19/17 -Extubated * 03/18/17 -Bronchoscopy * 03/15/17 -bronchoscopy * 03/12/17 -reintubated * 03/12/17 -medical extubated * 03/09/17 -endotracheal Intubation * 03/09/17 -Bronchoscopy (Anderson Matt MD R2) Date of Insertion: Feb 23, 2017 (Anderson Matt MD R2) A/P Assessment and Plan 57-year-old white male with past medical history of alcohol withdrawal presented to the ED with severe hypoglycemia and altered mental status; patient has had progressively worsening renal function and is currently being followed for renal failure and continued altered mental status. Pt recently required intubation and sedation for respiratory distress and imaging with opacification of the left lung concerning for left lung collapse in the context of mucus plugging, which was removed on 03/09 and again on 03/18 and again on 03/20. Patient has been reintubated multiple times. Tracheostomy on 03/20. Discharge Planning Pending workup for declining renal function, AMS, weaning off vent. Working on plan of care with sample case porter and palliative care pediatric social worker. While patient was briefly awake and alert, the check scaler clarified his code status. He is full code. We may need to change his CODE STATUS again today. (Anderson Matt MD R2) Attending Attestation Pt. examined and case discussed with resident physicians I have read the above note and agree with the assessment/plan as discussed with me I was involved in all medical decision making for this patient Aris Martinez MD (Aris Martinez MD) Problem List: (1) Altered mental status ICD Codes: R41.82 - Altered mental status, unspecified Status: Acute Plan: Patient on vent to trach. Mostly responsive today; only responsive to pain. Patient was effectively communicating his wishes to the check scaler when he was awake and alert. Thus, patient is full code and he consented to tracheostomy, which was done on 03/20/17. However, patient seems to be changing his mind today. We'll discuss with care team before changing his CODE STATUS. -Kitchen Cleaner consulted and appreciated- intubated and satting well -wean off sedatives -IV solumedrol q12h -CPT -Continue treatment of chronic alcoholism -Continue PO multivitamin -PO thiamine -Occupational therapy recommended OT at rehabilitation (PT recommended OT). -PT, OT, ST -Continue tube feeds at 55ml/hr and 1L of free water per dietary; Seizure precautions Impression: AMS initially suspected secondary to alcoholism or polysubstance abuse; persistent. could be anoxic brain injury from hypoglycemia (2) Respiratory disease ICD Codes: J98.9 - Respiratory disorder, unspecified Status: Acute Plan: Patient re-intubated on 03/20/17. Decreased breath sounds on left today. -Chest x-ray to look for lung collapse, likely in the context of mucous plugging -Kitchen Cleaner consulted and appreciated- intubated and satting well -wean off sedatives -IV solumedrol q12h -suction tracheostomy for removal of mucous plug today. -Continue breathing treatments, O2 per CC/respiratory therapy -Mucomyst -CPT -Bronchial washing cultures negative. Impression: Encephalopathic with likely DIRECTOR GIFT damage from polysubstance abuse and/ or anoxic brain injury from hypoglycemia. Thus, patient may be unable to protect airway. Patient with repeated mucous plugging and lung collapses on imaging. Thick secretions likely due to undiagnosed COPD. (3) SAQIB (acute kidney injury) ICD Codes: N17.9 - Acute kidney failure, unspecified Status: Acute Plan: -Nephrology consulted: Diagnosed with Acute renal failure acute tubular necrosis with drug use, Non oliguric, creatinine is stable. -Monitor BMP -Bumex 1mg q12h (4) Hypertension ICD Codes: I10 - Essential (primary) hypertension Status: Chronic Plan: Impression: BPs stable since 03/19 -Continue Amlodipine 10mg PO daily -Hold Hydralazine 25 mg q12h since hypotension -Hydralazine 20 mg IV push every hour when necessary for blood pressure over 160 /90 -Labetalol 20 mg IV push every 4 hours when necessary for systolic blood pressure over 160 -Metoprolol 25 mg q12h -Clonidine 0.1 mg q6h PRN For SBP >/= 170, DBP >/= 100 -Maintain MAP > 65 mmHG -Bumex as above (5) FEN Status: Acute Plan: Fluids: none Electrolytes: Monitor and replace per protocol Nutrition: Tube feeds with free water GI PPx: Lansoprazole 30 mg NG/day VTE prophylaxis: Heparin 5000 units every 12 hours and SCDs (Anderson Matt MD R2) Problem Qualifiers (1) Altered mental status: Qualified Codes: R41.0 - Disorientation, unspecified (2) Hypertension: Qualified Codes: I10 - Essential (primary) hypertension Anderson Matt MD R2 Mar 22, 2017 09:01 Aris Martinez MD Mar 22, 2017 16:36
[2017-03-22] MEDS: LANSOPRAZOLE SOLUTAB 30 MG TAB NG SCH (09:13)
[2017-03-22] MEDS: methylPREDNISolone SOD SUCC 125 MG/2 ML VIAL IV PUSH SCH ×2 (09:13→20:53)
[2017-03-22] MEDS: THIAMINE HCL 100 MG TAB PO SCH (09:13)
[2017-03-22] MEDS: MULTIVITAMIN TAB PO SCH (09:13)
[2017-03-22] MEDS: BUMETANIDE INJ 1 MG/4 ML VIAL IV PUSH SCH ×2 (09:13→17:46)
[2017-03-22] MEDS: METOPROLOL TARTRATE 25 MG TAB PO SCH ×2 (09:13→20:53)
--- NOTE | 2017-03-22 10:03 | RADRPT ---
EXAM DATE/TIME: 03/22/2017 09:29 [facility] COMPARISON: CHEST SINGLE AP, March 21, 2017, 3:55. INDICATIONS : Short of breath. MEDICAL HISTORY : Hepatitis C. Myocardial infarction. Arthritis. Seizures. Depression. SURGICAL HISTORY : None. ENCOUNTER: Subsequent ACUITY: 3 weeks PAIN SCORE: Non-responsive. LOCATION: Bilateral chest FINDINGS: Tracheostomy is present in good position. Nasogastric tube descends in the stomach. Hazy bilateral pe rihilar and left base parenchymal opacity persists. Accounting for significant rotation, cardiac cont ours appear grossly stable. CONCLUSION: Stable chest appearance. Kilo Maravilla MD on March 22, 2017 at 10:01 Board Certified Radiologist. This report was verified electronically.
--- NOTE | 2017-03-22 11:08 | HHI.CCPN ---
Subjective Remarks/Hospital Course This is a 57-year-old male that was found down and admitted to this hospital 02/23/2017. Urine tox screen revealed patient was positive for benzodiazepines and cocaine at that time. Since admission the patient has been on a [facility] protocol, neurology has been consulted Dr. Wayne, with continued supportive care. Over the last 48 hours the patient was noted to have elevation in his creatinine with a significant decrease in urine output acute renal failure nephrology was consulted the patient continues on gentle diuresis and received 80 mg of Lasix IV this afternoon and is currently on sodium bicarbonate infusion at 110 cc/an hour. Due to the patient's respiratory insufficiency, and altered mental status concern for possible continued respiratory decompensation the patient was transferred to the ICU, and critical care was consulted for management. Upon entering the patient's room the patient was noted to be lethargic having received 4 mg of Ativan in the last 4 hours, but opens eyes to sternal rub. The patient was noted to have O2 saturation of 95% on O2 via nasal cannula at 5 L with no accessory respiratory efforts. Stat ABG was ordered pending, to rule out CO2 narcosis. Since admission to ICU the patient was noted to diuresis of 700 cc. 03/03: Afebrile. The patient did not receive any Ativan since 3 PM on 03/02/17. The patient rested well overnight, eventually waking and responding. This a.m. the patient's noted to be sitting up in bed, alert and responsive. Librium has been added to medication regimen for alcohol withdrawal. Noted to be oriented to date of unable to provide name or place at this time. Essential tremors, fine tremors noted. The patient severely weak and unable to feed self without assistance. The patient's diet was advanced to regular diet, tolerating well, 100% consumption. PO meds were held since admission to ICU secondary to lethargy, all by mouth meds resumed this a.m.. The patient currently is compliant following commands, inappropriate responses, with noted incomprehensible words, language at times. Patient is noted to be very weak. Nasal cannula O2 has been weaned down to approximately 3 L, the patient appears in no respiratory distress. Subjective: 03/09: Reconsulted secondary acute respiratory failure. Chest x-ray earlier in the morning revealed collapse versus large pleural effusion left side. Patient oxygen requirements had increased from 4 L to a nonrebreather mask. CT thorax revealed likely mucous plugging/collapsed lung left side. Small to moderate left pleural effusion. Patient was combative upon arrival ICU in place in soft restraints. Due to mental status/mucous plugging patient was electively intubated using 20 mg etomidate and 50 mg, rocuronium. Patient was bronched which revealed thick white mucous plugging in the left and right mainstem. These were lavaged to left upper lobe/lingula and left lower lobe, right upper middle and lower lobes. Samples were sent see orders. Currently sedated with propofol and fentanyl drips. 03/10: Tonic seizures today when propofol stopped. Seizures ceased with propofol bolus. Left pneumonia persists but improved aeration after bronch . 03/11: Gas exchange acceptable. Continues to have tonic "seizures" when propofol is lightened. EEG 03/10 states no seizures but we will repeat EEG again today with stimulation and off propofol. Can't extubate until this "seizure" activity is resolved. Vomited tube feeds, will reduce and add reglan. 03/12: Off sedation tolerating CPAP even though intermittently apneic. Appears to follows commands but weekly on the upper extremity. No obvious seizures. EEG negative for seizure 03/11/17. Creatinine slightly improved to 2.8 from 3 03/13: Failed extubation on 03/12. Currently sedated, orally intubated on mechanical ventilation. Has thick copious respiratory secretions per DANCE HALL HOSTESS. 03/14: Remains sedated, orally intubated on mechanical ventilation. Feeling C Pap trials. Not following commands on lightening sedation. 03/15: Remains intubated encephalopathy. Left lower lobe infiltrate again indicating probable mucous plugging/collapse. Palliative care meeting with family today. I recommend tracheostomy and PEG tube placement. D/W palliative care team 03/16: Off sedation since yesterday 5PM. Eyes open spontaneously. Following commands bilateral upper extremity, he squeezes with both hands. Discussed with Dr. Kingston. Will continue weaning attempt with plan for wean to extubate. s/p bronchoscopy yesterday, with re expansion of L lung. Has moderate secretions. I have updated Lore Darling (sister) about improvement in neuro exam. See below 03/17: Tolerated CPAP 7 hours yesterday. Currently on CPAP. Lethargic/somnolent but follows commands, gives thumbs up on bilateral UE. Creat stable. UO 750 ml in 24 hours. BAL negative to date 03/18: Remains intubated off sedation. There is further improvement in neuro exam, able to move both feet to command, gives thumbs up on both upper extremities. Chest x-ray shows complete white out of the left lung field. We' ll plan for emergency bronchoscopy 03/19: Extubated yesterday, overnight appeared to be having mucus plugging involving L lung. But currently patient is saturating well. He somnolent but wakes up easily and nodding appropriately and following commands, in the bilateral upper extremity 03/20: Today around 5.30 AM, patient acutely became hypoxemic with diminished breath sounds on the left lung field. Placed on nonrebreather clinical exam was consistent with left lower lobe mucus plugging according to Dr. Chadwick. With aggressive suctioning and Mucomyst and DuoNeb breathing treatments, patient 's air entry and saturation improved slightly. Currently on 100% nonrebreather oxygen saturation 90-92% tachypneic but not in severe distress. I discussed tracheostomy with the patient, witnessed by RN Aniket and Dixie. I explained to him that If he gets reintubated he will need tracheostomy due to frequent mucus plugging, with left lung collapse. Patient understands tracheostomy procedure, and wants tracheostomy done in case of reintubation. 03/21: Re intubated yesterday for LLL collapse. Tracheostomy performed yesterday afternoon. Difficult bronchoscopy with therapeutic bronchoscope and multiple attempts to remove the mucus plugging because of the very thick tenacious nature of the plugs. Continue breathing treatments Mucomyst for now. Chest percussion with speciality bed. 03/22: The patient tolerated trach collar trials approximately 1 hour yesterday. The patient continues to have thick secretions, aggressive pulmonary toileting continues with chest percussion. Today the patient indicated that he wanted to be placed back on DNR status. Discussion with family medicine primary service team for cognitive evaluation by psychiatry to assess competency in making this decision. Will continue care as planned, overweight recommendations from psychiatry and palliative medicine. Will hold medication for agitation until assessment is performed, and continue supportive care. Objective Vital Signs Date Time Temp Pulse Resp B/P (MAP) Pulse Ox O2 Delivery O2 Flow Rate FiO2 03/22/17 10:00 71 03/22/17 08:13 40 03/22/17 08:00 98.5 20 131/83 (99) 98 03/22/17 07:00 Mechanical Ventilator 03/21/17 17:12 6.00 Intake and Output 03/22/17 03/22/17 03/23/17 08:00 16:00 00:00 Intake Total 883 ml Output Total 1700 ml Balance -817 ml Result Diagram: 03/21/17 0414 03/22/17 0418 Imaging Last Impressions Shoulder X-Ray 03/05/17 0000 Signed Impressions: Service Date/Time: Sunday, March 05, 2017 20:57 - CONCLUSION: No acute disease. Rick Sanford MD Abdomen/Pelvis CT 03/04/17 0000 Signed Impressions: Service Date/Time: Saturday, March 04, 2017 10:31 - CONCLUSION: 1. There is no hydronephrosis or renal abnormality to explain the renal failure. However, there is subtle high density stranding along the medial and upper pole of the right kidney. Suggest followup CT to assess for change. 2. Abnormal mass arising from or abutting the spleen in the left upper quadrant measuring up to 7.5 cm. It contains a small amount of calcification. Suggest correlating with any prior imaging study that could offer additional characterization. If none are available suggest followup imaging to confirm stability and consider contrast enhanced CT or MRI for further characterization when patient condition permits. 3. Small bilateral pleural effusions, left larger than right, with associated compressive atelectasis. 4. Severe coronary artery calcification. Kilo Coulter MD Chest X-Ray 03/02/17 0000 Signed Impressions: Service Date/Time: Thursday, March 02, 2017 08:18 - CONCLUSION: Increasing consolidative changes left base. Nasir Mack MD FACR Renal Ultrasound 02/27/17 0000 Signed Impressions: Service Date/Time: Monday, February 27, 2017 20:36 - CONCLUSION: 1. Mildly dilated left renal collecting system. Kidneys normal in size. Trace free fluid. Ruy Hussein MD Brain MRI 02/25/17 0000 Signed Impressions: Service Date/Time: Saturday, February 25, 2017 12:37 - CONCLUSION: Atrophy, periventricular changes without evidence for acute infarction. Nasir Mack MD FACR Head CT 02/23/17 0000 Signed Impressions: Service Date/Time: Thursday, February 23, 2017 07:38 - CONCLUSION: No significant change has occurred. Maximus Pavon MD Objective Remarks GENERAL: 57-year-old male, awake alert currently on CPAP SKIN: Warm and dry. HEAD: Atraumatic. Normocephalic. EYES: Pupils equal and round around 2 mm bilaterally and reactive. No scleral icterus. No injection or drainage. ENT: No nasal bleeding or discharge. Oral cavity is moist NECK: Trachea midline. CARDIOVASCULAR: RRR, tachycardic. S1, S2 no S4. Without murmur. No JVD. RESPIRATORY: Diminished breath sounds left lung thomas. Few coarse rhonchi. Bilateral course crackles GASTROINTESTINAL: Abdomen soft, non-tender, nondistended. Active bowel sounds appreciated MUSCULOSKELETAL: Extremities without without significant peripheral edema. No obvious deformities. Right forearm dressing NEUROLOGICAL: Awake alert oriented to person place and time, nodding appropriately to questions, and conversant. Follows commands bilateral upper and lower extremities. Moves extremities x 4 spontaneously. patient has periods of agitation, attempting to remove NG tube, possibly tracheostomy Urinary Catheter: Yes Assessment to: Remove Date of Insertion: Feb 23, 2017 A/P Assessment and Plan Neuro/Psych: Encephalopathy/Delirium most likely metabolic Admission with EtOH withdrawal - likely completed Polysubstance abuse including cocaine and benzodiazepines Polyneuropathy of critical illness Improved neuro exam. Was following commands, oriented to person place and time before sedation for intubation and trach 03/20/17 Wean propofol and fentanyl as tolerated Patient is followed by Dr. Rogel neurology. EEG's reveal moderate encephalopathy no epileptiform activity. MRI negative for acute findings Previously on Seroquel 25 mg at night DCd and Haldol when necessary- discontinued 03/15/17 Librium DCd 03/15/17 Seizure precautions ?Seizures 03/10-EEG negative for seizures. Continue thiamine 100 mg daily Will hold all sedative medications, continue supportive care when patients agitated. Plan for cognitive evaluation by psychiatry to assess competency in making decisions-patient has requested now to be placed back on DNR status Respiratory: Acute hypoxemic respiratory failure secondary to aspiration Recurrent left lower lobe collapse/mucus plugging Complete opacification of left lung field due to mucus plugging 03/18/17 s/p tracheostomy 03/20/17 Status post extubation after therapeutic bronchoscopy 03/18/17 and reintubated for left lower lobe collapse on 03/20/17 s/p Tracheostomy 03/21/17. Difficult bronchoscopy with therapeutic scope and multiple attempts to remove very thick mucus plugs from left main bronchus. Continue breathing treatments Mucomyst for now. Chest percussion with speciality bed Patient wants to continue full code and also consented for tracheostomy if he gets reintubated. Witnessed by RNs Aniket and Dixie on 03/20/17 IV Solumedrol 60 q12 03/17/17. Was on Symbicort and Spiriva CT thorax from 03/09 revealed collapse left upper/lingula lobes with significant secretions left main bronchus. s/p bronch Improved aeration 03/10 Cardiovascular: Hypertension Fluid overload Amlodipine 10 mg daily, clonidine 0.1 mg 3 times a day and metoprolol 5 mg by mouth twice a day for hypertension, with holding parameters Use when necessary labetalol and hydralazine when patient is nothing by mouth Maintain MAP > 65 mmHG Bumex as below Renal: Acute kidney injury secondary to ATN Nephrology following Dr. Martinez. Creat 2.9. UO 2.5 L in 24 hours Accurate I's and O's, Monitor urine output. Continue Hall catheter due to worsening renal failure Start scheduled Bumex 2 mg now and 1 mg every 12 03/20/17 No signs of hydronephrosis on renal imaging,Urine eosinophils negative FEN/GI: Mild protein calorie malnutrition Hyperkalemia-resolved Hep C Continue tube feeds, hold off PEG tube as patient may be able to take PO diet once off vent Lansoprazole for GI prophylaxis Docusate sodium senna 1 tablet twice a day for bowel regimen. Last BM 03/20-bowel regimen, when necessary meds given Heme/ID: Macro Anemia Thrombocytopenia Probable Pneumonia F/U BAL 03/15-neg to date On previous cultures in BAL have been negative except 02/23 coag negative staph which is contamination Cefepime discontinued 03/19/17, DCd Flagyl and azithromycin 03/09/17-03/15/17 Endocrine: Sliding-scale insulin to maintain euglycemia/low regimen with NovoLog every 6 hours Prophylaxis: GI Prophylaxis Lansoprazole DVT Prophylaxis SCDs/heparin subcutaneous Lines: Peripheral IVs providing adequate access at this time. Palliative care team following to assist with deciding goals of therapy Overall impression: Critically ill with acute respiratory deterioration from recurrent mucus plugging and hypoxemic respiratory failure. Intubated and trached 03/20/17 03/15/17: I discussed and updated Lore Darling (sister) over the phone: . I explained to her improvement in neurological status. She is agreeable to continued care since there is improvement, and she does not want any other invasive procedures at this time and if there is any further clinical deterioration she wants to pursue comfort measures. 03/17/17: I discussed with Dr. Anderson Matt, family medicine service-patient' s change requests changing to DNR status again, plan for psychiatric cognitive evaluation, if possible to assess competency of the patient. Discussed with DANCE HALL HOSTESS at bedside,and DR. Matt This patient remains critically ill with one or more organ systems which are or may become a threat to life. I have spent in excess of 30 minutes discontinuously in the care and management of this patient. This time is exclusive of procedures, and includes, but is not limited to, evaluation of the patient, review of the medical record, discussions with family, consultants, nursing staff, or respiratory therapy, and documentation in the medical record. Physician Edie De La Fuente MD Mar 22, 2017 11:08
[2017-03-22] MEDS: HEPARIN SODIUM - SQ 10,000 UNITS/ML VIAL SQ SCH (12:03)
[2017-03-22 13:52] LABS: MYELOPEROXIDASE LESS THAN 1.0 AI (<1.0); PROTEINASE-3 LESS THAN 1.0 AI (<1.0)
--- NOTE | 2017-03-22 14:41 | HHI.NPPN ---
Subjective History of Present Illness 57-year-old male with the alcohol withdrawal, altered mental status, acute renal failure Additional Remarks Patient re intubated again s/p Trach on trach collar O2 Objective Data Data Vital Signs Date Time Temp Pulse Resp B/P (MAP) Pulse Ox O2 Delivery O2 Flow Rate FiO2 03/22/17 14:00 98 03/22/17 12:00 85 03/22/17 12:00 98.5 89 26 152/88 (109) 98 03/22/17 12:00 60 03/22/17 11:39 95 T-piece 50 03/22/17 11:17 98 40 03/22/17 10:00 71 03/22/17 08:13 40 03/22/17 08:00 98.5 69 20 131/83 (99) 98 03/22/17 08:00 60 03/22/17 08:00 69 03/22/17 07:30 97 40 03/22/17 07:00 95 Mechanical Ventilator 40 03/22/17 06:00 91 03/22/17 04:24 95 40 03/22/17 04:00 98.8 90 16 137/87 (104) 99 03/22/17 04:00 60 03/22/17 04:00 90 03/22/17 02:00 96 03/22/17 01:15 98 40 03/22/17 00:00 96 03/22/17 00:00 97.7 96 16 133/89 (104) 98 03/22/17 00:00 60 03/21/17 22:00 90 03/21/17 20:00 60 03/21/17 20:00 108 03/21/17 20:00 98.5 108 18 124/84 (97) 94 03/21/17 19:28 94 40 03/21/17 19:00 94 Mechanical Ventilator 40 03/21/17 18:00 94 03/21/17 17:12 93 T-piece 6.00 45 03/21/17 16:50 97 T-piece 6.00 03/21/17 16:00 60 03/21/17 16:00 87 -: 03/21/17 0414 03/22/17 0418 Physical Exam General Appearance: Malnourished Eyes Eye Exam: Pupils Equal Throat Throat Exam: Oral Mucosa [place] & Moist Neck Neck Exam: Neck Supple Pulmonary Resp Exam: Crackles, Rhonchi, Decreased Bases, Diminished Breath Sounds Cardiology CV Exam: Regular, Normal Sinus Rhythm Gastrointestinal/Abdomen GI Exam: Soft, Non-Tender, Bowel Sounds Present Musculoskeletal MS Remarks left shoulder sub laxation ? dislocated Extremeties Extremities Exam: Trace Edema Neurologic Neuro Exam: Obtunded Assessment/Plan Problem List: (1) SAQIB (acute kidney injury) ICD Codes: N17.9 - Acute kidney failure, unspecified Status: Acute Plan: Acute renal failure acute tubular necrosis with drug use Non oliguric, creatinine is at 2.8 s/p Trach Hepatitis C positive Ammonia not high s/p bronchoscopy with removal of mucous plug self extubated, multiple re intubations, now going to have Trach CT scan abdominal reviewed Subtle high density stranding medial/upper right kidney. Abnormal mass arising from/abutting spleen LUQ measuring up to 7.5 cm with small amount of calcification. FIDEL is positive 1:80, low titre. Cr 2.8 ANCA negative patient very weak will wait to see if feels better Trach collar O2 (2) Alcohol withdrawal ICD Codes: F10.239 - Alcohol dependence with withdrawal, unspecified Status: Chronic Plan: Patient remained in altered mental status (3) Hypertension ICD Codes: I10 - Essential (primary) hypertension Status: Chronic Plan: Patient's blood pressure was labile continue to monitor Problem Qualifiers (1) Alcohol withdrawal: Qualified Codes: F10.231 - Alcohol dependence with withdrawal delirium (2) Hypertension: Qualified Codes: I10 - Essential (primary) hypertension Daryl Martinez MD Mar 22, 2017 14:41
[2017-03-23] VITALS (17 sets, daily range): BP systolic 135–164; BP diastolic 85–98; PULSE 72–116; RESP 16–26; TEMP 98.6–99; O2SAT 98–100
[2017-03-23] MEDS: hydrALAZINE HCL 20 MG/ML VIAL IV PUSH PRN (00:06)
[2017-03-23] MEDS: HEPARIN SODIUM - SQ 10,000 UNITS/ML VIAL SQ SCH ×3 (00:06→23:05)
[2017-03-23] MEDS: RESP: ALBUTEROL 2.5 MG/IPRATROPIUM 0.5 MG NEB (SCH) NEB ×5 (03:53→21:34)
[2017-03-23] MEDS: RESP: ACETYLCYSTEINE 20% 30 ML NEB NEB SCH ×2 (03:54→07:18)
[2017-03-23 04:13] LABS: BICARBONATE 30.4 MEQ/L (21.0-32.0); POTASSIUM 3.9 MEQ/L (3.5-5.1)
[2017-03-23] MEDS: FREE WATER G-TUBE SCH ×3 (06:00→22:00)
[2017-03-23] MEDS: ARTIFICIAL TEARS OPTH SOLN 15 ML BTL EACH EYE SCH ×3 (06:00→22:00)
--- NOTE | 2017-03-23 06:25 | RADRPT ---
EXAM DATE/TIME: 03/23/2017 05:11 [facility] COMPARISON: CHEST SINGLE AP, March 22, 2017, 9:29. INDICATIONS : Respiratory failure. MEDICAL HISTORY : Hepatitis C. Myocardial infarction. Arthritis. Seizures. Depression. SURGICAL HISTORY : None. ENCOUNTER: Subsequent ACUITY: 3 weeks PAIN SCORE: Non-responsive. LOCATION: Bilateral chest FINDINGS: A single view of the chest demonstrates basilar airspace disease, left greater than right with probab le left effusion. Tracheostomy in good position. NG tip in stomach. No pneumothorax. CONCLUSION: 1. Basilar airspace disease, left greater than right. No pneumothorax. Ruy Hussein MD on March 23, 2017 at 6:22 Board Certified Radiologist. This report was verified electronically.
[2017-03-23] MEDS: TIOTROPIUM BROMIDE 18 MCG INH INH SCH (07:35)
[2017-03-23] MEDS: BUDESONIDE-FORMOTEROL 160/4.5 MCG INHALER INH SCH ×2 (07:35→21:00)
[2017-03-23] MEDS: SODIUM CHLORIDE 0.9% FLUSH 10 ML FLUSH IV FLUSH SCH ×2 (07:36→21:00)
[2017-03-23] MEDS: CHLORHEXIDINE 0.12% (ORAL KIT) 15 ML CUP MT SCH ×4 (07:46→20:00)
[2017-03-23] MEDS: methylPREDNISolone SOD SUCC 125 MG/2 ML VIAL IV PUSH SCH ×2 (07:47→21:39)
[2017-03-23] MEDS: BUMETANIDE INJ 1 MG/4 ML VIAL IV PUSH SCH ×2 (07:47→18:03)
[2017-03-23] MEDS: METOPROLOL TARTRATE 25 MG TAB PO SCH ×2 (07:48→21:00)
[2017-03-23] MEDS: MULTIVITAMIN TAB PO SCH (07:48)
[2017-03-23] MEDS: THIAMINE HCL 100 MG TAB PO SCH (07:48)
[2017-03-23] MEDS: LANSOPRAZOLE SOLUTAB 30 MG TAB NG SCH (07:48)
[2017-03-23] MEDS: BENEPROTEIN POWDER 1 PACK G-TUBE SCH ×3 (07:48→18:00)
--- NOTE | 2017-03-23 08:42 | HHI.FPPN ---
Subjective Remarks Patient seen and examined bedside. Patient seems to be more alert today; moving his arms to the limits of his restraints and mouthing words to try to communicate with us. Patient communicates the word help and communicates the word water. Patient does follow movement in the room with eye contact and gestures that he would like the trach tube to be removed. (Bonnie Pan MD R2) Objective Vitals Vital Signs Date Time Temp Pulse Resp B/P (MAP) Pulse Ox O2 Delivery O2 Flow Rate FiO2 03/23/17 07:19 40 03/23/17 07:19 98 40 03/23/17 07:00 100 T-Piece 40 03/23/17 06:00 82 03/23/17 04:02 100 40 03/23/17 04:00 76 03/23/17 04:00 98.9 76 16 139/85 (103) 100 03/23/17 04:00 40 03/23/17 02:00 72 03/23/17 01:19 100 40 03/23/17 00:00 75 03/23/17 00:00 40 03/23/17 00:00 99.0 75 16 164/98 (120) 99 03/22/17 23:32 100 40 03/22/17 22:00 90 03/22/17 20:00 80 03/22/17 20:00 40 03/22/17 20:00 99.9 80 16 149/93 (111) 99 03/22/17 19:33 100 40 03/22/17 19:00 Mechanical Ventilator 03/22/17 18:00 81 03/22/17 16:00 97.9 71 16 148/95 (112) 100 03/22/17 16:00 71 03/22/17 16:00 60 03/22/17 15:34 97 40 03/22/17 14:00 98 03/22/17 12:00 85 03/22/17 12:00 98.5 89 26 152/88 (109) 98 03/22/17 12:00 60 03/22/17 11:39 95 T-piece 50 03/22/17 11:17 98 40 03/22/17 10:00 71 I/O 9/28/17 9/28/17 9/28/17 9/29/17 9/29/17 9/29/17 07:00 15:00 23:00 07:00 15:00 23:00 Intake Total 883 ml 1003 ml 1007 ml Output Total 1700 ml 1300 ml 1000 ml Balance -817 ml -297 ml 7 ml Tube Feeding 883 ml 663 ml 667 ml Other 340 ml 340 ml Output Urine Total 1700 ml 1300 ml 1000 ml # Bowel Movements 0 1 2 (Bonnie Pan MD R2) Result Diagram: 03/21/17 0414 03/23/17 0335 Objective Remarks GENERAL: male, lying in bed on vent to trach and eyes open and tracking, and following commands, seems to be trying to tell us something. Patient leaning slightly to his left. SKIN: Bilateral upper extremities with multiple well-healing scabs on right arm. HEENT: On trach to vent. Pupils grossly symmetrical and reactive. Sclera injected bilaterally. CARDIOVASCULAR: RRR without appreciable murmurs. grossly normal perfusion. No edema RESPIRATORY: normal rate; decreased breath sounds on the left, similar to previous exams. without wheezing GASTROINTESTINAL: Abdomen soft, non-distended, non-tender MUSCULOSKELETAL: no cyanosis, no edema. No calf tenderness. NEURO: Patient is awake and alert this morning. His eyes are open and he is tracking me with his eyes. He follows my commands to show me a thumbs up and to grab my fingers and to let go. He is disoriented to person, place, time, situation. Procedures * 03/20/17 -Bronchoscopy & Tracheostomy placement * 03/20/17 -Reintubation * 03/19/17 -Extubated * 03/18/17 -Bronchoscopy * 03/15/17 -bronchoscopy * 03/12/17 -reintubated * 03/12/17 -medical extubated * 03/09/17 -endotracheal Intubation * 03/09/17 -Bronchoscopy (Bonnie Pan MD R2) Date of Insertion: Feb 23, 2017 (Bonnie Pan MD R2) A/P Assessment and Plan 57-year-old white male with past medical history of alcohol withdrawal presented to the ED with severe hypoglycemia and altered mental status; patient has had progressively worsening renal function and is currently being followed for renal failure and continued altered mental status. Pt recently required intubation and sedation for respiratory distress and imaging with opacification of the left lung concerning for left lung collapse in the context of mucus plugging, which was removed on 03/09 and again on 03/18 and again on 03/20. Patient has been reintubated multiple times. Tracheostomy on 03/20. Discharge Planning Pending workup for declining renal function, AMS, weaning off vent. Working on plan of care with machine adjuster leader case trim and palliative care clinical social worker. While patient was briefly awake and alert, the peer tutor clarified his code status. He is full code. We may need to change his CODE STATUS again today. (Bonnie Pan MD R2) Attending Attestation Patient examined and case discussed with resident physicians I have read the above note and agree with the assessment/plan discussed with me I was involved in all medical decision making for this patient Aris aMrtinez M.D. (Aris Martinez MD) Problem List: (1) Altered mental status ICD Codes: R41.82 - Altered mental status, unspecified Status: Acute Plan: Patient on vent to trach. More responsive today than yesterday as mentioned in history of present illness. At this point the patient is still full code and had consented to tracheostomy, which was done on 03/20/17. The patient does seem to be changing his mind day by day and we are pending the psychiatry confirmation of his capacitance. We will follow up with psychiatry and communicate with our team and the peer tutor concerning his status. -wean off sedatives -IV solumedrol q12h -CPT -Continue treatment of chronic alcoholism -Continue PO multivitamin -PO thiamine -Occupational therapy recommended OT at rehabilitation (PT recommended OT). -PT, OT, ST -Continue tube feeds at 55ml/hr and 1L of free water per dietary; Seizure precautions Impression: AMS initially suspected secondary to alcoholism or polysubstance abuse; persistent. could be anoxic brain injury from hypoglycemia (2) Respiratory disease ICD Codes: J98.9 - Respiratory disorder, unspecified Status: Acute Plan: Patient re-intubated on 03/20/17. Tolerated 1 hr on trach collar yesterday. Thick secretions continue, on chest percussion. Decreased breath sounds on left today. -Chest x-ray 03/23 : L basilar atelectasis -Corrections Nurse consulted and appreciated- intubated and satting well -wean off sedatives -IV solumedrol q12h -suction tracheostomy for removal of mucous plug today. -Continue breathing treatments, O2 per CC/respiratory therapy -Mucomyst -CPT -Bronchial washing cultures negative. Impression: Encephalopathic with likely LINING MECH[employer]IC damage from polysubstance abuse and/ or anoxic brain injury from hypoglycemia. Thus, patient may be unable to protect airway. Patient with repeated mucous plugging and lung collapses on imaging. Thick secretions likely due to undiagnosed COPD. (3) SAQIB (acute kidney injury) ICD Codes: N17.9 - Acute kidney failure, unspecified Status: Acute Plan: -Nephrology consulted: Diagnosed with Acute renal failure acute tubular necrosis with drug use, Non oliguric, creatinine is stable. -Monitor BMP -Bumex 1mg q12h (4) Hypertension ICD Codes: I10 - Essential (primary) hypertension Status: Chronic Plan: Impression: BPs stable since 03/19 -Continue Amlodipine 10mg PO daily -Hold Hydralazine 25 mg q12h since hypotension -Hydralazine 20 mg IV push every hour when necessary for blood pressure over 160 /90 -Labetalol 20 mg IV push every 4 hours when necessary for systolic blood pressure over 160 -Metoprolol 25 mg q12h -Clonidine 0.1 mg q6h PRN For SBP >/= 170, DBP >/= 100 -Maintain MAP > 65 mmHG -Bumex as above (5) FEN Status: Acute Plan: Fluids: none Electrolytes: Monitor and replace per protocol Nutrition: Tube feeds with free water, We cannot do swallow study to evaluate for PO until 7 days post-trach (03/27) GI PPx: Lansoprazole 30 mg NG/day VTE prophylaxis: Heparin 5000 units every 12 hours and SCDs (Bonnie Pan MD R2) Problem Qualifiers (1) Altered mental status: Qualified Codes: R41.0 - Disorientation, unspecified (2) Hypertension: Qualified Codes: I10 - Essential (primary) hypertension Bonnie Pan MD R2 Mar 23, 2017 08:42 Aris Martinez MD Mar 23, 2017 11:34
--- NOTE | 2017-03-23 10:19 | EKG ---
Date Performed: 03/23/2017 Time Performed: 03:01:14 PTAGE: 57 years EKG: Sinus rhythm . Extensive T wave changes are nonspecific Borderline ECG PREVIOUS TRACING : 03/02/2017 10.47 Compared to prior tracing no significant change DOCTOR: Raul White Interpretating Date/Time 03/23/2017 10:13:19
--- NOTE | 2017-03-23 11:12 | HHI.CCPN ---
Subjective Remarks/Hospital Course This is a 57-year-old male that was found down and admitted to this hospital 02/23/2017. Urine tox screen revealed patient was positive for benzodiazepines and cocaine at that time. Since admission the patient has been on a [facility] protocol, neurology has been consulted Dr. Wayne, with continued supportive care. Over the last 48 hours the patient was noted to have elevation in his creatinine with a significant decrease in urine output acute renal failure nephrology was consulted the patient continues on gentle diuresis and received 80 mg of Lasix IV this afternoon and is currently on sodium bicarbonate infusion at 110 cc/an hour. Due to the patient's respiratory insufficiency, and altered mental status concern for possible continued respiratory decompensation the patient was transferred to the ICU, and critical care was consulted for management. Upon entering the patient's room the patient was noted to be lethargic having received 4 mg of Ativan in the last 4 hours, but opens eyes to sternal rub. The patient was noted to have O2 saturation of 95% on O2 via nasal cannula at 5 L with no accessory respiratory efforts. Stat ABG was ordered pending, to rule out CO2 narcosis. Since admission to ICU the patient was noted to diuresis of 700 cc. 03/03: Afebrile. The patient did not receive any Ativan since 3 PM on 03/02/17. The patient rested well overnight, eventually waking and responding. This a.m. the patient's noted to be sitting up in bed, alert and responsive. Librium has been added to medication regimen for alcohol withdrawal. Noted to be oriented to date of unable to provide name or place at this time. Essential tremors, fine tremors noted. The patient severely weak and unable to feed self without assistance. The patient's diet was advanced to regular diet, tolerating well, 100% consumption. PO meds were held since admission to ICU secondary to lethargy, all by mouth meds resumed this a.m.. The patient currently is compliant following commands, inappropriate responses, with noted incomprehensible words, language at times. Patient is noted to be very weak. Nasal cannula O2 has been weaned down to approximately 3 L, the patient appears in no respiratory distress. Subjective: 03/09: Reconsulted secondary acute respiratory failure. Chest x-ray earlier in the morning revealed collapse versus large pleural effusion left side. Patient oxygen requirements had increased from 4 L to a nonrebreather mask. CT thorax revealed likely mucous plugging/collapsed lung left side. Small to moderate left pleural effusion. Patient was combative upon arrival ICU in place in soft restraints. Due to mental status/mucous plugging patient was electively intubated using 20 mg etomidate and 50 mg, rocuronium. Patient was bronched which revealed thick white mucous plugging in the left and right mainstem. These were lavaged to left upper lobe/lingula and left lower lobe, right upper middle and lower lobes. Samples were sent see orders. Currently sedated with propofol and fentanyl drips. 03/10: Tonic seizures today when propofol stopped. Seizures ceased with propofol bolus. Left pneumonia persists but improved aeration after bronch . 03/11: Gas exchange acceptable. Continues to have tonic "seizures" when propofol is lightened. EEG 03/10 states no seizures but we will repeat EEG again today with stimulation and off propofol. Can't extubate until this "seizure" activity is resolved. Vomited tube feeds, will reduce and add reglan. 03/12: Off sedation tolerating CPAP even though intermittently apneic. Appears to follows commands but weekly on the upper extremity. No obvious seizures. EEG negative for seizure 03/11/17. Creatinine slightly improved to 2.8 from 3 03/13: Failed extubation on 03/12. Currently sedated, orally intubated on mechanical ventilation. Has thick copious respiratory secretions per HOUSEKEEPING/LAUNDRY SUPERVISOR. 03/14: Remains sedated, orally intubated on mechanical ventilation. Feeling C Pap trials. Not following commands on lightening sedation. 03/15: Remains intubated encephalopathy. Left lower lobe infiltrate again indicating probable mucous plugging/collapse. Palliative care meeting with family today. I recommend tracheostomy and PEG tube placement. D/W palliative care team 03/16: Off sedation since yesterday 5PM. Eyes open spontaneously. Following commands bilateral upper extremity, he squeezes with both hands. Discussed with Dr. Kingston. Will continue weaning attempt with plan for wean to extubate. s/p bronchoscopy yesterday, with re expansion of L lung. Has moderate secretions. I have updated Lore Darling (sister) about improvement in neuro exam. See below 03/17: Tolerated CPAP 7 hours yesterday. Currently on CPAP. Lethargic/somnolent but follows commands, gives thumbs up on bilateral UE. Creat stable. UO 750 ml in 24 hours. BAL negative to date 03/18: Remains intubated off sedation. There is further improvement in neuro exam, able to move both feet to command, gives thumbs up on both upper extremities. Chest x-ray shows complete white out of the left lung field. We' ll plan for emergency bronchoscopy 03/19: Extubated yesterday, overnight appeared to be having mucus plugging involving L lung. But currently patient is saturating well. He somnolent but wakes up easily and nodding appropriately and following commands, in the bilateral upper extremity 03/20: Today around 5.30 AM, patient acutely became hypoxemic with diminished breath sounds on the left lung field. Placed on nonrebreather clinical exam was consistent with left lower lobe mucus plugging according to Dr. Chadwick. With aggressive suctioning and Mucomyst and DuoNeb breathing treatments, patient 's air entry and saturation improved slightly. Currently on 100% nonrebreather oxygen saturation 90-92% tachypneic but not in severe distress. I discussed tracheostomy with the patient, witnessed by RN Aniket and Dixie. I explained to him that If he gets reintubated he will need tracheostomy due to frequent mucus plugging, with left lung collapse. Patient understands tracheostomy procedure, and wants tracheostomy done in case of reintubation. 03/21: Re intubated yesterday for LLL collapse. Tracheostomy performed yesterday afternoon. Difficult bronchoscopy with therapeutic bronchoscope and multiple attempts to remove the mucus plugging because of the very thick tenacious nature of the plugs. Continue breathing treatments Mucomyst for now. Chest percussion with speciality bed. 03/22: The patient tolerated trach collar trials approximately 1 hour yesterday. The patient continues to have thick secretions, aggressive pulmonary toileting continues with chest percussion. Today the patient indicated that he wanted to be placed back on DNR status. Discussion with family medicine primary service team for cognitive evaluation by psychiatry to assess competency in making this decision. Will continue care as planned, overweight recommendations from psychiatry and palliative medicine. Will hold medication for agitation until assessment is performed, and continue supportive care. 03/23: Acute events overnight. Patient tolerated T piece trials for approximately 5 hours yesterday. Psychiatry consulted seen today. The patient was deemed not competent, full report pending. Objective Vital Signs Date Time Temp Pulse Resp B/P (MAP) Pulse Ox O2 Delivery O2 Flow Rate FiO2 03/23/17 10:00 85 03/23/17 08:00 40 03/23/17 08:00 98.6 25 156/95 (115) 100 03/23/17 07:00 T-Piece 03/21/17 17:12 6.00 Intake and Output 03/23/17 03/23/17 03/24/17 08:00 16:00 00:00 Intake Total 1007 ml Output Total 1000 ml Balance 7 ml Result Diagram: 03/21/17 0414 03/23/17 0335 Imaging Last Impressions Shoulder X-Ray 03/05/17 0000 Signed Impressions: Service Date/Time: Sunday, March 05, 2017 20:57 - CONCLUSION: No acute disease. Rick Sanford MD Abdomen/Pelvis CT 03/04/17 0000 Signed Impressions: Service Date/Time: Saturday, March 04, 2017 10:31 - CONCLUSION: 1. There is no hydronephrosis or renal abnormality to explain the renal failure. However, there is subtle high density stranding along the medial and upper pole of the right kidney. Suggest followup CT to assess for change. 2. Abnormal mass arising from or abutting the spleen in the left upper quadrant measuring up to 7.5 cm. It contains a small amount of calcification. Suggest correlating with any prior imaging study that could offer additional characterization. If none are available suggest followup imaging to confirm stability and consider contrast enhanced CT or MRI for further characterization when patient condition permits. 3. Small bilateral pleural effusions, left larger than right, with associated compressive atelectasis. 4. Severe coronary artery calcification. Kilo Coulter MD Chest X-Ray 03/02/17 0000 Signed Impressions: Service Date/Time: Thursday, March 02, 2017 08:18 - CONCLUSION: Increasing consolidative changes left base. Nasir Mack MD FACR Renal Ultrasound 02/27/17 0000 Signed Impressions: Service Date/Time: Monday, February 27, 2017 20:36 - CONCLUSION: 1. Mildly dilated left renal collecting system. Kidneys normal in size. Trace free fluid. Ruy Hussein MD Brain MRI 02/25/17 0000 Signed Impressions: Service Date/Time: Saturday, February 25, 2017 12:37 - CONCLUSION: Atrophy, periventricular changes without evidence for acute infarction. Nasir Mack MD FACR Head CT 02/23/17 0000 Signed Impressions: Service Date/Time: Thursday, February 23, 2017 07:38 - CONCLUSION: No significant change has occurred. Maximus Pavon MD Objective Remarks GENERAL: 57-year-old male, awake alert currently on T piece in no distress SKIN: Warm and dry. HEAD: Atraumatic. Normocephalic. EYES: Pupils equal and round around 2 mm bilaterally and reactive. No scleral icterus. No injection or drainage. ENT: No nasal bleeding or discharge. Oral cavity is moist NECK: Trachea midline. CARDIOVASCULAR: RRR, tachycardic. S1, S2 no S4. Without murmur. No JVD. RESPIRATORY: Diminished breath sounds left lung thomas. Few coarse rhonchi. Bilateral course crackles GASTROINTESTINAL: Abdomen soft, non-tender, nondistended. Active bowel sounds appreciated MUSCULOSKELETAL: Extremities without without significant peripheral edema. No obvious deformities. Right forearm dressing NEUROLOGICAL: Awake alert oriented to person place and time, nodding appropriately to questions, and conversant. Follows commands bilateral upper and lower extremities. Moves extremities x 4 spontaneously. Patient has periods of agitation. Date of Insertion: Feb 23, 2017 A/P Assessment and Plan Neuro/Psych: Encephalopathy/Delirium most likely metabolic Admission with EtOH withdrawal - likely completed Polysubstance abuse including cocaine and benzodiazepines Polyneuropathy of critical illness Agitation Improved neuro exam. Was following commands, oriented to person place and time before sedation for intubation and trach 03/20/17 Wean propofol and fentanyl as tolerated Patient is followed by Dr. Rogel neurology. EEG's reveal moderate encephalopathy no epileptiform activity. MRI negative for acute findings Previously on Seroquel 25 mg at night DCd and Haldol when necessary- discontinued 03/15/17 Librium DCd 03/15/17 Seizure precautions ?Seizures 03/10-EEG negative for seizures. Continue thiamine 100 mg daily Will hold all sedative medications, continue supportive care when patients agitated. 03/23- cognitive evaluation by Dr. Sheriff to assess competency in making decisions-patient has requested now to be placed back on DNR status. Preliminary reported not competent, await full report Begin Ativan 1 mg every 4 hours when necessary for agitation Respiratory: Acute hypoxemic respiratory failure secondary to aspiration Recurrent left lower lobe collapse/mucus plugging Complete opacification of left lung field due to mucus plugging 03/18/17 s/p tracheostomy 03/20/17 Status post extubation after therapeutic bronchoscopy 03/18/17 and reintubated for left lower lobe collapse on 03/20/17 s/p Tracheostomy 03/21/17. Difficult bronchoscopy with therapeutic scope and multiple attempts to remove very thick mucus plugs from left main bronchus. Continue breathing treatments Mucomyst for now. Chest percussion with speciality bed Patient wants to continue full code and also consented for tracheostomy if he gets reintubated. Witnessed by RNs Aniket and Dixie on 03/20/17 IV Solumedrol 60 q12 03/17/17. Was on Symbicort and Spiriva CT thorax from 03/09 revealed collapse left upper/lingula lobes with significant secretions left main bronchus. s/p bronch Improved aeration 03/10 Cardiovascular: Hypertension Fluid overload Amlodipine 10 mg daily, clonidine 0.1 mg 3 times a day and metoprolol 5 mg by mouth twice a day for hypertension, with holding parameters Use when necessary labetalol and hydralazine when patient is nothing by mouth Maintain MAP > 65 mmHG Bumex as below Renal: Acute kidney injury secondary to ATN Nephrology following Dr. Martinez. Creat 2.9. UO 2.5 L in 24 hours Accurate I's and O's, Monitor urine output. Continue Hall catheter due to worsening renal failure Start scheduled Bumex 2 mg now and 1 mg every 12 hrs- 03/20/17 No signs of hydronephrosis on renal imaging,Urine eosinophils negative FEN/GI: Mild protein calorie malnutrition Hyperkalemia-resolved Hep C Continue tube feeds, hold off PEG tube as patient may be able to take PO diet once off vent Lansoprazole for GI prophylaxis Docusate sodium senna 1 tablet twice a day for bowel regimen. Last BM 03/20-bowel regimen, when necessary meds given Heme/ID: Macro Anemia Thrombocytopenia Probable Pneumonia F/U BAL 03/15-neg to date On previous cultures in BAL have been negative except 02/23 coag negative staph which is contamination Cefepime discontinued 03/19/17, DCd Flagyl and azithromycin 03/09/17-03/15/17 Endocrine: Sliding-scale insulin to maintain euglycemia/low regimen with NovoLog every 6 hours Prophylaxis: GI Prophylaxis Lansoprazole DVT Prophylaxis SCDs/heparin subcutaneous Lines: Peripheral IVs providing adequate access at this time. Palliative care team following to assist with deciding goals of therapy Overall impression: Critically ill with acute respiratory deterioration from recurrent mucus plugging and hypoxemic respiratory failure. Intubated and trached 03/20/17 03/15/17: I discussed and updated Lore Darling (sister) over the phone: [phone]. I explained to her improvement in neurological status. She is agreeable to continued care since there is improvement, and she does not want any other invasive procedures at this time and if there is any further clinical deterioration she wants to pursue comfort measures. 03/22/17: I discussed with Dr. Anderson Matt, family medicine service-patient' s change requests changing to DNR status again, plan for psychiatric cognitive evaluation, if possible to assess competency of the patient. Discussed with HOUSEKEEPING/LAUNDRY SUPERVISOR at bedside,and Dr. Matt. Will await formal report. This patient remains critically ill with one or more organ systems which are or may become a threat to life. I have spent in excess of 30 minutes discontinuously in the care and management of this patient. This time is exclusive of procedures, and includes, but is not limited to, evaluation of the patient, review of the medical record, discussions with family, consultants, nursing staff, or respiratory therapy, and documentation in the medical record. Physician Edie De La Fuente MD Mar 23, 2017 11:12
--- NOTE | 2017-03-23 11:17 | HHI.NPPN ---
Subjective History of Present Illness 57-year-old male with the alcohol withdrawal, altered mental status, acute renal failure Additional Remarks Patient re intubated again s/p Trach on trach collar O2 Objective Data Data Vital Signs Date Time Temp Pulse Resp B/P (MAP) Pulse Ox O2 Delivery O2 Flow Rate FiO2 03/23/17 10:00 85 03/23/17 08:00 40 03/23/17 08:00 81 03/23/17 08:00 98.6 81 25 156/95 (115) 100 03/23/17 07:19 40 03/23/17 07:19 98 40 03/23/17 07:00 100 T-Piece 40 03/23/17 06:00 82 03/23/17 04:02 100 40 03/23/17 04:00 76 03/23/17 04:00 98.9 76 16 139/85 (103) 100 03/23/17 04:00 40 03/23/17 02:00 72 03/23/17 01:19 100 40 03/23/17 00:00 75 03/23/17 00:00 40 03/23/17 00:00 99.0 75 16 164/98 (120) 99 03/22/17 23:32 100 40 03/22/17 22:00 90 03/22/17 20:00 80 03/22/17 20:00 40 03/22/17 20:00 99.9 80 16 149/93 (111) 99 03/22/17 19:33 100 40 03/22/17 19:00 Mechanical Ventilator 03/22/17 18:00 81 03/22/17 16:00 97.9 71 16 148/95 (112) 100 03/22/17 16:00 71 03/22/17 16:00 60 03/22/17 15:34 97 40 03/22/17 14:00 98 03/22/17 12:00 85 03/22/17 12:00 98.5 89 26 152/88 (109) 98 03/22/17 12:00 60 03/22/17 11:39 95 T-piece 50 03/22/17 11:17 98 40 -: 03/21/17 0414 03/23/17 0335 Physical Exam General Appearance: Malnourished Eyes Eye Exam: Pupils Equal Throat Throat Exam: Oral Mucosa [place] & Moist Neck Neck Exam: Neck Supple Pulmonary Resp Exam: Crackles, Rhonchi, Decreased Bases, Diminished Breath Sounds Cardiology CV Exam: Regular, Normal Sinus Rhythm Gastrointestinal/Abdomen GI Exam: Soft, Non-Tender, Bowel Sounds Present Musculoskeletal MS Remarks left shoulder sub laxation ? dislocated Extremeties Extremities Exam: Trace Edema Neurologic Neuro Exam: Obtunded Assessment/Plan Problem List: (1) SAQIB (acute kidney injury) ICD Codes: N17.9 - Acute kidney failure, unspecified Status: Acute Plan: Acute renal failure acute tubular necrosis with drug use Non oliguric, creatinine is at 2.7 s/p Trach Hepatitis C positive Ammonia not high s/p bronchoscopy with removal of mucous plug self extubated, multiple re intubations, now going to have Trach CT scan abdominal reviewed Subtle high density stranding medial/upper right kidney. Abnormal mass arising from/abutting spleen LUQ measuring up to 7.5 cm with small amount of calcification. FIDEL is positive 1:80, low titre. Cr 2.7 ANCA negative patient very weak will wait to see if feels better Trach collar O2 Cr stable on Bumex 1 mg q 12 (2) Alcohol withdrawal ICD Codes: F10.239 - Alcohol dependence with withdrawal, unspecified Status: Chronic Plan: Patient remained in altered mental status (3) Hypertension ICD Codes: I10 - Essential (primary) hypertension Status: Chronic Plan: Patient's blood pressure was labile continue to monitor Problem Qualifiers (1) Alcohol withdrawal: Qualified Codes: F10.231 - Alcohol dependence with withdrawal delirium (2) Hypertension: Qualified Codes: I10 - Essential (primary) hypertension Daryl Martinez MD Mar 23, 2017 11:17
--- NOTE | 2017-03-23 14:18 | HHI.PYPN ---
Subjective Remarks Patient was seen today for psychiatric reevaluation her request of primary medical team for decision capacity assessment. He was seen by Dr. Gamez March 03, his documentation and recommendations were reviewed. On psychiatric evaluation today patient remains restrained in 2 points, noncommunicative, alert but unable to answer questions. I tried to communicate with the patient by signaling, also by eye blinking, but patient is persistently disoriented and uncooperative. I also have reviewed the documentation of palliative care in 03/15/2017, in which goals of care and health care by proxy are clear defined, as well as DNR and DNI status. Review of Systems ROS Limitations: Unresponsive Objective Alert: Yes Bath: Person Mood: Other (no able to be assessed) Affect: Other (no able to be assessed) Memory Intact: Comment (no able to be assessed) Hallucinations: Other (no able to be assessed) Delusions: No Delusion Type: Other (no able to be assessed) Suicidal: Ideation (no able to be assessed) Homicidal: Ideation (no able to be assessed) Insight/Judgment Poor Labs Test 03/23/17 03:35 Blood Urea Nitrogen 70 MG/DL Creatinine 2.72 MG/DL Random Glucose 141 MG/DL Calcium Level 8.7 MG/DL Sodium Level 144 MEQ/L Potassium Level 3.9 MEQ/L Chloride Level 107 MEQ/L Carbon Dioxide Level 30.4 MEQ/L Anion Gap 7 MEQ/L Estimat Glomerular Filtration Rate 24 ML/MIN Troponin I LESS THAN 0.02 NG/ML Date/Time Source Procedure Growth Status 03/02/17 10:56 Blood Peripheral Aerobic Blood Culture - Final NO GROWTH IN 5 DAYS Complete 03/02/17 10:56 Blood Peripheral Anaerobic Blood Culture - Final NO GROWTH IN 5 DAYS Complete 03/02/17 11:50 Stool Stool Stool Occult Blood (LILLY) - Final HEMOCCULT NEGATIVE Complete 03/15/17 15:40 Bronchial Brushings Left Lower Lobe Fungal Smear - Final NO FUNGAL ELEMENTS SEEN. Resulted 03/15/17 15:40 Bronchial Brushings Left Lower Lobe Fungal Culture - Preliminary NO GROWTH IN 1 WEEK Resulted 03/09/17 18:50 Urine Catheterized Urine Streptococcus pneumoniae Antigen (M - Final PRESUMPTIVE NEGATIVE FOR STREPTOCOCCU... Complete Vitals/IOs Vital Signs Date Time Temp Pulse Resp B/P (MAP) Pulse Ox O2 Delivery O2 Flow Rate FiO2 03/23/17 12:00 74 03/23/17 12:00 98.9 24 150/88 (108) 100 03/23/17 12:00 40 03/23/17 07:00 T-Piece 03/21/17 17:12 6.00 Intake and Output 03/23/17 03/23/17 03/24/17 08:00 16:00 00:00 Intake Total 1007 ml Output Total 1000 ml Balance 7 ml Assessment & Plan Problem List: (1) Altered mental status ICD Codes: R41.82 - Altered mental status, unspecified Status: Acute Assessment & Plan: Since patient is unable to fulfill any of the 4 quart of decision-making capacity assessment: Expression or verbalization of a rational choice, of a clear understanding and appreciation of medical illnesses and a rational manipulation of information, the patient definitely doesn't have a decision-making capacity to participate in treatment decisions at this moment. DNR/DNI status and goals of care as per Healthcare proxy, well defined by palliative care: Patient's sister Lore acting as healthcare proxy decision maker electing to transition patient to comfort-directed care to include NO code , NO tracheostomy, NO PEG tube and NO additional invasive interventions/ procedures. Sister reports that "what is being done at this point would probably be unacceptable to Mr. Cuevas". She asks about transition to comfort measures/compassionate withdrawal life support. (2) Polysubstance abuse ICD Codes: F19.10 - Other psychoactive substance abuse, uncomplicated Status: Acute Assessment & Plan: Patient does not meet criteria for psychiatric admission Assessment & Plan Estimated LOS: days Justification for Cont. Inpt. Patient does not meet criteria for psychiatric admission Problem Qualifiers (1) Altered mental status: Qualified Codes: R41.0 - Disorientation, unspecified Shane Sheriff MD Mar 23, 2017 14:18
[2017-03-23] MEDS ORDERED: ACETAMINOPHEN 1000 MG/100 ML VIAL IV ONE (14:30)
--- NOTE | 2017-03-23 17:47 | HHI.HCPN ---
Reason for visit a. To assist with evaluation and management of symptoms including: Shortness of breath, debility b. To assist medical decision maker(s) with: better understanding of current medical conditions; weighing benefits/burdens of medical treatment options; making medical treatment decisions. Subjective/Interval History Mr. Cuevas is a 57 years old male with a medical history significant for EtOH use and abuse, tobacco use and abuse and depression. Patient was brought to [facility] ED on 02/23/17 via [place] the 40s. Patient was admitted for management of altered mental status associated with withdrawal delirium tremens and cellulitis to right upper extremity. Clinical course complicated by acute kidney failure, persistent altered mental status and respiratory failure requiring intubation and mechanical ventilation. Palliative care consulted for further clarifications of goals of care. Interval history: 03/22/[address] Sheriff consulted for decision capacity evaluation, patient currently deemed not capacitated to make any medical decisions at this time. Patient seen in ICU, he is currently on T piece, FiO2 40%. Alert and awake, following simple commands but unable to follow complex commands like showing 2 fingers. Patient remains with bilateral upper extremity soft restraints. Patient does not seem to be able to have proper insight or judgement regarding his medical status. Laboratory workup revealing WBC 144, Potassium 3.9, BUN/Creatinine 70/2.72. Chest x-ray revealing basilar airspace disease, left greater than right no pneumothorax. Per nursing, there was a Salima Whyte who presented today in patient`s . Contacted patients sister Lore Darling and updated her on patient`s medical status. Notified her of the person who presented as patient`s and she stated that she was not aware that he was . Case discussed with bedside RN Marie. . Family/friend interactions Telephone conversation with patient`s sister Lore Darling. . Advance Directives Living Will: Copy in medical record Health Care Surrogate: Never completed Durable Power of Insurance Loss Control Surveyor: Never completed Advance Directive Specifics Date completed: 03/20/2017 . Health Care Surrogate(s): Sister-Lore Darling . Objective Vital Signs Date Time Temp Pulse Resp B/P (MAP) Pulse Ox O2 Delivery O2 Flow Rate FiO2 03/23/17 16:46 100 40 03/23/17 12:00 74 03/23/17 12:00 98.9 74 24 150/88 (108) 100 03/23/17 12:00 40 03/23/17 10:00 85 03/23/17 08:00 40 03/23/17 08:00 81 03/23/17 08:00 98.6 81 25 156/95 (115) 100 03/23/17 07:19 40 03/23/17 07:19 98 40 03/23/17 07:00 100 T-Piece 40 03/23/17 06:00 82 03/23/17 04:02 100 40 03/23/17 04:00 76 03/23/17 04:00 98.9 76 16 139/85 (103) 100 03/23/17 04:00 40 03/23/17 02:00 72 03/23/17 01:19 100 40 03/23/17 00:00 75 03/23/17 00:00 40 03/23/17 00:00 99.0 75 16 164/98 (120) 99 03/22/17 23:32 100 40 03/22/17 22:00 90 03/22/17 20:00 80 03/22/17 20:00 40 03/22/17 20:00 99.9 80 16 149/93 (111) 99 03/22/17 19:33 100 40 03/22/17 19:00 Mechanical Ventilator 03/22/17 18:00 81 Intake & Output 03/23/17 03/23/17 07:00 19:00 Intake Total 1347 ml Output Total 1000 ml Balance 347 ml Tube Feeding 667 ml Other 680 ml Output Urine Total 1000 ml # Bowel Movements 3 Physical Exam CONSTITUTIONAL/GENERAL: This is an ill looking male who looks older than stated age, trached on Tpierce TUBES/LINES/DRAINS: PIVs, , SCDs. NGT to right nare SKIN: Rash/ecchymosis to RUE. Scattered ecchymoses on upper extremities. Open areas/scabs to right upper extremity. Scattered scabs on face. Skin temperature appropriate. HEAD: Atraumatic. Normocephalic. EYES: Pupils equal and round and reactive. No scleral icterus. No injection or drainage. NECK: Trachea midline. Supple, nontender. CARDIOVASCULAR: Regular rhythm, controlled rate, S1, S2, S3 gallop, no murmur. RESPIRATORY/CHEST: Symmetric, unlabored respirations. Lungs rhonchi to auscultation. GASTROINTESTINAL: Abdomen soft, non-tender, nondistended. Bowel sounds present. GENITOURINARY: Without palpable bladder distension. Condom catheter. MUSCULOSKELETAL: Extremities without clubbing, cyanosis. 1+ dependent edema. NEUROLOGICAL: Awake, lethargic, weak, following simple but not complex commands. PSYCHIATRIC: Calm . Diagnostic Tests Laboratory Laboratory Tests Test 03/21/17 04:14 03/22/17 04:18 03/23/17 03:35 White Blood Count 5.2 TH/MM3 (4.0-11.0) Red Blood Count 3.21 MIL/MM3 (4.50-5.90) Hemoglobin 11.0 GM/DL (13.0-17.0) Hematocrit 32.4 % (39.0-51.0) Mean Corpuscular Volume 101.0 FL (80.0-100.0) Mean Corpuscular Hemoglobin 34.2 PG (27.0-34.0) Mean Corpuscular Hemoglobin Concent 33.9 % (32.0-36.0) Red Cell Distribution Width 14.1 % (11.6-17.2) Platelet Count 129 TH/MM3 (150-450) Mean Platelet Volume 10.1 FL (7.0-11.0) Neutrophils (%) (Auto) 82.5 % (16.0-70.0) Lymphocytes (%) (Auto) 11.3 % (9.0-44.0) Monocytes (%) (Auto) 6.2 % (0.0-8.0) Eosinophils (%) (Auto) 0.0 % (0.0-4.0) Basophils (%) (Auto) 0.0 % (0.0-2.0) Neutrophils # (Auto) 4.3 TH/MM3 (1.8-7.7) Lymphocytes # (Auto) 0.6 TH/MM3 (1.0-4.8) Monocytes # (Auto) 0.3 TH/MM3 (0-0.9) Eosinophils # (Auto) 0.0 TH/MM3 (0-0.4) Basophils # (Auto) 0.0 TH/MM3 (0-0.2) CBC Comment DIFF FINAL Differential Comment Blood Urea Nitrogen 63 MG/DL (7-18) 66 MG/DL (7-18) 70 MG/DL (7-18) Creatinine 2.92 MG/DL (0.60-1.30) 2.84 MG/DL (0.60-1.30) 2.72 MG/DL (0.60-1.30) Random Glucose 101 MG/DL (74-106) 107 MG/DL (74-106) 141 MG/DL (74-106) Total Protein 7.6 GM/DL (6.4-8.2) Albumin 3.2 GM/DL (3.4-5.0) Calcium Level 9.0 MG/DL (8.5-10.1) 9.0 MG/DL (8.5-10.1) 8.7 MG/DL (8.5-10.1) Magnesium Level 2.4 MG/DL (1.5-2.5) Alkaline Phosphatase 107 U/L (45-117) Aspartate Amino Transf (AST/SGOT) 97 U/L (15-37) Alanine Aminotransferase (ALT/SGPT) 73 U/L (12-78) Total Bilirubin 0.7 MG/DL (0.2-1.0) Sodium Level 142 MEQ/L (136-145) 143 MEQ/L (136-145) 144 MEQ/L (136-145) Potassium Level 4.0 MEQ/L (3.5-5.1) 3.9 MEQ/L (3.5-5.1) 3.9 MEQ/L (3.5-5.1) Chloride Level 106 MEQ/L (98-107) 106 MEQ/L (98-107) 107 MEQ/L (98-107) Carbon Dioxide Level 25.8 MEQ/L (21.0-32.0) 28.8 MEQ/L (21.0-32.0) 30.4 MEQ/L (21.0-32.0) Anion Gap 10 MEQ/L (5-15) 8 MEQ/L (5-15) 7 MEQ/L (5-15) Estimat Glomerular Filtration Rate 22 ML/MIN (>89) 23 ML/MIN (>89) 24 ML/MIN (>89) Troponin I LESS THAN 0.02 NG/ML Result Diagram: 03/21/17 0414 03/23/17 0335 Procedures * 03/20/17 -Bronchoscopy & Tracheostomy placement * 03/20/17-Reintubation * 03/19/17 -Extubated * 03/18/17 -Bronchoscopy * 03/15/17 -bronchoscopy * 03/12/17 -reintubated * 03/12/17 -medical extubated * 03/09/17 -endotracheal Intubation * 03/09/17 -Bronchoscopy . Assessment and Plan Disease Oriented Problem List: (1) Acute hypoxemic respiratory failure (2) Acute kidney injury (3) PNA (pneumonia) (4) Encephalopathy (5) Cellulitis (6) Protein-calorie malnutrition (7) Physical deconditioning Symptom Scale: (1) Shortness of breath 0-10 Scale: Unable to quantify Comment: Now trached on T [place], FIO2 40% .. (2) Anxiety 0-10 Scale: Unable to quantify (3) Debility 0-10 Scale: Unable to quantify Comment: Progressive given acute events and prolonged hospitalization. Pertinent Non-Medical Issues Psychosocial: Patient is homeless. Chronic alcohol abuse and polysubstance abuse. On an admission in April, patient stated that he grew up in [place], [place], highest level of education is high school. Patient has as per records. Patient's mother and father . Patient also reported that he had been incarcerated at least 50 times. Spiritual: Unknown. Legal: unknown if advance directives have been completed. Ethical issues impacting care: Important Contacts Lore Darling (sister): [phone] Salima Whyte (presented as patient`s ) . Prognosis Mr. Cuevas is a 57 years old male with a medical history significant for EtOH use and abuse, tobacco use and abuse and depression. Patient was brought to [facility] ED on 02/23/17 via [place] sugar in the 40s. Patient was admitted for management of altered mental status associated with withdrawal delirium tremens and cellulitis to right upper extremity. Clinical course complicated by persistent encephalopathy, acute kidney injury and respiratory failure required intubation , tracheostomy and mechanical ventilation. Patient's overall prognosis is poor given the above. . Code Status: Full Code Plan PLAN: Legal decision maker: Patient trached and deemed incapacitated to make his own medical decisions by Psychiatry. Patient`s sister Lore Darling is now his petrona care surrogate and will assist with medical decision while patient is incapacitated Goals: Continue to be aggressive. CODE STATUS: FULL CODE SYMPTOMS: * Dyspnea - patient trached 03/20/17 and remains on mechanical ventilation. O2 Sat high 90s-100s. Patient receiving, Symbicort, Spiriva, Mucomyst, DuoNeb, Solu-Medrol and albuterol. Chest percussion with speciality bed. * Debility - he is extremely weak and fatigued. Physical therapy and occupational therapy are following. Up to stretcher chair only at this time. Will need continuous and extensive therapy. Palliative care will continue to follow the patient during hospital course as condition evolves, to assist patient/decision-maker with understanding of their medical conditions, weighing benefits/burdens of treatment options, for clarification of goals of treatment. Additionally will assist with any symptoms of palliative concern . Ana Posadas Mar 23, 2017 17:47
[2017-03-23] MEDS: LORazepam 2 MG/ML VIAL IV PUSH PRN (18:04)
[2017-03-24] VITALS (21 sets, daily range): BP systolic 122–158; BP diastolic 87–99; PULSE 70–102; RESP 13–29; TEMP 97.9–98.9; O2SAT 93–100
[2017-03-24] MEDS: cloNIDine HCL 0.1 MG TAB PO PRN (00:03)
[2017-03-24] MEDS: RESP: ALBUTEROL 2.5 MG/IPRATROPIUM 0.5 MG NEB (SCH) NEB ×7 (00:52→23:50)
[2017-03-24] MEDS: FREE WATER G-TUBE SCH ×3 (05:14→22:00)
[2017-03-24] MEDS: ARTIFICIAL TEARS OPTH SOLN 15 ML BTL EACH EYE SCH ×3 (05:14→22:00)
[2017-03-24] MEDS: LORazepam 2 MG/ML VIAL IV PUSH PRN (05:14)
[2017-03-24] MEDS: CHLORHEXIDINE 0.12% (ORAL KIT) 15 ML CUP MT SCH ×4 (08:00→20:00)
[2017-03-24] MEDS: BENEPROTEIN POWDER 1 PACK G-TUBE SCH ×3 (09:00→17:19)
[2017-03-24] MEDS: methylPREDNISolone SOD SUCC 125 MG/2 ML VIAL IV PUSH SCH ×2 (09:26→20:03)
[2017-03-24] MEDS: BUMETANIDE INJ 1 MG/4 ML VIAL IV PUSH SCH ×2 (09:27→17:19)
[2017-03-24] MEDS: LANSOPRAZOLE SOLUTAB 30 MG TAB NG SCH (09:27)
[2017-03-24] MEDS: MULTIVITAMIN TAB PO SCH (09:27)
[2017-03-24] MEDS: METOPROLOL TARTRATE 25 MG TAB PO SCH ×2 (09:28→20:03)
[2017-03-24] MEDS: SODIUM CHLORIDE 0.9% FLUSH 10 ML FLUSH IV FLUSH SCH ×2 (09:33→20:03)
[2017-03-24] MEDS: TIOTROPIUM BROMIDE 18 MCG INH INH SCH (09:35)
[2017-03-24] MEDS: THIAMINE HCL 100 MG TAB PO SCH (09:35)
[2017-03-24] MEDS: BUDESONIDE-FORMOTEROL 160/4.5 MCG INHALER INH SCH ×2 (09:36→21:00)
[2017-03-24] MEDS: HEPARIN SODIUM - SQ 10,000 UNITS/ML VIAL SQ SCH ×2 (10:10→22:47)
--- NOTE | 2017-03-24 10:51 | HHI.CCPN ---
Subjective Remarks/Hospital Course This is a 57-year-old male that was found down and admitted to this hospital 02/23/2017. Urine tox screen revealed patient was positive for benzodiazepines and cocaine at that time. Since admission the patient has been on a [facility] protocol, neurology has been consulted Dr. Wayne, with continued supportive care. Over the last 48 hours the patient was noted to have elevation in his creatinine with a significant decrease in urine output acute renal failure nephrology was consulted the patient continues on gentle diuresis and received 80 mg of Lasix IV this afternoon and is currently on sodium bicarbonate infusion at 110 cc/an hour. Due to the patient's respiratory insufficiency, and altered mental status concern for possible continued respiratory decompensation the patient was transferred to the ICU, and critical care was consulted for management. Upon entering the patient's room the patient was noted to be lethargic having received 4 mg of Ativan in the last 4 hours, but opens eyes to sternal rub. The patient was noted to have O2 saturation of 95% on O2 via nasal cannula at 5 L with no accessory respiratory efforts. Stat ABG was ordered pending, to rule out CO2 narcosis. Since admission to ICU the patient was noted to diuresis of 700 cc. 03/03: Afebrile. The patient did not receive any Ativan since 3 PM on 03/02/17. The patient rested well overnight, eventually waking and responding. This a.m. the patient's noted to be sitting up in bed, alert and responsive. Librium has been added to medication regimen for alcohol withdrawal. Noted to be oriented to date of unable to provide name or place at this time. Essential tremors, fine tremors noted. The patient severely weak and unable to feed self without assistance. The patient's diet was advanced to regular diet, tolerating well, 100% consumption. PO meds were held since admission to ICU secondary to lethargy, all by mouth meds resumed this a.m.. The patient currently is compliant following commands, inappropriate responses, with noted incomprehensible words, language at times. Patient is noted to be very weak. Nasal cannula O2 has been weaned down to approximately 3 L, the patient appears in no respiratory distress. Subjective: 03/09: Reconsulted secondary acute respiratory failure. Chest x-ray earlier in the morning revealed collapse versus large pleural effusion left side. Patient oxygen requirements had increased from 4 L to a nonrebreather mask. CT thorax revealed likely mucous plugging/collapsed lung left side. Small to moderate left pleural effusion. Patient was combative upon arrival ICU in place in soft restraints. Due to mental status/mucous plugging patient was electively intubated using 20 mg etomidate and 50 mg, rocuronium. Patient was bronched which revealed thick white mucous plugging in the left and right mainstem. These were lavaged to left upper lobe/lingula and left lower lobe, right upper middle and lower lobes. Samples were sent see orders. Currently sedated with propofol and fentanyl drips. 03/10: Tonic seizures today when propofol stopped. Seizures ceased with propofol bolus. Left pneumonia persists but improved aeration after bronch . 03/11: Gas exchange acceptable. Continues to have tonic "seizures" when propofol is lightened. EEG 03/10 states no seizures but we will repeat EEG again today with stimulation and off propofol. Can't extubate until this "seizure" activity is resolved. Vomited tube feeds, will reduce and add reglan. 03/12: Off sedation tolerating CPAP even though intermittently apneic. Appears to follows commands but weekly on the upper extremity. No obvious seizures. EEG negative for seizure 03/11/17. Creatinine slightly improved to 2.8 from 3 03/13: Failed extubation on 03/12. Currently sedated, orally intubated on mechanical ventilation. Has thick copious respiratory secretions per [employer]. 03/14: Remains sedated, orally intubated on mechanical ventilation. Feeling C Pap trials. Not following commands on lightening sedation. 03/15: Remains intubated encephalopathy. Left lower lobe infiltrate again indicating probable mucous plugging/collapse. Palliative care meeting with family today. I recommend tracheostomy and PEG tube placement. D/W palliative care team 03/16: Off sedation since yesterday 5PM. Eyes open spontaneously. Following commands bilateral upper extremity, he squeezes with both hands. Discussed with Dr. Kingston. Will continue weaning attempt with plan for wean to extubate. s/p bronchoscopy yesterday, with re expansion of L lung. Has moderate secretions. I have updated Lore Darling (sister) about improvement in neuro exam. See below 03/17: Tolerated CPAP 7 hours yesterday. Currently on CPAP. Lethargic/somnolent but follows commands, gives thumbs up on bilateral UE. Creat stable. UO 750 ml in 24 hours. BAL negative to date 03/18: Remains intubated off sedation. There is further improvement in neuro exam, able to move both feet to command, gives thumbs up on both upper extremities. Chest x-ray shows complete white out of the left lung field. We' ll plan for emergency bronchoscopy 03/19: Extubated yesterday, overnight appeared to be having mucus plugging involving L lung. But currently patient is saturating well. He somnolent but wakes up easily and nodding appropriately and following commands, in the bilateral upper extremity 03/20: Today around 5.30 AM, patient acutely became hypoxemic with diminished breath sounds on the left lung field. Placed on nonrebreather clinical exam was consistent with left lower lobe mucus plugging according to Dr. Chadwick. With aggressive suctioning and Mucomyst and DuoNeb breathing treatments, patient 's air entry and saturation improved slightly. Currently on 100% nonrebreather oxygen saturation 90-92% tachypneic but not in severe distress. I discussed tracheostomy with the patient, witnessed by RN Aniket and Dixie. I explained to him that If he gets reintubated he will need tracheostomy due to frequent mucus plugging, with left lung collapse. Patient understands tracheostomy procedure, and wants tracheostomy done in case of reintubation. 03/21: Re intubated yesterday for LLL collapse. Tracheostomy performed yesterday afternoon. Difficult bronchoscopy with therapeutic bronchoscope and multiple attempts to remove the mucus plugging because of the very thick tenacious nature of the plugs. Continue breathing treatments Mucomyst for now. Chest percussion with speciality bed. 03/22: The patient tolerated trach collar trials approximately 1 hour yesterday. The patient continues to have thick secretions, aggressive pulmonary toileting continues with chest percussion. Today the patient indicated that he wanted to be placed back on DNR status. Discussion with family medicine primary service team for cognitive evaluation by psychiatry to assess competency in making this decision. Will continue care as planned, overweight recommendations from psychiatry and palliative medicine. Will hold medication for agitation until assessment is performed, and continue supportive care. 03/23: Acute events overnight. Patient tolerated T piece trials for approximately 5 hours yesterday. Psychiatry consulted seen today. The patient was deemed not competent, full report pending. 03/24: Patient became agitated during the night received 2 doses of Ativan which were ineffective Seroquel added to medication regimen low dose. The patient successfully underwent T piece trials for 6.5 hours yesterday as well as CPAP for 3 hours. Psychiatry was consulted and the patient was deemed not to have any decision-making capacity and sister continues to be the healthcare surrogate for the patient. Yesterday a female individual into the room and stated that she was the patient's palliative care was re-consulted as well as case management to follow-up if the individual is the patient's next of kin. The patient's sister states she was unaware that the patient was . Objective Vital Signs Date Time Temp Pulse Resp B/P (MAP) Pulse Ox O2 Delivery O2 Flow Rate FiO2 03/24/17 09:10 40 03/24/17 08:16 100 03/24/17 06:00 95 03/24/17 04:00 98.7 19 158/99 (118) 03/23/17 19:00 Mechanical Ventilator Trach Collar 03/21/17 17:12 6.00 Intake and Output 03/24/17 03/24/17 03/25/17 08:00 16:00 00:00 Intake Total 790 ml Output Total 1075 ml Balance -285 ml Result Diagram: 03/21/17 0414 03/23/17 0335 Imaging Last Impressions Shoulder X-Ray 03/05/17 0000 Signed Impressions: Service Date/Time: Sunday, March 05, 2017 20:57 - CONCLUSION: No acute disease. Rick Sanford MD Abdomen/Pelvis CT 03/04/17 0000 Signed Impressions: Service Date/Time: Saturday, March 04, 2017 10:31 - CONCLUSION: 1. There is no hydronephrosis or renal abnormality to explain the renal failure. However, there is subtle high density stranding along the medial and upper pole of the right kidney. Suggest followup CT to assess for change. 2. Abnormal mass arising from or abutting the spleen in the left upper quadrant measuring up to 7.5 cm. It contains a small amount of calcification. Suggest correlating with any prior imaging study that could offer additional characterization. If none are available suggest followup imaging to confirm stability and consider contrast enhanced CT or MRI for further characterization when patient condition permits. 3. Small bilateral pleural effusions, left larger than right, with associated compressive atelectasis. 4. Severe coronary artery calcification. Kilo Coulter MD Chest X-Ray 03/02/17 0000 Signed Impressions: Service Date/Time: Thursday, March 02, 2017 08:18 - CONCLUSION: Increasing consolidative changes left base. Nasir Mack MD FACR Renal Ultrasound 02/27/17 0000 Signed Impressions: Service Date/Time: Monday, February 27, 2017 20:36 - CONCLUSION: 1. Mildly dilated left renal collecting system. Kidneys normal in size. Trace free fluid. Ruy Hussein MD Brain MRI 02/25/17 0000 Signed Impressions: Service Date/Time: Saturday, February 25, 2017 12:37 - CONCLUSION: Atrophy, periventricular changes without evidence for acute infarction. Nasir Mack MD FACR Head CT 02/23/17 0000 Signed Impressions: Service Date/Time: Thursday, February 23, 2017 07:38 - CONCLUSION: No significant change has occurred. Maximus Pavon MD Objective Remarks GENERAL: 57-year-old male, awake alert currently on T piece in no distress SKIN: Warm and dry. HEAD: Atraumatic. Normocephalic. EYES: Pupils equal and round around 2 mm bilaterally and reactive. No scleral icterus. No injection or drainage. ENT: No nasal bleeding or discharge. Oral cavity is moist . Tracheostomy site without erythema or drainage NECK: Trachea midline. CARDIOVASCULAR: RRR, tachycardic. S1, S2 no S4. Without murmur. No JVD. RESPIRATORY: Diminished breath sounds left lung thomas. Few coarse rhonchi. Bilateral course crackles GASTROINTESTINAL: Abdomen soft, non-tender, nondistended. Active bowel sounds appreciated MUSCULOSKELETAL: Extremities without without significant peripheral edema. No obvious deformities. Right forearm dressing NEUROLOGICAL: Awake alert oriented to person place and time, nodding appropriately to questions, and conversant. Follows commands bilateral upper and lower extremities. Moves extremities x 4 spontaneously. Patient has periods of agitation. Date of Insertion: Feb 23, 2017 A/P Assessment and Plan Neuro/Psych: Encephalopathy/Delirium most likely metabolic Admission with EtOH withdrawal - likely completed Polysubstance abuse including cocaine and benzodiazepines Polyneuropathy of critical illness Agitation Improved neuro exam. Was following commands, oriented to person place and time before sedation for intubation and trach 03/20/17 Wean propofol and fentanyl as tolerated Patient is followed by Dr. Rogel neurology. EEG's reveal moderate encephalopathy no epileptiform activity. MRI negative for acute findings Previously on Seroquel 25 mg at night DCd and Haldol when necessary- discontinued 03/15/17 Librium DCd 03/15/17 Seizure precautions ?Seizures 03/10-EEG negative for seizures. Continue thiamine 100 mg daily Will hold all sedative medications, continue supportive care when patients agitated. 03/23- cognitive evaluation by Dr. Sheriff -no decision-making capacity 03/24 Ativan discontinued, Seroquel 25 mg daily initiated Respiratory: Acute hypoxemic respiratory failure secondary to aspiration Recurrent left lower lobe collapse/mucus plugging Complete opacification of left lung field due to mucus plugging 03/18/17 s/p tracheostomy 03/20/17 Status post extubation after therapeutic bronchoscopy 03/18/17 and reintubated for left lower lobe collapse on 03/20/17 s/p Tracheostomy 03/21/17. Difficult bronchoscopy with therapeutic scope and multiple attempts to remove very thick mucus plugs from left main bronchus. Continue breathing treatments Mucomyst for now. Chest percussion with speciality bed Patient wants to continue full code and also consented for tracheostomy if he gets reintubated. Witnessed by RNs Aniket and Dixie on 03/20/17 IV Solumedrol 60 q12 03/17/17, 03/24 begin weaning process to 40 mg every 12. Was on Symbicort and Spiriva CT thorax from 03/09 revealed collapse left upper/lingula lobes with significant secretions left main bronchus. s/p bronch Improved aeration 03/10 Continue attempts at T piece trials, aggressive pulmonary toileting Cardiovascular: Hypertension Fluid overload Amlodipine 10 mg daily, clonidine 0.1 mg 3 times a day and metoprolol 5 mg by mouth twice a day for hypertension, with holding parameters Use when necessary labetalol and hydralazine when patient is nothing by mouth Maintain MAP > 65 mmHG Bumex as below Renal: Acute kidney injury secondary to ATN Nephrology following Dr. Martinez. Creat 2.9. UO 2.5 L in 24 hours Accurate I's and O's, Monitor urine output. Continue Hall catheter due to worsening renal failure Start scheduled Bumex 2 mg now and 1 mg every 12 hrs- 03/20/17 No signs of hydronephrosis on renal imaging, Urine eosinophils negative FEN/GI: Mild protein calorie malnutrition Hyperkalemia-resolved Hep C Continue tube feeds, hold off PEG tube as patient may be able to take PO diet once off vent Lansoprazole for GI prophylaxis Docusate sodium senna 1 tablet twice a day for bowel regimen. Last BM 03/20-bowel regimen, when necessary meds given Free water deficit 1.2 L-continue free water 300 cc every 8 hours Follow-up BMP Heme/ID: Macro Anemia Thrombocytopenia Probable Pneumonia F/U BAL 03/15-neg to date On previous cultures in BAL have been negative except 02/23 coag negative staph which is contamination Cefepime discontinued 03/19/17, DCd Flagyl and azithromycin 03/09/17-03/15/17 Endocrine: Sliding-scale insulin to maintain euglycemia/low regimen with NovoLog every 6 hours Prophylaxis: GI Prophylaxis Lansoprazole DVT Prophylaxis SCDs/heparin subcutaneous Lines: Peripheral IVs providing adequate access at this time. Palliative care team following to assist with deciding goals of therapy Overall impression: Critically ill with acute respiratory deterioration from recurrent mucus plugging and hypoxemic respiratory failure. Intubated and trached 03/20/17 03/15/17: I discussed and updated Lore Darling (sister) over the phone: . I explained to her improvement in neurological status. She is agreeable to continued care since there is improvement, and she does not want any other invasive procedures at this time and if there is any further clinical deterioration she wants to pursue comfort measures. 03/24/17: Patient deemed by psychiatry not to have decision-making capacity. Sister Lore Darling currently is the patient's healthcare surrogate. Confirmation of healthcare surrogacy pending -requested by palliative medicine in case management as a person visited on 03/23, stating she is the patient's . This patient remains critically ill with one or more organ systems which are or may become a threat to life. I have spent in excess of 30 minutes discontinuously in the care and management of this patient. This time is exclusive of procedures, and includes, but is not limited to, evaluation of the patient, review of the medical record, discussions with family, consultants, nursing staff, or respiratory therapy, and documentation in the medical record. Physician Edie De La Fuente MD Mar 24, 2017 10:51
[2017-03-24] MEDS ORDERED: QUEtiapine FUMARATE 25 MG TAB PO SCH (11:30)
[2017-03-24] MEDS: QUEtiapine FUMARATE 25 MG TAB PO SCH (11:43)
--- NOTE | 2017-03-24 12:05 | HHI.FPPN ---
Subjective Remarks Pt seen and examined this morning. No acute events overnight. Pt not able to vocally communicate due to trach. Vital signs stable. He was able to tolerate TPs trials for 6.5 hours yesterday. Patient's nurse with no acute concerns this morning. (Mayra White MD R3) Objective Vitals Vital Signs Date Time Temp Pulse Resp B/P (MAP) Pulse Ox O2 Delivery O2 Flow Rate FiO2 03/24/17 09:10 40 03/24/17 08:16 100 40 03/24/17 08:00 98.4 74 13 148/97 (114) 100 03/24/17 08:00 74 03/24/17 08:00 100 Mechanical Ventilator 40 Trach Collar 03/24/17 08:00 40 03/24/17 06:00 95 03/24/17 04:19 99 40 03/24/17 04:15 40 03/24/17 04:00 98.7 82 19 158/99 (118) 98 03/24/17 04:00 87 03/24/17 02:00 78 03/24/17 00:52 100 40 03/24/17 00:00 40 03/24/17 00:00 70 03/24/17 00:00 98.8 72 16 158/99 (118) 100 03/23/17 22:00 74 03/23/17 21:35 100 40 03/23/17 20:00 98.7 84 16 143/93 (110) 100 03/23/17 20:00 81 03/23/17 20:00 40 03/23/17 19:00 100 Mechanical Ventilator 40 Trach Collar 03/23/17 18:00 40 03/23/17 18:00 93 03/23/17 16:46 100 40 03/23/17 16:00 98.6 116 26 135/87 (103) 100 03/23/17 16:00 40 03/23/17 16:00 116 03/23/17 14:00 102 03/23/17 14:00 40 I/O 03/23/17 03/23/17 03/23/17 03/24/17 03/24/17 03/24/17 07:00 15:00 23:00 07:00 15:00 23:00 Intake Total 1007 ml 1130 ml 790 ml Output Total 1000 ml 1100 ml 1075 ml Balance 7 ml 30 ml -285 ml Tube Feeding 667 ml 730 ml 590 ml Tube Irrigant 60 ml Other 340 ml 340 ml 200 ml Output Urine Total 1000 ml 1100 ml 975 ml Gastric Drainage Total 100 ml # Bowel Movements 2 6 0 (Mayra White MD R3) Result Diagram: 03/21/17 0414 03/23/17 0335 Objective Remarks GENERAL: male, lying in bed on vent to trach and eyes open and tracking, and following commands, seems to be trying to tell us something. Patient leaning slightly to his left. SKIN: Bilateral upper extremities with multiple well-healing scabs on right arm. HEENT: On trach to vent. Pupils grossly symmetrical and reactive. Sclera injected bilaterally. CARDIOVASCULAR: RRR without appreciable murmurs. grossly normal perfusion. No edema RESPIRATORY: normal rate; decreased breath sounds on the left, similar to previous exams, without wheezing GASTROINTESTINAL: Abdomen soft, non-distended, non-tender MUSCULOSKELETAL: no cyanosis, no edema. No calf tenderness. NEURO: Patient is awake and alert this morning. His eyes are open and he is able to track with his eyes. He is able to follow verbal commands. He is disoriented to person, place, time, situation. Procedures * 03/20/17 -Bronchoscopy & Tracheostomy placement * 03/20/17 -Reintubation * 03/19/17 -Extubated * 03/18/17 -Bronchoscopy * 03/15/17 -bronchoscopy * 03/12/17 -reintubated * 03/12/17 -medical extubated * 03/09/17 -endotracheal Intubation * 03/09/17 -Bronchoscopy (Mayra White MD R3) Date of Insertion: Feb 23, 2017 (Mayra White MD R3) A/P Assessment and Plan 57-year-old white male with past medical history of alcohol withdrawal presented to the ED with severe hypoglycemia and altered mental status; patient has had progressively worsening renal function and is currently being followed for renal failure and continued altered mental status. Pt recently required intubation and sedation for respiratory distress and imaging with opacification of the left lung concerning for left lung collapse in the context of mucus plugging, which was removed on 03/09 and again on 03/18 and again on 03/20. Patient has been reintubated multiple times. Tracheostomy on 03/20. Discharge Planning Pending workup for declining renal function, AMS, weaning off vent. Working on plan of care with case management rn and palliative care social welfare research worker. While patient was briefly awake and alert, the ecclesiastical worker clarified his code status. He is currently full code. (Mayra White MD R3) Attending Attestation Pt. examined and case discussed with resident physicians. I have read the above note and agree with the assessment and plan as discussed with me. I was involved in all medical decision making for this patient. Aris Martinez MD (Aris Martinez MD) Problem List: (1) Altered mental status ICD Codes: R41.82 - Altered mental status, unspecified Status: Acute Plan: Patient on vent to trach. At this point the patient is still full code and had consented to tracheostomy, which was done on 03/20/17. Pt does not have capacity to make his own treatment decisions per psychiatry evaluation. -Seroquel 5 mg daily for agitation -IV solumedrol q12h -CPT -Continue treatment of chronic alcoholism -Continue PO multivitamin -PO thiamine -Occupational therapy recommended OT at rehabilitation (PT recommended OT). -PT, OT, ST -Continue tube feeds at 55ml/hr and 1L of free water per dietary; Seizure precautions Impression: AMS initially suspected secondary to alcoholism or polysubstance abuse; persistent. could be anoxic brain injury from hypoglycemia (2) Respiratory disease ICD Codes: J98.9 - Respiratory disorder, unspecified Status: Acute Plan: Patient re-intubated on 03/20/17. Patient tolerated TPs trials as well as CPAP yesterday. Stable respiratory exam.. -Chest x-ray 03/23 : L basilar atelectasis -Rn Telehealth consulted and appreciated -See plan above -Continue breathing treatments, O2 per CC/respiratory therapy -Mucomyst -Levsin for secretions -CPT -Bronchial washing cultures negative. 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 Thus, patient may be unable to protect airway. Patient with repeated mucous plugging and lung collapses on imaging. Thick secretions likely due to undiagnosed COPD. (3) SAQIB (acute kidney injury) ICD Codes: N17.9 - Acute kidney failure, unspecified Status: Acute Plan: -Nephrology consulted: Diagnosed with Acute renal failure acute tubular necrosis with drug use, Non oliguric, creatinine is stable. -Monitor BMP -Bumex 1mg q12h (4) Hypertension ICD Codes: I10 - Essential (primary) hypertension Status: Chronic Plan: -Hold Amlodipine 10mg PO daily -Hold Hydralazine 25 mg q12h since hypotension -Hydralazine 20 mg IV push every hour when necessary for blood pressure over 160 /90 -Labetalol 20 mg IV push every 4 hours when necessary for systolic blood pressure over 160 -Metoprolol 25 mg q12h -Clonidine 0.1 mg q6h PRN For SBP >/= 170, DBP >/= 100 -Maintain MAP > 65 mmHG -Bumex as above Impression: BPs stable (5) FEN Status: Acute Plan: Fluids: none Electrolytes: Monitor and replace per protocol Nutrition: Tube feeds with free water, We cannot do swallow study to evaluate for PO until 7 days post-trach (03/27) GI PPx: Lansoprazole 30 mg NG/day VTE prophylaxis: Heparin 5000 units every 12 hours and SCDs (Mayra White MD R3) Problem Qualifiers (1) Altered mental status: Qualified Codes: R41.0 - Disorientation, unspecified (2) Hypertension: Qualified Codes: I10 - Essential (primary) hypertension Mayra White MD R3 Mar 24, 2017 12:05 Aris Martinez MD Mar 24, 2017 15:56
[2017-03-24 13:40] LABS: BICARBONATE 32.2 MEQ/L (21.0-32.0); POTASSIUM 4.3 MEQ/L (3.5-5.1)
--- NOTE | 2017-03-24 14:37 | HHI.NPPN ---
Subjective History of Present Illness 57-year-old male with the alcohol withdrawal, altered mental status, acute renal failure Additional Remarks Intubated with trach, no signs of distress Objective Data Data Vital Signs Date Time Temp Pulse Resp B/P (MAP) Pulse Ox O2 Delivery O2 Flow Rate FiO2 03/24/17 12:11 93 40 03/24/17 09:10 40 03/24/17 08:16 100 40 03/24/17 08:00 98.4 74 13 148/97 (114) 100 03/24/17 08:00 74 03/24/17 08:00 100 Mechanical Ventilator 40 Trach Collar 03/24/17 08:00 40 03/24/17 06:00 95 03/24/17 04:19 99 40 03/24/17 04:15 40 03/24/17 04:00 98.7 82 19 158/99 (118) 98 03/24/17 04:00 87 03/24/17 02:00 78 03/24/17 00:52 100 40 03/24/17 00:00 40 03/24/17 00:00 70 03/24/17 00:00 98.8 72 16 158/99 (118) 100 03/23/17 22:00 74 03/23/17 21:35 100 40 03/23/17 20:00 98.7 84 16 143/93 (110) 100 03/23/17 20:00 81 03/23/17 20:00 40 03/23/17 19:00 100 Mechanical Ventilator 40 Trach Collar 03/23/17 18:00 40 03/23/17 18:00 93 03/23/17 16:46 100 40 03/23/17 16:00 98.6 116 26 135/87 (103) 100 03/23/17 16:00 40 03/23/17 16:00 116 -: 03/21/17 0414 03/24/17 1258 Physical Exam General Appearance: Malnourished Eyes Eye Exam: Pupils Equal Throat Throat Exam: Oral Mucosa [place] & Moist Neck Neck Exam: Neck Supple Pulmonary Resp Exam: Crackles, Rhonchi, Decreased Bases, Diminished Breath Sounds Cardiology CV Exam: Regular, Normal Sinus Rhythm Gastrointestinal/Abdomen GI Exam: Soft, Non-Tender, Bowel Sounds Present Extremeties Extremities Exam: Trace Edema Neurologic Neuro Exam: Obtunded Assessment/Plan Problem List: (1) SAQIB (acute kidney injury) ICD Codes: N17.9 - Acute kidney failure, unspecified Status: Acute Plan: Acute renal failure acute tubular necrosis with drug use S/P trach. Creatinine slightly improved: 2.7-> 2.3 Good UOP on bumex 1mg IV q12 - continue for now Hepatitis C positive Ammonia not high s/p bronchoscopy with removal of mucous plug self extubated, multiple re intubations, now has Trach CT scan abdominal reviewed Subtle high density stranding medial/upper right kidney. Abnormal mass arising from/abutting spleen LUQ measuring up to 7.5 cm with small amount of calcification. FIDEL is positive 1:80, low titre. ANCA negative patient very weak will wait to see if feels better Trach collar O2 (2) Alcohol withdrawal ICD Codes: F10.239 - Alcohol dependence with withdrawal, unspecified Status: Chronic Plan: Patient remained in altered mental status (3) Hypertension ICD Codes: I10 - Essential (primary) hypertension Status: Chronic Plan: Patient's blood pressure was labile continue to monitor Problem Qualifiers (1) Alcohol withdrawal: Qualified Codes: F10.231 - Alcohol dependence with withdrawal delirium (2) Hypertension: Qualified Codes: I10 - Essential (primary) hypertension Cliff Painter MD Mar 24, 2017 14:37
[2017-03-25] VITALS (15 sets, daily range): BP systolic 125–137; BP diastolic 79–90; PULSE 70–100; RESP 13–24; TEMP 98.1–99.2; O2SAT 95–100
[2017-03-25] MEDS: RESP: ALBUTEROL 2.5 MG/IPRATROPIUM 0.5 MG NEB (SCH) NEB ×5 (04:09→20:32)
[2017-03-25 04:39] LABS: HEMATOCRIT 30.8 % (39.0-51.0); MEAN CELL VOLUME 100.9 FL (80.0-100.0); MEAN CORPUSCULAR HEMOGLOBIN 34.5 PG (27.0-34.0); MEAN CORPUSCULAR HGB CONC 34.2 % (32.0-36.0); PLATELET COUNT 106 TH/MM3 (150-450); RED BLOOD COUNT 3.05 MIL/MM3 (4.50-5.90); RED CELL DISTRIBUTION WIDTH 13.9 % (11.6-17.2); REVIEW FLAG FINAL; WHITE BLOOD COUNT 10.4 TH/MM3 (4.0-11.0)
[2017-03-25 04:57] LABS: BICARBONATE 32.4 MEQ/L (21.0-32.0); POTASSIUM 4.3 MEQ/L (3.5-5.1)
--- NOTE | 2017-03-25 05:33 | RADRPT ---
EXAM DATE/TIME: 03/25/2017 03:38 [facility] COMPARISON: CHEST SINGLE AP, March 23, 2017, 5:11. INDICATIONS : Respiratory failure/ AMS MEDICAL HISTORY : Hepatitis C. Myocardial infarction. SURGICAL HISTORY : None. ENCOUNTER: Subsequent ACUITY: 3 weeks PAIN SCORE: Non-responsive. LOCATION: Bilateral chest FINDINGS: A single view of the chest demonstrates tracheostomy in good position. Nasogastric tube enters stomac h. Basilar airspace disease, left greater than right and small left effusion unchanged from March 23. No pneumothorax. CONCLUSION: 1. Tracheostomy and nasogastric tube unchanged. Basilar airspace disease and pleural effusions, left greater than right unchanged from March 23. Ruy Hussein MD on March 25, 2017 at 5:29 Board Certified Radiologist. This report was verified electronically.
[2017-03-25] MEDS: ARTIFICIAL TEARS OPTH SOLN 15 ML BTL EACH EYE SCH ×3 (06:00→22:00)
[2017-03-25] MEDS: FREE WATER G-TUBE SCH ×3 (06:00→22:00)
[2017-03-25] MEDS: CHLORHEXIDINE 0.12% (ORAL KIT) 15 ML CUP MT SCH ×4 (08:00→20:00)
[2017-03-25] MEDS: methylPREDNISolone SOD SUCC 125 MG/2 ML VIAL IV PUSH SCH ×2 (08:20→20:14)
[2017-03-25] MEDS: BUMETANIDE INJ 1 MG/4 ML VIAL IV PUSH SCH ×2 (08:20→17:02)
[2017-03-25] MEDS: METOPROLOL TARTRATE 25 MG TAB PO SCH ×2 (08:21→20:14)
[2017-03-25] MEDS: MULTIVITAMIN TAB PO SCH (08:21)
[2017-03-25] MEDS: QUEtiapine FUMARATE 25 MG TAB PO SCH (08:21)
[2017-03-25] MEDS: LANSOPRAZOLE SOLUTAB 30 MG TAB NG SCH (08:21)
[2017-03-25] MEDS: SODIUM CHLORIDE 0.9% FLUSH 10 ML FLUSH IV FLUSH SCH ×2 (08:21→20:13)
[2017-03-25] MEDS: THIAMINE HCL 100 MG TAB PO SCH (08:21)
[2017-03-25] MEDS: BENEPROTEIN POWDER 1 PACK G-TUBE SCH ×3 (08:21→17:02)
[2017-03-25] MEDS: TIOTROPIUM BROMIDE 18 MCG INH INH SCH (09:00)
[2017-03-25] MEDS: BUDESONIDE-FORMOTEROL 160/4.5 MCG INHALER INH SCH ×2 (09:00→21:00)
--- NOTE | 2017-03-25 11:22 | HHI.FPPN ---
Subjective Remarks Patient became agitated overnight, was started on low dose Seroquel. The patient successfully underwent T piece trials as well as CPAP trials. Psychiatry was consulted and the patient was deemed not to have any decision- making capacity and sister continues to be the healthcare surrogate for the patient. Yesterday a female individual entered into the room and stated that she was the patient's . Palliative care was re-consulted as well as case management to follow-up if the individual is the patient's next of kin and can help clarify goals of care. The patient's sister states she was unaware that the patient was . Patient is lying in bed asleep, but he opens his eyes to voice. Objective Vitals Vital Signs Date Time Temp Pulse Resp B/P (MAP) Pulse Ox O2 Delivery O2 Flow Rate FiO2 03/25/17 09:24 40 03/25/17 08:06 96 40 03/25/17 06:00 70 03/25/17 04:09 97 40 03/25/17 04:00 88 03/25/17 04:00 40 03/25/17 04:00 88 23 137/90 (106) 95 03/25/17 02:00 89 03/25/17 00:00 99.2 72 20 131/79 (96) 99 03/25/17 00:00 72 03/25/17 00:00 40 03/24/17 23:50 99 40 03/24/17 22:00 40 03/24/17 22:00 72 03/24/17 20:14 100 40 03/24/17 20:00 40 03/24/17 20:00 98.6 80 13 147/87 (107) 99 03/24/17 20:00 80 03/24/17 19:00 100 Mechanical Ventilator 40 Trach Collar 03/24/17 18:00 94 03/24/17 17:18 100 40 03/24/17 16:33 100 40 03/24/17 16:00 98.9 102 29 149/99 (116) 99 03/24/17 16:00 40 03/24/17 16:00 102 03/24/17 14:50 93 T-piece 6.00 40 03/24/17 14:00 94 03/24/17 12:11 93 40 03/24/17 12:00 40 03/24/17 12:00 86 03/24/17 12:00 97.9 86 25 122/91 (101) 95 I/O 03/24/17 03/24/17 03/24/17 03/25/17 03/25/17 03/25/17 07:00 15:00 23:00 07:00 15:00 23:00 Intake Total 790 ml 2324 ml 919 ml Output Total 1075 ml 3000 ml 1500 ml Balance -285 ml -676 ml -581 ml Tube Feeding 590 ml 1516 ml 319 ml Tube Irrigant 120 ml Other 200 ml 688 ml 600 ml Output Urine Total 975 ml 3000 ml 1500 ml Gastric Drainage Total 100 ml # Voids 3 # Bowel Movements 0 8 1 Result Diagram: 03/25/17 0404 03/25/17 0404 Imaging Last Impressions Chest X-Ray 03/23/17 0600 Signed Impressions: Service Date/Time: Thursday, March 23, 2017 05:11 - CONCLUSION: 1. Basilar airspace disease, left greater than right. No pneumothorax. Ruy Hussein MD Abdomen X-Ray 03/13/17 0000 Signed Impressions: Service Date/Time: Monday, March 13, 2017 13:04 - CONCLUSION: 1. The tip of the NG tube is just through the GE junction and into the stomach. Cliff Mack MD Brain MRI 03/10/17 0000 Signed Impressions: Service Date/Time: Friday, March 10, 2017 15:01 - CONCLUSION: No acute infarct or other acute intracranial abnormality. Atrophy and chronic white matter changes are again noted. Kilo Rowell MD Chest CT 03/09/17 0000 Signed Impressions: Service Date/Time: Thursday, March 09, 2017 04:59 - CONCLUSION: 1. Marked volume loss in the left hemithorax with near-complete collapse of the left lower lobe/lingula. There is still some aeration in the left upper lung. Some of this is due to the moderate sized left-sided effusion although there may be element of airway obstruction/mucus plugging as well. 2. Small right-sided effusion with become atelectatic changes in the right base. 3. Patchy biapical airspace disease.. Tone Henry MD Shoulder X-Ray 03/05/17 0000 Signed Impressions: Service Date/Time: Sunday, March 05, 2017 20:57 - CONCLUSION: No acute disease. Rick Sanford MD Abdomen/Pelvis CT 03/04/17 0000 Signed Impressions: Service Date/Time: Saturday, March 04, 2017 10:31 - CONCLUSION: 1. There is no hydronephrosis or renal abnormality to explain the renal failure. However, there is subtle high density stranding along the medial and upper pole of the right kidney. Suggest followup CT to assess for change. 2. Abnormal mass arising from or abutting the spleen in the left upper quadrant measuring up to 7.5 cm. It contains a small amount of calcification. Suggest correlating with any prior imaging study that could offer additional characterization. If none are available suggest followup imaging to confirm stability and consider contrast enhanced CT or MRI for further characterization when patient condition permits. 3. Small bilateral pleural effusions, left larger than right, with associated compressive atelectasis. 4. Severe coronary artery calcification. Kilo Coulter MD Renal Ultrasound 02/27/17 0000 Signed Impressions: Service Date/Time: Monday, February 27, 2017 20:36 - CONCLUSION: 1. Mildly dilated left renal collecting system. Kidneys normal in size. Trace free fluid. Ruy Hussein MD Head CT 02/23/17 0000 Signed Impressions: Service Date/Time: Thursday, February 23, 2017 07:38 - CONCLUSION: No significant change has occurred. Maximus Pavon MD Objective Remarks GENERAL: Patient is lying in bed asleep, but he opens his eyes to voice. . Patient leaning to his left. SKIN: Bilateral upper extremities with multiple well-healing scabs on right arm. HEENT: On trach to vent. Pupils grossly symmetrical and reactive. Sclera injected bilaterally. CARDIOVASCULAR: RRR without appreciable murmurs. grossly normal perfusion. No edema RESPIRATORY: normal rate; decreased breath sounds on the left, similar to previous exams, without wheezing GASTROINTESTINAL: Abdomen soft, non-distended, non-tender GENITOURINARY: catheter draining clear yellow urine MUSCULOSKELETAL: no cyanosis, no edema. No calf tenderness. NEURO: Patient is lying in bed asleep, but he opens his eyes to voice. Procedures * 03/20/17 -Bronchoscopy & Tracheostomy placement * 03/20/17 -Reintubation * 03/19/17 -Extubated * 03/18/17 -Bronchoscopy * 03/15/17 -bronchoscopy * 03/12/17 -reintubated * 03/12/17 -medical extubated * 03/09/17 -endotracheal Intubation * 03/09/17 -Bronchoscopy Date of Insertion: Feb 23, 2017 A/P Assessment and Plan 57-year-old white male with past medical history of alcohol withdrawal presented to the ED with severe hypoglycemia and altered mental status; patient has had progressively worsening renal function and is currently being followed for renal failure and continued altered mental status. Pt recently required intubation and sedation for respiratory distress and imaging with opacification of the left lung concerning for left lung collapse in the context of mucus plugging, which was removed on 03/09 and again on 03/18 and again on 03/20. Patient has been reintubated multiple times. Tracheostomy on 03/20. Discharge Planning Pending workup for declining renal function, AMS, weaning off vent. Working on plan of care with family service caseworker and palliative care social services assistant. While patient was briefly awake and alert, the clinical psychiatrist clarified his code status. Psychiatry consulted and determined that patient does not have decision- making capacity. We are attempting to clarify goals of care with his sister and possibly . He is currently full code. Problem List: (1) Altered mental status ICD Codes: R41.82 - Altered mental status, unspecified Status: Acute Plan: Patient on vent to trach. At this point the patient is still full code and had consented to tracheostomy, which was done on 03/20/17. Pt does not have capacity to make his own treatment decisions per psychiatry evaluation. -Seroquel 25 mg daily for agitation -IV solumedrol q12h -CPT -Continue treatment of chronic alcoholism -Continue PO multivitamin -PO thiamine -Occupational therapy recommended OT at rehabilitation (PT recommended OT). -PT, OT, ST -Continue tube feeds at 55ml/hr and 1L of free water per dietary; Seizure precautions Impression: AMS initially suspected secondary to alcoholism or polysubstance abuse; persistent. could be anoxic brain injury from hypoglycemia (2) Respiratory disease ICD Codes: J98.9 - Respiratory disorder, unspecified Status: Acute Plan: Patient re-intubated on 03/20/17. Patient tolerated TPs trials as well as CPAP yesterday. Stable respiratory exam.. -Chest x-ray 03/23 : L basilar atelectasis -Glove Maker consulted and appreciated -See plan above -Continue breathing treatments, O2 per CC/respiratory therapy -Mucomyst -Levsin for secretions -CPT -Bronchial washing cultures negative. 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 Thus, patient may be unable to protect airway. Patient with repeated mucous plugging and lung collapses on imaging. Thick secretions likely due to undiagnosed COPD. (3) SAQIB (acute kidney injury) ICD Codes: N17.9 - Acute kidney failure, unspecified Status: Acute Plan: -Nephrology consulted: Diagnosed with Acute renal failure acute tubular necrosis with drug use, Non oliguric, creatinine is stable. -Monitor BMP -Bumex 1mg IV q12h (4) Hypertension ICD Codes: I10 - Essential (primary) hypertension Status: Chronic Plan: -Hold Amlodipine 10mg PO daily -Hold Hydralazine 25 mg q12h since hypotension -Hydralazine 20 mg IV push every hour when necessary for blood pressure over 160 /90 -Labetalol 20 mg IV push every 4 hours when necessary for systolic blood pressure over 160 -Metoprolol 25 mg q12h -Clonidine 0.1 mg q6h PRN For SBP >/= 170, DBP >/= 100 -Maintain MAP > 65 mmHG -Bumex as above Impression: BPs stable (5) FEN Status: Acute Plan: Fluids: none Electrolytes: Monitor and replace per protocol Nutrition: Tube feeds with free water, We cannot do swallow study to evaluate for PO until 7 days post-trach (03/27) GI PPx: Lansoprazole 30 mg NG/day VTE prophylaxis: Heparin 5000 units every 12 hours and SCDs Problem Qualifiers (1) Altered mental status: Qualified Codes: R41.0 - Disorientation, unspecified (2) Hypertension: Qualified Codes: I10 - Essential (primary) hypertension Anderson Matt MD R2 Mar 25, 2017 11:22
[2017-03-25] MEDS: HEPARIN SODIUM - SQ 10,000 UNITS/ML VIAL SQ SCH ×2 (11:23→22:00)
--- NOTE | 2017-03-25 12:54 | HHI.CCPN ---
Subjective Remarks/Hospital Course This is a 57-year-old male that was found down and admitted to this hospital 02/23/2017. Urine tox screen revealed patient was positive for benzodiazepines and cocaine at that time. Since admission the patient has been on a [facility] protocol, neurology has been consulted Dr. Wayne, with continued supportive care. Over the last 48 hours the patient was noted to have elevation in his creatinine with a significant decrease in urine output acute renal failure nephrology was consulted the patient continues on gentle diuresis and received 80 mg of Lasix IV this afternoon and is currently on sodium bicarbonate infusion at 110 cc/an hour. Due to the patient's respiratory insufficiency, and altered mental status concern for possible continued respiratory decompensation the patient was transferred to the ICU, and critical care was consulted for management. Upon entering the patient's room the patient was noted to be lethargic having received 4 mg of Ativan in the last 4 hours, but opens eyes to sternal rub. The patient was noted to have O2 saturation of 95% on O2 via nasal cannula at 5 L with no accessory respiratory efforts. Stat ABG was ordered pending, to rule out CO2 narcosis. Since admission to ICU the patient was noted to diuresis of 700 cc. 03/03: Afebrile. The patient did not receive any Ativan since 3 PM on 03/02/17. The patient rested well overnight, eventually waking and responding. This a.m. the patient's noted to be sitting up in bed, alert and responsive. Librium has been added to medication regimen for alcohol withdrawal. Noted to be oriented to date of unable to provide name or place at this time. Essential tremors, fine tremors noted. The patient severely weak and unable to feed self without assistance. The patient's diet was advanced to regular diet, tolerating well, 100% consumption. PO meds were held since admission to ICU secondary to lethargy, all by mouth meds resumed this a.m.. The patient currently is compliant following commands, inappropriate responses, with noted incomprehensible words, language at times. Patient is noted to be very weak. Nasal cannula O2 has been weaned down to approximately 3 L, the patient appears in no respiratory distress. Subjective: 03/09: Reconsulted secondary acute respiratory failure. Chest x-ray earlier in the morning revealed collapse versus large pleural effusion left side. Patient oxygen requirements had increased from 4 L to a nonrebreather mask. CT thorax revealed likely mucous plugging/collapsed lung left side. Small to moderate left pleural effusion. Patient was combative upon arrival ICU in place in soft restraints. Due to mental status/mucous plugging patient was electively intubated using 20 mg etomidate and 50 mg, rocuronium. Patient was bronched which revealed thick white mucous plugging in the left and right mainstem. These were lavaged to left upper lobe/lingula and left lower lobe, right upper middle and lower lobes. Samples were sent see orders. Currently sedated with propofol and fentanyl drips. 03/10: Tonic seizures today when propofol stopped. Seizures ceased with propofol bolus. Left pneumonia persists but improved aeration after bronch . 03/11: Gas exchange acceptable. Continues to have tonic "seizures" when propofol is lightened. EEG 03/10 states no seizures but we will repeat EEG again today with stimulation and off propofol. Can't extubate until this "seizure" activity is resolved. Vomited tube feeds, will reduce and add reglan. 03/12: Off sedation tolerating CPAP even though intermittently apneic. Appears to follows commands but weekly on the upper extremity. No obvious seizures. EEG negative for seizure 03/11/17. Creatinine slightly improved to 2.8 from 3 03/13: Failed extubation on 03/12. Currently sedated, orally intubated on mechanical ventilation. Has thick copious respiratory secretions per [facility]. 03/14: Remains sedated, orally intubated on mechanical ventilation. Feeling C Pap trials. Not following commands on lightening sedation. 03/15: Remains intubated encephalopathy. Left lower lobe infiltrate again indicating probable mucous plugging/collapse. Palliative care meeting with family today. I recommend tracheostomy and PEG tube placement. D/W palliative care team 03/16: Off sedation since yesterday 5PM. Eyes open spontaneously. Following commands bilateral upper extremity, he squeezes with both hands. Discussed with Dr. Kingston. Will continue weaning attempt with plan for wean to extubate. s/p bronchoscopy yesterday, with re expansion of L lung. Has moderate secretions. I have updated Lore Darling (sister) about improvement in neuro exam. See below 03/17: Tolerated CPAP 7 hours yesterday. Currently on CPAP. Lethargic/somnolent but follows commands, gives thumbs up on bilateral UE. Creat stable. UO 750 ml in 24 hours. BAL negative to date 03/18: Remains intubated off sedation. There is further improvement in neuro exam, able to move both feet to command, gives thumbs up on both upper extremities. Chest x-ray shows complete white out of the left lung field. We' ll plan for emergency bronchoscopy 03/19: Extubated yesterday, overnight appeared to be having mucus plugging involving L lung. But currently patient is saturating well. He somnolent but wakes up easily and nodding appropriately and following commands, in the bilateral upper extremity 03/20: Today around 5.30 AM, patient acutely became hypoxemic with diminished breath sounds on the left lung field. Placed on nonrebreather clinical exam was consistent with left lower lobe mucus plugging according to Dr. Chadwick. With aggressive suctioning and Mucomyst and DuoNeb breathing treatments, patient 's air entry and saturation improved slightly. Currently on 100% nonrebreather oxygen saturation 90-92% tachypneic but not in severe distress. I discussed tracheostomy with the patient, witnessed by RN Aniket and Dixie. I explained to him that If he gets reintubated he will need tracheostomy due to frequent mucus plugging, with left lung collapse. Patient understands tracheostomy procedure, and wants tracheostomy done in case of reintubation. 03/21: Re intubated yesterday for LLL collapse. Tracheostomy performed yesterday afternoon. Difficult bronchoscopy with therapeutic bronchoscope and multiple attempts to remove the mucus plugging because of the very thick tenacious nature of the plugs. Continue breathing treatments Mucomyst for now. Chest percussion with speciality bed. 03/22: The patient tolerated trach collar trials approximately 1 hour yesterday. The patient continues to have thick secretions, aggressive pulmonary toileting continues with chest percussion. Today the patient indicated that he wanted to be placed back on DNR status. Discussion with family medicine primary service team for cognitive evaluation by psychiatry to assess competency in making this decision. Will continue care as planned, overweight recommendations from psychiatry and palliative medicine. Will hold medication for agitation until assessment is performed, and continue supportive care. 03/23: Acute events overnight. Patient tolerated T piece trials for approximately 5 hours yesterday. Psychiatry consulted seen today. The patient was deemed not competent, full report pending. 03/24: Patient became agitated during the night received 2 doses of Ativan which were ineffective Seroquel added to medication regimen low dose. The patient successfully underwent T piece trials for 6.5 hours yesterday as well as CPAP for 3 hours. Psychiatry was consulted and the patient was deemed not to have any decision-making capacity and sister continues to be the healthcare surrogate for the patient. Yesterday a female individual into the room and stated that she was the patient's palliative care was re-consulted as well as case management to follow-up if the individual is the patient's next of kin. The patient's sister states she was unaware that the patient was . 03/25: Patient noted to be less agitated today Seroquel was initiated yesterday. Patient tolerated T piece trials for approximately 4 hours yesterday. Creatinine improving today. Objective Vital Signs Date Time Temp Pulse Resp B/P (MAP) Pulse Ox O2 Delivery O2 Flow Rate FiO2 03/25/17 12:00 99 40 03/25/17 06:00 70 03/25/17 04:00 23 137/90 (106) 03/25/17 00:00 99.2 03/24/17 19:00 Mechanical Ventilator Trach Collar 03/24/17 14:50 6.00 Intake and Output 03/25/17 03/25/17 03/26/17 08:00 16:00 00:00 Intake Total 919 ml Output Total 1500 ml Balance -581 ml Result Diagram: 03/25/17 0404 03/25/17 0404 Imaging Last Impressions Shoulder X-Ray 03/05/17 0000 Signed Impressions: Service Date/Time: Sunday, March 05, 2017 20:57 - CONCLUSION: No acute disease. Rick Sanford MD Abdomen/Pelvis CT 03/04/17 0000 Signed Impressions: Service Date/Time: Saturday, March 04, 2017 10:31 - CONCLUSION: 1. There is no hydronephrosis or renal abnormality to explain the renal failure. However, there is subtle high density stranding along the medial and upper pole of the right kidney. Suggest followup CT to assess for change. 2. Abnormal mass arising from or abutting the spleen in the left upper quadrant measuring up to 7.5 cm. It contains a small amount of calcification. Suggest correlating with any prior imaging study that could offer additional characterization. If none are available suggest followup imaging to confirm stability and consider contrast enhanced CT or MRI for further characterization when patient condition permits. 3. Small bilateral pleural effusions, left larger than right, with associated compressive atelectasis. 4. Severe coronary artery calcification. Kilo Coulter MD Chest X-Ray 03/02/17 0000 Signed Impressions: Service Date/Time: Thursday, March 02, 2017 08:18 - CONCLUSION: Increasing consolidative changes left base. Nasir Mack MD FACR Renal Ultrasound 02/27/17 0000 Signed Impressions: Service Date/Time: Monday, February 27, 2017 20:36 - CONCLUSION: 1. Mildly dilated left renal collecting system. Kidneys normal in size. Trace free fluid. Ruy Hussein MD Brain MRI 02/25/17 0000 Signed Impressions: Service Date/Time: Saturday, February 25, 2017 12:37 - CONCLUSION: Atrophy, periventricular changes without evidence for acute infarction. Nasir Mack MD FACR Head CT 02/23/17 0000 Signed Impressions: Service Date/Time: Thursday, February 23, 2017 07:38 - CONCLUSION: No significant change has occurred. Maximus Pavon MD Objective Remarks GENERAL: 57-year-old male, awake alert currently on CPAP trials in no distress SKIN: Warm and dry. HEAD: Atraumatic. Normocephalic. EYES: Pupils equal and round around 2 mm bilaterally and reactive. No scleral icterus. No injection or drainage. ENT: No nasal bleeding or discharge. Oral cavity is moist . Tracheostomy site without erythema or drainage NECK: Trachea midline. CARDIOVASCULAR: RRR, tachycardic. S1, S2 no S4. Without murmur. No JVD. RESPIRATORY: Diminished breath sounds left lung thomas. Few coarse rhonchi. Bilateral course crackles GASTROINTESTINAL: Abdomen soft, non-tender, nondistended. Active bowel sounds appreciated MUSCULOSKELETAL: Extremities without without significant peripheral edema. No obvious deformities. Right forearm dressing NEUROLOGICAL: Awake alert oriented to person place and time, nodding appropriately to questions, and conversant. Follows commands bilateral upper and lower extremities. Moves extremities x 4 spontaneously. Date of Insertion: Feb 23, 2017 A/P Assessment and Plan Neuro/Psych: Encephalopathy/Delirium most likely metabolic Admission with EtOH withdrawal - likely completed Polysubstance abuse including cocaine and benzodiazepines Polyneuropathy of critical illness Agitation Improved neuro exam. Was following commands, oriented to person place and time before sedation for intubation and trach 03/20/17 Wean propofol and fentanyl as tolerated Patient is followed by Dr. Rogel neurology. EEG's reveal moderate encephalopathy no epileptiform activity. MRI negative for acute findings Previously on Seroquel 25 mg at night DCd and Haldol when necessary- discontinued 03/15/17 Librium DCd 03/15/17 Seizure precautions ?Seizures 03/10-EEG negative for seizures. Continue thiamine 100 mg daily Will hold all sedative medications, continue supportive care when patient's agitated. 03/23- cognitive evaluation by Dr. Sheriff -no decision-making capacity 03/24 Ativan discontinued, Seroquel 25 mg daily Respiratory: Acute hypoxemic respiratory failure secondary to aspiration Recurrent left lower lobe collapse/mucus plugging Complete opacification of left lung field due to mucus plugging 03/18/17 s/p tracheostomy 03/20/17 Status post extubation after therapeutic bronchoscopy 03/18/17 and reintubated for left lower lobe collapse on 03/20/17 s/p Tracheostomy 03/21/17. Difficult bronchoscopy with therapeutic scope and multiple attempts to remove very thick mucus plugs from left main bronchus. Continue breathing treatments Mucomyst for now. Chest percussion with speciality bed Patient wants to continue full code and also consented for tracheostomy if he gets reintubated. Witnessed by RNs Aniket and Dixie on 03/20/17 IV Solumedrol 60 q12 03/17/17, 03/24 begin weaning process to 40 mg every 12. Was on Symbicort and Spiriva CT thorax from 03/09 revealed collapse left upper/lingula lobes with significant secretions left main bronchus. s/p bronch Improved aeration 03/10 Continue attempts at T piece trials, aggressive pulmonary toileting Cardiovascular: Hypertension Fluid overload Amlodipine 10 mg daily, clonidine 0.1 mg 3 times a day and metoprolol 5 mg by mouth twice a day for hypertension, with holding parameters Use when necessary labetalol and hydralazine when patient is nothing by mouth Maintain MAP > 65 mmHG Bumex as below Renal: Acute kidney injury secondary to ATN Nephrology following Dr. Martinez. Creatinine 2.37->2.1 today. UOP 2017 in 24 hours Accurate I's and O's, Monitor urine output. Continue Hall catheter due to worsening renal failure Start scheduled Bumex 2 mg now and 1 mg every 12 hrs- 03/20/17 No signs of hydronephrosis on renal imaging, Urine eosinophils negative FEN/GI: Mild protein calorie malnutrition Hyperkalemia-resolved Hep C Continue tube feeds, hold off PEG tube as patient may be able to take PO diet once off vent Lansoprazole for GI prophylaxis Docusate sodium senna 1 tablet twice a day for bowel regimen. Diarrhea-repeat C. difficile antigen Free water deficit 1.2 L-decrease free water 250cc every 8 hours Follow-up BMP Heme/ID: Macro Anemia Thrombocytopenia Probable Pneumonia F/U BAL 03/15-neg to date On previous cultures in BAL have been negative except 02/23 coag negative staph which is contamination Cefepime discontinued 03/19/17, DCd Flagyl and azithromycin 03/09/17-03/15/17 Endocrine: Sliding-scale insulin to maintain euglycemia/low regimen with NovoLog every 6 hours Prophylaxis: GI Prophylaxis Lansoprazole DVT Prophylaxis SCDs/heparin subcutaneous Lines: Peripheral IVs providing adequate access at this time. Palliative care team following to assist with deciding goals of therapy Overall impression: Critically ill with acute respiratory deterioration from recurrent mucus plugging and hypoxemic respiratory failure. Intubated and trached 03/20/17 03/15/17: I discussed and updated Lore Darling (sister) over the phone: . I explained to her improvement in neurological status. She is agreeable to continued care since there is improvement, and she does not want any other invasive procedures at this time and if there is any further clinical deterioration she wants to pursue comfort measures. 03/24/17: Patient deemed by psychiatry not to have decision-making capacity. Sister Lore Darling currently is the patient's healthcare surrogate. Confirmation of healthcare surrogacy pending -requested by palliative medicine in case management as a person visited on 03/23, stating she is the patient's . This patient remains critically ill with one or more organ systems which are or may become a threat to life. I have spent in excess of 30 minutes discontinuously in the care and management of this patient. This time is exclusive of procedures, and includes, but is not limited to, evaluation of the patient, review of the medical record, discussions with family, consultants, nursing staff, or respiratory therapy, and documentation in the medical record. Physician Edie De La Fuente MD Mar 25, 2017 12:54
--- NOTE | 2017-03-25 14:28 | HHI.NPPN ---
Subjective History of Present Illness 57-year-old male with the alcohol withdrawal, altered mental status, acute renal failure Additional Remarks Intubated with trach, no signs of distress Objective Data Data Vital Signs Date Time Temp Pulse Resp B/P (MAP) Pulse Ox O2 Delivery O2 Flow Rate FiO2 03/25/17 12:00 99 40 03/25/17 09:24 40 03/25/17 08:06 96 40 03/25/17 06:00 70 03/25/17 04:09 97 40 03/25/17 04:00 88 03/25/17 04:00 40 03/25/17 04:00 88 23 137/90 (106) 95 03/25/17 02:00 89 03/25/17 00:00 99.2 72 20 131/79 (96) 99 03/25/17 00:00 72 03/25/17 00:00 40 03/24/17 23:50 99 40 03/24/17 22:00 40 03/24/17 22:00 72 03/24/17 20:14 100 40 03/24/17 20:00 40 03/24/17 20:00 98.6 80 13 147/87 (107) 99 03/24/17 20:00 80 03/24/17 19:00 100 Mechanical Ventilator 40 Trach Collar 03/24/17 18:00 94 03/24/17 17:18 100 40 03/24/17 16:33 100 40 03/24/17 16:00 98.9 102 29 149/99 (116) 99 03/24/17 16:00 40 03/24/17 16:00 102 03/24/17 14:50 93 T-piece 6.00 40 -: 03/25/17 0404 03/25/17 0404 Physical Exam General Appearance: Malnourished Eyes Eye Exam: Pupils Equal Throat Throat Exam: Oral Mucosa [place] & Moist Neck Neck Exam: Neck Supple Pulmonary Resp Exam: Crackles, Rhonchi, Decreased Bases, Diminished Breath Sounds Cardiology CV Exam: Regular, Normal Sinus Rhythm Gastrointestinal/Abdomen GI Exam: Soft, Non-Tender, Bowel Sounds Present Extremeties Extremities Exam: Trace Edema Neurologic Neuro Exam: Obtunded Assessment/Plan Problem List: (1) SAQIB (acute kidney injury) ICD Codes: N17.9 - Acute kidney failure, unspecified Status: Acute Plan: Acute renal failure acute tubular necrosis with drug use S/P trach. Creatinine slightly improved: 2.7-> 2.3 -> 2.1 Good UOP on bumex 1mg IV q12 - continue for now. 4.5L UOP/ 24 hours Hepatitis C positive Ammonia not high s/p bronchoscopy with removal of mucous plug self extubated, multiple re intubations, now has Trach CT scan abdominal reviewed Subtle high density stranding medial/upper right kidney. Abnormal mass arising from/abutting spleen LUQ measuring up to 7.5 cm with small amount of calcification. FIDEL is positive 1:80, low titre. ANCA negative patient very weak will wait to see if feels better Trach collar O2 (2) Alcohol withdrawal ICD Codes: F10.239 - Alcohol dependence with withdrawal, unspecified Status: Chronic Plan: Patient remained in altered mental status (3) Hypertension ICD Codes: I10 - Essential (primary) hypertension Status: Chronic Plan: Patient's blood pressure was labile continue to monitor Problem Qualifiers (1) Alcohol withdrawal: Qualified Codes: F10.231 - Alcohol dependence with withdrawal delirium (2) Hypertension: Qualified Codes: I10 - Essential (primary) hypertension Cliff Painter MD Mar 25, 2017 14:28
[2017-03-26] VITALS (16 sets, daily range): BP systolic 110–140; BP diastolic 77–95; PULSE 77–95; RESP 16–21; TEMP 98.5–99.3; O2SAT 96–100
[2017-03-26] MEDS: RESP: ALBUTEROL 2.5 MG/IPRATROPIUM 0.5 MG NEB (SCH) NEB ×7 (00:15→23:19)
[2017-03-26 04:41] LABS: BICARBONATE 33.5 MEQ/L (21.0-32.0); POTASSIUM 4.5 MEQ/L (3.5-5.1)
[2017-03-26] MEDS: ARTIFICIAL TEARS OPTH SOLN 15 ML BTL EACH EYE SCH ×3 (06:00→21:45)
[2017-03-26] MEDS: CHLORHEXIDINE 0.12% (ORAL KIT) 15 ML CUP MT SCH ×4 (08:00→21:42)
[2017-03-26 08:28] LABS: C. DIFF EPI 027 PRESUMPTIVE NEGATIVE (NEGATIVE)
--- NOTE | 2017-03-26 08:59 | HHI.FPPN ---
Subjective Remarks Afebrile vital signs stable overnight. Per nursing report, the day before yesterday he was on T-piece for 4 hours and then desatted to 50%. Yesterday, he was on CPAP for 4 hours, and then TPs for 7 hours. Today, he is on T piece while I am in the room. Per nursing report, patient seems to be less agitated but gets agitated around 4 AM, since he has been getting his morning Seroquel. The woman who called herself his has also called herself his fianc and girlfriend. Patient is currently full code after discussion with the sister that he seems to be improving. Objective Vitals Vital Signs Date Time Temp Pulse Resp B/P (MAP) Pulse Ox O2 Delivery O2 Flow Rate FiO2 03/26/17 08:10 96 T-piece 40 03/26/17 07:00 100 T-Piece 40 03/26/17 06:00 80 03/26/17 04:00 98.6 91 18 134/89 (104) 99 03/26/17 04:00 91 03/26/17 04:00 40 03/26/17 03:46 100 40 03/26/17 02:00 80 03/26/17 00:15 99 40 03/26/17 00:00 99.3 77 16 134/84 (101) 99 03/26/17 00:00 40 03/26/17 00:00 77 03/25/17 20:40 40 03/25/17 20:34 100 40 03/25/17 20:00 98.4 86 18 129/82 (98) 100 03/25/17 20:00 86 03/25/17 20:00 40 03/25/17 19:00 98 T-Piece 40 03/25/17 18:00 96 03/25/17 16:00 98.9 100 23 133/85 (101) 98 03/25/17 16:00 100 03/25/17 16:00 40 03/25/17 14:00 100 03/25/17 13:42 100 T-piece 6.00 40 03/25/17 12:00 99 40 03/25/17 12:00 98.1 85 24 134/89 (104) 100 03/25/17 12:00 85 03/25/17 12:00 40 03/25/17 10:00 72 03/25/17 09:24 40 I/O 03/25/17 03/25/17 03/25/17 03/26/17 03/26/17 03/26/17 07:00 15:00 23:00 07:00 15:00 23:00 Intake Total 919 ml 1284 ml 986 ml Output Total 1500 ml 1375 ml 1275 ml Balance -581 ml -91 ml -289 ml Tube Feeding 319 ml 674 ml 736 ml Other 600 ml 610 ml 250 ml Output Urine Total 1500 ml 1375 ml 1275 ml # Bowel Movements 1 2 2 Result Diagram: 03/25/17 0404 03/26/17 0348 Objective Remarks GENERAL: Patient is lying in bed asleep on T-piece on O2 to 6-7L/m, but he opens his eyes to voice and/or touch. Patient leaning to his left. SKIN: Bilateral upper extremities with multiple well-healing scabs on right arm. HEENT: On trach to vent. Pupils grossly symmetrical and reactive. Sclera injected bilaterally. CARDIOVASCULAR: RRR without appreciable murmurs. grossly normal perfusion. No edema RESPIRATORY: normal rate; decreased breath sounds on the left, similar to previous exams, without wheezing GASTROINTESTINAL: Abdomen soft, non-distended, non-tender GENITOURINARY: catheter draining yellow urine MUSCULOSKELETAL: no cyanosis, no edema. No calf tenderness. NEURO: Patient is lying in bed asleep, but he opens his eyes to voice. Procedures * 03/20/17 -Bronchoscopy & Tracheostomy placement * 03/20/17 -Reintubation * 03/19/17 -Extubated * 03/18/17 -Bronchoscopy * 03/15/17 -bronchoscopy * 03/12/17 -reintubated * 03/12/17 -medical extubated * 03/09/17 -endotracheal Intubation * 03/09/17 -Bronchoscopy Date of Insertion: Feb 23, 2017 A/P Assessment and Plan 57-year-old white male with past medical history of alcohol withdrawal presented to the ED with severe hypoglycemia and altered mental status; patient has had progressively worsening renal function and is currently being followed for renal failure and continued altered mental status. Pt recently required intubation and sedation for respiratory distress and imaging with opacification of the left lung concerning for left lung collapse in the context of mucus plugging, which was removed on 03/09 and again on 03/18 and again on 03/20. Patient has been reintubated multiple times. Tracheostomy on 03/20. Discharge Planning Pending workup for declining renal function, AMS, weaning off vent. Working on plan of care with hospice case manager and palliative care social services analyst. Psychiatry was consulted and determined that patient does not have decision- making capacity. We are attempting to clarify goals of care with his sister and possibly . He is currently full code. Problem List: (1) Altered mental status ICD Codes: R41.82 - Altered mental status, unspecified Status: Acute Plan: Patient on vent to trach. At this point the patient is still full code and had consented to tracheostomy, which was done on 03/20/17. Pt does not have capacity to make his own treatment decisions per psychiatry evaluation. -Seroquel 25 mg daily for agitation -IV solumedrol q12h -CPT -Continue treatment of chronic alcoholism -Continue PO multivitamin -PO thiamine -Occupational therapy recommended OT at rehabilitation (PT recommended OT). -PT, OT, ST -Continue tube feeds at 55ml/hr and 1L of free water per dietary; Seizure precautions Impression: AMS initially suspected secondary to alcoholism or polysubstance abuse; persistent. could be anoxic brain injury from hypoglycemia (2) Respiratory disease ICD Codes: J98.9 - Respiratory disorder, unspecified Status: Acute Plan: Patient re-intubated on 03/20/17. Patient tolerated T-piece trials as well as CPAP yesterday. Stable respiratory exam. -Continue T piece trials, pulmonary toilet -Chest x-ray 03/25: Bibasilar airspace disease and pleural effusion, left greater than right, unchanged from 03/23 -Food And Beverage Service Manager consulted and appreciated -See plan above -Continue breathing treatments, O2 per CC/respiratory therapy -Mucomyst, Chest percussion with speciality bed -Levsin for secretions -Bronchial washing cultures negative. -Wean Solumedrol Impression: Encephalopathic with likely [employer] damage from polysubstance abuse and/ or anoxic brain injury from hypoglycemia. Thus, patient may be unable to protect airway. Patient with repeated mucous plugging and lung collapses on imaging. Thick secretions likely due to undiagnosed COPD. (3) SAQIB (acute kidney injury) ICD Codes: N17.9 - Acute kidney failure, unspecified Status: Acute Plan: -Nephrology consulted: Diagnosed with Acute renal failure acute tubular necrosis with drug use, Non oliguric, creatinine is stable. -Monitor BMP -Bumex 1mg IV q12h (4) Hypertension ICD Codes: I10 - Essential (primary) hypertension Status: Chronic Plan: -Hold Amlodipine 10mg PO daily -Hold Hydralazine 25 mg q12h since hypotension -Hydralazine 20 mg IV push every hour when necessary for blood pressure over 160 /90 -Labetalol 20 mg IV push every 4 hours when necessary for systolic blood pressure over 160 -Metoprolol 25 mg q12h -Clonidine 0.1 mg q6h PRN For SBP >/= 170, DBP >/= 100 -Maintain MAP > 65 mmHG -Bumex as above Impression: BPs stable (5) FEN Status: Acute Plan: Fluids: none Electrolytes: Monitor and replace per protocol Nutrition: Tube feeds with free water, We cannot do swallow study to evaluate for PO until 7 days post-trach (03/27) GI PPx: Lansoprazole 30 mg NG/day VTE prophylaxis: Heparin 5000 units every 12 hours and SCDs Problem Qualifiers (1) Altered mental status: Qualified Codes: R41.0 - Disorientation, unspecified (2) Hypertension: Qualified Codes: I10 - Essential (primary) hypertension Anderson Matt MD R2 Mar 26, 2017 08:59
[2017-03-26] MEDS: FREE WATER G-TUBE SCH ×3 (09:30→21:45)
[2017-03-26] MEDS: TIOTROPIUM BROMIDE 18 MCG INH INH SCH (09:30)
[2017-03-26] MEDS: BENEPROTEIN POWDER 1 PACK G-TUBE SCH ×3 (09:30→17:02)
[2017-03-26] MEDS: SODIUM CHLORIDE 0.9% FLUSH 10 ML FLUSH IV FLUSH SCH ×2 (09:30→21:43)
[2017-03-26] MEDS: THIAMINE HCL 100 MG TAB PO SCH (09:30)
[2017-03-26] MEDS: METOPROLOL TARTRATE 25 MG TAB PO SCH ×2 (09:30→21:45)
[2017-03-26] MEDS: QUEtiapine FUMARATE 25 MG TAB PO SCH (09:30)
[2017-03-26] MEDS: BUDESONIDE-FORMOTEROL 160/4.5 MCG INHALER INH SCH ×2 (09:30→21:43)
[2017-03-26] MEDS: methylPREDNISolone SOD SUCC 125 MG/2 ML VIAL IV PUSH SCH ×2 (09:30→21:44)
[2017-03-26] MEDS: LANSOPRAZOLE SOLUTAB 30 MG TAB NG SCH (09:30)
[2017-03-26] MEDS: BUMETANIDE INJ 1 MG/4 ML VIAL IV PUSH SCH ×2 (09:30→17:03)
[2017-03-26] MEDS: MULTIVITAMIN TAB PO SCH (09:30)
[2017-03-26] MEDS: HEPARIN SODIUM - SQ 10,000 UNITS/ML VIAL SQ SCH ×2 (10:46→22:16)
--- NOTE | 2017-03-26 14:07 | HHI.NPPN ---
Subjective History of Present Illness 57-year-old male with the alcohol withdrawal, altered mental status, acute renal failure Additional Remarks s/p trach, no signs of distress Objective Data Data Vital Signs Date Time Temp Pulse Resp B/P (MAP) Pulse Ox O2 Delivery O2 Flow Rate FiO2 03/26/17 12:00 98.5 77 16 140/92 (108) 100 03/26/17 12:00 77 03/26/17 12:00 35 03/26/17 10:00 91 03/26/17 08:10 96 T-piece 40 03/26/17 08:00 93 03/26/17 08:00 98.6 93 20 128/77 (94) 100 03/26/17 08:00 40 03/26/17 07:00 100 T-Piece 40 03/26/17 06:00 80 03/26/17 04:00 98.6 91 18 134/89 (104) 99 03/26/17 04:00 91 03/26/17 04:00 40 03/26/17 03:46 100 40 03/26/17 02:00 80 03/26/17 00:15 99 40 03/26/17 00:00 99.3 77 16 134/84 (101) 99 03/26/17 00:00 40 03/26/17 00:00 77 03/25/17 20:40 40 03/25/17 20:34 100 40 03/25/17 20:00 98.4 86 18 129/82 (98) 100 03/25/17 20:00 86 03/25/17 20:00 40 03/25/17 19:00 98 T-Piece 40 03/25/17 18:00 96 03/25/17 16:00 98.9 100 23 133/85 (101) 98 03/25/17 16:00 100 03/25/17 16:00 40 -: 03/25/17 0404 03/26/17 0348 Physical Exam General Appearance: Malnourished Eyes Eye Exam: Pupils Equal Throat Throat Exam: Oral Mucosa Verdi & Moist Neck Neck Exam: Neck Supple Pulmonary Resp Exam: Crackles, Rhonchi, Decreased Bases, Diminished Breath Sounds Cardiology CV Exam: Regular, Normal Sinus Rhythm Gastrointestinal/Abdomen GI Exam: Soft, Non-Tender, Bowel Sounds Present Musculoskeletal MS Remarks left shoulder sub laxation ? dislocated Extremeties Extremities Exam: Trace Edema Neurologic Neuro Exam: Obtunded Assessment/Plan Problem List: (1) SAQIB (acute kidney injury) ICD Codes: N17.9 - Acute kidney failure, unspecified Status: Acute Plan: Acute renal failure acute tubular necrosis with drug use S/P trach. Creatinine slightly improved: 2.7-> 2.3 -> 2.1 > 1.7 Good UOP on bumex 1mg IV q12 - continue for now. 2.6L UOP/ 24 hours Hepatitis C positive Ammonia not high s/p bronchoscopy with removal of mucous plug self extubated, multiple re intubations, now has Trach CT scan abdominal reviewed Subtle high density stranding medial/upper right kidney. Abnormal mass arising from/abutting spleen LUQ measuring up to 7.5 cm with small amount of calcification. FIDEL is positive 1:80, low titre. ANCA negative patient very weak will wait to see if feels better Trach collar O2 (2) Alcohol withdrawal ICD Codes: F10.239 - Alcohol dependence with withdrawal, unspecified Status: Chronic Plan: Patient remained in altered mental status (3) Hypertension ICD Codes: I10 - Essential (primary) hypertension Status: Chronic Plan: Patient's blood pressure was labile continue to monitor Problem Qualifiers (1) Alcohol withdrawal: Qualified Codes: F10.231 - Alcohol dependence with withdrawal delirium (2) Hypertension: Qualified Codes: I10 - Essential (primary) hypertension Daryl Martinez MD Mar 26, 2017 14:07
--- NOTE | 2017-03-26 17:49 | HHI.CCPN ---
Subjective Remarks/Hospital Course This is a 57-year-old male that was found down and admitted to this hospital 02/23/2017. Urine tox screen revealed patient was positive for benzodiazepines and cocaine at that time. Since admission the patient has been on a [facility] protocol, neurology has been consulted Dr. Wayne, with continued supportive care. Over the last 48 hours the patient was noted to have elevation in his creatinine with a significant decrease in urine output acute renal failure nephrology was consulted the patient continues on gentle diuresis and received 80 mg of Lasix IV this afternoon and is currently on sodium bicarbonate infusion at 110 cc/an hour. Due to the patient's respiratory insufficiency, and altered mental status concern for possible continued respiratory decompensation the patient was transferred to the ICU, and critical care was consulted for management. Upon entering the patient's room the patient was noted to be lethargic having received 4 mg of Ativan in the last 4 hours, but opens eyes to sternal rub. The patient was noted to have O2 saturation of 95% on O2 via nasal cannula at 5 L with no accessory respiratory efforts. Stat ABG was ordered pending, to rule out CO2 narcosis. Since admission to ICU the patient was noted to diuresis of 700 cc. 03/03: Afebrile. The patient did not receive any Ativan since 3 PM on 03/02/17. The patient rested well overnight, eventually waking and responding. This a.m. the patient's noted to be sitting up in bed, alert and responsive. Librium has been added to medication regimen for alcohol withdrawal. Noted to be oriented to date of unable to provide name or place at this time. Essential tremors, fine tremors noted. The patient severely weak and unable to feed self without assistance. The patient's diet was advanced to regular diet, tolerating well, 100% consumption. PO meds were held since admission to ICU secondary to lethargy, all by mouth meds resumed this a.m.. The patient currently is compliant following commands, inappropriate responses, with noted incomprehensible words, language at times. Patient is noted to be very weak. Nasal cannula O2 has been weaned down to approximately 3 L, the patient appears in no respiratory distress. Subjective: 03/09: Reconsulted secondary acute respiratory failure. Chest x-ray earlier in the morning revealed collapse versus large pleural effusion left side. Patient oxygen requirements had increased from 4 L to a nonrebreather mask. CT thorax revealed likely mucous plugging/collapsed lung left side. Small to moderate left pleural effusion. Patient was combative upon arrival ICU in place in soft restraints. Due to mental status/mucous plugging patient was electively intubated using 20 mg etomidate and 50 mg, rocuronium. Patient was bronched which revealed thick white mucous plugging in the left and right mainstem. These were lavaged to left upper lobe/lingula and left lower lobe, right upper middle and lower lobes. Samples were sent see orders. Currently sedated with propofol and fentanyl drips. 03/10: Tonic seizures today when propofol stopped. Seizures ceased with propofol bolus. Left pneumonia persists but improved aeration after bronch . 03/11: Gas exchange acceptable. Continues to have tonic "seizures" when propofol is lightened. EEG 03/10 states no seizures but we will repeat EEG again today with stimulation and off propofol. Can't extubate until this "seizure" activity is resolved. Vomited tube feeds, will reduce and add reglan. 03/12: Off sedation tolerating CPAP even though intermittently apneic. Appears to follows commands but weekly on the upper extremity. No obvious seizures. EEG negative for seizure 03/11/17. Creatinine slightly improved to 2.8 from 3 03/13: Failed extubation on 03/12. Currently sedated, orally intubated on mechanical ventilation. Has thick copious respiratory secretions per RECYCLE WORKER. 03/14: Remains sedated, orally intubated on mechanical ventilation. Feeling C Pap trials. Not following commands on lightening sedation. 03/15: Remains intubated encephalopathy. Left lower lobe infiltrate again indicating probable mucous plugging/collapse. Palliative care meeting with family today. I recommend tracheostomy and PEG tube placement. D/W palliative care team 03/16: Off sedation since yesterday 5PM. Eyes open spontaneously. Following commands bilateral upper extremity, he squeezes with both hands. Discussed with Dr. Kingston. Will continue weaning attempt with plan for wean to extubate. s/p bronchoscopy yesterday, with re expansion of L lung. Has moderate secretions. I have updated Lore Darling (sister) about improvement in neuro exam. See below 03/17: Tolerated CPAP 7 hours yesterday. Currently on CPAP. Lethargic/somnolent but follows commands, gives thumbs up on bilateral UE. Creat stable. UO 750 ml in 24 hours. BAL negative to date 03/18: Remains intubated off sedation. There is further improvement in neuro exam, able to move both feet to command, gives thumbs up on both upper extremities. Chest x-ray shows complete white out of the left lung field. We' ll plan for emergency bronchoscopy 03/19: Extubated yesterday, overnight appeared to be having mucus plugging involving L lung. But currently patient is saturating well. He somnolent but wakes up easily and nodding appropriately and following commands, in the bilateral upper extremity 03/20: Today around 5.30 AM, patient acutely became hypoxemic with diminished breath sounds on the left lung field. Placed on nonrebreather clinical exam was consistent with left lower lobe mucus plugging according to Dr. Chadwick. With aggressive suctioning and Mucomyst and DuoNeb breathing treatments, patient 's air entry and saturation improved slightly. Currently on 100% nonrebreather oxygen saturation 90-92% tachypneic but not in severe distress. I discussed tracheostomy with the patient, witnessed by RN Aniket and Dixie. I explained to him that If he gets reintubated he will need tracheostomy due to frequent mucus plugging, with left lung collapse. Patient understands tracheostomy procedure, and wants tracheostomy done in case of reintubation. 03/21: Re intubated yesterday for LLL collapse. Tracheostomy performed yesterday afternoon. Difficult bronchoscopy with therapeutic bronchoscope and multiple attempts to remove the mucus plugging because of the very thick tenacious nature of the plugs. Continue breathing treatments Mucomyst for now. Chest percussion with speciality bed. 03/22: The patient tolerated trach collar trials approximately 1 hour yesterday. The patient continues to have thick secretions, aggressive pulmonary toileting continues with chest percussion. Today the patient indicated that he wanted to be placed back on DNR status. Discussion with family medicine primary service team for cognitive evaluation by psychiatry to assess competency in making this decision. Will continue care as planned, overweight recommendations from psychiatry and palliative medicine. Will hold medication for agitation until assessment is performed, and continue supportive care. 03/23: Acute events overnight. Patient tolerated T piece trials for approximately 5 hours yesterday. Psychiatry consulted seen today. The patient was deemed not competent, full report pending. 03/24: Patient became agitated during the night received 2 doses of Ativan which were ineffective Seroquel added to medication regimen low dose. The patient successfully underwent T piece trials for 6.5 hours yesterday as well as CPAP for 3 hours. Psychiatry was consulted and the patient was deemed not to have any decision-making capacity and sister continues to be the healthcare surrogate for the patient. Yesterday a female individual into the room and stated that she was the patient's palliative care was re-consulted as well as case management to follow-up if the individual is the patient's next of kin. The patient's sister states she was unaware that the patient was . 03/25: Patient noted to be less agitated today Seroquel was initiated yesterday. Patient tolerated T piece trials for approximately 4 hours yesterday. Creatinine improving today. 03/26: No acute events overnight. the patient has been maintained on TPiece trials for 12 hours. Objective Vital Signs Date Time Temp Pulse Resp B/P (MAP) Pulse Ox O2 Delivery O2 Flow Rate FiO2 03/26/17 16:00 35 03/26/17 16:00 95 03/26/17 16:00 98.5 21 110/95 (100) 100 03/26/17 08:10 T-piece 03/25/17 13:42 6.00 Intake and Output 03/26/17 03/26/17 03/27/17 08:00 16:00 00:00 Intake Total 986 ml Output Total 1275 ml Balance -289 ml Result Diagram: 03/25/17 0404 03/26/17 0348 Imaging Last Impressions Shoulder X-Ray 03/05/17 0000 Signed Impressions: Service Date/Time: Sunday, March 05, 2017 20:57 - CONCLUSION: No acute disease. Rick Sanford MD Abdomen/Pelvis CT 03/04/17 0000 Signed Impressions: Service Date/Time: Saturday, March 04, 2017 10:31 - CONCLUSION: 1. There is no hydronephrosis or renal abnormality to explain the renal failure. However, there is subtle high density stranding along the medial and upper pole of the right kidney. Suggest followup CT to assess for change. 2. Abnormal mass arising from or abutting the spleen in the left upper quadrant measuring up to 7.5 cm. It contains a small amount of calcification. Suggest correlating with any prior imaging study that could offer additional characterization. If none are available suggest followup imaging to confirm stability and consider contrast enhanced CT or MRI for further characterization when patient condition permits. 3. Small bilateral pleural effusions, left larger than right, with associated compressive atelectasis. 4. Severe coronary artery calcification. Kilo Coulter MD Chest X-Ray 03/02/17 0000 Signed Impressions: Service Date/Time: Thursday, March 02, 2017 08:18 - CONCLUSION: Increasing consolidative changes left base. Nasir Mack MD FACR Renal Ultrasound 02/27/17 0000 Signed Impressions: Service Date/Time: Monday, February 27, 2017 20:36 - CONCLUSION: 1. Mildly dilated left renal collecting system. Kidneys normal in size. Trace free fluid. Ruy Hussein MD Brain MRI 02/25/17 0000 Signed Impressions: Service Date/Time: Saturday, February 25, 2017 12:37 - CONCLUSION: Atrophy, periventricular changes without evidence for acute infarction. Nasir Mack MD FACR Head CT 02/23/17 0000 Signed Impressions: Service Date/Time: Thursday, February 23, 2017 07:38 - CONCLUSION: No significant change has occurred. Maximus Pavon MD Objective Remarks GENERAL: 57-year-old male, awake alert currently on TPiece trials SKIN: Warm and dry. HEAD: Atraumatic. Normocephalic. EYES: Pupils equal and round around 2 mm bilaterally and reactive. No scleral icterus. No injection or drainage. ENT: No nasal bleeding or discharge. Oral cavity is moist . Tracheostomy site without erythema or drainage NECK: Trachea midline. CARDIOVASCULAR: RRR, tachycardic. S1, S2 no S4. Without murmur. No JVD. RESPIRATORY: Diminished breath sounds left lung thomas. Few coarse rhonchi. Bilateral course crackles GASTROINTESTINAL: Abdomen soft, non-tender, nondistended. Active bowel sounds appreciated MUSCULOSKELETAL: Extremities without without significant peripheral edema. No obvious deformities. Right forearm dressing NEUROLOGICAL: Awake alert oriented to person place and time, nodding appropriately to questions, and conversant. Follows commands bilateral upper and lower extremities. Moves extremities x 4 spontaneously. Date of Insertion: Feb 23, 2017 A/P Assessment and Plan Neuro/Psych: Encephalopathy/Delirium most likely metabolic Admission with EtOH withdrawal - likely completed Polysubstance abuse including cocaine and benzodiazepines Polyneuropathy of critical illness Agitation Improved neuro exam. Was following commands, oriented to person place and time before sedation for intubation and trach 03/20/17 Wean propofol and fentanyl as tolerated Patient is followed by Dr. Rogel neurology. EEG's reveal moderate encephalopathy no epileptiform activity. MRI negative for acute findings Previously on Seroquel 25 mg at night DCd and Haldol when necessary- discontinued 03/15/17 Librium DCd 03/15/17 Seizure precautions ?Seizures 03/10-EEG negative for seizures. Continue thiamine 100 mg daily Will hold all sedative medications, continue supportive care when patient's agitated. 03/23- cognitive evaluation by Dr. Sheriff -no decision-making capacity 03/24 Ativan discontinued, Seroquel 25 mg daily Respiratory: Acute hypoxemic respiratory failure secondary to aspiration Recurrent left lower lobe collapse/mucus plugging Complete opacification of left lung field due to mucus plugging 03/18/17 s/p tracheostomy 03/20/17 Status post extubation after therapeutic bronchoscopy 03/18/17 and reintubated for left lower lobe collapse on 03/20/17 s/p Tracheostomy 03/21/17. Difficult bronchoscopy with therapeutic scope and multiple attempts to remove very thick mucus plugs from left main bronchus. Continue breathing treatments Mucomyst for now. Chest percussion with speciality bed Patient wants to continue full code and also consented for tracheostomy if he gets reintubated. Witnessed by RNs Aniket and Dixie on 03/20/17 IV Solumedrol 60 q12 03/17/17, 03/24 begin weaning process to 40 mg every 12. Was on Symbicort and Spiriva CT thorax from 03/09 revealed collapse left upper/lingula lobes with significant secretions left main bronchus. s/p bronch Improved aeration 03/10 Continue attempts at T piece trials, aggressive pulmonary toileting Cardiovascular: Hypertension Fluid overload Amlodipine 10 mg daily, clonidine 0.1 mg 3 times a day and metoprolol 5 mg by mouth twice a day for hypertension, with holding parameters Use when necessary labetalol and hydralazine when patient is nothing by mouth Maintain MAP > 65 mmHG Bumex as below Renal: Acute kidney injury secondary to ATN Nephrology following Dr. Juan. Creatinine 2.37->2.1 today. UOP 2017 in 24 hours Accurate I's and O's, Monitor urine output. Continue Hall catheter due to worsening renal failure Start scheduled Bumex 2 mg now and 1 mg every 12 hrs- 03/20/17 No signs of hydronephrosis on renal imaging, Urine eosinophils negative FEN/GI: Mild protein calorie malnutrition Hyperkalemia-resolved Hep C Continue tube feeds, hold off PEG tube as patient may be able to take PO diet once off vent Lansoprazole for GI prophylaxis Docusate sodium senna 1 tablet twice a day for bowel regimen. Diarrhea-repeat C. difficile antigen Free water deficit 1.2 L-decrease free water 250cc every 8 hours Follow-up BMP Heme/ID: Macro Anemia Thrombocytopenia Probable Pneumonia F/U BAL 03/15-neg to date On previous cultures in BAL have been negative except 02/23 coag negative staph which is contamination Cefepime discontinued 03/19/17, DCd Flagyl and azithromycin 03/09/17-03/15/17 10/ C Diff negative Endocrine: Sliding-scale insulin to maintain euglycemia/low regimen with NovoLog every 6 hours Prophylaxis: GI Prophylaxis Lansoprazole DVT Prophylaxis SCDs/heparin subcutaneous Lines: Peripheral IVs providing adequate access at this time. Palliative care team following to assist with deciding goals of therapy Overall impression: Critically ill with acute respiratory deterioration from recurrent mucus plugging and hypoxemic respiratory failure. Intubated and trached 03/20/17 03/15/17: I discussed and updated Lore Darling (sister) over the phone: . I explained to her improvement in neurological status. She is agreeable to continued care since there is improvement, and she does not want any other invasive procedures at this time and if there is any further clinical deterioration she wants to pursue comfort measures. 03/24/17: Patient deemed by psychiatry not to have decision-making capacity. Sister Lore Darling currently is the patient's healthcare surrogate. Confirmation of healthcare surrogacy pending -requested by palliative medicine in case management as a person visited on 03/23, stating she is the patient's . Level 3 Physician Edie De La Fuente MD Mar 26, 2017 17:49
[2017-03-27] VITALS (18 sets, daily range): BP systolic 119–139; BP diastolic 75–90; PULSE 79–106; RESP 12–20; TEMP 98.4–99.4; O2SAT 95–100
[2017-03-27] MEDS: RESP: ALBUTEROL 2.5 MG/IPRATROPIUM 0.5 MG NEB (SCH) NEB ×3 (04:47→11:51)
[2017-03-27 06:10] LABS: HEMATOCRIT 35.7 % (39.0-51.0); MEAN CELL VOLUME 99.1 FL (80.0-100.0); MEAN CORPUSCULAR HEMOGLOBIN 34.5 PG (27.0-34.0); MEAN CORPUSCULAR HGB CONC 34.8 % (32.0-36.0); PLATELET COUNT 109 TH/MM3 (150-450); RED CELL DISTRIBUTION WIDTH 13.5 % (11.6-17.2); REVIEW FLAG FINAL
[2017-03-27 06:38] LABS: BICARBONATE 35.6 MEQ/L (21.0-32.0); MAGNESIUM 1.6 MG/DL (1.5-2.5); POTASSIUM 4.2 MEQ/L (3.5-5.1)
[2017-03-27] MEDS: CHLORHEXIDINE 0.12% (ORAL KIT) 15 ML CUP MT SCH ×4 (08:00→20:00)
[2017-03-27] MEDS: BENEPROTEIN POWDER 1 PACK G-TUBE SCH ×3 (09:00→18:00)
[2017-03-27] MEDS: METOPROLOL TARTRATE 25 MG TAB PO SCH ×3 (09:00→20:38)
[2017-03-27] MEDS: BUMETANIDE INJ 1 MG/4 ML VIAL IV PUSH SCH ×2 (09:00→09:44)
--- NOTE | 2017-03-27 09:02 | HHI.FPPN ---
Subjective Remarks Patient seen and examined bedside this morning. Patient is sleeping and is arousable but does not engage in conversation. Patient is breathing without any difficulty on the vent. He does not seem agitated, and he is still in restraints. (Bonnie Pan MD R2) Objective Vitals Vital Signs Date Time Temp Pulse Resp B/P (MAP) Pulse Ox O2 Delivery O2 Flow Rate FiO2 03/27/17 06:00 94 03/27/17 05:10 100 40 03/27/17 04:00 40 03/27/17 04:00 106 03/27/17 04:00 98.6 106 18 121/76 (91) 98 03/27/17 02:00 79 03/27/17 00:00 98.4 96 20 139/75 (96) 100 03/27/17 00:00 40 03/27/17 00:00 87 03/26/17 22:00 92 03/26/17 21:52 99 40 03/26/17 20:00 88 03/26/17 20:00 40 03/26/17 20:00 98.7 93 20 135/95 (108) 98 03/26/17 19:00 100 Bi-Pap 40 03/26/17 18:00 93 03/26/17 16:00 35 03/26/17 16:00 95 03/26/17 16:00 98.5 95 21 110/95 (100) 100 03/26/17 14:00 93 03/26/17 12:00 98.5 77 16 140/92 (108) 100 03/26/17 12:00 77 03/26/17 12:00 35 03/26/17 10:00 91 I/O 03/26/17 03/26/17 03/26/17 03/27/17 03/27/17 03/27/17 07:00 15:00 23:00 07:00 15:00 23:00 Intake Total 986 ml 860 ml 1212 ml Output Total 1275 ml 1875 ml 600 ml Balance -289 ml -1015 ml 612 ml Tube Feeding 736 ml 712 ml Other 250 ml 860 ml 500 ml Output Urine Total 1275 ml 1875 ml 600 ml # Voids 1 2 # Bowel Movements 2 2 0 (Bonnie Pan MD R2) Result Diagram: 03/27/17 0532 03/27/17 0532 Objective Remarks GENERAL: Patient is lying in bed asleep on T-piece on O2 to 6-7L/m, but he opens his eyes to voice and/or touch. Patient leaning to his left. SKIN: Bilateral upper extremities with multiple well-healing scabs on right arm. HEENT: On trach to vent. Pupils grossly symmetrical and reactive. Sclera injected bilaterally. CARDIOVASCULAR: RRR without appreciable murmurs. grossly normal perfusion. No edema RESPIRATORY: normal rate; decreased breath sounds on the left, similar to previous exams, without wheezing GASTROINTESTINAL: Abdomen soft, non-distended, non-tender GENITOURINARY: catheter draining yellow urine MUSCULOSKELETAL: no cyanosis, no edema. No calf tenderness. NEURO: Patient is lying in bed asleep, but he opens his eyes to voice. Procedures * 03/20/17 -Bronchoscopy & Tracheostomy placement * 03/20/17 -Reintubation * 03/19/17 -Extubated * 03/18/17 -Bronchoscopy * 03/15/17 -bronchoscopy * 03/12/17 -reintubated * 03/12/17 -medical extubated * 03/09/17 -endotracheal Intubation * 03/09/17 -Bronchoscopy (Bonnie Pan MD R2) Date of Insertion: Feb 23, 2017 (Bonnie Pan MD R2) A/P Assessment and Plan 57-year-old white male with past medical history of alcohol withdrawal presented to the ED with severe hypoglycemia and altered mental status; patient has had progressively worsening renal function and is currently being followed for renal failure and continued altered mental status. Pt recently required intubation and sedation for respiratory distress and imaging with opacification of the left lung concerning for left lung collapse in the context of mucus plugging, which was removed on 03/09 and again on 03/18 and again on 03/20. Patient has been reintubated multiple times. Tracheostomy on 03/20. Discharge Planning Pending workup for declining renal function, AMS, weaning off vent. Working on plan of care with onsite case manager and palliative care director social service. Psychiatry was consulted and determined that patient does not have decision- making capacity. We are attempting to clarify goals of care with his sister and possibly . He is currently full code. (Bonnie Pan MD R2) Attending Attestation Pt. examined and case discussed with resident physicians I have read the above note and agree with the assessment/voss as discussed with me I was involved in all medical decision making for this patient. Aris Martinez MD (Aris Martinez MD) Problem List: (1) Altered mental status ICD Codes: R41.82 - Altered mental status, unspecified Status: Acute Plan: Patient on vent to trach. At this point the patient is still full code and had consented to tracheostomy, which was done on 03/20/17. Pt does not have capacity to make his own treatment decisions per psychiatry evaluation. -Seroquel 25 mg daily for agitation -IV solumedrol q12h -CPT -Continue treatment of chronic alcoholism -Continue PO multivitamin -PO thiamine -Occupational therapy recommended OT at rehabilitation (PT recommended OT). -PT, OT, ST -Continue tube feeds at 55ml/hr and 1L of free water per dietary; Seizure precautions Impression: AMS initially suspected secondary to alcoholism or polysubstance abuse; persistent. could be anoxic brain injury from hypoglycemia (2) Respiratory disease ICD Codes: J98.9 - Respiratory disorder, unspecified Status: Acute Plan: Patient re-intubated on 03/20/17. Patient tolerated T-piece [id number] trials as well as CPAP yesterday. Stable respiratory exam. -Continue T piece trials, pulmonary toilet -Chest x-ray 03/25: Bibasilar airspace disease and pleural effusion, left greater than right, unchanged from 03/23 -Washing Tub Operator consulted and appreciated -See plan above -Continue breathing treatments, O2 per CC/respiratory therapy -Mucomyst, Chest percussion with speciality bed -Levsin for secretions -Bronchial washing cultures negative. 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 Thus, patient may be unable to protect airway. Patient with repeated mucous plugging and lung collapses on imaging. Thick secretions likely due to undiagnosed COPD. (3) SAQIB (acute kidney injury) ICD Codes: N17.9 - Acute kidney failure, unspecified Status: Acute Plan: -Nephrology consulted: Diagnosed with Acute renal failure acute tubular necrosis with drug use, Non oliguric, creatinine is stable. -Monitor BMP -Bumex 1mg IV q12h (4) Hypertension ICD Codes: I10 - Essential (primary) hypertension Status: Chronic Plan: -Hold Amlodipine 10mg PO daily -Hold Hydralazine 25 mg q12h since hypotension -Hydralazine 20 mg IV push every hour when necessary for blood pressure over 160 /90 -Labetalol 20 mg IV push every 4 hours when necessary for systolic blood pressure over 160 -Metoprolol 25 mg q12h -Clonidine 0.1 mg q6h PRN For SBP >/= 170, DBP >/= 100 -Maintain MAP > 65 mmHG -Bumex as above Impression: BPs stable (5) FEN Status: Acute Plan: Fluids: none Electrolytes: Monitor and replace per protocol Nutrition: Tube feeds with free water, We cannot do swallow study to evaluate for PO until 7 days post-trach (03/27) GI PPx: Lansoprazole 30 mg NG/day VTE prophylaxis: Heparin 5000 units every 12 hours and SCDs (Bonnie Pan MD R2) Problem Qualifiers (1) Altered mental status: Qualified Codes: R41.0 - Disorientation, unspecified (2) Hypertension: Qualified Codes: I10 - Essential (primary) hypertension Bonnie Pan MD R2 Mar 27, 2017 09:02 Aris Martinez MD Mar 27, 2017 11:08
[2017-03-27] MEDS: THIAMINE HCL 100 MG TAB PO SCH ×2 (09:44→11:51)
[2017-03-27] MEDS: QUEtiapine FUMARATE 25 MG TAB PO SCH ×2 (09:45→11:51)
[2017-03-27] MEDS: LANSOPRAZOLE SOLUTAB 30 MG TAB NG SCH ×2 (09:45→11:51)
[2017-03-27] MEDS: MULTIVITAMIN TAB PO SCH ×2 (09:45→11:51)
[2017-03-27] MEDS: methylPREDNISolone SOD SUCC 125 MG/2 ML VIAL IV PUSH SCH ×2 (09:50→20:38)
[2017-03-27] MEDS: BUDESONIDE-FORMOTEROL 160/4.5 MCG INHALER INH SCH ×2 (09:50→21:00)
[2017-03-27] MEDS: SODIUM CHLORIDE 0.9% FLUSH 10 ML FLUSH IV FLUSH SCH ×2 (09:50→20:38)
[2017-03-27] MEDS: TIOTROPIUM BROMIDE 18 MCG INH INH SCH (09:50)
[2017-03-27] MEDS: LABETALOL HCL 100 MG/20 ML VIAL IV PUSH PRN (10:51)
--- NOTE | 2017-03-27 11:06 | RADRPT ---
EXAM DATE/TIME: 03/27/2017 10:33 [facility] COMPARISON: CHEST SINGLE AP, March 25, 2017, 3:38. INDICATIONS : Respiratory distress. MEDICAL HISTORY : Hepatitis C. Myocardial infarction. Arthritis. Seizures. SURGICAL HISTORY : None. ENCOUNTER: Subsequent ACUITY: 3 weeks PAIN SCORE: Non-responsive. LOCATION: Bilateral chest FINDINGS: Tracheostomy is stable. Nasogastric tube descends to the stomach. Hazy basilar parenchymal opacities persist no worse on the left than the right. Cardiac contours are grossly stable accounting for diffe rences in technique and rotation. CONCLUSION: Stable chest appearance. Kilo Maravilla MD on March 27, 2017 at 11:03 Board Certified Radiologist. This report was verified electronically.
[2017-03-27 11:20] LABS: BLOOD GAS BASE EXCESS 8.3 mmol/L (-2-2); BLOOD GAS CARBOXYHEMOGLOBIN 1.1 % (0-4); BLOOD GAS HCO3 33 mmol/L (22-26); BLOOD GAS METHEMOGLOBIN 0.6 % (0-2); BLOOD GAS O2 HGB SATURATION 98 % (90-100); BLOOD GAS OXYGEN CONTENT 16.7 Vol % (12.0-20.0); BLOOD GAS PCO2 56 mmHg (38-42); BLOOD GAS PO2 221 mmHg (61-120); BLOOD GAS TOTAL HGB 11.8 G/DL (12.0-16.0); TEMP CORR TO 98.6
[2017-03-27 11:21] LABS: CRITICAL VALUE YES; OXYGEN DEVICE VENTILATOR
[2017-03-27 11:22] LABS: DRAW SITE ART LINE; FIO2 100 %; STAT YES; VENT SETTINGS PRVC/AC
--- NOTE | 2017-03-27 11:29 | PD.PROCEDR ---
Procedure Note Procedure Procedure: Arterial Line Placement Left radial Diagnosis: Acute hypoxic respiratory failure Indications: Same Consent: Emergent Description of the Procedure: The left radial was prepped and draped sterilely. 1% lidocaine was used for local anesthesia. The pulse was located and a needle was advanced into the artery. A 20-gauge gauge, 1.34 cm catheter was advanced into the artery using a modified Seldinger technique. The catheter was sutured to the skin and a sterile dressing was applied. The catheter was connected to a pressure transducer and an arterial waveform was noted. There were no immediate complications noted. There was minimal EBL. I personally performed the procedure. Edie Marte MD Mar 27, 2017 11:29
[2017-03-27] MEDS: RESP: ACETYLCYSTEINE 10% 30 ML NEB NEB SCH ×3 (11:51→19:50)
[2017-03-27] MEDS: HEPARIN SODIUM - SQ 10,000 UNITS/ML VIAL SQ SCH ×2 (11:51→23:00)
--- NOTE | 2017-03-27 12:57 | HHI.NPPN ---
Subjective History of Present Illness 57-year-old male with the alcohol withdrawal, altered mental status, acute renal failure Additional Remarks s/p trach, no signs of distress Objective Data Data Vital Signs Date Time Temp Pulse Resp B/P (MAP) Pulse Ox O2 Delivery O2 Flow Rate FiO2 03/27/17 11:54 95 50 03/27/17 09:24 99 T-piece 28 03/27/17 06:00 94 03/27/17 05:10 100 40 03/27/17 04:00 40 03/27/17 04:00 106 03/27/17 04:00 98.6 106 18 121/76 (91) 98 03/27/17 02:00 79 03/27/17 00:00 98.4 96 20 139/75 (96) 100 03/27/17 00:00 40 03/27/17 00:00 87 03/26/17 22:00 92 03/26/17 21:52 99 40 03/26/17 20:00 88 03/26/17 20:00 40 03/26/17 20:00 98.7 93 20 135/95 (108) 98 03/26/17 19:00 100 Bi-Pap 40 03/26/17 18:00 93 03/26/17 16:00 35 03/26/17 16:00 95 03/26/17 16:00 98.5 95 21 110/95 (100) 100 03/26/17 14:00 93 -: 03/27/17 0532 03/27/17 0532 Physical Exam General Appearance: Malnourished Eyes Eye Exam: Pupils Equal Throat Throat Exam: Oral Mucosa [place] & Moist Neck Neck Exam: Neck Supple Pulmonary Resp Exam: Crackles, Rhonchi, Decreased Bases, Diminished Breath Sounds Cardiology CV Exam: Regular, Normal Sinus Rhythm Gastrointestinal/Abdomen GI Exam: Soft, Non-Tender, Bowel Sounds Present Musculoskeletal MS Remarks left shoulder sub laxation ? dislocated Extremeties Extremities Exam: Trace Edema Neurologic Neuro Exam: Obtunded Assessment/Plan Problem List: (1) SAQIB (acute kidney injury) ICD Codes: N17.9 - Acute kidney failure, unspecified Status: Acute Plan: Acute renal failure acute tubular necrosis with drug use S/P trach. Creatinine slightly improved: 2.7-> 2.3 -> 2.1 > 1.7--> 1.6 HCO3 35 Good UOP on bumex 1mg IV q12 - continue for now. 2.4 L UOP/ 24 hours as Alkalosis setting in I will reduced Bumex 1 mg daily Hepatitis C positive Ammonia not high s/p bronchoscopy with removal of mucous plug self extubated, multiple re intubations, now has Trach CT scan abdominal reviewed Subtle high density stranding medial/upper right kidney. Abnormal mass arising from/abutting spleen LUQ measuring up to 7.5 cm with small amount of calcification. FIDEL is positive 1:80, low titre. ANCA negative patient very weak will wait to see if feels better Trach collar O2 (2) Alcohol withdrawal ICD Codes: F10.239 - Alcohol dependence with withdrawal, unspecified Status: Chronic Plan: Patient remained in altered mental status (3) Hypertension ICD Codes: I10 - Essential (primary) hypertension Status: Chronic Plan: Patient's blood pressure was labile continue to monitor Problem Qualifiers (1) Alcohol withdrawal: Qualified Codes: F10.231 - Alcohol dependence with withdrawal delirium (2) Hypertension: Qualified Codes: I10 - Essential (primary) hypertension Daryl Martinez MD Mar 27, 2017 12:56
--- NOTE | 2017-03-27 13:29 | HHI.CCPN ---
Subjective Remarks/Hospital Course This is a 57-year-old male that was found down and admitted to this hospital 02/23/2017. Urine tox screen revealed patient was positive for benzodiazepines and cocaine at that time. Since admission the patient has been on a [facility] protocol, neurology has been consulted Dr. Wayne, with continued supportive care. Over the last 48 hours the patient was noted to have elevation in his creatinine with a significant decrease in urine output acute renal failure nephrology was consulted the patient continues on gentle diuresis and received 80 mg of Lasix IV this afternoon and is currently on sodium bicarbonate infusion at 110 cc/an hour. Due to the patient's respiratory insufficiency, and altered mental status concern for possible continued respiratory decompensation the patient was transferred to the ICU, and critical care was consulted for management. Upon entering the patient's room the patient was noted to be lethargic having received 4 mg of Ativan in the last 4 hours, but opens eyes to sternal rub. The patient was noted to have O2 saturation of 95% on O2 via nasal cannula at 5 L with no accessory respiratory efforts. Stat ABG was ordered pending, to rule out CO2 narcosis. Since admission to ICU the patient was noted to diuresis of 700 cc. 03/03: Afebrile. The patient did not receive any Ativan since 3 PM on 03/02/17. The patient rested well overnight, eventually waking and responding. This a.m. the patient's noted to be sitting up in bed, alert and responsive. Librium has been added to medication regimen for alcohol withdrawal. Noted to be oriented to date of unable to provide name or place at this time. Essential tremors, fine tremors noted. The patient severely weak and unable to feed self without assistance. The patient's diet was advanced to regular diet, tolerating well, 100% consumption. PO meds were held since admission to ICU secondary to lethargy, all by mouth meds resumed this a.m.. The patient currently is compliant following commands, inappropriate responses, with noted incomprehensible words, language at times. Patient is noted to be very weak. Nasal cannula O2 has been weaned down to approximately 3 L, the patient appears in no respiratory distress. Subjective: 03/09: Reconsulted secondary acute respiratory failure. Chest x-ray earlier in the morning revealed collapse versus large pleural effusion left side. Patient oxygen requirements had increased from 4 L to a nonrebreather mask. CT thorax revealed likely mucous plugging/collapsed lung left side. Small to moderate left pleural effusion. Patient was combative upon arrival ICU in place in soft restraints. Due to mental status/mucous plugging patient was electively intubated using 20 mg etomidate and 50 mg, rocuronium. Patient was bronched which revealed thick white mucous plugging in the left and right mainstem. These were lavaged to left upper lobe/lingula and left lower lobe, right upper middle and lower lobes. Samples were sent see orders. Currently sedated with propofol and fentanyl drips. 03/10: Tonic seizures today when propofol stopped. Seizures ceased with propofol bolus. Left pneumonia persists but improved aeration after bronch . 03/11: Gas exchange acceptable. Continues to have tonic "seizures" when propofol is lightened. EEG 03/10 states no seizures but we will repeat EEG again today with stimulation and off propofol. Can't extubate until this "seizure" activity is resolved. Vomited tube feeds, will reduce and add reglan. 03/12: Off sedation tolerating CPAP even though intermittently apneic. Appears to follows commands but weekly on the upper extremity. No obvious seizures. EEG negative for seizure 03/11/17. Creatinine slightly improved to 2.8 from 3 03/13: Failed extubation on 03/12. Currently sedated, orally intubated on mechanical ventilation. Has thick copious respiratory secretions per [employer]. 03/14: Remains sedated, orally intubated on mechanical ventilation. Feeling C Pap trials. Not following commands on lightening sedation. 03/15: Remains intubated encephalopathy. Left lower lobe infiltrate again indicating probable mucous plugging/collapse. Palliative care meeting with family today. I recommend tracheostomy and PEG tube placement. D/W palliative care team 03/16: Off sedation since yesterday 5PM. Eyes open spontaneously. Following commands bilateral upper extremity, he squeezes with both hands. Discussed with Dr. Kingston. Will continue weaning attempt with plan for wean to extubate. s/p bronchoscopy yesterday, with re expansion of L lung. Has moderate secretions. I have updated Lore Darling (sister) about improvement in neuro exam. See below 03/17: Tolerated CPAP 7 hours yesterday. Currently on CPAP. Lethargic/somnolent but follows commands, gives thumbs up on bilateral UE. Creat stable. UO 750 ml in 24 hours. BAL negative to date 03/18: Remains intubated off sedation. There is further improvement in neuro exam, able to move both feet to command, gives thumbs up on both upper extremities. Chest x-ray shows complete white out of the left lung field. We' ll plan for emergency bronchoscopy 03/19: Extubated yesterday, overnight appeared to be having mucus plugging involving L lung. But currently patient is saturating well. He somnolent but wakes up easily and nodding appropriately and following commands, in the bilateral upper extremity 03/20: Today around 5.30 AM, patient acutely became hypoxemic with diminished breath sounds on the left lung field. Placed on nonrebreather clinical exam was consistent with left lower lobe mucus plugging according to Dr. Chadwick. With aggressive suctioning and Mucomyst and DuoNeb breathing treatments, patient 's air entry and saturation improved slightly. Currently on 100% nonrebreather oxygen saturation 90-92% tachypneic but not in severe distress. I discussed tracheostomy with the patient, witnessed by RN Aniket and Dixie. I explained to him that If he gets reintubated he will need tracheostomy due to frequent mucus plugging, with left lung collapse. Patient understands tracheostomy procedure, and wants tracheostomy done in case of reintubation. 03/21: Re intubated yesterday for LLL collapse. Tracheostomy performed yesterday afternoon. Difficult bronchoscopy with therapeutic bronchoscope and multiple attempts to remove the mucus plugging because of the very thick tenacious nature of the plugs. Continue breathing treatments Mucomyst for now. Chest percussion with speciality bed. 03/22: The patient tolerated trach collar trials approximately 1 hour yesterday. The patient continues to have thick secretions, aggressive pulmonary toileting continues with chest percussion. Today the patient indicated that he wanted to be placed back on DNR status. Discussion with family medicine primary service team for cognitive evaluation by psychiatry to assess competency in making this decision. Will continue care as planned, overweight recommendations from psychiatry and palliative medicine. Will hold medication for agitation until assessment is performed, and continue supportive care. 03/23: Acute events overnight. Patient tolerated T piece trials for approximately 5 hours yesterday. Psychiatry consulted seen today. The patient was deemed not competent, full report pending. 03/24: Patient became agitated during the night received 2 doses of Ativan which were ineffective Seroquel added to medication regimen low dose. The patient successfully underwent T piece trials for 6.5 hours yesterday as well as CPAP for 3 hours. Psychiatry was consulted and the patient was deemed not to have any decision-making capacity and sister continues to be the healthcare surrogate for the patient. Yesterday a female individual into the room and stated that she was the patient's palliative care was re-consulted as well as case management to follow-up if the individual is the patient's next of kin. The patient's sister states she was unaware that the patient was . 03/25: Patient noted to be less agitated today Seroquel was initiated yesterday. Patient tolerated T piece trials for approximately 4 hours yesterday. Creatinine improving today. 03/26: No acute events overnight. the patient has been maintained on TPiece trials for 12 hours. 03/27: This a.m. the patient was noted to be in hypoxemic respiratory failure, O2 sat precipitously dropped into the 70s. Aggressive pulmonary toileting with suctioning thick tenacious mucus was obtained, stat chest x-ray, 100% FiO2 with clearing. Mucomyst 2 days ordered .Plan bronchoscopy if no improvement. Objective Vital Signs Date Time Temp Pulse Resp B/P (MAP) Pulse Ox O2 Delivery O2 Flow Rate FiO2 03/27/17 11:54 95 50 03/27/17 09:24 T-piece 03/27/17 06:00 94 03/27/17 04:00 98.6 18 121/76 (91) 03/25/17 13:42 6.00 Intake and Output 03/27/17 03/27/17 03/28/17 08:00 16:00 00:00 Intake Total 1212 ml Output Total 600 ml Balance 612 ml Result Diagram: 03/27/17 0532 03/27/17 0532 Other Results Laboratory Tests Test 03/27/17 11:00 Blood Gas Puncture Site ART LINE Blood Gas Patient Temperature 98.6 Blood Gas HCO3 33 mmol/L (22-26) Blood Gas Base Excess 8.3 mmol/L (-2-2) Blood Gas Oxygen Saturation 98 % (90-100) Arterial Blood pH 7.40 (7.380-7.420) Arterial Blood Partial Pressure CO2 56 mmHg (38-42) Arterial Blood Partial Pressure O2 221 mmHg (61-120) Arterial Blood Oxygen Content 16.7 Vol % (12.0-20.0) Arterial Blood Carboxyhemoglobin 1.1 % (0-4) Arterial Blood Methemoglobin 0.6 % (0-2) Blood Gas Hemoglobin 11.8 G/DL (12.0-16.0) Oxygen Delivery Device VENTILATOR Blood Gas Ventilator Setting PRVC/AC Blood Gas Inspired Oxygen 100 % Imaging Last Impressions Chest X-Ray 03/28/17 0600 Signed Impressions: Service Date/Time: Tuesday, March 28, 2017 03:58 - CONCLUSION: No significant change. Kilo Rowell MD Abdomen X-Ray 03/13/17 0000 Signed Impressions: Service Date/Time: Monday, March 13, 2017 13:04 - CONCLUSION: 1. The tip of the NG tube is just through the GE junction and into the stomach. Cliff Mack MD Brain MRI 03/10/17 0000 Signed Impressions: Service Date/Time: Friday, March 10, 2017 15:01 - CONCLUSION: No acute infarct or other acute intracranial abnormality. Atrophy and chronic white matter changes are again noted. Kilo Rowell MD Chest CT 03/09/17 0000 Signed Impressions: Service Date/Time: Thursday, March 09, 2017 04:59 - CONCLUSION: 1. Marked volume loss in the left hemithorax with near-complete collapse of the left lower lobe/lingula. There is still some aeration in the left upper lung. Some of this is due to the moderate sized left-sided effusion although there may be element of airway obstruction/mucus plugging as well. 2. Small right-sided effusion with become atelectatic changes in the right base. 3. Patchy biapical airspace disease.. Tone Henry MD Shoulder X-Ray 03/05/17 0000 Signed Impressions: Service Date/Time: Sunday, March 05, 2017 20:57 - CONCLUSION: No acute disease. Rick Sanford MD Abdomen/Pelvis CT 03/04/17 0000 Signed Impressions: Service Date/Time: Saturday, March 04, 2017 10:31 - CONCLUSION: 1. There is no hydronephrosis or renal abnormality to explain the renal failure. However, there is subtle high density stranding along the medial and upper pole of the right kidney. Suggest followup CT to assess for change. 2. Abnormal mass arising from or abutting the spleen in the left upper quadrant measuring up to 7.5 cm. It contains a small amount of calcification. Suggest correlating with any prior imaging study that could offer additional characterization. If none are available suggest followup imaging to confirm stability and consider contrast enhanced CT or MRI for further characterization when patient condition permits. 3. Small bilateral pleural effusions, left larger than right, with associated compressive atelectasis. 4. Severe coronary artery calcification. Kilo Coulter MD Renal Ultrasound 02/27/17 0000 Signed Impressions: Service Date/Time: Monday, February 27, 2017 20:36 - CONCLUSION: 1. Mildly dilated left renal collecting system. Kidneys normal in size. Trace free fluid. Ruy Hussein MD Head CT 02/23/17 0000 Signed Impressions: Service Date/Time: Thursday, February 23, 2017 07:38 - CONCLUSION: No significant change has occurred. Maximus Pavon MD Last Impressions Shoulder X-Ray 03/05/17 0000 Signed Impressions: Service Date/Time: Sunday, March 05, 2017 20:57 - CONCLUSION: No acute disease. Rick Sanford MD Abdomen/Pelvis CT 03/04/17 0000 Signed Impressions: Service Date/Time: Saturday, March 04, 2017 10:31 - CONCLUSION: 1. There is no hydronephrosis or renal abnormality to explain the renal failure. However, there is subtle high density stranding along the medial and upper pole of the right kidney. Suggest followup CT to assess for change. 2. Abnormal mass arising from or abutting the spleen in the left upper quadrant measuring up to 7.5 cm. It contains a small amount of calcification. Suggest correlating with any prior imaging study that could offer additional characterization. If none are available suggest followup imaging to confirm stability and consider contrast enhanced CT or MRI for further characterization when patient condition permits. 3. Small bilateral pleural effusions, left larger than right, with associated compressive atelectasis. 4. Severe coronary artery calcification. Kilo Coulter MD Chest X-Ray 03/02/17 0000 Signed Impressions: Service Date/Time: Thursday, March 02, 2017 08:18 - CONCLUSION: Increasing consolidative changes left base. Nasir Mack MD FACR Renal Ultrasound 02/27/17 0000 Signed Impressions: Service Date/Time: Monday, February 27, 2017 20:36 - CONCLUSION: 1. Mildly dilated left renal collecting system. Kidneys normal in size. Trace free fluid. Ruy Hussein MD Brain MRI 02/25/17 0000 Signed Impressions: Service Date/Time: Saturday, February 25, 2017 12:37 - CONCLUSION: Atrophy, periventricular changes without evidence for acute infarction. Nasir Mack MD FACR Head CT 02/23/17 0000 Signed Impressions: Service Date/Time: Thursday, February 23, 2017 07:38 - CONCLUSION: No significant change has occurred. Maximus Pavon MD Objective Remarks GENERAL: 57-year-old male, awake alert, calm no respiratory distress at this time SKIN: Warm and dry. HEAD: Atraumatic. Normocephalic. EYES: Pupils equal and round around 2 mm bilaterally and reactive. No scleral icterus. No injection or drainage. ENT: No nasal bleeding or discharge. Oral cavity is moist . NECK: Trachea midline. Thick white/cream tenacious secretions emanating from tracheostomy CARDIOVASCULAR: RRR, tachycardic. S1, S2 no S4. Without murmur. No JVD. RESPIRATORY: Diminished breath sounds left lung thomas. Few coarse rhonchi. Bilateral course crackles GASTROINTESTINAL: Abdomen soft, non-tender, nondistended. Active bowel sounds appreciated MUSCULOSKELETAL: Extremities without without significant peripheral edema. No obvious deformities. NEUROLOGICAL: GCS 11T. Follows commands bilateral upper and lower extremities. Moves extremities x 4 spontaneously. Answering yes and no questions Procedures 03/28: Bronchoscopy Date of Insertion: Feb 23, 2017 A/P Assessment and Plan Neuro/Psych: Encephalopathy/Delirium most likely metabolic Admission with EtOH withdrawal - likely completed Polysubstance abuse including cocaine and benzodiazepines Polyneuropathy of critical illness Agitation Improved neuro exam. Was following commands, oriented to person place and time before sedation for intubation and trach 03/20/17 Wean propofol and fentanyl as tolerated Patient is followed by Dr. Rogel neurology. EEG's reveal moderate encephalopathy no epileptiform activity. MRI negative for acute findings Previously on Seroquel 25 mg at night DCd and Haldol when necessary- discontinued 03/15/17 Librium DCd 03/15/17 Seizure precautions ?Seizures 03/10-EEG negative for seizures. Continue thiamine 100 mg daily Will hold all sedative medications, continue supportive care when patient's agitated. 03/23- cognitive evaluation by Dr. Sheriff -no decision-making capacity 03/24 Ativan discontinued, Seroquel 25 mg daily Respiratory: Acute hypoxemic respiratory failure secondary to aspiration Recurrent left lower lobe collapse/mucus plugging Complete opacification of left lung field due to mucus plugging 03/18/17 s/p tracheostomy 03/20/17 Status post extubation after therapeutic bronchoscopy 03/18/17 and reintubated for left lower lobe collapse on 03/20/17 s/p Tracheostomy 03/21/17. Difficult bronchoscopy with therapeutic scope and multiple attempts to remove very thick mucus plugs from left main bronchus. Continue breathing treatments Mucomyst for now. Chest percussion with speciality bed Patient wants to continue full code and also consented for tracheostomy if he gets reintubated. Witnessed by RNs Aniket and Dixie on 03/20/17 IV Solumedrol 60 q12 03/17/17, 03/24 begin weaning process to 40 mg every 12. Was on Symbicort and Spiriva CT thorax from 03/09 revealed collapse left upper/lingula lobes with significant secretions left main bronchus. s/p bronch Improved aeration 03/10 Continue attempts at T piece trials, aggressive pulmonary toileting 03/27 reinitiated Mucomyst 2 days 03/28 Bronchoscopy Cardiovascular: Hypertension Fluid overload Amlodipine 10 mg daily, clonidine 0.1 mg 3 times a day and metoprolol 5 mg by mouth twice a day for hypertension, with holding parameters Use when necessary labetalol and hydralazine when patient is nothing by mouth Maintain MAP > 65 mmHG Bumex as below Renal: Acute kidney injury secondary to ATN Nephrology following Dr. Martinez. Accurate I's and O's, Monitor urine output. Continue Hall catheter due to worsening renal failure Start scheduled Bumex 2 mg now and 1 mg every 12 hrs- 03/20/17 No signs of hydronephrosis on renal imaging, Urine eosinophils negative FEN/GI: Mild protein calorie malnutrition Hyperkalemia-resolved Hep C Continue tube feeds, hold off PEG tube as patient may be able to take PO diet once off vent Lansoprazole for GI prophylaxis Docusate sodium senna 1 tablet twice a day for bowel regimen. Diarrhea-repeat C. difficile antigen Free water 250cc every 8 hours Follow-up BMP Heme/ID: Macro Anemia Thrombocytopenia Probable Pneumonia F/U BAL 03/15-neg to date On previous cultures in BAL have been negative except 02/23 coag negative staph which is contamination Cefepime discontinued 03/19/17, DCd Flagyl and azithromycin 03/09/17-03/15/17 10/ C Diff negative Endocrine: Sliding-scale insulin to maintain euglycemia/low regimen with NovoLog every 6 hours Prophylaxis: GI Prophylaxis Lansoprazole DVT Prophylaxis SCDs/heparin subcutaneous Lines: Peripheral IVs providing adequate access at this time. Palliative care team following to assist with deciding goals of therapy Overall impression: Critically ill with acute respiratory deterioration from recurrent mucus plugging and hypoxemic respiratory failure. Intubated and trached 03/20/17 03/15/17: I discussed and updated Lore Darling (sister) over the phone: . I explained to her improvement in neurological status. She is agreeable to continued care since there is improvement, and she does not want any other invasive procedures at this time and if there is any further clinical deterioration she wants to pursue comfort measures. 03/24/17: Patient deemed by psychiatry not to have decision-making capacity. Sister Lore Darling currently is the patient's healthcare surrogate. Confirmation of healthcare surrogacy pending -requested by palliative medicine in case management as a person visited on 03/23, stating she is the patient's . Level 3 Physician Edie De La Fuente MD Mar 27, 2017 13:29
[2017-03-27] MEDS ORDERED: MIDAZOLAM HCL 5 MG/ML VIAL (1 ML) IM ONE (13:30)
[2017-03-27] MEDS ORDERED: fentaNYL CITRATE 250 MCG/5 ML AMP IV PUSH ONE (13:30)
[2017-03-27] MEDS ORDERED: ROCURONIUM INJ 50 MG/5 ML VIAL IV ONE (13:30)
[2017-03-27] MEDS: FREE WATER G-TUBE SCH ×2 (14:00→20:39)
[2017-03-27] MEDS: ARTIFICIAL TEARS OPTH SOLN 15 ML BTL EACH EYE SCH ×2 (14:00→20:39)
[2017-03-27] MEDS: RESP: ALBUTEROL 2.5 MG/3 ML NEB (PRN) NEB ×2 (15:45→19:50)
[2017-03-28] VITALS (18 sets, daily range): BP systolic 102–133; BP diastolic 68–93; PULSE 95–120; RESP 16–30; TEMP 98.4–99.2; O2SAT 95–100
[2017-03-28] MEDS: RESP: ALBUTEROL 2.5 MG/3 ML NEB (PRN) NEB ×4 (04:05→20:10)
[2017-03-28] MEDS: RESP: ACETYLCYSTEINE 10% 30 ML NEB NEB SCH ×4 (04:06→20:10)
--- NOTE | 2017-03-28 05:35 | RADRPT ---
EXAM DATE/TIME: 03/28/2017 03:58 [facility] COMPARISON: CHEST SINGLE AP, March 27, 2017, 10:33. INDICATIONS : Shortness of breath. MEDICAL HISTORY : Hepatitis C. Myocardial infarction. Arthritis. Seizures SURGICAL HISTORY : None. ENCOUNTER: Subsequent ACUITY: 3 weeks PAIN SCORE: Non-responsive. LOCATION: Bilateral chest FINDINGS: Basilar consolidation with probable small effusion again seen on the left. Right upper lung consolida tion not significantly changed. I don't see a pneumothorax. Heart size stable, mildly enlarged. Tracheostomy tube again noted. Nasogastric tube courses into the stomach. CONCLUSION: No significant change. Kilo Rowell MD on March 28, 2017 at 5:33 Board Certified Radiologist. This report was verified electronically.
[2017-03-28] MEDS: ARTIFICIAL TEARS OPTH SOLN 15 ML BTL EACH EYE SCH ×3 (05:50→21:56)
[2017-03-28] MEDS: FREE WATER G-TUBE SCH ×3 (05:50→21:53)
[2017-03-28 05:56] LABS: BICARBONATE 29.4 MEQ/L (21.0-32.0); MAGNESIUM 1.6 MG/DL (1.5-2.5); POTASSIUM 4.3 MEQ/L (3.5-5.1)
[2017-03-28] MEDS: CHLORHEXIDINE 0.12% (ORAL KIT) 15 ML CUP MT SCH ×4 (08:00→21:57)
[2017-03-28] MEDS: METOPROLOL TARTRATE 25 MG TAB PO SCH ×2 (09:00→21:53)
[2017-03-28] MEDS: BENEPROTEIN POWDER 1 PACK G-TUBE SCH ×3 (09:00→18:00)
[2017-03-28] MEDS: LANSOPRAZOLE SOLUTAB 30 MG TAB NG SCH (09:00)
[2017-03-28] MEDS: QUEtiapine FUMARATE 25 MG TAB PO SCH (09:00)
[2017-03-28] MEDS: TIOTROPIUM BROMIDE 18 MCG INH INH SCH (09:00)
[2017-03-28] MEDS: SODIUM CHLORIDE 0.9% FLUSH 10 ML FLUSH IV FLUSH SCH ×2 (09:00→21:52)
[2017-03-28] MEDS: BUDESONIDE-FORMOTEROL 160/4.5 MCG INHALER INH SCH ×2 (09:00→21:57)
[2017-03-28] MEDS: THIAMINE HCL 100 MG TAB PO SCH (09:00)
[2017-03-28] MEDS: MULTIVITAMIN TAB PO SCH (09:00)
[2017-03-28] MEDS ORDERED: MIDAZOLAM HCL 5 MG/ML VIAL (1 ML) ONE (09:27)
[2017-03-28] MEDS ORDERED: ROCURONIUM INJ 50 MG/5 ML VIAL ONE ×2 (09:28→09:33)
[2017-03-28] MEDS: BUMETANIDE INJ 1 MG/4 ML VIAL IV PUSH SCH (09:43)
[2017-03-28] MEDS: methylPREDNISolone SOD SUCC 125 MG/2 ML VIAL IV PUSH SCH ×2 (09:43→21:52)
[2017-03-28] MEDS: HEPARIN SODIUM - SQ 10,000 UNITS/ML VIAL SQ SCH ×2 (11:00→22:49)
--- NOTE | 2017-03-28 12:09 | HHI.FPPN ---
Subjective Remarks No acute events overnight. Patient seems awake and alert and he is attached to the event. Patient is not combative. He is following people in the room with his eyes, however is not following commands. Yesterday the patient had an episode of hypoxemic respiratory failure with desaturations into the 70s; pulmonary toileting was done with suction, 100% FiO2 administered, and Mucomyst restarted. Objective Vitals Vital Signs Date Time Temp Pulse Resp B/P (MAP) Pulse Ox O2 Delivery O2 Flow Rate FiO2 03/28/17 08:43 95 30 03/28/17 06:00 99 03/28/17 04:07 95 30 03/28/17 04:00 95 03/28/17 04:00 40 03/28/17 04:00 98.5 95 26 106/68 (81) 95 03/28/17 02:00 102 03/28/17 00:00 40 03/28/17 00:00 102 03/28/17 00:00 98.6 102 18 122/79 (93) 100 03/27/17 23:32 99 30 03/27/17 22:00 101 03/27/17 20:00 40 03/27/17 20:00 105 03/27/17 20:00 98.5 105 16 121/88 (99) 100 03/27/17 19:51 100 40 03/27/17 19:00 100 Mechanical Ventilator 40 03/27/17 18:00 101 03/27/17 16:00 40 03/27/17 16:00 99.4 96 16 139/90 (106) 99 03/27/17 16:00 101 03/27/17 15:48 97 40 03/27/17 14:00 88 I/O 03/27/17 03/27/17 03/27/17 03/28/17 03/28/17 03/28/17 07:00 15:00 23:00 07:00 15:00 23:00 Intake Total 1212 ml 565 ml 874 ml Output Total 600 ml 1050 ml 450 ml Balance 612 ml -485 ml 424 ml Tube Feeding 712 ml 315 ml 624 ml Other 500 ml 250 ml 250 ml Output Urine Total 600 ml 1050 ml 450 ml # Voids 2 # Bowel Movements 0 2 0 Result Diagram: 03/27/17 0532 03/28/17 0422 Objective Remarks GENERAL: Patient is lying in bed asleep on T-piece on vent, but he opens his eyes to voice and/or touch. Patient leaning to his left. SKIN: Bilateral upper extremities with multiple well-healing scabs on right arm. HEENT: On trach to vent. Pupils grossly symmetrical and reactive. Sclera injected bilaterally. CARDIOVASCULAR: RRR without appreciable murmurs. grossly normal perfusion. No edema RESPIRATORY: normal rate; decreased breath sounds with rhonchi bilaterally, similar to previous exams, without wheezing GASTROINTESTINAL: Abdomen soft, non-distended, non-tender GENITOURINARY: catheter draining yellow urine MUSCULOSKELETAL: no cyanosis, no edema. No calf tenderness. NEURO: Patient is lying in bed asleep, but he opens his eyes to voice. Procedures * 03/20/17 -Bronchoscopy & Tracheostomy placement * 03/20/17 -Reintubation * 03/19/17 -Extubated * 03/18/17 -Bronchoscopy * 03/15/17 -bronchoscopy * 03/12/17 -reintubated * 03/12/17 -medical extubated * 03/09/17 -endotracheal Intubation * 03/09/17 -Bronchoscopy Date of Insertion: Feb 23, 2017 A/P Assessment and Plan 57-year-old white male with past medical history of alcohol withdrawal presented to the ED with severe hypoglycemia and altered mental status; patient has had progressively worsening renal function and is currently being followed for renal failure and continued altered mental status. Pt recently required intubation and sedation for respiratory distress and imaging with opacification of the left lung concerning for left lung collapse in the context of mucus plugging, which was removed on 03/09 and again on 03/18 and again on 03/20. Patient has been reintubated multiple times. Tracheostomy on 03/20. Discharge Planning Pending workup for declining renal function, AMS, weaning off vent. Working on plan of care with case specialist and palliative care renal social worker. Psychiatry was consulted and determined that patient does not have decision- making capacity. We are attempting to clarify goals of care with his sister and possibly . He is currently full code. Problem List: (1) Altered mental status ICD Codes: R41.82 - Altered mental status, unspecified Status: Acute Plan: Patient on vent to trach. At this point the patient is still full code and had consented to tracheostomy, which was done on 03/20/17. Pt does not have capacity to make his own treatment decisions per psychiatry evaluation. -Seroquel 25 mg daily for agitation -IV solumedrol q12h -CPT -Continue treatment of chronic alcoholism -Continue PO multivitamin -PO thiamine -Occupational therapy recommended OT at rehabilitation (PT recommended OT). -PT, OT, ST -Continue tube feeds at 55ml/hr and 1L of free water per dietary; Seizure precautions Impression: AMS initially suspected secondary to alcoholism or polysubstance abuse; persistent. could be anoxic brain injury from hypoglycemia (2) Respiratory disease ICD Codes: J98.9 - Respiratory disorder, unspecified Status: Acute Plan: 03/21: Episode of hypoxemic respiratory failure as mentioned in history of present illness - Pulmonary toileting with suction - Stat chest x-ray: Similar to previous, however significant mucous plugging observed - Started Mucomyst -We'll attempt repeat bronchoscopy today Patient re-intubated on 03/20/17. Patient tolerated T-piece [id number] trials as well as CPAP yesterday. Stable respiratory exam. -Continue T piece trials, pulmonary toilet -Chest x-ray 03/25: Bibasilar airspace disease and pleural effusion, left greater than right, unchanged from 03/23 -Scrap Dealer consulted and appreciated -See plan above -Continue breathing treatments, O2 per CC/respiratory therapy -Mucomyst, Chest percussion with speciality bed -Levsin for secretions -Bronchial washing cultures negative. 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 Thus, patient may be unable to protect airway. Patient with repeated mucous plugging and lung collapses on imaging. Thick secretions likely due to undiagnosed COPD. (3) SAQIB (acute kidney injury) ICD Codes: N17.9 - Acute kidney failure, unspecified Status: Acute Plan: -Nephrology consulted: Diagnosed with Acute renal failure acute tubular necrosis with drug use, Non oliguric, creatinine is stable. -Monitor BMP -Bumex 1mg IV q12h (4) Hypertension ICD Codes: I10 - Essential (primary) hypertension Status: Chronic Plan: -Hold Amlodipine 10mg PO daily -Hold Hydralazine 25 mg q12h since hypotension -Hydralazine 20 mg IV push every hour when necessary for blood pressure over 160 /90 -Labetalol 20 mg IV push every 4 hours when necessary for systolic blood pressure over 160 -Metoprolol 25 mg q12h -Clonidine 0.1 mg q6h PRN For SBP >/= 170, DBP >/= 100 -Maintain MAP > 65 mmHG -Bumex as above Impression: BPs stable (5) FEN Status: Acute Plan: Fluids: none Electrolytes: Monitor and replace per protocol Nutrition: Tube feeds with free water, We cannot do swallow study to evaluate for PO until 7 days post-trach (03/27), will wait because of patient's recent deterioration GI PPx: Lansoprazole 30 mg NG/day VTE prophylaxis: Heparin 5000 units every 12 hours and SCDs Problem Qualifiers (1) Altered mental status: Qualified Codes: R41.0 - Disorientation, unspecified (2) Hypertension: Qualified Codes: I10 - Essential (primary) hypertension Bonnie Pan MD R2 Mar 28, 2017 12:09
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
--- NOTE | 2017-03-28 14:47 | HHI.NPPN ---
Subjective History of Present Illness 57-year-old male with the alcohol withdrawal, altered mental status, acute renal failure Additional Remarks s/p trach, no signs of distress Objective Data Data Vital Signs Date Time Temp Pulse Resp B/P (MAP) Pulse Ox O2 Delivery O2 Flow Rate FiO2 03/28/17 12:26 99 40 03/28/17 08:43 95 30 03/28/17 06:00 99 03/28/17 04:07 95 30 03/28/17 04:00 95 03/28/17 04:00 40 03/28/17 04:00 98.5 95 26 106/68 (81) 95 03/28/17 02:00 102 03/28/17 00:00 40 03/28/17 00:00 102 03/28/17 00:00 98.6 102 18 122/79 (93) 100 03/27/17 23:32 99 30 03/27/17 22:00 101 03/27/17 20:00 40 03/27/17 20:00 105 03/27/17 20:00 98.5 105 16 121/88 (99) 100 03/27/17 19:51 100 40 03/27/17 19:00 100 Mechanical Ventilator 40 03/27/17 18:00 101 03/27/17 16:00 40 03/27/17 16:00 99.4 96 16 139/90 (106) 99 03/27/17 16:00 101 03/27/17 15:48 97 40 -: 03/27/17 0532 03/28/17 0422 Physical Exam General Appearance: Malnourished Eyes Eye Exam: Pupils Equal Throat Throat Exam: Oral Mucosa [place] & Moist Neck Neck Exam: Neck Supple Pulmonary Resp Exam: Crackles, Rhonchi, Decreased Bases, Diminished Breath Sounds Cardiology CV Exam: Regular, Normal Sinus Rhythm Gastrointestinal/Abdomen GI Exam: Soft, Non-Tender, Bowel Sounds Present Musculoskeletal MS Remarks left shoulder sub laxation ? dislocated Extremeties Extremities Exam: Trace Edema Neurologic Neuro Exam: Obtunded Assessment/Plan Problem List: (1) SAQIB (acute kidney injury) ICD Codes: N17.9 - Acute kidney failure, unspecified Status: Acute Plan: Acute renal failure acute tubular necrosis with drug use S/P trach. Creatinine slightly improved: 2.7-> 2.3 -> 2.1 > 1.7--> 1.6 -> 1.7 HCO3 29 Good UOP on bumex 1mg IV daily - continue for now. 1.5 L UOP/ 24 hours Hepatitis C positive Ammonia not high s/p bronchoscopy with removal of mucous plug self extubated, multiple re intubations, now has Trach CT scan abdominal reviewed Subtle high density stranding medial/upper right kidney. Abnormal mass arising from/abutting spleen LUQ measuring up to 7.5 cm with small amount of calcification. FIDEL is positive 1:80, low titre. ANCA negative patient very weak will wait to see if feels better Trach collar O2 (2) Alcohol withdrawal ICD Codes: F10.239 - Alcohol dependence with withdrawal, unspecified Status: Chronic Plan: Patient remained in altered mental status (3) Hypertension ICD Codes: I10 - Essential (primary) hypertension Status: Chronic Plan: Patient's blood pressure was labile continue to monitor Problem Qualifiers (1) Alcohol withdrawal: Qualified Codes: F10.231 - Alcohol dependence with withdrawal delirium (2) Hypertension: Qualified Codes: I10 - Essential (primary) hypertension Daryl Martinez MD Mar 28, 2017 14:47
--- NOTE | 2017-03-28 17:43 | PD.PROCEDR ---
Procedure Note Procedure Procedure: Fiberoptic Bronchoscopy Diagnosis: Mucous plug Indications: Hypoxemic respiratory failure, copious thick pulmonary secretions Consent: family Anesthesia: see [facility] Description of the Procedure: The patient was sedated and mechanically ventilated. The patient was placed on 100% FIO2 and a volume control mode of ventilation. The fiberoptic bronchoscopy was inserted via 8.0 Shiley The trachea , right and left mainstem bronchi, and sub-segmental bronchi were evaluated. The endobronchial anatomy was normal. Findings: Thick tenacious cream colored secretions of left and right bronchi as well as subsegmental BAL samples: none The patient tolerated the procedure well with no hemodynamic instability or hypoxia. There were no immediate complications noted. At the conclusion of the procedure, the patient was placed back on their pre-procedure ventilatory settings. There was minimal EBL. A chest x-ray has been ordered. I personally performed the procedure. Edie Marte MD Mar 28, 2017 17:43
[2017-03-28] MEDS: LABETALOL HCL 100 MG/20 ML VIAL IV PUSH PRN (18:39)
[2017-03-28] MEDS: HYOSCYAMINE 0.125 MG TAB PO PRN (18:39)
--- NOTE | 2017-03-28 20:28 | RADRPT ---
EXAM DATE/TIME: 03/28/2017 19:04 [facility] COMPARISON: CHEST SINGLE AP, March 28, 2017, 3:58. INDICATIONS : Respiratory failure. MEDICAL HISTORY : Hepatitis C. Myocardial infarction. Arthritis. Seizures SURGICAL HISTORY : None. ENCOUNTER: Subsequent ACUITY: 1 week PAIN SCORE: Non-responsive. LOCATION: Bilateral chest FINDINGS: The tracheostomy tube is in good position. The NG tube is looped at the level of the GE junction with the distal tip seen in the distal esophagus. The heart size is normal. There is increased density at the left base. There is silhouetting of the left hemidiaphragm. The right lung is clear. Air is seen within distended small bowel. CONCLUSION: 1. NG tube looped at the GE junction region with its tip directed into the distal esophagus. 2. Left lower lobe consolidation or atelectasis. 3. Nonspecific dilated small bowel. Kilo hAuja MD on March 28, 2017 at 20:25 Board Certified Radiologist. This report was verified electronically.
[2017-03-29] VITALS (17 sets, daily range): BP systolic 91–138; BP diastolic 60–94; PULSE 72–113; RESP 16–29; TEMP 98.1–99.2; O2SAT 94–100
[2017-03-29] MEDS: RESP: ACETYLCYSTEINE 10% 30 ML NEB NEB SCH ×3 (04:00→17:13)
[2017-03-29] MEDS: RESP: ALBUTEROL 2.5 MG/3 ML NEB (PRN) NEB ×4 (04:00→19:48)
[2017-03-29] MEDS: FREE WATER G-TUBE SCH ×3 (05:46→21:58)
[2017-03-29] MEDS: ARTIFICIAL TEARS OPTH SOLN 15 ML BTL EACH EYE SCH ×3 (05:46→21:58)
--- NOTE | 2017-03-29 06:36 | RADRPT ---
EXAM DATE/TIME: 03/29/2017 05:08 [place] COMPARISON: CHEST SINGLE AP, March 28, 2017, 19:04. INDICATIONS : Respiratory failure MEDICAL HISTORY : Hepatitis C. Myocardial infarction. Arthritis. Seizures SURGICAL HISTORY : None. ENCOUNTER: Subsequent ACUITY: 1 week PAIN SCORE: Non-responsive. LOCATION: Bilateral chest FINDINGS: Worsening consolidation with volume loss and a probable moderate size effusion seen on the left. Righ t lung remains reasonably clear. I don't see a pneumothorax on either side. Mild cardiomegaly similar to before. Tracheostomy tube again noted. There is a nasogastric tube coiled back on itself and tip in the lower esophagus. CONCLUSION: 1. Worsening consolidation and effusion at the left lung base. 2. Nasogastric tube is coiled back on itself, tip in the lower esophagus. Kilo Rowell MD on March 29, 2017 at 6:33 Board Certified Radiologist. This report was verified electronically.
[2017-03-29 06:43] LABS: BICARBONATE 30.9 MEQ/L (21.0-32.0); MAGNESIUM 1.8 MG/DL (1.5-2.5); POTASSIUM 4.4 MEQ/L (3.5-5.1)
[2017-03-29] MEDS: CHLORHEXIDINE 0.12% (ORAL KIT) 15 ML CUP MT SCH ×4 (08:00→20:15)
--- NOTE | 2017-03-29 08:44 | HHI.CCPN ---
Subjective Remarks/Hospital Course This is a 57-year-old male that was found down and admitted to this hospital 02/23/2017. Urine tox screen revealed patient was positive for benzodiazepines and cocaine at that time. Since admission the patient has been on a [facility] protocol, neurology has been consulted Dr. Wayne, with continued supportive care. Over the last 48 hours the patient was noted to have elevation in his creatinine with a significant decrease in urine output acute renal failure nephrology was consulted the patient continues on gentle diuresis and received 80 mg of Lasix IV this afternoon and is currently on sodium bicarbonate infusion at 110 cc/an hour. Due to the patient's respiratory insufficiency, and altered mental status concern for possible continued respiratory decompensation the patient was transferred to the ICU, and critical care was consulted for management. Upon entering the patient's room the patient was noted to be lethargic having received 4 mg of Ativan in the last 4 hours, but opens eyes to sternal rub. The patient was noted to have O2 saturation of 95% on O2 via nasal cannula at 5 L with no accessory respiratory efforts. Stat ABG was ordered pending, to rule out CO2 narcosis. Since admission to ICU the patient was noted to diuresis of 700 cc. 03/03: Afebrile. The patient did not receive any Ativan since 3 PM on 03/02/17. The patient rested well overnight, eventually waking and responding. This a.m. the patient's noted to be sitting up in bed, alert and responsive. Librium has been added to medication regimen for alcohol withdrawal. Noted to be oriented to date of unable to provide name or place at this time. Essential tremors, fine tremors noted. The patient severely weak and unable to feed self without assistance. The patient's diet was advanced to regular diet, tolerating well, 100% consumption. PO meds were held since admission to ICU secondary to lethargy, all by mouth meds resumed this a.m.. The patient currently is compliant following commands, inappropriate responses, with noted incomprehensible words, language at times. Patient is noted to be very weak. Nasal cannula O2 has been weaned down to approximately 3 L, the patient appears in no respiratory distress. Subjective: 03/09: Reconsulted secondary acute respiratory failure. Chest x-ray earlier in the morning revealed collapse versus large pleural effusion left side. Patient oxygen requirements had increased from 4 L to a nonrebreather mask. CT thorax revealed likely mucous plugging/collapsed lung left side. Small to moderate left pleural effusion. Patient was combative upon arrival ICU in place in soft restraints. Due to mental status/mucous plugging patient was electively intubated using 20 mg etomidate and 50 mg, rocuronium. Patient was bronched which revealed thick white mucous plugging in the left and right mainstem. These were lavaged to left upper lobe/lingula and left lower lobe, right upper middle and lower lobes. Samples were sent see orders. Currently sedated with propofol and fentanyl drips. 03/10: Tonic seizures today when propofol stopped. Seizures ceased with propofol bolus. Left pneumonia persists but improved aeration after bronch . 03/11: Gas exchange acceptable. Continues to have tonic "seizures" when propofol is lightened. EEG 03/10 states no seizures but we will repeat EEG again today with stimulation and off propofol. Can't extubate until this "seizure" activity is resolved. Vomited tube feeds, will reduce and add reglan. 03/12: Off sedation tolerating CPAP even though intermittently apneic. Appears to follows commands but weekly on the upper extremity. No obvious seizures. EEG negative for seizure 03/11/17. Creatinine slightly improved to 2.8 from 3 03/13: Failed extubation on 03/12. Currently sedated, orally intubated on mechanical ventilation. Has thick copious respiratory secretions per PRUNER. 03/14: Remains sedated, orally intubated on mechanical ventilation. Feeling C Pap trials. Not following commands on lightening sedation. 03/15: Remains intubated encephalopathy. Left lower lobe infiltrate again indicating probable mucous plugging/collapse. Palliative care meeting with family today. I recommend tracheostomy and PEG tube placement. D/W palliative care team 03/16: Off sedation since yesterday 5PM. Eyes open spontaneously. Following commands bilateral upper extremity, he squeezes with both hands. Discussed with Dr. Kingston. Will continue weaning attempt with plan for wean to extubate. s/p bronchoscopy yesterday, with re expansion of L lung. Has moderate secretions. I have updated Lore Darling (sister) about improvement in neuro exam. See below 03/17: Tolerated CPAP 7 hours yesterday. Currently on CPAP. Lethargic/somnolent but follows commands, gives thumbs up on bilateral UE. Creat stable. UO 750 ml in 24 hours. BAL negative to date 03/18: Remains intubated off sedation. There is further improvement in neuro exam, able to move both feet to command, gives thumbs up on both upper extremities. Chest x-ray shows complete white out of the left lung field. We' ll plan for emergency bronchoscopy 03/19: Extubated yesterday, overnight appeared to be having mucus plugging involving L lung. But currently patient is saturating well. He somnolent but wakes up easily and nodding appropriately and following commands, in the bilateral upper extremity 03/20: Today around 5.30 AM, patient acutely became hypoxemic with diminished breath sounds on the left lung field. Placed on nonrebreather clinical exam was consistent with left lower lobe mucus plugging according to Dr. Chadwick. With aggressive suctioning and Mucomyst and DuoNeb breathing treatments, patient 's air entry and saturation improved slightly. Currently on 100% nonrebreather oxygen saturation 90-92% tachypneic but not in severe distress. I discussed tracheostomy with the patient, witnessed by RN Aniket and Dixie. I explained to him that If he gets reintubated he will need tracheostomy due to frequent mucus plugging, with left lung collapse. Patient understands tracheostomy procedure, and wants tracheostomy done in case of reintubation. 03/21: Re intubated yesterday for LLL collapse. Tracheostomy performed yesterday afternoon. Difficult bronchoscopy with therapeutic bronchoscope and multiple attempts to remove the mucus plugging because of the very thick tenacious nature of the plugs. Continue breathing treatments Mucomyst for now. Chest percussion with speciality bed. 03/22: The patient tolerated trach collar trials approximately 1 hour yesterday. The patient continues to have thick secretions, aggressive pulmonary toileting continues with chest percussion. Today the patient indicated that he wanted to be placed back on DNR status. Discussion with family medicine primary service team for cognitive evaluation by psychiatry to assess competency in making this decision. Will continue care as planned, overweight recommendations from psychiatry and palliative medicine. Will hold medication for agitation until assessment is performed, and continue supportive care. 03/23: Acute events overnight. Patient tolerated T piece trials for approximately 5 hours yesterday. Psychiatry consulted seen today. The patient was deemed not competent, full report pending. 03/24: Patient became agitated during the night received 2 doses of Ativan which were ineffective Seroquel added to medication regimen low dose. The patient successfully underwent T piece trials for 6.5 hours yesterday as well as CPAP for 3 hours. Psychiatry was consulted and the patient was deemed not to have any decision-making capacity and sister continues to be the healthcare surrogate for the patient. Yesterday a female individual into the room and stated that she was the patient's palliative care was re-consulted as well as case management to follow-up if the individual is the patient's next of kin. The patient's sister states she was unaware that the patient was . 03/25: Patient noted to be less agitated today Seroquel was initiated yesterday. Patient tolerated T piece trials for approximately 4 hours yesterday. Creatinine improving today. 03/26: No acute events overnight. the patient has been maintained on TPiece trials for 12 hours. 03/27: This a.m. the patient was noted to be in hypoxemic respiratory failure, O2 sat precipitously dropped into the 70s. Aggressive pulmonary toileting with suctioning thick tenacious mucus was obtained, stat chest x-ray, 100% FiO2 with clearing. Mucomyst 2 days ordered .Plan bronchoscopy if no improvement. 03/28: Unable to wean ventilator. 03/29: Severely agitated intermittently. Ventilator dependent. Objective Vital Signs Date Time Temp Pulse Resp B/P (MAP) Pulse Ox O2 Delivery O2 Flow Rate FiO2 03/29/17 08:07 97 40 03/29/17 06:00 83 03/29/17 04:00 98.1 23 119/79 (92) 03/28/17 19:00 Trach Collar 03/25/17 13:42 6.00 Intake and Output 03/29/17 03/29/17 03/30/17 08:00 16:00 00:00 Intake Total 1018 ml Balance 1018 ml Result Diagram: 03/27/17 0532 03/29/17 0505 Imaging Last Impressions Chest X-Ray 03/28/17 0600 Signed Impressions: Service Date/Time: Tuesday, March 28, 2017 03:58 - CONCLUSION: No significant change. Kilo Rowell MD Abdomen X-Ray 03/13/17 0000 Signed Impressions: Service Date/Time: Monday, March 13, 2017 13:04 - CONCLUSION: 1. The tip of the NG tube is just through the GE junction and into the stomach. Cliff Mack MD Brain MRI 03/10/17 0000 Signed Impressions: Service Date/Time: Friday, March 10, 2017 15:01 - CONCLUSION: No acute infarct or other acute intracranial abnormality. Atrophy and chronic white matter changes are again noted. Kilo Rowell MD Chest CT 03/09/17 0000 Signed Impressions: Service Date/Time: Thursday, March 09, 2017 04:59 - CONCLUSION: 1. Marked volume loss in the left hemithorax with near-complete collapse of the left lower lobe/lingula. There is still some aeration in the left upper lung. Some of this is due to the moderate sized left-sided effusion although there may be element of airway obstruction/mucus plugging as well. 2. Small right-sided effusion with become atelectatic changes in the right base. 3. Patchy biapical airspace disease.. Tone Henry MD Shoulder X-Ray 03/05/17 0000 Signed Impressions: Service Date/Time: Sunday, March 05, 2017 20:57 - CONCLUSION: No acute disease. Rick Sanford MD Abdomen/Pelvis CT 03/04/17 0000 Signed Impressions: Service Date/Time: Saturday, March 04, 2017 10:31 - CONCLUSION: 1. There is no hydronephrosis or renal abnormality to explain the renal failure. However, there is subtle high density stranding along the medial and upper pole of the right kidney. Suggest followup CT to assess for change. 2. Abnormal mass arising from or abutting the spleen in the left upper quadrant measuring up to 7.5 cm. It contains a small amount of calcification. Suggest correlating with any prior imaging study that could offer additional characterization. If none are available suggest followup imaging to confirm stability and consider contrast enhanced CT or MRI for further characterization when patient condition permits. 3. Small bilateral pleural effusions, left larger than right, with associated compressive atelectasis. 4. Severe coronary artery calcification. Kilo Coulter MD Renal Ultrasound 02/27/17 0000 Signed Impressions: Service Date/Time: Monday, February 27, 2017 20:36 - CONCLUSION: 1. Mildly dilated left renal collecting system. Kidneys normal in size. Trace free fluid. Ruy Hussein MD Head CT 02/23/17 0000 Signed Impressions: Service Date/Time: Thursday, February 23, 2017 07:38 - CONCLUSION: No significant change has occurred. Maximus Pavon MD Last Impressions Shoulder X-Ray 03/05/17 0000 Signed Impressions: Service Date/Time: Sunday, March 05, 2017 20:57 - CONCLUSION: No acute disease. Rick Sanford MD Abdomen/Pelvis CT 03/04/17 0000 Signed Impressions: Service Date/Time: Saturday, March 04, 2017 10:31 - CONCLUSION: 1. There is no hydronephrosis or renal abnormality to explain the renal failure. However, there is subtle high density stranding along the medial and upper pole of the right kidney. Suggest followup CT to assess for change. 2. Abnormal mass arising from or abutting the spleen in the left upper quadrant measuring up to 7.5 cm. It contains a small amount of calcification. Suggest correlating with any prior imaging study that could offer additional characterization. If none are available suggest followup imaging to confirm stability and consider contrast enhanced CT or MRI for further characterization when patient condition permits. 3. Small bilateral pleural effusions, left larger than right, with associated compressive atelectasis. 4. Severe coronary artery calcification. Kilo Coulter MD Chest X-Ray 03/02/17 0000 Signed Impressions: Service Date/Time: Thursday, March 02, 2017 08:18 - CONCLUSION: Increasing consolidative changes left base. Nasir Mack MD FACR Renal Ultrasound 02/27/17 0000 Signed Impressions: Service Date/Time: Monday, February 27, 2017 20:36 - CONCLUSION: 1. Mildly dilated left renal collecting system. Kidneys normal in size. Trace free fluid. Ruy Hussein MD Brain MRI 02/25/17 0000 Signed Impressions: Service Date/Time: Saturday, February 25, 2017 12:37 - CONCLUSION: Atrophy, periventricular changes without evidence for acute infarction. Nasir Mack MD FACR Head CT 02/23/17 0000 Signed Impressions: Service Date/Time: Thursday, February 23, 2017 07:38 - CONCLUSION: No significant change has occurred. Maximus Pavon MD Objective Remarks GENERAL: 57-year-old male, agitated. SKIN: Warm and dry. HEAD: Atraumatic. Normocephalic. EYES: Pupils equal and round around 2 mm bilaterally and reactive. ENT: No nasal bleeding or discharge. NECK: Trachea midline. Thick white/cream tenacious secretions emanating from tracheostomy. Trach site clean. CARDIOVASCULAR: RRR, tachycardic. S1, S2 no S4. Without murmur. No JVD. RESPIRATORY: Diminished breath sounds left lung thomas. Bilateral rhonchi. GASTROINTESTINAL: Abdomen soft, non-tender, nondistended. Active bowel sounds. MUSCULOSKELETAL: Extremities without without significant peripheral edema. Well perfused. NEUROLOGICAL: Follows commands bilateral upper and lower extremities. Moves extremities x 4 spontaneously. Answering yes and no questions. Agitated. Procedures 03/28: Bronchoscopy Date of Insertion: Feb 23, 2017 A/P Assessment and Plan Neuro/Psych: Encephalopathy/Delirium most likely metabolic Admission with EtOH withdrawal - likely completed Polysubstance abuse including cocaine and benzodiazepines Polyneuropathy of critical illness Agitation Improved neuro exam. Was following commands, oriented to person place and time before sedation for intubation and trach 03/20/17 Wean propofol and fentanyl as tolerated Patient is followed by Dr. Rogel neurology. EEG's reveal moderate encephalopathy no epileptiform activity. MRI negative for acute findings Previously on Seroquel 25 mg at night DCd and Haldol when necessary- discontinued 03/15/17 Librium DCd 03/15/17 Seizure precautions ?Seizures 03/10-EEG negative for seizures. Continue thiamine 100 mg daily Will hold all sedative medications, continue supportive care when patient's agitated. 03/23- cognitive evaluation by Dr. Sheriff -no decision-making capacity 03/24 Ativan discontinued, Seroquel 25 mg daily Respiratory: Acute hypoxemic respiratory failure secondary to aspiration Recurrent left lower lobe collapse/mucus plugging Complete opacification of left lung field due to mucus plugging 03/18/17 s/p tracheostomy 03/20/17 Status post extubation after therapeutic bronchoscopy 03/18/17 and reintubated for left lower lobe collapse on 03/20/17 s/p Tracheostomy 03/21/17. Difficult bronchoscopy with therapeutic scope and multiple attempts to remove very thick mucus plugs from left main bronchus. Continue breathing treatments Mucomyst for now. Chest percussion with speciality bed Patient wants to continue full code and also consented for tracheostomy if he gets reintubated. Witnessed by RNs Aniket and Dixie on 03/20/17 IV Solumedrol 60 q12 03/17/17, 03/24 begin weaning process to 40 mg every 12. Was on Symbicort and Spiriva CT thorax from 03/09 revealed collapse left upper/lingula lobes with significant secretions left main bronchus. s/p bronch Improved aeration 03/10 Continue attempts at T piece trials, aggressive pulmonary toileting 03/27 reinitiated Mucomyst 2 days 03/28 Bronchoscopy Cardiovascular: Hypertension Fluid overload Amlodipine 10 mg daily, clonidine 0.1 mg 3 times a day and metoprolol 5 mg by mouth twice a day for hypertension, with holding parameters Use when necessary labetalol and hydralazine when patient is nothing by mouth Maintain MAP > 65 mmHG Bumex as below Renal: Acute kidney injury secondary to ATN Nephrology following Dr. Martinez. Accurate I's and O's, Monitor urine output. Continue Hall catheter due to worsening renal failure Start scheduled Bumex 2 mg now and 1 mg every 12 hrs- 03/20/17 No signs of hydronephrosis on renal imaging, Urine eosinophils negative FEN/GI: Mild protein calorie malnutrition Hyperkalemia-resolved Hep C Continue tube feeds, hold off PEG tube as patient may be able to take PO diet once off vent Lansoprazole for GI prophylaxis Docusate sodium senna 1 tablet twice a day for bowel regimen. Diarrhea-repeat C. difficile antigen Free water 250cc every 8 hours Follow-up BMP Heme/ID: Macro Anemia Thrombocytopenia Probable Pneumonia F/U BAL 03/15-neg to date On previous cultures in BAL have been negative except 02/23 coag negative staph which is contamination Cefepime discontinued 03/19/17, DCd Flagyl and azithromycin 03/09/17-03/15/1703/26 C Diff negative Endocrine: Sliding-scale insulin to maintain euglycemia/low regimen with NovoLog every 6 hours Prophylaxis: GI Prophylaxis Lansoprazole DVT Prophylaxis SCDs/heparin subcutaneous Lines: Peripheral IVs providing adequate access at this time. Palliative care team following to assist with deciding goals of therapy 03/15/17: I discussed and updated Lore Darling (sister) over the phone: . I explained to her improvement in neurological status. She is agreeable to continued care since there is improvement, and she does not want any other invasive procedures at this time and if there is any further clinical deterioration she wants to pursue comfort measures. 03/24/17: Patient deemed by psychiatry not to have decision-making capacity. Sister Lore Darling currently is the patient's healthcare surrogate. Confirmation of healthcare surrogacy pending -requested by palliative medicine in case management as a person visited on 03/23, stating she is the patient's . Overall impression: Critically ill with acute respiratory deterioration from recurrent mucus plugging and hypoxemic respiratory failure. Intubated and trached 03/20/17. No progress weaning from ventilator. Edward Hernandez MD Mar 29, 2017 08:44
[2017-03-29] MEDS: BUMETANIDE INJ 1 MG/4 ML VIAL IV PUSH SCH (09:00)
[2017-03-29] MEDS: SODIUM CHLORIDE 0.9% FLUSH 10 ML FLUSH IV FLUSH SCH ×2 (09:00→20:16)
[2017-03-29] MEDS: THIAMINE HCL 100 MG TAB PO SCH (09:00)
[2017-03-29] MEDS: QUEtiapine FUMARATE 25 MG TAB PO SCH ×2 (09:00→21:00)
[2017-03-29] MEDS: methylPREDNISolone SOD SUCC 125 MG/2 ML VIAL IV PUSH SCH ×2 (09:00→21:57)
[2017-03-29] MEDS: BUDESONIDE-FORMOTEROL 160/4.5 MCG INHALER INH SCH ×2 (09:00→20:16)
[2017-03-29] MEDS: LANSOPRAZOLE SOLUTAB 30 MG TAB NG SCH (09:00)
[2017-03-29] MEDS: BENEPROTEIN POWDER 1 PACK G-TUBE SCH ×3 (09:00→18:00)
[2017-03-29] MEDS: MULTIVITAMIN TAB PO SCH (09:00)
[2017-03-29] MEDS: METOPROLOL TARTRATE 25 MG TAB PO SCH ×2 (09:00→21:00)
[2017-03-29] MEDS: TIOTROPIUM BROMIDE 18 MCG INH INH SCH (09:00)
[2017-03-29] MEDS: HEPARIN SODIUM - SQ 10,000 UNITS/ML VIAL SQ SCH (10:53)
--- NOTE | 2017-03-29 11:47 | HHI.FPPN ---
Subjective Remarks Patient seen and examined bedside this morning. Per shipboard intelligence analyst no acute events overnight. The patient appears to be irritable. His eyes follow people in the room, however he does not follow commands. The patient had another bronchoscopy yesterday to remove mucous plugs. The shipboard intelligence analyst continues to relay that the prognosis for this patient is poor, seeing as he frequently goes into respiratory distress and requires bronchoscopy. (Bonnie Pan MD R2) Objective Vitals Vital Signs Date Time Temp Pulse Resp B/P (MAP) Pulse Ox O2 Delivery O2 Flow Rate FiO2 03/29/17 08:07 97 40 03/29/17 06:00 83 03/29/17 04:01 100 40 03/29/17 04:00 40 03/29/17 04:00 98.1 91 23 119/79 (92) 98 03/29/17 04:00 91 03/29/17 02:00 92 03/29/17 00:00 99.2 96 23 132/89 (103) 95 03/29/17 00:00 96 03/29/17 00:00 40 03/28/17 22:00 98 03/28/17 20:11 99 30 03/28/17 20:00 40 03/28/17 20:00 98 03/28/17 20:00 98.4 99 22 126/87 (100) 97 03/28/17 19:00 96 Trach Collar 40 03/28/17 18:00 120 03/28/17 17:45 100 100 03/28/17 16:29 100 40 03/28/17 16:00 104 03/28/17 16:00 99.2 104 30 127/84 (98) 100 03/28/17 16:00 30 03/28/17 14:00 98 03/28/17 12:26 99 40 03/28/17 12:00 98 03/28/17 12:00 30 03/28/17 12:00 98.4 98 26 133/93 (106) 100 I/O 03/28/17 03/28/17 03/28/17 03/29/17 03/29/17 03/29/17 07:00 15:00 23:00 07:00 15:00 23:00 Intake Total 874 ml 502 ml 1018 ml Output Total 450 ml 3 ml Balance 424 ml 499 ml 1018 ml Intake Oral 0 ml Tube Feeding 624 ml 252 ml 768 ml Other 250 ml 250 ml 250 ml Output Urine Total 450 ml 3 ml # Voids 5 # Bowel Movements 0 1 1 (Bonnie Pan MD R2) Result Diagram: 03/27/17 0532 03/29/17 0505 Objective Remarks GENERAL: Patient is lying in bed and struggling against restraints on T-piece on vent, he is visibly irritated patient leaning to his left. SKIN: Bilateral upper extremities with multiple well-healing scabs on right arm. HEENT: On trach to vent. Pupils grossly symmetrical and reactive. Sclera injected bilaterally. CARDIOVASCULAR: RRR without appreciable murmurs. grossly normal perfusion. No edema RESPIRATORY: normal rate; decreased breath sounds on left with rhonchi bilaterally, similar to previous exams, without wheezing GASTROINTESTINAL: Abdomen soft, non-distended, non-tender GENITOURINARY: catheter draining yellow urine MUSCULOSKELETAL: no cyanosis, no edema. No calf tenderness. NEURO: Patient is lying in bed asleep, but he opens his eyes to voice. Procedures * 03/20/17 -Bronchoscopy & Tracheostomy placement * 03/20/17 -Reintubation * 03/19/17 -Extubated * 03/18/17 -Bronchoscopy * 03/15/17 -bronchoscopy * 03/12/17 -reintubated * 03/12/17 -medical extubated * 03/09/17 -endotracheal Intubation * 03/09/17 -Bronchoscopy (Bonnie Pan MD R2) Date of Insertion: Feb 23, 2017 (Bonnie Pan MD R2) A/P Assessment and Plan 57-year-old white male with past medical history of alcohol withdrawal presented to the ED with severe hypoglycemia and altered mental status; patient has had progressively worsening renal function and is currently being followed for renal failure and continued altered mental status. Pt recently required intubation and sedation for respiratory distress and imaging with opacification of the left lung concerning for left lung collapse in the context of mucus plugging, which was removed on 03/09 and again on 03/18 and again on 03/20. Patient has been reintubated multiple times. Tracheostomy on 03/20. Discharge Planning Pending workup for declining renal function, AMS, weaning off vent. Working on plan of care with case assistant and palliative care social sciences research scientist. Psychiatry was consulted and determined that patient does not have decision- making capacity. We are attempting to clarify goals of care with his sister and possibly . He is currently full code. (Bonnie Pan MD R2) Attending Attestation Pt. examined and case discussed with resident physicians. I have read the above note and agree with the assessment and plan as discussed with me. I was involved in all medical decision making for this patient. Aris Martinez MD (Aris Martinez MD) Problem List: (1) Altered mental status ICD Codes: R41.82 - Altered mental status, unspecified Status: Acute Plan: Status post bronchoscopy on 03/28; patient visibly irritated -Seroquel 25 mg daily --> increase to seroquel 25 BID -IV solumedrol q12h -CPT -Continue treatment of chronic alcoholism -Continue PO multivitamin -PO thiamine -Occupational therapy recommended OT at rehabilitation (PT recommended OT). -PT, OT, ST -Continue tube feeds at 55ml/hr and 1L of free water per dietary; Seizure precautions Impression: AMS initially suspected secondary to alcoholism or polysubstance abuse; persistent. could be anoxic brain injury from hypoglycemia (2) Respiratory disease ICD Codes: J98.9 - Respiratory disorder, unspecified Status: Acute Plan: 03/21: Episode of hypoxemic respiratory failure as mentioned in history of present illness - Pulmonary toileting with suction - Stat chest x-ray: Similar to previous, however significant mucous plugging observed - Started Mucomyst -We'll attempt repeat bronchoscopy today Patient re-intubated on 03/20/17. Patient tolerated T-piece [id number] trials as well as CPAP yesterday. Stable respiratory exam. -Continue T piece trials, pulmonary toilet -Chest x-ray 03/25: Bibasilar airspace disease and pleural effusion, left greater than right, unchanged from 03/23 -Hand Tile Maker consulted and appreciated -See plan above -Continue breathing treatments, O2 per CC/respiratory therapy -Mucomyst, Chest percussion with speciality bed -Levsin for secretions -Bronchial washing cultures negative. -Wean Solumedrol Impression: Encephalopathic with likely CONCRETE BLOCK MOLDER damage from polysubstance abuse and/ or anoxic brain injury from hypoglycemia. Thus, patient may be unable to protect airway. Patient with repeated mucous plugging and lung collapses on imaging. Thick secretions likely due to undiagnosed COPD. (3) SAQIB (acute kidney injury) ICD Codes: N17.9 - Acute kidney failure, unspecified Status: Acute Plan: -Nephrology consulted: Diagnosed with Acute renal failure acute tubular necrosis with drug use, Non oliguric, creatinine is stable. -Monitor BMP -Bumex 1mg IV q12h (4) Hypertension ICD Codes: I10 - Essential (primary) hypertension Status: Chronic Plan: -Hold Amlodipine 10mg PO daily -Hold Hydralazine 25 mg q12h since hypotension -Hydralazine 20 mg IV push every hour when necessary for blood pressure over 160 /90 -Labetalol 20 mg IV push every 4 hours when necessary for systolic blood pressure over 160 -Metoprolol 25 mg q12h -Clonidine 0.1 mg q6h PRN For SBP >/= 170, DBP >/= 100 -Maintain MAP > 65 mmHG -Bumex as above Impression: BPs stable (5) FEN Status: Acute Plan: Fluids: none Electrolytes: Monitor and replace per protocol Nutrition: Tube feeds with free water, We cannot do swallow study to evaluate for PO until 7 days post-trach (03/27), will wait because of patient's recent deterioration GI PPx: Lansoprazole 30 mg NG/day VTE prophylaxis: Heparin 5000 units every 12 hours and SCDs (Bonnie Pan MD R2) Problem Qualifiers (1) Altered mental status: Qualified Codes: R41.0 - Disorientation, unspecified (2) Hypertension: Qualified Codes: I10 - Essential (primary) hypertension Bonnie Pan MD R2 Mar 29, 2017 11:47 Aris Martinez MD Mar 29, 2017 22:52
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
--- NOTE | 2017-03-29 14:02 | HHI.NPPN ---
Subjective History of Present Illness 57-year-old male with the alcohol withdrawal, altered mental status, acute renal failure Additional Remarks s/p trach, no signs of distress Objective Data Data Vital Signs Date Time Temp Pulse Resp B/P (MAP) Pulse Ox O2 Delivery O2 Flow Rate FiO2 03/29/17 12:24 98 40 03/29/17 12:00 98.5 89 16 117/77 (90) 98 03/29/17 12:00 40 03/29/17 12:00 89 03/29/17 10:00 86 03/29/17 08:07 97 40 03/29/17 08:00 113 03/29/17 08:00 40 03/29/17 08:00 98.5 113 24 138/94 (109) 97 03/29/17 07:00 97 Trach Collar 40 03/29/17 06:00 83 03/29/17 04:01 100 40 03/29/17 04:00 40 03/29/17 04:00 98.1 91 23 119/79 (92) 98 03/29/17 04:00 91 03/29/17 02:00 92 03/29/17 00:00 99.2 96 23 132/89 (103) 95 03/29/17 00:00 96 03/29/17 00:00 40 03/28/17 22:00 98 03/28/17 20:11 99 30 03/28/17 20:00 40 03/28/17 20:00 98 03/28/17 20:00 98.4 99 22 126/87 (100) 97 03/28/17 19:00 96 Trach Collar 40 03/28/17 18:00 120 03/28/17 17:45 100 100 03/28/17 16:29 100 40 03/28/17 16:00 104 03/28/17 16:00 99.2 104 30 127/84 (98) 100 03/28/17 16:00 30 -: 03/27/17 0532 03/29/17 0505 Physical Exam General Appearance: Malnourished Eyes Eye Exam: Pupils Equal Throat Throat Exam: Oral Mucosa [place] & Moist Neck Neck Exam: Neck Supple Pulmonary Resp Exam: Crackles, Rhonchi, Decreased Bases, Diminished Breath Sounds Cardiology CV Exam: Regular, Normal Sinus Rhythm Gastrointestinal/Abdomen GI Exam: Soft, Non-Tender, Bowel Sounds Present Musculoskeletal MS Remarks left shoulder sub laxation ? dislocated Extremeties Extremities Exam: Trace Edema Neurologic Neuro Exam: Obtunded Assessment/Plan Problem List: (1) SAQIB (acute kidney injury) ICD Codes: N17.9 - Acute kidney failure, unspecified Status: Chronic Plan: Acute renal failure acute tubular necrosis with drug use S/P trach. Creatinine slightly improved: 2.7-> 2.3 -> 2.1 > 1.7--> 1.6 -> 1.7-->1.8 HCO3 30.9 on Bumex Good UOP on bumex 1mg IV daily - continue for now. 1.5 L UOP/ 24 hours Hepatitis C positive Ammonia not high s/p bronchoscopy with removal of mucous plug self extubated, multiple re intubations, now has Trach CT scan abdominal reviewed Subtle high density stranding medial/upper right kidney. Abnormal mass arising from/abutting spleen LUQ measuring up to 7.5 cm with small amount of calcification. FIDEL is positive 1:80, low titre. ANCA negative patient very weak will wait to see if feels better Trach collar O2 (2) Alcohol withdrawal ICD Codes: F10.239 - Alcohol dependence with withdrawal, unspecified Status: Chronic Plan: Patient remained in altered mental status (3) Hypertension ICD Codes: I10 - Essential (primary) hypertension Status: Chronic Plan: Patient's blood pressure was labile continue to monitor Problem Qualifiers (1) Alcohol withdrawal: Qualified Codes: F10.231 - Alcohol dependence with withdrawal delirium (2) Hypertension: Qualified Codes: I10 - Essential (primary) hypertension Daryl Martinez MD Mar 29, 2017 14:02
[2017-03-30] VITALS (16 sets, daily range): BP systolic 107–130; BP diastolic 70–85; PULSE 86–113; RESP 16–26; TEMP 97.8–99.9; O2SAT 93–97
[2017-03-30] MEDS: HEPARIN SODIUM - SQ 10,000 UNITS/ML VIAL SQ SCH ×2 (01:10→22:20)
[2017-03-30] MEDS: HYOSCYAMINE 0.125 MG TAB PO PRN (01:10)
[2017-03-30 05:17] LABS: POTASSIUM 4.4 MEQ/L (3.5-5.1)
[2017-03-30] MEDS: ARTIFICIAL TEARS OPTH SOLN 15 ML BTL EACH EYE SCH ×2 (06:34→22:20)
[2017-03-30] MEDS: FREE WATER G-TUBE SCH ×2 (06:35→22:20)
[2017-03-30] MEDS: CHLORHEXIDINE 0.12% (ORAL KIT) 15 ML CUP MT SCH ×4 (08:00→20:47)
[2017-03-30] MEDS: TIOTROPIUM BROMIDE 18 MCG INH INH SCH (09:00)
[2017-03-30] MEDS: BUDESONIDE-FORMOTEROL 160/4.5 MCG INHALER INH SCH ×2 (09:00→20:47)
[2017-03-30] MEDS: SODIUM CHLORIDE 0.9% FLUSH 10 ML FLUSH IV FLUSH SCH ×2 (09:00→20:47)
[2017-03-30] MEDS: BENEPROTEIN POWDER 1 PACK G-TUBE SCH (09:32)
[2017-03-30] MEDS: BUMETANIDE INJ 1 MG/4 ML VIAL IV PUSH SCH (09:33)
[2017-03-30] MEDS: LANSOPRAZOLE SOLUTAB 30 MG TAB NG SCH (09:35)
[2017-03-30] MEDS: MULTIVITAMIN TAB PO SCH (09:35)
[2017-03-30] MEDS: methylPREDNISolone SOD SUCC 125 MG/2 ML VIAL IV PUSH SCH ×2 (09:35→22:21)
[2017-03-30] MEDS: THIAMINE HCL 100 MG TAB PO SCH (09:35)
[2017-03-30] MEDS: QUEtiapine FUMARATE 25 MG TAB PO SCH ×2 (09:35→21:00)
[2017-03-30] MEDS: METOPROLOL TARTRATE 25 MG TAB PO SCH ×2 (09:35→22:21)
--- NOTE | 2017-03-30 10:38 | HHI.CCPN ---
Subjective Remarks/Hospital Course This is a 57-year-old male that was found down and admitted to this hospital 02/23/2017. Urine tox screen revealed patient was positive for benzodiazepines and cocaine at that time. Since admission the patient has been on a [facility] protocol, neurology has been consulted Dr. Wayne, with continued supportive care. Over the last 48 hours the patient was noted to have elevation in his creatinine with a significant decrease in urine output acute renal failure nephrology was consulted the patient continues on gentle diuresis and received 80 mg of Lasix IV this afternoon and is currently on sodium bicarbonate infusion at 110 cc/an hour. Due to the patient's respiratory insufficiency, and altered mental status concern for possible continued respiratory decompensation the patient was transferred to the ICU, and critical care was consulted for management. Upon entering the patient's room the patient was noted to be lethargic having received 4 mg of Ativan in the last 4 hours, but opens eyes to sternal rub. The patient was noted to have O2 saturation of 95% on O2 via nasal cannula at 5 L with no accessory respiratory efforts. Stat ABG was ordered pending, to rule out CO2 narcosis. Since admission to ICU the patient was noted to diuresis of 700 cc. 03/03: Afebrile. The patient did not receive any Ativan since 3 PM on 03/02/17. The patient rested well overnight, eventually waking and responding. This a.m. the patient's noted to be sitting up in bed, alert and responsive. Librium has been added to medication regimen for alcohol withdrawal. Noted to be oriented to date of unable to provide name or place at this time. Essential tremors, fine tremors noted. The patient severely weak and unable to feed self without assistance. The patient's diet was advanced to regular diet, tolerating well, 100% consumption. PO meds were held since admission to ICU secondary to lethargy, all by mouth meds resumed this a.m.. The patient currently is compliant following commands, inappropriate responses, with noted incomprehensible words, language at times. Patient is noted to be very weak. Nasal cannula O2 has been weaned down to approximately 3 L, the patient appears in no respiratory distress. Subjective: 03/09: Reconsulted secondary acute respiratory failure. Chest x-ray earlier in the morning revealed collapse versus large pleural effusion left side. Patient oxygen requirements had increased from 4 L to a nonrebreather mask. CT thorax revealed likely mucous plugging/collapsed lung left side. Small to moderate left pleural effusion. Patient was combative upon arrival ICU in place in soft restraints. Due to mental status/mucous plugging patient was electively intubated using 20 mg etomidate and 50 mg, rocuronium. Patient was bronched which revealed thick white mucous plugging in the left and right mainstem. These were lavaged to left upper lobe/lingula and left lower lobe, right upper middle and lower lobes. Samples were sent see orders. Currently sedated with propofol and fentanyl drips. 03/10: Tonic seizures today when propofol stopped. Seizures ceased with propofol bolus. Left pneumonia persists but improved aeration after bronch . 03/11: Gas exchange acceptable. Continues to have tonic "seizures" when propofol is lightened. EEG 03/10 states no seizures but we will repeat EEG again today with stimulation and off propofol. Can't extubate until this "seizure" activity is resolved. Vomited tube feeds, will reduce and add reglan. 03/12: Off sedation tolerating CPAP even though intermittently apneic. Appears to follows commands but weekly on the upper extremity. No obvious seizures. EEG negative for seizure 03/11/17. Creatinine slightly improved to 2.8 from 3 03/13: Failed extubation on 03/12. Currently sedated, orally intubated on mechanical ventilation. Has thick copious respiratory secretions per [employer]. 03/14: Remains sedated, orally intubated on mechanical ventilation. Feeling C Pap trials. Not following commands on lightening sedation. 03/15: Remains intubated encephalopathy. Left lower lobe infiltrate again indicating probable mucous plugging/collapse. Palliative care meeting with family today. I recommend tracheostomy and PEG tube placement. D/W palliative care team 03/16: Off sedation since yesterday 5PM. Eyes open spontaneously. Following commands bilateral upper extremity, he squeezes with both hands. Discussed with Dr. Kingston. Will continue weaning attempt with plan for wean to extubate. s/p bronchoscopy yesterday, with re expansion of L lung. Has moderate secretions. I have updated Lore Darling (sister) about improvement in neuro exam. See below 03/17: Tolerated CPAP 7 hours yesterday. Currently on CPAP. Lethargic/somnolent but follows commands, gives thumbs up on bilateral UE. Creat stable. UO 750 ml in 24 hours. BAL negative to date 03/18: Remains intubated off sedation. There is further improvement in neuro exam, able to move both feet to command, gives thumbs up on both upper extremities. Chest x-ray shows complete white out of the left lung field. We' ll plan for emergency bronchoscopy 03/19: Extubated yesterday, overnight appeared to be having mucus plugging involving L lung. But currently patient is saturating well. He somnolent but wakes up easily and nodding appropriately and following commands, in the bilateral upper extremity 03/20: Today around 5.30 AM, patient acutely became hypoxemic with diminished breath sounds on the left lung field. Placed on nonrebreather clinical exam was consistent with left lower lobe mucus plugging according to Dr. Chadwick. With aggressive suctioning and Mucomyst and DuoNeb breathing treatments, patient 's air entry and saturation improved slightly. Currently on 100% nonrebreather oxygen saturation 90-92% tachypneic but not in severe distress. I discussed tracheostomy with the patient, witnessed by RN Aniket and Dixie. I explained to him that If he gets reintubated he will need tracheostomy due to frequent mucus plugging, with left lung collapse. Patient understands tracheostomy procedure, and wants tracheostomy done in case of reintubation. 03/21: Re intubated yesterday for LLL collapse. Tracheostomy performed yesterday afternoon. Difficult bronchoscopy with therapeutic bronchoscope and multiple attempts to remove the mucus plugging because of the very thick tenacious nature of the plugs. Continue breathing treatments Mucomyst for now. Chest percussion with speciality bed. 03/22: The patient tolerated trach collar trials approximately 1 hour yesterday. The patient continues to have thick secretions, aggressive pulmonary toileting continues with chest percussion. Today the patient indicated that he wanted to be placed back on DNR status. Discussion with family medicine primary service team for cognitive evaluation by psychiatry to assess competency in making this decision. Will continue care as planned, overweight recommendations from psychiatry and palliative medicine. Will hold medication for agitation until assessment is performed, and continue supportive care. 03/23: Acute events overnight. Patient tolerated T piece trials for approximately 5 hours yesterday. Psychiatry consulted seen today. The patient was deemed not competent, full report pending. 03/24: Patient became agitated during the night received 2 doses of Ativan which were ineffective Seroquel added to medication regimen low dose. The patient successfully underwent T piece trials for 6.5 hours yesterday as well as CPAP for 3 hours. Psychiatry was consulted and the patient was deemed not to have any decision-making capacity and sister continues to be the healthcare surrogate for the patient. Yesterday a female individual into the room and stated that she was the patient's palliative care was re-consulted as well as case management to follow-up if the individual is the patient's next of kin. The patient's sister states she was unaware that the patient was . 03/25: Patient noted to be less agitated today Seroquel was initiated yesterday. Patient tolerated T piece trials for approximately 4 hours yesterday. Creatinine improving today. 03/26: No acute events overnight. the patient has been maintained on TPiece trials for 12 hours. 03/27: This a.m. the patient was noted to be in hypoxemic respiratory failure, O2 sat precipitously dropped into the 70s. Aggressive pulmonary toileting with suctioning thick tenacious mucus was obtained, stat chest x-ray, 100% FiO2 with clearing. Mucomyst 2 days ordered .Plan bronchoscopy if no improvement. 03/28: Unable to wean ventilator. 03/29: Severely agitated intermittently. Ventilator dependent. 03/30: DNR status now per patient's prior directives. Continued issues with lung collapse. Objective Vital Signs Date Time Temp Pulse Resp B/P (MAP) Pulse Ox O2 Delivery O2 Flow Rate FiO2 03/30/17 08:02 93 40 03/30/17 07:00 Trach Collar 03/30/17 06:00 96 03/30/17 04:00 98.5 16 107/70 (82) Intake and Output 03/30/17 03/30/17 03/31/17 08:00 16:00 00:00 Intake Total 250 ml Balance 250 ml Result Diagram: 03/27/17 0532 03/30/17 0400 Imaging Last Impressions Chest X-Ray 03/28/17 0600 Signed Impressions: Service Date/Time: Tuesday, March 28, 2017 03:58 - CONCLUSION: No significant change. Kilo Rowell MD Abdomen X-Ray 03/13/17 0000 Signed Impressions: Service Date/Time: Monday, March 13, 2017 13:04 - CONCLUSION: 1. The tip of the NG tube is just through the GE junction and into the stomach. Cliff Mack MD Brain MRI 03/10/17 0000 Signed Impressions: Service Date/Time: Friday, March 10, 2017 15:01 - CONCLUSION: No acute infarct or other acute intracranial abnormality. Atrophy and chronic white matter changes are again noted. Kilo Rowell MD Chest CT 03/09/17 0000 Signed Impressions: Service Date/Time: Thursday, March 09, 2017 04:59 - CONCLUSION: 1. Marked volume loss in the left hemithorax with near-complete collapse of the left lower lobe/lingula. There is still some aeration in the left upper lung. Some of this is due to the moderate sized left-sided effusion although there may be element of airway obstruction/mucus plugging as well. 2. Small right-sided effusion with become atelectatic changes in the right base. 3. Patchy biapical airspace disease.. Tone Henry MD Shoulder X-Ray 03/05/17 0000 Signed Impressions: Service Date/Time: Sunday, March 05, 2017 20:57 - CONCLUSION: No acute disease. Rick Sanford MD Abdomen/Pelvis CT 03/04/17 0000 Signed Impressions: Service Date/Time: Saturday, March 04, 2017 10:31 - CONCLUSION: 1. There is no hydronephrosis or renal abnormality to explain the renal failure. However, there is subtle high density stranding along the medial and upper pole of the right kidney. Suggest followup CT to assess for change. 2. Abnormal mass arising from or abutting the spleen in the left upper quadrant measuring up to 7.5 cm. It contains a small amount of calcification. Suggest correlating with any prior imaging study that could offer additional characterization. If none are available suggest followup imaging to confirm stability and consider contrast enhanced CT or MRI for further characterization when patient condition permits. 3. Small bilateral pleural effusions, left larger than right, with associated compressive atelectasis. 4. Severe coronary artery calcification. Kilo Coulter MD Renal Ultrasound 02/27/17 0000 Signed Impressions: Service Date/Time: Monday, February 27, 2017 20:36 - CONCLUSION: 1. Mildly dilated left renal collecting system. Kidneys normal in size. Trace free fluid. Ruy Hussein MD Head CT 02/23/17 0000 Signed Impressions: Service Date/Time: Thursday, February 23, 2017 07:38 - CONCLUSION: No significant change has occurred. Maximus Pavon MD Last Impressions Shoulder X-Ray 03/05/17 Signed Impressions: Service Date/Time: Sunday, March 05, 2017 20:57 - CONCLUSION: No acute disease. Rick Sanford MD Abdomen/Pelvis CT 03/04/17 Signed Impressions: Service Date/Time: Saturday, March 04, 2017 10:31 - CONCLUSION: 1. There is no hydronephrosis or renal abnormality to explain the renal failure. However, there is subtle high density stranding along the medial and upper pole of the right kidney. Suggest followup CT to assess for change. 2. Abnormal mass arising from or abutting the spleen in the left upper quadrant measuring up to 7.5 cm. It contains a small amount of calcification. Suggest correlating with any prior imaging study that could offer additional characterization. If none are available suggest followup imaging to confirm stability and consider contrast enhanced CT or MRI for further characterization when patient condition permits. 3. Small bilateral pleural effusions, left larger than right, with associated compressive atelectasis. 4. Severe coronary artery calcification. Kilo Coulter MD Chest X-Ray 03/02/17 Signed Impressions: Service Date/Time: Thursday, March 02, 2017 08:18 - CONCLUSION: Increasing consolidative changes left base. Nasir Mack MD FACR Renal Ultrasound 02/27/17 Signed Impressions: Service Date/Time: Monday, February 27, 2017 20:36 - CONCLUSION: 1. Mildly dilated left renal collecting system. Kidneys normal in size. Trace free fluid. Ruy Hussein MD Brain MRI 02/25/17 0000 Signed Impressions: Service Date/Time: Saturday, February 25, 2017 12:37 - CONCLUSION: Atrophy, periventricular changes without evidence for acute infarction. Nasir Mack MD FACR Head CT 02/23/17 0000 Signed Impressions: Service Date/Time: Thursday, February 23, 2017 07:38 - CONCLUSION: No significant change has occurred. Maximus Pavon MD Objective Remarks GENERAL: 57-year-old male, agitated. SKIN: Warm and dry. HEAD: Atraumatic. Normocephalic. EYES: Pupils equal and round around 2 mm bilaterally and reactive. ENT: No nasal bleeding or discharge. NECK: Trachea midline. Trach site clean. White secretions. CARDIOVASCULAR: RRR, tachycardic. S1, S2 no S4. Without murmur. No JVD. RESPIRATORY: Diminished breath sounds left lung thomas. Bilateral rhonchi. GASTROINTESTINAL: Abdomen soft, non-tender, nondistended. Active bowel sounds. MUSCULOSKELETAL: Extremities without without significant peripheral edema. Well perfused. NEUROLOGICAL: Follows commands bilateral upper and lower extremities. Moves extremities x 4 spontaneously. Agitated. Procedures 03/28: Bronchoscopy Date of Insertion: Feb 23, 2017 A/P Assessment and Plan Neuro/Psych: Encephalopathy/Delirium most likely metabolic Admission with EtOH withdrawal - likely completed Polysubstance abuse including cocaine and benzodiazepines Polyneuropathy of critical illness Agitation Improved neuro exam. Was following commands, oriented to person place and time before sedation for intubation and trach 03/20/17 Wean propofol and fentanyl as tolerated Patient is followed by Dr. Rogel neurology. EEG's reveal moderate encephalopathy no epileptiform activity. MRI negative for acute findings Previously on Seroquel 25 mg at night DCd and Haldol when necessary- discontinued 03/15/17 Librium DCd 03/15/17 Seizure precautions ?Seizures 03/10-EEG negative for seizures. Continue thiamine 100 mg daily Will hold all sedative medications, continue supportive care when patient's agitated. 03/23- cognitive evaluation by Dr. Sheriff -no decision-making capacity 03/24 Ativan discontinued, Seroquel 25 mg daily Respiratory: Acute hypoxemic respiratory failure secondary to aspiration Recurrent left lower lobe collapse/mucus plugging Complete opacification of left lung field due to mucus plugging 03/18/17 s/p tracheostomy 03/20/17 Status post extubation after therapeutic bronchoscopy 03/18/17 and reintubated for left lower lobe collapse on 03/20/17 s/p Tracheostomy 03/21/17. Difficult bronchoscopy with therapeutic scope and multiple attempts to remove very thick mucus plugs from left main bronchus. Continue breathing treatments Mucomyst for now. Chest percussion with speciality bed Patient wants to continue full code and also consented for tracheostomy if he gets reintubated. Witnessed by RNs Aniket and Dixie on 03/20/17 IV Solumedrol 60 q12 03/17/17, 03/24 begin weaning process to 40 mg every 12. Was on Symbicort and Spiriva CT thorax from 03/09 revealed collapse left upper/lingula lobes with significant secretions left main bronchus. s/p bronch Improved aeration 03/10 Continue attempts at T piece trials, aggressive pulmonary toileting 03/27 reinitiated Mucomyst 2 days 03/28 Bronchoscopy Cardiovascular: Hypertension Fluid overload Amlodipine 10 mg daily, clonidine 0.1 mg 3 times a day and metoprolol 5 mg by mouth twice a day for hypertension, with holding parameters Use when necessary labetalol and hydralazine when patient is nothing by mouth Maintain MAP > 65 mmHG Bumex as below Renal: Acute kidney injury secondary to ATN Nephrology following Dr. Martinez. Accurate I's and O's, Monitor urine output. Continue Hall catheter due to worsening renal failure Start scheduled Bumex 2 mg now and 1 mg every 12 hrs- 03/20/17 No signs of hydronephrosis on renal imaging, Urine eosinophils negative FEN/GI: Mild protein calorie malnutrition Hyperkalemia-resolved Hep C Continue tube feeds, hold off PEG tube as patient may be able to take PO diet once off vent Lansoprazole for GI prophylaxis Docusate sodium senna 1 tablet twice a day for bowel regimen. Diarrhea-repeat C. difficile antigen Free water 250cc every 8 hours Follow-up BMP Heme/ID: Macro Anemia Thrombocytopenia Probable Pneumonia F/U BAL 03/15-neg to date On previous cultures in BAL have been negative except 02/23 coag negative staph which is contamination Cefepime discontinued 03/19/17, DCd Flagyl and azithromycin 03/09/17-03/15/1703/26 C Diff negative Endocrine: Sliding-scale insulin to maintain euglycemia/low regimen with NovoLog every 6 hours Prophylaxis: GI Prophylaxis Lansoprazole DVT Prophylaxis SCDs/heparin subcutaneous Lines: Peripheral IVs providing adequate access at this time. Palliative care team following to assist with deciding goals of therapy Overall impression: Critically ill with acute respiratory deterioration from recurrent mucus plugging and hypoxemic respiratory failure. Intubated and trached 03/20/17. No progress weaning from ventilator. Prognosis very poor for weaning from ventilator. Edward Hernandez MD Mar 30, 2017 10:37
--- NOTE | 2017-03-30 11:25 | HHI.FPPN ---
Subjective Remarks Patient seen bedside this morning. Patient is continuing to need frequent suctioning of mucous. Trials to wean off vent have not been successful. Patient appears to be less agitated today than yesterday. Case discussed with palliative, and intensivists. Per the decision of healthcare proxy, intensivists have changed status to DNR (Bonnie Pan MD R2) Objective Vitals Vital Signs Date Time Temp Pulse Resp B/P (MAP) Pulse Ox O2 Delivery O2 Flow Rate FiO2 03/30/17 08:02 93 40 03/30/17 08:00 99.6 95 16 123/79 (94) 94 03/30/17 08:00 40 03/30/17 07:00 94 Trach Collar 45 03/30/17 06:00 96 03/30/17 04:21 94 40 03/30/17 04:00 40 03/30/17 04:00 98.5 92 16 107/70 (82) 94 03/30/17 04:00 92 03/30/17 02:00 96 03/30/17 01:11 96 40 03/30/17 00:00 96 03/30/17 00:00 40 03/30/17 00:00 98.2 96 16 112/71 (85) 95 03/29/17 22:00 86 03/29/17 20:00 40 03/29/17 20:00 98.7 89 16 91/60 (70) 94 03/29/17 20:00 89 03/29/17 19:50 95 40 03/29/17 19:00 98 Trach Collar 40 03/29/17 18:00 98 03/29/17 17:13 97 40 03/29/17 16:00 99.0 102 29 120/78 (92) 97 03/29/17 16:00 102 03/29/17 16:00 40 03/29/17 14:00 72 03/29/17 12:24 98 40 03/29/17 12:00 98.5 89 16 117/77 (90) 98 03/29/17 12:00 40 03/29/17 12:00 89 I/O 03/29/17 03/29/17 03/29/17 03/30/17 03/30/17 03/30/17 07:00 15:00 23:00 07:00 15:00 23:00 Intake Total 1018 ml 250 ml 250 ml Balance 1018 ml 250 ml 250 ml Intake Oral 0 ml Tube Feeding 768 ml Other 250 ml 250 ml 250 ml # Voids 5 6 3 # Bowel Movements 1 6 0 (Bonnie Pan MD R2) Result Diagram: 03/27/17 0532 03/30/17 0400 Objective Remarks GENERAL: Patient is awake and eyes following people in room lying in bed, on vent, less irritated than yesterday patient leaning to his left. SKIN: Bilateral upper extremities with multiple well-healing scabs on right arm. HEENT: On trach to vent. Pupils grossly symmetrical and reactive. Sclera injected bilaterally. CARDIOVASCULAR: RRR without appreciable murmurs. grossly normal perfusion. No edema RESPIRATORY: normal rate; decreased breath sounds on left with rhonchi bilaterally, slightly improved and more clear, without wheezing GASTROINTESTINAL: Abdomen soft, non-distended, non-tender GENITOURINARY: catheter draining yellow urine MUSCULOSKELETAL: no cyanosis, no edema. No calf tenderness. NEURO: Patient is lying in bed asleep, but he opens his eyes to voice. Procedures * 03/20/17 -Bronchoscopy & Tracheostomy placement * 03/20/17 -Reintubation * 03/19/17 -Extubated * 03/18/17 -Bronchoscopy * 03/15/17 -bronchoscopy * 03/12/17 -reintubated * 03/12/17 -medical extubated * 03/09/17 -endotracheal Intubation * 03/09/17 -Bronchoscopy (Bonnie Pan MD R2) Date of Insertion: Feb 23, 2017 (Bonnie Pan MD R2) A/P Assessment and Plan 57-year-old white male with past medical history of alcohol withdrawal presented to the ED with severe hypoglycemia and altered mental status; patient has had progressively worsening renal function and is currently being followed for renal failure and continued altered mental status. Pt recently required intubation and sedation for respiratory distress and imaging with opacification of the left lung concerning for left lung collapse in the context of mucus plugging, which was removed on 03/09 and again on 03/18 and again on 03/20. Patient has been reintubated multiple times. Tracheostomy on 03/20. Discharge Planning Working on plan of care with case management manager and palliative care social media manager. Psychiatry was consulted and determined that patient does not have decision- making capacity. Healthcare proxy (sister): Decision for DNR. (Bonnie Pan MD R2) Attending Attestation Pt. examined and case discussed with resident physicians. I have read the above note and agree with the assessment and plan as discussed with me. I was involved in all medical decision making for this patient. Aris Martinez MD (Aris Martinez MD) Problem List: (1) Altered mental status ICD Codes: R41.82 - Altered mental status, unspecified Status: Acute Plan: Status post bronchoscopy on 03/28; patient visibly irritated -Seroquel 25 mg BID for agitation -IV solumedrol q12h -CPT -Continue treatment of chronic alcoholism -Continue PO multivitamin -PO thiamine -Occupational therapy recommended OT at rehabilitation (PT recommended OT). -PT, OT, ST -Continue tube feeds at 55ml/hr and 1L of free water per dietary; Seizure precautions Impression: AMS initially suspected secondary to alcoholism or polysubstance abuse; persistent. could be anoxic brain injury from hypoglycemia (2) Respiratory disease ICD Codes: J98.9 - Respiratory disorder, unspecified Status: Acute Plan: 03/27: Episode of hypoxemic respiratory failure, needed bronchoscopy to remove mucous plugs - Cont Pulmonary toileting with suction - ventilator dependent Patient re-intubated on 03/20/17. Impression: Encephalopathic with likely [employer] damage from polysubstance abuse and/ or anoxic brain injury from hypoglycemia. Thus, patient may be unable to protect airway. Patient with repeated mucous plugging and lung collapses on imaging. Thick secretions likely due to undiagnosed COPD. (3) SAQIB (acute kidney injury) ICD Codes: N17.9 - Acute kidney failure, unspecified Status: Chronic Plan: -Nephrology consulted: Diagnosed with Acute renal failure acute tubular necrosis with drug use, Non oliguric, creatinine is stable. -Monitor BMP -Bumex 1mg IV q12h (4) Hypertension ICD Codes: I10 - Essential (primary) hypertension Status: Chronic Plan: -Hold Amlodipine 10mg PO daily -Hold Hydralazine 25 mg q12h since hypotension -Hydralazine 20 mg IV push every hour when necessary for blood pressure over 160 /90 -Labetalol 20 mg IV push every 4 hours when necessary for systolic blood pressure over 160 -Metoprolol 25 mg q12h -Clonidine 0.1 mg q6h PRN For SBP >/= 170, DBP >/= 100 -Maintain MAP > 65 mmHG -Bumex as above Impression: BPs stable (5) FEN Status: Acute Plan: Fluids: none Electrolytes: Monitor and replace per protocol Nutrition: Tube feeds with free water, We cannot do swallow study to evaluate for PO until 7 days post-trach (03/27), will wait because of patient's recent deterioration GI PPx: Lansoprazole 30 mg NG/day VTE prophylaxis: Heparin 5000 units every 12 hours and SCDs (Bonnie Pan MD R2) Problem Qualifiers (1) Altered mental status: Qualified Codes: R41.0 - Disorientation, unspecified (2) Hypertension: Qualified Codes: I10 - Essential (primary) hypertension Bonnie Pan MD R2 Mar 30, 2017 11:25 Aris Martinez MD Mar 30, 2017 16:04
--- NOTE | 2017-03-30 13:02 | HHI.NPPN ---
Subjective History of Present Illness 57-year-old male with the alcohol withdrawal, altered mental status, acute renal failure Additional Remarks s/p trach, no signs of distress but unable to wean off the vent CPAP Objective Data Data Vital Signs Date Time Temp Pulse Resp B/P (MAP) Pulse Ox O2 Delivery O2 Flow Rate FiO2 03/30/17 12:00 96 T-piece 6.00 40 03/30/17 10:00 102 03/30/17 08:02 93 40 03/30/17 08:00 99.6 95 16 123/79 (94) 94 03/30/17 08:00 95 03/30/17 08:00 40 03/30/17 07:00 94 Trach Collar 45 03/30/17 06:00 96 03/30/17 04:21 94 40 03/30/17 04:00 40 03/30/17 04:00 98.5 92 16 107/70 (82) 94 03/30/17 04:00 92 03/30/17 02:00 96 03/30/17 01:11 96 40 03/30/17 00:00 96 03/30/17 00:00 40 03/30/17 00:00 98.2 96 16 112/71 (85) 95 03/29/17 22:00 86 03/29/17 20:00 40 03/29/17 20:00 98.7 89 16 91/60 (70) 94 03/29/17 20:00 89 03/29/17 19:50 95 40 03/29/17 19:00 98 Trach Collar 40 03/29/17 18:00 98 03/29/17 17:13 97 40 03/29/17 16:00 99.0 102 29 120/78 (92) 97 03/29/17 16:00 102 03/29/17 16:00 40 03/29/17 14:00 72 -: 03/27/17 0532 03/30/17 0400 Physical Exam General Appearance: Malnourished Eyes Eye Exam: Pupils Equal Throat Throat Exam: Oral Mucosa [place] & Moist Neck Neck Exam: Neck Supple Pulmonary Resp Exam: Crackles, Rhonchi, Decreased Bases, Diminished Breath Sounds Cardiology CV Exam: Regular, Normal Sinus Rhythm Gastrointestinal/Abdomen GI Exam: Soft, Non-Tender, Bowel Sounds Present Musculoskeletal MS Remarks left shoulder sub laxation ? dislocated Extremeties Extremities Exam: Trace Edema Neurologic Neuro Exam: Obtunded Assessment/Plan Problem List: (1) SAQIB (acute kidney injury) ICD Codes: N17.9 - Acute kidney failure, unspecified Status: Chronic Plan: Acute renal failure acute tubular necrosis with drug use S/P trach./vent unable to wean Creatinine slightly improved: 2.7-> 2.3 -> 2.1 > 1.7--> 1.6 -> 1.7-->1.8 --> 1.5 HCO3 28 on Bumex Good UOP on bumex 1mg IV daily - continue for now. Hepatitis C positive Ammonia not high s/p bronchoscopy with removal of mucous plug self extubated, multiple re intubations, now has Trach CT scan abdominal reviewed Subtle high density stranding medial/upper right kidney. Abnormal mass arising from/abutting spleen LUQ measuring up to 7.5 cm with small amount of calcification. FIDEL is positive 1:80, low titre. ANCA negative patient very weak will wait to see if feels better Trach collar O2 (2) Alcohol withdrawal ICD Codes: F10.239 - Alcohol dependence with withdrawal, unspecified Status: Chronic Plan: Patient remained in altered mental status (3) Hypertension ICD Codes: I10 - Essential (primary) hypertension Status: Chronic Plan: Patient's blood pressure was labile continue to monitor Problem Qualifiers (1) Alcohol withdrawal: Qualified Codes: F10.231 - Alcohol dependence with withdrawal delirium (2) Hypertension: Qualified Codes: I10 - Essential (primary) hypertension Daryl Martinez MD Mar 30, 2017 13:02
[2017-03-31] VITALS (19 sets, daily range): BP systolic 102–142; BP diastolic 67–89; PULSE 89–108; RESP 16–35; TEMP 98.1–99.5; O2SAT 88–96
[2017-03-31] MEDS: ARTIFICIAL TEARS OPTH SOLN 15 ML BTL EACH EYE SCH ×3 (05:36→22:02)
[2017-03-31] MEDS: FREE WATER G-TUBE SCH ×3 (05:37→22:00)
[2017-03-31] MEDS: CHLORHEXIDINE 0.12% (ORAL KIT) 15 ML CUP MT SCH ×4 (08:00→22:00)
--- NOTE | 2017-03-31 08:50 | HHI.CCPN ---
Subjective Remarks/Hospital Course This is a 57-year-old male that was found down and admitted to this hospital 02/23/2017. Urine tox screen revealed patient was positive for benzodiazepines and cocaine at that time. Since admission the patient has been on a [facility] protocol, neurology has been consulted Dr. Wayne, with continued supportive care. Over the last 48 hours the patient was noted to have elevation in his creatinine with a significant decrease in urine output acute renal failure nephrology was consulted the patient continues on gentle diuresis and received 80 mg of Lasix IV this afternoon and is currently on sodium bicarbonate infusion at 110 cc/an hour. Due to the patient's respiratory insufficiency, and altered mental status concern for possible continued respiratory decompensation the patient was transferred to the ICU, and critical care was consulted for management. Upon entering the patient's room the patient was noted to be lethargic having received 4 mg of Ativan in the last 4 hours, but opens eyes to sternal rub. The patient was noted to have O2 saturation of 95% on O2 via nasal cannula at 5 L with no accessory respiratory efforts. Stat ABG was ordered pending, to rule out CO2 narcosis. Since admission to ICU the patient was noted to diuresis of 700 cc. 03/03: Afebrile. The patient did not receive any Ativan since 3 PM on 03/02/17. The patient rested well overnight, eventually waking and responding. This a.m. the patient's noted to be sitting up in bed, alert and responsive. Librium has been added to medication regimen for alcohol withdrawal. Noted to be oriented to date of unable to provide name or place at this time. Essential tremors, fine tremors noted. The patient severely weak and unable to feed self without assistance. The patient's diet was advanced to regular diet, tolerating well, 100% consumption. PO meds were held since admission to ICU secondary to lethargy, all by mouth meds resumed this a.m.. The patient currently is compliant following commands, inappropriate responses, with noted incomprehensible words, language at times. Patient is noted to be very weak. Nasal cannula O2 has been weaned down to approximately 3 L, the patient appears in no respiratory distress. Subjective: 03/09: Reconsulted secondary acute respiratory failure. Chest x-ray earlier in the morning revealed collapse versus large pleural effusion left side. Patient oxygen requirements had increased from 4 L to a nonrebreather mask. CT thorax revealed likely mucous plugging/collapsed lung left side. Small to moderate left pleural effusion. Patient was combative upon arrival ICU in place in soft restraints. Due to mental status/mucous plugging patient was electively intubated using 20 mg etomidate and 50 mg, rocuronium. Patient was bronched which revealed thick white mucous plugging in the left and right mainstem. These were lavaged to left upper lobe/lingula and left lower lobe, right upper middle and lower lobes. Samples were sent see orders. Currently sedated with propofol and fentanyl drips. 03/10: Tonic seizures today when propofol stopped. Seizures ceased with propofol bolus. Left pneumonia persists but improved aeration after bronch . 03/11: Gas exchange acceptable. Continues to have tonic "seizures" when propofol is lightened. EEG 03/10 states no seizures but we will repeat EEG again today with stimulation and off propofol. Can't extubate until this "seizure" activity is resolved. Vomited tube feeds, will reduce and add reglan. 03/12: Off sedation tolerating CPAP even though intermittently apneic. Appears to follows commands but weekly on the upper extremity. No obvious seizures. EEG negative for seizure 03/11/17. Creatinine slightly improved to 2.8 from 3 03/13: Failed extubation on 03/12. Currently sedated, orally intubated on mechanical ventilation. Has thick copious respiratory secretions per DIRECTOR CHEMISTRY. 03/14: Remains sedated, orally intubated on mechanical ventilation. Feeling C Pap trials. Not following commands on lightening sedation. 03/15: Remains intubated encephalopathy. Left lower lobe infiltrate again indicating probable mucous plugging/collapse. Palliative care meeting with family today. I recommend tracheostomy and PEG tube placement. D/W palliative care team 03/16: Off sedation since yesterday 5PM. Eyes open spontaneously. Following commands bilateral upper extremity, he squeezes with both hands. Discussed with Dr. Kingston. Will continue weaning attempt with plan for wean to extubate. s/p bronchoscopy yesterday, with re expansion of L lung. Has moderate secretions. I have updated Lore Darling (sister) about improvement in neuro exam. See below 03/17: Tolerated CPAP 7 hours yesterday. Currently on CPAP. Lethargic/somnolent but follows commands, gives thumbs up on bilateral UE. Creat stable. UO 750 ml in 24 hours. BAL negative to date 03/18: Remains intubated off sedation. There is further improvement in neuro exam, able to move both feet to command, gives thumbs up on both upper extremities. Chest x-ray shows complete white out of the left lung field. We' ll plan for emergency bronchoscopy 03/19: Extubated yesterday, overnight appeared to be having mucus plugging involving L lung. But currently patient is saturating well. He somnolent but wakes up easily and nodding appropriately and following commands, in the bilateral upper extremity 03/20: Today around 5.30 AM, patient acutely became hypoxemic with diminished breath sounds on the left lung field. Placed on nonrebreather clinical exam was consistent with left lower lobe mucus plugging according to Dr. Chadwick. With aggressive suctioning and Mucomyst and DuoNeb breathing treatments, patient 's air entry and saturation improved slightly. Currently on 100% nonrebreather oxygen saturation 90-92% tachypneic but not in severe distress. I discussed tracheostomy with the patient, witnessed by RN Aniket and Dixie. I explained to him that If he gets reintubated he will need tracheostomy due to frequent mucus plugging, with left lung collapse. Patient understands tracheostomy procedure, and wants tracheostomy done in case of reintubation. 03/21: Re intubated yesterday for LLL collapse. Tracheostomy performed yesterday afternoon. Difficult bronchoscopy with therapeutic bronchoscope and multiple attempts to remove the mucus plugging because of the very thick tenacious nature of the plugs. Continue breathing treatments Mucomyst for now. Chest percussion with speciality bed. 03/22: The patient tolerated trach collar trials approximately 1 hour yesterday. The patient continues to have thick secretions, aggressive pulmonary toileting continues with chest percussion. Today the patient indicated that he wanted to be placed back on DNR status. Discussion with family medicine primary service team for cognitive evaluation by psychiatry to assess competency in making this decision. Will continue care as planned, overweight recommendations from psychiatry and palliative medicine. Will hold medication for agitation until assessment is performed, and continue supportive care. 03/23: Acute events overnight. Patient tolerated T piece trials for approximately 5 hours yesterday. Psychiatry consulted seen today. The patient was deemed not competent, full report pending. 03/24: Patient became agitated during the night received 2 doses of Ativan which were ineffective Seroquel added to medication regimen low dose. The patient successfully underwent T piece trials for 6.5 hours yesterday as well as CPAP for 3 hours. Psychiatry was consulted and the patient was deemed not to have any decision-making capacity and sister continues to be the healthcare surrogate for the patient. Yesterday a female individual into the room and stated that she was the patient's palliative care was re-consulted as well as case management to follow-up if the individual is the patient's next of kin. The patient's sister states she was unaware that the patient was . 03/25: Patient noted to be less agitated today Seroquel was initiated yesterday. Patient tolerated T piece trials for approximately 4 hours yesterday. Creatinine improving today. 03/26: No acute events overnight. the patient has been maintained on TPiece trials for 12 hours. 03/27: This a.m. the patient was noted to be in hypoxemic respiratory failure, O2 sat precipitously dropped into the 70s. Aggressive pulmonary toileting with suctioning thick tenacious mucus was obtained, stat chest x-ray, 100% FiO2 with clearing. Mucomyst 2 days ordered .Plan bronchoscopy if no improvement. 03/28: Unable to wean ventilator. 03/29: Severely agitated intermittently. Ventilator dependent. 03/30: DNR status now per patient's prior directives. Continued issues with lung collapse. 03/31: Minor irritation below trach site with break in skin. Objective Vital Signs Date Time Temp Pulse Resp B/P (MAP) Pulse Ox O2 Delivery O2 Flow Rate FiO2 03/31/17 06:00 100 03/31/17 04:54 96 40 03/31/17 04:00 98.1 16 102/70 (81) 03/30/17 19:00 Trach Collar 03/30/17 12:00 6.00 Intake and Output 03/31/17 03/31/17 04/01/17 08:00 16:00 00:00 Intake Total 1175 ml Output Total 225 ml Balance 950 ml Result Diagram: 03/27/17 0532 03/30/17 0400 Imaging Last Impressions Chest X-Ray 03/28/17 0600 Signed Impressions: Service Date/Time: Tuesday, March 28, 2017 03:58 - CONCLUSION: No significant change. Kilo Rowell MD Abdomen X-Ray 03/13/17 0000 Signed Impressions: Service Date/Time: Monday, March 13, 2017 13:04 - CONCLUSION: 1. The tip of the NG tube is just through the GE junction and into the stomach. Cliff Mack MD Brain MRI 03/10/17 0000 Signed Impressions: Service Date/Time: Friday, March 10, 2017 15:01 - CONCLUSION: No acute infarct or other acute intracranial abnormality. Atrophy and chronic white matter changes are again noted. Kilo Rowell MD Chest CT 03/09/17 0000 Signed Impressions: Service Date/Time: Thursday, March 09, 2017 04:59 - CONCLUSION: 1. Marked volume loss in the left hemithorax with near-complete collapse of the left lower lobe/lingula. There is still some aeration in the left upper lung. Some of this is due to the moderate sized left-sided effusion although there may be element of airway obstruction/mucus plugging as well. 2. Small right-sided effusion with become atelectatic changes in the right base. 3. Patchy biapical airspace disease.. Tone Henry MD Shoulder X-Ray 03/05/17 0000 Signed Impressions: Service Date/Time: Sunday, March 05, 2017 20:57 - CONCLUSION: No acute disease. Rick Sanford MD Abdomen/Pelvis CT 03/04/17 0000 Signed Impressions: Service Date/Time: Saturday, March 04, 2017 10:31 - CONCLUSION: 1. There is no hydronephrosis or renal abnormality to explain the renal failure. However, there is subtle high density stranding along the medial and upper pole of the right kidney. Suggest followup CT to assess for change. 2. Abnormal mass arising from or abutting the spleen in the left upper quadrant measuring up to 7.5 cm. It contains a small amount of calcification. Suggest correlating with any prior imaging study that could offer additional characterization. If none are available suggest followup imaging to confirm stability and consider contrast enhanced CT or MRI for further characterization when patient condition permits. 3. Small bilateral pleural effusions, left larger than right, with associated compressive atelectasis. 4. Severe coronary artery calcification. Kilo Coulter MD Renal Ultrasound 02/27/17 0000 Signed Impressions: Service Date/Time: Monday, February 27, 2017 20:36 - CONCLUSION: 1. Mildly dilated left renal collecting system. Kidneys normal in size. Trace free fluid. Ruy Hussein MD Head CT 02/23/17 0000 Signed Impressions: Service Date/Time: Thursday, February 23, 2017 07:38 - CONCLUSION: No significant change has occurred. Maximus Pavon MD Last Impressions Shoulder X-Ray 03/05/17 0000 Signed Impressions: Service Date/Time: Sunday, March 05, 2017 20:57 - CONCLUSION: No acute disease. Rick Sanford MD Abdomen/Pelvis CT 03/04/17 0000 Signed Impressions: Service Date/Time: Saturday, March 04, 2017 10:31 - CONCLUSION: 1. There is no hydronephrosis or renal abnormality to explain the renal failure. However, there is subtle high density stranding along the medial and upper pole of the right kidney. Suggest followup CT to assess for change. 2. Abnormal mass arising from or abutting the spleen in the left upper quadrant measuring up to 7.5 cm. It contains a small amount of calcification. Suggest correlating with any prior imaging study that could offer additional characterization. If none are available suggest followup imaging to confirm stability and consider contrast enhanced CT or MRI for further characterization when patient condition permits. 3. Small bilateral pleural effusions, left larger than right, with associated compressive atelectasis. 4. Severe coronary artery calcification. Kilo Coulter MD Chest X-Ray 03/02/17 0000 Signed Impressions: Service Date/Time: Thursday, March 02, 2017 08:18 - CONCLUSION: Increasing consolidative changes left base. Nasir Mack MD FACR Renal Ultrasound 02/27/17 0000 Signed Impressions: Service Date/Time: Monday, February 27, 2017 20:36 - CONCLUSION: 1. Mildly dilated left renal collecting system. Kidneys normal in size. Trace free fluid. Ruy Hussein MD Brain MRI 02/25/17 0000 Signed Impressions: Service Date/Time: Saturday, February 25, 2017 12:37 - CONCLUSION: Atrophy, periventricular changes without evidence for acute infarction. Nasir Mack MD FACR Head CT 02/23/17 0000 Signed Impressions: Service Date/Time: Thursday, February 23, 2017 07:38 - CONCLUSION: No significant change has occurred. Maximus Pavon MD Objective Remarks GENERAL: 57-year-old male, agitated. SKIN: Warm and dry. HEAD: Atraumatic. Normocephalic. EYES: Pupils equal and round around 2 mm bilaterally and reactive. ENT: No nasal bleeding or discharge. NECK: Trachea midline. Trach site with pressure wound at lower half. White secretions. CARDIOVASCULAR: RRR, tachycardic. S1, S2 no S4. Without murmur. No JVD. RESPIRATORY: Diminished breath sounds left lung thomas. Bilateral rhonchi. GASTROINTESTINAL: Abdomen soft, non-tender, nondistended. Active bowel sounds. MUSCULOSKELETAL: Extremities without without significant peripheral edema. Well perfused. NEUROLOGICAL: Follows commands bilateral upper and lower extremities. Moves extremities x 4 spontaneously. Agitated. Procedures 03/28: Bronchoscopy Date of Insertion: Feb 23, 2017 A/P Assessment and Plan Neuro/Psych: Encephalopathy/Delirium most likely metabolic Admission with EtOH withdrawal - likely completed Polysubstance abuse including cocaine and benzodiazepines Polyneuropathy of critical illness Agitation Improved neuro exam. Was following commands, oriented to person place and time before sedation for intubation and trach 03/20/17 Wean propofol and fentanyl as tolerated Patient is followed by Dr. Rogel neurology. EEG's reveal moderate encephalopathy no epileptiform activity. MRI negative for acute findings Previously on Seroquel 25 mg at night DCd and Haldol when necessary- discontinued 03/15/17 Librium DCd 03/15/17 Seizure precautions ?Seizures 03/10-EEG negative for seizures. Continue thiamine 100 mg daily Will hold all sedative medications, continue supportive care when patient's agitated. 03/23- cognitive evaluation by Dr. Sheriff -no decision-making capacity 03/24 Ativan discontinued, Seroquel 25 mg daily Respiratory: Acute hypoxemic respiratory failure secondary to aspiration Recurrent left lower lobe collapse/mucus plugging Complete opacification of left lung field due to mucus plugging 03/18/17 s/p tracheostomy 03/20/17 Status post extubation after therapeutic bronchoscopy 03/18/17 and reintubated for left lower lobe collapse on 03/20/17 s/p Tracheostomy 03/21/17. Difficult bronchoscopy with therapeutic scope and multiple attempts to remove very thick mucus plugs from left main bronchus. Continue breathing treatments Mucomyst for now. Chest percussion with speciality bed Patient wants to continue full code and also consented for tracheostomy if he gets reintubated. Witnessed by RNs Aniket and Dixie on 03/20/17 IV Solumedrol 60 q12 03/17/17, 03/24 begin weaning process to 40 mg every 12. Was on Symbicort and Spiriva CT thorax from 03/09 revealed collapse left upper/lingula lobes with significant secretions left main bronchus. s/p bronch Improved aeration 03/10 Continue attempts at T piece trials, aggressive pulmonary toileting 03/27 reinitiated Mucomyst 2 days 03/28 Bronchoscopy Cardiovascular: Hypertension Fluid overload Amlodipine 10 mg daily, clonidine 0.1 mg 3 times a day and metoprolol 5 mg by mouth twice a day for hypertension, with holding parameters Use when necessary labetalol and hydralazine when patient is nothing by mouth Maintain MAP > 65 mmHG Bumex as below Renal: Acute kidney injury secondary to ATN Nephrology following Dr. Martinez. Accurate I's and O's, Monitor urine output. Continue Hall catheter due to worsening renal failure Start scheduled Bumex 2 mg now and 1 mg every 12 hrs- 03/20/17 No signs of hydronephrosis on renal imaging, Urine eosinophils negative FEN/GI: Mild protein calorie malnutrition Hyperkalemia-resolved Hep C Continue tube feeds, hold off PEG tube as patient may be able to take PO diet once off vent Lansoprazole for GI prophylaxis Docusate sodium senna 1 tablet twice a day for bowel regimen. Diarrhea-repeat C. difficile antigen Free water 250cc every 8 hours Follow-up BMP Heme/ID: Macro Anemia Thrombocytopenia Probable Pneumonia F/U BAL 03/15-neg to date On previous cultures in BAL have been negative except 02/23 coag negative staph which is contamination Cefepime discontinued 03/19/17, DCd Flagyl and azithromycin 03/09/17-03/15/1703/26 C Diff negative Endocrine: Sliding-scale insulin to maintain euglycemia/low regimen with NovoLog every 6 hours Prophylaxis: GI Prophylaxis Lansoprazole DVT Prophylaxis SCDs/heparin subcutaneous Lines: Peripheral IVs providing adequate access at this time. Palliative care team following to assist with deciding goals of therapy Overall impression: Acute respiratory deterioration from recurrent mucus plugging and hypoxemic respiratory failure. Intubated and trached 03/20/17. No progress weaning from ventilator. Prognosis very poor for weaning from ventilator. Now DNR status. Edward Hernandez MD Mar 31, 2017 08:50
[2017-03-31] MEDS: TIOTROPIUM BROMIDE 18 MCG INH INH SCH (09:00)
[2017-03-31] MEDS: BENEPROTEIN POWDER 1 PACK G-TUBE SCH ×3 (09:00→18:00)
[2017-03-31] MEDS: SODIUM CHLORIDE 0.9% FLUSH 10 ML FLUSH IV FLUSH SCH ×2 (09:00→22:01)
[2017-03-31] MEDS: BUDESONIDE-FORMOTEROL 160/4.5 MCG INHALER INH SCH ×2 (09:00→22:01)
--- NOTE | 2017-03-31 09:09 | HHI.FPPN ---
Subjective Remarks 03/30: DNR status now per patient's prior directives. Continued issues with lung collapse. 03/31: Minor irritation below trach site with break in skin. Wound care consulted. Patient on CPAP. Per nurse report, patient has been asking to eat and drink. Patient's friend, Beverly, at bedside. Patient whispers that he wants to drink something. Explained that patient cannot eat or drink until ST swallow evaluation. (Anderson Matt MD R2) Objective Vitals Vital Signs Date Time Temp Pulse Resp B/P (MAP) Pulse Ox O2 Delivery O2 Flow Rate FiO2 03/31/17 06:00 100 03/31/17 04:54 96 40 03/31/17 04:00 95 03/31/17 04:00 40 03/31/17 04:00 98.1 94 16 102/70 (81) 94 03/31/17 02:00 92 03/31/17 00:52 92 40 03/31/17 00:29 93 40 03/31/17 00:00 90 03/31/17 00:00 40 03/31/17 00:00 89 25 102/67 (79) 92 03/30/17 22:00 86 03/30/17 20:00 97.8 90 23 110/81 (91) 95 03/30/17 20:00 90 03/30/17 20:00 40 03/30/17 19:36 96 40 03/30/17 19:00 95 Trach Collar 40 03/30/17 16:12 96 40 03/30/17 16:00 106 03/30/17 16:00 40 03/30/17 16:00 98.7 106 22 130/85 (100) 97 03/30/17 14:00 113 03/30/17 12:00 100 03/30/17 12:00 40 03/30/17 12:00 96 T-piece 6.00 40 03/30/17 12:00 99.9 100 26 116/81 (93) 95 03/30/17 10:00 102 I/O 03/30/17 03/30/17 03/30/17 03/31/17 03/31/17 03/31/17 06:59 14:59 22:59 06:59 14:59 22:59 Intake Total 500 ml 625 ml 1175 ml Output Total 575 ml 225 ml Balance 500 ml 50 ml 950 ml Tube Feeding 375 ml 675 ml Other 500 ml 250 ml 500 ml Output Urine Total 575 ml 225 ml # Voids 4 3 4 # Bowel Movements 1 2 1 (Anderson Matt MD R2) Result Diagram: 03/27/17 0532 03/30/17 0400 Objective Remarks GENERAL: Patient is awake and alert. Eyes following people in room. Patient is lying in bed, on CPAP, less irritated than yesterday patient still leaning to his left. SKIN: Multiple well-healing scabs on right arm. HEENT: On trach to CPAP. Pupils grossly symmetrical and reactive. CARDIOVASCULAR: RRR without appreciable murmurs. grossly normal perfusion. No edema RESPIRATORY: normal rate; decreased breath sounds on left, but otherwise coarse breath sounds, moving air well without wheezing GASTROINTESTINAL: +Hyperactive BS, Abdomen soft, non-distended, non-tender GENITOURINARY: catheter draining yellow urine MUSCULOSKELETAL: no cyanosis, no edema. No calf tenderness. NEURO: Patient is awake and alert, tracking people with eyes, whispering desire to drink something. Procedures * 03/20/17 -Bronchoscopy & Tracheostomy placement * 03/20/17 -Reintubation * 03/19/17 -Extubated * 03/18/17 -Bronchoscopy * 03/15/17 -bronchoscopy * 03/12/17 -reintubated * 03/12/17 -medical extubated * 03/09/17 -endotracheal Intubation * 03/09/17 -Bronchoscopy (Anderson Matt MD R2) Date of Insertion: Feb 23, 2017 (Anderson Matt MD R2) A/P Assessment and Plan 57-year-old white male with past medical history of alcohol withdrawal presented to the ED with severe hypoglycemia and altered mental status; patient has had progressively worsening renal function and is currently being followed for renal failure and continued altered mental status. Pt recently required intubation and sedation for respiratory distress and imaging with opacification of the left lung concerning for left lung collapse in the context of mucus plugging, which was removed on 03/09 and again on 03/18, 03/20, 03/28. Patient has been reintubated multiple times. Tracheostomy on 03/20. Patient still seems to wax and wane. Most recently, patient has been deteriorating over the past couple days but seems to be doing better today. 03/30: DNR status now per patient's prior directives. Continued issues with lung collapse. 03/31: Minor irritation below trach site with break in skin. Wound care consulted. Discharge Planning Working on plan of care with case reviewer and palliative care oncology social worker. Psychiatry was consulted and determined that patient does not have decision- making capacity. Healthcare proxy (sister): Decision for DNR. (Anderson Matt MD R2) Problem List: (1) Altered mental status ICD Codes: R41.82 - Altered mental status, unspecified Status: Acute Plan: Status post bronchoscopy on 03/28; patient visibly irritated. -Seroquel 25 mg BID for agitation; wean sedation as tolerated, but still must treat agitation -IV solumedrol q12h -CPT -Continue treatment of chronic alcoholism -Continue PO multivitamin -PO thiamine -Occupational therapy recommended OT at rehabilitation (PT recommended OT). -PT, OT, ST -Continue tube feeds at 55ml/hr and 1L of free water per dietary; Seizure precautions Impression: AMS initially suspected secondary to alcoholism or polysubstance abuse; persistent. could be anoxic brain injury from hypoglycemia (2) Respiratory disease ICD Codes: J98.9 - Respiratory disorder, unspecified Status: Acute Plan: 03/27: Episode of hypoxemic respiratory failure, needed bronchoscopy to remove mucous plugs - Cont Pulmonary toileting with suction - ventilator dependent Patient re-intubated on 03/20/17. Impression: Encephalopathic with likely [employer] damage from polysubstance abuse and/ or anoxic brain injury from hypoglycemia. Thus, patient may be unable to protect airway. Patient with repeated mucous plugging and lung collapses on imaging. Thick secretions likely due to undiagnosed COPD. (3) SAQIB (acute kidney injury) ICD Codes: N17.9 - Acute kidney failure, unspecified Status: Chronic Plan: -Nephrology consulted: Diagnosed with Acute renal failure acute tubular necrosis with drug use, Non oliguric, creatinine is stable. -Monitor BMP -Bumex 1mg IV q12h (4) Hypertension ICD Codes: I10 - Essential (primary) hypertension Status: Chronic Plan: -Hold Amlodipine 10mg PO daily -Hold Hydralazine 25 mg q12h since hypotension -Hydralazine 20 mg IV push every hour when necessary for blood pressure over 160 /90 -Labetalol 20 mg IV push every 4 hours when necessary for systolic blood pressure over 160 -Metoprolol 25 mg q12h -Clonidine 0.1 mg q6h PRN For SBP >/= 170, DBP >/= 100 -Maintain MAP > 65 mmHG -Bumex as above Impression: BPs stable (5) Skin breakdown ICD Codes: L90.9 - Atrophic disorder of skin, unspecified Plan: inferior to site of trach. - wound care c/s appreciated (6) FEN Status: Acute Plan: Fluids: through NGT Electrolytes: Monitor and replace per protocol Nutrition: Tube feeds with free water, We cannot do swallow study to evaluate for PO until 7 days post-trach (03/27), but now will wait because of patient's recent deterioration GI PPx: Lansoprazole 30 mg NG/day VTE prophylaxis: Heparin 5000 units every 12 hours and SCDs (Anderson Matt MD R2) Problem Qualifiers (1) Altered mental status: Qualified Codes: R41.0 - Disorientation, unspecified (2) Hypertension: Qualified Codes: I10 - Essential (primary) hypertension Anderson Matt MD R2 Mar 31, 2017 09:08 Aris Martinez MD Mar 31, 2017 12:59
[2017-03-31] MEDS: BUMETANIDE INJ 1 MG/4 ML VIAL IV PUSH SCH (09:30)
[2017-03-31] MEDS: methylPREDNISolone SOD SUCC 125 MG/2 ML VIAL IV PUSH SCH ×2 (09:31→22:01)
[2017-03-31] MEDS: THIAMINE HCL 100 MG TAB PO SCH (09:31)
[2017-03-31] MEDS: MULTIVITAMIN TAB PO SCH (09:31)
[2017-03-31] MEDS: METOPROLOL TARTRATE 25 MG TAB PO SCH ×2 (09:32→22:02)
[2017-03-31] MEDS: LANSOPRAZOLE SOLUTAB 30 MG TAB NG SCH (09:32)
[2017-03-31] MEDS: QUEtiapine FUMARATE 25 MG TAB PO SCH ×2 (09:33→22:02)
[2017-03-31] MEDS: HEPARIN SODIUM - SQ 10,000 UNITS/ML VIAL SQ SCH ×2 (12:08→22:02)
--- NOTE | 2017-03-31 13:10 | HHI.NPPN ---
Subjective History of Present Illness 57-year-old male with the alcohol withdrawal, altered mental status, acute renal failure Additional Remarks Patient is s/p trach, no signs of distress, responding to verbal commands. Objective Data Data Vital Signs Date Time Temp Pulse Resp B/P (MAP) Pulse Ox O2 Delivery O2 Flow Rate FiO2 03/31/17 12:45 95 40 03/31/17 12:00 92 03/31/17 12:00 98.8 92 22 117/67 (84) 93 03/31/17 12:00 40 03/31/17 10:00 100 03/31/17 09:22 91 40 03/31/17 09:22 40 03/31/17 08:00 98.3 94 16 107/74 (85) 93 03/31/17 08:00 94 03/31/17 08:00 40 03/31/17 07:00 91 Trach Collar 45 03/31/17 06:00 100 03/31/17 04:54 96 40 03/31/17 04:00 95 03/31/17 04:00 40 03/31/17 04:00 98.1 94 16 102/70 (81) 94 03/31/17 02:00 92 03/31/17 00:52 92 40 03/31/17 00:29 93 40 03/31/17 00:00 90 03/31/17 00:00 40 03/31/17 00:00 89 25 102/67 (79) 92 03/30/17 22:00 86 03/30/17 20:00 97.8 90 23 110/81 (91) 95 03/30/17 20:00 90 03/30/17 20:00 40 03/30/17 19:36 96 40 03/30/17 19:00 95 Trach Collar 40 03/30/17 16:12 96 40 03/30/17 16:00 106 03/30/17 16:00 40 03/30/17 16:00 98.7 106 22 130/85 (100) 97 03/30/17 14:00 113 -: 03/27/17 0532 03/30/17 0400 Physical Exam General Appearance: No Acute Distress, Comfortable, Malnourished Eyes Eye Exam: Pupils Equal Throat Throat Exam: Oral Mucosa Manvel & Moist Neck Neck Exam: Neck Supple Pulmonary Resp Exam: Crackles, Rhonchi, Decreased Bases, Diminished Breath Sounds Cardiology CV Exam: Regular, Normal Sinus Rhythm Gastrointestinal/Abdomen GI Exam: Soft, Non-Tender, Bowel Sounds Present Extremeties Extremities Exam: Trace Edema Neurologic Neuro Exam: Awake Psychiatric Psych Exam: Appropriate Responses Assessment/Plan Problem List: (1) SAQIB (acute kidney injury) ICD Codes: N17.9 - Acute kidney failure, unspecified Status: Chronic Plan: Acute renal failure acute tubular necrosis with drug use S/P trach./vent unable to wean Creatinine slightly improved and now it is 1.5. Urine out put is good, on low dose Bumex Hepatitis C positive Ammonia not high s/p bronchoscopy with removal of mucous plug self extubated, multiple re intubations, now has Trach CT scan abdominal reviewed Subtle high density stranding medial/upper right kidney. Abnormal mass arising from/abutting spleen LUQ measuring up to 7.5 cm with small amount of calcification. FIDEL is positive 1:80, low titre. ANCA negative Continue Bumex and follow the urine out put and BMP. (2) Alcohol withdrawal ICD Codes: F10.239 - Alcohol dependence with withdrawal, unspecified Status: Chronic Plan: Patient remained in altered mental status (3) Hypertension ICD Codes: I10 - Essential (primary) hypertension Status: Chronic Plan: Patient's blood pressure was labile continue to monitor Problem Qualifiers (1) Alcohol withdrawal: Qualified Codes: F10.231 - Alcohol dependence with withdrawal delirium (2) Hypertension: Qualified Codes: I10 - Essential (primary) hypertension Gilbert Quan MD Mar 31, 2017 13:10
[2017-04-01] VITALS (17 sets, daily range): BP systolic 96–134; BP diastolic 60–91; PULSE 80–107; RESP 17–27; TEMP 98–100.1; O2SAT 91–100
[2017-04-01] MEDS: FREE WATER G-TUBE SCH ×3 (06:00→22:00)
[2017-04-01] MEDS: ARTIFICIAL TEARS OPTH SOLN 15 ML BTL EACH EYE SCH ×3 (06:00→22:00)
[2017-04-01] MEDS: RESP: ALBUTEROL 2.5 MG/3 ML NEB (PRN) NEB (07:39)
[2017-04-01] MEDS: CHLORHEXIDINE 0.12% (ORAL KIT) 15 ML CUP MT SCH ×4 (08:00→20:00)
[2017-04-01] MEDS: BENEPROTEIN POWDER 1 PACK G-TUBE SCH ×3 (09:00→17:06)
[2017-04-01] MEDS: SODIUM CHLORIDE 0.9% FLUSH 10 ML FLUSH IV FLUSH SCH ×2 (09:00→20:52)
[2017-04-01] MEDS: TIOTROPIUM BROMIDE 18 MCG INH INH SCH (09:00)
[2017-04-01] MEDS: BUDESONIDE-FORMOTEROL 160/4.5 MCG INHALER INH SCH ×2 (09:00→21:00)
[2017-04-01] MEDS: methylPREDNISolone SOD SUCC 125 MG/2 ML VIAL IV PUSH SCH ×2 (09:38→20:52)
[2017-04-01] MEDS: BUMETANIDE INJ 1 MG/4 ML VIAL IV PUSH SCH (09:39)
[2017-04-01] MEDS: THIAMINE HCL 100 MG TAB PO SCH (09:40)
[2017-04-01] MEDS: MULTIVITAMIN TAB PO SCH (09:40)
[2017-04-01] MEDS: QUEtiapine FUMARATE 25 MG TAB PO SCH ×2 (09:40→20:52)
[2017-04-01] MEDS: METOPROLOL TARTRATE 25 MG TAB PO SCH ×2 (09:40→20:52)
[2017-04-01] MEDS: HEPARIN SODIUM - SQ 10,000 UNITS/ML VIAL SQ SCH ×2 (09:40→22:42)
[2017-04-01] MEDS: LANSOPRAZOLE SOLUTAB 30 MG TAB NG SCH (09:40)
--- NOTE | 2017-04-01 11:35 | HHI.CCPN ---
Subjective Remarks/Hospital Course This is a 57-year-old male that was found down and admitted to this hospital 02/23/2017. Urine tox screen revealed patient was positive for benzodiazepines and cocaine at that time. Since admission the patient has been on a [facility] protocol, neurology has been consulted Dr. Wayne, with continued supportive care. Over the last 48 hours the patient was noted to have elevation in his creatinine with a significant decrease in urine output acute renal failure nephrology was consulted the patient continues on gentle diuresis and received 80 mg of Lasix IV this afternoon and is currently on sodium bicarbonate infusion at 110 cc/an hour. Due to the patient's respiratory insufficiency, and altered mental status concern for possible continued respiratory decompensation the patient was transferred to the ICU, and critical care was consulted for management. Upon entering the patient's room the patient was noted to be lethargic having received 4 mg of Ativan in the last 4 hours, but opens eyes to sternal rub. The patient was noted to have O2 saturation of 95% on O2 via nasal cannula at 5 L with no accessory respiratory efforts. Stat ABG was ordered pending, to rule out CO2 narcosis. Since admission to ICU the patient was noted to diuresis of 700 cc. 03/03: Afebrile. The patient did not receive any Ativan since 3 PM on 03/02/17. The patient rested well overnight, eventually waking and responding. This a.m. the patient's noted to be sitting up in bed, alert and responsive. Librium has been added to medication regimen for alcohol withdrawal. Noted to be oriented to date of unable to provide name or place at this time. Essential tremors, fine tremors noted. The patient severely weak and unable to feed self without assistance. The patient's diet was advanced to regular diet, tolerating well, 100% consumption. PO meds were held since admission to ICU secondary to lethargy, all by mouth meds resumed this a.m.. The patient currently is compliant following commands, inappropriate responses, with noted incomprehensible words, language at times. Patient is noted to be very weak. Nasal cannula O2 has been weaned down to approximately 3 L, the patient appears in no respiratory distress. Subjective: 03/09: Reconsulted secondary acute respiratory failure. Chest x-ray earlier in the morning revealed collapse versus large pleural effusion left side. Patient oxygen requirements had increased from 4 L to a nonrebreather mask. CT thorax revealed likely mucous plugging/collapsed lung left side. Small to moderate left pleural effusion. Patient was combative upon arrival ICU in place in soft restraints. Due to mental status/mucous plugging patient was electively intubated using 20 mg etomidate and 50 mg, rocuronium. Patient was bronched which revealed thick white mucous plugging in the left and right mainstem. These were lavaged to left upper lobe/lingula and left lower lobe, right upper middle and lower lobes. Samples were sent see orders. Currently sedated with propofol and fentanyl drips. 03/10: Tonic seizures today when propofol stopped. Seizures ceased with propofol bolus. Left pneumonia persists but improved aeration after bronch . 03/11: Gas exchange acceptable. Continues to have tonic "seizures" when propofol is lightened. EEG 03/10 states no seizures but we will repeat EEG again today with stimulation and off propofol. Can't extubate until this "seizure" activity is resolved. Vomited tube feeds, will reduce and add reglan. 03/12: Off sedation tolerating CPAP even though intermittently apneic. Appears to follows commands but weekly on the upper extremity. No obvious seizures. EEG negative for seizure 03/11/17. Creatinine slightly improved to 2.8 from 3 03/13: Failed extubation on 03/12. Currently sedated, orally intubated on mechanical ventilation. Has thick copious respiratory secretions per CHEMISTR[employer] TECHNICAL OFFICER. 03/14: Remains sedated, orally intubated on mechanical ventilation. Feeling C Pap trials. Not following commands on lightening sedation. 03/15: Remains intubated encephalopathy. Left lower lobe infiltrate again indicating probable mucous plugging/collapse. Palliative care meeting with family today. I recommend tracheostomy and PEG tube placement. D/W palliative care team 03/16: Off sedation since yesterday 5PM. Eyes open spontaneously. Following commands bilateral upper extremity, he squeezes with both hands. Discussed with Dr. Kingston. Will continue weaning attempt with plan for wean to extubate. s/p bronchoscopy yesterday, with re expansion of L lung. Has moderate secretions. I have updated Lore Darling (sister) about improvement in neuro exam. See below 03/17: Tolerated CPAP 7 hours yesterday. Currently on CPAP. Lethargic/somnolent but follows commands, gives thumbs up on bilateral UE. Creat stable. UO 750 ml in 24 hours. BAL negative to date 03/18: Remains intubated off sedation. There is further improvement in neuro exam, able to move both feet to command, gives thumbs up on both upper extremities. Chest x-ray shows complete white out of the left lung field. We' ll plan for emergency bronchoscopy 03/19: Extubated yesterday, overnight appeared to be having mucus plugging involving L lung. But currently patient is saturating well. He somnolent but wakes up easily and nodding appropriately and following commands, in the bilateral upper extremity 03/20: Today around 5.30 AM, patient acutely became hypoxemic with diminished breath sounds on the left lung field. Placed on nonrebreather clinical exam was consistent with left lower lobe mucus plugging according to Dr. Chadwick. With aggressive suctioning and Mucomyst and DuoNeb breathing treatments, patient 's air entry and saturation improved slightly. Currently on 100% nonrebreather oxygen saturation 90-92% tachypneic but not in severe distress. I discussed tracheostomy with the patient, witnessed by RN Aniket and Dixie. I explained to him that If he gets reintubated he will need tracheostomy due to frequent mucus plugging, with left lung collapse. Patient understands tracheostomy procedure, and wants tracheostomy done in case of reintubation. 03/21: Re intubated yesterday for LLL collapse. Tracheostomy performed yesterday afternoon. Difficult bronchoscopy with therapeutic bronchoscope and multiple attempts to remove the mucus plugging because of the very thick tenacious nature of the plugs. Continue breathing treatments Mucomyst for now. Chest percussion with speciality bed. 03/22: The patient tolerated trach collar trials approximately 1 hour yesterday. The patient continues to have thick secretions, aggressive pulmonary toileting continues with chest percussion. Today the patient indicated that he wanted to be placed back on DNR status. Discussion with family medicine primary service team for cognitive evaluation by psychiatry to assess competency in making this decision. Will continue care as planned, overweight recommendations from psychiatry and palliative medicine. Will hold medication for agitation until assessment is performed, and continue supportive care. 03/23: Acute events overnight. Patient tolerated T piece trials for approximately 5 hours yesterday. Psychiatry consulted seen today. The patient was deemed not competent, full report pending. 03/24: Patient became agitated during the night received 2 doses of Ativan which were ineffective Seroquel added to medication regimen low dose. The patient successfully underwent T piece trials for 6.5 hours yesterday as well as CPAP for 3 hours. Psychiatry was consulted and the patient was deemed not to have any decision-making capacity and sister continues to be the healthcare surrogate for the patient. Yesterday a female individual into the room and stated that she was the patient's palliative care was re-consulted as well as case management to follow-up if the individual is the patient's next of kin. The patient's sister states she was unaware that the patient was . 03/25: Patient noted to be less agitated today Seroquel was initiated yesterday. Patient tolerated T piece trials for approximately 4 hours yesterday. Creatinine improving today. 03/26: No acute events overnight. the patient has been maintained on TPiece trials for 12 hours. 03/27: This a.m. the patient was noted to be in hypoxemic respiratory failure, O2 sat precipitously dropped into the 70s. Aggressive pulmonary toileting with suctioning thick tenacious mucus was obtained, stat chest x-ray, 100% FiO2 with clearing. Mucomyst 2 days ordered .Plan bronchoscopy if no improvement. 03/28: Unable to wean ventilator. 03/29: Severely agitated intermittently. Ventilator dependent. 03/30: DNR status now per patient's prior directives. Continued issues with lung collapse. 03/31: Minor irritation below trach site with break in skin. 04/01: Interacts but unclear what he understands. He is hungry. Objective Vital Signs Date Time Temp Pulse Resp B/P (MAP) Pulse Ox O2 Delivery O2 Flow Rate FiO2 04/01/17 10:00 94 04/01/17 08:00 80 04/01/17 08:00 98.4 25 131/60 (83) 91 04/01/17 07:00 Trach Collar 03/30/17 12:00 6.00 Intake and Output 04/01/17 04/01/17 04/02/17 08:00 16:00 00:00 Intake Total 692 ml Output Total 475 ml Balance 217 ml Result Diagram: 03/30/17 0400 Imaging Last Impressions Chest X-Ray 03/28/17 0600 Signed Impressions: Service Date/Time: Tuesday, March 28, 2017 03:58 - CONCLUSION: No significant change. Kilo Rowell MD Abdomen X-Ray 03/13/17 0000 Signed Impressions: Service Date/Time: Monday, March 13, 2017 13:04 - CONCLUSION: 1. The tip of the NG tube is just through the GE junction and into the stomach. Cliff Mack MD Brain MRI 03/10/17 0000 Signed Impressions: Service Date/Time: Friday, March 10, 2017 15:01 - CONCLUSION: No acute infarct or other acute intracranial abnormality. Atrophy and chronic white matter changes are again noted. Kilo Rowell MD Chest CT 03/09/17 0000 Signed Impressions: Service Date/Time: Thursday, March 09, 2017 04:59 - CONCLUSION: 1. Marked volume loss in the left hemithorax with near-complete collapse of the left lower lobe/lingula. There is still some aeration in the left upper lung. Some of this is due to the moderate sized left-sided effusion although there may be element of airway obstruction/mucus plugging as well. 2. Small right-sided effusion with become atelectatic changes in the right base. 3. Patchy biapical airspace disease.. Tone Henry MD Shoulder X-Ray 03/05/17 0000 Signed Impressions: Service Date/Time: Sunday, March 05, 2017 20:57 - CONCLUSION: No acute disease. Rick Sanford MD Abdomen/Pelvis CT 03/04/17 0000 Signed Impressions: Service Date/Time: Saturday, March 04, 2017 10:31 - CONCLUSION: 1. There is no hydronephrosis or renal abnormality to explain the renal failure. However, there is subtle high density stranding along the medial and upper pole of the right kidney. Suggest followup CT to assess for change. 2. Abnormal mass arising from or abutting the spleen in the left upper quadrant measuring up to 7.5 cm. It contains a small amount of calcification. Suggest correlating with any prior imaging study that could offer additional characterization. If none are available suggest followup imaging to confirm stability and consider contrast enhanced CT or MRI for further characterization when patient condition permits. 3. Small bilateral pleural effusions, left larger than right, with associated compressive atelectasis. 4. Severe coronary artery calcification. Kilo Coulter MD Renal Ultrasound 02/27/17 0000 Signed Impressions: Service Date/Time: Monday, February 27, 2017 20:36 - CONCLUSION: 1. Mildly dilated left renal collecting system. Kidneys normal in size. Trace free fluid. Ruy Hussein MD Head CT 02/23/17 0000 Signed Impressions: Service Date/Time: Thursday, February 23, 2017 07:38 - CONCLUSION: No significant change has occurred. Maximus Pavon MD Last Impressions Shoulder X-Ray 03/05/17 0000 Signed Impressions: Service Date/Time: Sunday, March 05, 2017 20:57 - CONCLUSION: No acute disease. Rick Sanford MD Abdomen/Pelvis CT 03/04/17 0000 Signed Impressions: Service Date/Time: Saturday, March 04, 2017 10:31 - CONCLUSION: 1. There is no hydronephrosis or renal abnormality to explain the renal failure. However, there is subtle high density stranding along the medial and upper pole of the right kidney. Suggest followup CT to assess for change. 2. Abnormal mass arising from or abutting the spleen in the left upper quadrant measuring up to 7.5 cm. It contains a small amount of calcification. Suggest correlating with any prior imaging study that could offer additional characterization. If none are available suggest followup imaging to confirm stability and consider contrast enhanced CT or MRI for further characterization when patient condition permits. 3. Small bilateral pleural effusions, left larger than right, with associated compressive atelectasis. 4. Severe coronary artery calcification. Kilo Coulter MD Chest X-Ray 03/02/17 Signed Impressions: Service Date/Time: Thursday, March 02, 2017 08:18 - CONCLUSION: Increasing consolidative changes left base. Nasir Mack MD FACR Renal Ultrasound 02/27/17 0000 Signed Impressions: Service Date/Time: Monday, February 27, 2017 20:36 - CONCLUSION: 1. Mildly dilated left renal collecting system. Kidneys normal in size. Trace free fluid. Ruy Hussein MD Brain MRI 02/25/17 0000 Signed Impressions: Service Date/Time: Saturday, February 25, 2017 12:37 - CONCLUSION: Atrophy, periventricular changes without evidence for acute infarction. Nasir Mack MD FACR Head CT 02/23/17 0000 Signed Impressions: Service Date/Time: Thursday, February 23, 2017 07:38 - CONCLUSION: No significant change has occurred. Maximus Pavon MD Objective Remarks GENERAL: 57-year-old male, intermittently agitated. SKIN: Warm and dry. HEAD: Atraumatic. Normocephalic. EYES: Pupils equal, 2 mm bilaterally and reactive. ENT: No nasal bleeding or discharge. NECK: Trachea midline. Trach site with pressure wound at lower half. White secretions. CARDIOVASCULAR: RRR, tachycardic. S1, S2 no S4. Without murmur. No JVD. RESPIRATORY: Diminished breath sounds left lung thomas. Bilateral rhonchi. GASTROINTESTINAL: Abdomen soft, non-tender, nondistended. Active bowel sounds. No guarding. MUSCULOSKELETAL: Extremities without without significant peripheral edema. Well perfused. NEUROLOGICAL: Follows commands bilateral upper and lower extremities. Moves extremities x 4 spontaneously. Agitated. Procedures 03/28: Bronchoscopy Date of Insertion: Feb 23, 2017 A/P Assessment and Plan Neuro/Psych: Encephalopathy/Delirium most likely metabolic Admission with EtOH withdrawal - likely completed Polysubstance abuse including cocaine and benzodiazepines Polyneuropathy of critical illness Agitation Improved neuro exam. Was following commands, oriented to person place and time before sedation for intubation and trach 03/20/17 Wean propofol and fentanyl as tolerated Patient is followed by Dr. Rogel neurology. EEG's reveal moderate encephalopathy no epileptiform activity. MRI negative for acute findings Previously on Seroquel 25 mg at night DCd and Haldol when necessary- discontinued 03/15/17 Librium DCd 03/15/17 Seizure precautions ?Seizures 03/10-EEG negative for seizures. Continue thiamine 100 mg daily Will hold all sedative medications, continue supportive care when patient's agitated. 03/23- cognitive evaluation by Dr. Sheriff -no decision-making capacity 03/24 Ativan discontinued, Seroquel 25 mg daily Respiratory: Acute hypoxemic respiratory failure secondary to aspiration Recurrent left lower lobe collapse/mucus plugging Complete opacification of left lung field due to mucus plugging 03/18/17 s/p tracheostomy 03/20/17 Status post extubation after therapeutic bronchoscopy 03/18/17 and reintubated for left lower lobe collapse on 03/20/17 s/p Tracheostomy 03/21/17. Difficult bronchoscopy with therapeutic scope and multiple attempts to remove very thick mucus plugs from left main bronchus. Continue breathing treatments Mucomyst for now. Chest percussion with speciality bed Patient wants to continue full code and also consented for tracheostomy if he gets reintubated. Witnessed by RNs Aniket and Dixie on 03/20/17 IV Solumedrol 60 q12 03/17/17, 03/24 begin weaning process to 40 mg every 12. Was on Symbicort and Spiriva CT thorax from 03/09 revealed collapse left upper/lingula lobes with significant secretions left main bronchus. s/p bronch Improved aeration 03/10 Continue attempts at T piece trials, aggressive pulmonary toileting 03/27 reinitiated Mucomyst 2 days 03/28 Bronchoscopy Cardiovascular: Hypertension Fluid overload Amlodipine 10 mg daily, clonidine 0.1 mg 3 times a day and metoprolol 5 mg by mouth twice a day for hypertension, with holding parameters Use when necessary labetalol and hydralazine when patient is nothing by mouth Maintain MAP > 65 mmHG Bumex as below Renal: Acute kidney injury secondary to ATN Nephrology following Dr. Martinez. Accurate I's and O's, Monitor urine output. Continue Hall catheter due to worsening renal failure Start scheduled Bumex 2 mg now and 1 mg every 12 hrs- 03/20/17 No signs of hydronephrosis on renal imaging, Urine eosinophils negative FEN/GI: Mild protein calorie malnutrition Hyperkalemia-resolved Hep C Continue tube feeds, hold off PEG tube as patient may be able to take PO diet once off vent Lansoprazole for GI prophylaxis Docusate sodium senna 1 tablet twice a day for bowel regimen. Diarrhea-repeat C. difficile antigen Free water 250cc every 8 hours Follow-up BMP Heme/ID: Macro Anemia Thrombocytopenia Probable Pneumonia F/U BAL 03/15-neg to date On previous cultures in BAL have been negative except 02/23 coag negative staph which is contamination Cefepime discontinued 03/19/17, DCd Flagyl and azithromycin 03/09/17-03/15/1703/26 C Diff negative Endocrine: Sliding-scale insulin to maintain euglycemia/low regimen with NovoLog every 6 hours Prophylaxis: GI Prophylaxis Lansoprazole DVT Prophylaxis SCDs/heparin subcutaneous Lines: Peripheral IVs providing adequate access at this time. Palliative care team following to assist with deciding goals of therapy Overall impression: Acute respiratory deterioration from recurrent mucus plugging and hypoxemic respiratory failure. Intubated and trached 03/20/17. No progress weaning from ventilator. Secretions persist. Prognosis very poor for weaning from ventilator. Now DNR status. Edward Hernandez MD Apr 01, 2017 11:35
--- NOTE | 2017-04-01 11:53 | HHI.NPPN ---
Subjective History of Present Illness 57-year-old male with the alcohol withdrawal, altered mental status, acute renal failure Additional Remarks Patient is s/p trach, remain alert, responding to verbal commands. Objective Data Data Vital Signs Date Time Temp Pulse Resp B/P (MAP) Pulse Ox O2 Delivery O2 Flow Rate FiO2 04/01/17 10:00 94 04/01/17 08:00 80 04/01/17 08:00 102 04/01/17 08:00 98.4 104 25 131/60 (83) 91 04/01/17 07:35 96 60 04/01/17 07:00 94 Trach Collar 80 04/01/17 06:00 90 04/01/17 04:19 96 80 04/01/17 04:00 100.1 80 18 101/69 (80) 94 04/01/17 04:00 80 04/01/17 04:00 80 04/01/17 02:00 88 04/01/17 00:00 80 04/01/17 00:00 100.1 89 17 96/67 (77) 93 04/01/17 00:00 86 03/31/17 22:00 92 03/31/17 20:45 80 03/31/17 20:23 90 40 03/31/17 20:00 102 03/31/17 20:00 40 03/31/17 20:00 99.5 89 24 135/89 (104) 89 03/31/17 19:00 89 Trach Collar 40 03/31/17 18:00 108 03/31/17 16:14 92 40 03/31/17 16:00 97 03/31/17 16:00 40 03/31/17 16:00 98.4 94 35 142/79 (100) 88 03/31/17 14:00 97 03/31/17 12:45 95 40 03/31/17 12:00 92 03/31/17 12:00 98.8 92 22 117/67 (84) 93 03/31/17 12:00 40 -: 03/30/17 0400 Physical Exam General Appearance: No Acute Distress, Comfortable, Malnourished Eyes Eye Exam: Pupils Equal Throat Throat Exam: Oral Mucosa [place] & Moist Neck Neck Exam: Neck Supple Pulmonary Resp Exam: Crackles, Rhonchi, Decreased Bases, Diminished Breath Sounds Cardiology CV Exam: Regular, Normal Sinus Rhythm Gastrointestinal/Abdomen GI Exam: Soft, Non-Tender, Bowel Sounds Present Extremeties Extremities Exam: Trace Edema Neurologic Neuro Exam: Awake Psychiatric Psych Exam: Appropriate Responses Assessment/Plan Problem List: (1) SAQIB (acute kidney injury) ICD Codes: N17.9 - Acute kidney failure, unspecified Status: Chronic Plan: Acute renal failure acute tubular necrosis with drug use S/P trach./vent unable to wean Urine out put is good, on low dose Bumex Hepatitis C positive Ammonia not high s/p bronchoscopy with removal of mucous plug self extubated, multiple re intubations, now has Trach CT scan abdominal reviewed Subtle high density stranding medial/upper right kidney. Abnormal mass arising from/abutting spleen LUQ measuring up to 7.5 cm with small amount of calcification. FIDEL is positive 1:80, low titre. ANCA negative Continue Bumex and follow the urine out put and BMP. No new BMP today. Weaning as tolerated. Dr. Martinez will follow in AM. (2) Alcohol withdrawal ICD Codes: F10.239 - Alcohol dependence with withdrawal, unspecified Status: Chronic Plan: Patient remained in altered mental status (3) Hypertension ICD Codes: I10 - Essential (primary) hypertension Status: Chronic Plan: Patient's blood pressure was labile continue to monitor Problem Qualifiers (1) Alcohol withdrawal: Qualified Codes: F10.231 - Alcohol dependence with withdrawal delirium (2) Hypertension: Qualified Codes: I10 - Essential (primary) hypertension Gilbert Quan MD Apr 01, 2017 11:53
--- NOTE | 2017-04-01 12:48 | HHI.FPPN ---
Subjective Remarks Pt seen and examined bedside. Pt continues to nod and shake head appropriately in response to very basic questions. he seems very sleepy today, not agitated. Per nursing; Pt has been tolerating CPAP but NOT t-piece. No acute events overnight. Objective Vitals Vital Signs Date Time Temp Pulse Resp B/P (MAP) Pulse Ox O2 Delivery O2 Flow Rate FiO2 04/01/17 12:04 93 60 04/01/17 12:00 97 04/01/17 12:00 98.7 100 27 113/77 (89) 98 04/01/17 12:00 60 04/01/17 10:00 94 04/01/17 08:00 80 04/01/17 08:00 102 04/01/17 08:00 98.4 104 25 131/60 (83) 91 04/01/17 07:35 96 60 04/01/17 07:00 94 Trach Collar 80 04/01/17 06:00 90 04/01/17 04:19 96 80 04/01/17 04:00 100.1 80 18 101/69 (80) 94 04/01/17 04:00 80 04/01/17 04:00 80 04/01/17 02:00 88 04/01/17 00:00 80 04/01/17 00:00 100.1 89 17 96/67 (77) 93 04/01/17 00:00 86 03/31/17 22:00 92 03/31/17 20:45 80 03/31/17 20:23 90 40 03/31/17 20:00 102 03/31/17 20:00 40 03/31/17 20:00 99.5 89 24 135/89 (104) 89 03/31/17 19:00 89 Trach Collar 40 03/31/17 18:00 108 03/31/17 16:14 92 40 03/31/17 16:00 97 03/31/17 16:00 40 03/31/17 16:00 98.4 94 35 142/79 (100) 88 03/31/17 14:00 97 03/31/17 12:45 95 40 I/O 03/31/17 03/31/17 03/31/17 04/01/17 04/01/17 04/01/17 07:00 15:00 23:00 07:00 15:00 23:00 Intake Total 1175 ml 916 ml 692 ml Output Total 225 ml 875 ml 475 ml Balance 950 ml 41 ml 217 ml Tube Feeding 675 ml 666 ml 692 ml Other 500 ml 250 ml Output Urine Total 225 ml 875 ml 475 ml # Voids 4 2 1 # Bowel Movements 1 5 1 Result Diagram: 03/30/17 0400 Objective Remarks GENERAL: Patient is more somnolent today than yesterday. Patient is lying in bed , on CPAP patient still leaning to his left. SKIN: Multiple well-healing scabs on right arm. HEENT: On trach to CPAP. Pupils grossly symmetrical and reactive. CARDIOVASCULAR: RRR without appreciable murmurs. grossly normal perfusion. No edema RESPIRATORY: normal rate; decreased breath sounds on left, but otherwise coarse breath sounds, moving air well (same as previous exams) without wheezing GASTROINTESTINAL: +Hyperactive BS, Abdomen soft, non-distended, non-tender GENITOURINARY: catheter draining yellow urine MUSCULOSKELETAL: no cyanosis, no edema. No calf tenderness. NEURO: Patient is awake and alert Procedures * 03/20/17 -Bronchoscopy & Tracheostomy placement * 03/20/17 -Reintubation * 03/19/17 -Extubated * 03/18/17 -Bronchoscopy * 03/15/17 -bronchoscopy * 03/12/17 -reintubated * 03/12/17 -medical extubated * 03/09/17 -endotracheal Intubation * 03/09/17 -Bronchoscopy Date of Insertion: Feb 23, 2017 A/P Assessment and Plan 57-year-old white male with past medical history of alcohol withdrawal presented to the ED with severe hypoglycemia and altered mental status; patient has had progressively worsening renal function and is currently being followed for renal failure and continued altered mental status. Pt recently required intubation and sedation for respiratory distress and imaging with opacification of the left lung concerning for left lung collapse in the context of mucus plugging, which was removed on 03/09 and again on 03/18, 03/20, 03/28. Patient has been reintubated multiple times. Tracheostomy on 03/20. Patient still seems to wax and wane. Most recently, patient has been deteriorating over the past couple days but seems to be doing better today. 03/30: DNR status now per patient's prior directives. Continued issues with lung collapse. 03/31: Minor irritation below trach site with break in skin. Wound care consulted. Discharge Planning Working on plan of care with ed case manager and palliative care social welfare research worker. Psychiatry was consulted and determined that patient does not have decision- making capacity. Healthcare proxy (sister): Decision for DNR. Problem List: (1) Altered mental status ICD Codes: R41.82 - Altered mental status, unspecified Status: Acute Plan: hx of hypoxic episodes on trach with multiple bronchoscopies, little improvement overall, very poor prognosis - pt now tolerating CPAP, not T-Piece -Seroquel 25 mg BID for agitation; wean sedation as tolerated, but still must treat agitation -IV solumedrol q12h -CPT - f/u with Case Management: possible vent facility that accepts Medicaid? -Continue treatment of chronic alcoholism -Continue PO multivitamin -PO thiamine -Occupational therapy recommended OT at rehabilitation (PT recommended OT). -PT, OT, ST -Continue tube feeds at 55ml/hr and 1L of free water per dietary; Seizure precautions Impression: AMS initially suspected secondary to alcoholism or polysubstance abuse; persistent. could be anoxic brain injury from hypoglycemia (2) Respiratory disease ICD Codes: J98.9 - Respiratory disorder, unspecified Status: Acute Plan: 03/27: Episode of hypoxemic respiratory failure, needed bronchoscopy to remove mucous plugs - Cont Pulmonary toileting with suction - See situation above Patient re-intubated on 03/20/17. 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 Thus, patient may be unable to protect airway. Patient with repeated mucous plugging and lung collapses on imaging. Thick secretions likely due to undiagnosed COPD. (3) SAQIB (acute kidney injury) ICD Codes: N17.9 - Acute kidney failure, unspecified Status: Chronic Plan: -Nephrology following: Diagnosed with Acute renal failure acute tubular necrosis with drug use stable creatinine and output - f/u urine output -Bumex 1mg IV q12h (low dose) Hx CT scan abdominal reviewed Subtle high density stranding medial/upper right kidney. Abnormal mass arising from/abutting spleen LUQ measuring up to 7.5 cm with small amount of calcification. Hepatitis C positive Ammonia not high FIDEL is positive 1:80, low titre. ANCA negative (4) Hypertension ICD Codes: I10 - Essential (primary) hypertension Status: Chronic Plan: -Hold Amlodipine 10mg PO daily -Hold Hydralazine 25 mg q12h since hypotension -Hydralazine 20 mg IV push every hour when necessary for blood pressure over 160 /90 -Labetalol 20 mg IV push every 4 hours when necessary for systolic blood pressure over 160 -Metoprolol 25 mg q12h -Clonidine 0.1 mg q6h PRN For SBP >/= 170, DBP >/= 100 -Maintain MAP > 65 mmHG -Bumex as above Impression: BPs stable (5) Skin breakdown ICD Codes: L90.9 - Atrophic disorder of skin, unspecified Status: Resolved Plan: inferior to site of trach. - wound care c/s appreciated (6) FEN Status: Acute Plan: Fluids: through NGT Electrolytes: Monitor and replace per protocol Nutrition: Tube feeds with free water, We cannot do swallow study to evaluate for PO until 7 days post-trach (03/27), but now will wait because of patient's recent deterioration GI PPx: Lansoprazole 30 mg NG/day VTE prophylaxis: Heparin 5000 units every 12 hours and SCDs Problem Qualifiers (1) Altered mental status: Qualified Codes: R41.0 - Disorientation, unspecified (2) Hypertension: Qualified Codes: I10 - Essential (primary) hypertension Bonnie Pan MD R2 Apr 01, 2017 12:48
[2017-04-02] VITALS (18 sets, daily range): BP systolic 102–136; BP diastolic 69–85; PULSE 78–102; RESP 16–19; TEMP 96.8–98.3; O2SAT 93–100
[2017-04-02] MEDS: ARTIFICIAL TEARS OPTH SOLN 15 ML BTL EACH EYE SCH ×3 (05:28→21:21)
[2017-04-02] MEDS: FREE WATER G-TUBE SCH ×3 (05:28→21:21)
[2017-04-02] MEDS: LANSOPRAZOLE SOLUTAB 30 MG TAB NG SCH (08:47)
[2017-04-02] MEDS: BUMETANIDE INJ 1 MG/4 ML VIAL IV PUSH SCH (08:47)
[2017-04-02] MEDS: methylPREDNISolone SOD SUCC 125 MG/2 ML VIAL IV PUSH SCH ×2 (08:56→21:20)
[2017-04-02] MEDS: MULTIVITAMIN TAB PO SCH (08:56)
[2017-04-02] MEDS: METOPROLOL TARTRATE 25 MG TAB PO SCH ×2 (08:57→21:20)
[2017-04-02] MEDS: THIAMINE HCL 100 MG TAB PO SCH (08:57)
[2017-04-02] MEDS: QUEtiapine FUMARATE 25 MG TAB PO SCH ×2 (08:57→21:21)
[2017-04-02] MEDS: SODIUM CHLORIDE 0.9% FLUSH 10 ML FLUSH IV FLUSH SCH ×2 (08:58→21:00)
[2017-04-02] MEDS: BENEPROTEIN POWDER 1 PACK G-TUBE SCH ×3 (08:58→18:41)
[2017-04-02] MEDS: TIOTROPIUM BROMIDE 18 MCG INH INH SCH (09:00)
[2017-04-02] MEDS: BUDESONIDE-FORMOTEROL 160/4.5 MCG INHALER INH SCH ×2 (09:00→21:00)
--- NOTE | 2017-04-02 09:41 | HHI.FPPN ---
Subjective Remarks Per nurse report, they've already had to suction out Mr. Cuevas's trach 4 times this morning. Mr. Cuevas is still requesting to eat and drink. However, staff still doesn't feel that he is ready. He is still on the ventilator and not tolerating trials without it. Objective Vitals Vital Signs Date Time Temp Pulse Resp B/P (MAP) Pulse Ox O2 Delivery O2 Flow Rate FiO2 04/02/17 06:00 80 04/02/17 04:29 98 90 04/02/17 04:00 100 04/02/17 04:00 98.3 82 16 106/73 (84) 96 04/02/17 04:00 82 04/02/17 02:00 96 04/02/17 00:00 91 04/02/17 00:00 100 04/02/17 00:00 98.0 91 16 102/69 (80) 100 04/01/17 23:10 94 100 04/01/17 23:10 100 04/01/17 22:00 94 04/01/17 20:00 98.0 101 24 121/81 (94) 93 04/01/17 20:00 101 04/01/17 20:00 60 04/01/17 19:00 91 Trach Collar 60 04/01/17 18:00 105 04/01/17 16:14 100 60 04/01/17 16:00 60 04/01/17 16:00 107 04/01/17 16:00 99.1 107 27 134/91 (105) 100 04/01/17 14:00 88 04/01/17 12:04 93 60 04/01/17 12:00 97 04/01/17 12:00 98.7 100 27 113/77 (89) 98 04/01/17 12:00 60 04/01/17 10:00 94 I/O 04/01/17 04/01/17 04/01/17 04/02/17 04/02/17 04/02/17 07:00 15:00 23:00 07:00 15:00 23:00 Intake Total 692 ml 1337 ml 1188 ml Output Total 475 ml 700 ml 800 ml Balance 217 ml 637 ml 388 ml Tube Feeding 692 ml 987 ml 708 ml Other 350 ml 480 ml Output Urine Total 475 ml 700 ml 800 ml # Voids 1 # Bowel Movements 1 2 1 Result Diagram: 03/30/17 0400 Imaging Last Impressions Chest X-Ray 03/29/17 0600 Signed Impressions: Service Date/Time: March 05:08 - CONCLUSION: 1. Worsening consolidation and effusion at the left lung base. 2. Nasogastric tube is coiled back on itself, tip in the lower esophagus. Kilo Rowell MD Abdomen X-Ray 03/13/17 0000 Signed Impressions: Service Date/Time: Monday, March 13, 2017 13:04 - CONCLUSION: 1. The tip of the NG tube is just through the GE junction and into the stomach. Cliff Mack MD Brain MRI 03/10/17 0000 Signed Impressions: Service Date/Time: Friday, March 10, 2017 15:01 - CONCLUSION: No acute infarct or other acute intracranial abnormality. Atrophy and chronic white matter changes are again noted. Kilo Rowell MD Chest CT 03/09/17 0000 Signed Impressions: Service Date/Time: Thursday, March 09, 2017 04:59 - CONCLUSION: 1. Marked volume loss in the left hemithorax with near-complete collapse of the left lower lobe/lingula. There is still some aeration in the left upper lung. Some of this is due to the moderate sized left-sided effusion although there may be element of airway obstruction/mucus plugging as well. 2. Small right-sided effusion with become atelectatic changes in the right base. 3. Patchy biapical airspace disease.. Tone Henry MD Shoulder X-Ray 03/05/17 0000 Signed Impressions: Service Date/Time: Sunday, March 05, 2017 20:57 - CONCLUSION: No acute disease. Rick Sanford MD Abdomen/Pelvis CT 03/04/17 0000 Signed Impressions: Service Date/Time: Saturday, March 04, 2017 10:31 - CONCLUSION: 1. There is no hydronephrosis or renal abnormality to explain the renal failure. However, there is subtle high density stranding along the medial and upper pole of the right kidney. Suggest followup CT to assess for change. 2. Abnormal mass arising from or abutting the spleen in the left upper quadrant measuring up to 7.5 cm. It contains a small amount of calcification. Suggest correlating with any prior imaging study that could offer additional characterization. If none are available suggest followup imaging to confirm stability and consider contrast enhanced CT or MRI for further characterization when patient condition permits. 3. Small bilateral pleural effusions, left larger than right, with associated compressive atelectasis. 4. Severe coronary artery calcification. Kilo Coulter MD Renal Ultrasound 02/27/17 0000 Signed Impressions: Service Date/Time: Monday, February 27, 2017 20:36 - CONCLUSION: 1. Mildly dilated left renal collecting system. Kidneys normal in size. Trace free fluid. Ruy Hussein MD Head CT 02/23/17 0000 Signed Impressions: Service Date/Time: Thursday, February 23, 2017 07:38 - CONCLUSION: No significant change has occurred. Maximus Pavon MD Objective Remarks GENERAL: Patient is more awake and alert today than yesterday. Patient is lying in bed, on vent patient still leaning to his left. Patient seems to have frequent coughing fits. SKIN: Multiple well-healing scabs on right arm. HEENT: On trach to vent. Pupils grossly symmetrical and reactive. CARDIOVASCULAR: RRR without appreciable murmurs. grossly normal perfusion. No edema RESPIRATORY: normal rate; equal breath sounds (s/p suctioning, improvement from previous exam), moving air well without wheezing GASTROINTESTINAL: +Hyperactive BS, Abdomen soft, non-distended, non-tender GENITOURINARY: catheter draining yellow urine MUSCULOSKELETAL: no cyanosis, no edema. No calf tenderness. NEURO: Patient is awake and alert, tracking with his eyes, and trying to communicate by mouthing words Procedures * 03/20/17 -Bronchoscopy & Tracheostomy placement * 03/20/17 -Reintubation * 03/19/17 -Extubated * 03/18/17 -Bronchoscopy * 03/15/17 -bronchoscopy * 03/12/17 -reintubated * 03/12/17 -medical extubated * 03/09/17 -endotracheal Intubation * 03/09/17 -Bronchoscopy Date of Insertion: Feb 23, 2017 A/P Assessment and Plan 57-year-old white male with past medical history of alcohol withdrawal presented to the ED with severe hypoglycemia and altered mental status; patient has had progressively worsening renal function and is currently being followed for renal failure and continued altered mental status. Pt recently required intubation and sedation for respiratory distress and imaging with opacification of the left lung concerning for left lung collapse in the context of mucus plugging, which was removed on 03/09 and again on 03/18, 03/20, 03/28. Patient has been reintubated multiple times. Tracheostomy on 03/20. Patient still seems to wax and wane. 03/30: DNR status now per patient's prior directives. Continued issues with lung collapse. Discharge Planning Working on plan of care with cyanide case hardener and palliative care transition social worker. Psychiatry was consulted and determined that patient does not have decision- making capacity. Healthcare proxy (sister): Decision for DNR. Problem List: (1) Altered mental status ICD Codes: R41.82 - Altered mental status, unspecified Status: Acute Plan: hx of hypoxic episodes on trach with multiple bronchoscopies, little improvement overall, poor prognosis - pt now on vent; not tolerating CPAP or T-Piece -Seroquel 25 mg BID for agitation; wean sedation as tolerated, but still must treat agitation -IV solumedrol q12h -CPT - f/u with Case Management: possible vent facility that accepts Medicaid? -Continue treatment of chronic alcoholism -Continue PO multivitamin -PO thiamine -Occupational therapy recommended OT at rehabilitation (PT recommended OT). -PT, OT, ST -Continue tube feeds at 55ml/hr and 1L of free water per dietary; Seizure precautions Impression: AMS initially suspected secondary to alcoholism or polysubstance abuse; persistent. could be anoxic brain injury from hypoglycemia (2) Respiratory disease ICD Codes: J98.9 - Respiratory disorder, unspecified Status: Acute Plan: 03/27: Episode of hypoxemic respiratory failure, needed bronchoscopy to remove mucous plugs - Cont Pulmonary toileting with suction - See A/P above Patient re-intubated on 03/20/17. 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 Thus, patient may be unable to protect airway. Patient with repeated mucous plugging and lung collapses on imaging. Thick secretions likely due to undiagnosed COPD. (3) SAQIB (acute kidney injury) ICD Codes: N17.9 - Acute kidney failure, unspecified Status: Chronic Plan: -Nephrology following: Diagnosed with Acute renal failure acute tubular necrosis with drug use stable creatinine and output - f/u urine output -Bumex 1mg IV q12h (low dose) Hx CT scan abdominal reviewed Subtle high density stranding medial/upper right kidney. Abnormal mass arising from/abutting spleen LUQ measuring up to 7.5 cm with small amount of calcification. Hepatitis C positive Ammonia not high FIDEL is positive 1:80, low titre. ANCA negative (4) Hypertension ICD Codes: I10 - Essential (primary) hypertension Status: Chronic Plan: -Hold Amlodipine 10mg PO daily -Hold Hydralazine 25 mg q12h since hypotension -Hydralazine 20 mg IV push every hour when necessary for blood pressure over 160 /90 -Labetalol 20 mg IV push every 4 hours when necessary for systolic blood pressure over 160 -Metoprolol 25 mg q12h -Clonidine 0.1 mg q6h PRN For SBP >/= 170, DBP >/= 100 -Maintain MAP > 65 mmHG -Bumex as above Impression: BPs stable (5) Skin breakdown ICD Codes: L90.9 - Atrophic disorder of skin, unspecified Status: Resolved Plan: inferior to site of trach. - wound care c/s appreciated (6) FEN Status: Acute Plan: Fluids: through NGT Electrolytes: Monitor and replace per protocol Nutrition: Tube feeds with free water, We cannot do swallow study to evaluate for PO because of patient's recent deterioration GI PPx: Lansoprazole 30 mg NG/day VTE prophylaxis: Heparin 5000 units every 12 hours and SCDs Problem Qualifiers (1) Altered mental status: Qualified Codes: R41.0 - Disorientation, unspecified (2) Hypertension: Qualified Codes: I10 - Essential (primary) hypertension Anderson Matt MD R2 Apr 02, 2017 09:41
[2017-04-02] MEDS: HEPARIN SODIUM - SQ 10,000 UNITS/ML VIAL SQ SCH ×2 (11:49→22:01)
--- NOTE | 2017-04-02 14:40 | HHI.NPPN ---
Subjective History of Present Illness 57-year-old male with the alcohol withdrawal, altered mental status, acute renal failure Additional Remarks Patient is s/p trach, remain alert, responding to verbal commands. Objective Data Data Vital Signs Date Time Temp Pulse Resp B/P (MAP) Pulse Ox O2 Delivery O2 Flow Rate FiO2 04/02/17 10:52 95 80 04/02/17 10:00 78 04/02/17 08:00 98.0 100 16 136/85 (102) 98 04/02/17 08:00 100 04/02/17 08:00 100 04/02/17 07:00 99 Trach Collar 60 04/02/17 06:00 80 04/02/17 04:29 98 90 04/02/17 04:00 100 04/02/17 04:00 98.3 82 16 106/73 (84) 96 04/02/17 04:00 82 04/02/17 02:00 96 04/02/17 00:00 91 04/02/17 00:00 100 04/02/17 00:00 98.0 91 16 102/69 (80) 100 04/01/17 23:10 94 100 04/01/17 23:10 100 04/01/17 22:00 94 04/01/17 20:00 98.0 101 24 121/81 (94) 93 04/01/17 20:00 101 04/01/17 20:00 60 04/01/17 19:00 91 Trach Collar 60 04/01/17 18:00 105 04/01/17 16:14 100 60 04/01/17 16:00 60 04/01/17 16:00 107 04/01/17 16:00 99.1 107 27 134/91 (105) 100 -: 03/30/17 0400 Physical Exam General Appearance: No Acute Distress, Comfortable, Malnourished Eyes Eye Exam: Pupils Equal Throat Throat Exam: Oral Mucosa [place] & Moist Neck Neck Exam: Neck Supple Pulmonary Resp Exam: Crackles, Rhonchi, Decreased Bases, Diminished Breath Sounds Cardiology CV Exam: Regular, Normal Sinus Rhythm Gastrointestinal/Abdomen GI Exam: Soft, Non-Tender, Bowel Sounds Present Musculoskeletal MS Remarks left shoulder sub laxation ? dislocated Extremeties Extremities Exam: Trace Edema Neurologic Neuro Exam: Awake Psychiatric Psych Exam: Appropriate Responses Assessment/Plan Problem List: (1) SAQIB (acute kidney injury) ICD Codes: N17.9 - Acute kidney failure, unspecified Status: Chronic Plan: Acute renal failure acute tubular necrosis with drug use S/P trach./vent unable to wean Urine out put is good, on low dose Bumex Hepatitis C positive Ammonia not high s/p bronchoscopy with removal of mucous plug self extubated, multiple re intubations, now has Trach CT scan abdominal reviewed Subtle high density stranding medial/upper right kidney. Abnormal mass arising from/abutting spleen LUQ measuring up to 7.5 cm with small amount of calcification. FIDEL is positive 1:80, low titre. ANCA negative Continue Bumex and follow the urine out put and BMP. Cr 1.5 on 03/30 remains stable I will follow on PRN bases (2) Alcohol withdrawal ICD Codes: F10.239 - Alcohol dependence with withdrawal, unspecified Status: Chronic Plan: Patient remained in altered mental status (3) Hypertension ICD Codes: I10 - Essential (primary) hypertension Status: Chronic Plan: Patient's blood pressure was labile continue to monitor Problem Qualifiers (1) Alcohol withdrawal: Qualified Codes: F10.231 - Alcohol dependence with withdrawal delirium (2) Hypertension: Qualified Codes: I10 - Essential (primary) hypertension Daryl Martinez MD Apr 02, 2017 14:40
[2017-04-02] MEDS ORDERED: ROCURONIUM INJ 50 MG/5 ML VIAL IV ONE (15:45)
[2017-04-02] MEDS ORDERED: MIDAZOLAM HCL 2 MG/2 ML VIAL IV PUSH ONE (15:45)
[2017-04-02] MEDS ORDERED: MIDAZOLAM HCL 5 MG/ML VIAL (1 ML) ONE ×2 (15:46→15:59)
--- NOTE | 2017-04-02 16:14 | PD.PROCEDR ---
Procedure Note Procedure DATE: 04/02/17 Fiberoptic bronchoscopy/therapeutic INDICATION: Mucous plugging CONSENT Informed consent for procedure was obtained. DESCRIPTION OF THE PROCEDURE The patient was placed in supine position. FiO2 on before meals the ventilator settings 100%. Patient was sedated with 8 mg Versed and paralyzed with rocuronium 50 mg. I entered ET tube with bronchoscopy. The jared was sharp. Left lower lobe revealed extremely friable mucosa. Left lower lobe with large mucous plug that's suction to clear with 40 cc sterile saline. No signs of mass or obstruction process. The bronchoscopy was drawn to the jared and the right upper, superior, middle and lower lobes were evaluated to second subsegment. Extremity lax airway. Was noted. Scope was withdrawn without complication. ESTIMATED BLOOD LOSS: Minimal COMPLICATIONS: No apparent complications. STAT chest x-ray pending at time of dictation Barrington Vazquez MD Apr 02, 2017 16:14
--- NOTE | 2017-04-02 16:17 | RADRPT ---
EXAM DATE/TIME: 04/02/2017 15:21 [facility] COMPARISON: CHEST SINGLE AP, March 29, 2017, 5:08. INDICATIONS : Difficulty breathing. MEDICAL HISTORY : Hepatitis C. Myocardial infarction. Arthritis. Seizures SURGICAL HISTORY : None. ENCOUNTER: Subsequent ACUITY: 1 week PAIN SCORE: Non-responsive. LOCATION: Bilateral chest FINDINGS: The heart is enlarged. There is a left-sided effusion. There is consolidative change in the left lowe r lobe. There is shift of the mediastinum from right to left. The right lung is clear. There is a andrey ogastric tube coiled within a large hiatal hernia. The appearance of the parenchyma is unchanged from previous. The visualized bony structures are grossly intact. CONCLUSION: 1. Continued left basilar consolidation and left-sided infiltrate. 2. The NG tube has been repositioned. It is now coiled within the patient's hiatal hernia and stomach . 3. Tracheostomy in satisfactory position. Cliff Mack MD on April 02, 2017 at 16:15 Board Certified Radiologist. This report was verified electronically.
[2017-04-02] MEDS: CHLORHEXIDINE 0.12% (ORAL KIT) 15 ML CUP MT SCH ×4 (17:05→20:00)
--- NOTE | 2017-04-02 17:20 | RADRPT ---
EXAM DATE/TIME: 04/02/2017 16:40 [facility] COMPARISON: CHEST SINGLE AP, April 02, 2017, 15:21. INDICATIONS : Post bronchoscopy. MEDICAL HISTORY : Hepatitis C. Myocardial infarction. Arthritis. Seizures SURGICAL HISTORY : None. ENCOUNTER: Initial ACUITY: 1 week PAIN SCORE: Non-responsive. LOCATION: Bilateral chest FINDINGS: PEG tube in good position. His gastric ulcer GE junction. Moderate parenchymal changes left base, i mproved following bronchoscopy. There is no pneumothorax. CONCLUSION: Interval improvement left base following bronchoscopy.. No pneumothorax Nasir Mack MD FACR on April 02, 2017 at 17:17 Board Certified Radiologist. This report was verified electronically.
--- NOTE | 2017-04-02 17:56 | HHI.HCPN ---
Reason for visit a. To assist with evaluation and management of symptoms including: Shortness of breath, debility, confusion b. To assist medical decision maker(s) with: better understanding of current medical conditions; weighing benefits/burdens of medical treatment options; making medical treatment decisions. Subjective/Interval History Mr. Cuevas is a 57 year old male with a medical history significant for EtOH use and abuse, tobacco use and abuse and depression. Patient was brought to [facility] ED on 02/23/17 via [place] the 40s. Patient was admitted for management of altered mental status associated with withdrawal delirium tremens and cellulitis to right upper extremity. Clinical course complicated by acute kidney failure, persistent altered mental status and respiratory failure requiring intubation and mechanical ventilation. Palliative care consulted for further clarifications of goals of care. Interval history: 03/23/[address] Sheriff consulted for decision capacity evaluation, patient currently deemed not capacitated to make any medical decisions at this time. Patient is requiring recurrent bronchoscopies for mucus plugging and collapse of the left lung. This was discussed with the sister who states she wants absolutely no new interventions and wants the patient transitioned to withdrawal of vent support with hospice care. This was discussed with Dr. Vazquez who agrees that the patient is not responding to treatment and will likely require recurrent bronchoscopies with no likelihood of good recovery. Consents were signed and forwarded to the patient's sister, Lore Darling, who is the healthcare surrogate for review. Plan for possible withdrawal 04/03. . . Family/friend interactions Discuss patient's care and prognosis with the sister Lore Darling who has requested hospice care and compassionate withdrawal of the vent for her brothers comfort. Advance Directives Living Will: Copy in medical record Health Care Surrogate: Copy in medical record Durable Power of Director Transition: Never completed Advance Directive Specifics Date completed: 03/20/2017 . Health Care Surrogate(s): Sister-Lore Darling . Objective Vital Signs Date Time Temp Pulse Resp B/P (MAP) Pulse Ox O2 Delivery O2 Flow Rate FiO2 04/02/17 17:13 99 80 04/02/17 16:00 99 100 04/02/17 16:00 100 04/02/17 16:00 97.0 92 16 111/84 (93) 98 04/02/17 16:00 92 04/02/17 15:04 100 04/02/17 15:04 97.0 80 19 119/79 (92) 93 04/02/17 14:00 96.8 92 16 111/84 (93) 98 04/02/17 14:00 100 04/02/17 14:00 100 04/02/17 12:00 80 04/02/17 10:52 95 80 04/02/17 10:00 78 04/02/17 08:00 98.0 100 16 136/85 (102) 98 04/02/17 08:00 100 04/02/17 08:00 100 04/02/17 07:00 99 Trach Collar 60 04/02/17 06:00 80 04/02/17 04:29 98 90 04/02/17 04:00 100 04/02/17 04:00 98.3 82 16 106/73 (84) 96 04/02/17 04:00 82 04/02/17 02:00 96 04/02/17 00:00 91 04/02/17 00:00 100 04/02/17 00:00 98.0 91 16 102/69 (80) 100 04/01/17 23:10 94 100 04/01/17 23:10 100 04/01/17 22:00 94 04/01/17 20:00 98.0 101 24 121/81 (94) 93 04/01/17 20:00 101 04/01/17 20:00 60 04/01/17 19:00 91 Trach Collar 60 04/01/17 18:00 105 Intake & Output 04/02/17 04/02/17 06:59 18:59 Intake Total 1188 ml Output Total 800 ml Balance 388 ml Tube Feeding 708 ml Other 480 ml Output Urine Total 800 ml # Bowel Movements 1 Physical Exam CONSTITUTIONAL/GENERAL: This is an ill looking male who looks older than stated age, trached on Tpiece status post bronchoscopy. TUBES/LINES/DRAINS: PIVs, , SCDs. NGT to right nare SKIN: Rash/ecchymosis to RUE. Scattered ecchymoses on upper extremities. Open areas/scabs to right upper extremity. Scattered scabs on face. Skin temperature appropriate. HEAD: Atraumatic. Normocephalic. EYES: Pupils equal and round and reactive. No scleral icterus. No injection or drainage. NECK: Trachea midline. Supple, nontender. CARDIOVASCULAR: Regular rhythm, controlled rate, S1, S2, no murmur. RESPIRATORY/CHEST: Symmetric, unlabored respirations. Lungs diminished with scattered rhonchi. GASTROINTESTINAL: Abdomen soft, non-tender, nondistended. Bowel sounds present. GENITOURINARY: Without palpable bladder distension. Condom catheter. MUSCULOSKELETAL: Extremities without clubbing, cyanosis. 1+ dependent edema. NEUROLOGICAL: Awake, awakening from sedation status post bronchoscopy. PSYCHIATRIC: Mildly sedated. . Diagnostic Tests Laboratory Date/Time Source Procedure Growth Status 03/02/17 10:56 Blood Peripheral Aerobic Blood Culture - Final NO GROWTH IN 5 DAYS Complete 03/02/17 10:56 Blood Peripheral Anaerobic Blood Culture - Final NO GROWTH IN 5 DAYS Complete 03/02/17 11:50 Stool Stool Stool Occult Blood (LILLY) - Final HEMOCCULT NEGATIVE Complete 03/15/17 15:40 Bronchial Brushings Left Lower Lobe Fungal Smear - Final NO FUNGAL ELEMENTS SEEN. Resulted 03/15/17 15:40 Bronchial Brushings Left Lower Lobe Fungal Culture - Preliminary NO GROWTH IN 2 WEEKS Resulted 03/09/17 18:50 Urine Catheterized Urine Streptococcus pneumoniae Antigen (M - Final PRESUMPTIVE NEGATIVE FOR STREPTOCOCCU... Complete Result Diagram: 03/30/17 0400 Microbiology Current Medications Medications (Trade) Dose Ordered Sig/Veronika Route Start Time Stop Time Status Last Admin (NS Flush) 2 ml UNSCH PRN IV FLUSH 02/23/17 10:00 (NS Flush) 2 ml BID IV FLUSH 02/23/17 21:00 04/02/17 08:58 (Catapres) 0.1 mg Q6H PRN PO 02/23/17 10:00 03/24/17 00:03 (Heparin Inj) 5,000 units Q12H SQ 02/23/17 11:00 04/02/17 11:49 (D50w (Vial) Inj) 50 ml UNSCH PRN IV 02/23/17 10:15 (Glucagon Inj) 1 mg UNSCH PRN OTHER 02/23/17 10:15 (Romazicon Inj) 0.2 mg Q1M PRN IV PUSH 03/02/17 22:45 (Theragran) 1 tab DAILY PO 03/04/17 09:00 04/02/17 08:56 (Chloraseptic [place]) 2 spray Q2H PRN OROPHARYNG 03/06/17 10:00 (Apresoline) 10 mg QID PRN PO 03/06/17 21:00 Future hold 03/07/17 04:22 (Norvasc) 10 mg DAILY PO 03/09/17 09:00 Future Hold 03/18/17 07:41 (Vitamin B1) 100 mg DAILY PO 03/08/17 09:15 04/02/17 08:57 (Apresoline) 25 mg Q12HR PO 03/08/17 21:00 Future Hold 03/09/17 09:57 (Peridex 0.12% Liq) 15 ml BID@08,20 MT 03/09/17 08:00 04/02/17 17:05 (Albuterol Neb) 2.5 mg Q2HR NEB PRN NEB 03/09/17 06:15 04/01/17 07:39 (Prevacid Odt) 30 mg DAILY NG 03/09/17 09:00 04/02/17 08:47 (Tears Naturale Opth Soln) 1 drop Q8HR EACH EYE 03/09/17 14:00 04/02/17 05:28 (Nitroglycerin 2% Oint) 2 inch Q6HR PRN TOPICAL 03/09/17 07:00 (Beneprotein Powder) 1 pack TID G-TUBE 03/10/17 13:00 04/02/17 08:58 (Tylenol) 500 mg Q6H PRN PO 03/16/17 15:30 03/17/17 21:59 (Levsin) 0.125 mg Q6H PRN PO 03/16/17 18:15 03/30/17 01:10 (Ativan Inj) 1 mg Q15M PRN IV PUSH 03/18/17 20:00 Future Hold 03/19/17 03:12 (Lopressor) 25 mg Q12HR PO 03/20/17 09:00 04/02/17 08:57 (Apresoline Inj) 20 mg Q1HR PRN IV PUSH 03/20/17 07:30 03/23/17 00:06 (Symbicort 160-4.5 Inh) 2 puff Q12HR INH 03/20/17 09:00 03/31/17 22:01 (Spiriva Inh) 18 mcg DAILY INH 03/20/17 09:00 03/27/17 09:50 (Trandate Inj) 20 mg Q4H PRN IV PUSH 03/20/17 07:45 03/28/17 18:39 (Peridex 0.12% Liq) 15 ml BID@08,20 MT 03/20/17 20:00 04/02/17 17:05 (Senna Liq) 8.8 mg DAILY PRN PO 03/21/17 10:00 03/22/17 09:14 (Colace Liq) 100 mg Q12HR PRN PO 03/21/17 10:00 03/22/17 09:13 (Lactulose Liq) 30 ml QID PRN PO 03/21/17 10:00 (SoluMEDROL INJ) 40 mg Q12HR IV PUSH 03/24/17 21:00 04/02/17 08:56 (Free Water) 250 ml Q8HR G-TUBE 03/25/17 14:00 04/02/17 17:08 (Bumex Inj) 1 mg DAILY IV PUSH 03/28/17 09:00 04/02/17 08:47 (SEROquel) 25 mg BID PO 03/29/17 21:00 04/02/17 08:57 Imaging Last Impressions Chest X-Ray 04/02/17 0000 Signed Impressions: Service Date/Time: Sunday, April 02, 2017 16:40 - CONCLUSION: Interval improvement left base following bronchoscopy.. No pneumothorax Nasir Mack MD FACR Abdomen X-Ray 03/13/17 0000 Signed Impressions: Service Date/Time: Monday, March 13, 2017 13:04 - CONCLUSION: 1. The tip of the NG tube is just through the GE junction and into the stomach. Cliff Mack MD Brain MRI 03/10/17 0000 Signed Impressions: Service Date/Time: Friday, March 10, 2017 15:01 - CONCLUSION: No acute infarct or other acute intracranial abnormality. Atrophy and chronic white matter changes are again noted. Kilo Rowell MD Chest CT 03/09/17 0000 Signed Impressions: Service Date/Time: Thursday, March 09, 2017 04:59 - CONCLUSION: 1. Marked volume loss in the left hemithorax with near-complete collapse of the left lower lobe/lingula. There is still some aeration in the left upper lung. Some of this is due to the moderate sized left-sided effusion although there may be element of airway obstruction/mucus plugging as well. 2. Small right-sided effusion with become atelectatic changes in the right base. 3. Patchy biapical airspace disease.. Tone Henry MD Shoulder X-Ray 03/05/17 0000 Signed Impressions: Service Date/Time: Sunday, March 05, 2017 20:57 - CONCLUSION: No acute disease. Rick Sanford MD Abdomen/Pelvis CT 03/04/17 0000 Signed Impressions: Service Date/Time: Saturday, March 04, 2017 10:31 - CONCLUSION: 1. There is no hydronephrosis or renal abnormality to explain the renal failure. However, there is subtle high density stranding along the medial and upper pole of the right kidney. Suggest followup CT to assess for change. 2. Abnormal mass arising from or abutting the spleen in the left upper quadrant measuring up to 7.5 cm. It contains a small amount of calcification. Suggest correlating with any prior imaging study that could offer additional characterization. If none are available suggest followup imaging to confirm stability and consider contrast enhanced CT or MRI for further characterization when patient condition permits. 3. Small bilateral pleural effusions, left larger than right, with associated compressive atelectasis. 4. Severe coronary artery calcification. Kilo Coluter MD Renal Ultrasound 02/27/17 0000 Signed Impressions: Service Date/Time: Monday, February 27, 2017 20:36 - CONCLUSION: 1. Mildly dilated left renal collecting system. Kidneys normal in size. Trace free fluid. Ruy Hussein MD Head CT 02/23/17 0000 Signed Impressions: Service Date/Time: Thursday, February 23, 2017 07:38 - CONCLUSION: No significant change has occurred. Maximus Pavon MD Procedures * * 03/27/17 - * 03/20/17 -Bronchoscopy & Tracheostomy placement * 03/20/17-Reintubation * 03/19/17 -Extubated * 03/18/17 -Bronchoscopy * 03/15/17 -bronchoscopy * 03/12/17 -reintubated * 03/12/17 -medical extubated * 03/09/17 -endotracheal Intubation * 03/09/17 -Bronchoscopy . Assessment and Plan Disease Oriented Problem List: (1) Acute hypoxemic respiratory failure (2) Acute kidney injury (3) PNA (pneumonia) (4) Encephalopathy (5) Cellulitis (6) Protein-calorie malnutrition (7) Physical deconditioning Symptom Scale: (1) Shortness of breath 0-10 Scale: Unable to quantify Comment: Now trached on T Rogers, FIO2 40% .. (2) Anxiety 0-10 Scale: Unable to quantify (3) Debility 0-10 Scale: Unable to quantify Comment: Progressive given acute events and prolonged hospitalization. Pertinent Non-Medical Issues Psychosocial: Patient is homeless. Chronic alcohol abuse and polysubstance abuse. On an admission in April, patient stated that he grew up in [place], [place], highest level of education is high school. Patient has as per records. Patient's mother and father . Patient also reported that he had been incarcerated at least 50 times. Reported by his friend, Beverly, to have been a in the [employer]. This is under investigation to verify the information. Spiritual: Unknown. Legal: unknown if advance directives have been completed. Ethical issues impacting care: Important Contacts Lore Darling (sister): [phone] Salima Whyte (presented as patient`s ) . Prognosis Mr. Cuevas is a 57 years old male with a medical history significant for EtOH use and abuse, tobacco use and abuse and depression. Patient was brought to [facility] ED on 02/23/17 via [place] the 40s. Patient was admitted for management of altered mental status associated with withdrawal delirium tremens and cellulitis to right upper extremity. Clinical course complicated by persistent encephalopathy, acute kidney injury and respiratory failure required intubation , tracheostomy and mechanical ventilation. Patient's overall prognosis is poor given the above. . Code Status: Full Code Plan PLAN: Legal decision maker: Patient trached and deemed incapacitated to make his own medical decisions by Psychiatry. Patient`s sister Lore Darling is now his [place] care surrogate and will assist with medical decision while patient is incapacitated. Goals: Transition to comfort, consult hospice, plan for compassionate withdrawal of ventilator. CODE STATUS: DNR SYMPTOMS: * Dyspnea - patient trached 03/20/17 and remains on mechanical ventilation. O2 Sat adequate in the 90s. He has undergone 6 bronchoscopies with recurrent persistent mucus plugging and collapse of the left lung. Last bronchoscopy done today. Plan for compassionate withdrawal once exhibits are signed. * Debility - he is extremely weak and fatigued. He has been wheelchair bound since 2001 but had previously been able to ambulate with one assist and a cane. For the last year and a half he has been wheelchair bound and will require intensive therapy to recover any function. * Confusion - currently he is unable to speak due to tracheostomy, however, can nod his head. At this evaluation he is not in his head yes to all questions. There is concern that he may not be able to process what is being said to him. His sister is his healthcare surrogate and believes he would not wish to exist in this condition and undergo ventilation, restraints and recurrent invasive procedures. She is undergoing discussion with hospice and per my discussion with her today will likely withdraw ventilatory support under compassionate care. Palliative care will continue to follow the patient during hospital course as condition evolves, to assist patient/decision-maker with understanding of their medical conditions, weighing benefits/burdens of treatment options, for clarification of goals of treatment. Additionally will assist with any symptoms of palliative concern . Attestation To help prompt me to consider important information that might be impacting today's encounter and assessment, information from prior notes written by myself or my colleagues may have been "brought forward" into today's note. My signature on this note, however, is an attestation that I personally performed the exam, history, and/or decision-making noted today, and, unless otherwise indicated, the interactions with patient, family, and staff as well as the review of records all occurred today. I also attest that the listed assessment and stated plan reflect my best clinical judgment today based on the combination of historical information, prior notes, and today's exam/ interactions. When time spent is documented, it refers only to time spent today by the signer, or if indicated, combined time spent today by collaborating physician/nurse practitioner. Shannan Armas Apr 02, 2017 5:56 pm
[2017-04-02] MEDS: HYOSCYAMINE 0.125 MG TAB PO PRN (18:51)
--- NOTE | 2017-04-02 21:16 | HHI.CCPN ---
Subjective Remarks/Hospital Course This is a 57-year-old male that was found down and admitted to this hospital 02/23/2017. Urine tox screen revealed patient was positive for benzodiazepines and cocaine at that time. Since admission the patient has been on a [facility] protocol, neurology has been consulted Dr. Wayne, with continued supportive care. Over the last 48 hours the patient was noted to have elevation in his creatinine with a significant decrease in urine output acute renal failure nephrology was consulted the patient continues on gentle diuresis and received 80 mg of Lasix IV this afternoon and is currently on sodium bicarbonate infusion at 110 cc/an hour. Due to the patient's respiratory insufficiency, and altered mental status concern for possible continued respiratory decompensation the patient was transferred to the ICU, and critical care was consulted for management. Upon entering the patient's room the patient was noted to be lethargic having received 4 mg of Ativan in the last 4 hours, but opens eyes to sternal rub. The patient was noted to have O2 saturation of 95% on O2 via nasal cannula at 5 L with no accessory respiratory efforts. Stat ABG was ordered pending, to rule out CO2 narcosis. Since admission to ICU the patient was noted to diuresis of 700 cc. 03/03: Afebrile. The patient did not receive any Ativan since 3 PM on 03/02/17. The patient rested well overnight, eventually waking and responding. This a.m. the patient's noted to be sitting up in bed, alert and responsive. Librium has been added to medication regimen for alcohol withdrawal. Noted to be oriented to date of unable to provide name or place at this time. Essential tremors, fine tremors noted. The patient severely weak and unable to feed self without assistance. The patient's diet was advanced to regular diet, tolerating well, 100% consumption. PO meds were held since admission to ICU secondary to lethargy, all by mouth meds resumed this a.m.. The patient currently is compliant following commands, inappropriate responses, with noted incomprehensible words, language at times. Patient is noted to be very weak. Nasal cannula O2 has been weaned down to approximately 3 L, the patient appears in no respiratory distress. 03/09: Reconsulted secondary acute respiratory failure. Chest x-ray earlier in the morning revealed collapse versus large pleural effusion left side. Patient oxygen requirements had increased from 4 L to a nonrebreather mask. CT thorax revealed likely mucous plugging/collapsed lung left side. Small to moderate left pleural effusion. Patient was combative upon arrival ICU in place in soft restraints. Due to mental status/mucous plugging patient was electively intubated using 20 mg etomidate and 50 mg, rocuronium. Patient was bronched which revealed thick white mucous plugging in the left and right mainstem. These were lavaged to left upper lobe/lingula and left lower lobe, right upper middle and lower lobes. Samples were sent see orders. Currently sedated with propofol and fentanyl drips. 03/10: Tonic seizures today when propofol stopped. Seizures ceased with propofol bolus. Left pneumonia persists but improved aeration after bronch . 03/11: Gas exchange acceptable. Continues to have tonic "seizures" when propofol is lightened. EEG 03/10 states no seizures but we will repeat EEG again today with stimulation and off propofol. Can't extubate until this "seizure" activity is resolved. Vomited tube feeds, will reduce and add reglan. 03/12: Off sedation tolerating CPAP even though intermittently apneic. Appears to follows commands but weekly on the upper extremity. No obvious seizures. EEG negative for seizure 03/11/17. Creatinine slightly improved to 2.8 from 3 03/13: Failed extubation on 03/12. Currently sedated, orally intubated on mechanical ventilation. Has thick copious respiratory secretions per WATCH COMMANDER. 03/14: Remains sedated, orally intubated on mechanical ventilation. Feeling C Pap trials. Not following commands on lightening sedation. 03/15: Remains intubated encephalopathy. Left lower lobe infiltrate again indicating probable mucous plugging/collapse. Palliative care meeting with family today. I recommend tracheostomy and PEG tube placement. D/W palliative care team 03/16: Off sedation since yesterday 5PM. Eyes open spontaneously. Following commands bilateral upper extremity, he squeezes with both hands. Discussed with Dr. Kingston. Will continue weaning attempt with plan for wean to extubate. s/p bronchoscopy yesterday, with re expansion of L lung. Has moderate secretions. I have updated Lore Darling (sister) about improvement in neuro exam. See below 03/17: Tolerated CPAP 7 hours yesterday. Currently on CPAP. Lethargic/somnolent but follows commands, gives thumbs up on bilateral UE. Creat stable. UO 750 ml in 24 hours. BAL negative to date 03/18: Remains intubated off sedation. There is further improvement in neuro exam, able to move both feet to command, gives thumbs up on both upper extremities. Chest x-ray shows complete white out of the left lung field. We' ll plan for emergency bronchoscopy 03/19: Extubated yesterday, overnight appeared to be having mucus plugging involving L lung. But currently patient is saturating well. He somnolent but wakes up easily and nodding appropriately and following commands, in the bilateral upper extremity 03/20: Today around 5.30 AM, patient acutely became hypoxemic with diminished breath sounds on the left lung field. Placed on nonrebreather clinical exam was consistent with left lower lobe mucus plugging according to Dr. Chadwick. With aggressive suctioning and Mucomyst and DuoNeb breathing treatments, patient 's air entry and saturation improved slightly. Currently on 100% nonrebreather oxygen saturation 90-92% tachypneic but not in severe distress. I discussed tracheostomy with the patient, witnessed by WHITNEY Marcial and Dixie. I explained to him that If he gets reintubated he will need tracheostomy due to frequent mucus plugging, with left lung collapse. Patient understands tracheostomy procedure, and wants tracheostomy done in case of reintubation. 03/21: Re intubated yesterday for LLL collapse. Tracheostomy performed yesterday afternoon. Difficult bronchoscopy with therapeutic bronchoscope and multiple attempts to remove the mucus plugging because of the very thick tenacious nature of the plugs. Continue breathing treatments Mucomyst for now. Chest percussion with speciality bed. 03/22: The patient tolerated trach collar trials approximately 1 hour yesterday. The patient continues to have thick secretions, aggressive pulmonary toileting continues with chest percussion. Today the patient indicated that he wanted to be placed back on DNR status. Discussion with family medicine primary service team for cognitive evaluation by psychiatry to assess competency in making this decision. Will continue care as planned, overweight recommendations from psychiatry and palliative medicine. Will hold medication for agitation until assessment is performed, and continue supportive care. 03/23: Acute events overnight. Patient tolerated T piece trials for approximately 5 hours yesterday. Psychiatry consulted seen today. The patient was deemed not competent, full report pending. 03/24: Patient became agitated during the night received 2 doses of Ativan which were ineffective Seroquel added to medication regimen low dose. The patient successfully underwent T piece trials for 6.5 hours yesterday as well as CPAP for 3 hours. Psychiatry was consulted and the patient was deemed not to have any decision-making capacity and sister continues to be the healthcare surrogate for the patient. Yesterday a female individual into the room and stated that she was the patient's palliative care was re-consulted as well as case management to follow-up if the individual is the patient's next of kin. The patient's sister states she was unaware that the patient was . 03/25: Patient noted to be less agitated today Seroquel was initiated yesterday. Patient tolerated T piece trials for approximately 4 hours yesterday. Creatinine improving today. 03/26: No acute events overnight. the patient has been maintained on TPiece trials for 12 hours. 03/27: This a.m. the patient was noted to be in hypoxemic respiratory failure, O2 sat precipitously dropped into the 70s. Aggressive pulmonary toileting with suctioning thick tenacious mucus was obtained, stat chest x-ray, 100% FiO2 with clearing. Mucomyst 2 days ordered .Plan bronchoscopy if no improvement. 03/28: Unable to wean ventilator. 03/29: Severely agitated intermittently. Ventilator dependent. 03/30: DNR status now per patient's prior directives. Continued issues with lung collapse. 03/31: Minor irritation below trach site with break in skin. 04/01: Interacts but unclear what he understands. He is hungry. Subjective 04/02: Status post bronchoscopy today for mucus plugging. Afebrile. Off care proxy desires hospice care at the present time. Exhibits B&C signed. Objective Vital Signs Date Time Temp Pulse Resp B/P (MAP) Pulse Ox O2 Delivery O2 Flow Rate FiO2 04/02/17 19:00 99 Trach Collar 60 04/02/17 18:00 102 04/02/17 16:00 97.0 16 111/84 (93) 03/30/17 12:00 6.00 Intake and Output 04/02/17 04/02/17 04/03/17 08:00 16:00 00:00 Intake Total 1188 ml 398 ml Output Total 800 ml 600 ml Balance 388 ml -202 ml Result Diagram: 03/30/17 0400 Other Results Microbiology Date/Time Source Procedure Growth Status 03/02/17 10:56 Blood Peripheral Aerobic Blood Culture - Final NO GROWTH IN 5 DAYS Complete 03/02/17 10:56 Blood Peripheral Anaerobic Blood Culture - Final NO GROWTH IN 5 DAYS Complete 03/02/17 11:50 Stool Stool Stool Occult Blood (LILLY) - Final HEMOCCULT NEGATIVE Complete 03/15/17 15:40 Bronchial Brushings Left Lower Lobe Fungal Smear - Final NO FUNGAL ELEMENTS SEEN. Resulted 03/15/17 15:40 Bronchial Brushings Left Lower Lobe Fungal Culture - Preliminary NO GROWTH IN 2 WEEKS Resulted 03/09/17 18:50 Urine Catheterized Urine Streptococcus pneumoniae Antigen (M - Final PRESUMPTIVE NEGATIVE FOR STREPTOCOCCU... Complete Imaging Last Impressions Chest X-Ray 04/02/17 0000 Signed Impressions: Service Date/Time: Sunday, April 02, 2017 16:40 - CONCLUSION: Interval improvement left base following bronchoscopy.. No pneumothorax Nasir Mack MD FACR Abdomen X-Ray 03/13/17 0000 Signed Impressions: Service Date/Time: Monday, March 13, 2017 13:04 - CONCLUSION: 1. The tip of the NG tube is just through the GE junction and into the stomach. Cliff Mack MD Brain MRI 03/10/17 0000 Signed Impressions: Service Date/Time: Friday, March 10, 2017 15:01 - CONCLUSION: No acute infarct or other acute intracranial abnormality. Atrophy and chronic white matter changes are again noted. Kilo Rowell MD Chest CT 03/09/17 0000 Signed Impressions: Service Date/Time: Thursday, March 09, 2017 04:59 - CONCLUSION: 1. Marked volume loss in the left hemithorax with near-complete collapse of the left lower lobe/lingula. There is still some aeration in the left upper lung. Some of this is due to the moderate sized left-sided effusion although there may be element of airway obstruction/mucus plugging as well. 2. Small right-sided effusion with become atelectatic changes in the right base. 3. Patchy biapical airspace disease.. Tone Henry MD Shoulder X-Ray 03/05/17 0000 Signed Impressions: Service Date/Time: Sunday, March 05, 2017 20:57 - CONCLUSION: No acute disease. Rick Sanford MD Abdomen/Pelvis CT 03/04/17 0000 Signed Impressions: Service Date/Time: Saturday, March 04, 2017 10:31 - CONCLUSION: 1. There is no hydronephrosis or renal abnormality to explain the renal failure. However, there is subtle high density stranding along the medial and upper pole of the right kidney. Suggest followup CT to assess for change. 2. Abnormal mass arising from or abutting the spleen in the left upper quadrant measuring up to 7.5 cm. It contains a small amount of calcification. Suggest correlating with any prior imaging study that could offer additional characterization. If none are available suggest followup imaging to confirm stability and consider contrast enhanced CT or MRI for further characterization when patient condition permits. 3. Small bilateral pleural effusions, left larger than right, with associated compressive atelectasis. 4. Severe coronary artery calcification. Kilo Coulter MD Renal Ultrasound 02/27/17 0000 Signed Impressions: Service Date/Time: Monday, February 27, 2017 20:36 - CONCLUSION: 1. Mildly dilated left renal collecting system. Kidneys normal in size. Trace free fluid. Ruy Hussein MD Head CT 02/23/17 0000 Signed Impressions: Service Date/Time: Thursday, February 23, 2017 07:38 - CONCLUSION: No significant change has occurred. Maximus Pavon MD Objective Remarks GENERAL: 57-year-old male, intermittently agitated on ventilator via tracheostomy. SKIN: Warm and dry. HEAD: Atraumatic. Normocephalic. EYES: Pupils equal, 2 mm bilaterally and reactive. ENT: No nasal bleeding or discharge. NECK: Trachea midline. Trach site with pressure wound at lower half. Thick white secretions CARDIOVASCULAR: RRR, tachycardic. S1, S2 no S4. Without murmur. No JVD. RESPIRATORY: Diminished breath sounds left lung thomas. Bilateral rhonchi. GASTROINTESTINAL: Abdomen soft, non-tender, nondistended. Active bowel sounds. No guarding. MUSCULOSKELETAL: Extremities without without significant peripheral edema. Well perfused. NEUROLOGICAL: Follows commands bilateral upper and lower extremities. Moves extremities x 4 spontaneously. Agitated. Procedures 03/28: Bronchoscopy Date of Insertion: Feb 23, 2017 A/P Assessment and Plan Neuro/Psych: Encephalopathy/Delirium most likely metabolic Admission with EtOH withdrawal - likely completed Polysubstance abuse including cocaine and benzodiazepines Polyneuropathy of critical illness Agitation Improved neuro exam. Was following commands, oriented to person place and time before sedation for intubation and trach 03/20/17 Patient is followed by Dr. Rogel neurology. EEG's reveal moderate encephalopathy no epileptiform activity. MRI negative for acute findings Previously on Seroquel 25 mg at night DCd and Haldol when necessary- discontinued 03/15/17 Librium DCd 03/15/17 Seizure precautions ?Seizures 03/10-EEG negative for seizures. Continue thiamine 100 mg daily Will hold all sedative medications, continue supportive care when patient's agitated. 03/23- cognitive evaluation by Dr. Sheriff -no decision-making capacity 03/24 lorazepam discontinued Respiratory: Acute hypoxemic respiratory failure secondary to aspiration Recurrent left lower lobe collapse/mucus plugging Complete opacification of left lung field due to mucus plugging 03/18/17 s/p tracheostomy 03/20/17 Status post extubation after therapeutic bronchoscopy 03/18/17 and reintubated for left lower lobe collapse on 03/20/17 s/p Tracheostomy 03/21/17. Difficult bronchoscopy with therapeutic scope and multiple attempts to remove very thick mucus plugs from left main bronchus. Albuterol/ipratropium aerosols every 6 hours with albuterol aerosols to daily at bedtime as needed for dyspnea Added hypertonic saline 3% every 6 hours 5 days Chest percussion with speciality bed Currently on methylprednisolone 40 mg IV twice a day CT thorax from 03/09 revealed collapse left upper/lingula lobes with significant secretions left main bronchus. s/p bronch Improved aeration 03/10 Continue attempts at T piece trials, aggressive pulmonary toileting 03/28 and 04/02 Bronchoscopy Cardiovascular: Hypertension Currently on metoprolol 25 mg twice a day and drowsing 25 mg twice a day for hypertension Use when necessary labetalol and hydralazine when patient is nothing by mouth Maintain MAP > 65 mmHG Discontinued Bumetanide Renal: Acute kidney injury secondary to ATN Accurate I's and O's, Monitor urine output. No signs of hydronephrosis on renal imaging, Urine eosinophils negative No labs done several days. Transition to hospice care in a.m. FEN/GI: Mild protein calorie malnutrition Hyperkalemia-resolved Hep C Continue tube feeds, hold off PEG tube as patient may be able to take PO diet once off vent Lansoprazole for GI prophylaxis Docusate sodium senna 1 tablet twice a day for bowel regimen. Free water 250cc every 8 hours Heme/ID: Macro Anemia Thrombocytopenia Probable Pneumonia F/U BAL 03/15-neg to date On previous cultures in BAL have been negative except 02/23 coag negative staph which is contamination Cefepime discontinued 03/19/17, DCd Flagyl and azithromycin 03/09/17-03/15/17 10/ C Diff negative Endocrine: Sliding-scale insulin to maintain euglycemia/low regimen with NovoLog every 6 hours Prophylaxis: GI Prophylaxis Lansoprazole DVT Prophylaxis SCDs/heparin subcutaneous Lines: Peripheral IVs providing adequate access at this time. Level II follow-up. Hospice care center in [facility] 04/03. Barrington Vazquez MD Apr 02, 2017 21:16
[2017-04-02] MEDS: RESP: ALBUTEROL 2.5 MG/IPRATROPIUM 0.5 MG NEB (SCH) NEB (22:05)
[2017-04-02] MEDS: RESP: SODIUM CHLORIDE 3% 4 ML NEB NEB SCH (22:21)
[2017-04-03] VITALS (16 sets, daily range): BP systolic 79–140; BP diastolic 53–100; PULSE 80–97; RESP 15–19; TEMP 97.7–98.7; O2SAT 78–98
[2017-04-03] MEDS: RESP: ALBUTEROL 2.5 MG/IPRATROPIUM 0.5 MG NEB (SCH) NEB ×2 (04:41→08:24)
[2017-04-03] MEDS: RESP: SODIUM CHLORIDE 3% 4 ML NEB NEB SCH ×2 (04:41→08:24)
[2017-04-03] MEDS: ARTIFICIAL TEARS OPTH SOLN 15 ML BTL EACH EYE SCH ×3 (05:28→20:54)
[2017-04-03] MEDS: FREE WATER G-TUBE SCH (05:28)
[2017-04-03] MEDS: QUEtiapine FUMARATE 25 MG TAB PO SCH (07:50)
[2017-04-03] MEDS: MULTIVITAMIN TAB PO SCH (07:50)
[2017-04-03] MEDS: THIAMINE HCL 100 MG TAB PO SCH (07:50)
[2017-04-03] MEDS: HYOSCYAMINE 0.125 MG TAB PO PRN (07:50)
[2017-04-03] MEDS: methylPREDNISolone SOD SUCC 125 MG/2 ML VIAL IV PUSH SCH (07:51)
[2017-04-03] MEDS: BUDESONIDE-FORMOTEROL 160/4.5 MCG INHALER INH SCH (07:51)
[2017-04-03] MEDS: METOPROLOL TARTRATE 25 MG TAB PO SCH (07:51)
[2017-04-03] MEDS: LANSOPRAZOLE SOLUTAB 30 MG TAB NG SCH (07:51)
[2017-04-03] MEDS: SODIUM CHLORIDE 0.9% FLUSH 10 ML FLUSH IV FLUSH SCH (07:51)
[2017-04-03] MEDS: TIOTROPIUM BROMIDE 18 MCG INH INH SCH (07:52)
[2017-04-03] MEDS: CHLORHEXIDINE 0.12% (ORAL KIT) 15 ML CUP MT SCH ×2 (07:52)
[2017-04-03] MEDS: BENEPROTEIN POWDER 1 PACK G-TUBE SCH (07:52)
--- NOTE | 2017-04-03 12:04 | HHI.FPPN ---
Subjective Remarks Patient seen and examined this morning. Patient does appear very agitated and continues to insinuate that he would like water. The patient's significant other is bedside and is asking about where the patient will be going next. Patient did have a desaturation into the 80s yesterday and required another bronchoscopy with release of multiple mucous plugs. Objective Vitals Vital Signs Date Time Temp Pulse Resp B/P (MAP) Pulse Ox O2 Delivery O2 Flow Rate FiO2 04/03/17 10:00 92 04/03/17 08:24 93 90 04/03/17 08:00 82 04/03/17 08:00 90 04/03/17 08:00 98.7 96 17 140/100 (113) 94 04/03/17 07:00 100 Trach Collar 60 04/03/17 06:00 82 04/03/17 04:42 98 70 04/03/17 04:00 82 04/03/17 04:00 90 04/03/17 04:00 98.0 82 16 110/82 (91) 98 04/03/17 02:00 85 04/03/17 01:49 70 04/03/17 01:03 93 60 04/03/17 00:00 60 04/03/17 00:00 98.5 84 19 121/81 (94) 92 04/03/17 00:00 84 04/02/17 23:50 99 60 04/02/17 22:05 94 50 04/02/17 22:00 90 04/02/17 20:00 80 04/02/17 20:00 98.2 83 18 133/83 (100) 97 04/02/17 20:00 83 04/02/17 19:00 99 Trach Collar 60 04/02/17 18:00 102 04/02/17 17:13 99 80 04/02/17 16:00 99 100 04/02/17 16:00 100 04/02/17 16:00 97.0 92 16 111/84 (93) 98 04/02/17 16:00 92 04/02/17 15:04 100 04/02/17 15:04 97.0 80 19 119/79 (92) 93 04/02/17 14:00 96.8 92 16 111/84 (93) 98 04/02/17 14:00 100 04/02/17 14:00 100 I/O 04/02/17 04/02/17 04/02/17 04/03/17 04/03/17 04/03/17 07:00 15:00 23:00 07:00 15:00 23:00 Intake Total 1188 ml 398 ml 1167 ml Output Total 800 ml 600 ml 600 ml Balance 388 ml -202 ml 567 ml Tube Feeding 708 ml 398 ml 667 ml Other 480 ml 500 ml Output Urine Total 800 ml 600 ml 600 ml # Voids 2 4 # Bowel Movements 1 1 2 Result Diagram: 03/30/17 0400 Objective Remarks GENERAL: Patient is awake and irritated. Patient is lying in bed, on vent patient still leaning to his left. Patient seems to have frequent coughing fits. SKIN: Multiple well-healing scabs on right arm. HEENT: On trach to vent. Pupils grossly symmetrical and reactive. CARDIOVASCULAR: RRR without appreciable murmurs. grossly normal perfusion. No edema RESPIRATORY: normal rate; equal breath sounds (s/p suctioning, improvement from previous exam), moving air well without wheezing GASTROINTESTINAL: +Hyperactive BS, Abdomen soft, non-distended, non-tender GENITOURINARY: catheter draining yellow urine MUSCULOSKELETAL: no cyanosis, no edema. No calf tenderness. NEURO: Patient is awake and alert, tracking with his eyes, and trying to communicate by mouthing words Procedures * 03/20/17 -Bronchoscopy & Tracheostomy placement * 03/20/17 -Reintubation * 03/19/17 -Extubated * 03/18/17 -Bronchoscopy * 03/15/17 -bronchoscopy * 03/12/17 -reintubated * 03/12/17 -medical extubated * 03/09/17 -endotracheal Intubation * 03/09/17 -Bronchoscopy Date of Insertion: Feb 23, 2017 A/P Assessment and Plan 57-year-old white male with past medical history of alcohol withdrawal presented to the ED with severe hypoglycemia and altered mental status; patient has had progressively worsening renal function and is currently being followed for renal failure and continued altered mental status. Pt recently required intubation and sedation for respiratory distress and imaging with opacification of the left lung concerning for left lung collapse in the context of mucus plugging, which was removed on 03/09 and again on 03/18, 03/20, 03/28. Patient has been reintubated multiple times. Tracheostomy on 03/20. Patient still seems to wax and wane. 03/30: DNR status now per patient's prior directives. Continued issues with lung collapse. Discharge Planning Working on plan of care with assistant case manager and palliative care social media editor and hospice. Psychiatry was consulted and determined that patient does not have decision-making capacity. Healthcare proxy (sister): Decision for DNR. Problem List: (1) Altered mental status ICD Codes: R41.82 - Altered mental status, unspecified Status: Acute Plan: hx of hypoxic episodes on trach with multiple bronchoscopies, little improvement overall, poor prognosis - pt now on vent; not tolerating CPAP or T-Piece -Seroquel 25 mg BID for agitation; wean sedation as tolerated, but still must treat agitation -IV solumedrol q12h -CPT - f/u with Case Management: possible vent facility that accepts Medicaid? f/u with hospice recommendations -Continue treatment of chronic alcoholism -Continue PO multivitamin -PO thiamine -Occupational therapy recommended OT at rehabilitation (PT recommended OT). -PT, OT, ST -Continue tube feeds at 55ml/hr and 1L of free water per dietary; Seizure precautions Impression: AMS initially suspected secondary to alcoholism or polysubstance abuse; persistent. could be anoxic brain injury from hypoglycemia (2) Respiratory disease ICD Codes: J98.9 - Respiratory disorder, unspecified Status: Acute Plan: 03/27 and 04/02: Episode of hypoxemic respiratory failure, needed bronchoscopy to remove mucous plugs - Cont Pulmonary toileting with suction - See A/P above Patient re-intubated on 03/20/17. Impression: Encephalopathic with likely WATERSHED TENDER damage from polysubstance abuse and/ or anoxic brain injury from hypoglycemia. Thus, patient may be unable to protect airway. Patient with repeated mucous plugging and lung collapses on imaging. Thick secretions likely due to undiagnosed COPD. (3) SAQIB (acute kidney injury) ICD Codes: N17.9 - Acute kidney failure, unspecified Status: Chronic Plan: -Nephrology following: Diagnosed with Acute renal failure acute tubular necrosis with drug use stable creatinine and output - f/u urine output -Bumex 1mg IV q12h (low dose) Hx CT scan abdominal reviewed Subtle high density stranding medial/upper right kidney. Abnormal mass arising from/abutting spleen LUQ measuring up to 7.5 cm with small amount of calcification. Hepatitis C positive Ammonia not high FIDEL is positive 1:80, low titre. ANCA negative (4) Hypertension ICD Codes: I10 - Essential (primary) hypertension Status: Chronic Plan: -Hold Amlodipine 10mg PO daily -Hold Hydralazine 25 mg q12h since hypotension -Hydralazine 20 mg IV push every hour when necessary for blood pressure over 160 /90 -Labetalol 20 mg IV push every 4 hours when necessary for systolic blood pressure over 160 -Metoprolol 25 mg q12h -Clonidine 0.1 mg q6h PRN For SBP >/= 170, DBP >/= 100 -Maintain MAP > 65 mmHG -Bumex as above Impression: BPs stable (5) Skin breakdown ICD Codes: L90.9 - Atrophic disorder of skin, unspecified Status: Resolved Plan: inferior to site of trach. - wound care c/s appreciated (6) FEN Status: Acute Plan: Fluids: through NGT Electrolytes: Monitor and replace per protocol Nutrition: Tube feeds with free water, We cannot do swallow study to evaluate for PO because of patient's recent deterioration GI PPx: Lansoprazole 30 mg NG/day VTE prophylaxis: Heparin 5000 units every 12 hours and SCDs Problem Qualifiers (1) Altered mental status: Qualified Codes: R41.0 - Disorientation, unspecified (2) Hypertension: Qualified Codes: I10 - Essential (primary) hypertension Bonnie Pan MD R2 Apr 03, 2017 12:04
--- NOTE | 2017-04-03 12:30 | HHI.HCPN ---
Reason for visit a. To assist with evaluation and management of symptoms including: Shortness of breath, debility, confusion b. To assist medical decision maker(s) with: better understanding of current medical conditions; weighing benefits/burdens of medical treatment options; making medical treatment decisions. Subjective/Interval History Mr. Cuevas is a 57 year old male with a medical history significant for EtOH use and abuse, tobacco use and abuse and depression. Patient was brought to [facility] ED on 02/23/17 via [place] the 40s. Patient was admitted for management of altered mental status associated with withdrawal delirium tremens and cellulitis to right upper extremity. Clinical course complicated by acute kidney failure, persistent altered mental status and respiratory failure requiring intubation and mechanical ventilation. Palliative care consulted for further clarifications of goals of care. Interval history: 03/23/[address] Sheriff consulted for decision capacity evaluation, patient currently deemed not capacitated to make any medical decisions at this time. Patient is requiring recurrent bronchoscopies for mucus plugging and collapse of the left lung. This was discussed with the sister who states she wants absolutely no new interventions and wants the patient transitioned to withdrawal of vent support with hospice care. This was discussed with Dr. Vazquez who agrees that the patient is not responding to treatment and will likely require recurrent bronchoscopies with no likelihood of good recovery. Consents were signed and forwarded to the patient's sister, Lore Darling, who is the healthcare surrogate for review. Plan for possible withdrawal 04/03. 04/03 - signed exhibits received from the sister. Discussion was held again to ascertain her wishes and she again confirmed withdrawal of vent support. . . Family/friend interactions With sister, Lore Darling and girlfriend, Beverly, who both agree that patient would not wish to continue his hospitalization with aggressive treatment. I also discussed this with the patient who, while has questionable capacity, is able to interact and respond. When queried regarding continuation of therapy patient shook his head no. When asked if he would prefer to withdraw ventilator support and pass naturally, he nodded yes. He did acknowledge that he is aware that he will likely when ventilator is withdrawn. When asked if he agreed with that, he did again nodded yes. Exhibits were placed on the chart. Advance Directives Living Will: Copy in medical record Health Care Surrogate: Copy in medical record Durable Power of [employer]: Never completed Advance Directive Specifics Date completed: 03/20/2017 . Health Care Surrogate(s): Sister-Lore Darling . Objective Vital Signs Date Time Temp Pulse Resp B/P (MAP) Pulse Ox O2 Delivery O2 Flow Rate FiO2 04/03/17 10:00 92 04/03/17 08:24 93 90 04/03/17 08:00 82 04/03/17 08:00 90 04/03/17 08:00 98.7 96 17 140/100 (113) 94 04/03/17 07:00 100 Trach Collar 60 04/03/17 06:00 82 04/03/17 04:42 98 70 04/03/17 04:00 82 04/03/17 04:00 90 04/03/17 04:00 98.0 82 16 110/82 (91) 98 04/03/17 02:00 85 04/03/17 01:49 70 04/03/17 01:03 93 60 04/03/17 00:00 60 04/03/17 00:00 98.5 84 19 121/81 (94) 92 04/03/17 00:00 84 04/02/17 23:50 99 60 04/02/17 22:05 94 50 04/02/17 22:00 90 04/02/17 20:00 80 04/02/17 20:00 98.2 83 18 133/83 (100) 97 04/02/17 20:00 83 04/02/17 19:00 99 Trach Collar 60 04/02/17 18:00 102 04/02/17 17:13 99 80 04/02/17 16:00 99 100 04/02/17 16:00 100 04/02/17 16:00 97.0 92 16 111/84 (93) 98 04/02/17 16:00 92 04/02/17 15:04 100 04/02/17 15:04 97.0 80 19 119/79 (92) 93 04/02/17 14:00 96.8 92 16 111/84 (93) 98 04/02/17 14:00 100 04/02/17 14:00 100 Intake & Output 04/03/17 04/03/17 07:00 19:00 Intake Total 1167 ml Output Total 600 ml Balance 567 ml Tube Feeding 667 ml Other 500 ml Output Urine Total 600 ml # Voids 4 # Bowel Movements 2 Physical Exam CONSTITUTIONAL/GENERAL: This is an ill looking male who looks older than stated age, trached on Tpiece status post bronchoscopy. TUBES/LINES/DRAINS: PIVs, , SCDs. NGT to right nare SKIN: Rash/ecchymosis to RUE. Scattered ecchymoses on upper extremities. Open areas/scabs to right upper extremity. Scattered scabs on face. Skin temperature appropriate. HEAD: Atraumatic. Normocephalic. EYES: Pupils equal and round and reactive. No scleral icterus. No injection or drainage. NECK: Trachea midline. Supple, nontender. CARDIOVASCULAR: Regular rhythm, controlled rate, S1, S2, no murmur. RESPIRATORY/CHEST: Lungs diminished with left rhonchi and wheezes, right side course. GASTROINTESTINAL: Abdomen soft, non-tender, nondistended. Bowel sounds present. GENITOURINARY: Without palpable bladder distension. Condom catheter. MUSCULOSKELETAL: Extremities without clubbing, cyanosis. 1+ dependent edema. NEUROLOGICAL: Awake, nods yes and shakes had no in response to questions. PSYCHIATRIC: Calm. Diagnostic Tests Laboratory Date/Time Source Procedure Growth Status 03/02/17 10:56 Blood Peripheral Aerobic Blood Culture - Final NO GROWTH IN 5 DAYS Complete 03/02/17 10:56 Blood Peripheral Anaerobic Blood Culture - Final NO GROWTH IN 5 DAYS Complete 03/02/17 11:50 Stool Stool Stool Occult Blood (LILLY) - Final HEMOCCULT NEGATIVE Complete 03/15/17 15:40 Bronchial Brushings Left Lower Lobe Fungal Smear - Final NO FUNGAL ELEMENTS SEEN. Resulted 03/15/17 15:40 Bronchial Brushings Left Lower Lobe Fungal Culture - Preliminary NO GROWTH IN 2 WEEKS Resulted 03/09/17 18:50 Urine Catheterized Urine Streptococcus pneumoniae Antigen (M - Final PRESUMPTIVE NEGATIVE FOR STREPTOCOCCU... Complete Result Diagram: 03/30/17 0400 Imaging Last Impressions Chest X-Ray 04/02/17 0000 Signed Impressions: Service Date/Time: Sunday, April 02, 2017 16:40 - CONCLUSION: Interval improvement left base following bronchoscopy.. No pneumothorax Nasir Mack MD FACR Abdomen X-Ray 03/13/17 0000 Signed Impressions: Service Date/Time: Monday, March 13, 2017 13:04 - CONCLUSION: 1. The tip of the NG tube is just through the GE junction and into the stomach. Cliff Mack MD Brain MRI 03/10/17 0000 Signed Impressions: Service Date/Time: Friday, March 10, 2017 15:01 - CONCLUSION: No acute infarct or other acute intracranial abnormality. Atrophy and chronic white matter changes are again noted. Kilo Rowell MD Chest CT 03/09/17 0000 Signed Impressions: Service Date/Time: Thursday, March 09, 2017 04:59 - CONCLUSION: 1. Marked volume loss in the left hemithorax with near-complete collapse of the left lower lobe/lingula. There is still some aeration in the left upper lung. Some of this is due to the moderate sized left-sided effusion although there may be element of airway obstruction/mucus plugging as well. 2. Small right-sided effusion with become atelectatic changes in the right base. 3. Patchy biapical airspace disease.. Tone Henry MD Shoulder X-Ray 03/05/17 0000 Signed Impressions: Service Date/Time: Sunday, March 05, 2017 20:57 - CONCLUSION: No acute disease. Rick Sanford MD Abdomen/Pelvis CT 03/04/17 0000 Signed Impressions: Service Date/Time: Saturday, March 04, 2017 10:31 - CONCLUSION: 1. There is no hydronephrosis or renal abnormality to explain the renal failure. However, there is subtle high density stranding along the medial and upper pole of the right kidney. Suggest followup CT to assess for change. 2. Abnormal mass arising from or abutting the spleen in the left upper quadrant measuring up to 7.5 cm. It contains a small amount of calcification. Suggest correlating with any prior imaging study that could offer additional characterization. If none are available suggest followup imaging to confirm stability and consider contrast enhanced CT or MRI for further characterization when patient condition permits. 3. Small bilateral pleural effusions, left larger than right, with associated compressive atelectasis. 4. Severe coronary artery calcification. Kilo Coulter MD Renal Ultrasound 02/27/17 0000 Signed Impressions: Service Date/Time: Monday, February 27, 2017 20:36 - CONCLUSION: 1. Mildly dilated left renal collecting system. Kidneys normal in size. Trace free fluid. Ruy Hussein MD Head CT 02/23/17 0000 Signed Impressions: Service Date/Time: Thursday, February 23, 2017 07:38 - CONCLUSION: No significant change has occurred. Maximus Pavon MD Procedures * * 03/27/17 - * 03/20/17 -Bronchoscopy & Tracheostomy placement * 03/20/17-Reintubation * 03/19/17 -Extubated * 03/18/17 -Bronchoscopy * 03/15/17 -bronchoscopy * 03/12/17 -reintubated * 03/12/17 -medical extubated * 03/09/17 -endotracheal Intubation * 03/09/17 -Bronchoscopy . Assessment and Plan Disease Oriented Problem List: (1) Acute hypoxemic respiratory failure (2) Acute kidney injury (3) PNA (pneumonia) (4) Encephalopathy (5) Cellulitis (6) Protein-calorie malnutrition (7) Physical deconditioning Symptom Scale: (1) Shortness of breath 0-10 Scale: Unable to quantify Comment: Now trached on T Rogers, FIO2 40% .. (2) Anxiety 0-10 Scale: Unable to quantify (3) Debility 0-10 Scale: Unable to quantify Comment: Progressive given acute events and prolonged hospitalization. Pertinent Non-Medical Issues Psychosocial: Patient is homeless. Chronic alcohol abuse and polysubstance abuse. On an admission in April, patient stated that he grew up in [place], [place], highest level of education is high school. Patient has as per records. Patient's mother and father . Patient also reported that he had been incarcerated at least 50 times. Reported by his friend, Beverly, to have been a in the [employer]. This is under investigation to verify the information. Spiritual: Unknown. Legal: unknown if advance directives have been completed. Ethical issues impacting care: Important Contacts Lore Darling (sister): [phone] Salima Whyte (presented as patient`s ) . Prognosis Mr. Cuevas is a 57 years old male with a medical history significant for EtOH use and abuse, tobacco use and abuse and depression. Patient was brought to [facility] ED on 02/23/17 via [place] sugar in the 40s. Patient was admitted for management of altered mental status associated with withdrawal delirium tremens and cellulitis to right upper extremity. Clinical course complicated by persistent encephalopathy, acute kidney injury and respiratory failure required intubation , tracheostomy and mechanical ventilation. Patient's overall prognosis is poor given the above. . Code Status: No Code Plan PLAN: Legal decision maker: Patient trached and deemed incapacitated to make his own medical decisions by Psychiatry. Patient`s sister Lore Darling is now his [place] care surrogate and will assist with medical decision while patient is incapacitated. Goals: Transition to comfort, consult hospice, plan for compassionate withdrawal of ventilator. CODE STATUS: DNR SYMPTOMS: * Dyspnea - patient trached 03/20/17 and remains on mechanical ventilation. O2 Sat adequate in the 90s. He has undergone 6 bronchoscopies with recurrent persistent mucus plugging and collapse of the left lung. Last bronchoscopy done 04/02. Exhibits signed for compassionate vent withdrawal. Sister, ARABELLA Darling and girlfriend, September both in agreement. * Debility - he is extremely weak and fatigued. He has been wheelchair bound since 2001 but had previously been able to ambulate with one assist and a cane. For the last year and a half he has been wheelchair bound and will require intensive therapy to recover any function. * Confusion - currently he is unable to speak due to tracheostomy, however, can nod his head. At this evaluation he is not in his head yes to all questions. There is concern that he may not be able to process what is being said to him. His sister is his healthcare surrogate and believes he would not wish to exist in this condition and undergo ventilation, restraints and recurrent invasive procedures. Patient has been declared incapacitated to make his own decisions by psychiatry, however the impending withdrawal was discussed with him today and he indicated his agreement with the plan as above. Palliative care will continue to follow the patient during hospital course as condition evolves, to assist patient/decision-maker with understanding of their medical conditions, weighing benefits/burdens of treatment options, for clarification of goals of treatment. Additionally will assist with any symptoms of palliative concern . Attestation To help prompt me to consider important information that might be impacting today's encounter and assessment, information from prior notes written by myself or my colleagues may have been "brought forward" into today's note. My signature on this note, however, is an attestation that I personally performed the exam, history, and/or decision-making noted today, and, unless otherwise indicated, the interactions with patient, family, and staff as well as the review of records all occurred today. I also attest that the listed assessment and stated plan reflect my best clinical judgment today based on the combination of historical information, prior notes, and today's exam/ interactions. When time spent is documented, it refers only to time spent today by the signer, or if indicated, combined time spent today by collaborating physician/nurse practitioner. Shannan Arams Apr 03, 2017 12:30
[2017-04-03] MEDS ORDERED: LORazepam 2 MG/ML VIAL IV PUSH PRN ×3 (12:45→13:15)
[2017-04-03] MEDS ORDERED: MORPHINE SULFATE 8 MG/ML INJ IV PUSH ONE (12:45)
[2017-04-03] MEDS ORDERED: LORazepam 2 MG/ML VIAL IV PUSH ONE ×2 (12:45→13:00)
[2017-04-03] MEDS ORDERED: BISACODYL 10 MG SUPP RECTAL PRN (13:15)
[2017-04-03] MEDS ORDERED: FUROSEMIDE 20 MG/2 ML VIAL IV PUSH PRN (13:15)
[2017-04-03] MEDS ORDERED: ACETAMINOPHEN 650 MG SUPP RECTAL PRN (13:15)
[2017-04-03] MEDS ORDERED: MORPHINE SULFATE 4 MG/ML INJ IV PUSH PRN (13:15)
[2017-04-03] MEDS: MORPHINE SULFATE 4 MG/ML INJ IV PUSH ONE ×2 (13:27→15:00)
[2017-04-03] MEDS: LORazepam 2 MG/ML VIAL IV PUSH SCH ×3 (15:00→20:53)
[2017-04-03] MEDS: LORazepam 2 MG/ML VIAL IV PUSH PRN ×5 (15:08→19:30)
--- NOTE | 2017-04-03 15:49 | HHI.CCPN ---
Subjective Remarks/Hospital Course This is a 57-year-old male that was found down and admitted to this hospital 02/23/2017. Urine tox screen revealed patient was positive for benzodiazepines and cocaine at that time. Since admission the patient has been on a [facility] protocol, neurology has been consulted Dr. Wayne, with continued supportive care. Over the last 48 hours the patient was noted to have elevation in his creatinine with a significant decrease in urine output acute renal failure nephrology was consulted the patient continues on gentle diuresis and received 80 mg of Lasix IV this afternoon and is currently on sodium bicarbonate infusion at 110 cc/an hour. Due to the patient's respiratory insufficiency, and altered mental status concern for possible continued respiratory decompensation the patient was transferred to the ICU, and critical care was consulted for management. Upon entering the patient's room the patient was noted to be lethargic having received 4 mg of Ativan in the last 4 hours, but opens eyes to sternal rub. The patient was noted to have O2 saturation of 95% on O2 via nasal cannula at 5 L with no accessory respiratory efforts. Stat ABG was ordered pending, to rule out CO2 narcosis. Since admission to ICU the patient was noted to diuresis of 700 cc. 03/03: Afebrile. The patient did not receive any Ativan since 3 PM on 03/02/17. The patient rested well overnight, eventually waking and responding. This a.m. the patient's noted to be sitting up in bed, alert and responsive. Librium has been added to medication regimen for alcohol withdrawal. Noted to be oriented to date of unable to provide name or place at this time. Essential tremors, fine tremors noted. The patient severely weak and unable to feed self without assistance. The patient's diet was advanced to regular diet, tolerating well, 100% consumption. PO meds were held since admission to ICU secondary to lethargy, all by mouth meds resumed this a.m.. The patient currently is compliant following commands, inappropriate responses, with noted incomprehensible words, language at times. Patient is noted to be very weak. Nasal cannula O2 has been weaned down to approximately 3 L, the patient appears in no respiratory distress. 03/09: Reconsulted secondary acute respiratory failure. Chest x-ray earlier in the morning revealed collapse versus large pleural effusion left side. Patient oxygen requirements had increased from 4 L to a nonrebreather mask. CT thorax revealed likely mucous plugging/collapsed lung left side. Small to moderate left pleural effusion. Patient was combative upon arrival ICU in place in soft restraints. Due to mental status/mucous plugging patient was electively intubated using 20 mg etomidate and 50 mg, rocuronium. Patient was bronched which revealed thick white mucous plugging in the left and right mainstem. These were lavaged to left upper lobe/lingula and left lower lobe, right upper middle and lower lobes. Samples were sent see orders. Currently sedated with propofol and fentanyl drips. 03/10: Tonic seizures today when propofol stopped. Seizures ceased with propofol bolus. Left pneumonia persists but improved aeration after bronch . 03/11: Gas exchange acceptable. Continues to have tonic "seizures" when propofol is lightened. EEG 03/10 states no seizures but we will repeat EEG again today with stimulation and off propofol. Can't extubate until this "seizure" activity is resolved. Vomited tube feeds, will reduce and add reglan. 03/12: Off sedation tolerating CPAP even though intermittently apneic. Appears to follows commands but weekly on the upper extremity. No obvious seizures. EEG negative for seizure 03/11/17. Creatinine slightly improved to 2.8 from 3 03/13: Failed extubation on 03/12. Currently sedated, orally intubated on mechanical ventilation. Has thick copious respiratory secretions per CNA PER DIEM. 03/14: Remains sedated, orally intubated on mechanical ventilation. Feeling C Pap trials. Not following commands on lightening sedation. 03/15: Remains intubated encephalopathy. Left lower lobe infiltrate again indicating probable mucous plugging/collapse. Palliative care meeting with family today. I recommend tracheostomy and PEG tube placement. D/W palliative care team 03/16: Off sedation since yesterday 5PM. Eyes open spontaneously. Following commands bilateral upper extremity, he squeezes with both hands. Discussed with Dr. Kingston. Will continue weaning attempt with plan for wean to extubate. s/p bronchoscopy yesterday, with re expansion of L lung. Has moderate secretions. I have updated Lore Darling (sister) about improvement in neuro exam. See below 03/17: Tolerated CPAP 7 hours yesterday. Currently on CPAP. Lethargic/somnolent but follows commands, gives thumbs up on bilateral UE. Creat stable. UO 750 ml in 24 hours. BAL negative to date 03/18: Remains intubated off sedation. There is further improvement in neuro exam, able to move both feet to command, gives thumbs up on both upper extremities. Chest x-ray shows complete white out of the left lung field. We' ll plan for emergency bronchoscopy 03/19: Extubated yesterday, overnight appeared to be having mucus plugging involving L lung. But currently patient is saturating well. He somnolent but wakes up easily and nodding appropriately and following commands, in the bilateral upper extremity 03/20: Today around 5.30 AM, patient acutely became hypoxemic with diminished breath sounds on the left lung field. Placed on nonrebreather clinical exam was consistent with left lower lobe mucus plugging according to Dr. Chadwick. With aggressive suctioning and Mucomyst and DuoNeb breathing treatments, patient 's air entry and saturation improved slightly. Currently on 100% nonrebreather oxygen saturation 90-92% tachypneic but not in severe distress. I discussed tracheostomy with the patient, witnessed by WHITNEY Marcial and Dixie. I explained to him that If he gets reintubated he will need tracheostomy due to frequent mucus plugging, with left lung collapse. Patient understands tracheostomy procedure, and wants tracheostomy done in case of reintubation. 03/21: Re intubated yesterday for LLL collapse. Tracheostomy performed yesterday afternoon. Difficult bronchoscopy with therapeutic bronchoscope and multiple attempts to remove the mucus plugging because of the very thick tenacious nature of the plugs. Continue breathing treatments Mucomyst for now. Chest percussion with speciality bed. 03/22: The patient tolerated trach collar trials approximately 1 hour yesterday. The patient continues to have thick secretions, aggressive pulmonary toileting continues with chest percussion. Today the patient indicated that he wanted to be placed back on DNR status. Discussion with family medicine primary service team for cognitive evaluation by psychiatry to assess competency in making this decision. Will continue care as planned, overweight recommendations from psychiatry and palliative medicine. Will hold medication for agitation until assessment is performed, and continue supportive care. 03/23: Acute events overnight. Patient tolerated T piece trials for approximately 5 hours yesterday. Psychiatry consulted seen today. The patient was deemed not competent, full report pending. 03/24: Patient became agitated during the night received 2 doses of Ativan which were ineffective Seroquel added to medication regimen low dose. The patient successfully underwent T piece trials for 6.5 hours yesterday as well as CPAP for 3 hours. Psychiatry was consulted and the patient was deemed not to have any decision-making capacity and sister continues to be the healthcare surrogate for the patient. Yesterday a female individual into the room and stated that she was the patient's palliative care was re-consulted as well as case management to follow-up if the individual is the patient's next of kin. The patient's sister states she was unaware that the patient was . 03/25: Patient noted to be less agitated today Seroquel was initiated yesterday. Patient tolerated T piece trials for approximately 4 hours yesterday. Creatinine improving today. 03/26: No acute events overnight. the patient has been maintained on TPiece trials for 12 hours. 03/27: This a.m. the patient was noted to be in hypoxemic respiratory failure, O2 sat precipitously dropped into the 70s. Aggressive pulmonary toileting with suctioning thick tenacious mucus was obtained, stat chest x-ray, 100% FiO2 with clearing. Mucomyst 2 days ordered .Plan bronchoscopy if no improvement. 03/28: Unable to wean ventilator. 03/29: Severely agitated intermittently. Ventilator dependent. 03/30: DNR status now per patient's prior directives. Continued issues with lung collapse. 03/31: Minor irritation below trach site with break in skin. 04/01: Interacts but unclear what he understands. He is hungry. 04/02: Status post bronchoscopy today for mucus plugging. Afebrile. Off care proxy desires hospice care at the present time. Exhibits B&C signed. Subjective 04/03: Withdrawals care at 1500. Comfort measures been initiated. Objective Vital Signs Date Time Temp Pulse Resp B/P (MAP) Pulse Ox O2 Delivery O2 Flow Rate FiO2 04/03/17 14:00 88 04/03/17 13:18 92 100 04/03/17 12:00 98.0 18 129/85 (100) 04/03/17 07:00 Trach Collar 03/30/17 12:00 6.00 Intake and Output 04/03/17 04/03/17 04/04/17 08:00 16:00 00:00 Intake Total 1167 ml Output Total 600 ml Balance 567 ml Result Diagram: 03/30/17 0400 Imaging Last Impressions Chest X-Ray 04/02/17 0000 Signed Impressions: Service Date/Time: Sunday, April 02, 2017 16:40 - CONCLUSION: Interval improvement left base following bronchoscopy.. No pneumothorax Nasir Mack MD FACR Abdomen X-Ray 03/13/17 0000 Signed Impressions: Service Date/Time: Monday, March 13, 2017 13:04 - CONCLUSION: 1. The tip of the NG tube is just through the GE junction and into the stomach. Cliff Mack MD Brain MRI 03/10/17 0000 Signed Impressions: Service Date/Time: Friday, March 10, 2017 15:01 - CONCLUSION: No acute infarct or other acute intracranial abnormality. Atrophy and chronic white matter changes are again noted. Kilo Rowell MD Chest CT 03/09/17 0000 Signed Impressions: Service Date/Time: Thursday, March 09, 2017 04:59 - CONCLUSION: 1. Marked volume loss in the left hemithorax with near-complete collapse of the left lower lobe/lingula. There is still some aeration in the left upper lung. Some of this is due to the moderate sized left-sided effusion although there may be element of airway obstruction/mucus plugging as well. 2. Small right-sided effusion with become atelectatic changes in the right base. 3. Patchy biapical airspace disease.. Tone Henry MD Shoulder X-Ray 03/05/17 0000 Signed Impressions: Service Date/Time: Sunday, March 05, 2017 20:57 - CONCLUSION: No acute disease. Rick Sanford MD Abdomen/Pelvis CT 03/04/17 0000 Signed Impressions: Service Date/Time: Saturday, March 04, 2017 10:31 - CONCLUSION: 1. There is no hydronephrosis or renal abnormality to explain the renal failure. However, there is subtle high density stranding along the medial and upper pole of the right kidney. Suggest followup CT to assess for change. 2. Abnormal mass arising from or abutting the spleen in the left upper quadrant measuring up to 7.5 cm. It contains a small amount of calcification. Suggest correlating with any prior imaging study that could offer additional characterization. If none are available suggest followup imaging to confirm stability and consider contrast enhanced CT or MRI for further characterization when patient condition permits. 3. Small bilateral pleural effusions, left larger than right, with associated compressive atelectasis. 4. Severe coronary artery calcification. Kilo Coulter MD Renal Ultrasound 02/27/17 0000 Signed Impressions: Service Date/Time: Monday, February 27, 2017 20:36 - CONCLUSION: 1. Mildly dilated left renal collecting system. Kidneys normal in size. Trace free fluid. Ruy Hussein MD Head CT 02/23/17 0000 Signed Impressions: Service Date/Time: Thursday, February 23, 2017 07:38 - CONCLUSION: No significant change has occurred. Maximus Pavon MD Objective Remarks GENERAL: 57-year-old male, intermittently agitated on ventilator via tracheostomy. SKIN: Warm and dry. HEAD: Atraumatic. Normocephalic. EYES: Pupils equal, 2 mm bilaterally and reactive. ENT: No nasal bleeding or discharge. NECK: Trachea midline. Trach site with pressure wound at lower half. Thick white secretions CARDIOVASCULAR: RRR, tachycardic. S1, S2 no S4. Without murmur. No JVD. RESPIRATORY: Diminished breath sounds left lung thomas. Bilateral rhonchi. GASTROINTESTINAL: Abdomen soft, non-tender, nondistended. Active bowel sounds. No guarding. MUSCULOSKELETAL: Extremities without without significant peripheral edema. Well perfused. NEUROLOGICAL: Follows commands bilateral upper and lower extremities. Moves extremities x 4 spontaneously. Agitated. Procedures 03/28: Bronchoscopy Date of Insertion: Feb 23, 2017 A/P Assessment and Plan Neuro/Psych: Encephalopathy/Delirium most likely metabolic Admission with EtOH withdrawal - likely completed Polysubstance abuse including cocaine and benzodiazepines Polyneuropathy of critical illness Agitation Improved neuro exam. Was following commands, oriented to person place and time before sedation for intubation and trach 03/20/17 Patient wa followed by Dr. Rogel neurology. EEG's reveal moderate encephalopathy no epileptiform activity. MRI negative for acute findings Previously on Seroquel 25 mg at night DCd and Haldol when necessary- discontinued 03/15/17 Librium DCd 03/15/17 Seizure precautions ?Seizures 03/10-EEG negative for seizures. Will discontinue thiamine 100 mg daily Will hold all sedative medications, continue supportive care when patient's agitated. 03/23- cognitive evaluation by Dr. Sheriff -no decision-making capacity 03/24 lorazepam discontinued Currently under comfort measures. See orders for lorazepam, Levsin and morphine Respiratory: Acute hypoxemic respiratory failure secondary to aspiration Recurrent left lower lobe collapse/mucus plugging Complete opacification of left lung field due to mucus plugging 03/18/17 s/p tracheostomy 03/20/17 Status post extubation after therapeutic bronchoscopy 03/18/17 and reintubated for left lower lobe collapse on 03/20/17 s/p Tracheostomy 03/21/17. Difficult bronchoscopy with therapeutic scope and multiple attempts to remove very thick mucus plugs from left main bronchus. Albuterol/ipratropium aerosols every 6 hours with albuterol aerosols to daily at bedtime as needed for dyspnea Added hypertonic saline 3% every 6 hours 5 days Chest percussion with speciality bed Currently on methylprednisolone 40 mg IV twice a day CT thorax from 03/09 revealed collapse left upper/lingula lobes with significant secretions left main bronchus. s/p bronch Improved aeration 03/10 Continue attempts at T piece trials, aggressive pulmonary toileting 03/28 and 04/02 Bronchoscopy Oxygen for comfort Cardiovascular: Hypertension Currently on metoprolol 25 mg twice a day and drowsing 25 mg twice a day for hypertension Use when necessary labetalol and hydralazine when patient is nothing by mouth Maintain MAP > 65 mmHG Discontinued Bumetanide Renal: Acute kidney injury secondary to ATN Accurate I's and O's, Monitor urine output. No signs of hydronephrosis on renal imaging, Urine eosinophils negative No labs done several days. Transition to hospice care in a.m. FEN/GI: Mild protein calorie malnutrition Hyperkalemia-resolved Hep C Continue tube feeds, hold off PEG tube as patient may be able to take PO diet once off vent Lansoprazole for GI prophylaxis will be discontinued Docusate sodium senna 1 tablet twice a day for bowel regimen. Free water 250cc every 8 hours will be discontinued Heme/ID: Macro Anemia Thrombocytopenia Probable Pneumonia F/U BAL 03/15-neg to date On previous cultures in BAL have been negative except 02/23 coag negative staph which is contamination Cefepime discontinued 03/19/17, DCd Flagyl and azithromycin 03/09/17-9/21/17 10/2 C Diff negative Endocrine: Sliding-scale insulin to maintain euglycemia/low regimen with NovoLog every 6 hours Prophylaxis: GI Prophylaxis Lansoprazole will be discontinued DVT Prophylaxis SCDs/heparin subcutaneous will be discontinued Lines: Peripheral IVs providing adequate access at this time. Level II follow-up. Withdrawal care today. Barrington Vazquez MD Apr 03, 2017 15:49
[2017-04-03] MEDS: MORPHINE SULFATE 8 MG/ML INJ IV PUSH PRN ×2 (15:51→16:43)
[2017-04-03] MEDS ORDERED: MORPHINE SULFATE 4 MG/ML INJ IV PUSH SCH (16:00)
[2017-04-03] MEDS: HYOSCYAMINE 0.5 MG/ML AMP IV PUSH PRN ×2 (16:00→22:11)
[2017-04-03] MEDS: MORPHINE SULFATE 4 MG/ML INJ IV PUSH SCH ×3 (17:50→22:11)
[2017-04-03] MEDS: MORPHINE SULFATE 4 MG/ML INJ IV PUSH PRN ×2 (18:43→19:31)
[2017-04-04] MEDS: MORPHINE SULFATE 4 MG/ML INJ IV PUSH SCH ×4 (00:13→06:00)
[2017-04-04] MEDS: LORazepam 2 MG/ML VIAL IV PUSH SCH ×2 (00:14→04:08)
[2017-04-04] MEDS: HYOSCYAMINE 0.5 MG/ML AMP IV PUSH PRN (02:10)
[2017-04-04] MEDS: LORazepam 2 MG/ML VIAL IV PUSH PRN (02:20)
[2017-04-04] MEDS: ARTIFICIAL TEARS OPTH SOLN 15 ML BTL EACH EYE SCH (06:00)
--- NOTE | 2017-04-04 14:59 | HHI.DS ---
Summary Note Date of : Apr 04, 2017 Time Of : 05 Admission Date Feb 23, 2017 at 10:04 Admitting Diagnosis AMS, SUSPECT DELIRIUM TREMENS Diagnosis at Time of : (1) Respiratory disease ICD Code: J98.9 - Respiratory disorder, unspecified Diagnosis: Principal (2) Alcohol intoxication ICD Code: F10.129 - Alcohol abuse with intoxication, unspecified Diagnosis: Principal (3) COPD (chronic obstructive pulmonary disease) ICD Code: J44.9 - Chronic obstructive pulmonary disease, unspecified Diagnosis: Principal Procedures 03/28 and 04/02: Bronchoscopy Brief History This is a 57-year-old male that was found down and admitted to this hospital 02/23/2017. Urine tox screen revealed patient was positive for benzodiazepines and cocaine at that time. Since admission the patient has been on a [facility] protocol, neurology has been consulted Dr. Wayne, with continued supportive care. Over the last 48 hours the patient was noted to have elevation in his creatinine with a significant decrease in urine output acute renal failure nephrology was consulted the patient continues on gentle diuresis and received 80 mg of Lasix IV this afternoon and is currently on sodium bicarbonate infusion at 110 cc/an hour. Due to the patient's respiratory insufficiency, and altered mental status concern for possible continued respiratory decompensation the patient was transferred to the ICU, and critical care was consulted for management. Upon entering the patient's room the patient was noted to be lethargic having received 4 mg of Ativan in the last 4 hours, but opens eyes to sternal rub. The patient was noted to have O2 saturation of 95% on O2 via nasal cannula at 5 L with no accessory respiratory efforts. Stat ABG was ordered pending, to rule out CO2 narcosis. Since admission to ICU the patient was noted to diuresis of 700 cc. 03/03: Afebrile. The patient did not receive any Ativan since 3 PM on 03/02/17. The patient rested well overnight, eventually waking and responding. This a.m. the patient's noted to be sitting up in bed, alert and responsive. Librium has been added to medication regimen for alcohol withdrawal. Noted to be oriented to date of unable to provide name or place at this time. Essential tremors, fine tremors noted. The patient severely weak and unable to feed self without assistance. The patient's diet was advanced to regular diet, tolerating well, 100% consumption. PO meds were held since admission to ICU secondary to lethargy, all by mouth meds resumed this a.m.. The patient currently is compliant following commands, inappropriate responses, with noted incomprehensible words, language at times. Patient is noted to be very weak. Nasal cannula O2 has been weaned down to approximately 3 L, the patient appears in no respiratory distress. 03/09: Reconsulted secondary acute respiratory failure. Chest x-ray earlier in the morning revealed collapse versus large pleural effusion left side. Patient oxygen requirements had increased from 4 L to a nonrebreather mask. CT thorax revealed likely mucous plugging/collapsed lung left side. Small to moderate left pleural effusion. Patient was combative upon arrival ICU in place in soft restraints. Due to mental status/mucous plugging patient was electively intubated using 20 mg etomidate and 50 mg, rocuronium. Patient was bronched which revealed thick white mucous plugging in the left and right mainstem. These were lavaged to left upper lobe/lingula and left lower lobe, right upper middle and lower lobes. Samples were sent see orders. Currently sedated with propofol and fentanyl drips. 03/10: Tonic seizures today when propofol stopped. Seizures ceased with propofol bolus. Left pneumonia persists but improved aeration after bronch . 03/11: Gas exchange acceptable. Continues to have tonic "seizures" when propofol is lightened. EEG 03/10 states no seizures but we will repeat EEG again today with stimulation and off propofol. Can't extubate until this "seizure" activity is resolved. Vomited tube feeds, will reduce and add reglan. 03/12: Off sedation tolerating CPAP even though intermittently apneic. Appears to follows commands but weekly on the upper extremity. No obvious seizures. EEG negative for seizure 03/11/17. Creatinine slightly improved to 2.8 from 3 03/13: Failed extubation on 03/12. Currently sedated, orally intubated on mechanical ventilation. Has thick copious respiratory secretions per [employer]. 03/14: Remains sedated, orally intubated on mechanical ventilation. Feeling C Pap trials. Not following commands on lightening sedation. 03/15: Remains intubated encephalopathy. Left lower lobe infiltrate again indicating probable mucous plugging/collapse. Palliative care meeting with family today. I recommend tracheostomy and PEG tube placement. D/W palliative care team 03/16: Off sedation since yesterday 5PM. Eyes open spontaneously. Following commands bilateral upper extremity, he squeezes with both hands. Discussed with Dr. Kingston. Will continue weaning attempt with plan for wean to extubate. s/p bronchoscopy yesterday, with re expansion of L lung. Has moderate secretions. I have updated Lore Darling (sister) about improvement in neuro exam. See below 03/17: Tolerated CPAP 7 hours yesterday. Currently on CPAP. Lethargic/somnolent but follows commands, gives thumbs up on bilateral UE. Creat stable. UO 750 ml in 24 hours. BAL negative to date 03/18: Remains intubated off sedation. There is further improvement in neuro exam, able to move both feet to command, gives thumbs up on both upper extremities. Chest x-ray shows complete white out of the left lung field. We' ll plan for emergency bronchoscopy 03/19: Extubated yesterday, overnight appeared to be having mucus plugging involving L lung. But currently patient is saturating well. He somnolent but wakes up easily and nodding appropriately and following commands, in the bilateral upper extremity 03/20: Today around 5.30 AM, patient acutely became hypoxemic with diminished breath sounds on the left lung field. Placed on nonrebreather clinical exam was consistent with left lower lobe mucus plugging according to Dr. Chadwick. With aggressive suctioning and Mucomyst and DuoNeb breathing treatments, patient 's air entry and saturation improved slightly. Currently on 100% nonrebreather oxygen saturation 90-92% tachypneic but not in severe distress. I discussed tracheostomy with the patient, witnessed by WHITNEY Marcial and Dixie. I explained to him that If he gets reintubated he will need tracheostomy due to frequent mucus plugging, with left lung collapse. Patient understands tracheostomy procedure, and wants tracheostomy done in case of reintubation. 03/21: Re intubated yesterday for LLL collapse. Tracheostomy performed yesterday afternoon. Difficult bronchoscopy with therapeutic bronchoscope and multiple attempts to remove the mucus plugging because of the very thick tenacious nature of the plugs. Continue breathing treatments Mucomyst for now. Chest percussion with speciality bed. 03/22: The patient tolerated trach collar trials approximately 1 hour yesterday. The patient continues to have thick secretions, aggressive pulmonary toileting continues with chest percussion. Today the patient indicated that he wanted to be placed back on DNR status. Discussion with family medicine primary service team for cognitive evaluation by psychiatry to assess competency in making this decision. Will continue care as planned, overweight recommendations from psychiatry and palliative medicine. Will hold medication for agitation until assessment is performed, and continue supportive care. 03/23: Acute events overnight. Patient tolerated T piece trials for approximately 5 hours yesterday. Psychiatry consulted seen today. The patient was deemed not competent, full report pending. 03/24: Patient became agitated during the night received 2 doses of Ativan which were ineffective Seroquel added to medication regimen low dose. The patient successfully underwent T piece trials for 6.5 hours yesterday as well as CPAP for 3 hours. Psychiatry was consulted and the patient was deemed not to have any decision-making capacity and sister continues to be the healthcare surrogate for the patient. Yesterday a female individual into the room and stated that she was the patient's palliative care was re-consulted as well as case management to follow-up if the individual is the patient's next of kin. The patient's sister states she was unaware that the patient was . 03/25: Patient noted to be less agitated today Seroquel was initiated yesterday. Patient tolerated T piece trials for approximately 4 hours yesterday. Creatinine improving today. 03/26: No acute events overnight. the patient has been maintained on TPiece trials for 12 hours. 03/27: This a.m. the patient was noted to be in hypoxemic respiratory failure, O2 sat precipitously dropped into the 70s. Aggressive pulmonary toileting with suctioning thick tenacious mucus was obtained, stat chest x-ray, 100% FiO2 with clearing. Mucomyst 2 days ordered .Plan bronchoscopy if no improvement. 03/28: Unable to wean ventilator. 03/29: Severely agitated intermittently. Ventilator dependent. 03/30: DNR status now per patient's prior directives. Continued issues with lung collapse. 03/31: Minor irritation below trach site with break in skin. 04/01: Interacts but unclear what he understands. He is hungry. 04/02: Status post bronchoscopy today for mucus plugging. Afebrile. Off care proxy desires hospice care at the present time. Exhibits B&C signed. 04/03: Withdrawals care at 1500. Comfort measures been initiated. Significant Findings Microbiology Date/Time Source Procedure Growth Status 03/02/17 10:56 Blood Peripheral Aerobic Blood Culture - Final NO GROWTH IN 5 DAYS Complete 03/02/17 10:56 Blood Peripheral Anaerobic Blood Culture - Final NO GROWTH IN 5 DAYS Complete 03/02/17 11:50 Stool Stool Stool Occult Blood (LILLY) - Final HEMOCCULT NEGATIVE Complete 03/15/17 15:40 Bronchial Brushings Left Lower Lobe Fungal Smear - Final NO FUNGAL ELEMENTS SEEN. Resulted 03/15/17 15:40 Bronchial Brushings Left Lower Lobe Fungal Culture - Preliminary NO GROWTH IN 2 WEEKS Resulted 03/09/17 18:50 Urine Catheterized Urine Streptococcus pneumoniae Antigen (M - Final PRESUMPTIVE NEGATIVE FOR STREPTOCOCCU... Complete Imaging Last Impressions Chest X-Ray 04/02/17 0000 Signed Impressions: Service Date/Time: Sunday, April 02, 2017 16:40 - CONCLUSION: Interval improvement left base following bronchoscopy.. No pneumothorax Nasir Mack MD FACR Abdomen X-Ray 03/13/17 0000 Signed Impressions: Service Date/Time: Monday, March 13, 2017 13:04 - CONCLUSION: 1. The tip of the NG tube is just through the GE junction and into the stomach. Cliff Mack MD Brain MRI 03/10/17 0000 Signed Impressions: Service Date/Time: Friday, March 10, 2017 15:01 - CONCLUSION: No acute infarct or other acute intracranial abnormality. Atrophy and chronic white matter changes are again noted. Kilo Rowell MD Chest CT 03/09/17 0000 Signed Impressions: Service Date/Time: Thursday, March 09, 2017 04:59 - CONCLUSION: 1. Marked volume loss in the left hemithorax with near-complete collapse of the left lower lobe/lingula. There is still some aeration in the left upper lung. Some of this is due to the moderate sized left-sided effusion although there may be element of airway obstruction/mucus plugging as well. 2. Small right-sided effusion with become atelectatic changes in the right base. 3. Patchy biapical airspace disease.. Tone Henry MD Shoulder X-Ray 03/05/17 0000 Signed Impressions: Service Date/Time: Sunday, March 05, 2017 20:57 - CONCLUSION: No acute disease. Rick Sanford MD Abdomen/Pelvis CT 03/04/17 0000 Signed Impressions: Service Date/Time: Saturday, March 04, 2017 10:31 - CONCLUSION: 1. There is no hydronephrosis or renal abnormality to explain the renal failure. However, there is subtle high density stranding along the medial and upper pole of the right kidney. Suggest followup CT to assess for change. 2. Abnormal mass arising from or abutting the spleen in the left upper quadrant measuring up to 7.5 cm. It contains a small amount of calcification. Suggest correlating with any prior imaging study that could offer additional characterization. If none are available suggest followup imaging to confirm stability and consider contrast enhanced CT or MRI for further characterization when patient condition permits. 3. Small bilateral pleural effusions, left larger than right, with associated compressive atelectasis. 4. Severe coronary artery calcification. Kilo Coulter MD Renal Ultrasound 02/27/17 0000 Signed Impressions: Service Date/Time: Monday, February 27, 2017 20:36 - CONCLUSION: 1. Mildly dilated left renal collecting system. Kidneys normal in size. Trace free fluid. Ruy Hussein MD Head CT 02/23/17 0000 Signed Impressions: Service Date/Time: Thursday, February 23, 2017 07:38 - CONCLUSION: No significant change has occurred. Maximus Pavon MD Hospital Course Neuro/Psych: Encephalopathy/Delirium most likely metabolic Admission with EtOH withdrawal - likely completed Polysubstance abuse including cocaine and benzodiazepines Polyneuropathy of critical illness Agitation Improved neuro exam. Was following commands, oriented to person place and time before sedation for intubation and trach 03/20/17 Patient wa followed by Dr. Rogel neurology. EEG's reveal moderate encephalopathy no epileptiform activity. MRI negative for acute findings Previously on Seroquel 25 mg at night DCd and Haldol when necessary- discontinued 03/15/17 Librium DCd 03/15/17 Seizure precautions ?Seizures 03/10-EEG negative for seizures. Will discontinue thiamine 100 mg daily Will hold all sedative medications, continue supportive care when patient's agitated. 03/23- cognitive evaluation by Dr. Sheriff -no decision-making capacity 03/24 lorazepam discontinued Currently under comfort measures. See orders for lorazepam, Levsin and morphine Respiratory: Acute hypoxemic respiratory failure secondary to aspiration Recurrent left lower lobe collapse/mucus plugging Complete opacification of left lung field due to mucus plugging 03/18/17 s/p tracheostomy 03/20/17 Status post extubation after therapeutic bronchoscopy 03/18/17 and reintubated for left lower lobe collapse on 03/20/17 s/p Tracheostomy 03/21/17. Difficult bronchoscopy with therapeutic scope and multiple attempts to remove very thick mucus plugs from left main bronchus. Albuterol/ipratropium aerosols every 6 hours with albuterol aerosols to daily at bedtime as needed for dyspnea Added hypertonic saline 3% every 6 hours 5 days Chest percussion with speciality bed Currently on methylprednisolone 40 mg IV twice a day CT thorax from 03/09 revealed collapse left upper/lingula lobes with significant secretions left main bronchus. s/p bronch Improved aeration 03/10 Continue attempts at T piece trials, aggressive pulmonary toileting 03/28 and 04/02 Bronchoscopy Oxygen for comfort Cardiovascular: Hypertension Currently on metoprolol 25 mg twice a day and drowsing 25 mg twice a day for hypertension Use when necessary labetalol and hydralazine when patient is nothing by mouth Maintain MAP > 65 mmHG Discontinued Bumetanide Renal: Acute kidney injury secondary to ATN Accurate I's and O's, Monitor urine output. No signs of hydronephrosis on renal imaging, Urine eosinophils negative No labs done several days. Transition to hospice care in a.m. FEN/GI: Mild protein calorie malnutrition Hyperkalemia-resolved Hep C Continue tube feeds, hold off PEG tube as patient may be able to take PO diet once off vent Lansoprazole for GI prophylaxis will be discontinued Docusate sodium senna 1 tablet twice a day for bowel regimen. Free water 250cc every 8 hours will be discontinued Heme/ID: Macro Anemia Thrombocytopenia Probable Pneumonia F/U BAL 03/15-neg to date On previous cultures in BAL have been negative except 02/23 coag negative staph which is contamination Cefepime discontinued 03/19/17, DCd Flagyl and azithromycin 03/09/17-03/15/17 10/2 C Diff negative Endocrine: Sliding-scale insulin to maintain euglycemia/low regimen with NovoLog every 6 hours Prophylaxis: GI Prophylaxis Lansoprazole will be discontinued DVT Prophylaxis SCDs/heparin subcutaneous will be discontinued Lines: Peripheral IVs providing adequate access at this time. Level II follow-up. Withdrawal care today. Barrington Vazquez MD Apr 04, 2017 14:59
== END 2017-04-04 08:56 | disposition expired | DRG 3 ==
LOC: NEPE 06:11 → NEDA 09:51 → OBSVTOIN 10:04 → N06A 17:04 → HIME 02-24 17:37 → N05B 03-01 16:50 → HCVR 03-02 16:42 → N06B 03-04 00:28 → N06A 03-07 00:08 → N03B 03-09 05:16
PROVIDERS: ADMIT Family Medicine; ATTEND Family Medicine
PROC: 0B9J8ZX Drainage of Left Lower Lung Lobe, Via Natural or Artificial Opening Endoscopic, Diagnostic (ICD-10-PCS; 2017-03-09)
PROC: 0B9C8ZX Drainage of Right Upper Lung Lobe, Via Natural or Artificial Opening Endoscopic, Diagnostic (ICD-10-PCS; 2017-03-09)
PROC: 0B9G8ZX Drainage of Left Upper Lung Lobe, Via Natural or Artificial Opening Endoscopic, Diagnostic (ICD-10-PCS; 2017-03-09)
PROC: 0B9D8ZX Drainage of Right Middle Lung Lobe, Via Natural or Artificial Opening Endoscopic, Diagnostic (ICD-10-PCS; 2017-03-09)
PROC: 0B9H8ZX Drainage of Lung Lingula, Via Natural or Artificial Opening Endoscopic, Diagnostic (ICD-10-PCS; 2017-03-09)
PROC: 0B9F8ZX Drainage of Right Lower Lung Lobe, Via Natural or Artificial Opening Endoscopic, Diagnostic (ICD-10-PCS; 2017-03-09)
PROC: 0BC78ZZ Extirpation of Matter from Left Main Bronchus, Via Natural or Artificial Opening Endoscopic (ICD-10-PCS; 2017-03-09)
PROC: 0BH17EZ Insertion of Endotracheal Airway into Trachea, Via Natural or Artificial Opening (ICD-10-PCS; 2017-03-09)
PROC: 5A1945Z Respiratory Ventilation, 24-96 Consecutive Hours (ICD-10-PCS; 2017-03-09)
PROC: 5A1955Z Respiratory Ventilation, Greater than 96 Consecutive Hours (ICD-10-PCS; 2017-03-12)
PROC: 0BH17EZ Insertion of Endotracheal Airway into Trachea, Via Natural or Artificial Opening (ICD-10-PCS; 2017-03-12)
PROC: 0B9J8ZX Drainage of Left Lower Lung Lobe, Via Natural or Artificial Opening Endoscopic, Diagnostic (ICD-10-PCS; 2017-03-15)
PROC: 0B9J8ZX Drainage of Left Lower Lung Lobe, Via Natural or Artificial Opening Endoscopic, Diagnostic (ICD-10-PCS; 2017-03-18)
PROC: 0B9G8ZX Drainage of Left Upper Lung Lobe, Via Natural or Artificial Opening Endoscopic, Diagnostic (ICD-10-PCS; 2017-03-18)
PROC: 0B113F4 Bypass Trachea to Cutaneous with Tracheostomy Device, Percutaneous Approach (ICD-10-PCS; principal; 2017-03-20)
PROC: 0B9H8ZZ Drainage of Lung Lingula, Via Natural or Artificial Opening Endoscopic (ICD-10-PCS; 2017-03-20)
PROC: 0B9L8ZZ Drainage of Left Lung, Via Natural or Artificial Opening Endoscopic (ICD-10-PCS; 2017-03-20)
PROC: 5A1955Z Respiratory Ventilation, Greater than 96 Consecutive Hours (ICD-10-PCS; 2017-03-20)
PROC: 0BH17EZ Insertion of Endotracheal Airway into Trachea, Via Natural or Artificial Opening (ICD-10-PCS; 2017-03-20)
PROC: 03HY32Z Insertion of Monitoring Device into Upper Artery, Percutaneous Approach (ICD-10-PCS; 2017-03-27)
PROC: 0BJ08ZZ Inspection of Tracheobronchial Tree, Via Natural or Artificial Opening Endoscopic (ICD-10-PCS; 2017-03-28)
PROC: 0BCB8ZZ Extirpation of Matter from Left Lower Lobe Bronchus, Via Natural or Artificial Opening Endoscopic (ICD-10-PCS; 2017-04-02)
DX: F10.231 Alcohol dependence with withdrawal delirium (principal); N17.0 Acute kidney failure with tubular necrosis; J69.0 Pneumonitis due to inhalation of food and vomit; G62.81 Critical illness polyneuropathy; G93.41 Metabolic encephalopathy; G93.1 Anoxic brain damage, not elsewhere classified; E72.20 Disorder of urea cycle metabolism, unspecified; J96.01 Acute respiratory failure with hypoxia; R18.8 Other ascites; E44.1 Mild protein-calorie malnutrition; E87.1 Hypo-osmolality and hyponatremia; L03.113 Cellulitis of right upper limb; N13.30 Unspecified hydronephrosis; J98.11 Atelectasis; Z68.1 Body mass index [BMI] 19.9 or less, adult; E87.4 Mixed disorder of acid-base balance; Z51.5 Encounter for palliative care; F14.10 Cocaine abuse, uncomplicated; F32.9 Major depressive disorder, single episode, unspecified; E16.2 Hypoglycemia, unspecified; B19.20 Unspecified viral hepatitis C without hepatic coma; I10 Essential (primary) hypertension; T36.8X5A Adverse effect of other systemic antibiotics, initial encounter; E86.0 Dehydration; E87.5 Hyperkalemia; I25.2 Old myocardial infarction; R40.2412 Glasgow coma scale score 13-15, at arrival to emergency department; J98.09 Other diseases of bronchus, not elsewhere classified; E87.6 Hypokalemia; D64.9 Anemia, unspecified; R16.1 Splenomegaly, not elsewhere classified; G40.909 Epilepsy, unspecified, not intractable, without status epilepticus; I95.9 Hypotension, unspecified; J44.9 Chronic obstructive pulmonary disease, unspecified; D69.6 Thrombocytopenia, unspecified; M19.90 Unspecified osteoarthritis, unspecified site; F10.27 Alcohol dependence with alcohol-induced persisting dementia; F12.90 Cannabis use, unspecified, uncomplicated; F17.210 Nicotine dependence, cigarettes, uncomplicated; F41.9 Anxiety disorder, unspecified; Y90.0 Blood alcohol level of less than 20 mg/100 ml; Z59.0 Homelessness; Z63.8 Other specified problems related to primary support group; Z66 Do not resuscitate; Z78.1 Physical restraint status; Z91.5 Personal history of self-harm; Z99.3 Dependence on wheelchair
CPT/HCPCS: 31500; 31600; 31624; 36556; 36600; 70450; 70551; 71010; 71250; 73030; 74000; 74176; 76775; 76937; 80048; 80053; 80074; 80202; 80307; 81001; 82010; 82140; 82150; 82272; 82550; 82570; 82607; 82746; 82805; 82948; 83605; 83690; 83735; 83880; 83921; 84100; 84145; 84207; 84244; 84300; 84425; 84443; 84484; 85007; 85025; 85027; 85379; 85384; 85610; 85652; 85730; 86021; 86038; 86039; 86160; 86225; 86403; 86592; 87015; 87040; 87070; 87077; 87086; 87102; 87106; 87116; 87186; 87205; 87206; 87449; 87493; 87556; 87641; 87798; 87804; 89051; 93005; 94002; 94003; 94150; 94640; 94664; 94667; 94668; 95819; 96365; 96367; 96375; 96376; C9113; G0481; J0131; J0330; J0360; J0456; J0610; J0692; J1630; J1644; J1940; J1953; J1980; J2060; J2250; J2270; J2543; J2765; J2920; J2930; J3010; J3370; J3411; J3480; J7030; J7040; J7050; J7070; J7608; J7613; P9047